=== PATIENT | female | born 1970 | race Caucasian/White ===

== ENCOUNTER 2017-03-29 08:54 | Emergency (ER) | payer MEDICARE, OTHER ==
[~2017-03-29] VITALS: Ht 170.2 cm; Wt 99.8 kg
--- OUTSIDE RECORDS SUMMARY | ~2017-03-29 | XMS | Encounter Summary ---
Demographics + + + | Address | [address] | | | [place] [address] | + + + | Home Phone [...] + + + | Author | [facility] | + + + | Organization | [facility] | + + + | Address | Unknown | + + + | Phone | Unavailable | + + + Support +------+ + + + +-------+ | Name | Relationship | Address | Phone | +------+ + + + +-------+ ECON | [address] | | [place] | [address] | +------+ + + + +-------+ ECON | Unknown | | +------+ + + + +-------+ Care Team Providers + +------+-------+ | Care 3Rd Pressman Name | Role | Phone | + +------+-------+ | Patricia Stevens | PCP | tel | + +------+-------+ Reason for Visit + + + | [...] Treatment Question | | 2017 | | [facility] [address] | [address] | (brace for right | | | | Ave Mailcode: CH8N | [place], [place] | ankle ) | | | | [facility] | [address] | | | | | and Healing, 8th | [phone] | | | | | Floor [place], [place] | | | | | | [address] | | | | | | [phone] | | | +--------+ + + + [...] + +---------+ + | Alcohol Use | Drinks/We | oz/Week | Comments | | | ek | | | + + +---------+ + | No | 0-3 | 0.0 - | | | | Cans of | 1.8 | | | | beer | | | + + +---------+ + + + + | Sex Assigned at | Date Recorded | | | | + + + | Not on file | | + + + as of this encounter Plan of Treatment +--------+ + + + + | Date | Type | Specialty | Care Team | Description | +--------+ + + + + | 04/17/ | Appointment | Radiology | Bernardo, | | | 2017 | | | REENA Hunter | | | | | | [address] | | | | | | [place], [place] | | | | | | [address] | | | | | | [phone] | | | | | | | | +--------+ + + + + | 04/17/ | Office | Neurological Surgery | Nolvia Delgado, | | | 2017 | Visit | | MD [address] | | | | | | [place], [place] | | | | | | [address] | | | | | | [phone] | | | | | | | | +--------+ + + + + as of this encounter Visit Diagnoses + + | Diagnosis | + + | Right leg weakness - Primary | + + | Other musculoskeletal symptoms referable to limbs | + + | Hydrocephalus | + + | Obstructive hydrocephalus | + + | Acute on chronic intracranial subdural hematoma (HCC) | + +"
--- OUTSIDE RECORDS SUMMARY | ~2017-03-29 | XMS | Encounter Summary ---
Demographics + + + | Address | [address] | | | [place] [address] | + + + | Home Phone [...] Author + + + | Author | [facility] | + + + | Organization | [facility] | + + + | Address | Unknown | + + + | Phone | Unavailable | + + + Support +------+ + + + +-------+ | Name | Relationship | Address | Phone | +------+ + + + +-------+ ECON | [address] | | [place] | [address] | +------+ + + + +-------+ ECON | Unknown | | +------+ + + + +-------+ Care Team Providers + +------+-------+ | Care Glazier Apprentice Name | Role | Phone | [...] Treatment Planning | | 2017 | | [facility] [address] | [address] | | | | | [place] Mailcode: CH8N | [place], [place] | | | | | [facility] | [address] | | | | | and [address], 8th | [phone] | | | | | Floor [place], [place] | | | | | | [address] | | | | | | [phone] | | | +--------+ + + + [...] Hunter | | | | | | [address] | | | | | | [place] | | | | | | [address] | | | | | | [phone] | | | | | | | | +--------+ + + + + | 04/17/ | Office | Neurological Surgery | Nolvia Delgado, | | | 2017 | Visit | | MD [address] | | | | | | [place], [place] | | | | | | [address] | | | | | | [phone] | | | | | | | | +--------+ + + + + as of this encounter Visit Diagnoses Not on filein this encounter"
--- OUTSIDE RECORDS SUMMARY | ~2017-03-29 | XMS | Encounter Summary ---
Demographics + + + | Address | [address] | | | [place] [address] | + + + | Home Phone | | + + + | Preferred Language | Unknown | + + + | Marital Status | Single | + + + | Taoist Affiliation | NRP | + + + [...] [address] | | [place] | [address] | +------+ + + + +-------+ ECON | Unknown | | +------+ + + + +-------+ Care Team Providers + +------+-------+ | Care Strength And Conditioning Coach Name | Role | Phone | + [...] | | | Ave Mailcode: CH8N | [place], [place] | ankle ) | | | | [facility] | [address] | | | | | and Healing, 8th | [phone] | | | | | Floor [place], [place] | | | | | | [address] | | | | | | [phone] | | | +--------+ + + + [...] Hunter | | | | | | [address] | | | | | | [place], [place] | | | | | | [address] | | | | | | [phone] | | | | | | | | +--------+ + + + + | 04/17/ | Office | Neurological Surgery | Nolvia Delgado, | | | 2017 | Visit | | MD [address] | | | | | | [place], [place] | | | | | | [address] | | | | | | [phone] | | | | | | | [...]
--- OUTSIDE RECORDS SUMMARY | ~2017-03-29 | XMS | Clinical Summary ---
Demographics + + + | Address | [address] | | | [place] [address] | + + + | Home Phone [address] | | [place] | [address] | +------+ + + + +-------+ ECON | Unknown | | +------+ + + + +-------+ Care Team Providers + +------+-------+ | Care Regional Rehabilitation Director Name | Role | Phone | + +------+-------+ | Patricia Stevens | PP | tel | + +------+-------+ Source Comments MIRIAM is fully live on both [facility] Ambulatory and [facility] InPatient.[facility] Allergies No Known Allergies Current Medications + + +--------+---------+------+------+-------+ | Prescription | Sig. | Disp. | Refills | Star | End | Statu | | | | | | t | Date | s | | | | | | Date | | | + + +--------+---------+------+------+-------+ | MULTIVITAMIN ORAL | Take 1 tablet by | | | | | Activ | | | mouth once daily in | | | | | e | | | the morning. | | | | | | + + +--------+---------+------+------+-------+ | lamoTRIgine 100 mg | Take 100 mg by mouth | | | | | Activ | | Oral tablet | two times daily. | | | | | e | + + +--------+---------+------+------+-------+ | loratadine 10 mg | Take 10 mg by mouth | | | | | Activ | | oral tablet | once daily as needed | | | | | e | | | (seasonal | | | | | | | | allergies). | | | | | | + + +--------+---------+------+------+-------+ | baclofen 10 mg | Take 0.5 tablets by | 30 | 0 | 06/0 | | Activ | | oral | mouth once daily at | tablet | | 8/20 | | e | | tabletIndications: | bedtime. | | | 17 | | | | Muscle Spasticity of | Indications: Muscle | | | | | | | Spinal Origin | Spasticity of Spinal | | | | | | | | Origin | | | | | | + + +--------+---------+------+------+-------+ | acetaminophen 325 | Take 2 tablets by | | | 06/0 | | Activ | | [...] | | | | | + + +--------+---------+------+------+-------+ | oxyCODONE | Take 1-2 tablets by | 50 | 0 | 07/1 | | Activ | | (immediate release) | mouth every six | tablet | | 1/20 | | e | | 5 mg oral | hours as needed for | | | 17 | | | | tabletIndications: | moderate pain or | | | | | | | Pain | severe pain. | | | | | | | | Indications: Pain | | | | | | + + +--------+---------+------+------+-------+ | polyethylene | Mix 1 packet and | | | 07/1 | | Activ | | glycol 17 gram oral | take orally three | | | 1/20 | | e | | powder in | times daily as | | | 17 | | | | packetIndications: | needed (1st line - | | | | | | | Subdural hematoma | for no BM for 2 | | | | | | | (HCC) | days). | | | | | | + + +--------+---------+------+------+-------+ | senna-docusate | Take 2 tablets by | 60 | 0 | 07/ | | Activ | | 8.6-50 mg oral | mouth two times | tablet | | 1/20 | | e | | tabletIndications: | daily. For | | | 17 | | | | constipation | post-operative | | | | | | | | constipation, | | | | | | | | discontinue for | | | | | | | | loose stool. | | | | | | | | Indications: | | | | | | | | constipation | | | | | | + + +--------+---------+------+------+-------+ Active Problems + + + | Problem | Noted Date | + + + | Acute on chronic intracranial subdural hematoma (HCC) | 08/17/2016 | + + + + --+ | Overview: Patient had a known small chronic SDH (stable on CT | | 07/28/2016). On 08/17, noted to be larger (6cm) secondary to | | possible overdrainage from VPS. Strata Valve was increased to 2.5 | | Repeat imaging was stable. Last Assessment & Plan: S/p ALICE | | Hole placement b/l on 09/20.NSICU Goals:Neurochecks Q1HSBP<160Na: | | Eunatremia, Fluid: EuvolemiaWill keep flat x24 hours (6PM on | | 09/21), with mobilization to sit upright for ADLs/nutrition. | |Will keep flat x24 hours (6PM on 09/21), with mobilization to sit upright for ADLs/nutrition. | + --+ + + + | Seizure disorder (HCC) | 08/17/2016 | + + + + [...] Multiple EVD placements, now s/p R occipital DIETITIAN ASSISTANT shunt | | placement in October 2015 [...] + + | 02/18/ | Telephone | | Nolvia Delgado, | | | 2016 | | | MD | | +--------+ + + + + | 01/13/ | Telephone | | Nolvia Delgado, | Treatment Planning | | 2016 | | | MD | | +--------+ + + + + | 01/09/ | Telephone | | Nolvia Delgado, | Treatment Question | | 2016 | | | MD | (brace for right | | | | | | ankle ) | +--------+ + + + + from [...] Filed Vital Signs + + + + | Vital Sign | Reading | Time Taken | + + + + | Blood Pressure | 127/86 | 12/26/2016 3:50 PM PDT | + + + + | Pulse | 74 | 12/26/2016 3:50 PM PDT | + + + + | Temperature | 36.3 C (97.4 F) | 12/26/2016 3:50 PM PDT | + + + + | Respiratory Rate | 16 | 09/24/2016 11:48 AM PDT | + + + + | Oxygen Saturation | 94% | 09/24/2016 11:48 AM PDT | + + + + | Inhaled Oxygen | - | - | | Concentration | | | + + + + | Weight | 96.2 kg (212 lb) | 12/26/2016 3:50 PM PDT | + + + + | Height | 170.2 cm (5' 7") | 09/20/2016 2:44 PM PDT | + + + + | Body Mass Index | 33.2 | 12/26/2016 3:50 PM PDT | + + + + Plan of Treatment +--------+ + + + + | Date | Type | Specialty | Care Team | Description | +--------+ + + + + | 04/17/ | Appointment | | Bernardo, | | | 2017 | | | REENA Hunter | | | | | | [address] | | | | | | [place], [place] | | | | | | [address] | | | | | | [phone] | | | | | | | | +--------+ + + + + | 04/17/ | Office | | Nolvia Delgado, | | | 2017 | Visit | | MD [address] | | | | | | [place], [place] | | | | | | [address] | | | | | | [phone] | | | | | | | | +--------+ + + + + + + + + + | Health Maintenance | Due Date | Last Done | Comments | + + + + + | INFLUENZA VACCINE | | | | | (FLU SHOT) | 7 | | | + + + + + Implants + +------+--------+ +--------+--------+--------+ | Implanted | Type | Area | Manufacture | Device | Expira | Model | | | | | r | | tion | / | | | | | | Identi | Date | Serial | | | | | | fier | | / Lot | + +------+--------+ +--------+--------+--------+ | Evd CathImplanted: Qty: 1 on | | Left: | | | 10/18/ | [id number] | | 03/20/2012 by Carlos Baron, | | Head | | | 2013 | 0 / | | MD | | | | | | /[id number] | | | | | | | | 7 | + +------+--------+ +--------+--------+--------+ | Catheter Bactiseal Shunt Kit | | | HAYDEN & | | 08/14/ | [id number] | | - [id number]: Qty: 1 | | | HAYDEN | | 2017 | 2 / | | on 11/08/2015 by Nathaniel Ybarra | | | JOSE | | | /CVP | | D, MD | | | | | | D | + +------+--------+ +--------+--------+--------+ | Valve Shunt Strata Ii Csf | | | [employer] | | 08/14/ | [id number] | | Small 30mm Full Port 2in - | | | SOFAMOR | | 2018 | / | | [id number]: Qty: 1 on | | | TANYA | | | /[id number] | | 11/08/2015 by Nathaniel Ybarra D, | | | | | | 5 | | MD | | | | | | [...] | | | | | | | [id number]: Qty: 10 | | | | | | | | on 09/20/2016 by Ashish, | | | | | | | | Nata Wolf MD | | | | | | | + +------+--------+ +--------+--------+--------+ | Cover Adger Hole .5mm 17mm | | Left: | [facility] | | | 421.52 | | Craniomaxillofacial Titanium | | Head | | | | 7 / / | | Low Profile Nonsterile - | | | | | | | | [id number]: Qty: 1 on | | | | | | | | 09/20/2016 by Nolvia Delgado | | | | | | | | MD Azul | | | | | | | + +------+--------+ +--------+--------+--------+ | Cover Adger Hole .5mm 12mm | | Right: | [facility] | | | 421.52 | | Craniomaxillofacial Titanium | | Head | | | | 5 / / | | Low Profile Nonsterile - | | | | | | | | [id number]: Qty: 2 on | | | | | | | | 09/20/2016 by Ashish, | | | | | | | | Nata Wolf MD | | | | | | | + +------+--------+ +--------+--------+--------+ Results Not on filefrom Last 3 Months
--- OUTSIDE RECORDS SUMMARY | ~2017-03-29 | XMS | Encounter Summary ---
Demographics + + + | Address | [address] | | | [place] [address] | + + + | Home Phone [address] | | [place] | [address] | +------+ + + + +-------+ ECON | Unknown | | +------+ + + + +-------+ Care Team Providers + +------+-------+ | Care Tilting Saw Operator Name | Role | Phone | + +------+-------+ | Patricia Stevens | PCP | tel | + +------+-------+ Reason for Referral Diagnostic Testing (Routine) + +--------+ + + + + | Status | Reason | Specialty | Diagnoses / | Referred By | Referred To | | | | | Procedures | Contact | Contact | + +--------+ + + + + | New Request | | Radiology | Diagnoses | Bernardo, | | | | | | | Kristen Duran, | | | | | | Hydrocephalu | PA [address] | | | | | | s Acute on | [address] | | | | | | chronic | [place], [place] | | | | | | intracranial | [address] | | | | | | subdural | Phone: | | | | | | hematoma | [phone] | | | | | | ([facility]) | Fax: | | | | | | Procedures | [phone] | | | | | | CT HEAD WO | | | | | | | CONTRAST | | | + +--------+ + + + + Encounter Details +--------+ + + + + | Date | Type | Department | Care Team | Description | +--------+ + + + + | 02/18/ | Telephone | Neurosurgery at | Nolvia Delgado, | | | 2016 | | [facility] [address] | MD [address] | | | | | Ave Mailcode: CH8N | [facility] [place] | | | | | [facility] | [address] | | | | | and Healing, 8th | [phone] | | | | | Floor [place], [place] | | | | | | [address] | | | | | | [phone] | | | +--------+ + + + [...] Hunter | | | | | | [address] | | | | | | [facility] [place] | | | | | | [address] | | | | | | [phone] | | | | | | | | +--------+ + + + + | 04/17/ | Office | Neurological Surgery | Nolvia Delgado, | | | 2017 | Visit | | [address] | | | | | | [place], [place] | | | | | | [address] | | | | | | [phone] | | | | | | | | +--------+ + + + + + +--------+ + + | Name | Priori | Associated Diagnoses | Order Schedule | | | ty | | | + +--------+ + + | CT HEAD WO CONTRAST | Routin | Hydrocephalus | Expected: | | | e | Acute on chronic | 02/18/2017, Expires: | | | | intracranial | 03/21/2018 | | | | subdural hematoma | | | | | ([facility]) | | + +--------+ + + as of this encounter Visit Diagnoses + + | Diagnosis | + + | Hydrocephalus - Primary | + + | Obstructive hydrocephalus | + + | Acute on chronic intracranial subdural hematoma (HCC) | + +"
--- OUTSIDE RECORDS SUMMARY | ~2017-03-29 | XMS | Clinical Summary ---
Demographics + + + | Address | [address] | | | [place] [address] | + + + | Home Phone [address] | | [place] | [address] | +------+ + + + +-------+ ECON | Unknown | | +------+ + + + +-------+ Care Team Providers + +------+-------+ | Care Social Worker Clinical Name | Role | Phone | + +------+-------+ | Patricia Stevens | PP | tel | + +------+-------+ Source Comments MIRIAM is fully live on both [facility] Ambulatory and [facility] InPatient.[facility] Allergies No Known Allergies Current Medications + [...] Multiple EVD placements, now s/p R occipital HUMAN SERVICE SPECIALIST shunt | | placement in October 2015 [...] Hunter | | | | | | [address] | | | | | | [place], [place] | | | | | | [address] | | | | | | [phone] | | | | | | | | +--------+ + + + + | 04/17/ | Office | | Nolvia Delgado, | | | 2017 | Visit | | MD [address] | | | | | | [place], [place] | | | | | | [address] | | | | | | [phone] | | | | | | | [...] MD | | | | | | /[id number] | | | | | | | | 7 | + +------+--------+ +--------+--------+--------+ | Catheter Bactiseal Shunt Kit | | | HAYDEN & | | 08/14/ | [id number] | | - [id number]: Qty: 1 | | | HAYDEN | | 2017 | 2 / | | on 11/08/2015 by Nathaniel Ybarra | | | JOSE | | | /CVP | | D, MD | | | | | | D | + +------+--------+ +--------+--------+--------+ | Valve Shunt Strata Ii Csf | | | [employer] | | 08/14/ | [id number] | | Small 30mm Full Port 2in - | | | SOFAMOR | | 2018 | / | | [id number]: Qty: 1 on | | | TANYA [...] | | | | | | | [id number]: Qty: 10 | | | | | | | | on 09/20/2016 by Ashish, | | | | | | | | Nata Wolf MD | | | | | | | + +------+--------+ +--------+--------+--------+ | Cover [place] Hole .5mm 17mm | | Left: | [facility] | | | 421.52 | | Craniomaxillofacial Titanium | | Head | | | | 7 / / | | Low Profile Nonsterile - | | | | | | | | [id number]: Qty: 1 on | | | | | | | | 09/20/2016 by Nolvia Delgado | | | | | | | | MD Azul | | | | | | | + +------+--------+ +--------+--------+--------+ | Cover [place] Hole .5mm 12mm | | Right: | [facility] | | | 421.52 | | Craniomaxillofacial Titanium | | Head | | | | 5 / / | | Low Profile Nonsterile - | | | | | | | | [id number]: Qty: 2 on | | | | | | | | 09/20/2016 by Ashish, | | | | | | | | Nata Wolf MD | | | | | | | + +------+--------+ +--------+--------+--------+ Results Not on filefrom Last 3 Months
--- OUTSIDE RECORDS SUMMARY | ~2017-03-29 | XMS | Encounter Summary ---
Demographics + + + | Address | [address] | | | [place] [address] | + + + | Home Phone [address] | | [place] | [address] | +------+ + + + +-------+ ECON | Unknown | | +------+ + + + +-------+ Care Team Providers + +------+-------+ | Care Grade Teacher Name | Role | Phone | [...] | | | [address] Mailcode: CH8N | [place], [place] | | | | | [facility] | [address] | | | | | and [address], 8th | [phone] | | | | | Floor [place], [place] | | | | | | [address] | | | | | | [phone] | | | +--------+ + + + [...] [place] | | | | | | [address] | | | | | | [phone] | | | | | | | | +--------+ + + + + | 04/17/ | Office | Neurological Surgery | Nolvia Delgado, | | | 2017 | Visit | | MD [address] | | | | | | [place], [place] | | | | | | [address] | | | | | | [phone] | | | | | | | | +--------+ + + + + as of this encounter Visit Diagnoses Not on filein this encounter"
--- OUTSIDE RECORDS SUMMARY | ~2017-03-29 | XMS | Encounter Summary ---
Demographics + + + | Address | [address] | | | [place] [address] | + + + | Home Phone [address] | | [place] | [address] | +------+ + + + +-------+ ECON | Unknown | | +------+ + + + +-------+ Care Team Providers + +------+-------+ | Care Stage Set Up Worker Name | Role | Phone | + +------+-------+ | Patricia Steevns | PCP | tel | + +------+-------+ [...] | | | | | chronic | [place], [place] | | | | | | intracranial | [address] | | | | | | subdural | Phone: | | | | | | hematoma | [phone] | | | | | | ([facility]) | Fax: | | | | | | Procedures | [phone] | | | | | | CT [...] | | | Ave Mailcode: CH8N | [facility] [place] | | | | | [facility] | [address] | | | | | and Healing, 8th | [phone] | | | | | Floor [place], [place] | | | | | | [address] | | | | | | [phone] | | | +--------+ + + + [...] Hunter | | | | | | [address] | | | | | | [facility] [place] | | | | | | [address] | | | | | | [phone] | | | | | | | | +--------+ + + + + | 04/17/ | Office | Neurological Surgery | Nolvia Delgado, | | | 2017 | Visit | | [address] | | | | | | [place], [place] | | | | | | [address] | | | | | | [phone] | | | | | | | [...] subdural hematoma | | | | | ([facility]) | | + +--------+ + + as of this encounter Visit Diagnoses + + | Diagnosis | + + | Hydrocephalus - Primary | + + | Obstructive hydrocephalus | + + | Acute on chronic intracranial subdural hematoma (HCC) | + +"
[~2017-03-29 08:54] MED LIST: BACLOFEN10 MG PO; LAMOTRIGINE100 MG PO; MULTI VITAMIN1 EACH PO; VITAMIN B COMP1 EACH PO
[2017-03-29] MEDS ORDERED: BACLOFEN10 MG PO (09:21)
[2017-03-29] MEDS ORDERED: NORCO 5-325 TA1 EACH PO (09:39)
== END 2017-03-29 12:02 | disposition home or self-care (01) ==
LOC: ED 08:54
DX: S83.92XA Sprain of unspecified site of left knee, initial encounter (principal); Z98.890 Other specified postprocedural states; Z98.2 Presence of cerebrospinal fluid drainage device; Z79.899 Other long term (current) drug therapy; X50.9XXA Other and unspecified overexertion or strenuous movements or postures, initial encounter
CPT/HCPCS: 73560; 96372; 99283; J2270

== ENCOUNTER 2019-10-25 06:59 | Emergency (ER) | payer MEDICARE, OTHER ==
[~2019-10-25] VITALS: Ht 170.2 cm; Wt 99.8 kg
--- OUTSIDE RECORDS SUMMARY | ~2019-10-25 | XMS | Encounter Summary ---
Demographics + + + | Address | [address] | | | [place] [address] | + + + | Home Phone | | + + + | Preferred Language | Unknown | + + + | Marital Status | Single | + + + | Adventist Affiliation | NRP | + + + | Race | White | + + + | Ethnic Group | Not or | + + + Author + + + | Author | [facility] | + + + | Organization | [facility] | + + + | Address | Unknown | + + + | Phone | Unavailable | + + + Support + + + + + | Name | Relationship | Address | Phone | + + + + + | Malina Nicole | ECON | [address] | | | | | [place] | | | | | [address] | | + + + + + | Scott Nicole | ECON | Unknown | | + + + + + Care Team Providers + +------+ + | Care Epic Beacon Analyst Name | Role | Phone | + +------+ + | Gabe Baird DO | PCP | | + +------+ + Encounter Details +--------+ + + + + | Date | Type | Department | Care Team | Description | +--------+ + + + + | 04/13/ | Anesthesia | Preoperative | Aram, Tania, RN | | | 2020 | Event | Medicine Clinic at | [place], [place] | | | | | [facility] | [address] | | | | | [address] | | | | | | [facility] | | | | | | and Healing, | | | | | | [address] | | | | | | [place], [place] | | | | | | [address] | | | | | | [phone] | | | +--------+ + + + + Anesthesia Record + + + + + | Procedure Name | Responsible | Anesthesia Start | Anesthesia Stop Time | | | Anesthesiologist | Time | | + + + + + | PREANESTHETIC | | | | | EVALUATION | | | | + + + + + + + | No events on file. | + + +------+ | Meds | +------+ + + + No medications | on file. | + + + + + | No agents on file. | + + + + | No blood administrations on file. | + + + + | No LDAs on file. | + + documented in this encounter Social History + +-------+ +--------+------+ | Tobacco Use | Types | Packs/Day | Years | Date | | | | | Used | | + +-------+ +--------+------+ | Never Smoker | | | | | + +-------+ +--------+------+ + +---+---+---+ | Smokeless Tobacco: | | | | | Never Used | | | | + +---+---+---+ + + + + + | Alcohol Use | Drinks/Week | oz/Week | Comments | + + + + + | No | 0-3 Cans of beer | 0.0 - 3.0 | | + + + + + + + + | Sex Assigned at | Date Recorded | | | | + + + | Not on file | | + + + + + + + | Job Start Date | Occupation | Industry | + + + + | Not on file | Not on file | Not on file | + + + + + + + + | Travel History | Travel Start | Travel End | + + + + + + | No recent travel history available. | + + documented as of this encounter Functional Status + + + + | Functional Status | Response | Date of Assessment | + + + + | Because of a physical, mental, or emotional | Yes | 08/27/2018 | | condition, do you have serious difficulty | | | | doing errands alone such as visiting the | | | | doctor? | | | + + + + + + + + | Cognitive Status | Response | Date of Assessment | + + + + | Because of a physical, mental, or emotional | Yes | 08/27/2018 | | condition, do you have serious difficulty | | | | concentrating, remembering, or making | | | | decisions? (5 years old or older) | | | + + + + documented as of this encounter Plan of Treatment +--------+---------+ + + + | Date | Type | Specialty | Care Team | Description | +--------+---------+ + + + | 11/24/ | Office | Neurological Surgery | Nolvia Delgado, | | | 2020 | Visit | | [address] | | | | | | [place], [place] | | | | | | [address] | | | | | | [phone] | | | | | | | | +--------+---------+ + + + documented as of this encounter Visit Diagnoses Not on filedocumented in this encounter"
--- OUTSIDE RECORDS SUMMARY | ~2019-10-25 | XMS | Encounter Summary ---
Demographics + + + | Address | [address] | | | [place] [address] | + + + | Home Phone | | + + + | Preferred Language | Unknown | + + + | Marital Status | Single | + + + | Baptist Affiliation | NRP | + + + | Race | White | + + + | Ethnic Group | Not or | + + + Author + + + | Author | [facility] | + + + | Organization | [facility] | + + + | Address | Unknown | + + + | Phone | Unavailable | + + + Support + + + + + | Name | Relationship | Address | Phone | + + + + + | Malina Nicole | ECON | [address] | | | | | [place] | | | | | [address] | | + + + + + | Scott Mcgarry ECON | Unknown | | + + + + + Care Team Providers + +------+ + | Care Fire Control Technician B Name | Role | Phone | + +------+ + | Patricia Stevens | PCP | | + +------+ + Reason for Visit + + + | Reason | Comments | + + + | Foot pain | R | + + + | New patient | | | consultation | | + + + AUTH/CERT +--------+--------+ + + + + | Status | Reason | Specialty | Diagnoses / | Referred By | Referred To | | | | | Procedures | Contact | Contact | +--------+--------+ + + + + | Closed | | | | | | +--------+--------+ + + + + Encounter Details +--------+---------+ + + + | Date | Type | Department | Care Team | Description | +--------+---------+ + + + | 09/14/ | Office | Orthopaedics | Asim Sales, | Acquired equinovarus | | 2013 | Visit | [facility] at [facility] | MD [place] | deformity of right | | | | for Health and | [place], [place] | foot (Primary Dx) | | | | Healing [address] | [address] | | | | | [address] [facility] | [phone] | | | | | Health and Healing, | | | | | | [facility] | | | | | | [place], [place] | | | | | | [address] | | | | | | [phone] | | | +--------+---------+ + + + Social History + +-------+ +--------+------+ | Tobacco Use | Types | Packs/Day | Years | Date | | | | | Used | | + +-------+ +--------+------+ | Never Smoker | | | | | + +-------+ +--------+------+ + +---+---+---+ | Smokeless Tobacco: | | | | | Never Used | | | | + +---+---+---+ + + +---------+ + | Alcohol Use | Drinks/Week | oz/Week | Comments | + + +---------+ + | Yes | 3 Standard drinks | 2.5 | 3 glasses of beer | | | or equivalent | | per week | + + +---------+ + + + + | Sex Assigned [...] + + documented as of this encounter Last Filed Vital Signs + + + + + | Vital Sign | Reading | Time Taken | Comments | + + + + + | Blood Pressure | 130/80 | 09/14/2013 7:48 AM | | | | | PDT | | + + + + + | Pulse | 75 | 09/14/2013 7:48 AM | | | | | PDT | | + + + + + | Temperature | - | - | | + + + + + | Respiratory Rate | - | - | | + + + + + | Oxygen Saturation | - | - | | + + + + + | Inhaled Oxygen | - | - | | | Concentration | | | | + + + + + | Weight | 95.3 kg (210 lb) | 09/14/2013 7:48 AM | | | | | PDT | | + + + + + | Height | 174 cm (5' 8.5") | 09/14/2013 7:48 AM | | | | | PDT | | + + + + + | Body Mass Index | 31.47 | 09/14/2013 7:48 AM | | | | | PDT | | + + + + + documented in this encounter Progress Notes Kamlesh Smith MD - 09/14/2013 8:12 AM PDTFormatting of this note might be different fro shannan the original. Orthopaedic Surgery Foot and Ankle New Patient History and Physical Patient: /Age: MRN: CSN: Date: Rin Casas 1970 43 y.o. [id number] 09/14/2013 SUBJECTIVE: Date of injury NA Chief Complaint: Right ankle pain and deformity Rin Casas is a 43 y.o. female who is here for evaluation of right ankle and foot pain that occurred without any specific injury. She has a history of quadriplegic spastic cereb ral palsy. Previous left foot reconstruction in 1983 in [place] Symptoms have been ongoing for 10 years. The symptoms are located in the right ankle without radiation distally. Pain is approximately 7/10 in intensity and described as intermittent and worsening over th e last 10 years. Pain located along posterior tib and through medial midfoot. There is no numbness she does have weakness in the right upper extremity and right lower ex tremity which has been present for many years however worse as she has her hydronephrosis de veloping, she sees Dr Delgado for this and had it drained 1 year ago and planned for further drainage today. Aggravating factors are standing for long periods or walking. The symptoms are relieved by rest. Currently she uses a walker for ambulation. With her worsening hydronephrosis she cu rrently is only able to transfer and take a few steps Ms. Casas's past treatment includes bracing with solid ankle-foot orthosis with no current benefit and she has not worn these for many years due to pain. Also has attempted botox inj ections for spacticity which she did not tolerate The patient has had x-rays done for this condition. 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 MULTIVITAMIN ORAL Take by mouth. VITAMIN B COMPLEX ORAL Take by mouth. No current facility-administered medications for this visit. History Social History Marital Status: Single Spouse Name: N/A Number of Children: N/A Years of Education: N/A Occupational History Not on file. Social History Main Topics Smoking status: Never Smoker Smokeless tobacco: Never Used Alcohol Use: 1.5 oz/week 3 drink(s) per week Comment: 3 glasses of beer per week Drug Use: No Sexually Active: Not on file Other Topics Concern Not on file Social History Narrative No narrative on file No Known Allergies Review of Systems: A full 14 Point review of systems was conducted, and is negative except as noted. Significant for hydronephrosis Physical Exam: GA: Rin Casas is a 43 y.o. female who is a well-formed, well nourished woman in no a cute distress. She is alert and oriented x 3. Affect is appropriate. BP 130/80 | Pulse 75 | Ht 1.74 m (5' 8.5") | Wt 95.255 kg (210 lb) | BMI 31.46 kg/(m^2) Weight bearing status is Full bilaterally and gait is toe-toe on the right she is only able to take a few steps. Inspection: on right *Skin of the bilateral lower extremities reveals no ecchymosis, rash and skin lesions. *Nails of the affected extremity show chronic changes and onchomycosis. *There is mild swelling. *Bunion is absent. *Cavus foot alignment is mild but present . *Planovalgus foot alignment is absent. *Metatarsalgia is absent. Palpation reveals tenderness along the posterior tib, medial midfoot. There is no tendern ess along the tibia, fibula, and forefoot. *Ankle ROM is decreased and equinus noted dorsiflexion is -20 with plantarflexion to 30. *Subtalar ROM is decreased and painful Ankle Motor Exam: on right *Posterior tibialis is 5/5 *Extensor hallucis longus is 5/5 *Gastroc/soleous 5/5 *Tibialis anterior 2/5 *Peroneals 2/5. Foot Exam: on right *First ray increased mobility is present . *Toe ROM is normal. *Hammer or Claw toe is absent *Gastrocnemius driven equinus is present Neurological Exam: Evidence of neuropathy is absent on right. Left Sensability with light touch is intact in SP/DP/S/S/P Right Sensability with light touch is intact in SP/DP/S/S/P Vascular Exam: The dorsal pedalis are palpable and diminished. Edema is mild but present . X-ray: I reviewed X-rays, and these images showed equinus position of the hindfoot mild cav us no osteoarthritis of the subtalar joint or tibiotalar joint noted. ASSESSMENT: Ms. 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 PLAN: We discussed these findings with Ms. Casas, and reviewed the merits of both conservative an d operative management. *Bracing may be useful in the future but is currently not tolerated (she has double upright AFOs) *Weightbearing status is weight-bearing as tolerated *We did discuss surgical release of the PTT and DENISSE with possible PTT transfer. We also re commended getting a second opinion; names of F&A specialists locally were given. I also advised her to discuss with her primary care physician and Neurologist to see if the re are any contraindications to surgery following her procedure planned today. We discussed surgical interventions which would be post tib release versus transfer with he el cord lengthening, with goals of surgery to be to create a bracable foot. *Followup will be after she sees her other physicians to discuss her fitness for surgical i ntervention. I personally interviewed the patient, duplicated the pertinent parts of the physical examin ation and personally formulated the plan with the resident. I have reviewed, entered my fin dings, and agree with the above documentation. Asim Norman M.D. [employer] Power Shovel Operator Foot and Ankle Surgery Department of Orthopedics & Rehabilitation [facility] [phone] documented in this en counter Plan of Treatment +--------+---------+ + + + | Date | Type | Specialty | Care Team | Description | +--------+---------+ + + + | 11/24/ | Office | Neurological Surgery | Nolvia Delgado, | | | 2019 | Visit | | MD [place] [place] | | | | | | [place], [place] | | | | | | [address] | | | | | | [phone] | | | | | | | | +--------+---------+ + + + documented as of this encounter Results X-RAY FOOT 3 VIEWS RIGHT (09/14/2013 7:47 AM PDT) + + + + + + | Component | Value | Ref Range | Performed | Pathologist | | | | | At | Signature | + + + + + + | FOOT 3 | EXAM: FOOT 3 VIEWS | | | | | VIEWS RIGHT | RIGHT HISTORY: Pain | | | | | | COMPARISON: Ankle | | | | | | radiographs 06/26/2012 | | | | | | FINDINGS:The soft | | | | | | tissues are | | | | | | unremarkable. Normal | | | | | | alignment. No fracture | | | | | | or bonedestruction is | | | | | | evident. Joint spaces | | | | | | are maintained. | | | | | | Accessory ossicles | | | | | | arenoted. IMPRESSION: No | | | | | | abnormality identified. | | | | | | Attending | | | | | | Radiologists: BRAIN GRIGSBY, | | | | | | MDAuthor: MILLIE | | | | | | MD AWIDLA I have | | | | | | personally viewed this | | | | | | procedure/exam, reviewed | | | | | | this report, and | | | | | | madechanges to it where | | | | | | appropriate. | | | | | | Final/Electronically | | | | | | signed / BRAIN GRIGSBY | | | | | | 09/14/2013 10:53 AM | | | | | | | | | | + + + + + + + + | Specimen | + + | | + + + +---------+ + + | Performing | Address | City/State/Zipcode | Phone Number | | Organization | | | | + +---------+ + + | [facility] | | | | RADIOLOGY | | | | + +---------+ + + documented in this encounter Visit Diagnoses + + | Diagnosis | + + | Acquired equinovarus deformity of right foot - Primary | + + documented in this encounter
--- OUTSIDE RECORDS SUMMARY | ~2019-10-25 | XMS | Encounter Summary ---
Demographics + + + | Address | [address] | | | [place] [address] | + + + | Home Phone | | + + + | Preferred Language | Unknown | + + + | Marital Status | Single | + + + | Bahai Affiliation | NRP | + + + [...] [place] | | | | | [phone] | | + + + + + | Scott Mcgarry ECON | Unknown | | + + + + + Care Team Providers + +------+ + | Care Plug Drill Operator Name | Role | Phone | + +------+ + | Patricia Stevens | PCP | | + +------+ + Reason for Visit + + + | Reason | Comments | + + + | Neurologic Problem | | + + + AUTH/CERT +--------+--------+ + + + + | Status | Reason | Specialty | Diagnoses / | Referred By | Referred To | | | | | Procedures | Contact | Contact | +--------+--------+ + + + + | | | | | | | +--------+--------+ + + + + Encounter Details +--------+---------+ + + + | Date | Type | Department | Care Team | Description | +--------+---------+ + + + | 11/07/ | Surgery | 6A Intra Op [id number] | Nathaniel Ybarra MD | RIGHT OCCIPITAL | | 2016 | | [facility] | [address] | [address] | | | | Rd [facility] | [place], [place] | SHUNT PLACEMENT | | | | Hospital Admitting | [address] | WITH STEALTH | | | | Desk Located on the | [phone] | | | | | 9th floor | | | | | | [place], [place] | | | | | | [address] | | | +--------+---------+ + + + [...] | + + + + + | Yes | 0-3 Cans of beer | 0.0 - 3.0 | 3 glasses of beer | | | | | per week | + + + + + + [...] + + + | Blood Pressure | 133/81 | 11/09/2015 8:00 AM | | | | | PDT | | + + + + + | Pulse | 101 | 11/09/2015 8:00 AM | | | | | PDT | | + + + + + | Temperature | 37.2 C (99 F) | 11/09/2015 8:00 AM | | | | | PDT | | + + + + + | Respiratory Rate | 18 | 11/09/2015 8:00 AM | | | | | PDT | | + + + + + | Oxygen Saturation | 91% | 11/09/2015 8:00 AM | | | | | PDT | | + + + + + | Inhaled Oxygen | - | - | | | Concentration | | | | + + + + + | Weight | 94.7 kg (208 lb 12.4 | 11/06/2015 9:00 PM | | | | oz) | PDT | | + + + + + | Height | 172.7 cm (5' 8") | 11/08/2015 8:57 AM | | | | | PDT | | + + + + + | Body Mass Index | 31.74 | 11/06/2015 9:00 PM | | | | | PDT | | + + + + + documented in this encounter Discharge Summaries Kristen Chang PA - 11/09/2015 9:59 AM PDTFormatting of this note might be differe nt from the original. NEUROSURGERY DISCHARGE SUMMARY: Patient: Rin Casas Admission Date: 11/06/2015 Discharge Date: 11/09/2015 Attending Physician: Nathaniel Ybarra MD PCP: REENA Gusman Service: [facility] Neurosurgery Diagnoses Principal Final Diagnosis: Hydrocephalus. Additional Diagnoses: None Past Medical History: Epilepsy, partial (HCC) Cerebral palsy (HCC) Spastic quadriparesis (HCC) H/O hydrocephalus S/P placement of VNS (vagus nerve stimulation)* 2001 Seizures (HCC) Legally blind Procedures Procedure performed: 11/08/2015 Stealth-guided right occipital ventriculoperitoneal shunt with Strata valve set at 2.0. Brief Hospital Course Ms. Rin Casas is a 45-year-old woman with a history of cerebral palsy, spastic quadripare sis, epilepsy and hydrocephalus who is status post 2 previous endoscopic third ventriculosto mies. She presented to the emergency room with complaints of progressive decline including: less control of her bilateral arms and impairment in bladder function. These symptoms were c onsistent with her previous ETV failure events. Given the failure of her ETV on multiple occ asions now, a ventriculoperitoneal shunt placement was indicated. The patient and her family elected to proceed with this surgery. She was taken to the OR and underwent the planned pro cedure on 11/08/15. Post operatively, the patient was admitted to the hospital jacob for ongoing convalescent ca re. The patient made appropriate gains toward activity and functional goals while an inpati ent. While on the hospital floor, the patient tolerated oral intake sufficient to maintain nutri tion and hydration. The surgical wound remained clean, dry, and intact without signs concern ing for infection. Her pain was adequately controlled with oral medications. The patient was felt appropriate for discharge to home with family on 11/09/2015, and the patient and/or [facility] members agree with this course of action. Activity Avoid heavy lifting, repetitive bending and all strenuous activity until further notice. No driving while taking oral narcotics/pain medications. Wound care: You may shower and wash your hair 3 days after surgery. Wound sutures are absorbable and wi ll fall off on their own. You may remove the steri-strip on your abdominal incision in 1 cornelius rena. Destination: Destination: Home Condition on Discharge Good Follow Up Follow up at [facility], 8th Floor, [address] [place] [address]; . You will be contacted to make a follow up visit for 2-3 weeks post op. PCP:REENA Gusman When: Please follow-up with your primary care physician as soon as possible to review new medications and recent interventions Call: Please call and ask for the Neurosurgery Resident on-call if you have any of the following: - Difficulty breathing or unusual shortness of breath - Excessive bleeding, drainage at the operative site - Fevers, chills, increased pain that is not relieved by pain medications - Persistent nausea or vomiting - Severe headaches, dizziness, or visual changes Current Discharge Medication List START taking these medications Details oxyCODONE, immediate release, 5 mg oral tablet Take 1-2 tablets by mouth every six hours as needed for severe pain. Qty: 30 tablet, Refills: 0 senna-docusate 8.6-50 mg oral tablet Take 1 tablet by mouth two times daily. For constipati on while taking pain medications, discontinue for loose stool or diarrhea Qty: 60 tablet, Refills: 0 CONTINUE these medications which have CHANGED or have new prescriptions Details acetaminophen 325 mg oral tablet Take 1-2 tablets by mouth every four hours as needed for f ever or moderate pain. ondansetron ODT (ZOFRAN ODT) 4 mg oral tablet,disintegrating Dissolve 1 tablet in mouth araseli ry twelve hours as needed for nausea/vomiting. Qty: 20 tablet, Refills: 1 CONTINUE these medications which have NOT CHANGED Details lamoTRIgine 100 mg Oral tablet Take 100 mg by mouth two times daily. MULTIVITAMIN ORAL Take 1 tablet by mouth once daily in the morning. polyethylene glycol 17 gram/dose oral powder Take 34 g by mouth three times daily as needed (for no BM for 2 days). Qty: 119 g, Refills: 1 VITAMIN B COMPLEX ORAL Take 1 tablet by mouth once daily in the morning. STOP taking these medications bisacodyl 10 mg rectal suppository Comments: Reason for Stopping: Special Instructions/Tests: none Condition On Discharge: Good Vital Signs at discharge as appropriate: BP: 126/71 mmHg (11/09/15311) Pulse: 109 (11/09/15311) Resp: 20 ( 11/09/15311) Weight: 94.7 kg (208 lb 12.4 oz) (11/06/15 2100) Discharge Patient To: Home Does patient have a planned readmission: No Discharge Summary Completed?: Yes. 11/09/2015 Discharging Provider: Kristen Chang PA-C Date Completed: 11/09/2015 Time Completed: 9:59 AM Discharging Attending: Nathaniel Ybarra MD [facility] [address] [place] [address] documented in t his encounter Medications at Time of Discharge + + + +---------+--------+ + | Medication | Sig | Dispensed | Refills | Start | End Date | | | | | | Date | | + + + +---------+--------+ + | lamoTRIgine 100 mg | Take 100 mg by mouth | | 0 | | | | Oral tablet | two times daily. | | | | | + + + +---------+--------+ + documented as of this encounter Progress Notes Kristen Chang PA - 11/09/2015 7:11 AM PDTFormatting of this note might be differe nt from the original. NEUROSURGERY INPATIENT PROGRESS NOTE Hospital Day:3 Author; Kristen Chang PA-C Attending Physician: Nathaniel Ybarra MD Interval Hx: -No events overnight -Pt. Reports pain control adequate, tolerating po intake, voiding. -Repeat Head CT pending Physical Exam: Last Vitals: BP 126/71 | Pulse 109 | Temp 36.8 C (98.2 F) | RR 20 | Ht 1.727 m (5' 8") | Wt 94.7 kg (208 lb 12.4 oz) | SpO2 94% | BMI 31.75 kg/(m^2) O2 Delivery Device: None (room air) (11/09/15311) 24 Hour Vital Min/Max: Systolic (24hrs), Av mmHg, Min:98 mmHg, Max:154 mmHg Diastolic (24hrs), Av mmHg, Min:71 mmHg, Max:113 mmHg Pulse Min: 83 Max: 123 Temp Min: 36.3 C (97.3 F) Max: 36.8 C (98.2 F) Resp Min: 14 Max: 22 SpO2 Min: 93 % Max: 100 % Intake/Output Summary (Last 24 hours) at 11/09/15 0712 Last data filed at 11/09/15 0320 Gross per 24 hour Intake 2390 ml Output 975 ml Net 1415 ml Labs CULTURE, URINE [facility] Status: Final result Visible to patient: Not Released Next appt: None Normal Culture Mixed Patrica, Likely Contamination Multiple Organisms are present indicating probable contamination or colonization not relate d to infection. Further work-up of these organisms may result in misleading information due to low numbers and/or mixture of organisms present. Recollection is suggested if clinically indicated. Resulting Agency: [facility] CORE LAB Specimen Collected: 11/07/15 8:07 AM General: 45 y/o Female NAD Incisions: Scalp and abdomen: C/D/I, no erythema Neuro: Alert and oriented x 3, PERRL, EOMI, face symmetric Motor: MOTOR SCORE LEFT RIGHT C5 (Shoulder Abduct) 5 5 C6 (Elbow Flex) 5 5 C7 (Elbow Ext) 5 5 C8 (Wrist Ext) 5 5 T1 (Pinky Abd) 5 5 L2 (Hip Flex) 5 5 L3 (Knee Ext) 5 5 L4 (Dorsiflexion) 5 5 L5 (EHL) 5 5 S1 (Plantar Flex) 5 5 Coordination: BUE moderate dysmetria Sensation: Light Touch: intact Ext: no edema, deformity Psychiatric: Appropriate and cooperative Assessment/Plan: Rin Casas is a 45 y.o. female with a history of cerebral palsy, spas tic quadriparesis, epilepsy and hydrocephalus who is status post 2 previous endoscopic third ventriculostomies, with evidence of ETV failure, now POD #1 s/p Stealth-guided right occipi radha ventriculoperitoneal shunt with Strata valve set at 2.0. Doing well post operatively. Neurological: Neuro exam improving post op. Seizure d/o-continue home AED, Analgesia-post op pain management appears adequate, monitor Cardiovascular: HD stable Pulm: No active issues. HEENT: No active issues. GI: oral diet; anti-emetics prn; GI ppx / Renal: voiding independently. ID/HO: Afebrile, no active issues Endocrine: No active issues. No need for ISS presently. Musculoskeletal / Skin: Routine decubitus ulcer prevention. Wound care: Wound care per protocol-may shower and wash hair on POD #3- sutures are absorba ble and will fall off on their own. Rehab: PT this am DVT prophylaxis: mobilize out of bed; SCDs Disposition: Anticipate DC to home with family today, pending results of PT eval and repeat Head CT. FU in clinic 2 weeks post op. Kristen Chang PA-C [facility] [address] [address]/[place] [address] Pg [id number] Associated attestation - Nathaniel Ybarra MD - 11/09/2015 1:02 PM PDTI have personally perfor med a face to face diagnostic evaluation on this patient. I have reviewed and agree with the care plan. History and Exam by me shows: 45 yo F POD 1 s/p CONFIGURATION MANAGEMENT CONSULTANT shunt. Pt states symptoms are improved. At neuro baseline. Imaging appropriate. D/C home today. Nathaniel Ybarra MD [facility] [address] [address]/[place] [address] Jason Pappas MD - 11/08/2015 1:07 PM PDT NEUROSURGERY POST OPERATIVE CHECK Author: Jason Pappas MD Date: 03/25/2015 PROCEDURE: Stealth-guided right occipital ventriculoperitoneal shunt with Strata valve set at 2.0. 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 Flat. No fluid collection. No fluctuance. No drainage/CSF leak noted A/P: Neurologically stable. Continue care: - up ad jarvis - CT scan tomorrow AM - Shunt series now - perioperative antibiotics - admit to 10k - Keep incision and dressings C/D/I. - Maintain adequate analgesia with goal RASS 0 - SBP 100-160 - ADAT - Utilize bowel regimen for goal 1 BM per 24 hours - SCDs while in bed Jason Pappas MD Neurosurgery PGY2 [id number] Jason Gonsales MD - 11/07/2015 8:08 PM PDTNeurosurgery Preoperative Note Planned procedure: R occipital VPS Date of procedure: 11/08/15 Booked? Yes Consented? Yes Marked? Yes NPO time: NPO Labs/Studies Hct: 44 Plt: 293 WBC: 11 Na: 140 K: 3.7 INR:1.0 Type and Screen obtained? Yes If over 50, EKG obtained this admission (Yes/No/NA)? No If over 50, CXR obtained this admission (Yes/No/NA)? No Medications If on Lovenox, stopped the day prior to surgery (Yes/No/NA)? n/a On ASA or other antiplatelet agent? No Jason Pappas MD Neurosurgery PGY2 Jeannine Rivas PA-C - 11/07/2015 9:21 AM PDT Neurosurgery Progress Note Hospital Day:1 Author; Jeannine Pelayo PA-C Attending Physician: Nathaniel Ybarra MD Interval Hx: - No acute events overnight. - Endorsing no complaints at this time. Last Vitals: BP 127/83 | Pulse 97 | Temp 36.6 C (97.9 F) | RR 16 | Ht 1.727 m (5' 7.99" ) | Wt 94.7 kg (208 lb 12.4 oz) | SpO2 97% | BMI 31.75 kg/(m^2) O2 Delivery Device: None (ro om air) (11/07/15 0745) 24 Hour Vital Min/Max: Systolic (24hrs), Av mmHg, Min:127 mmHg, Max:163 mmHgDiastolic (24hrs), Av mmHg, M in:61 mmHg, Max:93 mmHgPulse Min: 79 Max: 98 Temp Min: 36.5 C (97.7 F) Max: 36.8 C (98.2 F) Resp Min: 15 Max: 16 SpO2 Min: 95 % Max: 100 % Intake/Output Summary (Last 24 hours) at 11/07/15 0921 Last data filed at 11/07/15 0803 Gross per 24 hour Intake 0 ml Output 300 ml Net -300 ml Exam: Alert, oriented x3. Speech clear, fluent. Pupils equal. Blind bilaterally - baseline. EOMI. LT sensation intact. Face symmetric. T ongue midline. Sensation: LT sensation intact in all 4 extremities Motor: Moving all extremities well. Bilateral hands mildly contracted (R>L). BLE 5/5 throug hout. Psych: Appropriate and cooperative Extremities: No edema or deformity Labs: CBC with diff last 72 hours (or 3 results) Recent Labs 11/06/15 1556 11/07/15 0707 WBC 11.45* 10.92 HB 16.1* 15.1 HCT 46.7* 44.1 PLT 330 293 NEUTROPERC 69.7 -- LYMPHPERC 21.6 -- MONOPERC 7.1 -- BASOPERC 0.5 -- EOSPERC 0.8* -- Chemistries: Last 72 Hours (or 3 results): Recent Labs 11/06/15 1556 11/07/15 0707 NA 139 140 K 3.9 3.7 CL 105 108 BICARB 25 24 BUN 7 7 CR 0.64 0.63 GLU 82 85 CA 9.7 9.0 URINALYSIS Ref. Range 11/07/2015 08:07 WHITE CELLS Latest Ref Range: 0-5 /hpf 51 (H) RED CELLS Latest Ref Range: 0-3 /hpf 30 (H) NON-SQUAMOUS EPITH Latest Ref Range: None /hpf None SQUAMOUS EPITHELIAL Latest Ref Range: None /hpf Many (A) BACTERIA Latest Ref Range: None /hpf Few (A) MUCOUS Latest Ref Range: None /hpf None HYALINE CASTS Latest Ref Range: 0-2 /lpf 0 GRANULAR CASTS Latest Ref Range: 0-2 /lpf 0 CELLULAR CASTS Latest Ref Range: <=0 /lpf 0 AMORPHOUS CRYSTALS Latest Ref Range: None /hpf None CALCIUM OXALATE ITA Latest Ref Range: None /hpf None URIC ACID CRYSTALS Latest Ref Range: None /hpf None TRIPLE P04 CRYSTALS Latest Ref Range: None /hpf None YEAST (LAB) Latest Ref Range: None /hpf None TRICHOMONAS Latest Ref Range: None /hpf None Current Medications: acetaminophen (TYLENOL) tablet 325-650 mg, 325-650 mg, oral, Q6H PRN bisacodyl (DULCOLAX) suppository 10 mg, 10 mg, rectal, DAILY PRN lamoTRIgine (LAMICTAL) tablet 100 mg, 100 mg, oral, BID ondansetron (ZOFRAN) injection 4 mg, 4 mg, intravenous, Q12H FOLLOWED BY ondansetron (Z OFRAN) injection 4 mg, 4 mg, intravenous, Q12H PRN oxyCODONE (immediate release) (ROXICODONE) tablet 5-15 mg, 5-15 mg, oral, Q3H PRN polyethylene glycol (MIRALAX) powder 34 g, 34 g, oral, TID PRN senna-docusate (SENOKOT S) 8.6-50 mg 1 tablet, 1 tablet, oral, BID Imaging: EXAM: CT stereotactic head without contrast 11/07/15 HISTORY: Pre-shunt placement. COMPARISON: The MRI brain 10/26/2015, outside head CT 07/06/2015 TECHNIQUE: CT of the head without contrast. FINDINGS: Brain: Lateral and third ventricles are again seen be massively dilated, unchanged since 07/06/2015. Right greater than left posterior hemispheric cortical mantle thinning is redemonstrated. The septum pellucidum is very thin, not well visualized on the present study. Corpus callosum is also again noted to be thin. No evidence of hemorrhage, mass, or acute infarction. Soft tissues: Unremarkable Skull and skull base: No fractures or destructive lesions. Mastoids and middle ears are unremarkable. Face/orbits: Visualized portions are unremarkable. Paranasal sinuses: Visualized portions are unremarkable. IMPRESSION: Unchanged massive enlargement of the lateral and third ventricles. Attending Radiologists: MICHOACANO STEPHENS MD Author: MARK LO MD Impression: Rin Casas is a 45 y.o. 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 She is status post prior endoscopic third ventr iculostomy x3m. MRI demonstrating persistent ventriculomegaly, clinically presenting with pr ogressive decline for the last 6 months consistent with previous ETV failures. Plan: Neuro: OR tomorrow 11/07 for right occ VPS. Stereotactic CT completed this AM. Pain well con trolled with APAP and oxycodone. CV: HD stable. Some intermittent mild HTN, will continue to monitor. Pulm: IS, cough/deep breath GI/diet: Regular diet. NPO midnight. Bowel regimen. Anti-emetics PRN, patient prefers Benad ryl injection. : Voiding independently. Urinalysis and culture completed today due to new urinary incont inence. + mild UTI - will discuss with attending physician if Bactrim DX appropriate to star t pre-operatively. Musculoskeletal/skin: Routine decubitus ulcer prevention Endo: No active issues ID/Heme: Afebrile, no leukocytosis DVT ppx: SCDs while in bed Dispo: OR tomorrow for R occ VPS placement. Pre-operative labs completed. Consent to be com pleted. Jeannine Pelayo PA-C [place] [id number] [facility] [id number] documented in th is encounter Plan of Treatment +--------+---------+ + + + | Date | Type | Specialty | Care Team | Description | +--------+---------+ + + + | 11/24/ | Office | Neurological Surgery | Nolvia Delgado, | | | 2019 | Visit | | [address] | | | | | | [place], [place] | | | | | | [address] | | | | | | [phone] | | | | | | | | +--------+---------+ + + + + +------+--------+ + + | Name | Type | Priori | Associated Diagnoses | Order Schedule | | | | ty | | | + +------+--------+ + + | TYPE AND SCREEN | Lab | Urgent | | Lab Add Ons for 1 | | | | | | Occurrences starting | | | | | | 11/06/2015 until | | | | | | 11/06/2015 | + +------+--------+ + + documented as of this encounter Procedures + +--------+ + + + | Procedure Name | Priori | Date/Time | Associated Diagnosis | Comments | | | ty | | | | + +--------+ + + + | CT HEAD WO CONTRAST | Urgent | 11/09/2015 | | Results for this | | | | 8:42 AM | | procedure are in the | | | | PDT | | results section. | + +--------+ + + + | X-RAY SHUNT EVAL | Urgent | 11/08/2015 | | Results for this | | SKULL, CHEST AND ABD | | 8:07 PM | | procedure are in the | | 2 VIEWS | | PDT | | results section. | + +--------+ + + + | PROCEDURE NOTE | Routin | 11/08/2015 | | Results for this | | | e | 6:30 PM | | procedure are in the | | | | PDT | | results section. | + +--------+ + + + | OPERATION RECORD | | 11/08/2015 | | Results for this | | | | 1:20 PM | | procedure are in the | | | | PDT | | results section. | + +--------+ + + + | PROCEDURE NOTE | Routin | 11/08/2015 | | Results for this | | | e | 11:48 AM | | procedure are in the | | | | PDT | | results section. | + +--------+ + + + | FRAMELESS | Urgent | 11/08/2015 | Obstructive | | | STEREOTACTIC | | 9:52 AM | hydrocephalus | | | VENTRICULO-PERITONEA | Surgic | PDT | | | | L SHUNT PLACEMENT | al | | | | + +--------+ + + + | CARDIOLOGY | | 11/08/2015 | | Results for this | | | | 12:00 AM | | procedure are in the | | | | PDT | | results section. | + +--------+ + + + | CULTURE, URINE [facility] | Routin | 11/07/2015 | | Results for this | | | e | 8:07 AM | | procedure are in the | | | | PDT | | results section. | + +--------+ + + + | URINE, MICROSCOPIC | Routin | 11/07/2015 | | Results for this | | EXAM | e | 8:07 AM | | procedure are in the | | | | PDT | | results section. | + +--------+ + + + | CULTURE, URINE BACTI | Routin | 11/07/2015 | | Results for this | | | e | 8:07 AM | | procedure are in the | | | | PDT | | results section. | + +--------+ + + + | CT STEREOTACTIC HEAD | Routin | 11/07/2015 | | Results for this | | WO CONTRAST | e | 7:32 AM | | procedure are in the | | | | PDT | | results section. | + +--------+ + + + | CBC (HEMOGRAM) ONLY | Routin | 11/07/2015 | | Results for this | | | e | 7:07 AM | | procedure are in the | | | | PDT | | results section. | + +--------+ + + + | BASIC METABOLIC SET | Routin | 11/07/2015 | | Results for this | | (NA, K, CL, TCO2, | e | 7:07 AM | | procedure are in the | | BUN, CR, GLU, CA) | | PDT | | results section. | + +--------+ + + + | CBC ONLY | Routin | 11/07/2015 | | Results for this | | | e | 7:07 AM | | procedure are in the | | | | PDT | | results section. | + +--------+ + + + | X-RAY CHEST 1 VIEW | Urgent | 11/06/2015 | | Results for this | | | | 8:49 PM | | procedure are in the | | | | PDT | | results section. | + +--------+ + + + | RAINBOW HOLD TUBE - | Urgent | 11/06/2015 | | | | RED TOP | | 3:56 PM | | | | | | PDT | | | + +--------+ + + + | RAINBOW HOLD TUBE - | Urgent | 11/06/2015 | | | | PURPLE TOP | | 3:56 PM | | | | | | PDT | | | + +--------+ + + + | RAINBOW HOLD TUBE - | Urgent | 11/06/2015 | | | | GREEN TOP | | 3:56 PM | | | | | | PDT | | | + +--------+ + + + | RAINBOW HOLD TUBE - | Urgent | 11/06/2015 | | | | BLUE TOP | | 3:56 PM | | | | | | PDT | | | + +--------+ + + + | RAINBOW HOLD, CORE | Urgent | 11/06/2015 | | Results for this | | PANEL | | 3:56 PM | | procedure are in the | | | | PDT | | results section. | + +--------+ + + + | BLOOD BANK HOLD TUBE | Urgent | 11/06/2015 | | Results for this | | - DON | | 3:56 PM | | procedure are in the | | | | PDT | | results section. | | T PROCESS | | | | | + +--------+ + + + | CBC AND AUTO DIFF | Urgent | 11/06/2015 | | Results for this | | | | 3:56 PM | | procedure are in the | | | | PDT | | results section. | + +--------+ + + + | CBC, WITH | Urgent | 11/06/2015 | | Results for this | | DIFFERENTIAL | | 3:56 PM | | procedure are in the | | | | PDT | | results section. | + +--------+ + + + | BASIC METABOLIC SET | Urgent | 11/06/2015 | | Results for this | | (NA, K, CL, TCO2, | | 3:56 PM | | procedure are in the | | BUN, CR, GLU, CA) | | PDT | | results section. | + +--------+ + + + | COAGULOPATHY PANEL | Urgent | 11/06/2015 | | Results for this | | (INR,APTT,FIBRINOGEN | | 3:56 PM | | procedure are in the | | ) | | PDT | | results section. | + +--------+ + + + | ANTIBODY SCREEN | Routin | 11/06/2015 | | Results for this | | | e | 3:56 PM | | procedure are in the | | | | PDT | | results section. | + +--------+ + + + | ABO & RH TYPE | Routin | 11/06/2015 | | Results for this | | | e | 3:56 PM | | procedure are in the | | | | PDT | | results section. | + +--------+ + + + documented in this encounter Results CT HEAD WO CONTRAST (11/09/2015 8:42 AM PDT) + + + + + + | Component | Value | Ref Range | Performed | Pathologist | | | | | At | Signature | + + + + + + | CT HEAD WO | EXAM: CT head without | | | | | CONTRAST | contrast HISTORY: | | | | | | Evaluate ventricles. | | | | | | COMPARISON: 11/07/2015 | | | | | | TECHNIQUE: CT of the | | | | | | head without contrast. | | | | | | FINDINGS: Brain: New | | | | | | right parietal approach | | | | | | ventriculostomy catheter | | | | | | crosses | | | | | | midline,terminating | | | | | | within the left frontal | | | | | | horn. Ventricles remain | | | | | | massively | | | | | | dilated,minimally | | | | | | changed from prior | | | | | | study. There is right | | | | | | greater than left | | | | | | posteriorconvexity | | | | | | cortical thinning, as | | | | | | before. No intracranial | | | | | | hemorrhage, | | | | | | herniation,or CT | | | | | | evidence for acute | | | | | | cerebral ischemia. | | | | | | IMPRESSION: Interval | | | | | | placement of right | | | | | | parietal approach | | | | | | ventriculostomy | | | | | | catheter, withminimally | | | | | | changed ventricular | | | | | | size. Attending | | | | | | Radiologists: MICHOACANO Buckner | | | | | | KAT MDAuthor: MARK | | | | | | MD TERESITA I personally | | | | | | reviewed the images and, | | | | | | if necessary, edited | | | | | | the report. I agreewith | | | | | | the report as now | | | | | | presented. | | | | | | Final/Electronically | | | | | | signed / MICHOACANO Buckner | | | | | | KAT 11/09/2015 13:17 | | | | | | PM Pending final | | | | | | approval / MARK LO | | | | | | 11/09/2015 9:51 AM | | | | | | Preliminary / MARK | | | | | | TERESITA 11/09/2015 8:47 AM | | | | | | | | | | + + + + + + + + | Specimen | + + | | + + + +---------+ + + | Performing | Address | City/State/Zipcode | Phone Number | | Organization | | | | + +---------+ + + | [facility] | [facility] | | | | + +---------+ + + X-RAY SHUNT EVAL SKULL, CHEST AND ABD 2 VIEWS (11/08/2015 8:07 PM PDT) + + + + + + | Component | Value | Ref Range | Performed | Pathologist | | | | | At | Signature | + + + + + + | X-RAY SHUNT | EXAM: Shunt evaluation: | | | | | EVAL | AP and lateral views of | | | | | SKULL, | the skull, AP and | | | | | CHEST AND | lateral viewsof the | | | | | ABD 2 VIEWS | chest, and AP and | | | | | | lateral views of the | | | | | | abdomen COMPARISON EXAM: | | | | | | None HISTORY: | | | | | | Evaluate shunt. | | | | | | FINDINGS: Skull | | | | | | findings: A right | | | | | | shunt is in place, | | | | | | terminating in | | | | | | nearmidline. It | | | | | | extends down the right | | | | | | aspect of the head, in | | | | | | the soft tissues,into | | | | | | the right neck. Chest | | | | | | findings: The shunt | | | | | | extends down the right | | | | | | anterior chest wall into | | | | | | theabdomen. The lungs | | | | | | are clear. There are | | | | | | no focal areas of | | | | | | consolidation.There is | | | | | | no pleural effusion. | | | | | | The cardiomediastinal | | | | | | silhouette appears | | | | | | normal.Left-sided pacer | | | | | | is in place. Abdomen | | | | | | findings: The shunt | | | | | | extends from the right | | | | | | upper abdomen, | | | | | | terminatingin the mid | | | | | | abdomenanteriorly. The | | | | | | bowel gas pattern | | | | | | appears normal. There | | | | | | areno dilated loops of | | | | | | bowel or air fluid | | | | | | levels. No free air is | | | | | | identified. The shunt | | | | | | appears intact. There | | | | | | is no evidence of shunt | | | | | | kinking ordiscontinuity. | | | | | | IMPRESSION: No | | | | | | evidence of shunt | | | | | | kinking or | | | | | | discontinuity. Attending | | | | | | Radiologists: GERARDO | | | | | | SRUTHI FABIANuthor: GERARDO | | | | | | MD RUI I personally | | | | | | reviewed the images and, | | | | | | if necessary, edited | | | | | | the report. I agreewith | | | | | | the report as now | | | | | | presented. | | | | | | Final/Electronically | | | | | | signed / GERARDO FABIAN | | | | | | 11/09/2015 8:45 AM | | | | + + + + + + + + | Specimen | + + | | + + + +---------+ + + | Performing | Address | City/State/Zipcode | Phone Number | | Organization | | | | + +---------+ + + | [facility] | | | | [facility] | | | | + +---------+ + + PROCEDURE NOTE (11/08/2015 6:30 PM PDT)OPERATION RECORD (11/08/2015 1:20 PM PDT) + + | Transcriptions | + + | Nathaniel Ybarra MD - 11/08/2015 12:57 PM PDT Date of Service: 11/08/2015 Attending | | Surgeon: Nathaniel Ybarra MD Occupational Therapist Rehab Manager(s): Ronald Alarcon MD, PhD | | Preoperative Diagnosis: Hydrocephalus.Postoperative Diagnosis: | | Hydrocephalus.Procedure: Stealth-guided right occipital ventriculoperitoneal shunt with | | Strata valve set at 2.0.Anesthesia: General.Estimated Blood Loss: 100 | | mL.Complications: None apparent.Indications For Procedure: Ms. Rin Casas is a | | 45-year-old woman with a history of cerebral palsy, spastic quadriparesis, epilepsy and | | hydrocephalus who is status post 2 previous endoscopic third ventriculostomies by my | | partner, Nolvia Delgado MD. She presented to the emergency room with complaints of | | progressive decline including less control of her bilateral arms, as well as less | | control of her bladder. These symptoms are consistent with her previous ETV failure | | events. 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 I offered the patient a right occipital | | ventriculoperitoneal shunt. Informed consent was obtained from the patient, who agreed | | to proceed.Description Of Procedure: Ms. Casas was brought to the operating room, where | | a formal time-out was performed verifying the correct patient, procedure, and side. | | General anesthesia was induced and the patient was endotracheally intubated. Her bed | | was turned so as to provide us access to the right side of her body. A bump was placed | | under her right side and her head was placed in a Kang horseshoe head of operation and logistics. Her | | cranial incision was planned 3 fingerbreadths above the inion and 3 fingerbreadths over | | to the right of midline. The cranial incision was semilunar in shape. Her abdominal | | incision was prepared 3 fingerbreadths below the rib cage. These incisions were shaved. | | mycujoo navigation was used for stereotaxy. Her cranium was registered with the | | [employer] system. The operative area was then prepped and draped in the usual sterile | | fashion. Prior to starting the case, I assembled the shunt system which consisted of a | | Rickham reservoir attached to the Strata valve attached to the distal catheter. Each | | attachment was reinforced with silk ties. The abdominal incision was opened with a 10 | | blade scalpel and deeper dissection down to the external abdominal fascia was done with | | Bovie cauterization, as well as bluntly. The external abdominal fascia was incised. | | The abdominal muscles were split until the internal abdominal fascia was encountered. | | This was grasped with 2 forceps and serially grasped and released, grasped and released, | | to ensure there were no underlying abdominal organs adherent to the fascia. Then, this | | internal fascia was opened sharply. The peritoneum was readily visible and the opening | | into the peritoneum was kept open with a red rubber catheter. The cranial incision was | | also opened with a 10 blade scalpel, and deeper dissection down to the skull was done | | with Bovie cauterization and periosteal elevation. The incision was retracted open. A | | perforating drill was used to create a bur hole. This did require the use of a | | matchstick drill bit as well. When the dura was encountered, it was bipolar coagulated. | | At this point in time, the tunneler was used to tunnel from the cranial incision to | | the abdominal incision. Once there, a long cardiac tie was tied to the end of the | | tunneler. The tunneler was then withdrawn through the plastic sheath. The proximal end | | of the cardiac tie was tied to the distal end of the shunt system, and the cardiac tie | | was then pulled from the abdominal portion of the sheath which brought the entire distal | | end of the shunt system through the sheath. The sheath was then removed. At this | | point in time, the ventricular catheter was passed with the assistance of Stealth. We | | intended to pass the catheter so that it ended up in the left frontal horn and, thereby, | | was draining both lateral ventricles. There was a spontaneous flow of CSF from the | | ventricular catheter. The proximal end of the ventricular catheter was then attached to | | the Rickham reservoir. The attachment between the Rickham reservoir and the | | ventricular catheter was secured with a silk tie. Spontaneous flow of CSF was seen | | dripping from the distal end of the distal catheter. The distal catheter was then | | dunked into the peritoneum in the opening that was being held open with the red rubber | | catheter with the use of bayonetted forceps. A pursestring suture was placed around the | | distal catheter in the internal abdominal fascia. This wound was irrigated thoroughly, | | and both layers of abdominal fascia were closed with 3-0 Vicryl sutures. The dermis | | was also closed with 3-0 Vicryl sutures, and a subcuticular stitch. The abdominal wound | | was dressed with Mastisol, Steri-Strips and a sterile dressing. The cranial incision | | was thoroughly irrigated, then closed with interrupted 2-0 Vicryl sutures in the galea | | and a running Rapide suture in the skin. This wound was also dressed sterilely. The | | patient was returned supine to her stretcher and tolerated the procedure without | | apparent complication.MARIOLA Silva/SCOOBYD: 11/08/2015 11:49:29DT: 11/08/2015 | | 12:57:35Job #: [id number]: Nolvia Delgado MD | + + PROCEDURE NOTE (11/08/2015 11:48 AM PDT) + + + | Narrative | Performed At | + + + | Ronald Alarcon MD,PhD 11/08/2015 11:48 AM INPATIENT BRIEF | | | OPERATIVE NOTE Procedure Date: 11/08/2015 Author: Ronald | | | MD Dorian,PhD Attending Physician: Tate Assistants: Dorian | | | Prior to the beginning of the procedure, the team paused to verify | | | the patient | | | | | | s identity, the procedure to be performed (in accordance with the | | | consent,) and the correct side/site. The patient was positioned | | | appropriately. All relevant images and results were properly labeled | | | and displayed. We addressed antibiotic prophylaxis and fluids for | | | irrigation as applicable to this patient. Any safety precautions | | | were addressed. Preoperative Diagnosis: 1. Cerebral palsy 2. | | | Epilepsy 3. Obstructive hydrocephalus 4. Aqueductal stenosis | | | Postoperative Diagnosis: same Procedure Performed: 1. Placement | | | of R occipital CONFIGURATION MANAGEMENT CONSULTANT shunt 2. Programming of strata valve to 2.0 3. Use | | | of Axiem frameless stereotaxy Estimated Blood Loss: 100 | | | Fluids: 900 Specimens: none Complications: none Drains: | | | none Disposition: PACU 10K Findings: mini-open approach to | | | abdomen, axiem guided catheter placement to contralateral ventricle, | | | resorbable sutures Plan: CT head tomorrow, shunt series | | | | | + + + CARDIOLOGY (11/08/2015 12:00 AM PDT) + + + | Narrative | Performed At | + + + | | | + + + CULTURE, URINE [facility] (11/07/2015 8:07 AM PDT) + + + + + + | Component | Value | Ref Range | Performed | Pathologist | | | | | At | Signature | + + + + + + | URINE | Mixed Patrica, Likely | | [facility] | | | CULTURE | Contamination | | LABORATORY | | | [facility] | | | SERVICES, | | | | | | CORE | | + + + + + + + + | Specimen | + + | Urine - Urine | | (substance) | + + + + + | Narrative | Performed At | + + + | Multiple Organisms are present indicating probable contamination | [facility] | | or colonization not related to infection. Further work-up of these | LABORATORY | | organisms may result in misleading information due to low numbers | SERVICES, CORE | | and/or mixture of organisms present. Recollection is suggested if | | | clinically indicated. | | + + + + + + + + | Performing | Address | City/State/Zipcode | Phone Number | | Organization | | | | + + + + + | [facility] | [address] | [place] [address] | | | SERVICES, CORE | [address] | | | + + + + + URINE, MICROSCOPIC EXAM (11/07/2015 8:07 AM PDT) + + + + + + | Component | Value | Ref Range | Performed | Pathologist | | | | | At | Signature | + + + + + + | RED CELLS | 30 (H) | 0 - 3 /hpf | [facility] | | | | | | LABORATORY | | | | | | SERVICES, | | | | | | CORE | | + + + + + + | WHITE CELLS | 51 (H) | 0 - 5 /hpf | [facility] | | | | | | LABORATORY | | | | | | SERVICES, | | | | | | CORE | | + + + + + + | BACTERIA | Few (A) | None /hpf | [facility] | | | | | | LABORATORY | | | | | | SERVICES, | | | | | | CORE | | + + + + + + | YEAST (LAB) | None | None /hpf | [facility] | | | | | | LABORATORY | | | | | | SERVICES, | | | | | | CORE | | + + + + + + | SQUAMOUS | Many (A) | None /hpf | [facility] | | | EPITHELIAL | | | LABORATORY | | | | | | SERVICES, | | | | | | CORE | | + + + + + + | MUCOUS | None | None /hpf | [facility] | | | | | | LABORATORY | | | | | | SERVICES, | | | | | | CORE | | + + + + + + | TRICHOMONAS | None | None /hpf | [facility] | | | | | | LABORATORY | | | | | | SERVICES, | | | | | | CORE | | + + + + + + | NON-SQUAMOU | None | None /hpf | [facility] | | | S EPITH | | | LABORATORY | | | | | | SERVICES, | | | | | | CORE | | + + + + + + | HYALINE | 0 | 0 - 2 /lpf | [facility] | | | CASTS | | | LABORATORY | | | | | | SERVICES, | | | | | | CORE | | + + + + + + | GRANULAR | 0 | 0 - 2 /lpf | [facility] | | | CASTS | | | LABORATORY | | | | | | SERVICES, | | | | | | CORE | | + + + + + + | CELLULAR | 0 | <=0 /lpf | [facility] | | | CASTS | | | LABORATORY | | | | | | SERVICES, | | | | | | CORE | | + + + + + + | TRIPLE P04 | None | None /hpf | [facility] | | | CRYSTALS | | | LABORATORY | | | | | | SERVICES, | | | | | | CORE | | + + + + + + | CALCIUM | None | None /hpf | [facility] | | | OXALATE | | | LABORATORY | | | ITA | | | SERVICES, | | | | | | CORE | | + + + + + + | URIC ACID | None | None /hpf | [facility] | | | CRYSTALS | | | LABORATORY | | | | | | SERVICES, | | | | | | CORE | | + + + + + + | AMORPHOUS | None | None /hpf | [facility] | | | CRYSTALS | | | LABORATORY | | | | | | SERVICES, | | | | | | CORE | | + + + + + + + + | Specimen | + + | Urine - Urine | | (substance) | + + + + + + + | Performing | Address | City/State/Zipcode | Phone Number | | Organization | | | | + + + + + | [facility] | [address] | [place] [address] | | | SERVICES, CORE | [address] | | | + + + + + CT STEREOTACTIC HEAD WO CONTRAST (11/07/2015 7:32 AM PDT) + + + + + + | Component | Value | Ref Range | Performed | Pathologist | | | | | At | Signature | + + + + + + | CT | EXAM: CT stereotactic | | | | | STEREOTACTI | head without contrast | | | | | C HEAD W/O | HISTORY: Pre-shunt | | | | | CONTRAST | placement. COMPARISON: | | | | | | The MRI brain 10/26/2015, | | | | | | outside head CT | | | | | | 07/06/2015 TECHNIQUE: CT | | | | | | of the head without | | | | | | contrast. FINDINGS: | | | | | | Brain: Lateral and third | | | | | | ventricles are again | | | | | | seen be massively | | | | | | dilated,unchanged since | | | | | | 07/06/2015. Right greater | | | | | | than left posterior | | | | | | hemisphericcortical | | | | | | mantle thinning is | | | | | | redemonstrated. The | | | | | | septum pellucidum is | | | | | | very thin,not well | | | | | | visualized on the | | | | | | present study. Corpus | | | | | | callosum is also again | | | | | | notedto be thin. No | | | | | | evidence of hemorrhage, | | | | | | mass, or acute | | | | | | territorial infarction. | | | | | | Soft tissues: | | | | | | UnremarkableSkull and | | | | | | skull base: No fractures | | | | | | . Mastoids and middle | | | | | | ears are | | | | | | unremarkable.Face/orbits | | | | | | : Visualized portions | | | | | | are | | | | | | unremarkable.Paranasal | | | | | | sinuses: Visualized | | | | | | portions are | | | | | | unremarkable. | | | | | | IMPRESSION: Unchanged | | | | | | massive enlargement of | | | | | | the lateral and third | | | | | | ventricles. Attending | | | | | | Radiologists: MICHOACANO Buckner | | | | | | SRUTHI STEPHENSuthor: MARK | | | | | | MD TERESITA I personally | | | | | | reviewed the images and, | | | | | | if necessary, edited | | | | | | the report. I agreewith | | | | | | the report as now | | | | | | presented. | | | | | | Final/Electronically | | | | | | signed / MICHOACANO V | | | | | | PHALSILVIA 11/07/2015 12:42 | | | | | | PM Pending final | | | | | | approval / MARK LO | | | | | | 11/07/2015 8:43 AM | | | | | | Preliminary / MARK | | | | | | TERESITA 11/07/2015 8:27 AM | | | | | | [...] | | | + +---------+ + + CBC (HEMOGRAM) ONLY (11/07/2015 7:07 AM PDT) + +---------+ + + + | Component | Value | Ref Range | Performed | Pathologist | | | | | At | Signature | + +---------+ + + + | WHITE CELL | 10.92 | 4.40 - 11.00 | [facility] | | | COUNT | | K/cu mm | LABORATORY | | | | | | SERVICES, | | | | | | CORE | | + +---------+ + + + | RED CELL | 4.80 | 4.00 - 5.20 | [facility] | | | COUNT | | M/cu mm | LABORATORY | | | | | | SERVICES, | | | | | | CORE | | + +---------+ + + + | HEMOGLOBIN | 15.1 | 12.0 - 16.0 | [facility] | | | | | g/dL | LABORATORY | | | | | | SERVICES, | | | | | | CORE | | + +---------+ + + + | HEMATOCRIT | 44.1 | 36.0 - 46.0 % | [facility] | | | | | | LABORATORY | | | | | | SERVICES, | | | | | | CORE | | + +---------+ + + + | MCV | 91.9 | 80.0 - 96.0 fL | [facility] | | | | | | LABORATORY | | | | | | SERVICES, | | | | | | CORE | | + +---------+ + + + | MCHC | 34.2 | 33.0 - 35.5 | [facility] | | | | | g/dL | LABORATORY | | | | | | SERVICES, | | | | | | CORE | | + +---------+ + + + | RDW SD | 43.8 | 35.1 - 46.3 fL | [facility] | | | | | | LABORATORY | | | | | | SERVICES, | | | | | | CORE | | + +---------+ + + + | PLATELET | 293 | 150 - 400 K/cu | [facility] | | | COUNT | | mm | LABORATORY | | | | | | SERVICES, | | | | | | CORE | | + +---------+ + + + | MPV | 9.6 (L) | 9.7 - 12.3 fL | [facility] | | | | | | LABORATORY | | | | | | SERVICES, | | | | | | CORE | | + +---------+ + + + | NRBC% | 0.0 | 0.0 - 0.3 % | [facility] | | | | | | LABORATORY | | | | | | SERVICES, | | | | | | CORE | | + +---------+ + + + | NRBC# | 0.00 | 0.00 - 0.02 | [facility] | | | | | K/cu mm | LABORATORY | | | | | | SERVICES, | | | | | | CORE | | + +---------+ + + + + + | Specimen | + + | Blood - Blood | | (substance) | + + + + + + + | Performing | Address | City/State/Zipcode | Phone Number | | Organization | | | | + + + + + | [facility] | [address] | [place] [address] | | | SERVICES, CORE | [address] | | | + + + + + BASIC METABOLIC SET (NA, K, CL, TCO2, BUN, CR, GLU, CA) (11/07/2015 7:07 AM PDT) + +---------+ + + + | Component | Value | Ref Range | Performed | Pathologist | | | | | At | Signature | + +---------+ + + + | GLUCOSE, | 85 | 60 - 99 mg/dL | [facility] | | | PLASMA | | | LABORATORY | | | (LAB) | | | SERVICES, | | | | | | CORE | | + +---------+ + + + | BUN, PLASMA | 7 | 6 - 20 mg/dL | [facility] | | | (LAB) | | | LABORATORY | | | | | | SERVICES, | | | | | | CORE | | + +---------+ + + + | CREATININE | 0.63 | 0.60 - 1.10 | [facility] | | | PLASMA | | mg/dL | LABORATORY | | | (LAB) | | | SERVICES, | | | | | | CORE | | + +---------+ + + + | EGFR | >60 | >60 mL/min | [facility] | | | - | | | LABORATORY | | | GEORGIAN | | | SERVICES, | | | | | | CORE | | + +---------+ + + + | EGFR NON | >60 | >60 mL/min | [facility] | | | -MONTY | | | LABORATORY | | | RICAN | | | SERVICES, | | | | | | CORE | | + +---------+ + + + | SODIUM, | 140 | 136 - 145 | [facility] | | | PLASMA | | mmol/L | LABORATORY | | | (LAB) | | | SERVICES, | | | | | | CORE | | + +---------+ + + + | POTASSIUM, | 3.7 | 3.4 - 5.0 | [facility] | | | PLASMA | | mmol/L | LABORATORY | | | (LAB) | | | SERVICES, | | | | | | CORE | | + +---------+ + + + | CHLORIDE, | 108 | 97 - 108 mmol/L | [facility] | | | PLASMA | | | LABORATORY | | | (LAB) | | | SERVICES, | | | | | | CORE | | + +---------+ + + + | TOTAL CO2, | 24 | 21 - 32 mmol/L | [facility] | | | PLASMA | | | LABORATORY | | | (LAB) | | | SERVICES, | | | | | | CORE | | + +---------+ + + + | CALCIUM, | 9.0 | 8.6 - 10.2 | [facility] | | | PLASMA | | mg/dL | LABORATORY | | | (LAB) | | | SERVICES, | | | | | | CORE | | + +---------+ + + + | ANION GAP | 8 | mmol/L | [facility] | | | | | | LABORATORY | | | | | | SERVICES, | | | | | | CORE | | + +---------+ + + + | POTASSIUM | No Hemo | | [facility] | | | CMNT | | | LABORATORY | | | | | | SERVICES, | | | | | | CORE | | + +---------+ + + + + + | Specimen | + + | Blood - Blood | | (substance) | + + + + + | Narrative | Performed At | + + + | GFR is estimated using the MDRD equation recommended by the | [facility] | | National Kidney Disease Education Program. Estimated GFR | LABORATORY | | Interpretive Information: <60 mL/min/1.73 sq m | SERVICES, CORE | | Chronic Kidney Disease <15 mL/min/1.73 sq m | | | Kidney Failure Estimated GFR greater that 60 mL/min/1.73 sq m is of | | | limited clinical value. The MDRD equation is not valid in the | | | following situations: - Patients under 18 years of age - Severe | | | malnutrition or obesity - Vegetarian diet - Rapidly changing kidney | | | function | | + + + + + + + + | Performing | Address | City/State/Zipcode | Phone Number | | Organization | | | | + + + + + | [facility] | [address] | [place] [address] | | | SERVICES, CORE | [address] | | | + + + + + X-RAY CHEST 1 VIEW (11/06/2015 8:49 PM PDT) + + + + + + | Component | Value | Ref Range | Performed | Pathologist | | | | | At | Signature | + + + + + + | CHEST, 1 | EXAM: CHEST 1 VIEW | | | | | VIEW | 11/06/15 20:49:00 | | | | | | HISTORY: Fever. | | | | | | Infectious workup. | | | | | | COMPARISON: None. | | | | | | FINDINGS: AP chest | | | | | | radiograph obtained. | | | | | | Left-sided neural | | | | | | stimulator leads | | | | | | notedprojecting in the | | | | | | left neck. The lungs | | | | | | are clear. Cardiac and | | | | | | mediastinalcontours are | | | | | | normal. There is no | | | | | | pleural effusion. | | | | | | There is no | | | | | | pneumothorax. | | | | | | IMPRESSION: Clear lungs. | | | | | | Attending Radiologists: | | | | | | JUDD VO, | | | | | | MDAuthor: JUDD | | | | | | MD TAVO I personally | | | | | | reviewed the images | | | | | | and, if necessary, | | | | | | edited the report. I | | | | | | agreewith the report as | | | | | | now presented. | | | | | | Final/Electronically | | | | | | signed / JUDD | | | | | | TAVO 11/07/2015 8:03 | | | | | | AM | | | | + + + + + + + + | Specimen | + + | | + + + +---------+ + + | Performing | Address | City/State/Zipcode | Phone Number | | Organization | | | | + +---------+ + + | [facility]MENT OF | | | | | RADIOLOGY | | | | + +---------+ + + RAINBOW HOLD TUBE - RED TOP (11/06/2015 3:56 PM PDT) + + | Specimen | + + | Blood - Blood | | (substance) | + + + + + + + | Performing | Address | City/State/Zipcode | Phone Number | | Organization | | | | + + + + + | [facility] | [address] | [place] [address] | | | RYNE ARIAS | [address] | | | + + + + + RAINBOW HOLD TUBE - PURPLE TOP (11/06/2015 3:56 PM PDT) + + | Specimen | + + | Blood - Blood | | (substance) | + + + + + + + | Performing | Address | City/State/Zipcode | Phone Number | | Organization | | | | + + + + + | [facility] | [address] | [place] [address] | | | SERVICES, CORE | [address] | | | + + + + + RAINBOW HOLD TUBE - GREEN TOP (11/06/2015 3:56 PM PDT) + + | Specimen | + + | Blood - Blood | | (substance) | + + + + + + + | Performing | Address | City/State/Zipcode | Phone Number | | Organization | | | | + + + + + | [facility] | [address] [facility] [address] | [place] [address] | | | SERVICES, CORE | [address] | | | + + + + + RAINBOW HOLD TUBE - BLUE TOP (11/06/2015 3:56 PM PDT) + + | Specimen | + + | Blood - Blood | | (substance) | + + + + + + + | Performing | Address | City/State/Zipcode | Phone Number | | Organization | | | | + + + + + | [facility] | [address] | [place] [address] | | | SERVICES, CORE | [address] | | | + + + + + BLOOD BANK HOLD TUBE - DON T PROCESS (11/06/2015 3:56 PM PDT) + + + + + + | Component | Value | Ref Range | Performed | Pathologist | | | | | At | Signature | + + + + + + | SPECIMEN | Sample received with | | [facility] | | | COLLECTED, | adeq label/volume to | | LABORATORY | | | HELD | process | | SERVICES, | | | | | | TRANSFUSION | | | | | | MEDICINE | | + + + + + + + + | Specimen | + + | Blood - Blood | + + + + + + + | Performing | Address | City/State/Zipcode | Phone Number | | Organization | | | | + + + + + | [facility] | [address] | [place] [address] | | | SERVICES, | [address] | | | | TRANSFUSION MEDICINE | | | | + + + + + ANTIBODY SCREEN (11/06/2015 3:56 PM PDT) + + + + + + | Component | Value | Ref Range | Performed | Pathologist | | | | | At | Signature | + + + + + + | Antibody | Negative | | [facility] | | | Screen | | | LABORATORY | | | | | | SERVICES, | | | | | | TRANSFUSION | | | | | | MEDICINE | | + + + + + + + + | Specimen | + + | Blood - Blood | + + + + + + + | Performing | Address | City/State/Zipcode | Phone Number | | Organization | | | | + + + + + | [facility] | [address] | [place] [address] | | | SERVICES, | [address] | | | | TRANSFUSION MEDICINE | | | | + + + + + ABO & RH TYPE (11/06/2015 3:56 PM PDT) + + + + + + | Component | Value | Ref Range | Performed | Pathologist | | | | | At | Signature | + + + + + + | ABO Group | O | | [facility] | | | | | | LABORATORY | | | | | | SERVICES, | | | | | | TRANSFUSION | | | | | | MEDICINE | | + + + + + + | Rh Type | Positive | | [facility] | | | | | | LABORATORY | | | | | | SERVICES, | | | | | | TRANSFUSION | | | | | | MEDICINE | | + + + + + + + + | Specimen | + + | Blood - Blood | + + + + + + + | Performing | Address | City/State/Zipcode | Phone Number | | Organization | | | | + + + + + | [facility] | [address] | [place] [address] | | | SERVICES, | [address] | | | | TRANSFUSION MEDICINE | | | | + + + + + CBC AND AUTO DIFF (11/06/2015 3:56 PM PDT) + + + + + + | Component | Value | Ref Range | Performed | Pathologist | | | | | At | Signature | + + + + + + | WHITE CELL | 11.45 (H) | 4.40 - 11.00 | [facility] | | | COUNT | | K/cu mm | LABORATORY | | | | | | SERVICES, | | | | | | CORE | | + + + + + + | RED CELL | 5.01 | 4.00 - 5.20 | [facility] | | | COUNT | | M/cu mm | LABORATORY | | | | | | SERVICES, | | | | | | CORE | | + + + + + + | HEMOGLOBIN | 16.1 (H) | 12.0 - 16.0 | [facility] | | | | | g/dL | LABORATORY | | | | | | SERVICES, | | | | | | CORE | | + + + + + + | HEMATOCRIT | 46.7 (H) | 36.0 - 46.0 % | [facility] | | | | | | LABORATORY | | | | | | SERVICES, | | | | | | CORE | | + + + + + + | MCV | 93.2 | 80.0 - 96.0 fL | [facility] | | | | | | LABORATORY | | | | | | SERVICES, | | | | | | CORE | | + + + + + + | MCHC | 34.5 | 33.0 - 35.5 | [facility] | | | | | g/dL | LABORATORY | | | | | | SERVICES, | | | | | | CORE | | + + + + + + | RDW SD | 44.6 | 35.1 - 46.3 fL | [facility] | | | | | | LABORATORY | | | | | | SERVICES, | | | | | | CORE | | + + + + + + | PLATELET | 330 | 150 - 400 K/cu | [facility] | | | COUNT | | mm | LABORATORY | | | | | | SERVICES, | | | | | | CORE | | + + + + + + | MPV | 10.0 | 9.7 - 12.3 fL | [facility] | | | | | | LABORATORY | | | | | | SERVICES, | | | | | | CORE | | + + + + + + | NRBC% | 0.0 | 0.0 - 0.3 % | [facility] | | | | | | LABORATORY | | | | | | SERVICES, | | | | | | CORE | | + + + + + + | NRBC# | 0.00 | 0.00 - 0.02 | [facility] | | | | | K/cu mm | LABORATORY | | | | | | SERVICES, | | | | | | CORE | | + + + + + + | NEUTROPHIL | 69.7 | 50.0 - 70.0 % | [facility] | | | % | | | LABORATORY | | | | | | SERVICES, | | | | | | CORE | | + + + + + + | LYMPHOCYTE | 21.6 | 18.0 - 42.0 % | [facility] | | | % | | | LABORATORY | | | | | | SERVICES, | | | | | | CORE | | + + + + + + | MONOCYTE % | 7.1 | 3.5 - 9.0 % | [facility] | | | | | | LABORATORY | | | | | | SERVICES, | | | | | | CORE | | + + + + + + | EOS % | 0.8 (L) | 1.0 - 3.0 % | [facility] | | | | | | LABORATORY | | | | | | SERVICES, | | | | | | CORE | | + + + + + + | BASO % | 0.5 | 0.0 - 2.0 % | [facility] | | | | | | LABORATORY | | | | | | SERVICES, | | | | | | CORE | | + + + + + + | IG% | 0.3Comment: Immature | 0.0 - 0.6 % | [facility] | | | | Granulocytes (IG) | | LABORATORY | | | | include metamyelocytes, | | SERVICES, | | | | myelocytes and | | CORE | | | | promyelocytes. Bands | | | | | | are not included in the | | | | | | IG count. Bands are | | | | | | included in the | | | | | | neutrophil count. | | | | + + + + + + | NEUTROPHIL | 7.99 (H) | 1.80 - 7.70 | [facility] | | | # | | K/cu mm | LABORATORY | | | | | | SERVICES, | | | | | | CORE | | + + + + + + | LYMPHOCYTE | 2.47 | 1.00 - 4.80 | [facility] | | | # | | K/cu mm | LABORATORY | | | | | | SERVICES, | | | | | | CORE | | + + + + + + | MONOCYTE # | 0.81 | 0.10 - 0.90 | [facility] | | | | | K/cu mm | LABORATORY | | | | | | SERVICES, | | | | | | CORE | | + + + + + + | EOS # | 0.09 | 0.00 - 0.50 | [facility] | | | | | K/cu mm | LABORATORY | | | | | | SERVICES, | | | | | | CORE | | + + + + + + | BASO # | 0.06 | 0.00 - 0.10 | [facility] | | | | | K/cu mm | LABORATORY | | | | | | SERVICES, | | | | | | CORE | | + + + + + + | IG# | 0.03 | 0.00 - 0.03 | [facility] | | | | | K/cu mm | LABORATORY | | | | | | SERVICES, | | | | | | CORE | | + + + + + + + + | Specimen | + + | Blood - Blood | | (substance) | + + + + + | Narrative | Performed At | + + + | Immature Granulocytes (IG) include metamyelocytes, myelocytes | [facility] | | and promyelocytes. Bands are not included in the IG count. Bands are | LABORATORY | | included in the neutrophil count. | SERVICES, CORE | + + + + + + + + | Performing | Address | City/State/Zipcode | Phone Number | | Organization | | | | + + + + + | [facility] | [address] | [place] [address] | | | SERVICES, CORE | [address] | | | + + + + + COAGULOPATHY PANEL (INR,APTT,FIBRINOGEN) (11/06/2015 3:56 PM PDT) + +---------+ + + + | Component | Value | Ref Range | Performed | Pathologist | | | | | At | Signature | + +---------+ + + + | INR | 0.98 | 0.90 - 1.20 INR | [facility] | | | | | | LABORATORY | | | | | | SERVICES, | | | | | | CORE | | + +---------+ + + + | APTT | 29.8 | 26.0 - 36.0 | [facility] | | | | | seconds | LABORATORY | | | | | | SERVICES, | | | | | | CORE | | + +---------+ + + + | FIBRINOGEN | 550 (H) | 200 - 450 mg/dL | [facility] | | | LEVEL | | | LABORATORY | | | | | | SERVICES, | | | | | | CORE | | + +---------+ + + + + + | Specimen | + + | Blood - Blood | | (substance) | + + + + + | Narrative | Performed At | + + + | INR Therapeutic ranges for full anticoagulation: INR for | [facility] | | Venous Thromboembolism (2.0 - 3.0) INR INR for | LABORATORY | | most patients with mech. valves (2.5 - 3.5) INR APTT | SERVICES, CORE | | Therapeutic Range: (75 - 120) sec | | | Heparin levels of 0.35 - 0.7 U/mL | | + + + + + + + + | Performing | Address | City/State/Zipcode | Phone Number | | Organization | | | | + + + + + | [facility] | [address] | [place] [address] | | | SERVICES, CORE | [address] | | | + + + + + BASIC METABOLIC SET (NA, K, CL, TCO2, BUN, CR, GLU, CA) (11/06/2015 3:56 PM PDT) + +---------+ + + + | Component | Value | Ref Range | Performed | Pathologist | | | | | At | Signature | + +---------+ + + + | GLUCOSE, | 82 | 60 - 99 mg/dL | [facility] | | | PLASMA | | | LABORATORY | | | (LAB) | | | SERVICES, | | | | | | CORE | | + +---------+ + + + | BUN, PLASMA | 7 | 6 - 20 mg/dL | [facility] | | | (LAB) | | | LABORATORY | | | | | | SERVICES, | | | | | | CORE | | + +---------+ + + + | CREATININE | 0.64 | 0.60 - 1.10 | [facility] | | | PLASMA | | mg/dL | LABORATORY | | | (LAB) | | | SERVICES, | | | | | | CORE | | + +---------+ + + + | EGFR | >60 | >60 mL/min | [facility] | | | - | | | LABORATORY | | | GEORGIAN | | | SERVICES, | | | | | | CORE | | + +---------+ + + + | EGFR NON | >60 | >60 mL/min | [facility] | | | -MONTY | | | LABORATORY | | | RICAN | | | SERVICES, | | | | | | CORE | | + +---------+ + + + | SODIUM, | 139 | 136 - 145 | [facility] | | | PLASMA | | mmol/L | LABORATORY | | | (LAB) | | | SERVICES, | | | | | | CORE | | + +---------+ + + + | POTASSIUM, | 3.9 | 3.4 - 5.0 | [facility] | | | PLASMA | | mmol/L | LABORATORY | | | (LAB) | | | SERVICES, | | | | | | CORE | | + +---------+ + + + | CHLORIDE, | 105 | 97 - 108 mmol/L | [facility] | | | PLASMA | | | LABORATORY | | | (LAB) | | | SERVICES, | | | | | | CORE | | + +---------+ + + + | TOTAL CO2, | 25 | 21 - 32 mmol/L | [facility] | | | PLASMA | | | LABORATORY | | | (LAB) | | | SERVICES, | | | | | | CORE | | + +---------+ + + + | CALCIUM, | 9.7 | 8.6 - 10.2 | [facility] | | | PLASMA | | mg/dL | LABORATORY | | | (LAB) | | | SERVICES, | | | | | | CORE | | + +---------+ + + + | ANION GAP | 9 | mmol/L | [facility] | | | | | | LABORATORY | | | | | | SERVICES, | | | | | | CORE | | + +---------+ + + + | POTASSIUM | No Hemo | | [facility] | | | CMNT | | | LABORATORY | | | | | | SERVICES, | | | | | | CORE | | + +---------+ + + + + + | Specimen | + + | Blood - Blood | | (substance) | + + + + + | Narrative | Performed At | + + + | GFR is estimated using the MDRD equation recommended by the | [facility] | | National Kidney Disease Education Program. Estimated GFR | LABORATORY | | Interpretive Information: <60 mL/min/1.73 sq m | [facility], CORE | | Chronic Kidney Disease <15 mL/min/1.73 sq m | | | Kidney Failure Estimated GFR greater that 60 mL/min/1.73 sq m is of | | | limited clinical value. The MDRD equation is not valid in the | | | following situations: - Patients under 18 years of age - Severe | | | malnutrition or obesity - Vegetarian diet - Rapidly changing kidney | | | function | | + + + + + + + + | Performing | Address | City/State/Zipcode | Phone Number | | Organization | | | | + + + + + | [facility] | [address] | [place] [address] | | | RYNE ARIAS | [address] | | | + + + + + documented in this encounter Visit Diagnoses + + | Diagnosis | + + | Obstructive hydrocephalus (HCC) Obstructive hydrocephalus | + + documented in this encounter
--- OUTSIDE RECORDS SUMMARY | ~2019-10-25 | XMS | Encounter Summary ---
Demographics + + + | Address | [address] | | | [place] [address] | + + + | Home Phone | | + + + | Preferred Language | Unknown | + + + | Marital Status | Single | + + + | Yazdanism Affiliation | NRP | + + + | Race | White | + + + | Ethnic Group | Not or | + + + Author + + + | Author | [facility] | + + + | Organization | [facility] | + + + | Address | Unknown | + + + | Phone | Unavailable | + + + Support + + + + + | Name | Relationship | Address | Phone | + + + + + | Malina Nicole | ECON | [address] | | | | | [place] | | | | | [address] | | + + + + + | Scott Mcgarry ECON | Unknown | | + + + + + Care Team Providers + +------+ + | Care Glaze Supervisor Name | Role | Phone | + +------+ + | Patricia Stevens | PCP | | + +------+ + Reason for Referral Diagnostic Testing (Routine) +--------+--------+ + + + + | Status | Reason | Specialty | Diagnoses / | Referred By | Referred To | | | | | Procedures | Contact | Contact | +--------+--------+ + + + + | Closed | | Radiology | Diagnoses | Chang, | [facility] | | | | | Obstructive | Zulma E, | [address] | | | | | | [place] [address] | [place] | | | | | hydrocephalu | [address] | [facility] | | | | | s (HCC) | [place], [place] | Research | | | | | Procedures | [id number] | Center | | | | | MRI BRAIN WO | Phone: | [place], [place] | | | | | [address] | [phone] | [address] | | | | | [address] | Fax: | Phone: | | | | | [facility] | [phone] | [phone] | | | | | [facility] | | Fax: | | | | | | | [phone] | +--------+--------+ + + + + Reason for Visit Diagnostic Testing (Routine) +--------+--------+ + + + + | Status | Reason | Specialty | Diagnoses / | Referred By | Referred To | | | | | Procedures | Contact | Contact | +--------+--------+ + + + + | Closed | | Radiology | Diagnoses | Chang, | [facility] | | | | | Obstructive | Zulma E, | [address] | | | | | | [place] [address] | [facility] [place] | | | | | hydrocephalu | [address] | [facility] | | | | | s ([facility]) | [place], [place] | Research | | | | | Procedures | [id number] | Center | | | | | MRI BRAIN WO | Phone: | [place], [place] | | | | | [address] | [phone] | [address] | | | | | [address] | Fax: | Phone: | | | | | [facility] | [phone] | [phone] | | | | | [facility] | | Fax: | | | | | | | [phone] | +--------+--------+ + + + + Encounter Details +--------+ + + + + | Date | Type | Department | Care Team | Description | +--------+ + + + + | 08/05/ | Hospital | Diagnostic Imaging | | | | 2013 | Encounter | Services at [facility] | | | | | | [address] | | | | | | [place] | | | | | | [facility] Center | | | | | | [place], [place] | | | | | | [address] | | | | | | [phone] | | | +--------+ + + + + Social History + +-------+ [...] + + +---------+ + | Yes | | 0.0 | 3 glasses of beer | | [...] + + documented as of this encounter Medications at Time of Discharge + [...] documented as of this encounter Progress Notes Pamela Ling, ART - 08/05/2013 1:30 PM PDTAfter pt's MRI the VNS was placed to the follow ing original settings: Output Current (mA): 0 Signal frequency (Hz): 15 Pulse Width : 500 Signal On Time (Sec): 30 Signal Off Time (min): 5.0 Magnetic Current (mA): 1.0 Magnetic On Time (Sec): 60 Magnetic Pulse : 500 It was difficult to interrogate the device after the above changes where made due to a faul ty wand (battery issue) on the VNS machine in MRI. The patient wanted to hurry to her clini c appointment. Therefore, Arlene in the NeuroSurgery clinic was notified to interrogate the VNS device to verify that the settings are in fact the same as above. Pamela Espinosa RN - 0 08/05/2013 9:51 AM PDTT/C to [facility] clinic asking for VNS orders for the M RI today. Arlene got a hold of Dr. Delgado who agrees to order the VNS orders for the pt. Or ders placed. Pamela Espinosa RN - 08/05/2013 9:14 AM PDTDr. Kahlil Harris from [facility] was [facility] to get ord ers for the pt's VNS to be turned off/on today for the MRI. Dr. Harris states that he does n ot think the VNS is even turned on. He gave the order to: Program both pulse generator output current and magnet output current to 0 mA prior to the MRI procedure. After MRI test is completed, reprogram device to origi nal settings. I told Dr. Harris we would check the VNS anyway and return the settings back to the original settings after the MRI. Dr. Harris agrees with the plan. documented in this enc ounter Plan of Treatment +--------+---------+ + + + | Date | Type | Specialty | Care Team | Description | +--------+---------+ + + + | 11/24/ | Office | Neurological Surgery | Nolvia Delgado, | | | 2020 | Visit | | [address] | | | | | | [place], [place] | | | | | | [address] | | | | | | [phone] | | | | | | | | +--------+---------+ + + + + +---------+--------+ + + | Name | Type | Priori | Associated Diagnoses | Order Schedule | | | | ty | | | + +---------+--------+ + + | VAGUS NERVE | Imaging | Routin | | One Time for 1 | | STIMULATION | | e | | Occurrences starting | | INSTRUCTIONS FOR MRI | | | | 08/05/2013 until | | | | | | 08/05/2013 | + +---------+--------+ + + documented as of this encounter Procedures + +--------+ + + + | Procedure Name | Priori | Date/Time | Associated Diagnosis | Comments | | | ty | | | | + +--------+ + + + | MRI BRAIN WO AND | Routin | 08/05/2013 | Obstructive | Results for this | | CINE 3RD | e | 12:21 PM | hydrocephalus | procedure are in the | | [facility] | | PDT | | results section. | + +--------+ + + + documented in this encounter Results MRI BRAIN WO [facility] 3RD [facility] (08/05/2013 12:21 PM PDT) + + + + + + | Component | Value | Ref Range | Performed | Pathologist | | | | | At | Signature | + + + + + + | MRI BRAIN | EXAM: MRI brain without | | | | | WO CONTRAST | contrast. CSF cine | | | | | AND CINE | images were acquired. | | | | | 3RD | HISTORY: Hydrocephalus | | | | | [facility] | COMPARISON: MRI brain | | | | | DIANA | 07/16/2012 and 02/03/2012 | | | | | | TECHNIQUE: Multiplanar | | | | | | multi-sequence MRI of | | | | | | the brain without | | | | | | contrast. CSFcine images | | | | | | were acquired. | | | | | | FINDINGS: Brain:Again | | | | | | noted is massive | | | | | | enlargement of lateral | | | | | | ventricles (larger on | | | | | | the rightthan the left) | | | | | | and the third ventricle. | | | | | | There is associated | | | | | | extensive atrophyof | | | | | | overlying brain. The | | | | | | fourth ventricle remains | | | | | | decompressed. | | | | | | High-resolutionimages | | | | | | demonstrate | | | | | | stenosis/possible | | | | | | occlusion of the caudal | | | | | | aspect of thecerebral | | | | | | aqueduct, unchanged from | | | | | | prior. Again noted is | | | | | | abnormal caudal | | | | | | descentof the floor of | | | | | | the third ventricle, | | | | | | which contacts the | | | | | | dysmorphic sellarfloor, | | | | | | contacts the ventral | | | | | | surface of the distal | | | | | | basilar artery, and | | | | | | laterallydisplaces the | | | | | | diminutive bilateral | | | | | | optic nerves. Posterior | | | | | | left frontalapproach | | | | | | ventriculostomy tract | | | | | | similar to prior exam. | | | | | | Soft tissues and marrow: | | | | | | UnremarkableFace and | | | | | | orbits: Visualized | | | | | | portions are | | | | | | unremarkable Dynamic | | | | | | phase contrast images of | | | | | | cerebral spinal fluid | | | | | | flow demonstrate | | | | | | nodefinite flow in the | | | | | | fourth ventricle, third | | | | | | ventricle, lateral | | | | | | ventricles orcerebral | | | | | | aqueduct. Flowing CSF | | | | | | was noted around the | | | | | | imaged portions of | | | | | | thecervical spinal cord | | | | | | and and premedullary | | | | | | cistern. Dynamics of | | | | | | flow at theselocations | | | | | | is altered, as | | | | | | characterized by a | | | | | | shortened systolic phase | | | | | | andrelatively prolonged | | | | | | diastolic phase. No CSF | | | | | | jet evident. | | | | | | IMPRESSION: 1. 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 | | | | | | Please note the floor | | | | | | of the third ventricle | | | | | | contacts anapproximately | | | | | | 1.3 cm length of the | | | | | | basilar artery. 2. | | | | | | Altered CSF dynamics, as | | | | | | detailed above. | | | | | | Attending Radiologists: | | | | | | ESTELA MORA, | | | | | | MDAuthor: LLOYD | | | | | | MD CHEKO I have | | | | | | personally viewed this | | | | | | procedure/exam, reviewed | | | | | | this report, and | | | | | | madechanges to it where | | | | | | appropriate. | | | | | | Final/Electronically | | | | | | signed / ESTELA | | | | | | MORGAN 08/05/2013 15:22 | | | | | | PM Pending final | | | | | | approval / LLOYD | | | | | | CHEKO 08/05/2013 | | | | | | 15:13 PM Preliminary / | | | | | | LLOYD STILL | | | | | | 08/05/2013 13:42 PM | | | | + + + + + + + + | Specimen | + + | | + + + +---------+ + + | Performing | Address | City/State/Zipcode | Phone Number | | Organization | | | | + +---------+ + + | [facility] | | | | | RADIOLOGY | | | | + +---------+ + + documented in this encounter Visit Diagnoses + + | Diagnosis | + + | Obstructive hydrocephalus (HCC) Obstructive hydrocephalus | + + documented in this encounter"
--- OUTSIDE RECORDS SUMMARY | ~2019-10-25 | XMS | Encounter Summary ---
Demographics + + + | Address | [address] | | | [place] [address] | + + + | Home Phone | | + + + | Preferred Language | Unknown | + + + | Marital Status | Single | + + + | Orthodoxy Affiliation | NRP | + + + | Race | White | + + + | Ethnic Group | Not or | + + + Author + + + | Author | [facility] | + + + | Organization | [facility] | + + + | Address | Unknown | + + + | Phone | Unavailable | + + + Support + + + + + | Name | Relationship | Address | Phone | + + + + + | Malina Nicole | ECON | [address] | | | | | [place] | | | | | [address] | | + + + + + | Scott Nicole | ECON | Unknown | | + + + + + Care Team Providers + +------+ + | Care Carpet Yarn Winder Operator Name | Role | Phone | + +------+ + | Gabe Baird DO | PCP | | + +------+ + Reason for Visit + + + | Reason | Comments | + + + | Pre-operative | | | evaluation | | + + + Encounter Details +--------+ + + + + | Date | Type | Department | Care Team | Description | +--------+ + + + + | 04/13/ | Telephone-S | Preoperative | | Pre-operative | | 2020 | cheduled | Medicine Clinic at | | evaluation | | | | [facility] | | | | | | [address] | | | | | | [facility] | | | | | | and Healing, | | | | | | [address] | | | | | | [place], [place] | | | | | | [address] | | | | | | [phone] | | | +--------+ + + + [...] + + documented as of this encounter Patient Instructions Patient Instructions Tania Chiu RN - 04/13/2019 9:50 AM PSTFormatting of this note doreen ht be different from the original. PREOPERATIVE INSTRUCTIONS Surgery Check in Time: you will receive a call 1-3 business days before your surgery confi rming your exact arrival/check-in time for your surgery day. We know that planning for surg douglas can be stressful and involve a lot of family/friend/transportation coordination as well as hotel arrangements. The Preoperative Medicine Clinic does not have access to check in [facility], and we encourage you to contact your surgeon's office for any assistance planning aroun d a tentative arrival time. Empty stomach before surgery On the day BEFORE your surgery, drink plenty of fluids and stay well hydrated NOTHING to eat or drink after midnight the night before surgery. This includes water, coffee, candy, mints, gum. Medications Instructions On the evening before your surgery, take ALL your usual evening medications On the morning of surgery TAKE the following medications with a sip of water: BACLOFEN 10 MG TABLET LAMOTRIGINE 100 MG TABLET On the morning of surgery DO NOT TAKE the following medications: MULTIVITAMIN TABLET (THERAPEUTIC) Other medications not specifically mentioned are at your discretion as to taking or not taking on the morning of surgery. Unless otherwise directed by your surgeon, do not take any Aspirin, fish oil supplements , vitamin E or non-steroidal anti-inflammatory (NSAIDs i.e. Advil, Aleve, Ibuprofen) or herb al supplements 7 days prior to your surgery. These drugs may interfere with normal blood malka tting and may cause excessive bleeding and bruising during or after the surgery. If you need a pain medication for general purposes, use Tylenol as directed. OK to take it even on the morning of surgery, if needed. If you are in doubt about any medications that you are taking, please contact our office . Other Important Guidelines ? Do not shave the surgical area ? Do not smoke, drink alcohol or use recreational drugs for 24 hours before your surgery Watch for any change in your health condition. Let your surgeon know right away if you do not feel well--this includes calling if you think you are developing a "cold" in the days before your surgery. ? Do not wear makeup, perfume, lotions, deodorant, powder or hairspray. Do not wear any jewelry to the hospital. Wear loose, comfortable clothing. Leave all your valuables at home. Allow enough travel time so you re not late for your check in for surgery. ? Take a bath or shower and remember to shampoo your hair using your usual hair product bef ore your arrival at the hospital ? Please remember to brush your teeth the night before and the morning of your procedure. Preventing post op complications while you are in the hospital Use an incentive spirometer or peep breathe to keep your lungs working properly an d to help prevent respiratory complications. It helps you take long, deep breaths. Use it at least once every hour while you are awake. Leg and feet exercises will maintain good circulation and help prevent blood clots in yo ur legs. Sometimes your doctor will order sequential air compression stockings. Compressed air helps the circulation in your legs. Walking and moving will help stimulate normal circulation and deep breathing. Going Home Your surgical team will decide when you are medically ready to go home. If you are released to go home on the same day as your procedure/surgery please note the following: You will not be able to drive yourself A responsible adult MUST escort you home. You may not drive yourself Your responsible adult can drive you or they can accompany you in a taxi, ride share (oleary ch as Uber/Lyft), or public transportation. An Uber/Lyft/seasonal delivery driver does not count as the responsible adult who accompanies you. Certified Medical Transport can transport you after surgery as long as a competent adult is waiting for you on arrival at your destination Although not mandatory, it is highly recommended that a patient has a responsible person with you to provide overnight monitoring/support following discharge. It IS required that you have a competent person assist you and look after you on the st night after you have undergone regional blocks (72 hours for patients going home with reg ional block pump) If you stayed in the hospital after surgery, please discuss anticipated discharge time a nd plans with your inpatient team so that transportation plans and other going home arrangem ents can be coordinated If you have questions or concerns after you go home, call your doctor s office. If it is after office hours, call the [facility] spinning machine operator at [phone] and ask them to page him or h er. documented in this encounter Plan of Treatment +--------+---------+ + + + | Date | Type | Specialty | Care Team | Description | +--------+---------+ + + + | 11/24/ | Office | Neurological Surgery | Nolvia Delgado, | | | 2019 | Visit | | [address] | | | | | | [place], [place] | | | | | | [address] | | | | | | [phone] | | | | | | | | +--------+---------+ + + + documented as of this encounter Visit Diagnoses Not on filedocumented in this encounter
--- OUTSIDE RECORDS SUMMARY | ~2019-10-25 | XMS | Encounter Summary ---
Demographics + + + | Address | [address] | | | [place] [address] | + + + | Home Phone | | + + + | Preferred Language | Unknown | + + + | Marital Status | Single | + + + | Religion Affiliation | NRP | + + + | Race | White | + + + | Ethnic Group | Not or | + + + Author + + + | Author | [facility] | + + + | Organization | [facility] | + + + | Address | Unknown | + + + | Phone | Unavailable | + + + Support + + + + + | Name | Relationship | Address | Phone | + + + + + | Malina Nicole | ECON | [address] | | | | | [place] | | | | | [address] | | + + + + + | Scott Mcgarry ECON | Unknown | | + + + + + Care Team Providers + +------+ + | Care Operational Risk Manager Name | Role | Phone | + [...] Closed | | Radiology | Diagnoses | [facility], [facility] | | | | | | Nolvia Liang MD | [address] | | | | | Hydrocephalu | [address] | [facility] | | | | | s (HCC) | [address] | [address] [place] | | | | | Procedures | [place], [place] | Research | | | | | MRI BRAIN WO | [address] | Center | | | | | CONTRAST | Phone: | [place], [place] | | | | | | [phone] | [address] | | | | | | Fax: | Phone: | | | | | | [phone] | [phone] | | | | | | | Fax: | | | | | | | [phone] | +--------+--------+ + + + + Reason for Visit Diagnostic Testing (Routine) +--------+--------+ + + + + | Status | Reason | Specialty | Diagnoses / | Referred By | Referred To | | | | | Procedures | Contact | Contact | +--------+--------+ + + + + | Closed | | Radiology | Diagnoses | [facility], [facility] | | | | | | Nolvia Liang MD | [address] | | | | | Hydrocephalu | [address] | [place] | | | | | s (HCC) | Ave | [facility] | | | | | Procedures | [place], [place] | Research | | | | | MRI BRAIN WO | [address] | Center | | | | | CONTRAST | Phone: | [place], [place] | | | | | | [phone] | [address] | | | | | | Fax: | Phone: | | | | | | [phone] | [phone] | | | | | | | Fax: | | | | | | | [phone] | +--------+--------+ + + + + Encounter Details +--------+ + + + + | Date | Type | Department | Care Team | Description | +--------+ + + + + | 09/29/ | Hospital | Diagnostic Imaging | | | | 2014 | Encounter | Services at [facility] | | | | | | [address] | | | | | | [address] | | | | | | [facility] [place] | | | | | | [place], [place] | | | | | | [address] | | | | | | [phone] | | | +--------+ + + + [...] +---------+--------+ + documented as of this encounter Plan of Treatment +--------+---------+ + + + | Date | Type | Specialty | Care Team | Description | +--------+---------+ + + + | 11/24/ | Office | Neurological Surgery | DannyNolvia, | | | 2019 | Visit | | [address] | | | | | | [place], [place] | | | | | | [address] | | | | | | [phone] | | | | | | | | +--------+---------+ + + + documented as of this encounter Procedures + +--------+ + + + | Procedure Name | Priori | Date/Time | Associated Diagnosis | Comments | | | ty | | | | + +--------+ + + + | MRI BRAIN WO | Routin | 09/29/2014 | Hydrocephalus | Results for this | | CONTRAST | e | 1:09 PM | | procedure are in the | | | | PDT | | results section. | + +--------+ + + + documented in this encounter Results MRI BRAIN WO CONTRAST (09/29/2014 1:09 PM PDT) + + + + + + | Component | Value | Ref Range | Performed | Pathologist | | | | | At | Signature | + + + + + + | MR BRAIN WO | EXAM: MRI brain without | | | | | CONTRAST | contrast HISTORY: | | | | | | Recurrent hydrocephalus | | | | | | after previous | | | | | | endoscopic | | | | | | thirdventriculostomy. | | | | | | COMPARISON: CT head | | | | | | 09/14/2013, and MR brain | | | | | | 08/05/2013. TECHNIQUE: | | | | | | Multiplanar | | | | | | multi-sequence MRI of | | | | | | the brain without | | | | | | contrast. FINDINGS: | | | | | | Brain: The lateral and | | | | | | third ventricles remain | | | | | | stably enlarged. On the | | | | | | thin cutBFFE sequences, | | | | | | a possible fenestration | | | | | | in the floor the third | | | | | | ventricle isseen on | | | | | | sagittal image 48 and | | | | | | coronal image 36. CSF | | | | | | fluid in | | | | | | thesuprasellar/prepontin | | | | | | e cistern is increased | | | | | | in size compared to | | | | | | priorsuggesting possible | | | | | | loculation of this | | | | | | fluid. Evidence of prior | | | | | | left frontalapproach | | | | | | ventriculostomy catheter | | | | | | are again seen. No | | | | | | evidence of | | | | | | hemorrhage,mass, or | | | | | | acute infarction. Soft | | | | | | tissues and marrow: | | | | | | UnremarkableFace and | | | | | | orbits: Visualized | | | | | | portions are | | | | | | unremarkable IMPRESSION: | | | | | | Unchanged ventricular | | | | | | volumes with persistent | | | | | | enlargement of the third | | | | | | andlateral ventricles. 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 | | | | | | Increased size of the | | | | | | suprasellar/prepontine | | | | | | cistern fluid maysuggest | | | | | | loculation which could | | | | | | potentially cause | | | | | | outflow obstruction. | | | | | | Considercine sequence | | | | | | MRI to evaluate for CSF | | | | | | flow through this area. | | | | | | Attending Radiologists: | | | | | | LUIS A ARMENDARIZ, | | | | | | MDAuthor: ESTELA | | | | | | MD CRISSY I have | | | | | | personally viewed this | | | | | | procedure/exam, reviewed | | | | | | this report, and | | | | | | madechanges to it where | | | | | | appropriate. | | | | | | Final/Electronically | | | | | | signed / LUIS A | | | | | | MARCELLO 09/29/2014 15:47 | | | | | | PM Pending final | | | | | | approval / ESTELA | | | | | | CRISSY 09/29/2014 15:22 | | | | | | PM Preliminary / | | | | | | ESTELA WOODWARD | | | | | | 09/29/2014 13:54 PM | | | | + + [...] + | Diagnosis | + + | Hydrocephalus (HCC) Obstructive hydrocephalus | + + documented in this encounter"
--- OUTSIDE RECORDS SUMMARY | ~2019-10-25 | XMS | Encounter Summary ---
Demographics + + + | Address | [address] | | | [place] [address] | + + + | Home Phone | | + + + | Preferred Language | Unknown | + + + | Marital Status | Single | + + + | Islam Affiliation | NRP | + + + | Race | White | + + + | Ethnic Group | Not or | + + + Author + + + | Author | [facility] | + + + | Organization | [facility] | + + + | Address | Unknown | + + + | Phone | Unavailable | + + + Support + + + + + | Name | Relationship | Address | Phone | + + + + + | Malina Nicole | ECON | [address] | | | | | [place] | | | | | [address] | | + + + + + | Scott Nicole | ECON | Unknown | | + + + + + Care Team Providers + +------+ + | Care Press Assistant Name | Role | Phone | + +------+ + | Patricia Stevens | PCP | | + +------+ + Reason for Visit + + + | Reason | Comments | + + + | Weakness | | + + + | Other | SOLE CONDITIONER Shunt issue | + + + Encounter Details +--------+ + + + + | Date | Type | Department | Care Team | Description | +--------+ + + + + | 07/29/ | Emergency | [facility] | | | | 2016 | | Department [address] | | | | | | [facility] | | | | | | [facility] | | | | | | [place], [place] | | | | | | [address] | | | | | | [phone] | | | +--------+ + + + [...] [address] | | | | | | [place], [place] | | | | | | [address] | | | | | | [phone] | | | | | | | | +--------+---------+ + + + documented as of this encounter Visit Diagnoses Not on filedocumented in this encounter"
--- OUTSIDE RECORDS SUMMARY | ~2019-10-25 | XMS | Encounter Summary ---
Demographics + + + | Address | [address] | | | [place] [address] | + + + | Home Phone | | + + + | Preferred Language | Unknown | + + + | Marital Status | Single | + + + | Jainism Affiliation | NRP | + + + | Race | White | + + + | Ethnic Group | Not or | + + + Author + + + | Author | [facility] | + + + | Organization | [facility] | + + + | Address | Unknown | + + + | Phone | Unavailable | + + + Support + + + + + | Name | Relationship | Address | Phone | + + + + + | Malina Nicole | ECON | [address] | | | | | [place] | | | | | [address] | | + + + + + | Scott Mcgarry ECON | Unknown | | + + + + + Care Team Providers + +------+ + | Care Senior Quality Methods Specialist Name | Role | Phone | + +------+ + | Patricia Bowers | PCP | | + +------+ + Reason for Referral Diagnostic Testing (Routine) +--------+--------+ + + + + | Status | Reason | Specialty | Diagnoses / | Referred By | Referred To | | | | | Procedures | Contact | Contact | +--------+--------+ + + + + | Closed | | Radiology | Diagnoses | Tod, | [facility] | | | | | Spasticity | Carlos Humphries MD | [address] | | | | | Cerebral | [address] | [place] | | | | | ventriculome | [place] | Boris Tompkins | | | | | beth | Boris | Research | | | | | Procedures | [place], [place] | [place] | | | | | MRI BRAIN WO | [address] | [place], [place] | | | | | CONTRAST | Phone: | [phone] | | | | | | [phone] | Phone: | | | | | | Fax: | [phone] | | | | | | [phone] | Fax: | | | | | | | [phone] | +--------+--------+ + + + + Reason for Visit + + + | Reason | Comments | + + + | New patient | | | consultation | | + + + Consultation (Routine) +--------+ + + + + + | Status | Reason | Specialty | Diagnoses / | Referred By | Referred To | | | | | Procedures | Contact | Contact | +--------+ + + + + + | Closed | Specialty | Neurological | Diagnoses | Harris, | [facility] | | | Services | Surgery | Obstructive | Kahlil S, | General Ppv | | | Required | | | MD [address] | | | | | hydrocephalu | [facility] | [address] | | | | | s (HCC) | Street | Physician's | | | | | Spastic | [place], | Pavilion, | | | | | hemiplegia | [place] [address] | 2nd floor | | | | | affecting | Phone: | [place], [place] | | | | | dominant | [phone] | [address] | | | | | side (HCC) | Fax: | Phone: | | | | | INS: | [phone] | [phone] | | | | | Medicare/DMA | | Fax: | | | | | P | | [phone] | +--------+ + + + + + Encounter Details +--------+---------+ + + + | Date | Type | Department | Care Team | Description | +--------+---------+ + + + | 12/31/ | Office | Neurosurgery [address] | Nolvia Delgado, | Spasticity; Cerebral | | 2011 | Visit | [address] | MD [address] | ventriculomegaly | | | | Physician's | [place], [place] | | | | | Pavilion, 2nd floor | [address] | | | | | [place], [place] | [phone] | | | | | [address] | | | | | | [phone] | | | +--------+---------+ + + + [...] Comments | + + +---------+ + | Not Asked | | | | + + +---------+ + + + [...] + + + | Blood Pressure | - | - | | + + + + + | Pulse | - | - | | + + + + + | Temperature | 36.3 C (97.4 F) | 01/01/2012 8:18 AM | | | | | PDT [...] + + + + | Weight | - | - | | + + + + + | Height | - | - | | + + + + + | Body Mass Index | - | - | | + + + + + documented in this encounter Progress Notes Linda Zuniga LPN - 01/20/2012 10:57 AM PST Addended by: LINDA ZUNIGA LPN on: 2011 10:57 AM Modules accepted: Orders olvia Delgado MD - 01/01/2012 1:47 PM PDTI personally interviewed the patient, performed the pertinent pa rts of the physical examination and personally formulated the plan with the resident. I agr ee with the residents documentation and have documented any additions or exceptions. Carlos Hernandez MD - 01/01/2012 8:43 AM PDT History: Rin Casas comes to neurosurgery clinic today with her parents for evaluation of progressi ve right sided weakness and spasticity over the last several years. 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 Over the course of the last two years she has developed progressive weakness in the ri ght side of her body with progressive worsening of her spasticity on the right. In addition she and her parents states she has had decreasing sensation on the right side, especially in the hand and foot, so much so that her right foot has started turning in. In the last 4 mon s she has lost the ability to ambulate because of the right hemiparesis. She always has some congitive delay but they feel this is slightly worse in the last couple of years. The patient denies any headache or any pain at all. She was diagnosed with a seizure disorder several years ago and started on Lamotrigine. A V NS was placed on the left side many years ago in [place] but she had sleeping and breathing complications and this is now off. Because of the VNS she was unable to get an MRI. Current Outpatient Prescriptions Medication Sig baclofen 10 mg Oral tablet Take 10 mg by mouth three times daily. lamoTRIgine 100 mg Oral tablet Take 100 mg by mouth two times daily. lamoTRIgine 25 mg Oral tablet Take 25 mg by mouth once daily. MULTIVITAMIN ORAL Take by mouth. VITAMIN B COMPLEX ORAL Take by mouth. Allergies not on file Past Surgical History Procedure Date Vns implant 2000 Past Medical History Diagnosis Date Epilepsy, partial Cerebral palsy Spastic quadriparesis H/O hydrocephalus S/P placement of VNS (vagus nerve stimulation) device 2000 Seizures History Smoking status Never Smoker Smokeless tobacco Never Used History Alcohol Use: Not on file Review of Systems: Positive for weakness, nail changes in the right thumb, snoring, spasticity/weakness, tremo r/incoordination, anxieety/depression, heavy and irregular menstrual periods. Head is enlarged. General: No constitutional symptoms of fevers, fatigue, chills, weight loss or sweats. Eyes: No changes in vision, double vision, eye pain, eye irritation, discharge, blurred vi watson or light sensitivity. Ears, Nose and Throat: No hearing loss, ringing in the ears, ear discharge, earache, noseb tarun, nasal congestion, difficulty swallowing, hoarseness or sore throat. Respiratory: No shortness of breath, coughing up blood, excessive sputum, cough, chest dis comfort or wheezing. Musculoskeletal: No joint pain, swelling, stiffness, back pain, arthritis, muscle aches, m uscle cramps or loss of strength. Cardiovascular: No chest pain, skipping beats, lightheadedness, difficulty breathing uprig ht or lying down, fatigue, near fainting or fainting, palpitations, weight gain, edema, leg cramps. Gastrointestinal: No loss of appetite, excessive appetite, indigestion, vomiting, nausea, constipation, gas, abdominal pain, hemorrhoids, diarrhea, bloating, bloody stools or dark ta rry stools. Genitourinary: No urinary frequency, blood in urine, difficulty in urination, discharge, p ainful urination, incontinence, urinary urgency or genital sores. Neurologic: No unusual headaches, inability to speak, poor balance, numbness, tingling, tr emors, memory loss, disturbances in coordination or sensation of room spinning. Skin: No itching, rash, poor wound healing, night sweats, changes in skin color, dryness, flushing or suspicious lesions. Psychological: No abnormal anxiety, depression, thoughts of suicide or hallucinations. Heme/Lymphatic: No skin discoloration, abnormal bleeding or enlarged lymph nodes. Endocrine: No heat intolerance, cold intolerance, excessive hunger or excessive thirst. Allergic: No seasonal allergies, hives or rash, persistent infections or HIV exposure. (Medications, allergies, past surgical history, past medical history, social history, and r eview of systems were reviewed by me and if not recorded in Epic will be scanned into the stem using intake patient forms during this encounter.) Physical Exam: Temp (Src) 36.3 C (97.4 F) (Oral) Neurological exam: Alert, oriented X 3, fluent speech, and good historian. Sensation to touch in face is present and symmetrical. Faces symmetrical. Hearing grossl y intact. Tongue protrudes into midline. Palate elevates at midline. Good SCM and Trapezi us muscle function bilaterally. Restring tremor. Extremity exam: Right deltoid 4+/5 Right biceps 4-/5 Right triceps 4-/5 Right handgrip 4-/5 Right interossei 4-/5 Left deltoid 5/5 Left biceps 5/5 Left triceps 5/5 Left handgrip 5/5 Left interossei 5/5 Right HF 4+/5 Right KE 4-/5 Right KF 4-/5 Right DF 2/5 Right PF 2/5 Right EHL 3/5 Left HF 5/5 Left KE 5/5 Left KF 5/5 Left DF 5/5 Left PF 5/5 Left EHL 5/5 Reflexes: Right Biceps: 3/4 Right Triceps 3/4 Left Biceps 3/4 Left Triceps 3/4 Right Knee 3/4 Right Ankle 3/4 Left Knee 3/4 Left Ankle 3/4 Plantar response: toes going downward on left up on right Sensory exam in extremities: Decreased sensation to pinprick in right hand, but not forearm or arm. No sensory deficits in left upper extremity to light touch Decreased sensation to pinprick in right foot, but not calf or thigh. No sensory deficits in left lower extremity to light touch Patient able to stand with slight assist but unable to take steps. Imaging: CT head shows tri-ventriculomegaly with normal fourth ventricular. CT of the C-spine shows calcification of the ligamentum flavum. Assessment: Progressive right weakness, spasticity, and decreased sensation in the setting of ventricul omegaly and spastic cerebral palsy. Plan: This may have central cause such as syringomyelia although this could be related to progres watson of her normal spasticity state. 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 We will see them back to discuss procedures for spasticity if there is no anatomical abnormality. documented in this enc ounter Plan of Treatment +--------+---------+ + + + | Date | Type | Specialty | Care Team | Description | +--------+---------+ + + + | 11/24/ | Office | Neurological Surgery | Nolvia Delgado, | | | 2019 | Visit | | [address] | | | | | | [place], [place] | | | | | | [address] | | | | | | [phone] | | | | | | | | +--------+---------+ + + + documented as of this encounter Procedures + +--------+ + + + | Procedure Name | Priori | Date/Time | Associated Diagnosis | Comments | | | ty | | | | + +--------+ + + + | OUTSIDE RADIOLOGY - | | 01/01/2012 | | Results for this | | CT | | 12:00 AM | | procedure are in the | | | | PDT | | results section. | + +--------+ + + + documented in this encounter Results OUTSIDE RADIOLOGY - CT (01/01/2012 12:00 AM PDT) + + + | Narrative | Performed At | + + + | | | | | | + + + + + | Procedure Note | + + | Ebony Torrez - 12/27/2011 11:06 AM PDT | + + documented in this encounter Visit Diagnoses + + | Diagnosis | + + | Spasticity Abnormal involuntary movements | + + | Cerebral ventriculomegaly Other conditions of brain | + + documented in this encounter"
--- OUTSIDE RECORDS SUMMARY | ~2019-10-25 | XMS | Encounter Summary ---
Demographics + + + | Address | [address] | | | [place] [address] | + + + | Home Phone [...] Author + + + | Author | [facility] | + + + | Organization | [facility] | + + + | Address | Unknown | + + + | Phone | Unavailable | + + + Support + + + + + | Name | Relationship | Address | Phone | + + + + + | Malina Nicole | ECON | [address] | | | | | [place] | | | | | [address] | | + + + + + | Scott Mcgarry ECON | Unknown | | + + + + + Care Team Providers + +------+ + | Care Ip Attorney Name | Role | Phone | + [...] | s (HCC) | Ave | [address] | | | | | Procedures | [place], [place] | Research | | | | | MRI BRAIN WO | [address] | Center | | | | | CONTRAST | Phone: | [place], [place] | | | | | | [phone] | [address] | | | | | | Fax: | Phone: | | | | | | [phone] | [phone] | | | | | | | Fax: | | | | | | | [phone] | +--------+--------+ + + + + Reason for Visit + + + | Reason | Comments | + + + | Return Patient | | + + + Encounter Details +--------+---------+ + + + | Date | Type | Department | Care Team | Description | +--------+---------+ + + + | 09/29/ | Office | Neurosurgery at | Nolvia Delgado, | Hydrocephalus | | 2015 | Visit | [facility] [address] | MD [address] | (Primary Dx) | | | | Ave Center for | [place], [place] | | | | | Health and Healing, | [address] | | | | | [facility] | [phone] | | | | | floor [place], [place] | | | | | | [address] | | | | | | [phone] | | | +--------+---------+ + + + [...] + + + | Blood Pressure | 129/87 | 09/29/2014 10:43 AM | | | | | PDT | | + + + + + | Pulse | 80 | 09/29/2014 10:43 AM | | | | | PDT | | + + + + + | Temperature | 36.3 C (97.3 F) | 09/29/2014 10:43 AM | | | | | PDT [...] + documented in this encounter Progress Notes Nolvia Delgado MD - 10/03/2014 6:56 AM PDTFormatting of this note might be different fro m the original. Ronda returns today to clinic more than one year after repeat ETV. She started worsening sp asticity and weakness. Filed Vitals 09/29/2014 10:44 AM BP: 129/87 Pulse: 80 Temp: 36.3 C (97.3 F) TempSrc: Forehead PainSc: 0 - Zero Awake oriented x 3 PERRLA EOMI Face symmetric Tongue ML UE 4/5 with DTR 3/4 and spasticity LE 4-/5 AP: A 44 years old female with acqeuductal stenosis s/p ETV x 2 with worsening symptoms. ETV se em to work for about a year and then fails. Will obtain and MRI and call the patient family for counselling. docume nted in this encounter Plan of Treatment +--------+---------+ + + + | Date | Type | Specialty | Care Team | Description | +--------+---------+ + + + | 11/24/ | Office | Neurological Surgery | Nolvia Delgado, | | | 2019 | Visit | | [address] | | | | | | [place], [place] | | | | | | [address] | | | | | | [phone] | | | | | | | | +--------+---------+ + + + documented as of this encounter Results MRI BRAIN WO CONTRAST [...] | | + +---------+ + + | [facility] DEPARTMENT OF | | | | | RADIOLOGY | | | | + +---------+ + + documented in this encounter Visit Diagnoses + + | Diagnosis | + + | Hydrocephalus (HCC) - Primary Obstructive hydrocephalus | + + documented in this encounter"
--- OUTSIDE RECORDS SUMMARY | ~2019-10-25 | XMS | Encounter Summary ---
Demographics + + + | Address | [address] | | | [place] [address] | + + + | Home Phone | | + + + | Preferred Language | Unknown | + + + | Marital Status | Single | + + + | Buddhism Affiliation | NRP | + + + | Race | White | + + + | Ethnic Group | Not or | + + + Author + + + | Author | [facility] | + + + | Organization | [facility] | + + + | Address | Unknown | + + + | Phone | Unavailable | + + + Support + + + + + | Name | Relationship | Address | Phone | + + + + + | Malina Nicole | ECON | [address] | | | | | [place] | | | | | [address] | | + + + + + | Bill Corey | ECON | Unknown | | + + + + + Care Team Providers + +------+ + | Care Warble Saw Operator Name | Role | Phone | + +------+ + PCP | Unavailable | + +------+ + Reason for Visit + + + | Reason | Comments | + + + | Appointment | | + + + Encounter Details +--------+ + + + + | Date | Type | Department | Care Team | Description | +--------+ + + + + | 12/26/ | Abstract | Neurosurgery at | Danny, Nolvia Liang, | Appointment | | 2011 | | [facility] [address] | MD [address] | | | | | Ave [facility] | [place], [place] | | | | | Health and Healing, | [address] | | | | | [facility] | [phone] | | | | | floor [place], [place] | | | | | | [address] | | | | | | [phone] | | | +--------+ + + + + Social History + +-------+ +--------+------+ | Tobacco Use | Types | Packs/Day | Years | Date | | | | | Used | | + +-------+ +--------+------+ | Never Assessed | | | | | + +-------+ +--------+------+ + + + | Sex Assigned at [...] + + documented as of this encounter Roseann Bee - 12/27/2011 10:42 AM PDTEncounter for outside records. documented in this encou nter Plan of Treatment +--------+---------+ + + + | Date | Type | Specialty | Care Team | Description | +--------+---------+ + + + | 11/24/ | Office | Neurological Surgery | Nolvia Delgado, | | | 2020 | Visit | | [address] | | | | | | [place], [place] | | | | | | [address] | | | | | | [phone] | | | | | | | | +--------+---------+ + + + documented as of this encounter Visit Diagnoses Not on filedocumented in this encounter"
--- OUTSIDE RECORDS SUMMARY | ~2019-10-25 | XMS | Encounter Summary ---
Demographics + + + | Address | [address] | | | [place] [address] | + + + | Home Phone | | + + + | Preferred Language | Unknown | + + + | Marital Status | Single | + + + | Baptist Affiliation | NRP | + + + | Race | White | + + + | Ethnic Group | Not or | + + + Author + + + | Organization | Unknown | + + + | Address | Unknown | + + + | Phone | Unavailable | + + + Support + + + + + | Name | Relationship | Address | Phone | + + + + + | Malina Nicole | ECON | [address] | + | | | | [place] | | | | | [address] | | + + + + + | Scott Nicole | ECON | Unknown | + | + + + + + Care Team Providers + +------+ + | Care Undergraduate Advisor Name | Role | Phone | + +------+ + | Gabe Baird | PCP | | + +------+ + Encounter Details +--------+--------+ + + + | Date | Type | Department | Care Team | Description | +--------+--------+ + + + | 08/26/ | Travel | | | | | 2018 | | | | | +--------+--------+ + + + Social History + +-------+ [...] [address] | | | | | | [place], [place] | | | | | | [address] | | | | | | [phone] | | | | | | | | +--------+---------+ + + + documented as of this encounter Visit Diagnoses Not on filedocumented in this encounter"
--- OUTSIDE RECORDS SUMMARY | ~2019-10-25 | XMS | Encounter Summary ---
Demographics + + + | Address | [address] | | | [place] [address] | + + + | Home Phone | | + + + | Preferred Language | Unknown | + + + | Marital Status | Single | + + + | Druze Affiliation | NRP | + + + | Race | White | + + + | Ethnic Group | Not or | + + + Author + + + | Author | [facility] | + + + | Organization | [facility] | + + + | Address | Unknown | + + + | Phone | Unavailable | + + + Support + + + + + | Name | Relationship | Address | Phone | + + + + + | Malina Nicole | ECON | [address] | | | | | [place] | | | | | [address] | | + + + + + | Scott Nicole | ECON | Unknown | | + + + + + Care Team Providers + +------+ + | Care Shop Mechanic Helper Name | Role | Phone | + +------+ + | Gabe Baird DO | PCP | | + +------+ + Encounter Details +--------+ + + + + | Date | Type | Department | Care Team | Description | +--------+ + + + + | 09/20/ | Procedure | [address] | | | | 2017 | Pass | [facility] | | | | | | [facility] | | | | | | [facility] Admitting | | | | | | Desk Located on the | | | | | | 9th floor | | | | | | [place], [place] | | | | | | [address] | | | +--------+ + + + [...] [address] | | | | | | [place], [place] | | | | | | [address] | | | | | | [phone] | | | | | | | | +--------+---------+ + + + documented as of this encounter Visit Diagnoses Not on filedocumented in this encounter"
--- OUTSIDE RECORDS SUMMARY | ~2019-10-25 | XMS | Clinical Summary ---
Demographics + + + | Address | [address] [place] [address] | | | [place] [address] | + + + | Home Phone | | + + + | Preferred Language | Unknown | + + + | Marital Status | Single | + + + | Alevism Affiliation | Unknown | + + + | Race | Unknown | + + + | Ethnic Group | Unknown | + + + Author + + + | Author | [facility] | | | and [place] | + + + | Organization | [facility] | | | and [place] | + + + | Address | Unknown | + + + | Phone | Unavailable | + + + Support + + +---------+ + | Name | Relationship | Address | Phone | + + +---------+ + | Rimma Nicole | ECON | Unknown | | + + +---------+ + Care Team Providers + +------+ + | Care Signal System Testing Maintainer Name | Role | Phone | + +------+ + | Patricia Stevens PA-C | PCP | | + +------+ + Allergies Not on File Medications Not on file Active Problems Not on file Social History + +-------+ +--------+------+ | Tobacco [...] on file | | + + + Last Filed Vital Signs Not on file Plan of Treatment + + +-------+ + | Health Maintenance | Due Date | Last | Comments | | | | Done | | + + +-------+ + | Vaccine: | | | | | Dtap/Tdap/Td (1 - | 9 | | | | Tdap) | | | | + + +-------+ + | Cervical Cancer | | | | | Screening (Pap) | 0 | | | + + +-------+ + | Breast Cancer | | | | | Screening | 5 | | | + + +-------+ + | Vaccine: Zoster (1 | | | | | of 2) | 0 | | | + + +-------+ + | Vaccine: Influenza | | | | | (#1) | 0 | | | + + +-------+ + Results Not on filefrom Last 3 Months Advance Directives + + + + + | Type | Date Recorded | Patient | Explanation | | | | Reading Assistant | | + + + + + | Power of | | | | | Inside H[employer]icultural Specialty Grower | | | | + + + + + | Advance | | | | | Directive | | | | + + + + +"
--- OUTSIDE RECORDS SUMMARY | ~2019-10-25 | XMS | Encounter Summary ---
Demographics + + + | Address | [address] | | | [place] [address] | + + + | Home Phone | | + + + | Preferred Language | Unknown | + + + | Marital Status | Single | + + + | Evangelical Affiliation | NRP | + + + | Race | White | + + + | Ethnic Group | Not or | + + + Author + + + | Author | [facility] | + + + | Organization | [facility] | + + + | Address | Unknown | + + + | Phone | Unavailable | + + + Support + + + + + | Name | Relationship | Address | Phone | + + + + + | Malina Nicole | ECON | [address] | | | | | [place] | | | | | [address] | | + + + + + | Scott Nicole | ECON | Unknown | | + + + + + Care Team Providers + +------+ + | Care Gypsum Calciner Name | Role | Phone | + [...] Radiology | Diagnoses | Chang, | Rad Ct Scan | | | | | | Kristen E, | [facility] [address] | | | | | Hydrocephalu | [place] [address] | | | | | s (HCC) | [address] | [facility] | [facility] | | | Acute on | [place], [place] | Health and | | | | | chronic | [address] | Healing, | | | | | intracranial | Phone: | Building 1, | | | | | subdural | [phone] | 3rd Floor | | | | | hematoma | Fax: | [place], [place] | | | | | (HCC) | [phone] | [address] | | | | | Procedures | | Phone: | | | | | CT HEAD WO | | [phone] | | | | | CONTRAST [place] | | Fax: | | | | | CT | | [phone] | | | | | SCAN,HEAD/BR | | | | | | | AIN,W/O | | | | | | | CONTRAST | | | | | | | MATL | | | +--------+--------+ + + + + Encounter Details +--------+ + + + + | Date | Type | Department | Care Team | Description | +--------+ + + + + | 02/18/ | Telephone | Neurosurgery at | Nolvia Delgado, | | | 2017 | | [facility] [address] | MD [address] | | | | | Ave [facility] | [place], [place] | | | | | Health and Healing, | [address] | | | | | Building [address]th | [phone] | | | | | floor [place], [place] | | | | | | [address] | | | | | | [phone] | | | +--------+ + + + [...] | | 2019 | Visit | | [address] | | | | | | [place], [place] | | | | | | [address] | | | | | | [phone] | | | | | | | | +--------+---------+ + + + documented as of this encounter Results CT HEAD WO CONTRAST (07/09/2018 12:11 PM PDT) + + | Specimen | + + | | + + + + + | Narrative | Performed At | + + + | EXAM: CT HEAD WITHOUT CONTRAST HISTORY: hydrocephalus, | [facility] | | acqueductal stenosis, VPS, h/o SDH - eval for acute changes, | RADIOLOGY VOICE | | reventricle size COMPARISON: CT head 01/08/2018. TECHNIQUE: | RECOGNITION 2 | | CT of the head without intravenous contrast. FINDINGS: BRAIN: | | | Stable small extra-axial collection overlying the right parietal | | | convexity. Redemonstration of right posterior approach ventricular | | | catheter with stable tip position in the left lateral ventricle. | | | Stable ventricular size and morphology with prominent lateral and | | | third ventricles. No acute intracranial abnormality. No evidence of | | | hemorrhage, mass, or acute territorial infarction. SOFT TISSUES: | | | Unremarkable. SKULL AND SKULL BASE: Prior aime holes. Mastoids and | | | middle ears are unremarkable. FACE/ORBITS: Visualized portions are | | | unremarkable. PARANASAL SINUSES: Visualized portions are | | | unremarkable. IMPRESSION: No significant interval change | | | compared to 01/08/2018. I have personally reviewed the images and, | | | if necessary, edited the report. I agree with the report as now | | | presented. Final signature: Jacqueline Putnam MD 07/09/2018 | | | 12:50 PM Preliminary: Jacqueline Putnam MD Dictation | | | initiated: Jacqueline Putnam MD 07/09/2018 12:34 PM | | + + + + + | Procedure Note | + + | Service Account, Radiant Res In Interface - 07/09/2018 12:52 PM PDT EXAM: CT HEAD | | WITHOUT CONTRAST HISTORY: hydrocephalus, acqueductal stenosis, VPS, h/o SDH - eval for | | acute changes, reventricle size COMPARISON: CT head 01/08/2018. TECHNIQUE: CT of the | | head without intravenous contrast. FINDINGS: BRAIN: Stable small extra-axial collection | | overlying the right parietal convexity. Redemonstration of right posterior approach | | ventricular catheter with stable tip position in the left lateral ventricle. Stable | | ventricular size and morphology with prominent lateral and third ventricles. No acute | | intracranial abnormality. No evidence of hemorrhage, mass, or acute territorial | | infarction. SOFT TISSUES: Unremarkable.SKULL AND SKULL BASE: Prior aime holes. Mastoids | | and middle ears are unremarkable.FACE/ORBITS: Visualized portions are | | unremarkable.PARANASAL SINUSES: Visualized portions are unremarkable. IMPRESSION: No | | significant interval change compared to 01/08/2018. I have personally reviewed the | | images and, if necessary, edited the report. I agree with the report as now presented. | | Final signature: Jacqueline Putnam MD 07/09/2018 12:50 PM Preliminary: Jacqueline Buckner | | MD [place] Dictation initiated: Jacqueline Putnam MD 07/09/2018 12:34 PM | |PARANASAL SINUSES: Visualized portions are unremarkable. | | | |IMPRESSION: | | | |No significant interval change compared to 01/08/2018. | | | |I have personally reviewed the images and, if necessary, edited the report. I agree with th e report as now presented. | | | |Final signature: Jacqueline Putnam MD 07/09/2018 12:50 PM | |Preliminary: Jacqueline Putnam MD | |Dictation initiated: Jacqueline Putnam MD 07/09/2018 12:34 PM | + + + +---------+ + + | Performing | Address | City/State/Zipcode | Phone Number | | Organization | | | | + +---------+ + + | [facility] | | | | | VOICE RECOGNITION 2 | | | | + +---------+ + + documented in this encounter Visit Diagnoses + + | Diagnosis | + + | Hydrocephalus (HCC) - Primary Obstructive hydrocephalus | + + | Acute on chronic intracranial subdural hematoma (HCC) | + + documented in this encounter"
--- OUTSIDE RECORDS SUMMARY | ~2019-10-25 | XMS | Encounter Summary ---
Demographics + + + | Address | [address] | | | [place] [address] | + + + | Home Phone | | + + + | Preferred Language | Unknown | + + + | Marital Status | Single | + + + | Restorationism Affiliation | NRP | + + + | Race | White | + + + | Ethnic Group | Not or | + + + Author + + + | Author | [facility] | + + + | Organization | [facility] | + + + | Address | Unknown | + + + | Phone | Unavailable | + + + Support + + + + + | Name | Relationship | Address | Phone | + + + + + | Malina Nicole | ECON | [address] | | | | | [place] | | | | | [address] | | + + + + + | Scott iNcole | ECON | Unknown | | + + + + + Care Team Providers + +------+ + | Care Loan Review Analyst Name | Role | Phone | + +------+ + | Gabe Baird DO | PCP | | + +------+ + Reason for Visit AUTH/CERT +--------+--------+ + + + + | [...] | +--------+ + + + + | 04/23/ | Hospital | [facility] [address] | Nolvia Delgado, | | | 2019 | Encounter | [address] | [address] | | | | | [id number] | [place], [place] | | | | | [place], | [address] | | | | | [place] [address] | [phone] | | | | | [phone] | | | +--------+ + + + [...] + + + | Blood Pressure | 134/92 | 04/23/2019 3:37 PM | | | | | PST | | + + + + + | Pulse | 81 | 04/23/2019 3:37 PM | | | | | PST | | + + + + + | Temperature | 36.4 C (97.6 F) | 04/23/2019 3:37 PM | | | | | PST | | + + + + + | Respiratory Rate | 16 | 04/23/2019 3:37 PM | | | | | PST | | + + + + + | Oxygen Saturation | 94% | 04/23/2019 3:37 PM | | | | | PST | | + + + + + | Inhaled Oxygen | - | - | | | Concentration | | | | + + + + + | Weight | 108.9 kg (240 lb) | 04/23/2019 8:20 AM | | | | | PST | | + + + + + | Height | 172.7 cm (5' 8") | 04/23/2019 8:20 AM | | | | | PST | | + + + + + | Body Mass Index | 36.49 | 04/23/2019 8:20 AM | | | | | PST | | + + + + + documented in this encounter Functional Status + + + [...] + + documented as of this encounter Discharge Instructions Discharge Instr - AVS First Page Hema Ruiz MD - 04/23/2019 3:00 PM PSTSigns of a Wo und Infection: Redness and swelling outside the incision (like a sunburn) at the surgical site Foul smelling pus-like discharge Significantly increased tenderness at the surgical site Red streaks extending up an extremity Fever greater than 101.5 degrees and chills Generally feeling ill and weak combined with decreased appetite Please call the neurosurgery clinic at [phone] if you have one or more of the above sy mptoms. Discharge Instr - Activity Hema Ruiz MD - 04/23/2019 2:59 PM PSTActivity Instructio ns: No activity restrictions Discharge Instr - Diet Hema Ruiz MD - 04/23/2019 2:59 PM PSTDiet Type: Regular diet - There are no restrictions to your diet. You may eat or drink whatever you prefer, though healthy food choices are recommended. 20 2:59 PM PST Discharge Instr - Procedures Hema Ruiz MD - 04/23/2019 2:58 PM PSTReplacement of ve ntriculoperitoneal shunt valve with Certas valve at 4. Discharge Instr - Hospital Course Hema Ruiz MD - 04/23/2019 2:59 PM PSTYou were adm itted for a malfunctioning shunt valve. This was found to be not working during surgery, and was replaced with a different valve (Certas set to 4). Your procedure went well, without an y complications or concerns. Discharge Instr - Electronic Signature Hema Ruiz MD - 04/23/2019 3:10 PM PSTAfter V isit Summary Signature Electronically signed by: HEMA RUIZ MD, 04/23/2019 at 3:00 PM Additional Instructions Hema Ruiz MD - 04/23/2019 3:00 PM PSTWound Care: Keep incisions clean and dry. You have skin glue on your incisions, which will come off ove r time. The sutures are all absorbable. May gently wash incisions with soap and water. Do no t submerge incisions underwater until completely healed (at least 3 weeks). Opioid Pain Management Opioid pain medication has been started during this hospitalization. Anticipated duration of opioid treatment: 2 weeks Who will provide refills: No refill needed. Tapering plan: Take the oxycodone as needed. documented in this encounter Medications at Time of Discharge + + + +---------+ + + | Medication | Sig | Dispensed | Refills | Start | End Date | | | | | | Date | | + + + +---------+ + + | acetaminophen 325 | Take 2 tablets by | | 0 | 08/23/19 | | | mg oral tablet | mouth every six | | | 17 | | | | hours as needed | | | | | | | (pain). Not to | | | | | | | exceed 3250 mg of | | | | | | | acetaminophen from | | | | | | | all products per 24 | | | | | | | hour period. | | | | | + + + +---------+ + + | baclofen 10 mg | Take 1 tablet by | 30 | 3 | 04/16/19 | | | oral tablet | mouth once daily. | tablet | | 20 | | + + + +---------+ + + | lamoTRIgine 100 mg | Take 100 mg by mouth | | 0 | | | | Oral tablet | two times daily. | | | | | + + + +---------+ + + | multivitamin oral | Take 1 tablet by | | 0 | | | | tablet | mouth once daily. | | | | | + + + +---------+ + + documented as of this encounter Progress Notes Madie Moctezuma RN - 04/23/2019 6:47 PM PSTPt's mother said that she would need assistance loading pt and wheelchair into her wheelchair van. Pt's mother stated she received help un loading the pt earlier in the day at the Emergency Room bay by staff there. Per pt's mother, the caregiver that had helped load the pt into the van in the morning had been told to [facility] by [employer] [place] [employer] and could not be called to help load pt back into van. Public safety, transportation, lift team and the AOD were contacted to assist. I was n otified that there was no lift team staff to help and both public safety and transportation said that they could not assist due to liability. The pt's father was contacted and he, over the phone, walked both nurses through step by step how to load pt and wheelchair into van. The nurses, muyself and another nurse,followed each step and re-explained how pt was load in and secured. Both pt's father and mother-who was driving- verbally said they felt that the pt was loaded in safely and according to how they loaded her in the past. Both parents and t he pt stated they felt that the pt was safe to be transported home. The pt's mother was aske d several times if she felt confident in her ability to transport pt home; each time she lynne d she felt very sure that she would be able to drive home and expressed her eagerness to get on the road. Pt left with mom in van. documented in this encounter Plan of Treatment +--------+---------+ + + + | Date | Type | Specialty | Care Team | Description | +--------+---------+ + + + | 11/24/ | Office | Neurological Surgery | Nolvia Delgado, | | | 2019 | Visit | | [address] | | | | | | [place], [place] | | | | | | [address] | | | | | | [phone] | | | | | | | | +--------+---------+ + + + documented as of this encounter Procedures + +--------+ + + + | Procedure Name | Priori | Date/Time | Associated Diagnosis | Comments | | | ty | | | | + +--------+ + + + | PROCEDURE NOTE | Routin | 04/23/2019 | | Results for this | | | e | 7:15 PM | | procedure are in the | | | | PST | | results section. | + +--------+ + + + | REVISION OF | Electi | 04/23/2019 | External | | | VENTRICULOPERITONEAL | ve | 12:09 PM | hydrocephalus (HCC) | | | SHUNT | Surgic | PST | | | | | al | | | | + +--------+ + + + | CBC (HEMOGRAM) ONLY | Urgent | 04/23/2019 | | Results for this | | | | 9:20 AM | | procedure are in the | | | | PST | | results section. | + +--------+ + + + | INR | Urgent | 04/23/2019 | | Results for this | | | | 9:20 AM | | procedure are in the | | | | PST | | results section. | + +--------+ + + + | BASIC METABOLIC SET | Urgent | 04/23/2019 | | Results for this | | (NA, K, CL, TCO2, | | 9:20 AM | | procedure are in the | | BUN, CR, GLU, CA) | | PST | | results section. | + +--------+ + + + | CBC ONLY | Urgent | 04/23/2019 | | Results for this | | | | 9:20 AM | | procedure are in the | | | | PST | | results section. | + +--------+ + + + | ANTIBODY SCREEN | Urgent | 04/23/2019 | | Results for this | | | | 9:20 AM | | procedure are in the | | | | PST | | results section. | + +--------+ + + + | TYPE AND SCREEN | Urgent | 04/23/2019 | | Results for this | | | | 9:20 AM | | procedure are in the | | | | PST | | results section. | + +--------+ + + + | ABO & RH TYPE | Urgent | 04/23/2019 | | Results for this | | | | 9:20 AM | | procedure are in the | | | | PST | | results section. | + +--------+ + + + | CAPILLARY BLOOD | Routin | 04/23/2019 | Hydrocephalus, | Results for this | | GLUCOSE (NO CHG), | e | 9:15 AM | unspecified type | procedure are in the | | POC | | PST | (HCC) | results section. | + +--------+ + + + | INTRAPROCEDURE | Routin | 04/23/2019 | | Results for this | | IMAGING | e | 8:21 AM | | procedure are in the | | | | PST | | results section. | + +--------+ + + + | CARDIOLOGY | | 04/23/2019 | | Results for this | | | | 12:00 AM | | procedure are in the | | | | PST | | results section. | + +--------+ + + + documented in this encounter Results PROCEDURE NOTE (04/23/2019 7:15 PM PST)CBC (HEMOGRAM) ONLY (04/23/2019 9:20 AM PST) + + + + + + | Component | Value | Ref Range | Performed | Pathologist | | | | | At | Signature | + + + + + + | WHITE CELL | 11.71 (H) | 3.50 - 10.80 | [facility] | | | COUNT | | K/cu mm | LABORATORY | | | | | | SERVICES, | | | | | | CORE | | + + + + + + | RED CELL | 5.21 (H) | 4.00 - 5.20 | [facility] | [...] + + + + | HEMATOCRIT | 48.8 (H) | 36.0 - 46.0 % | [facility] | | | | | | LABORATORY | | | | | | SERVICES, | | | | | | CORE | | + + + + + + | MCV | 93.7 | 80.0 - 100.0 fL | [facility] | | | | | | LABORATORY | | | | | | SERVICES, | | | | | | CORE | | + + + + + + | MCHC | 33.0 | 32.0 - 36.0 | [facility] | | | | | g/dL | LABORATORY | | | | | | SERVICES, | | | | | | CORE | | + + + + + + | RDW SD | 44.3 | 35.1 - 46.3 fL | [facility] | | | | | | LABORATORY | | | | | | SERVICES, | | | | | | CORE | | + + + + + + | PLATELET | 352 | 150 - 400 K/cu | [facility] [...] + + + + + | [facility] | [address] | [place] [address] | | | JUANA, CORE | [address] | | | + + + + + ANTIBODY SCREEN (04/23/2019 9:20 AM PST) + + + + + + | [...] [facility] | [address] | [place] [address] | | | SERVICES, | [address] | | | | TRANSFUSION MEDICINE | | | | + + + + + ABO & RH TYPE (04/23/2019 9:20 AM PST) + + + + + + | [...] | + + + + + | [facility] | [address] | [place] [address] | | | SERVICES, | [address] | | | | TRANSFUSION MEDICINE | | | | + + + + + INR (04/23/2019 9:20 AM PST) + +-------+ + + + | Component | Value | Ref Range | Performed | Pathologist | | | | | At | Signature | + +-------+ + + + | INR | 0.99 | 0.90 - 1.20 INR | [facility] | | | | | | LABORATORY | | | | | | SERVICES, | | | | | | CORE | | + +-------+ + + + + + | Specimen | + + | Blood - Blood | | (substance) | + + + + + | Narrative | Performed At | + + + | INR Therapeutic ranges for full anticoagulation: INR for Venous | [facility] | | Thromboembolism (2.0 - 3.0) INR INR for most | LABORATORY | | patients with mech. valves (2.5 - 3.5) INR | SERVICES, CORE | + + + + + + + + | Performing | Address | City/State/Zipcode | Phone Number | | Organization | | | | + + + + + | [facility] | [address] [facility] [facility] | [place] [address] | | | SERVICES, CORE | [address] | | | + + + + + BASIC METABOLIC SET (NA, K, CL, TCO2, BUN, CR, GLU, CA) (04/23/2019 9:20 AM PST) + +---------+ + + + | Component | Value | Ref Range | Performed | Pathologist | | | | | At | Signature | + +---------+ + + + | GLUCOSE, | 89 | 70 - 99 mg/dL | [facility] | | | PLASMA | | | LABORATORY | | | (LAB) | | | SERVICES, | | | | | | CORE | | + +---------+ + + + | BUN, PLASMA | 12 | 6 - 20 mg/dL | [facility] | | | (LAB) | | | LABORATORY | | | | | | SERVICES, | | | | | | CORE | | + +---------+ + + + | CREATININE | 0.80 | 0.60 - 1.10 | [facility] | | | PLASMA | | mg/dL | LABORATORY | | | (LAB) | | | SERVICES, | | | | | | CORE | | + +---------+ + + + | EGFR | >60 | >60 mL/min | [facility] | | | - | | | LABORATORY | | | SURINAMESE | | | SERVICES, | | | | | | CORE | | + +---------+ + + + | EGFR NON | >60 | >60 mL/min | [facility] | | | -MONTY | | | LABORATORY | | | RICAN | | | SERVICES, | | | | | | CORE | | + +---------+ + + + | SODIUM, | 138 | 136 - 145 | [facility] | | | PLASMA | | mmol/L | LABORATORY | | | (LAB) | | | SERVICES, | | | | | | CORE | | + +---------+ + + + | POTASSIUM, | 4.0 | 3.4 - 5.0 | [facility] | | | PLASMA | | mmol/L | LABORATORY | | | (LAB) | | | SERVICES, | | | | | | CORE | | + +---------+ + + + | CHLORIDE, | 107 | 97 - 108 mmol/L | [facility] [...] + + + | ANION GAP | 7 | 4 - 11 mmol/L | [facility] | | | | [...] | + +---------+ + + + | BUN/CREATIN | 15 | 8 - 25 | [facility] | | | INE RATIO | | | LABORATORY | | | [...] using the MDRD equation recommended by the National | [facility] | | Kidney Disease Education Program. Estimated GFR Interpretive | LABORATORY | | Information: <60 mL/min/1.73 sq m Chronic Kidney | SERVICES, CORE | | Disease <15 mL/min/1.73 sq m Kidney Failure | | | Estimated GFR greater than 60 mL/min/1.73 sq m is of limited clinical | | | value. The MDRD equation is not valid in the following situations: | | | - Patients under 18 years of age - Severe malnutrition or obesity | | | - Vegetarian diet - Rapidly changing kidney function - Amputees, | | | paraplegics, or other muscle-wasting diseases | | + + + + + + + + | Performing | Address | City/State/Zipcode | Phone Number | | Organization | | | | + + + + + | [facility] | [address] | [place] [address] | | | SERVICES, CORE | [address] | | | + + + + + CAPILLARY BLOOD GLUCOSE (NO CHG), POC (04/23/2019 9:15 AM PST) + +-------+ + + + | Component | Value | Ref Range | Performed | Pathologist | | | | | At | Signature | + +-------+ + + + | BLOOD | 99 | 70 - 99 mg/dL | [facility] - | | | GLUCOSE, | | | [facility] | | | POC | | | [facility] | | | | | | OF CARE | | | | | | TESTS | | + +-------+ + + + + + | Specimen | + + | Blood | + + + + + + + | Performing | Address | City/State/Zipcode | Phone Number | | Organization | | | | + + + + + | [facility] | [address] | [place], [place] | | | [facility] POINT OF CARE | [address] | [address] | | | TESTS | | | | + + + + + INTRAPROCEDURE IMAGING (04/23/2019 8:21 AM PST) + + | Specimen | + + | | + + + + + | Narrative | Performed At | + + + | See admission or procedure notes for details of any intraprocedure | [facility] | | images obtained. | RADIOLOGY | + + + + +---------+ + + | Performing | Address | City/State/Zipcode | Phone Number | | Organization | | | | + +---------+ + + | [facility] | | | | + +---------+ + + CARDIOLOGY (04/23/2019 12:00 AM PST) + + + | Narrative | Performed At | + + + | | | + + + documented in this encounter Visit Diagnoses + + | Diagnosis | + + | Hydrocephalus, unspecified type (HCC) - Primary | + + documented in this encounter Administered Medications + +--------+---------+------+------+------+ | Medication Order | MAR | Action | Dose | Rate | Site | | | Action | Date | | | | + +--------+---------+------+------+------+ + +---+ | fentaNYL (SUBLIMAZE) injection | | | 25-50 mcg 25-50 mcg, | | | intravenous, POSTPROCEDURE PRN, 8 | | | doses, Starting 04/23/19 at | | | 1339, Until 04/24/19 at 0246, | | | severe pain while in Phase I | | | Recovery | | + +---+ | | | + +---+ | HYDROmorphone (DILAUDID) | | | injection 0.2-0.5 mg 0.2-0.5 mg, | | | intravenous, POSTPROCEDURE PRN, | | | Starting Fri04/23/19 at 1339, | | | Until 04/24/19 at 0246, | | | moderate pain while in Phase I | | | Recovery, if unable to take PO | | + +---+ | | | + +---+ | lactated ringers (LR) bolus 500 | | | mL 500 mL, intravenous, | | | POSTPROCEDURE PRN, 1 dose, | | | Starting 04/23/19 at 1339, | | | Until 04/24/19 at 0246, | | | nausea/vomiting due to | | | dehydration | | + +---+ | | | + +---+ | lactated ringers (LR) bolus 500 | | | mL 500 mL, intravenous, | | | POSTPROCEDURE PRN, 1 dose, | | | Starting 04/23/19 at 1339, | | | Until 04/24/19 at 0246, | | | systolic blood pressure less than | | | 90 mmHg. 1st line | | + +---+ | | | + +---+ + +-------+ +--------+---+---+ | lamoTRIgine (LAMICTAL) tablet | Given | 04/23/19 | 100 mg | | | | 100 mg 100 mg, oral, ONCE, 1 | | 20 12:03 | | | | | dose, Fri04/23/19 at 1215 | | PM PST | | | | + +-------+ +--------+---+---+ + +---+ | | | + +---+ | lidocaine PF (XYLOCAINE MPF) 10 | | | mg/mL (1 %) injection | | | subcutaneous, PREPROCEDURE PRN, | | | Starting Fri04/23/19 at 0821, | | | Until 04/24/19 at 0246, IV | | | start | | + +---+ | | | + +---+ | naloxone (NARCAN) injection | | | intravenous, POSTPROCEDURE PRN, | | | Starting Fri04/23/19 at 1338, | | | Until 04/24/19 at 0246, | | | hypopnea | | + +---+ | | | + +---+ | ondansetron (ZOFRAN) injection | | | 4 mg 4 mg, intravenous, | | | POSTPROCEDURE PRN, 1 dose, | | | Starting 04/23/19 at 1339, | | | Until 04/24/19 at 0246, | | | nausea/vomiting, 2nd line | | + +---+ | | | + +---+ | promethazine (PHENERGAN) | | | injection 12.5 mg 12.5 mg, | | | intravenous, POSTPROCEDURE PRN, 2 | | | doses, Starting 04/23/19 at | | | 1339, Until 04/24/19 at 0246, | | | nausea/vomiting, 1st line | | + +---+ | | | + +---+ + +---------+ + + +---+ | sodium chloride (NS) 0.9 % | New Bag | 04/23/19 | 10 mL/hr | 10 mL/hr | | | infusion 10 mL/hr, intravenous, | | 20 9:21 | | | | | PROCEDURE CONTINUOUS, Starting | | AM PST | | | | | 04/23/19 at 0830, Until Sat | | | | | | | 04/24/19 at 0246 | | | | | | + +---------+ + + +---+ +---+---+ | | | +---+---+ documented in this encounter
--- OUTSIDE RECORDS SUMMARY | ~2019-10-25 | XMS | Encounter Summary ---
Demographics + + + | Address | [address] | | | [place] [address] | + + + | Home Phone | | + + + | Preferred Language | Unknown | + + + | Marital Status | Single | + + + | Mandaen Affiliation | NRP | + + + | Race | White | + + + | Ethnic Group | Not or | + + + Author + + + | Author | [facility] | + + + | Organization | [facility] | + + + | Address | Unknown | + + + | Phone | Unavailable | + + + Support + + + + + | Name | Relationship | Address | Phone | + + + + + | Malina Nicole | ECON | [phone] | | | | | [place] | | | | | [address] | | + + + + + | Scott Mcgarry ECON | Unknown | | + + + + + Care Team Providers + +------+ + | Care Observation Assistant Name | Role | Phone | [...] | +--------+ + + + + | 02/07/ | Anesthesia | 6A Intra Op 3181 | Aden Smith, | | | 2014 | Event | [address] | | | | | | [facility] | | | | | | Hospital Admitting | | | | | | Desk Located on the | | | | | | 9th floor | | | | | | [place], [place] | | | | | | [address] | | | +--------+ + + + + Anesthesia Record + + + + + | Procedure Name | Responsible | Anesthesia Start | Anesthesia Stop Time | | | Anesthesiologist | Time | | + + + + + | left ENDOSCOPIC | Aden Smith MD | 02/07/15 1142 | 02/07/15 1325 | | THIRD | | | | | VENTRICULOSTOMY | | | | | (Left Head) | | | | + + + + + +----+---+ + + | Da | T | Event | Comment | | te | i | | | | | m | | | | | e | | | +----+---+ + + | 11 | 1 | Eq Check | Anesthesia machine checked Equipment verified | | /2 | 1 | | | | 4/ | 3 | | | | 20 | 1 | | | | 15 | | | | +----+---+ + + | | 1 | | | | | 1 | | | | | 4 | | | | | 2 | | | +----+---+ + + | | 1 | Pt. Check | Prior to anesthesia start, pt. Identified, examined, chart | | | 1 | | reviewed, PARQ held, anesthetic plan made or approved by | | | 4 | | attending anesthesiologist. NPO status confirmed as appropriate | | | 2 | | for procedure Preoperative evaluation: unchanged | +----+---+ + + | | 1 | An Start | | | | 1 | | | | | 4 | | | | | 2 | | | +----+---+ + + | | 1 | An Start | | | | 1 | Data | | | | 4 | | | | | 5 | | | +----+---+ + + | | 1 | Vitals | Monitors applied Vital signs checked Patient ready for anesthesia | | | 1 | Checked | | | | 5 | | | | | 1 | | | +----+---+ + + | | 1 | Std. Airway | | | | 1 | Mgt. | | | | 5 | | | | | 6 | | | +----+---+ + + | | 1 | Ready | | | | 1 | | | | | 5 | | | | | 9 | | | +----+---+ + + | | 1 | Abx | | | | 2 | Administere | | | | 1 | d | | | | 2 | | | +----+---+ + + | | 1 | AN | PEEP 20 [id number] X 5 MIN | | | 2 | Recruitment | | | | 1 | Breath | | | | 5 | | | +----+---+ + + | | 1 | Local | | | | 2 | Anesthetic | | | | 1 | by Surgeon | | | | 6 | | | +----+---+ + + | | 1 | Timeout | | | | 2 | | | | | 2 | | | | | 2 | | | +----+---+ + + | | 1 | Incision | | | | 2 | | | | | 3 | | | | | 1 | | | +----+---+ + + | | 1 | Surgery end | | | | 3 | | | | | 1 | | | | | 3 | | | +----+---+ + + | | 1 | An Extubate | Neuromuscular function Intact. Pharynx suctioned. Patient obeys | | | 3 | | commands. Adequate pulmonary mechanics. | | | 2 | | | | | 0 | | | +----+---+ + + | | 1 | an stop | | | | 3 | data | | | | 2 | | | | | 0 | | | +----+---+ + + | | 1 | Anesthesia | | | | 3 | End | | | | 2 | | | | | 5 | | | +----+---+ + + +------+ | Meds | +------+ + + + | Name | Total | + + + | fentaNYL | 400 mcg | + + + | lidocaine 2% | 100 mg | + + + | propofol | 300 mg | + + + | rocuronium | 55 mg | + + + | ondansetron | 4 mg | + + + | glycopyrrolate | 0.6 mg | + + + | neostigmine | 5 mg | + + + | ceFAZolin (ANCEF) injection 1 g | 2 g | + + + | ePHEDrine | 5 mg | + + + | dexamethasone | 4 mg | + + + | NaCl 0.9 % solution | 1,000 mL | + + + | LR | 0 mL | + + + + + | Name | + + | Insp Sevo | + + | Et Sevo | + + + + | No blood administrations on file. | + + +--------+ + + + | Type | Details | Placement | Removal | +--------+ + + + | RETIRE | 02/03/12; 1030; lower, medial; | 02/03/12 1030 by | 11/08/15 1210 by | | D - | spine- lumbar; puncture; | Norma Romero RN | Kim Zavala RN | | Wound | 11/08/15; 1210 | | | +--------+ + + + | Incisi | 02/07/15; Left; head- frontal; | 02/07/15 0000 by | 11/08/15 1210 by | | on | 11/08/15; 1210 | Yu Ambriz RN | Kim Zavala RN | +--------+ + + + | Periph | 02/07/15; Right; Hand; 20 g; | 02/07/15 0000 by | 02/08/15 0900 by | | eral | 02/08/15; 0900; Discharge | Jennie Orr RN | Verenice Gonzalez RN | | IV | | | | +--------+ + + + | Urethr | 02/07/15; Kamari; 16 Fr.; | 02/07/15 0000 by | 02/08/15 0410 by | | al | 02/08/15; 0410; Per order | Verenice Gonzalez RN | Ronda Johnson RN | | Cathet | | | | | er | | | | +--------+ + + + | Periph | 02/07/15; 1003; Right; Forearm; | 02/07/15 1003 by | 02/08/15 0900 by | | eral | 22 g; Positive; 02/08/15; 0900; | Kanwal Jones, | Verenice Gonzalez RN | | IV | Discharge | RN | | +--------+ + + + documented in this encounter Social [...] [address] | | | | | | [place], [place] | | | | | | [address] | | | | | | [phone] | | | | | | | | +--------+---------+ + + + documented as of this encounter Visit Diagnoses Not on filedocumented in this encounter Administered Medications + +--------+ +------+------+------+ | Medication Order | MAR | Action | Dose | Rate | Site | | | Action | Date | | | | + +--------+ +------+------+------+ | ceFAZolin (ANCEF) injection 1 g | Given | 02/08/20 | 2 g | | | | 1 g, intravenous, PREPROCEDURE | | 15 12:12 | | | | | ONCE, 1 dose, Starting Tue | | PM PST | | | | | 02/07/15 at 0856, Until Tue | | | | | | | 02/07/15 at 1212 | | | | | | + +--------+ +------+------+------+ +---+---+ | | | +---+---+ + +-------+ +------+---+---+ | dexamethasone (DECADRON) | Given | 02/08/20 | 4 mg | | | | injection intravenous, | | 15 12:26 | | | | | INTRAPROCEDURE PRN, Starting Tue | | PM PST | | | | | 02/07/15 at 1226, Until Tue | | | | | | | 02/07/15 at 1320 | | | | | | + +-------+ +------+---+---+ +---+---+ | | | +---+---+ + +-------+ +------+---+---+ | ePHEDrine injection | Given | 02/08/20 | 5 mg | | | | intravenous, INTRAPROCEDURE PRN, | | 15 12:12 | | | | | Starting 02/07/15 at 1212, | | PM PST | | | | | Until 02/07/15 at 1320 | | | | | | + +-------+ +------+---+---+ +---+---+ | | | +---+---+ + +-------+ +--------+---+---+ | fentaNYL citrate (PF) | Given | 02/08/20 | 50 mcg | | | | (SUBLIMAZE) injection | | 15 1:06 | | | | | INTRAPROCEDURE PRN, Starting Tue | | PM PST | | | | | 02/07/15 at 1152, Until Tue | | | | | | | 02/07/15 at 1320, sedation | | | | | | + +-------+ +--------+---+---+ +-------+ +---------+---+---+ | Given | 02/08/20 | 50 mcg | | | | | 15 12:49 | | | | | | PM PST | | | | +-------+ +---------+---+---+ | Given | 02/08/20 | 100 mcg | | | | | 15 12:04 | | | | | | PM PST | | | | +-------+ +---------+---+---+ +---+---+ | | | +---+---+ + +-------+ +--------+---+---+ | glycopyrrolate (RJ) | Given | 02/08/20 | 0.6 mg | | | | injection INTRAPROCEDURE PRN, | | 15 12:57 | | | | | Starting Fri02/07/15 at 1257, | | PM PST | | | | | Until Fri02/07/15 at 1320 | | | | | | + +-------+ +--------+---+---+ +---+---+ | | | +---+---+ + +---------+ +---+---+---+ | lactated ringers IV | New Bag | 02/08/20 | | | | | INTRAPROCEDURE CONTINUOUS PRN, | | 15 12:48 | | | | | Starting 02/07/15 at 1248, | | PM PST | | | | | Until 02/07/15 at 1320 | | | | | | + +---------+ +---+---+---+ +---+---+ | | | +---+---+ + +-------+ +--------+---+---+ | lidocaine PF (XYLOCAINE MPF) 20 | Given | 02/08/20 | 100 mg | | | | mg/mL (2 %) injection | | 15 11:52 | | | | | INTRAPROCEDURE PRN, Starting Tue | | AM PST | | | | | 02/07/15 at 1152, Until Tue | | | | | | | 02/07/15 at 1320 | | | | | | + +-------+ +--------+---+---+ +---+---+ | | | +---+---+ + +---------+ +---+---+---+ | NaCl 0.9 % solution 10 mL/hr, | New Bag | 02/08/20 | | | | | intravenous, PROCEDURE | | 15 11:42 | | | | | CONTINUOUS, Starting 02/07/15 | | AM PST | | | | | at 0900, Until Tu02/07/15 at | | | | | | | 1400 | | | | | | + +---------+ +---+---+---+ +---+---+ | | | +---+---+ + +-------+ +------+---+---+ | neostigmine (PROSTIGMIN) | Given | 02/08/20 | 5 mg | | | | injection intravenous, | | 15 12:57 | | | | | INTRAPROCEDURE PRN, Starting Tue | | PM PST | | | | | 02/07/15 at 1257, Until Tue | | | | | | | 02/07/15 at 1320 | | | | | | + +-------+ +------+---+---+ +---+---+ | | | +---+---+ + +-------+ +------+---+---+ | ondansetron (ZOFRAN) injection | Given | 02/08/20 | 4 mg | | | | INTRAPROCEDURE PRN, Starting Tue | | 15 12:57 | | | | | 02/07/15 at 1257, Until Tue | | PM PST | | | | | 02/07/15 at 1320 | | | | | | + +-------+ +------+---+---+ +---+---+ | | | +---+---+ + +-------+ +-------+---+---+ | propofol INTRAPROCEDURE PRN, | Given | 02/08/20 | 50 mg | | | | Starting 02/07/15 at 1156, | | 15 1:06 | | | | | Until 02/07/15 at 1320 | | PM PST | | | | + +-------+ +-------+---+---+ +-------+ +--------+---+---+ | Given | 02/08/20 | 70 mg | | | | | 15 12:47 | | | | | | PM PST | | | | +-------+ +--------+---+---+ | Given | 02/08/20 | 180 mg | | | | | 15 11:56 | | | | | | AM PST | | | | +-------+ +--------+---+---+ +---+---+ | | | +---+---+ + +-------+ +-------+---+---+ | rocuronium (ZEMURON) injection | Given | 02/08/20 | 55 mg | | | | INTRAPROCEDURE PRN, Starting Tue | | 15 11:56 | | | | | 02/07/15 at 1156, Until Tue | | AM PST | | | | | 02/07/15 at 1320, Neuromuscular | | | | | | | block | | | | | | + +-------+ +-------+---+---+ +---+---+ | | | +---+---+ documented in this encounter"
--- OUTSIDE RECORDS SUMMARY | ~2019-10-25 | XMS | Encounter Summary ---
Demographics + + + | Address | [address] | | | [place] [address] | + + + | Home Phone | | + + + | Preferred Language | Unknown | + + + | Marital Status | Single | + + + | Zoroastrian Affiliation | NRP | + + + [...] [place] | | | | | [address] | | + + + + + | Scott Mcgarry ECON | Unknown | | + + + + + Care Team Providers + +------+ + | Care Environmental Services Specialist Name | Role | Phone | + +------+ + | Patricia Stevens | PCP | | + +------+ + Reason for Referral Consult to [place] (Routine) +--------+--------+ + + + + | Status | Reason | Specialty | Diagnoses / | Referred By | Referred To | | | | | Procedures | Contact | Contact | +--------+--------+ + + + + | Closed | | Neurological | Diagnoses | Inez, | Danny, | | | | Surgery | | Ada Apple, | Nolvia Liang MD | | | | | Nontraumatic | ,PhD [address] | | | | | subdural | [address] | [address] | | | | | hemorrhage, | [facility] | [place], [place] | | | | | unspecified | Rd | [address] | | | | | Procedures | [place], [place] | Phone: | | | | | REQUEST TO | [address] | [phone] | | | | | SURGERY | Phone: | Fax: | | | | | [facility] [facility] INFORMATION CLERK | [phone] | [phone] | | | | | [place] | Fax: | | | | | | EVAC | [phone] | | | | | | SUBDUR/EXTRA | | | | | | | HEMATOMA | | | +--------+--------+ + + + + Diagnostic Testing (Routine) +--------+--------+ + + + + | Status | Reason | Specialty | Diagnoses / | Referred By | Referred To | | | | | Procedures | Contact | Contact | +--------+--------+ + + + + | Closed | | Radiology | Diagnoses | Danny, | Rad Ct Scan | | | | | Acute on | Nolvia Liang MD | [facility] [address] | | | | | chronic | [address] | | | | | intracranial | Ave | Center for | | | | | subdural | [place], [place] | Health and | | | | | hematoma | [address] | Healing, | | | | | (HCC) | Phone: | Building [address], | | | | | Procedures | [phone] | 3rd Floor | | | | | CT HEAD WO | Fax: | [place], [place] | | | | | CONTRAST [place] | [phone] | [address] | | | | | CT | | Phone: | | | | | SCAN,HEAD/BR | | [phone] | | | | | AIN,W/O | | Fax: | | | | | CONTRAST | | [phone] | | | | | MATL | | | +--------+--------+ + + + + Reason for Visit + + + | Reason | Comments | + + + | Return Patient | | + + + Consultation (Routine) +--------+--------+ + + + + | Status | Reason | Specialty | Diagnoses / | Referred By | Referred To | | | | | Procedures | Contact | Contact | +--------+--------+ + + + + | Closed | | Neurological | Diagnoses | Inez, | Danny, | | | | Surgery | Obstructive | Ada Apple, | Nolvia Liang MD | | | | | | ,PhD [address] | [address] | | | | | hydrocephalu | [facility] | [place] | | | | | s (HCC) | [facility] | [place], [place] | | | | | Procedures | Rd | [address] | | | | | CONSULT TO | [place], [place] | Phone: | | | | | NEUROSURGERY | [address] | [phone] | | | | | DE NEW | Phone: | Fax: | | | | | PATIENT | [phone] | [phone] | | | | | LEVEL V DE | Fax: | | | | | | EST PATIENT | [phone] | | | | | | LEVEL V | | | +--------+--------+ + + + + Encounter Details +--------+---------+ + + + | Date | Type | Department | Care Team | Description | +--------+---------+ + + + | 09/12/ | Office | Neurosurgery at | Nolvia Delgado, | Acute on chronic | | 2017 | Visit | [facility] [address] | MD [address] | intracranial | | | | Ave Center for | [place], [place] | subdural hematoma | | | | Health and Healing, | [address] | ([facility]) (Primary Dx) | | | | Building | [phone] | | | | | floor [place], [place] | | | | | | [address] | | | | | | [phone] | | | +--------+---------+ + + + [...] + + + | Blood Pressure | 113/55 | 09/12/2016 12:50 PM | | | | | PDT | | + + + + + | Pulse | 76 | 09/12/2016 12:50 PM | | | | | PDT | | + + + + + | Temperature | 36.4 C (97.5 F) | 09/12/2016 12:50 PM | | | | | PDT [...] encounter Progress Notes Nolvia Delgado MD - 09/12/2016 1:00 PM PDTI performed a history and physical examination of the patient and discussed her management with the resident. I reviewed the resident s note and agree with the documented findings and plan of care. MD Nolvia Sanz MD NEUROSURGERY AT [facility] [address] Mailcode: [place] [id number] Ada Gong MD,P hD - 09/12/2016 1:00 PM PDT NEUROSURGERY CLINIC HISTORY & PHYSICAL EXAMINATION Author: Ada Wiley MD,PhD Date: 09/12/2016 Attending Physician: Danny PCP: REENA Gusman HPI: Ms. 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 She was recently electively admitted 08/17/16 for management of bilateral large SDH that occurred when her shunt was turned down to 1.0. This was treated c onservatively with increasing valve setting to 2.5. Overall, Ms. Casas is a doing well, and denies increasing RAHMAN, N/V. She does, however, continue to experience progressively worsening weakness and spasticity of her Right arm and leg. She states that she is no longer to do ba sic ADLs as she was before, including eating, toileting, or ambulating. These symptoms had s omewhat improved with the re-introduction of oral baclofen a few months ago, but then has ex perienced a set back with the development of the SDHs. ALLERGIES: No Known Allergies Past Medical History: Diagnosis Date Blindness of both eyes, impairment level not further specified Cerebral palsy (HCC) Epilepsy, partial (HCC) H/O hydrocephalus Legally blind S/P placement of VNS (vagus nerve stimulation) device 2000 Seizures (HCC) Spastic quadriparesis (HCC) Past Surgical History Procedure Laterality Date Ankle surgery Ventriculostomy Implantation of vagal nerve stimulator 2000 Medications: Social History Substance Use Topics Smoking status: Never Smoker Smokeless tobacco: Never Used Alcohol use 0.0 - 1.8 oz/week 0 - 3 Cans of beer per week Comment: 3 glasses of beer per week Social History Narrative None on file PHYSICAL EXAM: BP 113/55 | Pulse 76 | Temp (Src) 36.4 C (97.5 F) (Forehead) General Appearance: NAD, Cooperative NEUROLOGICAL EXAM: Awake, alert. Able to give history Pupil equal, slightly dysconguate. Blind, tracks to voice RANULFO and LLE 5/5 RU and RLE spastic, 4/5 Bilateral Lowe's Patellar reflex 3+ bilat ASSESSMENT/PLAN: Ms. 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 Her CT today demonstrates slight decrease in the very large bilateral SDHs. Janice saldivar was initially treated with increasing her strata valve to 2.5, which has not helped signif icantly. Clinically, awake and alert without RAHMAN, but SDH could be contributing to her Right sided weakness/spasticity. This should be treated before any decision is made about a baclof en trial. We did talk about taking her oral baclofen in the morning, instead of at bedtime, to see if that provides any benefit -given good neurological status, will elective take her for bilateral aime holes next week This case has been discussed with Dr. Delgado, attending neurological surgeon, who is in agr eement with the assessment and plan as defined. Ada Wiley MD,PhD Ada Wiley MD,PhD Neurological Surgery, PGY-5 documented in janice saldivar encounter Plan of Treatment +--------+---------+ + + + | Date | Type | Specialty | Care Team | Description | +--------+---------+ + + + | 11/24/ | Office | Neurological Surgery | Nolvia Delgado, | | | 2019 | Visit | | [address] | | | | | | [place], [place] | | | | | | [address] | | | | | | [phone] | | | | | | | | +--------+---------+ + + + documented as of this encounter Results CT HEAD WO CONTRAST (09/12/2016 2:05 PM PDT) + + | Specimen | + + | | + + + + + | Narrative | Performed At | + + + | EXAM: CT HEAD WITHOUT CONTRAST HISTORY: No shunt, subdural | [facility] | | hematoma. COMPARISON: 08/22/16 TECHNIQUE: CT images of the | RADIOLOGY VOICE | | brain from skull base to vertex were obtained without contrast. | RECOGNITION | | FINDINGS: Brain: Right posterior approach ventriculoperitoneal shunt | | | is unchanged in position when compared to the previous exam. The | | | lateral and third ventricular size is essentially stable. Since the | | | previous exam there has been increased conspicuity of some | | | hyperdensity within the extra-axial fluid collections overlying the | | | right hemisphere. Whether this represents redistribution of blood | | | products, clotting blood, or small amount of new hemorrhage is | | | uncertain. No significant increase in size of the extra-axial | | | collections. The left-sided extra-axial collections are similar in | | | appearance. No shift of midline structures. Cisterns remain patent. | | | Soft tissues: Scalp changes related to shunt placement. Skull/Skull | | | base: No fractures or destructive lesions. Mastoids and middle ears | | | are unremarkable. Face/Orbits: Visualized portions are unremarkable. | | | Paranasal Sinuses: Small amount of fluid and/or mucosal thickening | | | left maxillary sinus. IMPRESSION: Stable ventricular shunt | | | position and size of the lateral and third ventricles. Although | | | extra-axial fluid collections are stable in size there is some change | | | in the appearance of the subdural collections particularly on the | | | right. Some hyperdensity has appeared which could represent small | | | amount of rebleed although redistribution of blood products or | | | clotting blood could also give this appearance. I have | | | personally reviewed the images and, if necessary, edited the report. | | | I agree with the report as now presented. | | + + + + + | Procedure Note | + + | Service Account, Radiant Res In Interface - 09/13/2016 9:26 AM PDT EXAM: CT HEAD | | WITHOUT CONTRAST HISTORY: No shunt, subdural hematoma.COMPARISON: 08/22/16TECHNIQUE: CT | | images of the brain from skull base to vertex were obtained without contrast.FINDINGS: | | Brain: Right posterior approach ventriculoperitoneal shunt is unchanged in position when | | compared to the previous exam. The lateral and third ventricular size is essentially | | stable. Since the previous exam there has been increased conspicuity of some | | hyperdensity within the extra-axial fluid collections overlying the right hemisphere. | | Whether this represents redistribution of blood products, clotting blood, or small | | amount of new hemorrhage is uncertain. No significant increase in size of the | | extra-axial collections. The left-sided extra-axial collections are similar in | | appearance. No shift of midline structures. Cisterns remain patent. Soft tissues: Scalp | | changes related to shunt placement. Skull/Skull base: No fractures or destructive | | lesions. Mastoids and middle ears are unremarkable. Face/Orbits: Visualized portions | | are unremarkable. Paranasal Sinuses: Small amount of fluid and/or mucosal thickening | | left maxillary sinus. IMPRESSION:Stable ventricular shunt position and size of the | | lateral and third ventricles.Although extra-axial fluid collections are stable in size | | there is some change in the appearance of the subdural collections particularly on the | | right. Some hyperdensity has appeared which could represent small amount of rebleed | | although redistribution of blood products or clotting blood could also give this | | appearance.I have personally reviewed the images and, if necessary, edited the report. | | I agree with the report as now presented. | | | | | |I have personally reviewed the images and, if necessary, edited the report. I agree with t he report as now presented. | + + + +---------+ + + | Performing | Address | City/State/Zipcode | Phone Number | | Organization | | | | + +---------+ + + | [facility] | | | | | VOICE RECOGNITION | | | | + +---------+ + + documented in this encounter Visit Diagnoses + + | Diagnosis | + + | Acute on chronic intracranial subdural hematoma (HCC) - Primary | + + documented in this encounter"
--- OUTSIDE RECORDS SUMMARY | ~2019-10-25 | XMS | Encounter Summary ---
Demographics + + + | Address | [address] | | | [place] [address] | + + + | Home Phone | | + + + | Preferred Language | Unknown | + + + | Marital Status | Single | + + + | Hoahaoism Affiliation | NRP | + + + | Race | White | + + + | Ethnic Group | Not or | + + + Author + + + | Author | [facility] | + + + | Organization | [facility] | + + + | Address | Unknown | + + + | Phone | Unavailable | + + + Support + + + + + | Name | Relationship | Address | Phone | + + + + + | Malina Nicole | ECON | [address] | | | | | [place] | | | | | [address] | | + + + + + | Scott Mcgarry ECON | Unknown | | + + + + + Care Team Providers + +------+ + | Care International Project Manager Name | Role | Phone | [...] | | | | Acute on | Kristen E, | [facility] [address] | | | | | chronic | [place] [address] | [address] | | | | | intracranial | [address] | Ja[facility] Escalante [facility]IRIAM | | | | | subdural | [place], [place] | Hospital, | | | | | hematoma | [address] | 10th Floor | | | | | (HCC) | Phone: | [place], [place] | | | | | Procedures | [phone] | [address] | | | | | CT HEAD WO | Fax: | Phone: | | | | | CONTRAST | [phone] | [phone] | | | | | | | Fax: | | | | | | | [phone] | +--------+--------+ + + + + Reason [...] | | | | Acute on | Kristen E, | [facility] [address] | | | | | chronic | [place] [address] | [address] | | | | | intracranial | [address] | [address] [facility] | | | | | subdural | [place], [place] | Hospital, | | | | | hematoma | [address] | 10th Floor | | | | | ([facility]) | Phone: | [place], [place] | | | | | Procedures | [phone] | [address] | | | | | CT HEAD WO | Fax: | Phone: | | | | | CONTRAST | [phone] | [phone] | | | | | | | Fax: | | | | | | | [phone] | +--------+--------+ + + + + Encounter Details +--------+ + + + + | Date | Type | Department | Care Team | Description | +--------+ + + + + | 10/31/ | Hospital | Radiology/Imaging | Bernardo, | | | 2017 | Encounter | Lab at [facility] [address] | REENA Hunter | | | | | [address] [facility] | [address] | | | | | [facility], | [place], [place] | | | | | Building [address], [facility] | [address] | | | | | Floor [facility] [place] | [phone] | | | | | [address] | | | | | | [phone] | | | +--------+ + + + [...] 2 tablets by | | 0 | // | | | mg oral tablet | [...] | | 2020 | Visit | | [address] | | | | | | [place], [place] | | | | | | [address] | | | | | | [phone] | | | | | | | | +--------+---------+ + + + documented as of this encounter Procedures + +--------+ + + + | Procedure Name | Priori | Date/Time | Associated Diagnosis | Comments | | | ty | | | | + +--------+ + + + | CT HEAD WO CONTRAST | Routin | 10/31/2016 | Acute on chronic | Results for this | | | e | 12:23 PM | intracranial | procedure are in the | | | | PDT | subdural hematoma | results section. | | | | | (HCC) | | + +--------+ + + + documented in this encounter Results CT HEAD WO CONTRAST (10/31/2016 12:23 PM PDT) + + | Specimen | + + | | + + + + + | Narrative | Performed At | + + + | EXAM: CT head without contrast HISTORY: Status post aime hole | [facility] | | drainage of subdural hemorrhage, follow up. COMPARISON: 10/10/2016 | RADIOLOGY VOICE | | and multiple prior examinations. TECHNIQUE: CT of the head without | RECOGNITION | | contrast. FINDINGS: Brain: Slight interval decreased left | | | frontal extra-axial fluid collection now measuring approximately 2 cm | | | in maximum depth changed from 2.9 cm previously. Otherwise, the | | | remainder of the extra-axial mixed density fluid collections do not | | | appear changed. This results in less subjacent mass effect upon the | | | brain parenchyma. The left frontal horn appears mildly increased in | | | dilation, however, this is felt to to decreased mass effect or | | | ventriculomegaly. Right occipital approach ventricular peritoneal | | | shunt remains positioned within the left lateral ventricle as before. | | | Size of the ventricular system is not significantly changed to prior | | | imaging. Postsurgical changes of bilateral aime holes with | | | evacuation of subdural fluid is again noted. . . Soft tissues: | | | Postsurgical changes. Skull and skull base: No fractures . Mastoids | | | and middle ears are unremarkable. Face/orbits: Visualized portions | | | are unremarkable. Paranasal sinuses: Visualized portions are | | | unremarkable. IMPRESSION: Slight interval decreased size of a | | | left frontal extra-axial fluid collection up to 2 cm in maximum depth. | | | No evidence of midline shift or progressive ventriculomegaly. | | | Unchanged sequela of prior shunt catheter placement. I have | | | personally reviewed the images and, if necessary, edited the report. | | | I agree with the report as now presented. | | + + + + + | Procedure Note | + + | Service Account, Radiant Res In Interface - 10/31/2016 12:37 PM PDT EXAM: CT head | | without contrastHISTORY: Status post aime hole drainage of subdural hemorrhage, follow | | up.COMPARISON: 10/10/2016 and multiple prior examinations.TECHNIQUE: CT of the head | | without contrast.FINDINGS:Brain: Slight interval decreased left frontal extra-axial | | fluid collection now measuring approximately 2 cm in maximum depth changed from 2.9 cm | | previously. Otherwise, the remainder of the extra-axial mixed density fluid collections | | do not appear changed. This results in less subjacent mass effect upon the brain | | parenchyma. The left frontal horn appears mildly increased in dilation, however, this is | | felt to to decreased mass effect or ventriculomegaly. Right occipital approach | | ventricular peritoneal shunt remains positioned within the left lateral ventricle as | | before. Size of the ventricular system is not significantly changed to prior imaging. | | Postsurgical changes of bilateral aime holes with evacuation of subdural fluid is again | | noted. . . Soft tissues: Postsurgical changes.Skull and skull base: No fractures . | | Mastoids and middle ears are unremarkable.Face/orbits: Visualized portions are | | unremarkable.Paranasal sinuses: Visualized portions are unremarkable.IMPRESSION:Slight | | interval decreased size of a left frontal extra-axial fluid collection up to 2 cm in | | maximum depth. No evidence of midline shift or progressive ventriculomegaly. Unchanged | | sequela of prior shunt catheter placement.I have personally reviewed the images and, if | | necessary, edited the report. I agree with the report as now presented. | | | |IMPRESSION: | | | |Slight interval decreased size of a left frontal extra-axial fluid collection up to 2 cm in maximum depth. No evidence of midline shift or progressive ventriculomegaly. Unchanged sequ lilia of prior shunt catheter placement. | | | | | |I have [...]
--- OUTSIDE RECORDS SUMMARY | ~2019-10-25 | XMS | Encounter Summary ---
Demographics + + + | Address | [address] | | | [place] [address] | + + + | Home Phone | | + + + | Preferred Language | Unknown | + + + | Marital Status | Single | + + + | Confucianism Affiliation | NRP | + + + | Race | White | + + + | Ethnic Group | Not or | + + + Author + + + | Author | [facility] | + + + | Organization | [facility] | + + + | Address | Unknown | + + + | Phone | Unavailable | + + + Support + + + + + | Name | Relationship | Address | Phone | + + + + + | Malina Nicole | ECON | [address] | | | | | [place] | | | | | [address] | | + + + + + | Scott Mcgarry ECON | Unknown | | + + + + + Care Team Providers + +------+ + | Care Bank Messenger Name | Role | Phone | + +------+ + | Patricia Bowers | PCP | | + +------+ + Reason for Visit Diagnostic Testing (Routine) +--------+--------+ + + + + | Status | Reason | Specialty | Diagnoses / | Referred By | Referred To | | | | | Procedures | Contact | Contact | +--------+--------+ + + + + | Closed | | Radiology | Diagnoses | Chang, | [facility] | | | | | | Kristen E, | [address] | | | | | Hydrocephalu | [place] [address] | [facility] | | | | | s (HCC) | [address] | [facility] | | | | | Procedures | [place], [place] | Research | | | | | MRI BRAIN WO | [address] | Center | | | | | CONTRAST | Phone: | [facility] [place] | | | | | | [phone] | [address] | | | | | | Fax: | Phone: | | | | | | [phone] | [phone] | | | | | | | Fax: | | | | | | | [phone] | +--------+--------+ + + + + Encounter Details +--------+ + + + + | Date | Type | Department | Care Team | Description | +--------+ + + + + | 07/15/ | Hospital | Diagnostic Imaging | | | | 2012 | Encounter | Services at [facility] | | | | | | [address] | | | | | | [place] | | | | | | Research Center | | | | | | [place], [place] | | | | | | [address] | | | | | | [phone] | | | +--------+ + + + [...] 11/24/ | Office | Neurological Surgery | Danny Nolvia Azul, | | | 2019 | Visit | | [address] | | | | | | [place], [place] | | | | | | [address] | | | | | | [phone] | | | | | | | | +--------+---------+ + + + + +---------+--------+ + + | Name | Type | Priori | Associated Diagnoses | Date/Time | | | | ty | | | + +---------+--------+ + + | MRI BRAIN WO | Imaging | Routin | Hydrocephalus | 07/15/2012 9:39 PM | | CONTRAST | | e | | PDT | + +---------+--------+ + + documented as of this encounter Visit Diagnoses + + | Diagnosis | + + | Hydrocephalus (HCC) Obstructive hydrocephalus | + + documented in this encounter"
--- OUTSIDE RECORDS SUMMARY | ~2019-10-25 | XMS | Encounter Summary ---
Demographics + + + | Address | [address] | | | [place] [address] | + + + | Home Phone | | + + + | Preferred Language | Unknown | + + + | Marital Status | Single | + + + | Congregational Affiliation | NRP | + + + | Race | White | + + + | Ethnic Group | Not or | + + + Author + + + | Author | [facility] | + + + | Organization | [facility] | + + + | Address | Unknown | + + + | Phone | Unavailable | + + + Support + + + + + | Name | Relationship | Address | Phone | + + + + + | Malina Nicole | ECON | [address] | | | | | [place] | | | | | [address] | | + + + + + | Scott Nicole | ECON | Unknown | | + + + + + Care Team Providers + +------+ + | Care Sectional Belt Mold Assembler Name | Role | Phone | + +------+ + | Gabe Baird DO | PCP | | + +------+ + Encounter Details +--------+ + + + + | Date | Type | Department | Care Team | Description | +--------+ + + + + | 04/23/ | Procedure | [address] | | | | 2020 | Pass | [facility] | | | | | | [facility] | | | | | | [facility] Admitting | | | | | | Desk Located on the | | | | | | 9th floor | | | | | | [place], [place] | | | | | | [address] | | | +--------+ + + + [...] [address] | | | | | | [place], [place] | | | | | | [address] | | | | | | [phone] | | | | | | | | +--------+---------+ + + + documented as of this encounter Visit Diagnoses Not on filedocumented in this encounter"
--- OUTSIDE RECORDS SUMMARY | ~2019-10-25 | XMS | Encounter Summary ---
Demographics + + + | Address | [address] | | | [place] [address] | + + + | Home Phone | | + + + | Preferred Language | Unknown | + + + | Marital Status | Single | + + + | Gnosticist Affiliation | NRP | + + + | Race | White | + + + | Ethnic Group | Not or | + + + Author + + + | Author | [facility] | + + + | Organization | [facility] | + + + | Address | Unknown | + + + | Phone | Unavailable | + + + Support + + + + + | Name | Relationship | Address | Phone | + + + + + | Malina Nicole | ECON | [phone] | | | | | [place] | | | | | [phone] | | + + + + + | Scott Mcgarry ECON | Unknown | | + + + + + Care Team Providers + +------+ + | Care Cargo Bracer Name | Role | Phone | + [...] +--------+---------+ + + + | 09/14/ | Surgery | 6A Intra Op [id number] | Nolvia Delgado, | REDO ANTERIOR | | 2013 | | [address] | [address] | ENDOSCOPIC THIRD | | | | [facility] | [place], [place] | VENTRICULOSTOMY, | | | | Hospital Admitting | [address] | | | | | Desk Located on the | [phone] | | | | | 9th floor | | | | | | [facility] [place] | | | | | | [address] | | | +--------+---------+ + + + [...] + + + | Blood Pressure | 142/82 | 09/15/2013 12:00 PM | | | | | PDT | | + + + + + | Pulse | 101 | 09/15/2013 12:00 PM | | | | | PDT | | + + + + + | Temperature | 36.4 C (97.5 F) | 09/15/2013 12:00 PM | | | | | PDT | | + + + + + | Respiratory Rate | 19 | 09/15/2013 12:00 PM | | | | | PDT | | + + + + + | Oxygen Saturation | 96% | 09/15/2013 12:00 PM | | | | | PDT | | + + + + + | Inhaled Oxygen | - | - | | | Concentration | | | | + + + + + | Weight | 97.7 kg (215 lb 6.2 | 09/14/2013 1:00 PM | | | | oz) | PDT | | + + + + + | Height | 175.3 cm (5' 9") | 09/14/2013 1:00 PM | | | | | PDT | | + + + + + | Body Mass Index | 31.81 | 09/14/2013 1:00 PM | | | | | PDT | | + + + + + documented in this encounter Discharge Summaries Hema Barclay MD - 09/15/2013 1:41 PM PDTFormatting of this note might be different fro m the original. NEUROSURGERY DISCHARGE SUMMARY: Patient: Rin Casas Admission Date: 09/14/2013 Discharge Date: 09/15/2013 Attending Physician: Nolvia Delgado MD PCP: REENA Patricia Service: [facility] Neurosurgery Diagnoses Principal Final Diagnosis: Hydrocephalus Additional Diagnoses: Procedures Redo endoscopic third ventriculostomy Brief Hospital Course Rin Casas is a 43 y.o. female with a history of post-infectious hydrocephalus, s/p ET V, admitted electively on 09/14/2013 for a redo ETV. She had presented to clinic with increas ing right sided tone and weakness, which had been her presentation with shunt failure in the past. She underwent an uncomplicated ETV on 09/14/13, where she was found to be under signifi cant pressure from failure of the prior ETV. The inpatient stay related to this procedure to ok an uncomplicated perioperative course and the patient was followed closely by the [facility] providers, resident providers, and medical/nursing staff. Post operatively, the patient was admitted to the hospital for convalescent care. Pain con trol was managed with medication. The patient made appropriate gains toward activity and fu nctional goals while an inpatient. While on the hospital floor, the patient tolerated oral intake sufficient to maintain nutri tion and hydration. The surgical wound remained clean, dry, and intact without signs concern ing for infection. The patient was felt appropriate for discharge to home on 09/15/2013, and the patient and/or family members agree with this course of action. Diet Regular Regular diet- There are no restrictions to your diet. You may eat or drink whatever you pr efer, though healthy food choices are recommended. Activity Avoid heavy lifting, repetitive bending and all strenuous activity until further notice. No driving while taking oral narcotics/pain medications. Destination: Destination: Home Condition on Discharge Good Follow Up Appointments: PCP:REENA Patricia When: Please follow-up with your primary care [...] or visual changes Current Discharge Medication List CONTINUE these medications which have NOT CHANGED Details lamoTRIgine 100 mg Oral tablet Take 100 mg by mouth two times daily. MULTIVITAMIN ORAL Take by mouth. VITAMIN B COMPLEX ORAL Take by mouth. Condition On Discharge: Good Vital Signs at discharge as appropriate: BP: 142/82 mmHg (09/15/13 1200) Pulse: 101 (09/15/13 1200) Resp: 19 (09/15/13 1200) Weight: 97.7 kg (215 lb 6.2 oz) (09/14/13 1300) Discharge Patient To: Home Does patient have a planned readmission: No Discharge Summary Completed?: Yes. 09/15/2013 Discharging Provider: HEMA BARCLAY MD Date Completed: 09/15/2013 Time Completed: 1:42 PM Discharging Attending: Nolvia Delgado MD [facility] [id number] [address] documented in this en counter Discharge Instructions Instructions Malou Ch RN - 09/15/2013Patient Education Materials: Craniotomy post-o p instructions, AVS Additional Instructions: none Discharge Nurse: MALOU CH Date: 09/15/2013 Discharge Time: 14:20 PM AttachmentsThe following attachments cannot be sent through Care Everywhere.CRANIOTOMY : PO ST-OP (FAROESE)documented in this encounter Medications at Time of [...] documented as of this encounter Progress Notes Ubaldo Newman MD - 09/15/2013 10:11 AM PDT 7[facility] ATTENDING DIRECTOR OF DESIGN DAILY PROGRESS NOTE Team Pager: [phone] Attendin Date:09/15/2013 Critical Care Attending Physician: UBALDO NEWMAN MD Referring Atte uting Physician: Nolvia Delgado MD I saw and evaluated the patient at the bedside together with Dr Luna. I reviewed her findin gs, all data and the the recent imaging available. I agree with her assessment and the plan as documented. I have discussed findings and plan of care with the primary team and the con sultants involved. 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 MD, PhD [facility] DEPARTMENT: [id number] ICU NEURO Place of Service:- Inpatient Date of Service: 09/15 CSN: [id number] Suggested Modifier: GC - Resident Involved Suggested CPT: TO REVENUE SPECIALIST RELEVANT DATA: Last Vitals: BP 137/75 | Pulse 117 | Temp 37 C (98.6 F) | RR 18 | Ht 1.753 m (5' 9") | Wt 97.7 kg (215 lb 6.2 oz) | SpO2 94% | BMI 31.79 kg/(m^2) Intake/Output Summary (Last 24 hours) at 09/15/13 1013 Last data filed at 09/15/13 0900 Gross per 24 hour Intake 1460 ml Output 100 ml Net 1360 ml Recent Labs 09/15/13 021 NA 141 K 3.8 CL 110* BICARB 22 BUN 13 CR 0.66 CA 8.7 Recent Labs 09/15/13214 WBC 21.42* HB 14.4 HCT 43.1 PLT 311 BuHema boswell MD - 09/15/2013 10:02 AM PDT NEUROSURGERY PROGRESS NOTE Author: HEMA BARCLAY MD Today's Date: 09/15/2013 Attending Physician: Nolvia Delgado MD INTERVAL UPDATE: -OR for redo ETV yesterday, no shunt -Feeling well this morning, no RAHMAN, no N/V -AF, VSS -Post-op CT unchanged VITAL SIGNS: BP 137/75 | Pulse 117 | Temp 37 C (98.6 F) | RR 18 | Ht 1.753 m (5' 9") | Wt 97.7 kg (2 15 lb 6.2 oz) | SpO2 94% | BMI 31.79 kg/(m^2) Recent Labs 09/15/13214 WBC 21.42* HB 14.4 HCT 43.1 PLT 311 Chemistries: Last 72 Hours (or 3 results): Recent Labs 09/15/13214 NA 141 K 3.8 CL 110* BICARB 22 BUN 13 CR 0.66 GLU 114* CA 8.7 Recent Labs 09/15/13214 GLU 114* Intake/Output Summary (Last 24 hours) at 09/15/13 1002 Last data filed at 09/15/13 0900 Gross per 24 hour Intake 1460 ml Output 100 ml Net 1360 ml Current facility-administered medications:bisacodyl (DULCOLAX) suppository 10 mg, 10 mg, re ctal, BID PRN, Mehrdad Francis MD,PhD ceFAZolin (ANCEF) IV 2 g, 2 g, intravenous, Q8H, Ivy Leos MD, 2 g at 09/15/13 035 3 guar gum (BENEFIBER) oral powder 1 packet, 1 packet, oral, DAILY PRN, Davina Pizarro MD HYDROcodone-acetaminophen (NORCO) 5-325 mg tablet 1-2 tablet, 1-2 tablet, oral, Q4H PRN, Jeff Francis MD,PhD HYDROcodone-acetaminophen (NORCO) 7.5-325 mg/15 mL liquid, 10-20 mL, feeding tube, Q4H PRN, Mehrdad Francis MD,PhD lamoTRIgine (LAMICTAL) tablet 100 mg, 100 mg, oral, BID, Mehrdad Francis MD,PhD, 100 mg at 0 09/15/13 0913 magnesium hydroxide (MILK OF MAGNESIA) suspension 30 mL, 30 mL, oral, DAILY PRN, Davina christy MD metoclopramide HCl (REGLAN) injection 5-10 mg, 5-10 mg, intravenous, Q4H PRN, Mehrdad Francis MD,PhD ondansetron (ZOFRAN) injection 4 mg, 4 mg, intravenous, ONCE, Mehrdad Francis MD,PhD ondansetron (ZOFRAN) injection 4 mg, 4 mg, intravenous, Q8H, Mehrdad Francis MD,PhD, 4 mg at 09/15/13 0718 [START ON 09/16/2013] ondansetron (ZOFRAN) injection 4 mg, 4 mg, intravenous, Q8H PRN, Mehrdad Francis MD,PhD [START ON 09/18/2013] ondansetron (ZOFRAN) injection 4 mg, 4 mg, intravenous, Q12H PRN, Mehrdad Francis MD,PhD polyethylene glycol (MIRALAX) powder 17 g, 17 g, oral, DAILY PRN, Davina Pizarro MD senna-docusate (SENOKOT S) 8.6-50 mg 1 tablet, 1 tablet, oral, BID, Mehrdad Francis MD,PhD, 1 tablet at 09/15/13 0913 simethicone chew (MYLICON) tablet 80 mg, 80 mg, oral, TID PRN, Davina Pizarro MD NEUROLOGICAL EXAM: Awake, alert, oriented to self, [place], and September, (not date) Eyes open spontaneously PERRL, impaired right gaze Follows commands briskly in all 4 extremities Increased tone on right side, but moves extremities easily Full strength throughout SILT Incision c/d/i ASSESSMENT/PLAN: 43 y.o. female HD#1 with history of post-infectious HCP, aqueductal stenosis, and CP who pr esented with increased spasticity and weakness on the right. She underwent a redo ETV 09/14/13 . -Transfer to [facility] today -Q4H neurochecks -Finish post-op ancef -Pain management, well-controlled currently, stopping IV morphine for tx (has not needed th is) -Keep incision clean and dry HEMA BARCLAY MD Neurological Surgery, PGY-2 o, Davina Luna MD - 7:57 AM PDT Neurocritical Care Progress Note Intensive Care Unit Patient Name: Rin Casas Attending Provider: Nolvia Delgado MD ICU Attending: MD Maxwell Churchill Room#: 10/15 Hospital Day: 2 Post-op Day: 1 ID: 43 year old woman with h/o hydrocephalus from aqueductal stenosis and previous ETV, her e for re-do ETV yesterday. 24 Hour Events: - Benites out - No EVD placed intraoperatively - No acute events S: Feeling well, denies headaches, urinary difficulties. Reports that spasticity and weakne ss is improved. Inpatient Medications: Gtts: Scheduled: ceFAZolin 2 g Q8H lamoTRIgine 100 mg BID ondansetron 4 mg ONCE ondansetron 4 mg Q8H senna-docusate 1 tablet BID PRN: bisacodyl 10 mg BID PRN guar gum 1 packet DAILY PRN HYDROcodone-acetaminophen 1-2 tablet Q4H PRN Or HYDROcodone-acetaminophen 10-20 mL Q4H PRN magnesium hydroxide 30 mL DAILY PRN metoclopramide HCl 5-10 mg Q4H PRN morphine 1-4 mg Q2H PRN [START ON 09/16/2013] ondansetron 4 mg Q8H PRN [START ON 09/18/2013] ondansetron 4 mg Q12H PRN polyethylene glycol 17 g DAILY PRN potassium chloride 10-40 mEq PRN Or potassium chloride 10-40 mEq PRN potassium chloride 10-40 mEq PRN simethicone chew 80 mg TID PRN OBJECTIVE Vitals Last Vitals: BP 137/78 | Pulse 102 | Temp 37 C (98.6 F) | RR 16 | Ht 1.753 m (5' 9") | Wt 97.7 kg (215 lb 6.2 oz) | SpO2 96% | BMI 31.79 kg/(m^2) 24 Hour Vital Min/Max: Systolic (24hrs), Av mmHg, Min:130 mmHg, Max:163 mmHg Diastolic (24hrs), Av mmHg, Min:29 mmHg, Max:90 mmHg Pulse Min: 79 Max: 115 Temp Min: 36.5 C (97.7 F) Max: 37 C (98.6 F) Resp Min: 10 Max: 19 SpO2 Min: 92 % Max: 100 % Intake/Output Summary (Last 24 hours) at 09/15/13 0758 Last data filed at 09/15/13 0700 Gross per 24 hour Intake 1150 ml Output 100 ml Net 1050 ml CBC with diff last 72 hours (or 3 results) Recent Labs 09/15/13 0215 WBC 21.42* HB 14.4 HCT 43.1 PLT 311 Recent Labs 09/15/13 0215 NA 141 Neuro Mental Status: Awake, alert, attentive. Oriented x3. Language intact. Cranial Nerves: CN II: PEERL CN III, IV, : Baseline dysconjugate gaze, EOMI with mild difficulties moving eyes to the right CN V: facial sensation normal in all 3 divisions CN VII: face symmetric, normal eye closure and smile CN VIII: hearing intact to voice CN IX, X: no dysarthria, soft palate elevation normal and symmetric CN XII: tongue protrudes midline Motor: RUE: 4/5 RLE: 4/5 LUE: 5/5 LUE: 5/5 Sensory: Intact to light touch in all 4 extremities Cardiovascular RRR, no m/r/g Pulmonary CTAB Gastrointestinal Soft, NT, ND. Musculoskeletal Extremities warm, well perfused. Skin intact. ASSESSMENT AND PLAN 43 year old woman with hydrocephalus from aqueductal stenosis and previous ETV, now s/p re- do ETV POD 1. Neurologically returned to baseline, no complaints from patient. Neuro Hydrocephalus from aqueductal stenosis - no EVD placed yesterday - neuro checks can be spaced to Q4H H/o seizure disorder - on home lamotrigine CV No h/o CV disorders - Keep SBP below 160 Pulmonary No h/o pulm disorders, breathing comfortably and saturating well on RA - incentive spirometry GI No active issues. - regular diet as tolerated FEN/RENAL Normal renal function. No active issues. - Benites out - electrolytes normal today, replace PRN Endocrine No h/o DM. No active issues, CBGs are within normal limits. - SSI Heme No active issues. - SCDs for thromboprophylaxis - No lovenox until 72 hr post op ID Afebrile, no e/o infection. Unexplained leukocytosis of 21 today - continue to monitor leukocytosis PT/OT/ST: Yes CODE STATUS/GOALS OF CARE: Full, transfer to floor Feeding: regular Analgesia: APAP, oxycodone, fentanyl PRN Sedation: None Thromboprophylaxis: Hold until 72 hours post surgery Head of Bead: >30 degrees Ulcer Prophylaxis: Not applicable Glycemic Control: insulin sliding Skin: addressed Activities: Ambulate Bowel care: bowel regimen Patient seen and discussed with attending Dr. Newman. Note Author: DAVINA PIZARRO MD Pager [phone] iDavin anderson MD,MP H - 09/14/2013 9:16 PM PDT NEUROSURGERY POST OPERATIVE CHECK Author: DAVIN CHESTER MD,MPH Date: 09/14/2013 Attending Physician: Nolvia Delgado MD PROCEDURE:Redo left endoscopic third ventriculostomy for Recurrent hydrocephalus after prev ious endoscopic third ventriculostomy S: Feels "better". Denies headache, numbness, weakness, nausea. VITAL SIGNS: BP 159/90 | Pulse 100 | Temp 36.8 C (98.2 F) | RR 18 | Ht 1.753 m (5' 9") | Wt 97.7 kg (215 lb 6.2 oz) | SpO2 98% | BMI 31.79 kg/(m^2) PHYSICAL EXAM FINDINGS: A&O to name, date, location, and situation Following commands, answering appropriately PERRL, unable to follow finger due to OU blindness EOMI but limited, Conjugate gaze Sensation in tact in V1-V3 distributions bilaterally; Face motor grossly intact; eyes close fully Hearing intact to rub, Shrugs shoulders bilaterally, Tongue midline QUINTANILLA greater than antigravity, No Pronator Drift Sensation intact in all extremities, gait not examined Incision covered with dressing/crani cap - C/D/I, some dried blood POST OPERATIVE IMAGING: Head CT: pending A/P: Neurologically stable. Continue care: - F/u head CT - Neuro checks q 1 hour - Keep incision and dressings C/D/I. - Maintain adequate analgesia with goal RASS 0 - SBP 100-160 - ADAT - Utilize bowel regimen for goal 1 BM per 24 hours - SCDs while in bed Davin Chester MD MPH PGY-2, Neurological Surgery documented in this encounter Plan of Treatment +--------+---------+ + + + | Date | Type | Specialty | Care Team | Description | +--------+---------+ + + + | 11/24/ | Office | Neurological Surgery | Danny[place], | | | 2019 | Visit | | [address] | | | | | | [place], [place] | | | | | | [address] | | | | | | [phone] | | | | | | | | +--------+---------+ + + + documented as of this encounter Procedures + +--------+ + + + | Procedure Name | Priori | Date/Time | Associated Diagnosis | Comments | | | ty | | | | + +--------+ + + + | PROCEDURE NOTE | Routin | 04/20/2015 | | Results for this | | | e | 6:26 PM | | procedure are in the | | | | PST | | results section. | + +--------+ + + + | PROCEDURE NOTE | Routin | 04/20/2015 | | Results for this | | | e | 6:24 PM | | procedure are in the | | | | PST | | results section. | + +--------+ + + + | OPERATION RECORD | | 09/16/2013 | | Results for this | | | | 9:05 AM | | procedure are in the | | | | PDT | | results section. | + +--------+ + + + | CBC (HEMOGRAM) ONLY | Urgent | 09/15/2013 | | Results for this | | | | 2:15 AM | | procedure are in the | | | | PDT | | results section. | + +--------+ + + + | BASIC METABOLIC SET | Urgent | 09/15/2013 | | Results for this | | (NA, K, CL, TCO2, | | 2:15 AM | | procedure are in the | | BUN, CR, GLU, CA) | | PDT | | results section. | + +--------+ + + + | CBC ONLY | Urgent | 09/15/2013 | | Results for this | | | | 2:15 AM | | procedure are in the | | | | PDT | | results section. | + +--------+ + + + | CT HEAD WO CONTRAST | Urgent | 09/14/2013 | | Results for this | | | | 9:32 PM | | procedure are in the | | | | PDT | | results section. | + +--------+ + + + | ENDOSCOPIC 3RD | Electi | 09/14/2013 | Congenital | | | VENTRICULOSTOMY | ve | 7:13 PM | hydrocephalus (HCC) | | | PLACEMENT | Surgic | PDT | | | | | al | | | | + +--------+ + + + +---+--------+ | | | | | Specia | | | l | | | Needs | | | ICU | | | Post | | | Op | +---+--------+ + +--------+ +---+ + | ANTIBODY SCREEN | Urgent | 09/14/2013 | | Results for this | | | | 4:09 PM | | procedure are in the | | | | PDT | | results section. | + +--------+ +---+ + | TYPE AND SCREEN | Urgent | 09/14/2013 | | Results for this | | | | 4:09 PM | | procedure are in the | | | | PDT | | results section. | + +--------+ +---+ + | ABO & RH TYPE | Urgent | 09/14/2013 | | Results for this | | | | 4:09 PM | | procedure are in the | | | | PDT | | results section. | + +--------+ +---+ + documented in this encounter Results PROCEDURE NOTE (04/20/2015 6:26 PM PST)PROCEDURE NOTE (04/20/2015 6:24 PM PST) + + | Transcriptions | + + | Other, Faculty - 09/18/2013 7:10 AM PDT | + + OPERATION RECORD (09/16/2013 9:05 AM PDT) + + | Transcriptions | + + | Mehrdad Francis MD,PhD - 09/14/2013 9:33 PM PDT Date of Service: | | 09/14/2013ttending Surgeon: Nolvia Delgado MD Chicken Sexer(s): Mehrdad | | MD Tito, PhD Preoperative Diagnosis: Recurrent hydrocephalus after | | previous endoscopic third ventriculostomy.Postoperative Diagnosis: Recurrent | | hydrocephalus after previous endoscopic third ventriculostomy.Procedure Performed: Redo | | left endoscopic third ventriculostomy.Indications: Rin Casas is a 43-year-old female | | with a history of cerebral palsy and slowly progressive hydrocephalus due to aqueductal | | stenosis. In 2012, she presented initially with progressive cognitive decline and | | hemiparesis, and she underwent a successful endoscopic third ventriculostomy. In the | | spring, she presented again with recurrence of her symptoms and a MRI scan | | revealed that her ventricle size, while it was never normal, had returned to its | | significantly dilated preoperative condition. A cine flow study was performed that did | | not show any patency of her 3rd ventriculostomy and therefore she was indicated to | | undergo reexploration, and she and her mother, who is her legal guardian, consented to | | proceed after a full PARQ discussion.Procedure In Detail: Patient was identified in the | | preoperative area. Consent for surgery was obtained and the site for surgery was | | marked. She was transferred to the operating room by the anesthesia team where general | | endotracheal anesthesia was induced without difficulty. She was then placed in the | | supine position on a horseshoe head rest, and the head of the bed was elevated slightly. | | A small patch of hair was clipped with electric clippers, and her previous curvilinear | | incision was identified and marked with indelible ink. Her scalp was then prepped | | sterilely, and the planned incision was then remarked with a sterile pen and infiltrated | | with local anesthetic. A team pause was then held according to the preformed script, | | all in agreement, and decision was made to proceed with surgery. Once the patient was | | sterilely draped, the planned incision was opened sharply with a skin knife and carried | | down to the bone. Periosteal elevators were used to elevate the scalp flap, and it was | | secured to the drapes with a stitch. The previous scar tissue was removed from the | | existing burhole with electrocautery, and we were able to see readily into her | | incredibly dilated ventricles. A split trocar was then advanced into the ventricle and | | secured to the scalp with rowena. We then white balanced and configured the pediascope | | neuroendoscope and confirmed its orientation on the screen. We then advanced it | | through the split trocar into the left lateral ventricle. We confirmed our orientation | | and identified the choroid plexus and a massively dilated left foramen of Monro. The | | scope was then advanced through the foramen of Monro into the 3rd ventricle, where we | | noted the infundibular recess and immediately posterior to this was a patulous and | | billowing floor of the 3rd ventricle. We were unable to visualize any of her previous | | fenestrations. The third ventricular floor was grasped with forceps and several large | | fenestrations were made. The scope was then passed through our fenestrations, and we | | were able to identify the basilar artery and noted that there were several arachnoid | | bands that appeared to be contiguous with the membrane of Liliequist were restricting | | CSF flow. We therefore obtained monopolar electrocautery and passed it through the | | endoscope, and we were able to fenestrate this membrane in several places with | | electrocautery. We then passed our endoscope through these fenestrations and were able | | to visualize down the clivus towards the foramen magnum. We felt at this point, that we | | had widely fenestrated and reopened her CSF drainage pathways and we had achieved our | | operative goals. We therefore withdrew the endoscope under continuous irrigation, | | inspecting for any active bleeding, of which there was none. We withdrew the endoscope | | again and confirmed widely patent fenestrations in both arachnoid layers and then | | withdrew the endoscope and reidentified the anatomy, including the choroid plexus, the | | septal vein, the thalamostriate vein, and the fornix, all of which were completely | | intact as we withdrew our endoscope from the field. With the endoscope withdrawn, we | | attempted to refill the ventricle with irrigation. A small Gelfoam pledget was placed | | in the burhole, and attention was turned to closure. The galea was closed with inverted | | interrupted 3-0 Vicryl sutures and the skin was closed with rowena. The wound was | | cleaned and dried. Bacitracin ointment was applied. The head was then cleaned | | according to protocol, and a stockinette head dressing was applied. Control of the | | operation was returned to Anesthesia for extubation, and she was transferred to recovery | | room in stable condition. All sponge, needle, and instrument counts were correct in 2 | | iterations at the end of the case, and Dr. Delgado was scrubbed and present for the kelley | | portions of the procedure.Mehrdad Francis MD, PhDAhmed Azul Delgado, /MODLDD: 09/14/2013 | | 20:56:59DT: 09/14/2013 21:33:07Job #: [id number] | + + CBC (HEMOGRAM) ONLY (09/15/2013 2:15 AM PDT) + + + + + + | Component | Value | Ref Range | Performed | Pathologist | | | | | At | Signature | + + + + + + | WHITE CELL | 21.42 (H) | 4.40 - 11.00 | [facility] | | | COUNT | | K/cu mm | LABORATORY | | | | | | SERVICES, | | | | | | CORE | | + + + + + + | RED CELL | 4.66 | 4.00 - 5.20 | [facility] | | | COUNT | | M/cu mm | LABORATORY | | | | | | SERVICES, | | | | | | CORE | | + + + + + + | HEMOGLOBIN | 14.4 | 12.0 - 16.0 | [facility] | | | | | g/dL | LABORATORY | | | | | | SERVICES, | | | | | | CORE | | + + + + + + | HEMATOCRIT | 43.1 | 36.0 - 46.0 % | [facility] | | | | | | LABORATORY | | | | | | SERVICES, | | | | | | CORE | | + + + + + + | MCV | 92.5 | 80.0 - 96.0 fL | [facility] | | | | | | LABORATORY | | | | | | SERVICES, | | | | | | CORE | | + + + + + + | MCHC | 33.4 | 33.0 - 35.5 | [facility] | | | | | g/dL | LABORATORY | | | | | | SERVICES, | | | | | | CORE | | + + + + + + | RDW SD | 45.1 | 35.1 - 46.3 fL | [facility] | | | | | | LABORATORY | | | | | | SERVICES, | | | | | | CORE | | + + + + + + | PLATELET | 311 | 150 - 400 K/cu | [facility] | | | COUNT | | mm | LABORATORY | | | | | | SERVICES, | | | | | | CORE | | + + + + + + | MPV | 9.5 (L) | 9.7 - 12.3 fL | [...] [facility] | [address] | [place] [address] | | | SERVICES, CORE | [address] | | | + + + + + BASIC METABOLIC SET (NA, K, CL, TCO2, BUN, CR, GLU, CA) (09/15/2013 2:15 AM PDT) + +---------+ + + + | Component | Value | Ref Range | Performed | Pathologist | | | | | At | Signature | + +---------+ + + + | GLUCOSE, | 114 (H) | 60 - 99 mg/dL | [facility] | | | PLASMA | | | LABORATORY | | | (LAB) | | | SERVICES, | | | | | | CORE | | + +---------+ + + + | BUN, PLASMA | 13 | 6 - 20 mg/dL | [facility] | | | (LAB) | | | LABORATORY | | | | | | SERVICES, | | | | | | CORE | | + +---------+ + + + | CREATININE | 0.66 | 0.60 - 1.10 | [facility] | | | PLASMA | | mg/dL | LABORATORY | | | (LAB) | | | SERVICES, | | | | | | CORE | | + +---------+ + + + | EGFR | >60 | >60 mL/min | [facility] | | | - | | | LABORATORY | | | [facility] | | | SERVICES, | | | | | | CORE | | + +---------+ + + + | EGFR NON | >60 | >60 mL/min | [facility] | | | -[facility] | | | LABORATORY | | | [facility] | | | SERVICES, | | | | | | CORE | | + +---------+ + + + | SODIUM, | 141 | 136 - 145 | [facility] | | | PLASMA | | mmol/L | LABORATORY | | | (LAB) | | | SERVICES, | | | | | | CORE | | + +---------+ + + + | POTASSIUM, | 3.8 | 3.4 - 5.0 | [facility] | | | PLASMA | | mmol/L | LABORATORY | | | (LAB) | | | SERVICES, | | | | | | CORE | | + +---------+ + + + | CHLORIDE, | 110 (H) | 97 - 108 mmol/L | [facility] | | | PLASMA | | | LABORATORY | | | (LAB) | | | SERVICES, | | | | | | CORE | | + +---------+ + + + | TOTAL CO2, | 22 | 21 - 32 mmol/L | [facility] | | | PLASMA | | | LABORATORY | | | (LAB) | | | SERVICES, | | | | | | CORE | | + +---------+ + + + | CALCIUM, | 8.7 | 8.6 - 10.2 | [facility] | [...] Blood | + + + + + | [...] | + + + + + | [facility] | [address] | [place] [address] | | | SERVICES, CORE | [address] | | | + + + + + CT HEAD WO CONTRAST (09/14/2013 9:32 PM PDT) + + + + + + | Component | Value | Ref Range | Performed | Pathologist | | | | | At | Signature | + + + + + + | CT HEAD WO | EXAM: CT head without | | | | | CONTRAST | contrast HISTORY: | | | | | | Evaluate for | | | | | | intraventricular | | | | | | hemorrhage. COMPARISON: | | | | | | Head CT 03/20/2012. MRI | | | | | | brain 08/05/2013, | | | | | | 07/16/2012 TECHNIQUE: CT | | | | | | of the head without | | | | | | contrast. FINDINGS: | | | | | | Brain: Increased density | | | | | | along the posterior | | | | | | falx and left tentorium | | | | | | cerebelli,including the | | | | | | free edge, is noted, | | | | | | which extends into the | | | | | | quadrigeminal | | | | | | platecistern, and may | | | | | | represent small subdural | | | | | | hemorrhage. No acute | | | | | | blood is seen inthe | | | | | | ventricles or within the | | | | | | interpeduncular | | | | | | cistern. Persistent | | | | | | hydrocephalus with | | | | | | intraventricular gas is | | | | | | noted, with | | | | | | ventricularmorphology | | | | | | similar in appearance | | | | | | compared to prior | | | | | | studies. There is | | | | | | persistentsulcal | | | | | | effacement noted to the | | | | | | cerebral cortex. Soft | | | | | | tissues: Scalp swelling | | | | | | is present. Overlying | | | | | | skin rowena noted.Skull | | | | | | and skull base: Left | | | | | | parietal aime hole is | | | | | | again noted. Mastoids | | | | | | andmiddle ears are | | | | | | unremarkable.Face/orbits | | | | | | : Visualized portions | | | | | | are | | | | | | unremarkable.Paranasal | | | | | | sinuses: Visualized | | | | | | portions are | | | | | | unremarkable. | | | | | | IMPRESSION: Possible | | | | | | small subdural | | | | | | hemorrhage tracks along | | | | | | the posterior falx and | | | | | | lefttentorium, with | | | | | | extension into the | | | | | | quadrigeminal plate | | | | | | cistern. Attending | | | | | | Radiologists: LLOYD | | | | | | SRUTHI STILLuthor: | | | | | | SALVATORE VIDAL, DO I have | | | | | | personally viewed this | | | | | | procedure/exam, reviewed | | | | | | this report, and | | | | | | madechanges to it where | | | | | | appropriate. | | | | | | Final/Electronically | | | | | | ronny / LLOYD | | | | | | CHEKO 09/15/2013 | | | | | | 12:59 PM Pending final | | | | | | approval / SALVATORE | | | | | | YOUNG 09/15/2013 10:49 AM | | | | | | Preliminary / | | | | | | SALVATORE VIDAL 09/15/2013 | | | | | | 9:22 AM | | | | + + [...] | | | + +---------+ + + ANTIBODY SCREEN (09/14/2013 4:09 PM PDT) + + + + + [...] | + + + + + | [facility] | [address] | [place] [address] | | | SERVICES, | [address] | | | | TRANSFUSION MEDICINE | | | | + + + + + ABO & RH TYPE (09/14/2013 4:09 PM PDT) + + + + + [...] + + + + + | [facility] | [address] | [place] [address] | | | SERVICES, | [address] | | | | TRANSFUSION MEDICINE | | | | + + + + + documented in this encounter Visit Diagnoses + + | Diagnosis | + + | Congenital hydrocephalus (HCC) Congenital hydrocephalus | + + documented in this encounter Administered Medications + +--------+ +------+------+ + | Medication Order | MAR | Action | Dose | Rate | Site | | | Action | Date | | | | + +--------+ +------+------+ + | bacitracin 50,000 Units, | Given | 09/15/19 | | | Surgical | | ringers (aka TIS-U-JERSON) 1,000 mL | | 14 8:18 | | | Site | | INTRAPROCEDURE PRN, Starting Tue | | PM PDT | | | | | 09/14/13 at 2018, Until 09/14/13 | | | | | | | at 2051 | | | | | | + +--------+ +------+------+ + +---+---+ | | | +---+---+ + +-------+ +---------+---+------+ | bacitracin ointment | Given | 09/15/19 | 1 strip | | Head | | INTRAPROCEDURE PRN, Starting Tue | | 14 8:57 | | | | | 09/14/13 at 2056, Until 09/14/13 | | PM PDT | | | | | at 2057 | | | | | | + +-------+ +---------+---+------+ +---+---+ | | | +---+---+ + +-------+ +------+---+------+ | bupivacaine-EPINEPHrine | Given | 09/15/19 | 7 mL | | Head | | (MARCAINE-EPINEPHRINE) 0.5 | | 14 8:17 | | | | | %-1:200,000 injection | | PM PDT | | | | | INTRAPROCEDURE PRN, Starting e | | | | | | | 09/14/13 at 2016, Until Fri09/14/13 | | | | | | | at 2051 | | | | | | + +-------+ +------+---+------+ +---+---+ | | | +---+---+ documented in this encounter
--- OUTSIDE RECORDS SUMMARY | ~2019-10-25 | XMS | Encounter Summary ---
Demographics + + + | Address | [address] | | | [place] [address] | + + + | Home Phone | | + + + | Preferred Language | Unknown | + + + | Marital Status | Single | + + + | Hinduism Affiliation | NRP | + + + | Race | White | + + + | Ethnic Group | Not or | + + + Author + + + | Author | [facility] | + + + | Organization | [facility] | + + + | Address | Unknown | + + + | Phone | Unavailable | + + + Support + + + + + | Name | Relationship | Address | Phone | + + + + + | Malina Nicole | ECON | [phone] | | | | | [place] | | | | | [phone] | | + + + + + | Scott Mcgarry ECON | Unknown | | + + + + + Care Team Providers + +------+ + | Care Industrial Spraypainter Name | Role | Phone | + +------+ + | Patricia Stevens | PCP | | + +------+ + Reason for Referral Physical Therapy (Routine) +--------+--------+ + + + + | Status | Reason | Specialty | Diagnoses / | Referred By | Referred To | | | | | Procedures | Contact | Contact | +--------+--------+ + + + + | Closed | | Physical | Diagnoses | Chang, | | | | | Therapy | Subdural | Kristen Duran, | | | | | | hematoma | PA [address] | | | | | | ([facility]) | [address] | | | | | | Procedures | [place], [place] | | | | | | PHYSICAL | [address] | | | | | | THERAPY | Phone: | | | | | | REFERRAL | [phone] | | | | | | | Fax: | | | | | | | [phone] | | +--------+--------+ + + + + Reason for Visit AUTH/CERT +--------+--------+ + [...] + + + + | 09/20/ | Hospital | [facility] [address] | Nolvia Delgado, | | | 2017 - | Encounter | [address] | [address] | | | | | [id number] [facility] | [place], [place] | | | 09/24/ | | [facility], | [address] | | | 2016 | | [place] [facility] | [phone] | | | | | [phone] | | | +--------+ + + + [...] + + + | Blood Pressure | 132/78 | 09/24/2016 11:48 AM | | | | | PDT | | + + + + + | Pulse | 93 | 09/24/2016 11:48 AM | | | | | PDT | | + + + + + | Temperature | 36.7 C (98.1 F) | 09/24/2016 11:48 AM | | | | | PDT | | + + + + + | Respiratory Rate | 16 | 09/24/2016 11:48 AM | | | | | PDT | | + + + + + | Oxygen Saturation | 94% | 09/24/2016 11:48 AM | | | | | PDT | | + + + + + | Inhaled Oxygen | - | - | | | Concentration | | | | + + + + + | Weight | 95.6 kg (210 lb 12.2 | 09/21/2016 3:00 AM | | | | oz) | PDT | | + + + + + | Height | 170.2 cm (5' 7") | 09/20/2016 2:44 PM | | | | | PDT | | + + + + + | Body Mass Index | 33.01 | 09/20/2016 2:44 PM | | | | | PDT | | + + + + + documented in this encounter Discharge Summaries Dimple Sage PA-C - 09/24/2016 10:50 AM PDTFormatting of this note might be different f rom the original. NEUROSURGERY DISCHARGE SUMMARY: Patient: Henrique Casas Admission Date: 09/20/2016 Discharge Date: 09/24/2016 Attending Physician: Nolvia Delgado MD PCP: REENA Gusman Service: [facility] Neurosurgery Diagnoses Principal Final Diagnosis: Bilateral chronic subdural hematomas Additional Diagnoses: Blindness History of toxoplasmosis History of recent VPS placement (Strata @ 2.5) Procedures Procedure Performed: 09/20/2016 1) Bilateral [place] Holes for evacuation of chronic subdural hematomas Brief Hospital Course Henrique Casas is a 46 y.o. 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 Imaging demonstrated low-density subdural fluid collections. This w as initially treated with increasing her strata valve to 2.5. Clinically, she was at her mitra rologic baseline and denied headaches. Subsequent imaging did not demonstrate improvement. I t was determined that the SDH could be contributing to her Right sided weakness/spasticity a nd should be treated before any decision is made about a baclofen trial. The patient was the n indicated for surgical intervention. The patient was admitted to [facility] on 09/20/2016 and underwent Bilateral [place] Holes for evacuat ion of chronic subdural hematomas The inpatient stay related to this procedure and took an uncomplicated perioperative course and the patient was followed closely by the attending pro viders, resident providers, and medical/nursing staff. Post operatively, the patient was admitted to the NSICU for close neurologic and hemodynami c monitoring. A head CT revealed expected post op changes. When stable, the patient was tra nsferred to the jacob for ongoing convalescent care. The patient made appropriate gains towar d activity and functional goals while an inpatient. While on the hospital floor, the patient tolerated oral intake sufficient to maintain nutri tion and hydration. The surgical wound remained clean, dry, and intact without signs concern ing for infection. The patient was felt appropriate for discharge home on 09/24/2016, and th e patient and/or family members agree with this course of action. The patient will follow up in the [facility] Neurosurgery clinic on 10/10/[address] prior. Activity No lifting > 15 lbs x 6 weeks. Avoid repetitive bending below waist level and all strenuous activity until further notice. Ok to use arms for bed mobility, transfers and assistive dev ices. Condition on Discharge Good FOLLOW-UP You have an appointment with Ada Chang PA-C at 1:10pm on 10/10. This will be on the 8th floor at the [facility] on the [facility][Note 3] located at [address] [place] [address]. Please call [phone] if you have any questions or concerns before your appointment time. You will need to obtain a head CT prior to this appointment at 12:45pm on the 3rd floor at [facility]. PCP:REENA Gusman When: Please follow-up with your [...] Medication List CONTINUE these medications which have CHANGED or have new prescriptions Details oxyCODONE (immediate release) 5 mg oral tablet Take 1-2 tablets by mouth every six hours as needed for moderate pain or severe pain. Indications: Pain Qty: 50 tablet, Refills: 0 polyethylene glycol 17 gram oral powder in packet Mix 1 packet and take orally three times daily as needed (1st line - for no BM for 2 days). Associated Diagnoses: Subdural hematoma (HCC) senna-docusate 8.6-50 mg oral tablet Take 2 tablets by mouth two times daily. For post-oper ative constipation, discontinue for loose stool. Indications: constipation Qty: 60 tablet, Refills: 0 CONTINUE these medications which have NOT CHANGED Details acetaminophen 325 mg oral tablet Take 2 tablets by mouth every six hours as needed (pain). Not to exceed 3250 mg of acetaminophen from all products per 24 hour period. baclofen 10 mg oral tablet Take 0.5 tablets by mouth once daily at bedtime. Indications: Mu scle Spasticity of Spinal Origin Qty: 30 tablet, Refills: 0 lamoTRIgine 100 mg Oral tablet Take 100 mg by mouth two times daily. loratadine 10 mg oral tablet Take 10 mg by mouth once daily as needed (seasonal allergies). MULTIVITAMIN ORAL Take 1 tablet by mouth once daily in the morning. Wound Care: 1) Keep your incision site clean and dry. Make sure that you protect your inc ision when wearing glasses. 2) It is ok for you to shower and get your surgical incision wet, but do not submerge surg ical incision in hot tub or swimming pool. Please shampoo your hair and wash your incision when you are cleared to do so. It is important that dried blood be cleared from your incisi on. You should pat your incision dry with a clean towel. 3) Please avoid placing creams or ointments directly on the incision even though it may it ch. 4) Your sutures are absorbable and will come out on their own. Special Instructions/Tests: N/A Condition On Discharge: Good Vital Signs at discharge as appropriate: BP: 105/65 (09/24/16742) Pulse: 82 (09/24/16742) Resp: 16 (742) Weight: 95.6 kg (210 lb 12.2 oz) (09/21/16 0300) Discharge Patient To: Home Does patient have a planned readmission: No Discharge Summary Completed?: Yes. 09/24/2016 Discharging Provider: Dimple Sage PA-C Date Completed: 09/24/2016 Time Completed: 10:50 AM Discharging Attending: Nolvia Delgado MD [place] [id number] [place] [address] documented in this encounter Medications at Time [...] documented as of this encounter Progress Notes Dimple Sage PA-C - 09/24/2016 10:33 AM PDTFormatting of this note might be different f rom the original. Neurosurgery Progress Note Hospital Day:4 Author; Dimple Sage PA-C Attending Physician: Nolvia Delgado MD Interval Hx: -Patient denies any RAHMAN or incisional pain. No complaints this AM. [facility] -Large BM yesterday Last Vitals: BP 105/65 | Pulse 82 | Temp 36.6 C (97.9 F) | RR 16 | Ht 1.702 m (5' 7") | Wt 95.6 kg (210 lb 12.2 oz) | SpO2 97% | BMI 33.01 kg/(m^2) O2 Delivery Device: None (room air) (09/24/16 0743) 24 Hour Vital Min/Max: Systolic (24hrs), Av , Min:105 , Max:138 Diastolic (24hrs), Av, Min:60, Max:73Puls e Min: 82 Max: 103 Temp Min: 36.3 C (97.3 F) Max: 36.9 C (98.4 F) Resp Min: 16 Max: 18 SpO2 Min: 90 % Max: 97 % Intake/Output Summary (Last 24 hours) at 09/24/16 1033 Last data filed at 09/24/16 0800 Gross per 24 hour Intake 2081 ml Output 1050 ml Net 1031 ml Exam: Alert, oriented. Speech clear, fluent. Gaze conjugate. LT sensation intact. Face symmetric. Tongue midline. Crani incisions: flat, dry, intact. Absorbable sutures. Sensation: LT sensation intact in all 4 extremities Motor: Tri Bi Tire Beader Maker HF KF KE APF ADF Left 5 5 5 5 5 5 5 5 Right 4 4 4 4 4 4 4 4 Labs: CBC with diff last 72 hours (or 3 results) Recent Labs 09/22/16 0559 09/23/16 0628 WBC 16.42* 13.49* HB 13.2 13.1 HCT 39.4 39.3 PLT 348 368 Chemistries: Last 72 Hours (or 3 results): Recent Labs 09/22/16 0559 09/22/16 0753 09/23/16 0628 NA 140 -- 141 K 3.6 -- 3.7 CL 107 -- 109* BICARB 26 -- 26 BUN 7 -- 10 CR 0.65 -- 0.55* GLU 88 102* 90 CA 8.6 -- 8.6 PO4 1.9* -- 2.7 Current Medications: acetaminophen (TYLENOL) tablet 325-650 mg, 325-650 mg, oral, Q6H PRN OR [DISCONTINUED] acetaminophen (TYLENOL) tablet 325-650 mg, 325-650 mg, feeding tube, Q6H PRN OR [DISCONT INUED] acetaminophen (TYLENOL) suppository 325-650 mg, 325-650 mg, rectal, Q6H PRN baclofen (LIORESAL) tablet 5 mg, 5 mg, oral, DAILY bisacodyl (DULCOLAX) suppository 10 mg, 10 mg, rectal, DAILY PRN bisacodyl EC (DULCOLAX) tablet 5 mg, 5 mg, oral, DAILY enoxaparin (LOVENOX) injection 40 mg, 40 mg, subcutaneous, QPM lamoTRIgine (LAMICTAL) tablet 100 mg, 100 mg, oral, BID [COMPLETED] ondansetron (ZOFRAN) injection 4 mg, 4 mg, intravenous, Q8H FOLLOWED BY [EX PIRED] ondansetron (ZOFRAN) injection 4 mg, 4 mg, intravenous, Q8H PRN FOLLOWED BY ondan setron (ZOFRAN) injection 4 mg, 4 mg, intravenous, Q12H PRN oxyCODONE (immediate release) (ROXICODONE) tablet 5-15 mg, 5-15 mg, oral, Q3H PRN OR [D ISCONTINUED] oxyCODONE (immediate release) (ROXICODONE) tablet 5-15 mg, 5-15 mg, feeding tub e, Q3H PRN polyethylene glycol (MIRALAX) packet 17 g, 17 g, oral, DAILY polyethylene glycol (MIRALAX) packet 34 g, 34 g, oral, TID PRN promethazine (PHENERGAN) suppository 25 mg, 25 mg, rectal, Q6H PRN senna-docusate (SENOKOT S) 8.6-50 mg 2 tablet, 2 tablet, oral, BID Impression: 46YOF with PMH of toxoplasmosis, viral meningitis, aqueductal stenosis and shunted HCP (R o ccipital VPS, strata 2.5) who presented with increasing spasticity in clinic. Imaging demons trated low-density subdural fluid collections. Patient was admitted for B aime hole drainage of subdural hematomas on 09/20/16 possibly related to over-shunting. Plan: Neuro: Neuro at baseline. Pain control with APAP; patient has not used Oxycodone recently. Cont home baclofen 5mg daily for spasticity. Cont home Lamictal 100mg BID. HEENT: Routine wound care. Okay to shower/shampoo daily. CV: HD stable. Pulm: IS, cough/deep breath GI/diet: Regular diet. +Anti-emetics. LBMs on 09/23 and 09/24. Bowel regimen prn. : Voiding at baseline. Musculoskeletal/skin: Routine decubitus ulcer prevention ID/Heme: Mild leukocytosis at 13 on 09/23, down from 16 the day prior. Afebrile. DVT ppx: SCDs while in bed, on ppx Lovenox qHS. Dispo: Home today with OP PT Dimple Sage PA-C [facility] [address] [address] [place] [address] Kristen Cazares PA - 09/23/2016 8:22 AM PDT . NEUROSURGERY INPATIENT PROGRESS NOTE Hospital Day:3 Author; Kristen Chang PA-C Attending Physician: Nolvia Delgado MD Interval Hx: -No events overnight. -Denies pain. Tolerating po intake, mobilizing, voiding. -+ Flatus, no BM yet, denies abd pain, n/v. Physical Exam: Last Vitals: BP 111/64 | Pulse 86 | Temp 37 C (98.6 F) | RR 16 | Ht 1.702 m (5' 7") | W t 95.6 kg (210 lb 12.2 oz) | SpO2 91% | BMI 33.01 kg/(m^2) O2 Delivery Device: None (room ai r) (09/23/16 8856) 24 Hour Vital Min/Max: Systolic (24hrs), Av , Min:104 , Max:123 Diastolic (24hrs), Av, Min:56, Max:75 Pulse Min: 86 Max: 102 Temp Min: 37 C (98.6 F) Max: 38 C (100.4 F) Resp Min: 16 Max: 16 SpO2 Min: 90 % Max: 93 % Intake/Output Summary (Last 24 hours) at 09/23/16 0822 Last data filed at 09/23/16 0630 Gross per 24 hour Intake 260 ml Output 1450 ml Net -1190 ml Results for HENRIQUE CASAS ( ) as of 09/23/2016 08:23 Ref. Range 09/23/2016 06:28 SODIUM, PLASMA (LAB) Latest Ref Range: 136 - 145 mmol/L 141 POTASSIUM, PLASMA (LAB) Latest Ref Range: 3.4 - 5.0 mmol/L 3.7 POTASSIUM CMNT Unknown No Hemo CHLORIDE, PLASMA (LAB) Latest Ref Range: 97 - 108 mmol/L 109 (H) TOTAL CO2, PLASMA (LAB) Latest Ref Range: 21 - 32 mmol/L 26 ANION GAP Latest Units: mmol/L 6 ANION GAP(ALB CORRECTED) Latest Ref Range: 4 - 11 mmol/L 9 BUN, PLASMA (LAB) Latest Ref Range: 6 - 20 mg/dL 10 CREATININE PLASMA (LAB) Latest Ref Range: 0.60 - 1.10 mg/dL 0.55 (L) EGFR - DOMINICAN Latest Ref Range: >60 mL/min >60 EGFR NON -DOMINICAN Latest Ref Range: >60 mL/min >60 GLUCOSE, PLASMA (LAB) Latest Ref Range: 60 - 99 mg/dL 90 CALCIUM, PLASMA (LAB) Latest Ref Range: 8.6 - 10.2 mg/dL 8.6 CALCIUM(ALB CORRECTED) Latest Ref Range: 8.6 - 10.2 mg/dL 9.6 PHOSPHORUS, PLASMA (LAB) Latest Ref Range: 2.4 - 4.7 mg/dL 2.7 ALBUMIN, PLASMA (LAB) Latest Ref Range: 3.5 - 4.7 g/dL 2.7 (L) WHITE CELL COUNT Latest Ref Range: 3.50 - 10.80 K/cu mm 13.49 (H) RED CELL COUNT Latest Ref Range: 4.00 - 5.20 M/cu mm 4.20 HEMOGLOBIN Latest Ref Range: 12.0 - 16.0 g/dL 13.1 HEMATOCRIT Latest Ref Range: 36.0 - 46.0 % 39.3 MCV Latest Ref Range: 80.0 - 96.0 fL 93.6 MCHC Latest Ref Range: 33.0 - 35.5 g/dL 33.3 RDW SD Latest Ref Range: 35.1 - 46.3 fL 44.1 PLATELET COUNT Latest Ref Range: 150 - 400 K/cu mm 368 MPV Latest Ref Range: 9.7 - 12.3 fL 8.8 (L) NRBC% Latest Ref Range: 0.0 - 0.3 % 0.0 NRBC# Latest Ref Range: 0.00 - 0.02 K/cu mm 0.00 INR Latest Ref Range: 0.90 - 1.20 INR 1.15 General: 46 y/o Female NAD Incisions: scalp-C/D/I, no erythema-vicryl sutures Neuro: Alert and oriented x 3, PERRL, EOMI, face symmetric, tongue midline Motor: MOTOR SCORE LEFT* RIGHT* C5 (Shoulder Abduct) 5 4 C6 (Elbow Flex) 5 4 C7 (Elbow Ext) 5 4 C8 (Wrist Ext) 5 4 T1 (Pinky Abd) 5 4 L2 (Hip Flex) 5 4 L3 (Knee Ext) 5 4 L4 (Dorsiflexion) 5 4 L5 (EHL) 5 4 S1 (Plantar Flex) 5 4 Mild Spasticity Sensation: Light Touch: intact Ext: no edema Psychiatric: Appropriate and cooperative Assessment/Plan: Henrique Casas is a 46 y.o. 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 Imaging demonstrated low-density subdural fluid collecti ons. Pt. admitted for B aime hole drainage of subdural hematomas on 09/20/16 possibly related to over-shunting. Neurological: Neuro at baseline. Analgesia- pain control appears adequate. Monitor closely . Cardiovascular: HD stable. No active issues. Pulm: No active issues. HEENT: No active issues. GI: oral diet; anti-emetics prn; GI ppx, aggressive bowel regimen-goal for BM today. / Renal: voiding independently ID/HO: Afebrile. Leukocytosis-down trending, likely reactive Endocrine: No active issues. No need for ISS presently. Musculoskeletal / Skin: Routine decubitus ulcer prevention. Wound care: Wound care per protocol. May shower and wash hair today. Sutures are absorbable . Rehab: PT evaluation today DVT prophylaxis: mobilize out of bed; SCDs, on ppx lovenox. Disposition: Pending clinical course. Placement indicated for further Rehabilitation. Dis cussed with CM. Awaiting SNF placement. Outpatient FU in Neurosurgery clinic 3 weeks post op with repeat Head CT prior. Kristen Chang PA-C [facility] [address] [facility] [address] [place] [id number] MEDICATIONS Current Facility-Administered Medications Medication acetaminophen (TYLENOL) tablet 325-650 mg baclofen (LIORESAL) tablet 5 mg bisacodyl (DULCOLAX) suppository 10 mg enoxaparin (LOVENOX) injection 40 mg lamoTRIgine (LAMICTAL) tablet 100 mg ondansetron (ZOFRAN) injection 4 mg Followed by [START ON 09/24/2016] ondansetron (ZOFRAN) injection 4 mg oxyCODONE (immediate release) (ROXICODONE) tablet 5-15 mg polyethylene glycol (MIRALAX) packet 17 g polyethylene glycol (MIRALAX) packet 34 g promethazine (PHENERGAN) suppository 25 mg senna-docusate (SENOKOT S) 8.6-50 mg 2 tablet Heidy Caicedo MD,MPH - 09/22/2016 8:28 AM PDT . NEUROSURGERY PROGRESS NOTE 09/22/2016 Hospital Day #: 2 Attending: Nolvia Delgado MD Interval Events: ROSEY overnight, no complaints this a.m. Ambulation: has not walked yet Urination: OK Bowels: OK Eating: OK Pain Control: OK Objective: Last Vitals: BP 117/78 | Pulse 101 | Temp 36.7 C (98.1 F) | RR 14 | Ht 1.702 m (5' 7") | Wt 95.6 kg (210 lb 12.2 oz) | SpO2 93% | BMI 33.01 kg/(m^2) 24 Hour Vital Min/Max: Systolic (24hrs), Av , Min:113 , Max:158 Diastolic (24hrs), Av, Min:62, Max:91 Pulse Min: 101 Max: 117 Temp Min: 36.2 C (97.2 F) Max: 37.4 C (99.4 F) Resp Min: 14 Max: 21 SpO2 Min: 93 % Max: 94 % Intake/Output Summary (Last 24 hours) at 09/22/16 0828 Last data filed at 09/22/16 0100 Gross per 24 hour Intake 905 ml Output 695 ml Net 210 ml Physical Exam: Awake, alert, oriented to self, time, place, situation Following commands briskly PERRL EOMI Face symmetric Tongue midline Strength: No pronator drift RUE: 4/5 HG/B/T, spastic LUE: 5/5 HG/B/T RLE: 4/5 HF/KE/DF/PF, spastic LLE 5/5 HF/KE/DF/PF Incision c/d/i. No surrounding erythema, swelling or drainage. Labs: Lab Results Component Value Date/Time NA 140 09/22/2016 05:59 AM K 3.6 09/22/2016 05:59 AM CR 0.65 09/22/2016 05:59 AM HCT 39.4 09/22/2016 05:59 AM WBC 16.42 (H) 09/22/2016 05:59 AM PLT 348 09/22/2016 05:59 AM ] URINE CULTURE [facility] (no units) Date Value 07/02/2016 See Cx Results (A) CULT, URINE SCREEN (no units) Date Value 07/02/2016 Positive (A) Current Facility-Administered Medications Medication Dose Route Frequency acetaminophen (TYLENOL) tablet 325-650 mg 325-650 mg oral Q6H PRN Or acetaminophen (TYLENOL) tablet 325-650 mg 325-650 mg feeding tube Q6H PRN Or acetaminophen (TYLENOL) suppository 325-650 mg 325-650 mg rectal Q6H PRN baclofen (LIORESAL) tablet 5 mg 5 mg oral DAILY bisacodyl (DULCOLAX) suppository 10 mg 10 mg rectal DAILY PRN lamoTRIgine (LAMICTAL) tablet 100 mg 100 mg oral BID NaCl 0.9%-KCl 20 mEq/L IV infusion intravenous CONTINUOUS ondansetron (ZOFRAN) injection 4 mg 4 mg intravenous Q8H PRN Followed by [START ON 09/24/2016] ondansetron (ZOFRAN) injection 4 mg 4 mg intravenous Q12H PRN oxyCODONE (immediate release) (ROXICODONE) tablet 5-15 mg 5-15 mg oral Q3H PRN Or oxyCODONE (immediate release) (ROXICODONE) tablet 5-15 mg 5-15 mg feeding tube Q3H PRN polyethylene glycol (MIRALAX) packet 17 g 17 g oral DAILY polyethylene glycol (MIRALAX) packet 34 g 34 g oral TID PRN promethazine (PHENERGAN) suppository 25 mg 25 mg rectal Q6H PRN senna-docusate (SENOKOT S) 8.6-50 mg 2 tablet 2 tablet oral BID Imaging: Ct Head Wo Contrast Result Date: 09/20/2016 EXAM: CT head without contrast HISTORY: Evaluation for hemorrhage status post evacuation of subdural hematomas COMPARISON: 09/12/2016 TECHNIQUE: CT of the head without contrast. FINDINGS: Brain: Right occipital approach ventricular peritoneal shunt remains positioned within the body of the left lateral ventricle as before. Size of the ventricular system is not signifi cantly changed to prior imaging. Postsurgical changes of bilateral aime holes with evacuati on of subdural fluid is noted with associated anterior pneumocephalus. Mildly decreased but persistent subdural fluid remains. Linear areas of extra-axial hyperdensity are not apprec iably changed. No midline shift. No findings of acute intracranial hemorrhage or ischemia. Soft tissues: Postsurgical changes. Skull and skull base: No fractures . Mastoids and middl e ears are unremarkable. Face/orbits: Visualized portions are unremarkable. Paranasal sinuse s: Visualized portions are unremarkable. IMPRESSION: Postsurgical changes of bilateral aime holes with mildly decreased subdural fluid. Right occipital approach ventricular peritoneal shunt catheter remains in position with no appreciable change in the ventricular system. I have personally reviewed the images and, if necessary, edited the report. I agree with t he report as now presented. ASSESSMENT: Henrique Casas is a 46 y.o. 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 Her recovery has been uncomplicated. PLAN: Neurological: - Continue acute care therapies; pain control; monitor for acute neurologic changes HEENT: routine wound care Cardiovascular: - BP and HR stable Respiratory: IS, cough/deep breathing, O2 prn. Sats wnl on RA. GI: Diet: regular; bowel regimen / Renal: 24-hour I/O goal: euvolemic; Electrolytes wnl. ID/HO: AF, WBC 16.42 from 12.77 yesterday; likely reactive Endocrine: CBG within normal limits without insulin Musculoskeletal / Skin: No active issues, Routine decubitus ulcer prevention. PT/OT DVT prophylaxis: SCDs while in bed, prophylactic lovenox Disposition: pending clinical course Heidy Middleton M.D., M.P.H. Neurological Surgery Resident PGY-1 Pager: [phone] Cindy Rangel [facility] - 09/21/2016 4:20 PM PDT . Neuroscience Intensive Care Unit Team Progress Note NSICU ASSIGNED #[id number] ICU Admission Reason Most Recent Value ICU Admission reason Post-operative Hemodynamic and Neuromonitoring filed at 09/20/2016 16 56 Admission dx: Hemorrhage, subdural, nontraumatic (HCC) 1 Days in ICU 1 Days in Hospital Abbreviated HPI / Daily Assessment Ms. Casas is a 46 y/o F. PMHx significant for toxoplasmosis, viral meningitis, aq ueductal stenosis, rare seizures, and shunted hydrocephalus (R occipital VPS, strata 1 => 2. 5 in August 2016 due to possible over-drainage and worsening chronic SDH). She was initially t rialed on oral baclofen for her spasticity, and improved her overall functional status prior to the admission in August for worsening SDH. She was discharged stable, however developed wo rsening RUE and RLE spasticity, preventing her from participating in her ADLs such as eating , toileting, or ambulating. She was being considered for a possible baclofen pump, but due t o some probability of her limitations being secondary to the SDH, decision was made to perfo rm b/l SDH Evacuation via aime holes. NSICU s/p bilateral SDH evac with aime holes on 09/20. 24 Hour events Admitted to NSICU. S/p bilateral SDH evac with aime holes. Transfer to acute floor is pending Active Diagnosis with Assessment & Plan Priority Class POA Nervous Acute on chronic intracranial subdural hematoma (HCC) 1 Yes Overview Patient had a known small chronic SDH (stable on CT 07/28/2016). On 08/17, noted to be large r (6cm) secondary to possible overdrainage from VPS. Strata Valve was increased to 2.5 Repea t imaging was stable. Current Assessment & Plan S/p AIME Hole placement b/l on 09/20. NSICU Goals: Neurochecks Q1H SBP<160 Na: Eunatremia, Fluid: Euvolemia Will keep flat x24 hours (6PM on 09/21), with mobilization to sit upright for ADLs/nutrition. Hydrocephalus 2 Yes Overview Congenital, 2/2 toxoplasmosis and viral meningitis. Multiple EVD placements, now s/p R occipital [employer] REP shunt placement in October [address] Delgado and team. Currently adjuste d to Strata 2.5 due to possible over-drainage issues leading to SDH. Current Assessment & Plan No acute intervention needed. Seizure disorder (HCC) Yes Overview Seizure disorder (unclear characterization, unknown last sz). Has a Vagal nerve stimulato r since 2000, which is functional. Concurrently on lamotrigine. Current Assessment & Plan C/w lamotrigine 100 BID Other Spasticity Yes Overview 2/2 cerebral palsy. Moderately well controlled with home baclofen. Has been discussing in trathecal baclofen pump trial with neurosurgery. Will re-evaluate pending improvement s/p SD H Drainage. Current Assessment & Plan c/w Baclofen 5mg Daily (confirmed with her father- administrated in AM @ home) Uptitrate PRN in future. Blindness and low vision Yes Overview Near sighted vision intact Far sighted legal blindness Current Assessment & Plan Outpatient management, no active issues. At risk for electrolyte imbalance Yes At risk for constipation Yes At risk for deep venous thrombosis Yes Current Assessment & Plan SCDS only. No chemical prophylaxis in the acute post-operative period Code Status Code Status Full Code The Advanced Care Note for this patient can be found under the notes tab in chart review. Constitutional: She appears well-developed HENT: Ears: Right : external ear normal Left: external ear normal Nose: nose normal Neck: JVD not present no tracheal deviation present Cardiovascular: regular rhythm, normal heart sounds and intact distal pulses no murmur hear d.Exam reveals no friction rub and no gallop.Mild tachycardia Pulmonary: effort normal and breath sounds normal. Abdominal: Abdomen is soft. bowel sounds are normal. Musculoskeletal: Spastic RUE Skin: Skin is warm and dry. Psychiatric: She has a normal mood and affect. normal thought content and judgment normal. Her behavior is normal. vitals and nursing note reviewed. Physical exam Comments AAOx self, place, time; Speech fluent, answers appropriately PERRL, mildly dysconjugate gaze, EOMI V1-V3 symmetric, unable to assess visual cervantes (pt could not follow the instructions). Face symmetric, TML. RUE 3/5 spastic movements but able to overcome gravity. RLE, LUE, LLE 4/5 . NSICU treatment team members Provider Role Specialty Ipt Neurosurgery #[id number] Treatment Team Neurological Surgery Ipt Critical Care Nsicu #[id number] Treatment Team -- Patient Lines/Drains/Airways Status Active Lines, Drains and Airways Name: Placement date: Placement time: Site: Days: Peripheral IV Left Anterior Hand 22 g 09/20/16 1438 Hand 1 Peripheral IV Right Medial Wrist 18 g 09/20/16 1602 Wrist 1 Wound Right Anterior leg Abrasion 08/17/16 1552 leg 35 Wound Left calf Abrasion 08/17/16 1555 calf 35 Incision Right head- parietal 09/20/16 1612 1 Incision Right head- occipital 09/20/16 1622 less than 1 Incision Left head- parietal 09/20/16 1657 less than 1 Incision Left head- parietal 09/20/16 1658 less than 1 Urethral Catheter Temp-probe Navarro 16 Fr. 09/20/16 1545 Temp-probe Navarro 1 Quality section Navarro necessity reviewed: to be discontinued later today when supine position requirements are liberated FAST HUG Feeding: regular diet Analgesia: Acetaminophen, oxycodone Sedation: none Thromboprophylaxis: SCDs only Head of Bed: keep flat until 1800 Ulcer Prophylaxis: not indicated Glycemic Control: not indicated I have spent a total of 40 Minutes independently in the direct care and management of th is patient.Time is independent of any time spent teaching or performing any separately billa ble procedures. I reviewed the documented findings, all data and the recent imaging availabl e. Date of Service: 09/21/2016 Cindy Flores NP [facility] DEPARTMENT: ANE ICU NEURO Place of Service:- Inpatient CSN: [id number] Suggested Modifier: None Suggested CPT: TO YARD STOCKER Cindy Flores NP Author:Cindy Flores NP [address] [place] [address] Sujata Webster MD - 09/21/2016 12:21 PM PDTFormatting of this note might be different f rom the original. . 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 On exam: AA and Ox4, dysconjugate gaze, baseline R weakness, mild spasticity, L UE 4/5, L L E 4/5, RLE 3/5, R UE 2/5, difficulty with fine motor movements A/Plan: Close neuro monitoring, flat for 24hr till 6pm today for pneumocephalus, ok with HOB up for meals. Acute pain control. Cont baclofen for spasticity, is on very low dose 5 mg baclofen. Resp: bronchial hygiene, IS CV: maintain SBP<160 mmHg F/u UOP and renal function. Dc navarro ADAT Maintain normonatremia, euvolemia. Transition to intermediate level of care. Code Status Updated to: FULL vitals reviewed. Hospital Problems Priority POA Nervous Acute on chronic intracranial subdural hematoma (HCC) 1 Yes Hydrocephalus 2 Yes Seizure disorder (HCC) Yes Other Spasticity Yes Blindness and low vision Yes At risk for electrolyte imbalance Yes At risk for constipation Yes At risk for deep venous thrombosis Yes NSICU treatment team members Provider Role Specialty Ipt Neurosurgery #[id number] Treatment Team Neurological Surgery Ipt Critical Care Nsicu #[id number] Treatment Team -- Code Status Code Status Full Code The Advanced Care Note for this patient can be found under the notes tab in chart review. Quality section Navarro necessity reviewed: Plan to DC today I have spent a total of 32 minutes in the direct care and management of this patient indepe ndent of any time spent teaching or performing any separately billable procedures. I reviewe d the documented findings, all data and the recent imaging available. Greater than 50% of th is time was spent on counseling and coordination of care.Seen with PA/CREPE SOLE SCOURER Ms. Flores. Please s ee their note for details. I reviewed the documented findings, all data and the recent imagi ng available. Date of Service: 09/21/2016 [facility] DEPARTMENT: ANE ICU NEURO Place of Service:- Inpatient CSN: [id number] Suggested Modifier: GC - Resident Involved Suggested CPT: TO YARD STOCKER Author:Sujata Saba MD [address] [address] [place] [address]Ejmnmhtzksniou signed by Sujata Saba MD at 09/21/2016 12:22 PM PDTBebeto Mack MD - 09/21/2016 9:29 AM PDTFormatting of this note might be differ ent from the original. NEUROSURGERY PROGRESS NOTE Hospital Day #: 1 Attending: Nolvia Delgado MD Interval Events: OR yest Doing well w/o complaints, denies RAHMAN Objective: Last Vitals: BP 135/91 | Pulse 117 | Temp 36.9 C (98.4 F) | RR 20 | Ht 1.702 m (5' 7") | Wt 95.6 kg (210 lb 12.2 oz) | SpO2 94% | BMI 33.01 kg/(m^2) 24 Hour Vital Min/Max: Systolic (24hrs), Av , Min:110 , Max:153 Diastolic (24hrs), Av, Min:63, Max:95 Pulse Min: 65 Max: 108 Temp Min: 36 C (96.8 F) Max: 36.9 C (98.4 F) Resp Min: 11 Max: 23 SpO2 Min: 91 % Max: 100 % Intake/Output Summary (Last 24 hours) at 09/21/16 09 Last data filed at 09/21/16 0900 Gross per 24 hour Intake 4164.17 ml Output 3055 ml Net 1109.17 ml Last 24 hour min/max Temp: 36.9 C (98.4 F) Temp Min: 36 C (96.8 F) Max: 36.9 C (98.4 F) Pulse: 117 Pulse Min: 65 Max: 117 Resp: 20 Resp Min: 11 Max: 23 BP: (!) 135/91 BP Min: 110/68 Max: 153/89 SpO2: 94 % SpO2 Min: 91 % Max: 100 % Body mass index is 33.01 kg/(m^2). I/O/Drains Current Shift I/O/Drains Last 3 Completed Shifts 09/21 700 - 09/21 1500 In: 210 [I.V.:110] Out: 60 [Urine:60] 09/20 700 - 09/21 0700 In: 3954.2 [P.O.:200; I.V.:3654.2] Out: 3055 [Urine:2905] @DRAINICPVALUESHEIT@ Physical Exam: Awake, alert, oriented to self, time, place, situation PERRL EOMI - nystagmus present Face symmetric Tongue midline BUE 5/5 RLE 5/5, 0/5 DF/PF - baseline LLE: 5/5 Incisions c/d/i. No surrounding erythema, swelling or drainage. Labs: Complete Blood Count/Coags Recent Labs 08/21/16 0633 08/22/16 0650 09/21/16 0034 WBC 12.95* 13.67* 12.77* HB 15.1 15.2 13.2 HCT 44.4 44.2 39.1 PLT 275 296 353 Invalid input(s): INR CSF Results No results for input(s): WBCCSF, RBCCSF, GLUCOSECSF, PROTEINCSF in the last 8640 hours. Chemistry Recent Labs 08/20/16 0642 08/21/16 0633 08/22/16 0650 09/20/16 1507 09/20/16 1803 09/21/16 0034 NA 140 138 136 -- -- 142 K 4.1 4.1 4.3 -- -- 4.5 CL 108 108 104 -- -- 110* BICARB 25 22 22 -- -- 24 BUN 12 10 11 -- -- 6 CR 0.77 0.59* 0.58* -- -- 0.54* GLU 93 98 95 83 101* 109* CA 8.9 8.7 8.7 -- -- 8.5* MG 2.3 2.2 2.3 -- -- -- PO4 2.5 2.5 2.5 -- -- 2.4 Culture Results URINE CULTURE [facility] (no units) Date Value 07/02/2016 See Cx Results (A) CULT, URINE SCREEN (no units) Date Value 07/02/2016 Positive (A) Current Facility-Administered Medications Medication Dose Route Frequency acetaminophen (TYLENOL) tablet 325-650 mg 325-650 mg oral Q6H PRN Or acetaminophen (TYLENOL) tablet 325-650 mg 325-650 mg feeding tube Q6H PRN Or acetaminophen (TYLENOL) suppository 325-650 mg 325-650 mg rectal Q6H PRN baclofen (LIORESAL) tablet 5 mg 5 mg oral HS bisacodyl (DULCOLAX) suppository 10 mg 10 mg rectal DAILY PRN ceFAZolin IV 2 grams in NS (RTU) 2 g intravenous Q8H lamoTRIgine (LAMICTAL) tablet 100 mg 100 mg oral BID NaCl 0.9%-KCl 20 mEq/L IV infusion intravenous CONTINUOUS ondansetron (ZOFRAN) injection 4 mg 4 mg intravenous Q8H Followed by [START ON 09/22/2016] ondansetron (ZOFRAN) injection 4 mg 4 mg intravenous Q8H PRN Followed by [START ON 09/24/2016] ondansetron (ZOFRAN) injection 4 mg 4 mg intravenous Q12H PRN oxyCODONE (immediate release) (ROXICODONE) tablet 5-15 mg 5-15 mg oral Q3H PRN Or oxyCODONE (immediate release) (ROXICODONE) tablet 5-15 mg 5-15 mg feeding tube Q3H PRN polyethylene glycol (MIRALAX) packet 17 g 17 g oral DAILY polyethylene glycol (MIRALAX) packet 34 g 34 g oral TID PRN promethazine (PHENERGAN) suppository 25 mg 25 mg rectal Q6H PRN senna-docusate (SENOKOT S) 8.6-50 mg 2 tablet 2 tablet oral BID Imaging: IMPRESSION: Postsurgical changes of bilateral aime holes with mildly decreased subdural fluid. Right occipital approach ventricular peritoneal shunt catheter remains in position with no appreciable change in the ventricular system. Assessment: Henrique Casas is a 46 y.o. 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 She is recovering well. Plan: -freq neuro checks -flat until 6pm -consider transfer in PM Please page adult resident contracting support specialist [phone] with questions Bebeto Sanders MD Neurological Surgery PGY2 Osvaldo Marcos M D - 09/20/2016 6:17 PM PDT NEUROSURGERY POST OPERATIVE CHECK Author: Osvaldo Barclay MD Date: 09/20/16 PROCEDURE: Bilateral Aime Holes for evacuation of chronic subdural hematomas S: Waking up in PACU, has headache VITAL SIGNS: Last Vitals: BP 133/84 | Pulse 79 | Temp 36 C (96.8 F) | RR 16 | Ht 1.702 m (5' 7") | W t 91.5 kg (201 lb 11.5 oz) | SpO2 91% | BMI 31.59 kg/(m^2) 24 Hour Vital Min/Max: Systolic (24hrs), Av , Min:133 , Max:136 Diastolic (24hrs), Av, Min:84, Max:95 Pulse Min: 65 Max: 79 Temp Min: 36 C (96.8 F) Max: 36.8 C (98.2 F) Resp Min: 16 Max: 16 SpO2 Min: 91 % Max: 99 % Intake/Output Summary (Last 24 hours) at 09/20/16 1817 Last data filed at 09/20/16 1809 Gross per 24 hour Intake 2910 ml Output 305 ml Net 2605 ml PHYSICAL EXAM FINDINGS: A&O to name, date, location; following commands, answering appropriately PERRL, EOMI, Conjugate gaze Face motor grossly intact; eyes close fully Tongue midline 5/5 strength Bilateral UEs & LEs, Incision covered with dressing - C/D/I. Flat. No fluid collection. No fluctuance. No drai nage/CSF leak noted POST OPERATIVE IMAGING: Head CT to be obtained A/P: Neurologically stable. Continue care: - Neuro checks q 1 hour - Keep incision and dressings C/D/I. - Maintain adequate analgesia with goal RASS 0 - SBP 100-160 - ADAT - Utilize bowel regimen for goal 1 BM per 24 hours - SCDs while in bed Osvaldo Barclay MD Neurosurgery, PGY-2 On-call resident pager [phone] 6:17 PM 09/20/2016 Nata Golden M D - 09/20/2016 2:11 PM PDTHistory and Physical Update 09/20/2016 Patient's history and physical has been reviewed with patient. There have been no changes s chnadni last seen by neurosurgery team. Proceed with planned operation. Patient is blind and c annot write. Consent obtained with [place] [id number] Chief Resident Neurological Surgery documented in thi s encounter Plan of Treatment +--------+---------+ + + + | Date | Type | Specialty | Care Team | Description | +--------+---------+ + + + | 11/24/ | Office | Neurological Surgery | Nolvia Delgado, | | | 2019 | Visit | | [address] | | | | | | [place], [place] | | | | | | [address] | | | | | | [phone] | | | | | | | | +--------+---------+ + + + documented as of this encounter Procedures + +--------+ + + + | Procedure Name | Priori | Date/Time | Associated Diagnosis | Comments | | | ty | | | | + +--------+ + + + | OPERATION RECORD | | 09/25/2016 | | Results for this | | | | 9:35 PM | | procedure are in the | | | | PDT | | results section. | + +--------+ + + + | CBC (HEMOGRAM) ONLY | Urgent | 09/23/2016 | | Results for this | | | | 6:28 AM | | procedure are in the | | | | PDT | | results section. | + +--------+ + + + | INR | Urgent | 09/23/2016 | | Results for this | | | | 6:28 AM | | procedure are in the | | | | PDT | | results section. | + +--------+ + + + | RENAL FUNCTION SET | Urgent | 09/23/2016 | | Results for this | | (NA,K,CL,CO2,BUN,CRE | | 6:28 AM | | procedure are in the | | AT,GLUC,CA,PHOS,ALB | | PDT | | results section. | | ) | | | | | + +--------+ + + + | CBC ONLY | Urgent | 09/23/2016 | | Results for this | | | | 6:28 AM | | procedure are in the | | | | PDT | | results section. | + +--------+ + + + | CAPILLARY BLOOD | Routin | 09/22/2016 | Subdural hematoma | Results for this | | GLUCOSE (NO CHG), | e | 7:53 AM | (HCC) | procedure are in the | | POC | | PDT | | results section. | + +--------+ + + + | CBC (HEMOGRAM) ONLY | Urgent | 09/22/2016 | | Results for this | | | | 5:59 AM | | procedure are in the | | | | PDT | | results section. | + +--------+ + + + | INR | Urgent | 09/22/2016 | | Results for this | | | | 5:59 AM | | procedure are in the | | | | PDT | | results section. | + +--------+ + + + | RENAL FUNCTION SET | Urgent | 09/22/2016 | | Results for this | | (NA,K,CL,CO2,BUN,CRE | | 5:59 AM | | procedure are in the | | AT,GLUC,CA,PHOS,ALB | | PDT | | results section. | | ) | | | | | + +--------+ + + + | CBC ONLY | Urgent | 09/22/2016 | | Results for this | | | | 5:59 AM | | procedure are in the | | | | PDT | | results section. | + +--------+ + + + | CAPILLARY BLOOD | Routin | 09/21/2016 | Subdural hematoma | Results for this | | GLUCOSE (NO CHG), | e | 7:52 PM | (HCC) | procedure are in the | | POC | | PDT | | results section. | + +--------+ + + + | CBC (HEMOGRAM) ONLY | Urgent | 09/21/2016 | | Results for this | | | | 12:34 AM | | procedure are in the | | | | PDT | | results section. | + +--------+ + + + | INR | Urgent | 09/21/2016 | | Results for this | | | | 12:34 AM | | procedure are in the | | | | PDT | | results section. | + +--------+ + + + | RENAL FUNCTION SET | Urgent | 09/21/2016 | | Results for this | | (NA,K,CL,CO2,BUN,CRE | | 12:34 AM | | procedure are in the | | AT,GLUC,CA,PHOS,ALB | | PDT | | results section. | | ) | | | | | + +--------+ + + + | CBC ONLY | Urgent | 09/21/2016 | | Results for this | | | | 12:34 AM | | procedure are in the | | | | PDT | | results section. | + +--------+ + + + | PROCEDURE NOTE | Routin | 09/20/2016 | | Results for this | | | e | 10:12 PM | | procedure are in the | | | | PDT | | results section. | + +--------+ + + + | CT HEAD WO CONTRAST | Urgent | 09/20/2016 | | Results for this | | | | 6:58 PM | | procedure are in the | | | | PDT | | results section. | + +--------+ + + + | CAPILLARY BLOOD | Routin | 09/20/2016 | Subdural hematoma | Results for this | | GLUCOSE (NO CHG), | e | 6:03 PM | (HCC) | procedure are in the | | POC | | PDT | | results section. | + +--------+ + + + | PROCEDURE NOTE | Routin | 09/20/2016 | | Results for this | | | e | 5:42 PM | | procedure are in the | | | | PDT | | results section. | + +--------+ + + + | AIME HOLE FOR | Electi | 09/20/2016 | Hemorrhage, | | | DRAINAGE OF HEMATOMA | ve | 3:14 PM | subdural, | | | | Surgic | PDT | nontraumatic (HCC) | | | | al | | | | + +--------+ + + + +---+--------+ | | | | | Specia | | | l | | | Needs | | | ICU | | | POST | | | OP-NSI | | | CU | | | TEAM | +---+--------+ + +--------+ + + + | CAPILLARY BLOOD | Routin | 09/20/2016 | Subdural hematoma | Results for this | | GLUCOSE (NO CHG), | e | 3:07 PM | (HCC) | procedure are in the | | POC | | PDT | | results section. | + +--------+ + + + | INTRAPROCEDURE | Routin | 09/20/2016 | | Results for this | | IMAGING | e | 2:27 PM | | procedure are in the | | | | PDT | | results section. | + +--------+ + + + documented in this encounter Results OPERATION RECORD (09/25/2016 9:35 PM PDT) + + | Procedure Note | + + | Nata Hinojosa MD - 09/23/2016 1:02 PM PDT Date of Service: 09/20/2016 | | Attending Surgeon:Nolvia Delgado MD Manufacturing Lab Technician(s):Nata | | MD Ashish Preoperative Diagnoses: 1.Bilateral chronic subdural | | hematomas. 2.Blindness.3.History of toxoplasmosis.4.History of recent | | ventriculoperitoneal shunt placement with STRATA valve at 2.5.Postoperative Diagnoses: | | 1.Bilateral chronic subdural hematomas. 2.Blindness.3.History of | | toxoplasmosis.4.History of recent ventriculoperitoneal shunt placement with STRATA valve | | at 2.5.Procedure Performed: Bilateral bur holes for evacuation of chronic subdural | | hematomas.Estimated Blood Loss: 50 mL.Fluids: Please see anesthesia record.Specimens: | | None.Complications: None.Drains: Navarro catheter.Disposition: To PACU, then neuro | | ICU.Findings: Bilateral bur holes were done over regions of the subdural. There was | | dark subdural blood released and it was irrigated until clear. The left side appeared | | to be under somewhat more pressure than the right side, and the right side appeared to | | be somewhat more loculated.Indications: This is a 46-year-old female with a complicated | | neurosurgical history. She has a history of toxoplasmosis, aqueductal | | stenosis that has been shunted, and recently shunted hydrocephalus after failing | | endoscopic third ventriculostomies. On clinic followup, she was noted to have large | | bilateral chronic subdural hematomas. After the shunt valve was turned down to 1.0, | | this was as first conservatively managed with increasing the shunt valve setting to 2.5. | | However, she began to experience increasingly worsening weakness and spasticity in her | | right arm and leg and difficulty with ambulating. Given these findings, she was | | therefore indicated for bilateral aime holes for drainage of the subdurals. A session | | was held with the patient, who agreed, and requested we proceed with surgery.Procedure | | In Detail: Henrique Casas was identified in the preoperative holding area and she was | | brought back to the operative suite. She was intubated under general endotracheal | | anesthesia. She was placed in a supine position on a regular table. All pressure | | points were carefully padded. We then planned out our 4 incisions, 2 on the right side | | and 2 on the left side. A small amount of hair was clipped over each of these regions. | | The right side bur holes were planned slightly more posteriorly given the location of | | her subdural. The area was then prepped and draped in usual sterile fashion using | | alcohol, ChloraPrep, and Hibiclens. A preoperative pause was done to confirm the | | correct patient, side, position, and procedure. This was all correct so we proceeded. | | She received weight appropriate dosing of Ancef preoperatively. A 10 blade was used to | | open up the right-sided incision first. Bipolar cautery and Bovie cautery were used to | | obtain meticulous hemostasis. Using a high-speed guest services drill, 2 bur holes were | | drilled on the right side and the dura was coagulated. Bone wax was applied to bony | | bleeding. The dura was then sharply opened using an 11 blade in a cruciate fashion and | | the dural leaflets were coagulated with bipolar cautery. With the anterior bur hole, | | there was a small amount of fluid although there were clearly some loculations that were | | grossly visible. After opening the posterior dural opening, there was some brisk, | | brownish tinted fluid which easily escaped. We copiously irrigated until there was | | evidence of communication between these 2 aime holes. We then proceeded with opening up | | the left-sided incisions. This was done sharply using a 10 blade. Bipolar cautery was | | used to coagulate the skin edges. A guest services drill was used to make these 2 bur | | holes, and then again the dural leaflets were coagulated, cut with an 11 blade. Dural | | leaflets were coagulated as well. After opening the dura, there was very brisk egress | | of darkish, reddish brown fluid under moderately high pressure. After irrigating, there | | was clear evidence of communication between these 2 bur holes, and also between these 2 | | bur holes and the posterior right bur hole. We irrigated copiously until there was no | | evidence, until the irrigant was clear. We then placed bur hole covers over each of | | them and affixed them using standard titanium plating system. Meticulous hemostasis was | | obtained. The galea was reapproximated using 3-0 interrupted inverted Vicryl sutures | | and the skin was closed using running 4-0 Rapide. The wounds were then cleaned and | | dried, and a layer of bacitracin, Telfa and Tegaderm was placed on top. The drapes were | | then removed. The patient was allowed to awaken from anesthesia, was extubated, and | | taken to the PACU in stable condition. All counts were correct at the end x2.Nata Wolf | | Ricky [facility] / [facility]: 09/23/2016 10:18:38DT: 09/23/2016 | | 13:02:59Job #: [id number] | |Nata Hinojosa MD | | | | | |Nolvia Delgado MD | |[facility] | | | | | | /[id number] | + + CBC (HEMOGRAM) ONLY (09/23/2016 6:28 AM PDT) + + + + + + | Component | Value | Ref Range | Performed | Pathologist | | | | | At | Signature | + + + + + + | WHITE CELL | 13.49 (H) | 3.50 - 10.80 | [facility] | | | COUNT | | K/cu mm | LABORATORY | | | | | | SERVICES, | | | | | | CORE | | + + + + + + | RED CELL | 4.20 | 4.00 - 5.20 | [facility] | | | COUNT | | M/cu mm | LABORATORY | | | | | | SERVICES, | | | | | | CORE | | + + + + + + | HEMOGLOBIN | 13.1 | 12.0 - 16.0 | [facility] | | | | | g/dL | LABORATORY | | | | | | SERVICES, | | | | | | CORE | | + + + + + + | HEMATOCRIT | 39.3 | 36.0 - 46.0 % | [facility] | | | | | | LABORATORY | | | | | | SERVICES, | | | | | | CORE | | + + + + + + | MCV | 93.6 | 80.0 - 96.0 fL | [facility] | | | | | | LABORATORY | | | | | | SERVICES, | | | | | | CORE | | + + + + + + | MCHC | 33.3 | 33.0 - 35.5 | [facility] | | | | | g/dL | LABORATORY | | | | | | SERVICES, | | | | | | CORE | | + + + + + + | RDW SD | 44.1 | 35.1 - 46.3 fL | [facility] | | | | | | LABORATORY | | | | | | SERVICES, | | | | | | CORE | | + + + + + + | PLATELET | 368 | 150 - 400 K/cu | [facility] | | | COUNT | | mm | LABORATORY | | | | | | SERVICES, | | | | | | CORE | | + + + + + + | MPV | 8.8 (L) | 9.7 - 12.3 fL | [...] | + + + + + | [facility] | [address] | [place] [address] | | | SERVICES, RYNE | [address] | | | + + + + + RENAL FUNCTION SET (NA,K,CL,CO2,BUN,CREAT,GLUC,CA,PHOS,ALB ) (09/23/2016 6:28 AM PDT) + + + + + + | Component | Value | Ref Range | Performed | Pathologist | | | | | At | Signature | + + + + + + | GLUCOSE, | 90 | 60 - 99 mg/dL | [facility] | | | PLASMA | | | LABORATORY | | | (LAB) | | | SERVICES, | | | | | | CORE | | + + + + + + | BUN, PLASMA | 10 | 6 - 20 mg/dL | [facility] | | | (LAB) | | | LABORATORY | | | | | | SERVICES, | | | | | | CORE | | + + + + + + | CREATININE | 0.55 (L) | 0.60 - 1.10 | [facility] | | | PLASMA | | mg/dL | LABORATORY | | | (LAB) | | | SERVICES, | | | | | | CORE | | + + + + + + | EGFR | >60 | >60 mL/min | [facility] | | | - | | | LABORATORY | | | DOMINICAN | | | SERVICES, | | | | | | CORE | | + + + + + + | EGFR NON | >60 | >60 mL/min | [facility] | | | -[facility] | | | LABORATORY | | | RICAN | | | SERVICES, | | | | | | CORE | | + + + + + + | SODIUM, | 141 | 136 - 145 | [facility] | | | PLASMA | | mmol/L | LABORATORY | | | (LAB) | | | SERVICES, | | | | | | CORE | | + + + + + + | POTASSIUM, | 3.7 | 3.4 - 5.0 | [facility] | | | PLASMA | | mmol/L | LABORATORY | | | (LAB) | | | SERVICES, | | | | | | CORE | | + + + + + + | CHLORIDE, | 109 (H) | 97 - 108 mmol/L | [facility] | | | PLASMA | | | LABORATORY | | | (LAB) | | | SERVICES, | | | | | | CORE | | + + + + + + | TOTAL CO2, | 26 | 21 - 32 mmol/L | [facility] | | | PLASMA | | | LABORATORY | | | (LAB) | | | SERVICES, | | | | | | CORE | | + + + + + + | CALCIUM, | 8.6 | 8.6 - 10.2 | [facility] | | | PLASMA | | mg/dL | LABORATORY | | | (LAB) | | | SERVICES, | | | | | | CORE | | + + + + + + | CALCIUM(ALB | 9.6 | 8.6 - 10.2 | [facility] | | | CORRECTED) | | mg/dL | LABORATORY | | | | | | SERVICES, | | | | | | CORE | | + + + + + + | ALBUMIN, | 2.7 (L) | 3.5 - 4.7 g/dL | [facility] | | | PLASMA | | | LABORATORY | | | (LAB) | | | SERVICES, | | | | | | CORE | | + + + + + + | PHOSPHORUS, | 2.7 | 2.4 - 4.7 mg/dL | [facility] | | | PLASMA | | | LABORATORY | | | (LAB) | | | SERVICES, | | | | | | CORE | | + + + + + + | POTASSIUM | No Hemo | | [facility] | | | CMNT | | | LABORATORY | | | | | | SERVICES, | | | | | | CORE | | + + + + + + | ANION GAP | 6 | mmol/L | [facility] | | | | | | LABORATORY | | | | | | SERVICES, | | | | | | CORE | | + + + + + + | ANION | 9 | 4 - 11 mmol/L | [facility] | | | GAP(ALB | | | LABORATORY | | | CORRECTED) | | | SERVICES, | | | [...] | + + + + + | [facility] | [address] | [place] [address] | | | SERVICES, CORE | [address] | | | + + + + + INR (09/23/2016 6:28 AM PDT) + +-------+ + + + | Component | Value | Ref Range | Performed | Pathologist | | | | | At | Signature | + +-------+ + + + | INR | 1.15 | 0.90 - 1.20 INR | [facility] [...] | + + + + + | [facility] | [address] | [place] [address] | | | SERVICES, CORE | [address] | | | + + + + + CAPILLARY BLOOD GLUCOSE (NO CHG), POC (09/22/2016 7:53 AM PDT) + +---------+ + + + | Component | Value | Ref Range | Performed | Pathologist | | | | | At | Signature | + +---------+ + + + | BLOOD | 102 (H) | 60 - 99 mg/dL | [facility] - | | | GLUCOSE, | | | [facility] | | | POC | | | [facility] | | | | | | OF CARE | | | | | | TESTS | | + +---------+ + + + + + | Specimen | + + | | + + + + + + + | Performing | Address | City/State/Zipcode | Phone Number | | Organization | | | | + + + + + | [facility] | [address] | [place], [place] | | | [facility] [place] | [facility] | [address] | | | TESTS | | | | + + + + + CBC (HEMOGRAM) ONLY (09/22/2016 5:59 AM PDT) + + + + + + | Component | Value | Ref Range | Performed | Pathologist | | | | | At | Signature | + + + + + + | WHITE CELL | 16.42 (H) | 3.50 - 10.80 | [facility] | | | COUNT | | K/cu mm | LABORATORY | | | | | | SERVICES, | | | | | | CORE | | + + + + + + | RED CELL | 4.15 | 4.00 - 5.20 | [facility] | | | COUNT | | M/cu mm | LABORATORY | | | | | | SERVICES, | | | | | | CORE | | + + + + + + | HEMOGLOBIN | 13.2 | 12.0 - 16.0 | [facility] | | | | | g/dL | LABORATORY | | | | | | SERVICES, | | | | | | CORE | | + + + + + + | HEMATOCRIT | 39.4 | 36.0 - 46.0 % | [facility] | | | | | | LABORATORY | | | | | | SERVICES, | | | | | | CORE | | + + + + + + | MCV | 94.9 | 80.0 - 96.0 fL | [facility] | | | | | | LABORATORY | | | | | | SERVICES, | | | | | | CORE | | + + + + + + | MCHC | 33.5 | 33.0 - 35.5 | [facility] | | | | | g/dL | LABORATORY | | | | | | SERVICES, | | | | | | CORE | | + + + + + + | RDW SD | 44.8 | 35.1 - 46.3 fL | [facility] | | | | | | LABORATORY | | | | | | SERVICES, | | | | | | CORE | | + + + + + + | PLATELET | 348 | 150 - 400 K/cu | [facility] | | | COUNT | | mm | LABORATORY | | | | | | SERVICES, | | | | | | CORE | | + + + + + + | MPV | 8.8 (L) | 9.7 - 12.3 fL | [...] | + + + + + | [facility] | [address] | [place] [address] | | | SERVICES, CORE | [address] | | | + + + + + RENAL FUNCTION SET (NA,K,CL,CO2,BUN,CREAT,GLUC,CA,PHOS,ALB ) (09/22/2016 5:59 AM PDT) + +---------+ + + + | Component | Value | Ref Range | Performed | Pathologist | | | | | At | Signature | + +---------+ + + + | GLUCOSE, | 88 | 60 - 99 mg/dL | [facility] [...] +---------+ + + + | CREATININE | 0.65 | 0.60 - 1.10 | [facility] | | | PLASMA | | mg/dL | LABORATORY | | | (LAB) | | | SERVICES, | | | | | | CORE | | + +---------+ + + + | EGFR | >60 | >60 mL/min | [facility] | | | - | | | LABORATORY | | | DOMINICAN | | | SERVICES, | | | [...] +---------+ + + + | POTASSIUM, | 3.6 | 3.4 - 5.0 | [facility] | [...] + + + | TOTAL CO2, | 26 | 21 - 32 mmol/L | [facility] | | | PLASMA | | | LABORATORY | | | (LAB) | | | SERVICES, | | | | | | CORE | | + +---------+ + + + | CALCIUM, | 8.6 | 8.6 - 10.2 | [facility] | | | PLASMA | | mg/dL | LABORATORY | | | (LAB) | | | SERVICES, | | | | | | CORE | | + +---------+ + + + | CALCIUM(ALB | 9.6 | 8.6 - 10.2 | [facility] | | | CORRECTED) | | mg/dL | LABORATORY | | | | | | SERVICES, | | | | | | CORE | | + +---------+ + + + | ALBUMIN, | 2.7 (L) | 3.5 - 4.7 g/dL | [facility] | | | PLASMA | | | LABORATORY | | | (LAB) | | | SERVICES, | | | | | | CORE | | + +---------+ + + + | PHOSPHORUS, | 1.9 (L) | 2.4 - 4.7 mg/dL | [facility] | | | PLASMA [...] + | ANION GAP | 7 | mmol/L | [facility] | | | | | | LABORATORY | | | | | | SERVICES, | | | | | | CORE | | + +---------+ + + + | ANION | 10 | 4 - 11 mmol/L | [facility] | | | GAP(ALB | | | LABORATORY | | | CORRECTED) | | | SERVICES, | | | [...] [facility] | [address] | [place] [address] | | | SERVICES, CORE | [address] | | | + + + + + INR (09/22/2016 5:59 AM PDT) + +-------+ + + + | Component | Value | Ref Range | Performed | Pathologist | | | | | At | Signature | + +-------+ + + + | INR | 1.13 | 0.90 - 1.20 INR | [facility] [...] | + + + + + | [facility] | [address] | [place] [address] | | | [facility], [facility] | [address] | | | + + + + + CAPILLARY BLOOD GLUCOSE (NO CHG), POC (09/21/2016 7:52 PM PDT) + +---------+ + + + | Component | Value | Ref Range | Performed | Pathologist | | | | | At | Signature | + +---------+ + + + | BLOOD | 117 (H) | 60 - 99 mg/dL | [facility] - | | | GLUCOSE, | | | [facility] | | | POC | | | [facility] | | | | | | OF CARE | | | | | | TESTS | | + +---------+ + + + + + | Specimen | + + | | + + + + + + + | Performing | Address | City/State/Zipcode | Phone Number | | Organization | | | | + + + + + | [facility] | [address] | [place], [place] | | | [facility] | [address] | [phone] | | | TESTS | | | | + + + + + CBC (HEMOGRAM) ONLY (09/21/2016 12:34 AM PDT) + + + + + + | Component | Value | Ref Range | Performed | Pathologist | | | | | At | Signature | + + + + + + | WHITE CELL | 12.77 (H) | 3.50 - 10.80 | [facility] | | | COUNT | | K/cu mm | LABORATORY | | | | | | SERVICES, | | | | | | CORE | | + + + + + + | RED CELL | 4.17 | 4.00 - 5.20 | [facility] | | | COUNT | | M/cu mm | LABORATORY | | | | | | SERVICES, | | | | | | CORE | | + + + + + + | HEMOGLOBIN | 13.2 | 12.0 - 16.0 | [facility] | | | | | g/dL | LABORATORY | | | | | | SERVICES, | | | | | | CORE | | + + + + + + | HEMATOCRIT | 39.1 | 36.0 - 46.0 % | [facility] | | | | | | LABORATORY | | | | | | SERVICES, | | | | | | CORE | | + + + + + + | MCV | 93.8 | 80.0 - 96.0 fL | [facility] | | | | | | LABORATORY | | | | | | SERVICES, | | | | | | CORE | | + + + + + + | MCHC | 33.8 | 33.0 - 35.5 | [facility] | | | | | g/dL | LABORATORY | | | | | | SERVICES, | | | | | | CORE | | + + + + + + | RDW SD | 44.7 | 35.1 - 46.3 fL | [facility] | | | | | | LABORATORY | | | | | | SERVICES, | | | | | | CORE | | + + + + + + | PLATELET | 353 | 150 - 400 K/cu | [facility] | | | COUNT | | mm | LABORATORY | | | | | | SERVICES, | | | | | | CORE | | + + + + + + | MPV | 9.0 (L) | 9.7 - 12.3 fL | [...] + + | [facility] | [address] | [place] [address] | | | SERVICES, CORE | [address] | | | + + + + + RENAL FUNCTION SET (NA,K,CL,CO2,BUN,CREAT,GLUC,CA,PHOS,ALB ) (09/21/2016 12:34 AM PDT) + + + + + + | Component | Value | Ref Range | Performed | Pathologist | | | | | At | Signature | + + + + + + | GLUCOSE, | 109 (H) | 60 - 99 mg/dL | [facility] | | | PLASMA | | | LABORATORY | | | (LAB) | | | SERVICES, | | | | | | CORE | | + + + + + + | BUN, PLASMA | 6 | 6 - 20 mg/dL | [facility] | | | (LAB) | | | LABORATORY | | | | | | SERVICES, | | | | | | CORE | | + + + + + + | CREATININE | 0.54 (L) | 0.60 - 1.10 | [facility] | | | PLASMA | | mg/dL | LABORATORY | | | (LAB) | | | SERVICES, | | | | | | CORE | | + + + + + + | EGFR | >60 | >60 mL/min | [facility] | | | - | | | LABORATORY | | | DOMINICAN | | | SERVICES, | | | | | | CORE | | + + + + + + | EGFR NON | >60 | >60 mL/min | [facility] | | | -[facility] | | | LABORATORY | | | RICAN | | | SERVICES, | | | | | | CORE | | + + + + + + | SODIUM, | 142 | 136 - 145 | [facility] | | | PLASMA | | mmol/L | LABORATORY | | | (LAB) | | | SERVICES, | | | | | | CORE | | + + + + + + | POTASSIUM, | 4.5 | 3.4 - 5.0 | [facility] | | | PLASMA | | mmol/L | LABORATORY | | | (LAB) | | | SERVICES, | | | | | | CORE | | + + + + + + | CHLORIDE, | 110 (H) | 97 - 108 mmol/L | [facility] | | | PLASMA | | | LABORATORY | | | (LAB) | | | SERVICES, | | | | | | CORE | | + + + + + + | TOTAL CO2, | 24 | 21 - 32 mmol/L | [facility] | | | PLASMA | | | LABORATORY | | | (LAB) | | | SERVICES, | | | | | | CORE | | + + + + + + | CALCIUM, | 8.5 (L) | 8.6 - 10.2 | [facility] | | | PLASMA | | mg/dL | LABORATORY | | | (LAB) | | | SERVICES, | | | | | | CORE | | + + + + + + | CALCIUM(ALB | 9.5 | 8.6 - 10.2 | [facility] | | | CORRECTED) | | mg/dL | LABORATORY | | | | | | SERVICES, | | | | | | CORE | | + + + + + + | ALBUMIN, | 2.7 (L) | 3.5 - 4.7 g/dL | [facility] | | | PLASMA | | | LABORATORY | | | (LAB) | | | SERVICES, | | | | | | CORE | | + + + + + + | PHOSPHORUS, | 2.4 | 2.4 - 4.7 mg/dL | [facility] | | | PLASMA | | | LABORATORY | | | (LAB) | | | SERVICES, | | | | | | CORE | | + + + + + + | POTASSIUM | Sl Hemo | | [facility] | | | CMNT | | | LABORATORY | | | | | | SERVICES, | | | | | | CORE | | + + + + + + | ANION GAP | 8 | mmol/L | [facility] | | | | | | LABORATORY | | | | | | SERVICES, | | | | | | CORE | | + + + + + + | ANION | 11 | 4 - 11 mmol/L | [facility] | | | GAP(ALB | | | LABORATORY | | | CORRECTED) | | | SERVICES, | | | | | | CORE | | + + + + + + + + | Specimen | + + | Blood - Blood | | (substance) | + + + + + | Narrative | Performed At | + + + | Sample hemolyzed. Results for K, Total Bili, Direct Bili, AST, | [facility] | | LDH, or HDL may be inaccurate. Refer to comment under test result. | LABORATORY | | GFR is estimated using the MDRD equation recommended by the National | SERVICES, CORE | | Kidney Disease Education Program. Estimated GFR Interpretive | | | Information: <60 mL/min/1.73 sq m Chronic Kidney | | | Disease <15 mL/min/1.73 sq m Kidney Failure | | | Estimated GFR greater that 60 mL/min/1.73 sq m is of limited clinical | | | value. The MDRD equation is not valid in the following situations: | | | - Patients under 18 years of age - Severe malnutrition or obesity | | | - Vegetarian diet - Rapidly changing kidney function | | + + + + + + + + | Performing | Address | City/State/Zipcode | Phone Number | | Organization | | | | + + + + + | [facility] | [address] | [place] [address] | | | SERVICES, CORE | [address] | | | + + + + + INR (09/21/2016 12:34 AM PDT) + +-------+ + + + | Component | Value | Ref Range | Performed | Pathologist | | | | | At | Signature | + +-------+ + + + | INR | 1.04 | 0.90 - 1.20 INR | [facility] | | | | | | LABORATORY [...] mech. valves (2.5 - 3.5) INR | JUANA, RYNE | + + + + + + + + | Performing | Address | City/State/Zipcode | Phone Number | | Organization | | | | + + + + + | [facility] | [address] | [place] [address] | | | SERVICES, RYNE | [address] | | | + + + + + PROCEDURE NOTE (09/20/2016 10:12 PM PDT)CT HEAD WO CONTRAST (09/20/2016 6:58 PM PDT) + + | Specimen | + + | | + + + + + | Narrative | Performed At | + + + | EXAM: CT head without contrast HISTORY: Evaluation for | [facility] | | hemorrhage status post evacuation of subdural hematomas | RADIOLOGY VOICE | | COMPARISON: 09/12/2016 TECHNIQUE: CT of the head without contrast. | RECOGNITION | | FINDINGS: Brain: Right occipital approach ventricular | | | peritoneal shunt remains positioned within the body of the left | | | lateral ventricle as before. Size of the ventricular system is not | | | significantly changed to prior imaging. Postsurgical changes of | | | bilateral aime holes with evacuation of subdural fluid is noted with | | | associated anterior pneumocephalus. Mildly decreased but persistent | | | subdural fluid remains. Linear areas of extra-axial hyperdensity are | | | not appreciably changed. No midline shift. No findings of acute | | | intracranial hemorrhage or ischemia. Soft tissues: Postsurgical | | | changes. Skull and skull base: No fractures . Mastoids and middle | | | ears are unremarkable. Face/orbits: Visualized portions are | | | unremarkable. Paranasal sinuses: Visualized portions are | | | unremarkable. IMPRESSION: Postsurgical changes of bilateral | | | aime holes with mildly decreased subdural fluid. Right occipital | | | approach ventricular peritoneal shunt catheter remains in position | | | with no appreciable change in the ventricular system. I have | | | personally reviewed the images and, if necessary, edited the report. | | | I agree with the report as now presented. | | + + + + + | Procedure Note | + + | Service Account, Radiant Res In Interface - 09/20/2016 8:06 PM PDT EXAM: CT head | | without contrastHISTORY: Evaluation for hemorrhage status post evacuation of subdural | | hematomasCOMPARISON: 09/12/2016TECHNIQUE: CT of the head without | | contrast.FINDINGS:Brain: Right occipital approach ventricular peritoneal shunt remains | | positioned within the body of the left lateral ventricle as before. Size of the | | ventricular system is not significantly changed to prior imaging. Postsurgical changes | | of bilateral aime holes with evacuation of subdural fluid is noted with associated | | anterior pneumocephalus. Mildly decreased but persistent subdural fluid remains. | | Linear areas of extra-axial hyperdensity are not appreciably changed. No midline shift. | | No findings of acute intracranial hemorrhage or ischemia. Soft tissues: Postsurgical | | changes.Skull and skull base: No fractures . Mastoids and middle ears are | | unremarkable.Face/orbits: Visualized portions are unremarkable.Paranasal sinuses: | | Visualized portions are unremarkable.IMPRESSION:Postsurgical changes of bilateral aime | | holes with mildly decreased subdural fluid.Right occipital approach ventricular | | peritoneal shunt catheter remains in position with no appreciable change in the | | ventricular system.I have personally reviewed the images and, if necessary, edited the | | report. I agree with the report as now presented. | |Paranasal sinuses: Visualized portions are unremarkable. | | | |IMPRESSION: | | | |Postsurgical changes of bilateral aime holes with mildly decreased subdural fluid. | | | |Right occipital approach ventricular peritoneal shunt catheter remains in position with no appreciable change in the ventricular system. | | | | | |I have [...] | | | + +---------+ + + CAPILLARY BLOOD GLUCOSE (NO CHG), POC (09/20/2016 6:03 PM PDT) + +---------+ + + + | Component | Value | Ref Range | Performed | Pathologist | | | | | At | Signature | + +---------+ + + + | BLOOD | 101 (H) | 60 - 99 mg/dL | [facility] - | | | GLUCOSE, | | | [facility] | | | POC | | | [facility] | | | | | | OF CARE | | | | | | TESTS | | + +---------+ + + + + + | Specimen | + + | | + + + + + + + | Performing | Address | City/State/Zipcode | Phone Number | | Organization | | | | + + + + + | [facility] | [address] | [place], [place] | | | [facility] [place] | [facility] | [address] | | | TESTS | | | | + + + + + PROCEDURE NOTE (09/20/2016 5:42 PM PDT) + + + | Narrative | Performed At | + + + | Nata Hinojosa MD 09/20/2016 5:42 PM INPATIENT BRIEF | | | OPERATIVE NOTE Procedure Date: 09/20/2016 Author: Nata | | | MD Ashish Attending Physician: Nolvia Delgado MD Assistants: | | | Luis F Hinojosa MD Prior to the beginning of the procedure the | | | team paused to verify the patient's identity, as well as the | | | procedure to be performed and the correct side/site. All equipment | | | required was ready and available. The patient was positioned | | | appropriately. The following team members were present during the | | | team pause: Neurosurgery, anesthesia, nursing, OR staff | | | Preoperative Diagnosis: Bilateral chronic subdural hematomas | | | Blindness History of toxoplasmosis History of recent VPS | | | placement (Strata @ 2.5) Postoperative Diagnosis: same | | | Procedure Performed: 1) Bilateral Aime Holes for evacuation of | | | chronic subdural hematomas Estimated Blood Loss: 50 mL | | | Fluids: per anesthesia Specimens: none Complications: none | | | Drains: navarro Disposition: to PACU then NSICU Findings: | | | bilateral aime holes done. Dark subdural blood released. Irrigated | | | until clear. Dictation to follow. Luis F Hinojosa MD | | | [id number] Chief Resident Neurosurgery | | + + + CAPILLARY BLOOD GLUCOSE (NO CHG), POC (09/20/2016 3:07 PM PDT) + +-------+ + + + | Component | Value | Ref Range | Performed | Pathologist | | | | | At | Signature | + +-------+ + + + | BLOOD | 83 | 60 - 99 mg/dL | [facility] - | | | GLUCOSE, | | | [facility] | | | POC | | | [place] [place] | | | | | | OF CARE | | | | | | TESTS | | + +-------+ + + + + + | Specimen | + + | | + + + + + + + | Performing | Address | City/State/Zipcode | Phone Number | | Organization | | | | + + + + + | [facility] | [address] | [place], [place] | | | [facility] | [address] | [address] | | | TESTS | | | | + + + + + INTRAPROCEDURE IMAGING (09/20/2016 2:27 PM PDT) + + | Specimen | + + | | + + + + + | Narrative | Performed At | + + + | See admission or procedure notes for details of any intraprocedure | | | images obtained. | | + + + documented in this encounter Visit Diagnoses + + | Diagnosis | + + | Subdural hematoma (HCC) - Primary Subdural hemorrhage | + + | Acute on chronic intracranial subdural hematoma (HCC) | + + | At risk for constipation Other specified conditions influencing health status | + + | At risk for deep venous thrombosis Other specified conditions influencing health | | status | + + | At risk for electrolyte imbalance Other specified conditions influencing health | | status | + + | Blindness and low vision | + + | Hydrocephalus (HCC) Obstructive hydrocephalus | + + | Seizure disorder (HCC) Unspecified epilepsy without mention of intractable epilepsy | + + | Spasticity Abnormal involuntary movements | + + documented in this encounter Administered Medications + +--------+ + +------+------+ | Medication Order | MAR | Action | Dose | Rate | Site | | | Action | Date | | | | + +--------+ + +------+------+ | acetaminophen (TYLENOL) tablet | Given | 09/21/19 | 1,000 mg | | | | 1,000 mg 1,000 mg, oral, | | 17 3:02 | | | | | PREPROCEDURE ONCE, 1 dose, | | PM PDT | | | | | Starting Fri09/20/16 at 1427, | | | | | | | Until Fri09/20/16 at 1502 | | | | | | + +--------+ + +------+------+ +---+---+ | | | +---+---+ + +-------+ +--------+---+---+ | acetaminophen (TYLENOL) tablet | Given | 09/24/19 | 325 mg | | | | 325-650 mg 325-650 mg, oral, | | 17 12:40 | | | | | EVERY 6 HOURS NEEDED, Starting | | AM PDT | | | | | 09/20/16 at 1910, Until Tue | | | | | | | 09/24/16 at 2204, mild pain, | | | | | | | headache, fever, multimodal pain | | | | | | | control | | | | | | + +-------+ +--------+---+---+ +-------+ +--------+---+---+ | Given | 09/23/19 | 325 mg | | | | | 17 12:16 | | | | | | AM PDT | | | | +-------+ +--------+---+---+ +---+---+ | | | +---+---+ + +-------+ +------+---+---+ | baclofen (LIORESAL) tablet 5 mg | Given | 09/21/19 | 5 mg | | | | 5 mg, oral, AT BEDTIME, First | | 17 10:39 | | | | | dose on Fri09/20/16 at 2200, Until | | PM PDT | | | | | Discontinued | | | | | | + +-------+ +------+---+---+ +---+---+ | | | +---+---+ + +-------+ +------+---+---+ | baclofen (LIORESAL) tablet 5 mg | Given | 09/25/19 | 5 mg | | | | 5 mg, oral, DAILY, First dose | | 17 8:39 | | | | | (after last modification) on Fri | | AM PDT | | | | | 09/22/16 at 0900, Until | | | | | | | Discontinued | | | | | | + +-------+ +------+---+---+ +-------+ +------+---+---+ | Given | 09/24/19 | 5 mg | | | | | 17 9:25 | | | | | | AM PDT | | | | +-------+ +------+---+---+ | Given | 09/23/19 | 5 mg | | | | | 17 8:06 | | | | | | AM PDT | | | | +-------+ +------+---+---+ +---+---+ | | | +---+---+ + +-------+ +-------+---+---+ | bisacodyl (DULCOLAX) | Given | 09/24/19 | 10 mg | | | | suppository 10 mg 10 mg, rectal, | | 17 3:41 | | | | | DAILY NEEDED, Starting Fri | | PM PDT | | | | | 09/20/16 at 1910, Until 09/24/16 | | | | | | | at 2204, 2nd line for no BM in | | | | | | | past 2 days OR if no response to | | | | | | | MIRALAX or if patient unable to | | | | | | | tolerate oral | | | | | | + +-------+ +-------+---+---+ +---+---+ | | | +---+---+ + +-------+ +------+---+---+ | bisacodyl EC (DULCOLAX) tablet | Given | 09/24/19 | 5 mg | | | | 5 mg 5 mg, oral, DAILY, First | | 17 9:25 | | | | | dose on 09/23/16 at 0845, | | AM PDT | | | | | Until Discontinued | | | | | | + +-------+ +------+---+---+ +---+---+ | | | +---+---+ + +---------+ +-----+---+---+ | ceFAZolin IV 2 grams in NS | New Bag | 09/23/19 | 2 g | | | | (RTU) 2 g, intravenous, EVERY 8 | | 17 12:14 | | | | | HOURS, 4 doses, First dose on Sat | | AM PDT | | | | | 09/21/16 at 0000, Last dose on Sun | | | | | | | 09/22/16 at 0000 | | | | | | + +---------+ +-----+---+---+ +---------+ +-----+---+---+ | New Bag | 09/22/19 | 2 g | | | | | 17 4:54 | | | | | | PM PDT | | | | +---------+ +-----+---+---+ | New Bag | 09/22/19 | 2 g | | | | | 17 8:19 | | | | | | AM PDT | | | | +---------+ +-----+---+---+ +---+---+ | | | +---+---+ + +-------+ +-------+---+---------+ | enoxaparin (LOVENOX) injection | Given | 09/24/19 | 40 mg | | Abdomen | | 40 mg 40 mg, subcutaneous, EVERY | | 17 9:39 | | | | | EVENING, First dose (after last | | PM PDT | | | | | modification) on 09/22/16 at | | | | | | | 2100, Until Discontinued | | | | | | + +-------+ +-------+---+---------+ +-------+ +-------+---+---------+ | Given | 09/23/19 | 40 mg | | Abdomen | | | 17 9:25 | | | | | | PM PDT | | | | +-------+ +-------+---+---------+ +---+---+ | | | +---+---+ + +-------+ +--------+---+---+ | gabapentin (NEURONTIN) capsule | Given | 09/21/19 | 600 mg | | | | 600 mg 600 mg, oral, | | 17 3:02 | | | | | PREPROCEDURE ONCE, 1 dose, | | PM PDT | | | | | Starting Fri09/20/16 at 1427, | | | | | | | Until Fri09/20/16 at 1502 | | | | | | + +-------+ +--------+---+---+ +---+---+ | | | +---+---+ + +-------+ +--------+---+---+ | lamoTRIgine (LAMICTAL) tablet | Given | 09/25/19 | 100 mg | | | | 100 mg 100 mg, oral, TWICE | | 17 8:39 | | | | | DAILY, First dose on Fri09/20/16 | | AM PDT | | | | | at 2100, Until Discontinued | | | | | | + +-------+ +--------+---+---+ +-------+ +--------+---+---+ | Given | 09/24/19 | 100 mg | | | | | 17 9:39 | | | | | | PM PDT | | | | +-------+ +--------+---+---+ | Given | 09/24/19 | 100 mg | | | | | 17 9:25 | | | | | | AM PDT | | | | +-------+ +--------+---+---+ +---+---+ | | | +---+---+ + + + +---+ +---+ | NaCl 0.9%-KCl 20 mEq/L IV | Rate/Dos | 09/22/19 | | 50 mL/hr | | | infusion intravenous, | e Verify | 17 4:00 | | | | | CONTINUOUS, Starting Fri09/20/16 | | PM PDT | | | | | at 1915, Until Fri09/23/16 at | | | | | | | 0818, at 50 mL/hr | | | | | | + + + +---+ +---+ + + +---+ +---+ | Rate/Dose Verify | 09/22/19 | | 50 mL/hr | | | | 17 3:00 | | | | | | PM PDT | | | | + + +---+ +---+ | Rate/Dose Verify | 09/22/19 | | 50 mL/hr | | | | 17 2:00 | | | | | | PM PDT | | | | + + +---+ +---+ +---+---+ | | | +---+---+ + +-------+ +------+---+---+ | ondansetron (ZOFRAN) injection | Given | 09/22/19 | 4 mg | | | | 4 mg 4 mg, intravenous, EVERY 8 | | 17 4:30 | | | | | HOURS, 3 doses, First dose on Sat | | PM PDT | | | | | 09/21/16 at 0000, Last dose on Sat | | | | | | | 09/21/16 at 1600 | | | | | | + +-------+ +------+---+---+ +-------+ +------+---+---+ | Given | 09/22/19 | 4 mg | | | | | 17 8:13 | | | | | | AM PDT | | | | +-------+ +------+---+---+ | Given | 09/22/19 | 4 mg | | | | | 17 12:44 | | | | | | AM PDT | | | | +-------+ +------+---+---+ +---+---+ | | | +---+---+ + +-------+ +------+---+---+ | polyethylene glycol (MIRALAX) | Given | 09/24/19 | 17 g | | | | packet 17 g 17 g, oral, DAILY, | | 17 9:25 | | | | | First dose on 09/21/16 at 0900, | | AM PDT | | | | | Until Discontinued | | | | | | + +-------+ +------+---+---+ +-------+ +------+---+---+ | Given | 09/23/19 | 17 g | | | | | 17 8:06 | | | | | | AM PDT | | | | +-------+ +------+---+---+ | Given | 09/22/19 | 17 g | | | | | 17 8:12 | | | | | | AM PDT | | | | +-------+ +------+---+---+ +---+---+ | | | +---+---+ + +-------+ +------+---+---+ | polyethylene glycol (MIRALAX) | Given | 09/23/19 | 34 g | | | | packet 34 g 34 g, oral, THREE | | 17 9:26 | | | | | TIMES DAILY NEEDED, Starting | | PM PDT | | | | | Fri09/20/16 at 1910, Until Fri | | | | | | | 09/24/16 at 2204, 1st line - for | | | | | | | no BM for 2 days | | | | | | + +-------+ +------+---+---+ + +---+ | | | + +---+ | promethazine (PHENERGAN) | | | suppository 25 mg 25 mg, rectal, | | | EVERY 6 HOURS NEEDED, | | | Starting 09/20/16 at 1645, | | | Until Fri09/24/16 at 2204, | | | nausea/vomiting, second line | | + +---+ | | | + +---+ + +-------+ +---------+---+---+ | senna-docusate (SENOKOT S) | Given | 09/24/19 | 2 | | | | 8.6-50 mg 2 tablet 2 tablet, | | 17 9:25 | tablets | | | | oral, TWICE DAILY, First dose on | | AM PDT | | | | | 09/20/16 at 2100, Until | | | | | | | Discontinued | | | | | | + +-------+ +---------+---+---+ +-------+ +---------+---+---+ | Given | 09/23/19 | 2 | | | | | 17 9:25 | tablets | | | | | PM PDT | | | | +-------+ +---------+---+---+ | Given | 09/23/19 | 2 | | | | | 17 8:06 | tablets | | | | | AM PDT | | | | +-------+ +---------+---+---+ +---+---+ | | | +---+---+ documented in this encounter
--- OUTSIDE RECORDS SUMMARY | ~2019-10-25 | XMS | Encounter Summary ---
Demographics + + + | Address | [address] | | | [place] [address] | + + + | Home Phone | | + + + | Preferred Language | Unknown | + + + | Marital Status | Single | + + + | Quaker Affiliation | NRP | + + + | Race | White | + + + | Ethnic Group | Not or | + + + Author + + + | Author | [facility] | + + + | Organization | [facility] | + + + | Address | Unknown | + + + | Phone | Unavailable | + + + Support + + + + + | Name | Relationship | Address | Phone | + + + + + | Malina Nicole | ECON | [address] | | | | | [place] | | | | | [phone] | | + + + + + | Bill Corey | ECON | Unknown | | + + + + + Care Team Providers + +------+ + | Care Digital Research Analyst Name | Role | Phone | + +------+ + PCP | Unavailable | + +------+ + Encounter Details +--------+ + + + + | Date | Type | Department | Care Team | Description | +--------+ + + + + | 09/22/ | Hospital | Registration HOV | | | | 2011 | Encounter | [address] | | | | | | [place], | | | | | | [place] [address] | | | +--------+ + + + [...] | | 2020 | Visit | | [address] | | | | | | [place], [place] | | | | | | [address] | | | | | | [phone] | | | | | | | | +--------+---------+ + + + documented as of this encounter Visit Diagnoses Not on filedocumented in this encounter"
--- OUTSIDE RECORDS SUMMARY | ~2019-10-25 | XMS | Encounter Summary ---
Demographics + + + | Address | [address] | | | [place] [address] | + + + | Home Phone | | + + + | Preferred Language | Unknown | + + + | Marital Status | Single | + + + | Adventism Affiliation | NRP | + + + | Race | White | + + + | Ethnic Group | Not or | + + + Author + + + | Author | [facility] | + + + | Organization | [facility] | + + + | Address | Unknown | + + + | Phone | Unavailable | + + + Support + + + + + | Name | Relationship | Address | Phone | + + + + + | Malina Nicole | ECON | [address] | | | | | [place] | | | | | [address] | | + + + + + | Scott Nicole | ECON | Unknown | | + + + + + Care Team Providers + +------+ + | Care Moderate Needs Teacher Name | Role | Phone | + +------+ + | Rowan Cardenas PA-C | PCP | | + +------+ + Reason for Referral Diagnostic Testing (Routine) +--------+--------+ + + + + | Status | Reason | Specialty | Diagnoses / | Referred By | Referred To | | | | | Procedures | Contact | Contact | +--------+--------+ + + + + | Closed | | Radiology | Diagnoses | Danny, | | | | | | Obstructive | Talya Liang MD | | | | | | | [address] | | | | | | hydrocephalu | Ave | | | | | | s ([facility]) | [place], [place] | | | | | | Procedures | [address] | | | | | | CT HEAD WO | Phone: | | | | | | CONTRAST | [phone] | | | | | | | Fax: | | | | | | | [phone] | | +--------+--------+ + + + + Reason for Visit + + + | Reason | Comments | + + + | Return Patient | | + + + | Ct Scan Result | | + + + Office Visit - E/M Services (Routine) +--------+--------+ + + + + | Status | Reason | Specialty | Diagnoses / | Referred By | Referred To | | | | | Procedures | Contact | Contact | +--------+--------+ + + + + | Closed | | Neurological | Diagnoses | Inez, | Danny, | | | | Surgery | Obstructive | Ada Apple, | Talya Liang MD | | | | | | ,PhD [phone] | | | | | hydrocephalu | [facility] | Ave | | | | | s (HCC) | [facility] | [place], [place] | | | | | Procedures | Rd | [address] | | | | | [place] EST | [place], [place] | Phone: | | | | | PATIENT | [address] | [phone] | | | | | LEVEL V GA | Phone: | Fax: | | | | | REPROGRAMMIN | [phone] | [phone] | | | | | G,PROGRAMMAB | Fax: | | | | | | LE CSF SHUNT | [phone] | | +--------+--------+ + + + + Encounter Details +--------+---------+ + + + | Date | Type | Department | Care Team | Description | +--------+---------+ + + + | 08/28/ | Office | Neurosurgery at | Talya Delgado, | Obstructive | | 2018 | Visit | [facility] [address] | MD [address] | hydrocephalus | | | | [facility] | [place], [place] | (Primary Dx) | | | | [facility], | [address] | | | | | Building | [phone] | | | | | floor [place], [place] | | | | | | [address] | | | | | | [phone] | | | +--------+---------+ + + + [...] + + + | Blood Pressure | 132/71 | 08/28/2017 11:14 AM | | | | | PDT | | + + + + + | Pulse | 80 | 08/28/2017 11:14 AM | | | | | PDT [...] + + + + | Weight | 102.1 kg (225 lb) | 08/28/2017 11:14 AM | | | | | PDT | | + + + + + | Height | - | - | | + + + + + | Body Mass Index | 35.24 | 09/20/2016 2:44 PM | | | | | PDT | | + + + + + documented in this encounter Progress Notes Talya Delgado MD - 08/28/2017 11:30 AM PDTFormatting of this note might be different fro m the original. NEUROSURGERY FOLLOW UP CLINIC VISIT HPI / INTERVAL HISTORY: Rin Casas is a 47 y.o. 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 She underwent bilateral aime holes o n 09/20/16. She was seen in clinic on 05/29/17 for a 3 month check and shunt check at which raul hassan she had some bladder and bowel symptoms and her Strata valve was changed from 2.5 to 2.0. The patient's parents report she has been doing in-home therapy and is being fitted for an ankle brace. She is "not improving but not getting worse". Her tranfers are a little better but she still needs 24 hour supervision and care. I personally reviewed patient symptoms and pertinent positives are available in the HPI, al l others negative. 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 Not to exceed 3250 mg of acetaminophen from all products per 24 hour period. baclofen 10 mg oral tablet Take 0.5 tablets by mouth once daily at bedtime. Indications : Muscle Spasticity of Spinal Origin (Patient taking differently: Take 10 mg by mouth once d aily in the morning. Indications: Muscle Spasticity of Spinal Origin) 30 tablet 0 lamoTRIgine 100 mg Oral tablet Take 100 mg by mouth two times daily. loratadine 10 mg oral tablet Take 10 mg by mouth once daily as needed (seasonal allergi es). MULTIVITAMIN ORAL Take 1 tablet by mouth once daily in the morning. oxyCODONE (immediate release) 5 mg oral tablet Take 1-2 tablets by mouth every six hour s as needed for moderate pain or severe pain. Indications: Pain 50 tablet 0 polyethylene glycol 17 gram oral powder in packet Mix 1 packet and take orally three ti mes daily as needed (1st line - for no BM for 2 days). senna-docusate 8.6-50 mg oral tablet Take 2 tablets by mouth two times daily. For post- operative constipation, discontinue for loose stool. Indications: constipation 60 tablet 0 No current facility-administered medications on file prior to visit. PHYSICAL EXAM: BP 132/71 | Pulse 80 | Wt 102.1 kg (225 lb) | BMI 35.24 kg/(m^2) Awake, alert, oriented x3, follow commands PERRL, EOMI, hearing intact Tongue midline, Palate elevates symmetrically Face symmetric, V1-3 intact to light touch bilaterally Sensation grossly intact to light touch QUINTANILLA In Wheel chair spastic IMAGING: All studies personally reviewed. 08/28/2017 CT HEAD WITHOUT CONTRAST Minimally decreased size of the lateral ventricles. Interval increase in size in the bilate ral extra-axial fluid collections which is likely compensatory. No midline shift or mass eff ect. ASSESSMENT AND PLAN: Rni Casas is a 47 y.o. female who presents for 3 month check up after Strata shunt va lve adjustment to 2.0. CT shows decreased ventricles and likely compensatory increase in ext ra-axial fluid collections. The patient is doing in-home PT and has made some improvements. She is not doing worse. Her valve is now draining enough to relax the ventricles without dorothy dence of another SDH. I will not be adjusting the valve further. - obtain CT and RTC in 6 months - low threshold to present to the ED for new or worsening symptoms I, Tracy James, am functioning as a scribe for Dr. Talya Delgado MD. I have reviewed and verified the above scribed note of my visit with this patient as record ed by Tracy James. MD TALYA Sanz MD NEUROSURGERY AT [facility] [address] Mailcode: [id number] [id number] documented in this en counter Plan of Treatment +--------+---------+ + + + | Date | Type | Specialty | Care Team | Description | +--------+---------+ + + + | 11/24/ | Office | Neurological Surgery | Talya Delgado, | | | 2020 | Visit | | [address] | | | | | | [place], [place] | | | | | | [address] | | | | | | [phone] | | | | | | | | +--------+---------+ + + + documented as of this encounter Results CT HEAD WO CONTRAST (01/08/2018 12:02 PM PDT) + + | Specimen | + + | | + + + + + | Narrative | Performed At | + + + | EXAM: CT HEAD WITHOUT CONTRAST HISTORY: Interval surveillance MATERIAL PREPARATION WORKER | [facility] | | shunt function COMPARISON: 08/28/2017 TECHNIQUE: CT of the | RADIOLOGY VOICE | | head without intravenous contrast. FINDINGS: BRAIN: There is | RECOGNITION 2 | | stable right greater than left supratentorial ventriculomegaly. The | | | right posterior approach ventriculostomy tube crosses midline and | | | terminates in the left frontal horn, as before. Fourth ventricle | | | remains normal in size. There is no midline shift or basal cistern | | | effacement. Small extra-axial fluid over the right parietal | | | convexities also appears stable. No evidence for acute intracranial | | | hemorrhage or new mass effect. As above. SOFT TISSUES: | | | Unremarkable. SKULL AND SKULL BASE: No fractures or destructive | | | lesions. Mastoids and middle ears are unremarkable. FACE/ORBITS: | | | Visualized portions are unremarkable. PARANASAL SINUSES: Visualized | | | portions are unremarkable. IMPRESSION: Stable ventricular size | | | and localized extra-axial fluid over the right parietal convexities | | | as compared to 08/28/2017. No new acute process. I have personally | | | reviewed the images and, if necessary, edited the report. I agree with | | | the report as now presented. 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 FINDINGS: BRAIN: There | | is stable right greater than left supratentorial ventriculomegaly. The right posterior | | approach ventriculostomy tube crosses midline and terminates in the left frontal horn, | | as before. Fourth ventricle remains normal in size. There is no midline shift or basal | | cistern effacement. Small extra-axial fluid over the right parietal convexities also | | appears stable. No evidence for acute intracranial hemorrhage or new mass effect. As | | above. SOFT TISSUES: Unremarkable.SKULL AND SKULL BASE: No fractures or destructive | | lesions. Mastoids and middle ears are unremarkable.FACE/ORBITS: Visualized portions are | | unremarkable.PARANASAL SINUSES: Visualized portions are unremarkable. IMPRESSION: Stable | | ventricular size and localized extra-axial fluid over the right parietal convexities as | | compared to 08/28/2017. No new acute process. I have personally reviewed the images and, | | if necessary, edited the report. I agree with the report as now presented. Final | | signature: Chiquis Sims MD 01/08/2018 12:17 PM Preliminary: Chiquis Sims | | Dictation initiated: Chiquis Sims MD 01/08/2018 12:13 PM | |PARANASAL SINUSES: Visualized portions are unremarkable. | | | |IMPRESSION: | | | |Stable ventricular size and localized extra-axial fluid over the right parietal convexities as compared to 08/28/2017. No new acute process. | | | |I have personally reviewed the images and, if necessary, edited the report. I agree with th e report as now presented. | | | |Final signature: Chiquis Sims MD 01/08/2018 12:17 PM | |Preliminary: hCiquis Sims MD | |Dictation initiated: Chiquis Sims MD 01/08/2018 12:13 PM | + + + +---------+ + [...] | + + | Obstructive hydrocephalus (HCC) - Primary Obstructive hydrocephalus | + + documented in this encounter
--- OUTSIDE RECORDS SUMMARY | ~2019-10-25 | XMS | Encounter Summary ---
Demographics + + + | Address | [address] | | | [place] [address] | + + + | Home Phone | | + + + | Preferred Language | Unknown | + + + | Marital Status | Single | + + + | Christian Affiliation | NRP | + + + | Race | White | + + + | Ethnic Group | Not or | + + + Author + + + | Author | [facility] | + + + | Organization | [facility] | + + + | Address | Unknown | + + + | Phone | Unavailable | + + + Support + + + + + | Name | Relationship | Address | Phone | + + + + + | Malina Nicole | ECON | [phone] | | | | | [place] | | | | | [address] | | + + + + + | Scott Mcgarry ECON | Unknown | | + + + + + Care Team Providers + +------+ + | Care Causticiser Name | Role | Phone | + +------+ + | Patricia Stevens | PCP | | + +------+ + Reason for Visit + + + | Reason | Comments | + + + | Subdural hemorrhage | large chronic subdural with acute component | + + + AUTH/CERT +--------+--------+ + [...] | +--------+ + + + + | 08/17/ | Hospital | [facility] [address] | Nolvia Delgado, | | | 2017 - | Encounter | [place] | [address] | | | | | [id number] [facility] | [place], [place] | | | 08/22/ | | [facility] [place], | [address] | | | 2017 | | [place] [address] | [phone] | | | | | [phone] | | | +--------+ + + + [...] + + + | Blood Pressure | 125/81 | 08/22/2016 11:26 AM | | | | | PDT | | + + + + + | Pulse | 113 | 08/22/2016 11:26 AM | | | | | PDT | | + + + + + | Temperature | 36.5 C (97.7 F) | 08/22/2016 11:26 AM | | | | | PDT | | + + + + + | Respiratory Rate | 16 | 08/22/2016 8:26 AM | | | | | PDT | | + + + + + | Oxygen Saturation | 96% | 08/22/2016 11:26 AM | | | | | PDT | | + + + + + | Inhaled Oxygen | - | - | | | Concentration | | | | + + + + + | Weight | 97.5 kg (214 lb 15.2 | 08/20/2016 7:00 AM | | | | oz) | PDT | | + + + + + | Height | 167.6 cm (5' 6") | 08/17/2016 3:15 PM | | | | | PDT | | + + + + + | Body Mass Index | 34.69 | 08/17/2016 3:15 PM | | | | | PDT | | + + + + + documented in this encounter Discharge Summaries Jeannine Pelayo PA-C - 08/22/2016 8:21 AM PDTFormatting of this note might be differen t from the original. NEUROSURGERY DISCHARGE SUMMARY: Patient: Rin Casas Admission Date: 08/17/2016 Discharge Date: 08/22/2016 Attending Physician: Nolvia Delgado MD PCP: REENA Gusman Service: [facility] Neurosurgery Diagnoses Principal Final Diagnosis: bilateral L>R subdural fluid collections. Additional Diagnoses: Past Medical History: No date: Blindness of both eyes, impairment level not f* No date: Cerebral palsy (HCC) No date: Epilepsy, partial (HCC) No date: H/O hydrocephalus No date: Legally blind 2001: S/P placement of VNS (vagus nerve stimulation)* No date: Seizures (HCC) No date: Spastic quadriparesis (HCC) Procedures Shunt setting changed to 2.5, no surgical procedures performed this admission. Brief Hospital Course Rin Casas is a 46 y.o. female with a history of post-infections CP, seizure disorder, and hydrocephalus, who presented on 08/17/16with new bilateral L>R subdural fluid collectio ns. Her shunt was recently turned down to 1.0, and this picture is very consistent with over draining. As a result she was admitted electively on 08/17/2016 and her shunt setting was rais ed to 2.5. The inpatient stay related to this procedure(s) took an uncomplicated perioperat tonio course and the patient was followed closely by the attending providers, resident provide rs, and medical/nursing staff. The patient was admitted to the NSICU for close neurologic and hemodynamic monitoring. When stable, the patient was transferred to the [facility] for ongoing convalescent care. A repeat hea d CT performed on 08/22 showed stable fluid collections and the patient was without any sympto ms. The patient made appropriate gains toward activity and functional goals while an inpatie nt. The patient worked with our rehabilitation team with recommendation for return to prior living arrangements upon discharge. While on the hospital floor, the patient tolerated oral intake sufficient to maintain nutri tion and hydration. The patient was felt appropriate for discharge to home on 08/22/2016, and the patient and/or family members agree [...] Destination: Destination: Home Condition on Discharge Good FOLLOW-UP You have an appointment with Dr. Nolvia Delgado at 1:00 PM on 09/12/16. This will be on the 8t h floor at the [facility] on the [facility] located at [address] [facility] [place] [place] [facility]. Please call [phone] if you have any questions or concerns befor e your appointment time. PCP:REENA Gusman When: Please follow-up with your [...] Medication List START taking these medications Details acetaminophen 325 mg oral tablet Take 2 tablets by mouth every six hours as needed. baclofen 10 mg oral tablet Take 0.5 tablets by mouth once daily at bedtime. Indications: Mu scle Spasticity of Spinal Origin Qty: 30 tablet, Refills: 0 dexamethasone 2 mg oral tablet Take 1 tablet by mouth every twelve hours for 10 days. Qty: 20 tablet, Refills: 0 oxyCODONE (immediate release) 5 mg oral tablet Take 1-3 tablets by mouth every three hours as needed for moderate pain. Indications: Pain Qty: 30 tablet, Refills: 0 polyethylene glycol 17 gram oral powder in packet Mix 1 packet and take orally once daily. For post-operative constipation, discontinue for loose stool. Indications: constipation Qty: 10 packet, Refills: 1 senna-docusate 8.6-50 mg oral tablet Take 2 tablets by mouth two times daily. For post-oper ative constipation, discontinue for loose stool. Indications: constipation Qty: 60 tablet, Refills: 1 CONTINUE these medications which have NOT CHANGED Details lamoTRIgine 100 mg Oral tablet Take 100 mg by mouth two times daily. loratadine 10 mg oral tablet Take 10 mg by mouth once daily as needed (seasonal allergies). MULTIVITAMIN ORAL Take 1 tablet by mouth once daily in the morning. Special Instructions/Tests: None Condition On Discharge: Good Vital Signs at discharge as appropriate: BP: 120/92 (08/22/16 0523) Pulse: 75 (08/22/16 0523) Resp: 18 ( 0523) Weight: 97.5 kg (214 lb 15.2 oz) (08/20/16 0700) Discharge Patient To: Home Does patient have a planned readmission: No Discharge Summary Completed?: Yes. 08/22/2016 Discharging Provider: Jeannine Pelayo PA-C Date Completed: 08/22/2016 Time Completed: 8:21 AM Discharging Attending: Nolvia Delgado MD [facility] [address] [id number] [place] [address] documented in th is encounter Discharge Instructions Instructions Brenda FortePAIGE - 08/20/2016 There are more than 6 million stroke survivors in the [place] Recovery After Stroke: Coping with Emotions Dealing with a flood of emotions can be hard for stroke survivors. Some emotions are sandra l responses to the changes in your life after stroke. Others are common but should not be c onsidered a normal part of stroke recovery. If you suffer from depression, anxiety or emoti ons that are not in line with the occasion, seek help. Dealing with Depression Grieving for what you have lost is good for you. But when sadness turns to depression, it s time to act. Depression can take hold right after a stroke, during rehabilitation (rehab ) or after you go home. It can be but not always caused by brain damage from the st roke. Mild or major, it is the most common emotional problem faced by survivors. Depression symptoms include: ? Feeling sad or empty most of the time ? Loss of interest or pleasure in ordinary activities ? Fatigue or feeling slowed down ? Sudden trouble sleeping or oversleeping ? Sudden loss of appetite or weight gain ? Being unable to concentrate, remember or make decisions like you used to ? Feeling worthless or helpless ? Feelings of guilt ? Ongoing thoughts of or suicide, suicide planning or attempts ? A sudden change in how easily you are annoyed ? Crying all the time Some useful tips: ? Make the most of rehab; the more you recover, the better you will feel ? Spend time with family and friends ? Maintain your quality of life by staying active and doing things you enjoy ? Seek help soon after you note symptoms Your treatment may include counseling, medicine or both. Having Extreme Anxiety Anxiety is an overwhelming sense of worry or fear. It can include increased sweating or he art rate. Among stroke survivors, feelings of anxiety are common. Often, stroke survivors s uffer from both depression and anxiety at the same time. Anxiety can affect rehab progress, daily living, relationships and quality of life. So, be sure to seek help right away. Anxiety symptoms include: ? Ongoing worrying, fear, restlessness and irritability that don t seem to let up ? Low energy ? Poor concentration ? Muscle tension ? Feeling panicky and out of breath ? Scary rapid heart beat ? Shaking ? Headache ? Feeling sick to your stomach Again, treatment may include counseling, medicine or both. Uncontrolled Emotions Do you find yourself laughing or crying at all the wrong times? If so, you may suffer from Pseudobulbar Affect (PBA). Also called emotional incontinence or pathologic lability, PBA i s a common medical problem among stroke survivors. It can cause you to laugh at a o r cry at a comedy club. It can even make you cry uncontrollably for little or no reason. F or this reason, it is often confused with depression. But, PBA is not depression. People with PBA are unable to control their emotional expressions the way they used to. Wh en this happens in social settings, they feel embarrassed, frustrated and angry. They also sense that others are uneasy. They may avoid work, public places and family get-togethers. This can lead to feelings of fear, shame and isolation. There is no treatment approved by the Federal Drug Administration (FDA) for PBA, though ant idepressant drugs can help. These things may help you cope with PBA: ? Be open about it. Warn people that you cannot always control your emotions. Explain that the emotions you show on the outside don t always reflect how you feel on the inside. ? Distract yourself. If you feel an outburst coming on, focus on something boring or unrel ated. Try counting the number of items on a shelf. ? Note the posture you take when crying. When you think you are about to cry, change your posture. ? Breathe in and out slowly until you are in control. ? Relax your forehead, shoulders and other muscles that tense up when crying. What Can Help ? Ask your doctor about emotional changes and symptoms early on. ? Ask your family to stimulate your interest in people and social activities. ? Stay as active as possible and stay involved in your hobbies. ? Set goals and measure accomplishment. ? Plan daily activities to provide structure and sense of purpose. ? Stay involved with people, thoughts and activities that you enjoy. ? Get information on stroke recovery from National Stroke Association. Visit http://www.st roke.org/ or call 8-826-PXTAZQX ( ). ? The [place] Stroke Association Family "Warmline" 2-277-3-STROKE ( ). ? Contact your local stroke association. ? Join a stroke support group. Other survivors will understand your issues, and offer suppo rt and ideas to help you manage your emotions. ? Speak openly and honestly to your caregivers about your emotional changes. They ll be glad you did, and together you can work out a solution. Professionals Who Can Help ? Psychologists, psychiatrists and other mental health professionals experienced with strok e-related emotional disorders. Rehabilitation is a lifetime commitment and an important part of recovering from a stroke. Through rehabilitation, you relearn basic skills such as talking, eating, dressing and walk ing. Rehabilitation can also improve your strength, flexibility and endurance. The goal is to regain as much independence as possible. Remember to ask your doctor, Where am I on my stroke recovery journey? If you are having thoughts of harming yourself or feel you are experiencing a mental health emergency, please reach out to one of the resources listed below: -Call 911 -Call one of the 07/10 Crisis Line numbers listed below -Call your primary care provider NATIONAL CRISIS LINES: -07/10 National Suicide Prevention Lifeline 1-494-491-TALK (0215) Hearing and Speech Impaired 5-047-449-4TTY (6235) http://www.suicidepreventionlifeline.org/ -07/10 Mental Health Treatment Referral Line 7-007-824-HELP (1371) http://www.samhsa.gov/treatment/natHelpFAQs.aspx -Veterans Crisis Line , press 1 Http://www.veteranscrisisline.net/ Information for local mental health crisis line contact information can be found at the end of this list of resources. Support for Caregivers (Respite) and Independent Living Resources Respite care or short-term relief is a time for families and primary caregivers to restore and strengthen their ability to continue providing care for an adult with special needs - i. e., mental or physical disabilities, chronic illness or medical fragility, or at risk of abu se or neglect. Research has shown that there are many benefits and cost savings for everyone involved in respite care, from a micro level of improving the family stability to the macro level of saving billions of dollars in the national healthcare cost. (ARCH National Respite Network's factsheet on cost benefits of respite, updated December 2009) Sometimes families find they can draw enough support from family and friends if they are ab le to help give the primary caregiver breaks from cooking, cleaning or other caregiving acti vities at regularly scheduled times. But other times families need additional supports to he lp relieve the primary caregiver and ensure the patient has all the support they need. Your family may need to reach out to your local community centers, your senior or day center, you r yazidism community, or any other community in which you are a member to ask for support. Remember to be specific in your request i.e I could really use 2 hours every week on morning for someone to stay with my father while I swim laps and get a break. Fortunately, many supports available to help caregivers are also available to individuals w ho reside alone so that individuals can continue to be independent safely despite deficits. Local Resources: 211 Info A website data base and live phone line (call 211) and text service which conn ects the people of [place] and [facility] with the community resources they need. 2 Physician Practice [employer] Home Instead (190.233.0365) This is a [employer] which can provide in home assistance at a cost to the family. [place] Project [place] OPI is a program which helps seniors 60 and over continue to live independently and safely living in their own home. OPI provides individualized personal care, housekeeping, and case management support. http://www.[place].gov/dhs/spwpd/pages/ltc/inhome.aspx#opi [place] Independent Living Resources: [place] Statement Of Independent Living Resources: Promote the philosophy of Independent L iving by creating opportunities, encouraging choices, advancing equal access, and furthering the level of independence for all people with disabilities. [phone] [facility] (936.361.9621) Services are targeted to people who are not Medicaid eligible. The [facility] coronado has information about in-home care, how to find the medical equipment you need, how to arrange for home delivered meals, how to apply for Medicaid, and much more. Meals on Wheels (www.mealsonwheelspeople.org) Meals on Wheels are hot, nutritious lunches that are delivered Friday through Friday betwee n 11 a.m. and 1 p.m. to homebound elderly age 60 and older. Seniors must live in [facility] in [place] or [facility] in [place] to be eligible to receive meal s. Call to request meals at [phone] in [facility] and [facility] and toll free in [facility] at . Most of the the [facility] in [place] have a Meals on Wheels Program, and information on local [facility] yo-mi-pudaki services can be obtained through local Area Agency on Aging Offices. [place] Vocational Rehabilitation Service (OVRS) ( ) http://www.[place].gov/DHS /vr/Pages/index.aspx [place] Area Agency on Aging http://www.[place].gov/dhs/spwpd/pages/offices.aspx There are 17 Area Agencies on Aging across [place] that administer and support community-bas ed care services. AAAs advocate for older adults living in their area, develop community-based long-term care services to meet the needs of those adults and administer funds to implement services. Most services coordinated by AAAs are provided through community service providers at the local level. This section contains program information designed for staff members of [place]'s AAAs . Aging and Disability Resource Connection of [place] https://adrcoforegon.org/gdmphu-rdyckkq-gsk-independent-living.php [facility] is a resource directory for [place] families, caregivers and consumers seekin g information about long-term supports and services. Here you will find quick and easy acces s to resources in your community. If you cannot find the information you are looking for or wish to talk to someone in person, please call us toll free at 0-616-EZISAINT [facility] () [place] Caregiver Support Line http://www.caregiver.[place].gov/ Toll free : Also check with your private health insurance organization, as respite care may also be inc luded in the coverage. Support Groups for Families Living with Aphasia Individuals and families affected by aphasia face unique challenges. Support specifically d esigned for these people is limited. Three groups have formed in the [place], [place] area t hat provide both the individual experiencing aphasia and family members the opportunity to d evelop a sense of community with others impacted by aphasia. These groups are organized and run by participants. Faculty and students from [facility] s Department of S peech and Hearing Sciences work with survivors and families as they strive to improve and oleary rvive this condition. Groups are free of charge, but do ask for small contributions to be gi itz to the churches that have donated space. Regular attendance is not required, but familie s feel that attending often is beneficial to everyone. There are several groups in the [facility] for individuals and families living wit h aphasia: [facility] Continuous Improvement Group When: Each Friday 11:00 12:00 [facility] [address] [place] [address]. Contact: Luis F Soto Juliana [email or web address] [facility] Speak EZ group When: Odd numbered Saturdays (i.e. March 21) 10:00 12:00 Where: [facility] [address] Contact: Trent Amaya [phone] [facility] Aphasia Group When: & Friday of each month 10:00 12:00 Where: [facility] Room varies watch for directional signs Contact: Aruna Hampton [phone] [email or web address] The [employer] A community music group for stroke survivors. Stroke survivors, spouses, partners, and care givers are invited to join for an hour of playing instruments and singing. Every Friday, 11:30-12:30 at the [facility], [address] [place] [facility] [place] [address]. Info rmation contact: Mariana Vieira, , Brain Injury Haven of [place] http://www.biaoregon.org/ National Stroke Association http://www.stroke.org/ .STROKES (787.6537) National Center on Caregiving/ Family Caregiver Haven www.caregiver.org Established in 2000 as a program of Family Caregiver Haven, the National Center on Careg iving (NCC) works to advance the development of high-quality, cost-effective policies and pr ograms for caregivers in every state in the country. Uniting research, public policy and ser vices, the [facility] serves as a central source of information on caregiving and long-term care is sues for policy makers, service providers, media, funders and family caregivers throughout t country. services include: Caregiver Information & Assistance: personalized help to anjum ntify local resources and services for families, caregivers and providers nationwide, as wel l as our fact sheets and publications on a wide array of caregiving topics and health issues . Note: This fact sheet is compiled from general, publicly available medical information and should not be considered recommended treatment for any particular individual. Stroke survivo rs should consult their doctors about any personal medical concerns. [facility] Crisis Line Information: [facility] Mental [facility] Access Crisis Number (days) or (after hours) [facility] Mental Health Program Access or Crisis Number [facility] Access Crisis Number [facility] Access Crisis Number [facility] Health, [facility]. Access Crisis Number or (after hours) [facility] Mental Health Program Access Crisis Number (24 hours) [facility] Mental Health Program Access Crisis Number (after hours) [facility] Mental Health Program Access Crisis Number [facility] Access Crisis Number (24 hours) or [facility] [place] Health and [facility]. Access Crisis Number [facility] Living Branch Office Access Crisis Number [address] [facility] Access Crisis Number or 911 [facility] Counseling & Guidance Service Access Crisis Number [facility] Living Access Crisis Number [facility] Access Crisis Number [facility] Mental Health Program Access Crisis Number (24 hours) [facility] Mental Health Programs Access Crisis Number (24 hours) [facility] Access Crisis Number [facility] Human Services Access Crisis Number [facility] Human Services Access Crisis Number (24 hours) [facility] Mental Health Program Access Crisis Number (days) (after hours) [facility] Mental Health Access Crisis Number (days) (after hours) [facility] Behavioral Health Access Crisis Number [facility] Access Crisis Number [facility] Access Crisis Number 911 [facility] Human Services Access Crisis Number Toll-free at [facility] Mental Health Access Crisis Number (days) (after hours) [facility] Behavioral Health for Living Access Crisis Number [facility] Access Crisis Number or [facility] Behavioral Health Access Crisis Number (24 hours) [place] [facility] Access Crisis Number [facility] Health Center Access Crisis Number [facility] Living Access Crisis Number (after hours) [facility] Mental Health Access Crisis Number [facility] Behavioral Health Access Crisis Number [address] [facility] Mental Health Program Access Crisis Number (days) (after hours) documented in this encounter Medications at Time [...] + + + +---------+ + + | dexamethasone 2 mg | Take 1 tablet by | 20 | 0 | 08/23/19 | | | oral tablet | mouth every twelve | tablet | | 17 | 7 | | | hours for 10 days. | | | | | + + + +---------+ + + documented as of this encounter [employer] Jeannine Pelayo PA-C - 08/22/2016 8:04 AM PDTFormatting of this note might be differen t from the original. Neurosurgery Progress Note Hospital Day:5 Author; Jeannine Pelayo PA-C Attending Physician: Nolvia Delgado MD Interval Hx: - No acute events overnight. - CT Head WO completed this AM. - Patient states she feels "great" and is ready to discharge. Denies any complaints. Last Vitals: BP 120/92 | Pulse 75 | Temp 36.3 C (97.3 F) | RR 18 | Ht 1.676 m (5' 6") | Wt 97.5 kg (214 lb 15.2 oz) | SpO2 93% | BMI 34.69 kg/(m^2) O2 Delivery Device: None (room air) (08/22/16 0523) 24 Hour Vital Min/Max: Systolic (24hrs), Av , Min:120 , Max:139 Diastolic (24hrs), Av, Min:70, Max:115Pul se Min: 65 Max: 99 Temp Min: 36.3 C (97.3 F) Max: 36.6 C (97.9 F) Resp Min: 16 Max: 18 SpO2 Min: 93 % Max: 98 % Intake/Output Summary (Last 24 hours) at 08/22/16 0804 Last data filed at 08/22/16 0720 Gross per 24 hour Intake 1084 ml Output 1225 ml Net -141 ml Exam: Alert, oriented x3 to self, location, and date. Speech clear, fluent. Pupils equal. Left cranial nerve 6 palsy, roaming gaze. EOMI. LT sensation intact. Face s ymmetric. Tongue midline. Sensation: LT sensation intact in all 4 extremities Motor: Moving all extremities > AG. All extremities with some degree of contracture, worst in the RLE. Labs: CBC with diff last 72 hours (or 3 results) Recent Labs 08/20/16 0642 08/21/16 0633 08/22/16 0650 WBC 13.41* 12.95* 13.67* HB 14.9 15.1 15.2 HCT 44.3 44.4 44.2 PLT 293 275 296 Chemistries: Last 72 Hours (or 3 results): Recent Labs 08/20/16 0642 08/21/16 0633 08/22/16 0650 NA 140 138 136 K 4.1 4.1 4.3 CL 108 108 104 BICARB 25 22 22 BUN 12 10 11 CR 0.77 0.59* 0.58* GLU 93 98 95 CA 8.9 8.7 8.7 MG 2.3 2.2 2.3 PO4 2.5 2.5 2.5 Current Medications: acetaminophen (TYLENOL) tablet 650 mg, 650 mg, oral, Q6H PRN OR [DISCONTINUED] acetamin ophen (TYLENOL) tablet 650 mg, 650 mg, feeding tube, Q6H PRN OR [DISCONTINUED] acetamino phen (TYLENOL) suppository 650 mg, 650 mg, rectal, Q6H PRN baclofen (LIORESAL) tablet 5 mg, 5 mg, oral, HS bisacodyl (DULCOLAX) suppository 10 mg, 10 mg, rectal, DAILY PRN dexamethasone (DECADRON) tablet 2 mg, 2 mg, oral, Q12H (Scheduled) dextrose in water injection 12.5 g, 25 mL, intravenous, PRN glucagon (GLUCAGEN) injection 1 mg, 1 mg, intramuscular, PRN glucose chewable tablet 16 g, 16 g, oral, PRN hydrALAZINE (APRESOLINE) injection 10-20 mg, 10-20 mg, intravenous, Q10MIN PRN labetalol (TRANDATE) IV injection 10-20 mg, 10-20 mg, intravenous, Q10MIN PRN lamoTRIgine (LAMICTAL) tablet 100 mg, 100 mg, oral, BID metoclopramide HCl (REGLAN) injection 5-10 mg, 5-10 mg, intravenous, Q4H PRN [COMPLETED] ondansetron (ZOFRAN) injection 4 mg, 4 [...] TID PRN senna-docusate (SENOKOT S) 8.6-50 mg 2 tablet, 2 tablet, oral, BID Impression: is a 46yo lady with history of post-infections CP, seizure disorder, and hydroceph alus, who presented on 08/17/16with new bilateral L>R subdural fluid collections. Her shunt was recently turned down to 1.0, and this picture is very consistent with overdraining. She is doing very well neurologically, despite her large subdural collections, and she does not require urgent surgical intervention. We have raised thesetting of her shunt to 2.5to se e if this helps her both symptomatically and radiographically. Plan: Neuro: Neuro intact. Denies any complaints. Continue neuro checks. - Repeat CT Head WO this AM - stable and patient without concerning symptoms. - Dexamethasone 2 mg Q12H. - Pain control and spasticity control with Baclofen, APAP and Oxycodone. HEENT: Legally blind CV: HD stable. Pulm: IS, cough/deep breath GI/diet: Regular diet. Anti-emetics PRN. Bowel regimen - several BM's yesterday 08/20. : Voiding independently. Musculoskeletal/skin: Routine decubitus ulcer prevention Endo: No active issues ID/Heme: Afebrile, stable leukocytosis - likely steroid related. Sz ppx: Continue Lamictal 125 mg BID. DVT ppx: SCDs while in bed; holding any ppx Lovenox at this time. Rehab: PT/OT - return to prior living arrangements. Dispo: Discharge today to prior living arrangement. Jeannine Pelayo PA-C [facility] [address] [address] [id number] Jeannine Rivas PA-C - 08/21/2016 8:24 AM PDTFormatting of this note might be different from the origin al. Neurosurgery Progress Note Hospital Day:4 Author; Jeannine Pelayo PA-C Attending Physician: Nolvia Delgado MD Interval Hx: - No acute events overnight. - No complaints this AM. Last Vitals: BP 109/67 | Pulse 70 | Temp 36.4 C (97.5 F) | RR 16 | Ht 1.676 m (5' 6") | Wt 97.5 kg (214 lb 15.2 oz) | SpO2 95% | BMI 34.69 kg/(m^2) O2 Delivery Device: None (room air) (08/21/16 0449) 24 Hour Vital Min/Max: Systolic (24hrs), Av , Min:109 , Max:142 Diastolic (24hrs), Av, Min:63, Max:102Pul se Min: 66 Max: 80 Temp Min: 36.4 C (97.5 F) Max: 37 C (98.6 F) Resp Min: 16 Max: 16 SpO2 Min: 94 % Max: 97 % Intake/Output Summary (Last 24 hours) at 08/21/16 0825 Last data filed at 08/21/16 0400 Gross per 24 hour Intake 1100 ml Output 800 ml Net 300 ml Exam: Alert, oriented x3 to self, location, situation, and year. Speech clear, fluent. Pupils equal. Left cranial nerve 6 palsy, roaming gaze. EOMI. Face symmetric. Tongue midl ine. Sensation: LT sensation intact in all 4 extremities Motor: Moving all extremities > AG. All extremities with some degree of contracture, worst in the RLE. Labs: CBC with diff last 72 hours (or 3 results) Recent Labs 08/19/16 01008/20/1642 08/21/16 0633 WBC 15.94* 13.41* 12.95* HB 14.5 14.9 15.1 HCT 42.9 44.3 44.4 PLT 276 293 275 Chemistries: Last 72 Hours (or 3 results): Recent Labs 08/19/16 01008/20/1642 08/21/16 0633 NA 141 140 138 K 4.1 4.1 4.1 CL 110* 108 108 BICARB 21 25 22 BUN 14 12 10 CR 0.77 0.77 0.59* GLU 103* 93 98 CA 8.8 8.9 8.7 MG 2.3 2.3 2.2 PO4 3.4 2.5 2.5 Current Medications: acetaminophen (TYLENOL) tablet 650 mg, 650 mg, oral, Q6H PRN OR [DISCONTINUED] acetamin ophen (TYLENOL) tablet 650 mg, 650 mg, feeding tube, Q6H PRN OR [DISCONTINUED] acetamino phen (TYLENOL) suppository 650 mg, 650 mg, rectal, Q6H PRN baclofen (LIORESAL) tablet 5 mg, 5 mg, oral, HS baclofen (LIORESAL) tablet 5 mg, 5 mg, oral, BID PRN bisacodyl (DULCOLAX) suppository 10 mg, 10 mg, rectal, DAILY PRN dexamethasone (DECADRON) tablet 2 mg, 2 mg, oral, Q12H (Scheduled) dextrose in water injection 12.5 g, 25 mL, intravenous, PRN glucagon (GLUCAGEN) injection 1 mg, 1 mg, intramuscular, PRN glucose chewable tablet 16 g, 16 g, oral, PRN hydrALAZINE (APRESOLINE) injection 10-20 mg, 10-20 mg, intravenous, Q10MIN PRN labetalol (TRANDATE) IV injection 10-20 mg, 10-20 mg, intravenous, Q10MIN PRN lamoTRIgine (LAMICTAL) tablet 125 mg, 125 mg, oral, BID metoclopramide HCl (REGLAN) injection 5-10 mg, 5-10 mg, intravenous, Q4H PRN [COMPLETED] ondansetron (ZOFRAN) injection 4 mg, 4 [...] TID PRN senna-docusate (SENOKOT S) 8.6-50 mg 2 tablet, 2 tablet, oral, BID Impression: is a 46yo lady with history of post-infections CP, seizure disorder, and hydroceph alus, who presented on 08/17/16with new bilateral L>R subdural fluid collections. Her shunt was recently turned down to 1.0, and this picture is very consistent with overdraining. She is doing very well neurologically, despite her large subdural collections, and she does not require urgent surgical intervention. We have raised thesetting of her shunt to 2.5to se e if this helps her both symptomatically and radiographically. Plan: Neuro: Neuro intact. Denies any complaints. Continue neuro checks. Will discuss with staff, likely will complete another CT Head WO on , 08/22. - Dexamethasone 2 mg Q12H. - Pain control and spasticity control with Baclofen, APAP and Oxycodone. HEENT: Legally blind CV: HD stable. Pulm: IS, cough/deep breath GI/diet: Regular diet. Anti-emetics PRN. Bowel regimen - several BM's yesterday 08/20. : Voiding independently. Musculoskeletal/skin: Routine decubitus ulcer prevention Endo: No active issues ID/Heme: Afebrile, improving leukocytosis - likely steroid related. Sz ppx: Continue Lamictal 125 mg BID. DVT ppx: SCDs while in bed; holding any ppx Lovenox at this time. Rehab: PT/OT - will likely return to prior living arrangements. Dispo: Pending hospital course and repeat CT Head. Jeannine Pelayo PA-C [facility] [address] [address] [id number] Jeannine Rivas PA-C - 08/20/2016 8:16 AM PDTFormatting of this note might be different from the origin al. Neurosurgery Progress Note Hospital Day:3 Author; Jeannien Pelayo PA-C Attending Physician: Nolvia Delgado MD Interval Hx: - No acute events overnight. - Patient is endorsing no complaints. Denies headaches, confusion, nausea/vomiting, weaknes s. Last Vitals: BP 104/69 | Pulse 82 | Temp 37.1 C (98.8 F) | RR 16 | Ht 1.676 m (5' 6") | Wt 97.5 kg (214 lb 15.2 oz) | SpO2 95% | BMI 34.69 kg/(m^2) O2 Delivery Device: None (room air) (08/20/16 042) 24 Hour Vital Min/Max: Systolic (24hrs), Av , Min:104 , Max:131 Diastolic (24hrs), Av, Min:57, Max:97Puls e Min: 61 Max: 82 Temp Min: 36.6 C (97.9 F) Max: 37.1 C (98.8 F) Resp Min: 16 Max: 20 SpO2 Min: 93 % Max: 99 % Intake/Output Summary (Last 24 hours) at 08/20/16 0816 Last data filed at 08/20/16 0436 Gross per 24 hour Intake 905 ml Output 225 ml Net 680 ml Exam: Alert, oriented x3 to self, location, date, and situation. Speech clear, fluent. Pupils equal. Left cranial nerve 6 palsy, roaming gaze. Face symmetric. Tongue midline. Sensation: LT sensation intact in all 4 extremities Motor: Complaint Clerk Bicep Tricep Delt R 5 5 5 5 L 5 5 5 5 Contractures in all extremities, most prominent in RLE. Labs: CBC with diff last 72 hours (or 3 results) Recent Labs 08/18/16 0015 08/19/16 0105 08/20/16 0642 WBC 10.29 15.94* 13.41* HB 14.6 14.5 14.9 HCT 43.3 42.9 44.3 PLT 300 276 293 Chemistries: Last 72 Hours (or 3 results): Recent Labs 08/18/16 0015 08/18/16 0806 08/19/16 0105 08/20/16 0642 NA 145 -- 141 140 K 4.2 -- 4.1 4.1 CL 112* -- 110* 108 BICARB 22 -- 21 25 BUN 11 -- 14 12 CR 0.68 -- 0.77 0.77 GLU 73 90 103* 93 CA 8.9 -- 8.8 8.9 MG 2.4 -- 2.3 2.3 PO4 3.3 -- 3.4 2.5 Current Medications: acetaminophen (TYLENOL) tablet 650 mg, 650 mg, oral, Q6H PRN OR acetaminophen (TYLENOL) tablet 650 mg, 650 mg, feeding tube, Q6H PRN OR acetaminophen (TYLENOL) suppository 650 mg, 650 mg, rectal, Q6H PRN baclofen (LIORESAL) tablet 5 mg, 5 mg, oral, HS baclofen (LIORESAL) tablet 5 mg, 5 mg, oral, BID PRN bisacodyl (DULCOLAX) suppository 10 mg, 10 mg, rectal, DAILY PRN dexamethasone (DECADRON) tablet 2 mg, 2 mg, oral, Q12H (Scheduled) dextrose in water injection 12.5 g, 25 mL, intravenous, PRN glucagon (GLUCAGEN) injection 1 mg, 1 mg, intramuscular, PRN glucose chewable tablet 16 g, 16 g, oral, PRN hydrALAZINE (APRESOLINE) injection 10-20 mg, 10-20 mg, intravenous, Q10MIN PRN labetalol (TRANDATE) IV injection 10-20 mg, 10-20 mg, intravenous, Q10MIN PRN lamoTRIgine (LAMICTAL) tablet 125 mg, 125 mg, oral, BID metoclopramide HCl (REGLAN) injection 5-10 mg, 5-10 mg, intravenous, Q4H PRN [COMPLETED] ondansetron (ZOFRAN) injection 4 mg, 4 mg, intravenous, Q8H FOLLOWED BY ond ansetron (ZOFRAN) injection 4 mg, 4 mg, intravenous, Q8H PRN FOLLOWED BY ondansetron (ZO NIRAV) injection 4 mg, 4 mg, intravenous, Q12H PRN oxyCODONE (immediate release) (ROXICODONE) tablet 5-15 mg, 5-15 mg, oral, Q3H PRN OR ox yCODONE (immediate release) (ROXICODONE) tablet 5-15 mg, 5-15 mg, feeding tube, Q3H PRN polyethylene glycol (MIRALAX) packet 17 g, 17 g, oral, DAILY polyethylene glycol (MIRALAX) packet 34 g, 34 g, oral, TID PRN senna-docusate (SENOKOT S) 8.6-50 mg 2 tablet, 2 tablet, oral, BID Imaging: EXAM: CT head without contrast HISTORY: Subdural hematoma and hydrocephalus, shunted hydrocephalus COMPARISON: Multiple previous exams, the most recent an outside CT head from 08/17/2016 TECHNIQUE: CT of the head without contrast. FINDINGS: Brain: Right parietal approach [employer] shunt catheter remains in place with slight increase in l ateral and 3rd ventriculomegaly. The 4th ventricle remains normal in caliber. Redemonstratio n of bilateral low density subdural fluid collections with dependent hematocrit levels which demonstrate areas of scalloping along the adjacent parenchyma, likely loculated and not sig nificantly changed in size. The acute hemorrhage is slightly more conspicuous which may be o n a technical basis. There is diffuse supratentorial sulcal effacement. No significant midli ne shift. No evidence of descending herniation. The posterior fossa cisterns remain patent. Soft tissues: Unremarkable Skull and skull base: No fractures . Mastoids and middle ears are unremarkable. Face/orbits: Visualized portions are unremarkable. Paranasal sinuses: Visualized portions are unremarkable. IMPRESSION: 1. Indwelling [employer] shunt catheter with slight increase in ventriculomegaly. 2. Redemonstration of low-density subdural fluid collections with dependent hematocrit leve ls, likely representing a combination of subdural hygromas and acute hematomas. I have personally reviewed the images and, if necessary, edited the report. I agree with the report as now presented. Impression: is a 46yo lady with history of post-infections CP, seizure disorder, and hydroceph alus, who presented on 08/17/16 with new bilateral L>R subdural fluid collections. Her shunt w as recently turned down to 1.0, and this picture is very consistent with overdraining. She i s doing very well neurologically, despite her large subdural collections, and she does not r equire urgent surgical intervention. We have raised the setting of her shunt to 2.5 to see i f this helps her both symptomatically and radiographically. Plan: Neuro: Neuro intact. Denies any complaints. Continue neuro checks. Will discuss with staff, likely will complete another CT Head WO on , 08/22. - Dexamethasone 2 mg Q12H. - Pain control and spasticity control with Baclofen, APAP and Oxycodone. HEENT: Legally blind CV: HD stable. Pulm: IS, cough/deep breath GI/diet: Regular diet. Anti-emetics PRN. Bowel regimen - pushing bowel meds today. : Voiding independently. Musculoskeletal/skin: Routine decubitus ulcer prevention Endo: No active issues ID/Heme: Afebrile, improving leukocytosis - likely steroid related. Sz ppx: Continue Lamictal 125 mg BID. DVT ppx: SCDs while in bed; holding any ppx Lovenox at this time. Rehab: PT/OT today Dispo: Pending hospital course and repeat CT Head. Jeannine Pelayo PA-C [facility] [address] [address] [id number] Cristina Romero MD - 08/19/2016 1:52 PM PDT . Neuroscience Intensive Care Unit Attending Progress Note Attending Pager #[phone] ICU Admission Reason Most Recent Value ICU Admission reason Acute on Chronic Subdural Hematomas filed at 08/17/2016 1532 Hospital admission dx: large chronic subdural with acute component 2 Days in ICU 2 Days in Hospital Abbreviated HPI / Daily Assessment Ms. 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 24 Hour Events: CT this morning with hygroma stable size, reports she is at her physiologic baseline. Chronic seizure disorder; chronic spasticity: Continue lamotrigine for seizures and baclofe n for spasms. Shunt reprogrammed to increased pressure to reduce potential space for fluid collections but also increases risk of herniation or symptomatic hydrocephalus. No plans for immediate surgical intervention for hygromas. Continue dexamethasone to facilitate resorption of blood products. Constipation: will increase bowel regimen SCDs for DVT PPX. Hospital Problems Priority POA Nervous Acute on chronic intracranial subdural hematoma (HCC) 1 Yes Hydrocephalus 2 Yes Seizure disorder (HCC) Yes Eye/Vision Blindness and low vision Yes Musculoskeletal Spasticity Yes Other At risk for electrolyte imbalance Yes At risk for constipation Yes At risk for deep venous thrombosis Yes NSICU treatment team members Provider Role Specialty Ipt Neurosurgery #[id number] Treatment Team Neurological Surgery Ipt Critical Care Nsicu #[id number] Treatment Team -- Code Status Code Status Full Code The Advanced Care Note for this patient can be found under the notes tab in chart review. Quality section Constitutional: She appears well-developedand well-nourished Cardiovascular: normal rate, regular rhythm, normal heart soundsand intact distal pulses Pulmonary: effort normaland breath sounds normal. Abdominal: Abdomen is soft. bowel sounds are normal. Skin: Skin is warmand dry. Psychiatric: She has a normal mood and affect. normal thou ght contentand judgmentnormal. Her behavior is normal. vitals reviewed. Physical exam Comments AAO x4 in no acute distress. Speech clear and fluent. Denies pain or headach e. PERRLA, nystagmus bilaterally. EOMI. Vision intact at a close distance with no dipl opia or blurry vision. Far sighted legal blindness, basline. Mild left tongue deviation. Face symmetric. RUE and RLE weakness 5-/5 gross motor strength. LUE and LLE full stre ngth 5/5. Sensation and proprioception intact throughout. Coordination difficulties thro ughout. I have spent a total of 36 minutes in the direct care and management of this patient indepe ndent of any time spent teaching or performing any separately billable procedures. I reviewe d the documented findings, all data and the recent imaging available. Greater than 50% of th is time was spent on counseling and coordination of care.Seen with PA/[employer]AF[employer]ER[employer] Ms Rojsa. Please see their note for details. I reviewed the documented findings, all data and the recent imaging available. Date of Service: 08/19/2016 Author:Cristina Osullivan MD [address] [id number] signed by Cristina Osullivan MD at 08/19/2016 5:30 PM PD Osvaldo Rodriguez - 08/19/2016 6:03 AM PDT NEUROSURGERY PROGRESS NOTE Hospital Day #: 2 Attending: Nolvia Delgado MD Interval Events: No acute events ovenright Subjective: No new complaints Objective: Last Vitals: BP 96/60 | Pulse 65 | Temp 36.9 C (98.4 F) | RR 15 | Ht 1.676 m (5' 6") | Wt 95 kg (209 lb 7 oz) | SpO2 98% | BMI 33.8 kg/(m^2) 24 Hour Vital Min/Max: Systolic (24hrs), Av , Min:96 , Max:127 Diastolic (24hrs), Av, Min:56, Max:86 Pulse Min: 61 Max: 144 Temp Min: 36.5 C (97.7 F) Max: 37.2 C (99 F) Resp Min: 12 Max: 31 SpO2 Min: 96 % Max: 99 % Intake/Output Summary (Last 24 hours) at 08/19/16 0603 Last data filed at 08/19/16 0400 Gross per 24 hour Intake 775 ml Output 0 ml Net 775 ml Last 24 hour min/max Temp: 36.9 C (98.4 F) Temp Min: 36.5 C (97.7 F) Max: 37.2 C (99 F) Pulse: 65 Pulse Min: 61 Max: 144 Resp: 15 Resp Min: 12 Max: 31 BP: 96/60 BP Min: 96/60 Max: 127/86 SpO2: 98 % SpO2 Min: 96 % Max: 99 % Body mass index is 33.8 kg/(m^2). I/O/Drains Current Shift I/O/Drains Last 3 Completed Shifts 08/18 2301 - 08/19 0700 In: 200 [P.O.:160; I.V.:40] Out: - 08/17 2300 - 08/18 2299 In: 615 [P.O.:515; I.V.:100] Out: - No Data Recorded No Data Recorded Physical Exam: Awake, alert, oriented to self, time, place, situation PERRL gaze minimally disconjugate, apparent left cranial nerve 6 palsy, roving eyes, able to coun t fingers accurately Face symmetric Strength >AG x4 with FC; contracture present in all four extremities, most developed contra ctures in RLE SILT Prior Incisions c/d/i Labs: Complete Blood Count/Coags Recent Labs 08/17/16 1610 08/18/16 0015 08/19/16 0105 WBC 12.87* 10.29 15.94* HB 15.3 14.6 14.5 HCT 44.9 43.3 42.9 PLT 300 300 276 Invalid input(s): INR CSF Results No results for input(s): WBCCSF, RBCCSF, GLUCOSECSF, PROTEINCSF in the last 8640 hours. Chemistry Recent Labs 08/17/16 1610 08/18/16 0015 08/18/16 0806 08/19/16 0105 NA 140 -- 145 -- 141 K 3.9 -- 4.2 -- 4.1 CL 109* -- 112* -- 110* BICARB 24 -- 22 -- 21 BUN 10 -- 11 -- 14 CR 0.68 -- 0.68 -- 0.77 GLU 80 < > 73 90 103* CA 8.9 -- 8.9 -- 8.8 MG 2.4 -- 2.4 -- 2.3 PO4 -- -- 3.3 -- 3.4 < > = values in this interval not displayed. Culture Results URINE CULTURE [facility] (no units) Date Value 07/02/2016 See Cx Results (A) CULT, URINE SCREEN (no units) Date Value 07/02/2016 Positive (A) Current Facility-Administered Medications Medication Dose Route Frequency acetaminophen (TYLENOL) tablet 650 mg 650 mg oral Q6H PRN Or acetaminophen (TYLENOL) tablet 650 mg 650 mg feeding tube Q6H PRN Or acetaminophen (TYLENOL) suppository 650 mg 650 mg rectal Q6H PRN baclofen (LIORESAL) tablet 5 mg 5 mg oral HS baclofen (LIORESAL) tablet 5 mg 5 mg oral BID PRN bisacodyl (DULCOLAX) suppository 10 mg 10 mg rectal DAILY PRN dexamethasone (DECADRON) tablet 2 mg 2 mg oral Q12H (Scheduled) dextrose in water injection 12.5 g 25 mL intravenous PRN glucagon (GLUCAGEN) injection 1 mg 1 mg intramuscular PRN glucose chewable tablet 16 g 16 g oral PRN hydrALAZINE (APRESOLINE) injection 10-20 mg 10-20 mg intravenous Q10MIN PRN labetalol (TRANDATE) IV injection 10-20 mg 10-20 mg intravenous Q10MIN PRN lamoTRIgine (LAMICTAL) tablet 125 mg 125 mg oral BID magnesium sulfate in water IV (RTU) 2 g 2 g intravenous PRN magnesium sulfate in water IV (RTU) 4 g 4 g intravenous PRN metoclopramide HCl (REGLAN) injection 5-10 mg 5-10 mg intravenous Q4H PRN ondansetron (ZOFRAN) injection 4 mg 4 mg intravenous Q8H PRN Followed by [START ON 08/20/2016] ondansetron (ZOFRAN) injection 4 mg 4 mg intravenous Q12H PRN oxyCODONE (immediate release) (ROXICODONE) tablet 5-15 mg 5-15 mg oral Q3H PRN Or oxyCODONE (immediate release) (ROXICODONE) tablet 5-15 mg 5-15 mg feeding tube Q3H PRN polyethylene glycol (MIRALAX) packet 17 g 17 g oral DAILY polyethylene glycol (MIRALAX) packet 34 g 34 g oral TID PRN potassium chloride SR (K-DUR) tablet 20-40 mEq 20-40 mEq oral PRN Or potassium chloride ([facility]) liquid 10% 20-40 mEq 20-40 mEq feeding tube PRN potassium chloride IV 10 mEq 10 mEq intravenous PRN senna-docusate (SENOKOT S) 8.6-50 mg 2 tablet 2 tablet oral BID sodium phosphate IV 30 mmol 30 mmol intravenous PRN sodium phosphate IV 45 mmol 45 mmol intravenous PRN sodium phosphate IV 60 mmol 60 mmol intravenous PRN Imagin08/19/16 CT Head Assessment: is a 46yo lady with history of post-infections CP, seizure disorder, and hydroceph alus, who presented on 08/17/16 with new bilateral L>R subdural fluid collections. Her shunt w as recently turned down to 1.0, and this picture is very consistent with overdraining. She i s doing very well neurologically, despite her large subdural collections, and she does not r equire urgent surgical intervention. We have raised the setting of her shunt to 2.5 to see i f this helps her both symptomatically and radiographically. Plan: - Maintain shunt at 2.5. -neuro checks -pain control -may transfer to [facility] -continue dexamethasone 2mg BID -will plan repeat imaging in a few days, sooner if there is a neurological decline -OK for diet at this time. -SCDs while in bed -No plans for OR at this time, but it's possible she will need drainage of her subdural col lections if she doesn't respond to her shunt being raised. Please page adult resident salesperson recreational vehicles [phone] with questions Osvaldo Pritchett MD, PhD PGY-2, Neurosurgery 6:03 AM, 08/19/2016 ill, Stefan Wolf [facility] - 08/19/2016 5:57 AM PDTFormatting of this note might be different from the orig inal. . Neuroscience Intensive Care Unit Team Progress Note NSICU ASSIGNED #[id number] ICU Admission Reason Most Recent Value ICU Admission reason Acute on Chronic Subdural Hematomas filed at 08/17/2016 1532 Admission dx: large chronic subdural with acute component 2 Days in ICU 2 Days in Hospital Abbreviated HPI / Daily Assessment Ms. 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 24 Hour events - no issues overnight - head CT overnight stable and unchanged from prior - neurological exam improved and pt states she is at her baseline Active Diagnosis with Assessment & Plan Priority Class POA Nervous Acute on chronic intracranial subdural hematoma (HCC) 1 Yes Overview Known small chronic SDH (stable on CT 07/28/2016). Presented to [place] ED 08/17 with incr easing confusion, found to have profound acute enlargement of SDH to 6cm, transferred to [facility] for further mgmt Current Assessment & Plan -Intermediate level of care, may transfer to [facility], Dr Delgado -q4hr neuro checks, q4hr vitals -SBP <160, normotremia, euvolemia -no immediate neurosurgical intervention at this time -repeat head CT at 0400 was stable from prior -neurological exam is improved and pt states she is at her baseline -advance activity as tolerated -advance diet as tolerated if passes swallow eval -Tylenol prn, oxycodone prn for pain - zofran prn and reglan prn for nausea Hydrocephalus 2 Yes Overview Congenital, 2/2 toxoplasmosis and viral meningitis. Multiple EVD placements, now s/p R occipital [employer] shunt placement in October [address] Delgado and team. Presented to [facility] [place] ED 08/16 with increasing confusion, found to have worsening hydrocephalus and enlarged S DH Current Assessment & Plan -repeat head CT at 0400 was stable from prior -assess for signs of hydrocephalus Seizure disorder (HCC) Yes Overview Chart history of seizure disorder, including Vagal nerve stimulator placement in 2000. Ca rla states her Vagal nerve stimulator is functional. She is also on lamotrigine for her sei zure disorder and cannot recall when her last seizure was. Current Assessment & Plan - will continue home lamotrigine Eye/Vision Blindness and low vision Yes Overview Near sighted vision intact Far sighted legal blindness Musculoskeletal Spasticity Yes Overview 2/2 cerebral palsy. Moderately well controlled with home baclofen. Has been discussing in trathecal baclofen pump trial with neurosurgery Current Assessment & Plan - will restart home baclofen Other At risk for electrolyte imbalance Yes Current Assessment & Plan - electrolyte replacement protocol At risk for constipation Yes Current Assessment & Plan - bowel regimen At risk for deep venous thrombosis Yes Current Assessment & Plan - SCDs Code Status Code Status Full Code The Advanced Care Note for this patient can be found under the notes tab in chart review. Constitutional: She appears well-developedand well-nourished Cardiovascular: normal rate, regular rhythm, normal heart soundsand intact distal pulses Pulmonary: effort normaland breath sounds normal. Abdominal: Abdomen is soft. bowel sounds are normal. Skin: Skin is warmand dry. Psychiatric: She has a normal mood and affect. normal thou ght contentand judgmentnormal. Her behavior is normal. vitals reviewed. Physical exam Comments AAO x4 in no acute distress. Speech clear and fluent. Denies pain or headach e. PERRLA, nystagmus bilaterally. EOMI. Vision intact at a close distance with no dipl opia or blurry vision. Far sighted legal blindness, basline. Mild left tongue deviation. Face symmetric. RUE and RLE weakness 5-/5 gross motor strength. LUE and LLE full stre ngth 5/5. Sensation and proprioception intact throughout. Coordination difficulties thro ughout. NSICU treatment team members Provider Role Specialty Ipt Neurosurgery #[id number] Treatment Team Neurological Surgery Ipt Critical Care Nsicu #[id number] Treatment Team -- Patient Lines/Drains/Airways Status Active Lines, Drains and Airways Name: Placement date: Placement time: Site: Days: Peripheral IV Right 22 g 08/17/16 2 Peripheral IV Left Forearm 20 g 08/17/16 1819 Forearm 1 Wound Right Anterior leg Abrasion 08/17/16 1552 leg 1 Wound Left calf Abrasion 08/17/16 1555 calf 1 Incision Right head 11/08/15 285 Incision abdomen 11/08/15 285 Quality section No CVC No navarro FAST HUG Feeding: regular diet Analgesia: Tylenol prn, oxycodone prn Sedation: none Thromboprophylaxis: SCDs Head of Bed: Head of Bed >30 degrees Ulcer Prophylaxis: not clinically indicated Glycemic Control: not clinically indicated I have spent a total of 40 Minutes independently in the direct care and management of th is patient.Time is independent of any time spent teaching or performing any separately billa ble procedures. I reviewed the documented findings, all data and the recent imaging availabl e. Date of Service: 08/19/2016 DILMA Miranda ACNP Author:DILMA Miranda [address] [address] [place] [id number] signed by DILMA Miranda at 08/19/2016 1:53 PM Nick Macario MD - 08/18/2016 11:01 PM PDT . Neuroscience Intensive Care Unit Attending Progress Note Attending Pager #[phone] ICU Admission Reason Most Recent Value ICU Admission reason Acute on Chronic Subdural Hematomas filed at 08/17/2016 1532 Hospital admission dx: large chronic subdural with acute component 1 Days in ICU 1 Days in Hospital Abbreviated HPI / Daily Assessment Ms. 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 Medical Decision Making Acute on chronic subdural hematomas/fluid collections, likely related to overdrainage of C SF/relative intracranial hypotension from [employer] shunt; chronic seizure disorder; chronic spasti city: Continue lamotrigine for seizures and baclofen for spasms. Shunt reprogrammed last nig ht to reduce potential space for fluid collections but also increases risk of herniation or symptomatic hydrocephalus. Planning CT in AM to re-evaluate these collections. She denies he adache. No changes in level of alertness. Continue dexamethasone to facilitate resorption of blood products. Constipation: will increase bowel regimen SCDs for DVT PPX. Code Status Updated to: FULL vitals and nursing note reviewed. Physical exam Her GCS eye subscore is 4. GCS verbal subscore is 5. GCS motor subscore is 6. GCS Score is 15. She is alert Hospital Problems Priority POA Nervous Acute on chronic intracranial subdural hematoma (HCC) 1 Yes Hydrocephalus 2 Yes Seizure disorder (HCC) Yes Eye/Vision Blindness and low vision Yes Musculoskeletal Spasticity Yes Other At risk for electrolyte imbalance Yes At risk for constipation Yes At risk for deep venous thrombosis Yes NSICU treatment team members Provider Role Specialty Ipt Neurosurgery #[id number] Treatment Team Neurological Surgery Ipt Critical Care Nsicu #[id number] Treatment Team -- Code Status Code Status Full Code The Advanced Care Note for this patient can be found under the notes tab in chart review. Quality section I have spent a total of 33 minutes in the direct care and management of this patient indepe ndent of any time spent teaching or performing any separately billable procedures. I reviewe d the documented findings, all data and the recent imaging available. Date of Service: 08/18/2016 Author:Nick Sheldon MD [address] [id number] signed by Nick Sheldon MD at 08/18/2016 11:37 PM PDTDurrant, Roseann Mancera MD - 08/18/2016 11:43 AM PDT . Neuroscience Intensive Care Unit Attending Progress Note Attending Pager #[phone] ICU Admission Reason Most Recent Value ICU Admission reason Acute on Chronic Subdural Hematomas filed at 08/17/2016 1532 Hospital admission dx: large chronic subdural with acute component 1 Days in ICU 1 Days in Hospital Abbreviated HPI / Daily Assessment Ms. 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 Medical Decision Making Acute on chronic subdural hematomas/fluid collections, likely related to overdrainage of C SF from [employer] shunt. Continue lamictal and baclofen for spasms. Shunt reprogrammed last night. No plans for surgical evacuation of the fluid collections currently, but this may change dep ending on change of exam. Will obtain CT of head in the am to evaluate for change. At risk f or cerebral herniation. SBP goal , 160mmHg, IV antihypertensives as needed. Regular diet. Af ebrile, no antibiotics. SCDs for DVT prophylaxis. Code Status Updated to: FULL Cardiovascular: normal rate and regular rhythm Pulmonary: effort normal. No respiratory distress. Abdominal: Abdomen is soft. She exhibits no distention. Skin: Skin is warm. vitals and nursing note reviewed. Physical exam She has normal language and normal speech.She is alert She is oriented. Comments Spastici ty of extremities, antigravity.. Hospital Problems Priority POA Nervous Acute on chronic intracranial subdural hematoma (HCC) 1 Yes Hydrocephalus 2 Yes Seizure disorder (HCC) Yes Eye/Vision Blindness and low vision Yes Musculoskeletal Spasticity Yes Other At risk for electrolyte imbalance Yes At risk for constipation Yes At risk for deep venous thrombosis Yes NSICU treatment team members Provider Role Specialty Ipt Neurosurgery #[id number] Treatment Team Neurological Surgery Ipt Critical Care Nsicu #[id number] Treatment Team -- Code Status Code Status Full Code The Advanced Care Note for this patient can be found under the notes tab in chart review. Quality section I have spent a total of 36 minutes in the direct care and management of this patient indepe ndent of any time spent teaching or performing any separately billable procedures. I reviewe d the documented findings, all data and the recent imaging available. Greater than 50% of th is time was spent on counseling and coordination of care. I saw and evaluated the patient at the bedside together with Dr. Rojas.Please see their note for details. I agree with the asse ssment and plan as described in the resident's note with the following exceptions/additions as noted. Date of Service: 08/18/2016 Roseann Eason MD Author:Roseann Eason MD [address] [id number] signed by Roseann Eason MD at 08/22/2016 11:53 PM Eli Pedraza ACN - 08/18/2016 6:36 AM PDT . Neuroscience Intensive Care Unit Team Progress Note NSICU ASSIGNED #[id number] ICU Admission Reason Most Recent Value ICU Admission reason Acute on Chronic Subdural Hematomas filed at 08/17/2016 1532 Admission dx: large chronic subdural with acute component 1 Days in ICU 1 Days in Hospital Abbreviated HPI / Daily Assessment Ms. 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 24 Hour events - admitted yesterday from [place] - stable neurological exam with no issues overnight - home baclofen and home lamictal resumed - tolerating regular diet Active Diagnosis with Assessment & Plan Priority Class POA Nervous Acute on chronic intracranial subdural hematoma (HCC) 1 Yes Overview Known small chronic SDH (stable on CT 07/28/2016). Presented to [place] ED 08/17 with incr easing confusion, found to have profound acute enlargement of SDH to 6cm, transferred to [facility] for further mgmt Current Assessment & Plan -Admit to NSICU, Dr Delgado -q2hr neuro checks, q2hr vitals -SBP <160, normotremia, euvolemia -no immediate neurosurgical intervention at this time -plans for repeat head CT at 0400 -Urgent head CT for acute neuro changes -Hydrocephalus monitoring/treatment, as above -advance activity as tolerated -advance diet as tolerated if passes swallow eval -Tylenol prn, oxycodone prn for pain - zofran prn and reglan prn for nausea Hydrocephalus 2 Yes Overview Congenital, 2/2 toxoplasmosis and viral meningitis. Multiple EVD placements, now s/p R occipital [employer] shunt placement in October [address] Delgado and team. Presented to [facility] [place] ED 08/16 with increasing confusion, found to have worsening hydrocephalus and enlarged S DH Current Assessment & Plan -assess for signs of hydrocephalus -repeat head CT at 0400 Seizure disorder (HCC) Yes Overview Chart history of seizure disorder, including Vagal nerve stimulator placement in 2000. Ca rla states her Vagal nerve stimulator is functional. She is also on lamotrigine for her sei zure disorder and cannot recall when her last seizure was. Current Assessment & Plan - will continue home lamotrigine Eye/Vision Blindness and low vision Yes Overview Near sighted vision intact Far sighted legal blindness Musculoskeletal Spasticity Yes Overview 2/2 cerebral palsy. Moderately well controlled with home baclofen. Has been discussing in trathecal baclofen pump trial with neurosurgery Current Assessment & Plan - will restart home baclofen Other At risk for electrolyte imbalance Yes Current Assessment & Plan - electrolyte replacement protocol At risk for constipation Yes Current Assessment & Plan - bowel regimen At risk for deep venous thrombosis Yes Current Assessment & Plan - SCDs Code Status Code Status Full Code The Advanced Care Note for this patient can be found under the notes tab in chart review. Constitutional: She appears well-developed and well-nourished Cardiovascular: normal rate, regular rhythm, normal heart sounds and intact distal pulses Pulmonary: effort normal and breath sounds normal. Abdominal: Abdomen is soft. bowel sounds are normal. Skin: Skin is warm and dry. Psychiatric: She has a normal mood and affect. normal thought content and judgment normal. Her behavior is normal. vitals reviewed. Physical exam Comments AAO x4 in no acute distress. Speech clear and fluent. Denies pain or headache. PERRLA, nystagmus bilaterally. EOMI. Vision intact at a close distance with no diplopia o r blurry vision. Far sighted legal blindness, basline. Mild left tongue deviation. Face s ymmetric. RUE and RLE weakness 5-/5 gross motor strength. LUE and LLE full strength 5/5. Sensation and proprioception intact throughout. Coordination difficulties throughout. NSICU treatment team members Provider Role Specialty Ipt Neurosurgery #[id number] Treatment Team Neurological Surgery Ipt Critical Care Nsicu #[id number] Treatment Team -- Patient Lines/Drains/Airways Status Active Lines, Drains and Airways Name: Placement date: Placement time: Site: Days: Peripheral IV Right 22 g 08/17/16 1 Peripheral IV Left Forearm 20 g 08/17/16 1819 Forearm 1 Wound Right Anterior leg Abrasion 08/17/16 1552 leg 1 Wound Left calf Abrasion 08/17/16 1555 calf 1 Incision Right head 11/08/15 284 Incision abdomen 11/08/15 284 Quality section No CVC No navarro FAST HUG Feeding: regular diet Analgesia: Tylenol prn, oxycodone prn Sedation: none Thromboprophylaxis: SCDs Head of Bed: Head of Bed >30 degrees Ulcer Prophylaxis: not clinically indicated Glycemic Control: not clinically indicated I have spent a total of 60 Minutes independently in the direct care and management of th is patient.Time is independent of any time spent teaching or performing any separately billa ble procedures. I reviewed the documented findings, all data and the recent imaging availabl e. Date of Service: 08/18/2016 DILMA Miranda ACNP Author:DILMA Miranda [address] [address] [place] [id number] signed by DILMA Miranda at 08/18/2016 9:43 PM IRISBuRochelle boswell MD - 08/18/2016 2:43 AM PDT NEUROSURGERY PROGRESS NOTE Author: Rochelle Ruiz MD Today's Date: 08/18/2016 Attending Physician: Nolvia Delgado MD INTERVAL UPDATE: No acute events since admission. Neurologically stable. She reports no change in how she feels so far. Shunt turned up to 2.5 on admission (previously at 1.0). OBJECTIVE: Vital signs, labs, and medications all reviewed in patient chart. NEUROLOGICAL EXAM: Awake, alert, eyes open spontaneously Appropriately conversational Deliberate but fluent speech PERRL, slightly dysconjugate Vision intact to light for distance Near vision intact Bilateral nystagmus at rest Will look toward voice, but does not track/regard Follows commands briskly x4. Right sided spasticity. Moves right side 4-/5 throughout Left side 5/5 throughout SILT Shunt incisions well healed RADIOLOGY: No new imaging. ASSESSMENT/PLAN: is a 46yo lady with history of post-infections CP, seizure disorder, and hydroceph alus, who presents with new bilateral L>R subdural fluid collections. Her shunt was recently turned down to 1.0, and this picture is very consistent with overdraining. She is doing martin y well neurologically, despite her large subdural collections, and she does not require urge nt surgical intervention. We will try raising the setting of her shunt to see if this helps her both symptomatically and radiographically. - Pt has been directly admitted to the NSICU - Maintain shunt at 2.5. - q1 hour neuro checks - OK for diet at this time. - SCDs while in bed - No plans for OR at this time, but it's possible she will need drainage of her subdural co llections if she doesn't respond to her shunt being raised. Rochelle Ruiz MD Neurological Surgery, PGY-4 documented in this en counter Plan of Treatment +--------+---------+ + + + | Date | Type | Specialty | Care Team | Description | +--------+---------+ + + + | 11/24/ | Office | Neurological Surgery | Nolvia Delgado, | | | 2019 | Visit | | MD [address] | | | | | | [facility] [place] | | | | | | [address] | | | | | | [phone] | | | | | | | | +--------+---------+ + + + documented as of this encounter Procedures + +--------+ + + + | Procedure Name | Priori | Date/Time | Associated Diagnosis | Comments | | | ty | | | | + +--------+ + + + | CBC (HEMOGRAM) ONLY | Urgent | 08/22/2016 | | Results for this | | | | 6:50 AM | | procedure are in the | | | | PDT | | results section. | + +--------+ + + + | RENAL FUNCTION SET | Urgent | 08/22/2016 | | Results for this | | (NA,K,CL,CO2,BUN,CRE | | 6:50 AM | | procedure are in the | | AT,GLUC,CA,PHOS,ALB | | PDT | | results section. | | ) | | | | | + +--------+ + + + | CBC ONLY | Urgent | 08/22/2016 | | Results for this | | | | 6:50 AM | | procedure are in the | | | | PDT | | results section. | + +--------+ + + + | MAGNESIUM, PLASMA | Urgent | 08/22/2016 | | Results for this | | | | 6:50 AM | | procedure are in the | | | | PDT | | results section. | + +--------+ + + + | CT HEAD WO CONTRAST | Routin | 08/22/2016 | | Results for this | | | e | 6:15 AM | | procedure are in the | | | | PDT | | results section. | + +--------+ + + + | CBC (HEMOGRAM) ONLY | Urgent | 08/21/2016 | | Results for this | | | | 6:33 AM | | procedure are in the | | | | PDT | | results section. | + +--------+ + + + | RENAL FUNCTION SET | Urgent | 08/21/2016 | | Results for this | | (NA,K,CL,CO2,BUN,CRE | | 6:33 AM | | procedure are in the | | AT,GLUC,CA,PHOS,ALB | | PDT | | results section. | | ) | | | | | + +--------+ + + + | CBC ONLY | Urgent | 08/21/2016 | | Results for this | | | | 6:33 AM | | procedure are in the | | | | PDT | | results section. | + +--------+ + + + | MAGNESIUM, PLASMA | Urgent | 08/21/2016 | | Results for this | | | | 6:33 AM | | procedure are in the | | | | PDT | | results section. | + +--------+ + + + | CBC (HEMOGRAM) ONLY | Urgent | 08/20/2016 | | Results for this | | | | 6:42 AM | | procedure are in the | | | | PDT | | results section. | + +--------+ + + + | RENAL FUNCTION SET | Urgent | 08/20/2016 | | Results for this | | (NA,K,CL,CO2,BUN,CRE | | 6:42 AM | | procedure are in the | | AT,GLUC,CA,PHOS,ALB | | PDT | | results section. | | ) | | | | | + +--------+ + + + | CBC ONLY | Urgent | 08/20/2016 | | Results for this | | | | 6:42 AM | | procedure are in the | | | | PDT | | results section. | + +--------+ + + + | MAGNESIUM, PLASMA | Urgent | 08/20/2016 | | Results for this | | | | 6:42 AM | | procedure are in the | | | | PDT | | results section. | + +--------+ + + + | CT HEAD WO CONTRAST | Routin | 08/19/2016 | | Results for this | | | e | 3:35 AM | | procedure are in the | | | | PDT | | results section. | + +--------+ + + + | CBC (HEMOGRAM) ONLY | Urgent | 08/19/2016 | | Results for this | | | | 1:05 AM | | procedure are in the | | | | PDT | | results section. | + +--------+ + + + | RENAL FUNCTION SET | Urgent | 08/19/2016 | | Results for this | | (NA,K,CL,CO2,BUN,CRE | | 1:05 AM | | procedure are in the | | AT,GLUC,CA,PHOS,ALB | | PDT | | results section. | | ) | | | | | + +--------+ + + + | CBC ONLY | Urgent | 08/19/2016 | | Results for this | | | | 1:05 AM | | procedure are in the | | | | PDT | | results section. | + +--------+ + + + | MAGNESIUM, PLASMA | Urgent | 08/19/2016 | | Results for this | | | | 1:05 AM | | procedure are in the | | | | PDT | | results section. | + +--------+ + + + | CAPILLARY BLOOD | Routin | 08/18/2016 | Subdural hematoma | Results for this | | GLUCOSE (NO CHG), | e | 8:06 AM | (HCC) | procedure are in the | | POC | | PDT | | results section. | + +--------+ + + + | CBC (HEMOGRAM) ONLY | Urgent | 08/18/2016 | | Results for this | | | | 12:15 AM | | procedure are in the | | | | PDT | | results section. | + +--------+ + + + | RENAL FUNCTION SET | Urgent | 08/18/2016 | | Results for this | | (NA,K,CL,CO2,BUN,CRE | | 12:15 AM | | procedure are in the | | AT,GLUC,CA,PHOS,ALB | | PDT | | results section. | | ) | | | | | + +--------+ + + + | CBC ONLY | Urgent | 08/18/2016 | | Results for this | | | | 12:15 AM | | procedure are in the | | | | PDT | | results section. | + +--------+ + + + | MAGNESIUM, PLASMA | Urgent | 08/18/2016 | | Results for this | | | | 12:15 AM | | procedure are in the | | | | PDT | | results section. | + +--------+ + + + | CARDIOLOGY | | 08/18/2016 | | Results for this | | | | 12:00 AM | | procedure are in the | | | | PDT | | results section. | + +--------+ + + + | CAPILLARY BLOOD | Routin | 08/17/2016 | Subdural hematoma | Results for this | | GLUCOSE (NO CHG), | e | 10:04 PM | (HCC) | procedure are in the | | POC | | PDT | | results section. | + +--------+ + + + | 12 LEAD ECG | Routin | 08/17/2016 | | Results for this | | | e | 9:59 PM | | procedure are in the | | | | PDT | | results section. | + +--------+ + + + | CAPILLARY BLOOD | Routin | 08/17/2016 | Subdural hematoma | Results for this | | GLUCOSE (NO CHG), | e | 5:27 PM | (HCC) | procedure are in the | | POC | | PDT | | results section. | + +--------+ + + + | CBC (HEMOGRAM) ONLY | Urgent | 08/17/2016 | | Results for this | | | | 4:10 PM | | procedure are in the | | | | PDT | | results section. | + +--------+ + + + | INR | Urgent | 08/17/2016 | | Results for this | | | | 4:10 PM | | procedure are in the | | | | PDT | | results section. | + +--------+ + + + | COMPLETE METABOLIC | Urgent | 08/17/2016 | | Results for this | | SET | | 4:10 PM | | procedure are in the | | (NA,K,CL,CO2,BUN,CRE | | PDT | | results section. | | AT,GLUC,CA,AST,ALT,B | | | | | | VINAY TOTAL,ALK | | | | | | PHOS,ALB,PROT TOTAL) | | | | | + +--------+ + + + | CBC ONLY | Urgent | 08/17/2016 | | Results for this | | | | 4:10 PM | | procedure are in the | | | | PDT | | results section. | + +--------+ + + + | FIBRINOGEN | Urgent | 08/17/2016 | | Results for this | | | | 4:10 PM | | procedure are in the | | | | PDT | | results section. | + +--------+ + + + | APTT (ACT. PART. | Urgent | 08/17/2016 | | Results for this | | THROMBO TIME) | | 4:10 PM | | procedure are in the | | | | PDT | | results section. | + +--------+ + + + | MAGNESIUM, PLASMA | Urgent | 08/17/2016 | | Results for this | | | | 4:10 PM | | procedure are in the | | | | PDT | | results section. | + +--------+ + + + | ANTIBODY SCREEN | Urgent | 08/17/2016 | | Results for this | | | | 4:09 PM | | procedure are in the | | | | PDT | | results section. | + +--------+ + + + | TYPE AND SCREEN | Urgent | 08/17/2016 | | Results for this | | | | 4:09 PM | | procedure are in the | | | | PDT | | results section. | + +--------+ + + + | ABO & RH TYPE | Urgent | 08/17/2016 | | Results for this | | | | 4:09 PM | | procedure are in the | | | | PDT | | results section. | + +--------+ + + + documented in this encounter Results CBC (HEMOGRAM) ONLY (08/22/2016 6:50 AM PDT) + + + + + + | Component | Value | Ref Range | Performed | Pathologist | | | | | At | Signature | + + + + + + | WHITE CELL | 13.67 (H) | 3.50 - 10.80 | [facility] | | | COUNT | | K/cu mm | LABORATORY | | | | | | SERVICES, | | | | | | CORE | | + + + + + + | RED CELL | 4.79 | 4.00 - 5.20 | [facility] | | | COUNT | | M/cu mm | LABORATORY | | | | | | SERVICES, | | | | | | CORE | | + + + + + + | HEMOGLOBIN | 15.2 | 12.0 - 16.0 | [facility] | | | | | g/dL | LABORATORY | | | | | | SERVICES, | | | | | | CORE | | + + + + + + | HEMATOCRIT | 44.2 | 36.0 - 46.0 % | [facility] | | | | | | LABORATORY | | | | | | SERVICES, | | | | | | CORE | | + + + + + + | MCV | 92.3 | 80.0 - 96.0 fL | [facility] | | | | | | LABORATORY | | | | | | SERVICES, | | | | | | CORE | | + + + + + + | MCHC | 34.4 | 33.0 - 35.5 | [facility] | [...] + + + + | PLATELET | 296 | 150 - 400 K/cu | [facility] | | | COUNT | | mm | LABORATORY | | | | | | SERVICES, | | | | | | CORE | | + + + + + + | MPV | 9.4 (L) | 9.7 - 12.3 fL | [...] [facility] | [address] | [place] [address] | | | SERVICES, CORE | [address] | | | + + + + + MAGNESIUM, PLASMA (08/22/2016 6:50 AM PDT) + +-------+ + + + | Component | Value | Ref Range | Performed | Pathologist | | | | | At | Signature | + +-------+ + + + | MAGNESIUM,P | 2.3 | 1.8 - 2.5 mg/dL | [facility] | | | LASMA | | | LABORATORY | | | [...] [facility] | [address] | [place] [address] | | | SERVICES, CORE | [address] | | | + + + + + RENAL FUNCTION SET (NA,K,CL,CO2,BUN,CREAT,GLUC,CA,PHOS,ALB ) (08/22/2016 6:50 AM PDT) + + + + + + | Component | Value | Ref Range | Performed | Pathologist | | | | | At | Signature | + + + + + + | GLUCOSE, | 95 | 60 - 99 mg/dL | [facility] | | | PLASMA | | | LABORATORY | | | (LAB) | | | SERVICES, | | | | | | CORE | | + + + + + + | BUN, PLASMA | 11 | 6 - 20 mg/dL | [facility] | | | (LAB) | | | LABORATORY | | | | | | SERVICES, | | | | | | CORE | | + + + + + + | CREATININE | 0.58 (L) | 0.60 - 1.10 | [facility] | | | PLASMA | | mg/dL | LABORATORY | | | (LAB) | | | SERVICES, | | | | | | CORE | | + + + + + + | EGFR | >60 | >60 mL/min | [facility] | | | - | | | LABORATORY | | | HONDURAN | | | SERVICES, | | | | | | CORE | | + + + + + + | EGFR NON | >60 | >60 mL/min | [facility] | | | -[facility]ONT[facility] | | | LABORATORY | | | RICAN | | | SERVICES, | | | | | | CORE | | + + + + + + | SODIUM, | 136 | 136 - 145 | [facility] | | | PLASMA | | mmol/L | LABORATORY | | | (LAB) | | | SERVICES, | | | | | | CORE | | + + + + + + | POTASSIUM, | 4.3 | 3.4 - 5.0 | [facility] | | | PLASMA | | mmol/L | LABORATORY | | | (LAB) | | | SERVICES, | | | | | | CORE | | + + + + + + | CHLORIDE, | 104 | 97 - 108 mmol/L | [facility] [...] + + + + | CALCIUM, | 8.7 | 8.6 - 10.2 | [facility] | | | PLASMA | | mg/dL | LABORATORY | | | (LAB) | | | SERVICES, | | | | | | CORE | | + + + + + + | CALCIUM(ALB | 9.3 | 8.6 - 10.2 | [facility] | | | CORRECTED) | | mg/dL | LABORATORY | | | | | | SERVICES, | | | | | | CORE | | + + + + + + | ALBUMIN, | 3.3 (L) | 3.5 - 4.7 g/dL | [facility] | | | PLASMA | | | LABORATORY | | | (LAB) | | | SERVICES, | | | | | | CORE | | + + + + + + | PHOSPHORUS, | 2.5 | 2.4 - 4.7 mg/dL | [facility] [...] + + + | ANION GAP | 10 | mmol/L | [facility] | | | [...] the MDRD equation recommended by the | [facility] | | National Kidney Disease Education Program. Estimated GFR | LABORATORY | | Interpretive Information: <60 mL/min/1.73 sq m | [facility] | | Chronic Kidney Disease <15 mL/min/1.73 [...] | + + + + + | [facility] | [address] | [place] [address] | | | RYNE [facility]AS | [address] | | | + + + + + CT HEAD WO CONTRAST (08/22/2016 6:15 AM PDT) + + | Specimen | + + | | + + + + + | Narrative | Performed At | + + + | CT Head WITHOUT: 08/22/16 06:15:45 Comparison studies: August | [facility] | | 2016 CT head Clinical history: Subdural hemorrhage | RADIOLOGY VOICE | | TECHNIQUE: Axial CT images of the brain from skull base to vertex, | RECOGNITION | | including portions of the face and sinuses, were obtained without | | | contrast. Supplemental 2D reformatted images were generated and | | | reviewed as needed. ADDITIONAL TECHNIQUE: None FINDINGS: Soft | | | tissues: Unremarkable Skull/Skull base: Right parietal | | | ventriculostomy catheter with the distal tip traversing the septum | | | pellucidum and terminating near the left frontal horn lateral | | | ventricle. Face/Orbits: No fractures, deformities, or masses in the | | | visualized portions. Sinuses: Visualized portions are clear. | | | Brain: There are stable bilateral concentric subdural collections with | | | likely septations within the collections resulting in focal areas of | | | distortion and mass effect. The left cerebral hemisphere has a | | | collection measuring a maximum of 2.1 cm and the right hemispheric | | | collection measures a maximum of 4.5 cm. There is enlargement of the | | | ventricular system which has minimally increased in size from prior | | | exam. There is sulcal effacement. Hyperattenuated components of the | | | subdural collections are seen posteriorly. These collections appear | | | stable in appearance from prior exam. . Additional Comments: None | | | IMPRESSION: Stable chronic appearing septated subdural collections | | | with minimal hyperattenuated components layering posteriorly. Minimal | | | increase in size of the ventricular system. Stable sulcal effacement. | | | No midline shift I have personally reviewed the images and, | | | if necessary, edited the report. I agree with the report as now | | | presented. | | + + + + + | Procedure Note | + + | Service Account, Radiant Res In Interface - 08/22/2016 8:[address] Head WITHOUT: | | 08/22/16 06:15:45Comparison studies: August 19, 2016 CT headClinical history: Subdural | | hemorrhageTECHNIQUE: Axial CT images of the brain from skull base to vertex, including | | portions of the face and sinuses, were obtained without contrast. Supplemental 2D | | reformatted images were generated and reviewed as needed.ADDITIONAL TECHNIQUE: | | NoneFINDINGS: Soft tissues: Unremarkable Skull/Skull base: Right parietal | | ventriculostomy catheter with the distal tip traversing the septum pellucidum and | | terminating near the left frontal horn lateral ventricle. Face/Orbits: No fractures, | | deformities, or masses in the visualized portions. Sinuses: Visualized portions are | | clear. Brain: There are stable bilateral concentric subdural collections with likely | | septations within the collections resulting in focal areas of distortion and mass | | effect. The left cerebral hemisphere has a collection measuring a maximum of 2.1 cm and | | the right hemispheric collection measures a maximum of 4.5 cm. There is enlargement of | | the ventricular system which has minimally increased in size from prior exam. There is | | sulcal effacement. Hyperattenuated components of the subdural collections are seen | | posteriorly. These collections appear stable in appearance from prior exam. . | | Additional Comments: NoneIMPRESSION:Stable chronic appearing septated subdural | | collections with minimal hyperattenuated components layering posteriorly. Minimal | | increase in size of the ventricular system. Stable sulcal effacement. No midline shift | | I have personally reviewed the images and, if necessary, edited the report. I agree | | with the report as now presented. | | | |I have personally reviewed [...] + +---------+ + + CBC (HEMOGRAM) ONLY (08/21/2016 6:33 AM PDT) + + + + + + | Component | Value | Ref Range | Performed | Pathologist | | | | | At | Signature | + + + + + + | WHITE CELL | 12.95 (H) | 3.50 - 10.80 | [facility] | | | COUNT | | K/cu mm | LABORATORY | | | | | | SERVICES, | | | | | | CORE | | + + + + + + | RED CELL | 4.75 | 4.00 - 5.20 | [facility] | | | COUNT | | M/cu mm | LABORATORY | | | | | | SERVICES, | | | | | | CORE | | + + + + + + | HEMOGLOBIN | 15.1 | 12.0 - 16.0 | [facility] | | | | | g/dL | LABORATORY | | | | | | SERVICES, | | | | | | CORE | | + + + + + + | HEMATOCRIT | 44.4 | 36.0 - 46.0 % | [facility] | | | | | | LABORATORY | | | | | | SERVICES, | | | | | | CORE | | + + + + + + | MCV | 93.5 | 80.0 - 96.0 fL | [facility] | | | | | | LABORATORY | | | | | | SERVICES, | | | | | | CORE | | + + + + + + | MCHC | 34.0 | 33.0 - 35.5 | [facility] | | | | | g/dL | LABORATORY | | | | | | SERVICES, | | | | | | CORE | | + + + + + + | RDW SD | 45.6 | 35.1 - 46.3 fL | [facility] | | | | | | LABORATORY | | | | | | SERVICES, | | | | | | CORE | | + + + + + + | PLATELET | 275 | 150 - 400 K/cu | [facility] | | | COUNT | | mm | LABORATORY | | | | | | SERVICES, | | | | | | CORE | | + + + + + + | MPV | 9.3 (L) | 9.7 - 12.3 fL | [...] | + + + + + | [facility] | [address] | [place] [address] | | | JUANA, RYNE | [address] | | | + + + + + MAGNESIUM, PLASMA (08/21/2016 6:33 AM PDT) + +-------+ + + + | Component | Value | Ref Range | Performed | Pathologist | | | | | At | Signature | + +-------+ + + + | MAGNESIUM,P | 2.2 | 1.8 - 2.5 mg/dL | [facility] | | | LASMA | | | LABORATORY | | | | | | JUANA, | | | | | | CORE | | + +-------+ + + + + + | Specimen | + + | Blood - Blood | | (substance) | + + + + + + + | Performing | Address | City/State/Zipcode | Phone Number | | Organization | | | | + + + + + | [facility] | [address] | [place] [address] | | | SERVICES, CORE | [address] | | | + + + + + RENAL FUNCTION SET (NA,K,CL,CO2,BUN,CREAT,GLUC,CA,PHOS,ALB ) (08/21/2016 6:33 AM PDT) + + + + + + | Component | Value | Ref Range | Performed | Pathologist | | | | | At | Signature | + + + + + + | GLUCOSE, | 98 | 60 - 99 mg/dL | [facility] [...] + + + + | CREATININE | 0.59 (L) | 0.60 - 1.10 | [facility] | | | PLASMA | | mg/dL | LABORATORY | | | (LAB) | | | SERVICES, | | | | | | CORE | | + + + + + + | EGFR | >60 | >60 mL/min | [facility] | | | - | | | LABORATORY | | | HONDURAN | | | SERVICES, | | | | | | CORE | | + + + + + + | EGFR NON | >60 | >60 mL/min | [facility] | | | -[facility] | | | LABORATORY | | | RICAN | | | SERVICES, | | | | | | CORE | | + + + + + + | SODIUM, | 138 | 136 - 145 | [facility] | | | PLASMA | | mmol/L | LABORATORY | | | (LAB) | | | SERVICES, | | | | | | CORE | | + + + + + + | POTASSIUM, | 4.1 | 3.4 - 5.0 | [facility] | | | PLASMA | | mmol/L | LABORATORY | | | (LAB) | | | SERVICES, | | | | | | CORE | | + + + + + + | CHLORIDE, | 108 [...] + + + + | CALCIUM, | 8.7 | 8.6 - 10.2 | [facility] | | | PLASMA | | mg/dL | LABORATORY | | | (LAB) | | | SERVICES, | | | | | | CORE | | + + + + + + | CALCIUM(ALB | 9.3 | 8.6 - 10.2 | [facility] | | | CORRECTED) | | mg/dL | LABORATORY | | | | | | SERVICES, | | | | | | CORE | | + + + + + + | ALBUMIN, | 3.3 (L) | 3.5 - 4.7 g/dL | [facility] | | | PLASMA | | | LABORATORY | | | (LAB) | | | SERVICES, | | | | | | CORE | | + + + + + + | PHOSPHORUS, | 2.5 | 2.4 - 4.7 mg/dL | [facility] [...] [facility] | [address] | [place] [address] | | | SERVICES, CORE | [address] | | | + + + + + CBC (HEMOGRAM) ONLY (08/20/2016 6:42 AM PDT) + + + + + + | Component | Value | Ref Range | Performed | Pathologist | | | | | At | Signature | + + + + + + | WHITE CELL | 13.41 (H) | 3.50 - 10.80 | [facility] | | | COUNT | | K/cu mm | LABORATORY | | | | | | SERVICES, | | | | | | CORE | | + + + + + + | RED CELL | 4.75 | 4.00 - 5.20 | [facility] | | | COUNT | | M/cu mm | LABORATORY | | | | | | SERVICES, | | | | | | CORE | | + + + + + + | HEMOGLOBIN | 14.9 | 12.0 - 16.0 | [facility] | | | | | g/dL | LABORATORY | | | | | | SERVICES, | | | | | | CORE | | + + + + + + | HEMATOCRIT | 44.3 | 36.0 - 46.0 % | [facility] | | | | | | LABORATORY | | | | | | SERVICES, | | | | | | CORE | | + + + + + + | MCV | 93.3 | 80.0 - 96.0 fL | [facility] | | | | | | LABORATORY | | | | | | SERVICES, | | | | | | CORE | | + + + + + + | MCHC | 33.6 | 33.0 - 35.5 | [facility] | | | | | g/dL | LABORATORY | | | | | | SERVICES, | | | | | | CORE | | + + + + + + | RDW SD | 45.3 | 35.1 - 46.3 fL | [facility] | | | | | | LABORATORY | | | | | | SERVICES, | | | | | | CORE | | + + + + + + | PLATELET | 293 | 150 - 400 K/cu | [facility] | | | COUNT | | mm | LABORATORY | | | | | | SERVICES, | | | | | | CORE | | + + + + + + | MPV | 9.2 (L) | 9.7 - 12.3 fL | [...] [facility] | [address] | [place] [address] | | | SERVICES, CORE | [address] | | | + + + + + MAGNESIUM, PLASMA (08/20/2016 6:42 AM PDT) + +-------+ + + + | Component | Value | Ref Range | Performed | Pathologist | | | | | At | Signature | + +-------+ + + + | MAGNESIUM,P | 2.3 | 1.8 - 2.5 mg/dL | [facility] | | | LASMA | | | LABORATORY | | | | | | JUANA, | | | | | | CORE | | + +-------+ + + + + + | Specimen | + + | Blood - Blood | | (substance) | + + + + + + + | Performing | Address | City/State/Zipcode | Phone Number | | Organization | | | | + + + + + | [facility] | [address] | [place] [address] | | | SERVICES, CORE | [address] | | | + + + + + RENAL FUNCTION SET (NA,K,CL,CO2,BUN,CREAT,GLUC,CA,PHOS,ALB ) (08/20/2016 6:42 AM PDT) + +---------+ + + + | Component | Value | Ref Range | Performed | Pathologist | | | | | At | Signature | + +---------+ + + + | GLUCOSE, | 93 | 60 - 99 mg/dL | [facility] [...] +---------+ + + + | CREATININE | 0.77 | 0.60 - 1.10 | [facility] | | | PLASMA | | mg/dL | LABORATORY | | | (LAB) | | | SERVICES, | | | | | | CORE | | + +---------+ + + + | EGFR | >60 | >60 mL/min | [facility] | | | - | | | LABORATORY | | | HONDURAN | | | SERVICES, | | | [...] +---------+ + + + | POTASSIUM, | 4.1 | 3.4 - 5.0 | [facility] | [...] +---------+ + + + | CALCIUM, | 8.9 | 8.6 - 10.2 | [facility] | | | PLASMA | | mg/dL | LABORATORY | | | (LAB) | | | SERVICES, | | | | | | CORE | | + +---------+ + + + | CALCIUM(ALB | 9.5 | 8.6 - 10.2 | [facility] | | | CORRECTED) | | mg/dL | LABORATORY | | | | | | SERVICES, | | | | | | CORE | | + +---------+ + + + | ALBUMIN, | 3.3 (L) | 3.5 - 4.7 g/dL | [facility] | | | PLASMA | | | LABORATORY | | | (LAB) | | | SERVICES, | | | | | | CORE | | + +---------+ + + + | PHOSPHORUS, | 2.5 | 2.4 - 4.7 mg/dL | [facility] [...] +---------+ + + + | ANION | 8 | 4 - 11 mmol/L | [facility] [...] the MDRD equation recommended by the | [facility] | | National Kidney Disease Education Program. 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 FINDINGS: Brain: | | | Right parietal approach [employer] shunt catheter remains in place with slight | | | increase in lateral and 3rd ventriculomegaly. The 4th ventricle | | | remains normal in caliber. Redemonstration of bilateral low density | | | subdural fluid collections with dependent hematocrit levels which | | | demonstrate areas of scalloping along the adjacent parenchyma, likely | | | loculated and not significantly changed in size. The acute hemorrhage | | | is slightly more conspicuous which may be on a technical basis. There | | | is diffuse supratentorial sulcal effacement. No significant midline | | | shift. No evidence of descending herniation. The posterior fossa | | | cisterns remain patent. Soft tissues: Unremarkable Skull and | | | skull base: No fractures . Mastoids and middle ears are unremarkable. | | | Face/orbits: Visualized portions are unremarkable. Paranasal | | | sinuses: Visualized portions are unremarkable. IMPRESSION: 1. | | | Indwelling PAR[employer] WORKER shunt catheter with slight increase in ventriculomegaly. | | | 2. Redemonstration of low-density subdural fluid collections with | | | dependent hematocrit levels, likely representing a combination of | | | subdural hygromas and acute hematomas. I have personally | | | reviewed the images and, if necessary, edited the report. I agree | | | with the report as now presented. | | + + + + + | Procedure Note | + + | Service Account, Soft Tissue Regeneration In Interface - 08/19/2016 10:00 AM PDT EXAM: CT head | | without contrastHISTORY: Subdural hematoma and hydrocephalus, shunted | | hydrocephalusCOMPARISON: Multiple previous exams, the most recent an outside CT head | | from 08/17/2016TECHNIQUE: CT of the head without contrast.FINDINGS:Brain: Right parietal | | approach PAR[employer] WORKER shunt catheter remains in place with slight increase in lateral and 3rd | | ventriculomegaly. The 4th ventricle remains normal in caliber. Redemonstration of | | bilateral low density subdural fluid collections with dependent hematocrit levels which | | demonstrate areas of scalloping along the adjacent parenchyma, likely loculated and not | | significantly changed in size. The acute hemorrhage is slightly more conspicuous which | | may be on a technical basis. There is diffuse supratentorial sulcal effacement. No | | significant midline shift. No evidence of descending herniation. The posterior fossa | | cisterns remain patent.Soft tissues: UnremarkableSkull and skull base: No fractures . | | Mastoids and middle ears are unremarkable.Face/orbits: Visualized portions are | | unremarkable.Paranasal sinuses: Visualized portions are unremarkable.IMPRESSION:1. 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 Redemonstration | | of low-density subdural fluid collections with dependent hematocrit levels, likely | | representing a combination of subdural hygromas and acute hematomas.I have personally | | reviewed the images and, if necessary, edited the report. I agree with the report as | | now presented. | |IMPRESSION: | | | |1. Indwelling PARISH WORKER shunt catheter with slight increase in ventriculomegaly. | | | |2. Redemonstration of low-density subdural fluid collections with dependent hematocrit leve ls, likely representing a combination of subdural hygromas and acute hematomas. | | | | | |I have [...] + +---------+ + + CBC (HEMOGRAM) ONLY (08/19/2016 1:05 AM PDT) + + + + + + | Component | Value | Ref Range | Performed | Pathologist | | | | | At | Signature | + + + + + + | WHITE CELL | 15.94 (H) | 3.50 - 10.80 | [facility] | | | COUNT | | K/cu mm | LABORATORY | | | | | | SERVICES, | | | | | | CORE | | + + + + + + | RED CELL | 4.57 | 4.00 - 5.20 | [facility] | | | COUNT | | M/cu mm | LABORATORY | | | | | | SERVICES, | | | | | | CORE | | + + + + + + | HEMOGLOBIN | 14.5 | 12.0 - 16.0 | [facility] | | | | | g/dL | LABORATORY | | | | | | SERVICES, | | | | | | CORE | | + + + + + + | HEMATOCRIT | 42.9 | 36.0 - 46.0 % | [facility] | | | | | | LABORATORY | | | | | | SERVICES, | | | | | | CORE | | + + + + + + | MCV | 93.9 | 80.0 - 96.0 fL | [facility] [...] + + + | RDW SD | 45.9 | 35.1 - 46.3 fL | [facility] | | | | | | LABORATORY | | | | | | SERVICES, | | | | | | CORE | | + + + + + + | PLATELET | 276 | 150 - 400 K/cu | [facility] | | | COUNT | | mm | LABORATORY | | | | | | SERVICES, | | | | | | CORE | | + + + + + + | MPV | 9.2 (L) | 9.7 - 12.3 fL | [...] | + + + + + | [facility] | [address] | [place] [address] | | | SERVICES, CORE | [address] | | | + + + + + MAGNESIUM, PLASMA (08/19/2016 1:05 AM PDT) + +-------+ + + + | Component | Value | Ref Range | Performed | Pathologist | | | | | At | Signature | + +-------+ + + + | MAGNESIUM,P | 2.3 | 1.8 - 2.5 mg/dL | [facility] | | | LASMA | | | LABORATORY | | | [...] [facility] | [address] | [place] [address] | | | SERVICES, CORE | [address] | | | + + + + + RENAL FUNCTION SET (NA,K,CL,CO2,BUN,CREAT,GLUC,CA,PHOS,ALB ) (08/19/2016 1:05 AM PDT) + +---------+ + + + | Component | Value | Ref Range | Performed | Pathologist | | | | | At | Signature | + +---------+ + + + | GLUCOSE, | 103 (H) | 60 - 99 mg/dL | [facility] | | | PLASMA | | | LABORATORY | | | (LAB) | | | SERVICES, | | | | | | CORE | | + +---------+ + + + | BUN, PLASMA | 14 | 6 - 20 mg/dL | [facility] | | | (LAB) | | | LABORATORY | | | | | | SERVICES, | | | | | | CORE | | + +---------+ + + + | CREATININE | 0.77 | 0.60 - 1.10 | [facility] | | | PLASMA | | mg/dL | LABORATORY | | | (LAB) | | | SERVICES, | | | | | | CORE | | + +---------+ + + + | EGFR | >60 | >60 mL/min | [facility] | | | - | | | LABORATORY | | | HONDURAN | | | SERVICES, | | | [...] +---------+ + + + | POTASSIUM, | 4.1 | 3.4 - 5.0 | [facility] | [...] + + + | TOTAL CO2, | 21 | 21 - 32 mmol/L | [facility] | | | PLASMA | | | LABORATORY | | | (LAB) | | | SERVICES, | | | | | | CORE | | + +---------+ + + + | CALCIUM, | 8.8 | 8.6 - 10.2 | [facility] | | | PLASMA | | mg/dL | LABORATORY | | | (LAB) | | | SERVICES, | | | | | | CORE | | + +---------+ + + + | CALCIUM(ALB | 9.4 | 8.6 - 10.2 | [facility] | | | CORRECTED) | | mg/dL | LABORATORY | | | | | | SERVICES, | | | | | | CORE | | + +---------+ + + + | ALBUMIN, | 3.3 (L) | 3.5 - 4.7 g/dL | [facility] | | | PLASMA | | | LABORATORY | | | (LAB) | | | SERVICES, | | | | | | CORE | | + +---------+ + + + | PHOSPHORUS, | 3.4 | 2.4 - 4.7 mg/dL | [facility] [...] + + + | ANION GAP | 10 | mmol/L | [facility] | | | | | | LABORATORY | | | | | | SERVICES, | | | | | | CORE | | + +---------+ + + + | ANION | 11 [...] | + + + + + | [facility] | [address] | [place] [address] | | | SERVICES, CORE | [address] | | | + + + + + CAPILLARY BLOOD GLUCOSE (NO CHG), POC (08/18/2016 8:06 AM PDT) + +-------+ + + + | Component | Value | Ref Range | Performed | Pathologist | | | | | At | Signature | + +-------+ + + + | BLOOD | 90 | 60 - 99 mg/dL [...] [facility] | [address] | [place], [place] | | | [facility] | [address] | [id number] | | | TESTS | | | | + + + + + CBC (HEMOGRAM) ONLY (08/18/2016 12:15 AM PDT) + + + + + + | Component | Value | Ref Range | Performed | Pathologist | | | | | At | Signature | + + + + + + | WHITE CELL | 10.29 | 3.50 - 10.80 | [facility] | | | COUNT | | K/cu mm | LABORATORY | | | | | | SERVICES, | | | | | | CORE | | + + + + + + | RED CELL | 4.64 | 4.00 - 5.20 | [facility] | | | COUNT | | M/cu mm | LABORATORY | | | | | | SERVICES, | | | | | | CORE | | + + + + + + | HEMOGLOBIN | 14.6 | 12.0 - 16.0 | [facility] | | | | | g/dL | LABORATORY | | | | | | SERVICES, | | | | | | CORE | | + + + + + + | HEMATOCRIT | 43.3 | 36.0 - 46.0 % | [facility] | | | | | | LABORATORY | | | | | | SERVICES, | | | | | | CORE | | + + + + + + | MCV | 93.3 | 80.0 - 96.0 fL | [facility] | | | | | | LABORATORY | | | | | | SERVICES, | | | | | | CORE | | + + + + + + | MCHC | 33.7 | 33.0 - 35.5 | [facility] | | | | | g/dL | LABORATORY | | | | | | SERVICES, | | | | | | CORE | | + + + + + + | RDW SD | 46.4 (H) | 35.1 - 46.3 fL | [facility] | | | | | | LABORATORY | | | | | | SERVICES, | | | | | | CORE | | + + + + + + | PLATELET | 300 | 150 - 400 K/cu | [facility] | | | COUNT | | mm | LABORATORY | | | | | | SERVICES, | | | | | | CORE | | + + + + + + | MPV | 9.1 (L) | 9.7 - 12.3 fL | [...] | + + + + + | [facility] | [address] | [place] [address] | | | SERVICES, CORE | [address] | | | + + + + + MAGNESIUM, PLASMA (08/18/2016 12:15 AM PDT) + +-------+ + + + | Component | Value | Ref Range | Performed | Pathologist | | | | | At | Signature | + +-------+ + + + | MAGNESIUM,P | 2.4 | 1.8 - 2.5 mg/dL | [facility] | | | [facility] | | | LABORATORY | | | | | | [place], | | | | | | [facility] | | + +-------+ + + + + + | Specimen | + + | Blood - Blood | | (substance) | + + + + + + + | Performing | Address | City/State/Zipcode | Phone Number | | Organization | | | | + + + + + | [facility] | [address] | [place] [address] | | | [place] | [address] | | | + + + + + RENAL FUNCTION SET (NA,K,CL,CO2,BUN,CREAT,GLUC,CA,PHOS,ALB ) (08/18/2016 12:15 AM PDT) + +---------+ + + + | Component | Value | Ref Range | Performed | Pathologist | | | | | At | Signature | + +---------+ + + + | GLUCOSE, | 73 | 60 - 99 mg/dL | [facility] | | | PLASMA | | | LABORATORY | | | (LAB) | | | SERVICES, | | | | | | CORE | | + +---------+ + + + | BUN, PLASMA | 11 | 6 - 20 mg/dL | [facility] | | | (LAB) | | | LABORATORY | | | | | | SERVICES, | | | | | | CORE | | + +---------+ + + + | CREATININE | 0.68 | 0.60 - 1.10 | [facility] | | | PLASMA | | mg/dL | LABORATORY | | | (LAB) | | | SERVICES, | | | | | | CORE | | + +---------+ + + + | EGFR | >60 | >60 mL/min | [facility] | | | - | | | LABORATORY | | | HONDURAN | | | SERVICES, | | | | | | CORE | | + +---------+ + + + | EGFR NON | >60 | >60 mL/min | [facility] | | | -[facility]ONT[facility] | | | LABORATORY | | | RICAN | | | SERVICES, | | | | | | CORE | | + +---------+ + + + | SODIUM, | 145 | 136 - 145 | [facility] | | | PLASMA | | mmol/L | LABORATORY | | | (LAB) | | | SERVICES, | | | | | | CORE | | + +---------+ + + + | POTASSIUM, | 4.2 | 3.4 - 5.0 | [facility] | | | PLASMA | | mmol/L | LABORATORY | | | (LAB) | | | SERVICES, | | | | | | CORE | | + +---------+ + + + | CHLORIDE, | 112 (H) | 97 - 108 mmol/L | [...] +---------+ + + + | CALCIUM, | 8.9 | 8.6 - 10.2 | [facility] | | | PLASMA | | mg/dL | LABORATORY | | | (LAB) | | | SERVICES, | | | | | | CORE | | + +---------+ + + + | CALCIUM(ALB | 9.5 | 8.6 - 10.2 | [facility] | | | CORRECTED) | | mg/dL | LABORATORY | | | | | | SERVICES, | | | | | | CORE | | + +---------+ + + + | ALBUMIN, | 3.3 (L) | 3.5 - 4.7 g/dL | [facility] | | | PLASMA | | | LABORATORY | | | (LAB) | | | SERVICES, | | | | | | CORE | | + +---------+ + + + | PHOSPHORUS, | 3.3 | 2.4 - 4.7 mg/dL | [facility] [...] + + + | ANION GAP | 11 | mmol/L | [facility] | | | | | | LABORATORY | | | | | | SERVICES, | | | | | | CORE | | + +---------+ + + + | ANION | 12 (H) | 4 - 11 mmol/L | [facility] [...] | + + + + + | [facility] | [address] | [place] [address] | | | JUANA, RYNE | [address] | | | + + + + + CARDIOLOGY (08/18/2016 12:00 AM PDT) + + + | Narrative | Performed At | + + + | | | + + + CAPILLARY BLOOD GLUCOSE (NO CHG), POC (08/17/2016 10:04 PM PDT) + +-------+ + + + | Component | Value | Ref Range | Performed | Pathologist | | | | | At | Signature | + +-------+ + + + | BLOOD | 92 | 60 - 99 mg/dL | [facility] [...] [facility] | [address] | [place], [place] | | | [facility] | [address] | [address] | | | TESTS | | | | + + + + + 12 LEAD ECG (08/17/2016 9:59 PM PDT) + + + + + + | Component | Value | Ref Range | Performed | Pathologist | | | | | At | Signature | + + + + + + | VENTRICULAR | 86 | bpm | [facility] | | | RATE | | | OF | | | | | | CARDIOLOGY | | + + + + + + | ATRIAL RATE | 86 | ms | [facility] | | | | | | OF | | | | | | CARDIOLOGY | | + + + + + + | P-R | 192 | ms | [facility] | | | INTERVAL | | | OF | | | | | | CARDIOLOGY | | + + + + + + | P AXIS | -4 | deg | [facility] | | | | | | OF | | | | | | CARDIOLOGY | | + + + + + + | QRS | 78 | ms | [facility] | | | DURATION | | | OF | | | | | | CARDIOLOGY | | + + + + + + | QT | 356 | ms | [facility] | | | | | | OF | | | | | | CARDIOLOGY | | + + + + + + | ISABELA-TESFAYE | 426 | ms | [facility] | | | | | | OF | | | | | | CARDIOLOGY | | + + + + + + | R AXIS | 15 | deg | [facility] | | | | | | OF | | | | | | CARDIOLOGY | | + + + + + + | T AXIS | 69 | deg | [facility] | | | | | | OF | | | | | | CARDIOLOGY | | + + + + + + | ECG | SINUS RHYTHM- NORMAL ECG | | [facility] | | | IMPRESSION | - | | OF | | | | | | CARDIOLOGY | | + + + + + + | ECG | Electronically signed | | [facility] | | | IMPRESSION | by: OMERO LOCKE | | OF | | | | 08-18-2016 09:08:53 | | CARDIOLOGY | | + + + + + + + + | Specimen | + + | | + + + + + | Narrative | Performed At | + + + | | | + + + + + + + + | Performing | Address | City/State/Zipcode | Phone Number | | Organization | | | | + + + + + | [facility] | [address] | [place], [place] | | | CARDIOLOGY | [address] | [address] | | + + + + + CAPILLARY BLOOD GLUCOSE (NO CHG), POC (08/17/2016 5:27 PM PDT) + +-------+ + + + | Component | Value | Ref Range | Performed | Pathologist | | | | | At | Signature | + +-------+ + + + | BLOOD | 85 | 60 - 99 mg/dL [...] [facility] | [address] | [place], [place] | | | [facility] | [address] | [address] | | | TESTS | | | | + + + + + CBC (HEMOGRAM) ONLY (08/17/2016 4:10 PM PDT) + + + + + + | Component | Value | Ref Range | Performed | Pathologist | | | | | At | Signature | + + + + + + | WHITE CELL | 12.87 (H) | 3.50 - 10.80 | [facility] | | | COUNT | | K/cu mm | LABORATORY | | | | | | SERVICES, | | | | | | CORE | | + + + + + + | RED CELL | 4.81 | 4.00 - 5.20 | [facility] | | | COUNT | | M/cu mm | LABORATORY | | | | | | SERVICES, | | | | | | CORE | | + + + + + + | HEMOGLOBIN | 15.3 | 12.0 - 16.0 | [facility] | | | | | g/dL | LABORATORY | | | | | | SERVICES, | | | | | | CORE | | + + + + + + | HEMATOCRIT | 44.9 | 36.0 - 46.0 % | [facility] | | | | | | LABORATORY | | | | | | SERVICES, | | | | | | CORE | | + + + + + + | MCV | 93.3 | 80.0 - 96.0 fL | [facility] | | | | | | LABORATORY | | | | | | SERVICES, | | | | | | CORE | | + + + + + + | MCHC | 34.1 | 33.0 - 35.5 | [facility] | | | | | g/dL | LABORATORY | | | | | | SERVICES, | | | | | | CORE | | + + + + + + | RDW SD | 46.1 | 35.1 - 46.3 fL | [facility] | | | | | | LABORATORY | | | | | | SERVICES, | | | | | | CORE | | + + + + + + | PLATELET | 300 | 150 - 400 K/cu | [facility] | | | COUNT | | mm | LABORATORY | | | | | | SERVICES, | | | | | | CORE | | + + + + + + | MPV | 9.1 (L) | 9.7 - 12.3 fL | [...] | + + + + + | [facility] | [address] | [place] [address] | | | SERVICES, CORE | [address] | | | + + + + + FIBRINOGEN (08/17/2016 4:10 PM PDT) + +---------+ + + + | Component | Value | Ref Range | Performed | Pathologist | | | | | At | Signature | + +---------+ + + + | FIBRINOGEN | 513 (H) | 200 - 450 mg/dL | [...] [facility] | [address] | [place] [address] | | | SERVICES, CORE | [address] | | | + + + + + APTT (ACT. PART. THROMBO TIME) (08/17/2016 4:10 PM PDT) + +-------+ + + + | Component | Value | Ref Range | Performed | Pathologist | | | | | At | Signature | + +-------+ + + + | APTT | 29.5 | 26.0 - 36.0 | [facility] | [...] Performed At | + + + | APTT Therapeutic Range: (75 - | [facility] | | 120) sec Heparin levels of 0.35 - 0.7 U/mL | LABORATORY | | | RYNE ARIAS | + + + + + + + + | Performing | Address | City/State/Zipcode | Phone Number | | Organization | | | | + + + + + | [facility] | [address] | [place] [address] | | | RYNE ARIAS | [address] | | | + + + + + INR (08/17/2016 4:10 PM PDT) + +-------+ + + + | Component | Value | Ref Range | Performed | Pathologist | | | | | At | Signature | + +-------+ + + + | INR | 0.98 [...] mech. valves (2.5 - 3.5) INR | RYNE ARIAS | + + + + + + + + | Performing | Address | City/State/Zipcode | Phone Number | | Organization | | | | + + + + + | [facility] | [address] | [place] [address] | | | RYNE ARIAS | [address] | | | + + + + + MAGNESIUM, PLASMA (08/17/2016 4:10 PM PDT) + +-------+ + + + | Component | Value | Ref Range | Performed | Pathologist | | | | | At | Signature | + +-------+ + + + | MAGNESIUM,P | 2.4 | 1.8 - 2.5 mg/dL | [facility] | | | LASMA | | | LABORATORY | | | [...] [facility] | [address] | [place] [address] | | | SERVICES, CORE | [address] | | | + + + + + COMPLETE METABOLIC SET (NA,K,CL,CO2,BUN,CREAT,GLUC,CA,AST,ALT,BILI TOTAL,ALK PHOS,ALB,PROT TOTAL) (08/17/2016 4:10 PM PDT) + +---------+ + + + | Component | Value | Ref Range | Performed | Pathologist | | | | | At | Signature | + +---------+ + + + | GLUCOSE, | 80 | 60 - 99 mg/dL | [facility] [...] +---------+ + + + | CREATININE | 0.68 | 0.60 - 1.10 | [facility] | | | PLASMA | | mg/dL | LABORATORY | | | (LAB) | | | SERVICES, | | | | | | CORE | | + +---------+ + + + | EGFR | >60 | >60 mL/min | [facility] | | | - | | | LABORATORY | | | HONDURAN | | | SERVICES, | | | [...] +---------+ + + + | CHLORIDE, | 109 [...] +---------+ + + + | CALCIUM, | 8.9 | 8.6 - 10.2 | [facility] | | | PLASMA | | mg/dL | LABORATORY | | | (LAB) | | | SERVICES, | | | | | | CORE | | + +---------+ + + + | CALCIUM(ALB | 9.4 | 8.6 - 10.2 | [facility] | | | CORRECTED) | | mg/dL | LABORATORY | | | | | | SERVICES, | | | | | | CORE | | + +---------+ + + + | BILIRUBIN | 0.6 | 0.3 - 1.2 mg/dL | [facility] | | | TOTAL | | | LABORATORY | | | | | | SERVICES, | | | | | | CORE | | + +---------+ + + + | TOTAL | 7.3 | 6.4 - 8.2 g/dL | [facility] | | | PROTEIN, | | | LABORATORY | | | PLASMA | | | SERVICES, | | | (LAB) | | | CORE | | + +---------+ + + + | ALBUMIN, | 3.4 (L) | 3.5 - 4.7 g/dL | [facility] | | | PLASMA | | | LABORATORY | | | (LAB) | | | SERVICES, | | | | | | CORE | | + +---------+ + + + | ALK PHOS | 110 (H) | 42 - 98 U/L | [facility] | | | | | | LABORATORY | | | | | | SERVICES, | | | | | | CORE | | + +---------+ + + + | AST(SGOT) | 16 | <=41 U/L | [facility] | | | | | | LABORATORY | | | | | | SERVICES, | | | | | | CORE | | + +---------+ + + + | ALT (SGPT) | 28 | <=60 U/L | [facility] | | | | | [...] +---------+ + + + | ANION | 8 | 4 - 11 mmol/L | [facility] [...] | + +---------+ + + + | BILI T CMNT | No Hemo | | [facility] | | | | | | LABORATORY | | | | | | SERVICES, | | | | | | CORE | | + +---------+ + + + | AST CMNT | No Hemo | | [facility] | | | | [...] + | [facility] | [address] | [place] [address] | | | SERVICES, CORE | [address] | | | + + + + + ANTIBODY SCREEN (08/17/2016 4:09 PM PDT) + + + + [...] | + + + + + | [facility] | [address] | [place] [address] | | | SERVICES, | [address] | | | | TRANSFUSION MEDICINE | | | | + + + + + ABO & RH TYPE (08/17/2016 4:09 PM PDT) + + + + [...] [facility] | [address] | [place] [address] | | | JUANA, | [address] | | | | TRANSFUSION MEDICINE | | | | + + + + + documented in this encounter Visit Diagnoses + + | Diagnosis | + + | Subdural hematoma (HCC) - Primary Subdural hemorrhage | + + | Seizure disorder (HCC) Unspecified epilepsy without mention of intractable epilepsy | + + | Spasticity Abnormal involuntary movements | + + | Hydrocephalus (HCC) Obstructive hydrocephalus | + + | Acute on chronic intracranial subdural hematoma (HCC) | + + | Blindness and low vision | + + | At risk for electrolyte imbalance Other specified conditions influencing health | | status | + + | At risk for constipation Other specified conditions influencing health status | + + | At risk for deep venous thrombosis Other specified conditions influencing health | | status | + + documented in this encounter Administered Medications + +--------+---------+------+------+------+ | Medication Order | MAR | Action | Dose | Rate | Site | | | Action | Date | | | | + +--------+---------+------+------+------+ + +---+ | acetaminophen (TYLENOL) tablet | | | 650 mg 650 mg, oral, EVERY 6 | | | HOURS NEEDED, Starting Sat | | | 08/17/16 at 2135, Until Meera 08/22/16 | | | at 1751, mild pain, headache, | | | fever, multimodal pain control | | + +---+ | | | + +---+ + +-------+ +------+---+---+ | baclofen (LIORESAL) tablet 5 mg | Given | 08/22/19 | 5 mg | | | | 5 mg, oral, AT BEDTIME, First | | 17 9:42 | | | | | dose on 08/17/16 at 2200, Until | | PM PDT | | | | | Discontinued | | | | | | + +-------+ +------+---+---+ +-------+ +------+---+---+ | Given | 08/21/19 | 5 mg | | | | | 17 9:26 | | | | | | PM PDT | | | | +-------+ +------+---+---+ | Given | 08/20/19 | 5 mg | | | | | 17 9:23 | | | | | | PM PDT | | | | +-------+ +------+---+---+ + +---+ | | | + +---+ | bisacodyl (DULCOLAX) | | | suppository 10 mg 10 mg, rectal, | | | DAILY NEEDED, Starting Sat | | | 08/17/16 at 1540, Until Meera 08/22/16 | | | at 1751, 2nd line for no BM in | | | past 2 days or if no response to | | | MIRALAX or if patient unable to | | | tolerate oral | | + +---+ | | | + +---+ + +-------+ +------+---+---+ | bisacodyl EC (DULCOLAX) tablet | Given | 08/20/19 | 5 mg | | | | 5 mg 5 mg, oral, ONCE, 1 dose, | | 17 12:56 | | | | | 08/19/16 at 0015 | | AM PDT | | | | + +-------+ +------+---+---+ +---+---+ | | | +---+---+ + +-------+ +------+---+---+ | dexamethasone (DECADRON) tablet | Given | 08/23/19 | 2 mg | | | | 2 mg 2 mg, oral, EVERY 12 | | 17 8:10 | | | | | HOURS, First dose on 08/18/16 | | AM PDT | | | | | at 0015, Until Discontinued | | | | | | + +-------+ +------+---+---+ +-------+ +------+---+---+ | Given | 08/22/19 | 2 mg | | | | | 17 9:42 | | | | | | PM PDT | | | | +-------+ +------+---+---+ | Given | 08/22/19 | 2 mg | | | | | 17 8:44 | | | | | | AM PDT | | | | +-------+ +------+---+---+ + +---+ | | | + +---+ | dextrose in water injection | | | 12.5 g 12.5 g (25 mL), | | | intravenous, NEEDED, Starting | | | 08/17/16 at 1540, Until Meera | | | 08/22/16 at 1751, CBG less than 70 | | | mg/dL if patient unable to take | | | PO, per Adult Hypoglycemia | | | Protocol | | + +---+ | | | + +---+ | glucagon (GLUCAGEN) injection 1 | | | mg 1 mg, intramuscular, | | | NEEDED, Starting 08/17/16 at | | | 1540, Until Meera 08/22/16 at 1751, | | | CBG less than 70 mg/dL per Adult | | | Hypoglycemia Protocol | | + +---+ | | | + +---+ | glucose chewable tablet 16 g | | | 16 g, oral, NEEDED, Starting | | | 08/17/16 at 1540, Until Meera | | | 08/22/16 at 1751, CBG less than 70 | | | mg/dL per Adult Hypoglycemia | | | Protocol | | + +---+ | | | + +---+ | hydrALAZINE (APRESOLINE) | | | injection 10-20 mg 10-20 mg, | | | intravenous, EVERY 10 MINUTES | | | NEEDED, Starting 08/17/16 at | | | 1540, Until Meera 08/22/16 at 1751, | | | BP not at goal after 2 doses of | | | labetalol OR if HR < 70. 2nd | | | line. | | + +---+ | | | + +---+ | labetalol (TRANDATE) IV | | | injection 10-20 mg 10-20 mg, | | | intravenous, EVERY 10 MINUTES | | | NEEDED, Starting 08/17/16 at | | | 1540, Until Meera 08/22/16 at 1751, | | | to achieve blood pressure goal. | | | 1st Line. | | + +---+ | | | + +---+ + +-------+ +--------+---+---+ | lamoTRIgine (LAMICTAL) tablet | Given | 08/23/19 | 100 mg | | | | 100 mg 100 mg, oral, TWICE | | 17 8:10 | | | | | DAILY, First dose (after last | | AM PDT | | | | | modification) on Fri08/21/16 at | | | | | | | 2100, Until Discontinued | | | | | | + +-------+ +--------+---+---+ +-------+ +--------+---+---+ | Given | 08/22/19 | 100 mg | | | | | 17 9:42 | | | | | | PM PDT | | | | +-------+ +--------+---+---+ +---+---+ | | | +---+---+ + +-------+ +--------+---+---+ | lamoTRIgine (LAMICTAL) tablet | Given | 08/22/19 | 125 mg | | | | 125 mg 125 mg, oral, TWICE | | 17 8:44 | | | | | DAILY, First dose on 08/17/16 | | AM PDT | | | | | at 2100, Until Discontinued | | | | | | + +-------+ +--------+---+---+ +-------+ +--------+---+---+ | Given | 08/21/19 | 125 mg | | | | | 17 9:26 | | | | | | PM PDT | | | | +-------+ +--------+---+---+ | Given | 08/21/19 | 125 mg | | | | | 17 8:35 | | | | | | AM PDT | | | | +-------+ +--------+---+---+ + +---+ | | | + +---+ | metoclopramide HCl (REGLAN) | | | injection 5-10 mg 5-10 mg, | | | intravenous, EVERY 4 HOURS | | | NEEDED, Starting 08/17/16 at | | | 1540, Until Meera 08/22/16 at 1751, | | | 2nd-line antiemetic agent for | | | nausea/vomiting unresponsive to | | | ondansetron (aka ZOFRAN); | | + +---+ | | | + +---+ + + + +---+ +---+ | NaCl 0.9%-KCl 20 mEq/L IV | Rate/Dos | 08/18/19 | | 75 mL/hr | | | infusion intravenous, | e Verify | 17 6:00 | | | | | CONTINUOUS, Starting 08/17/16 | | PM PDT | | | | | at 1545, Until 08/18/16 at | | | | | | | 1027, at 75 mL/hr | | | | | | + + + +---+ +---+ + + + + +---+ | Rate/Dose Verify | 08/18/19 | | 75 mL/hr | | | | 17 5:00 | | | | | | PM PDT | | | | + + + + +---+ | New Bag | 08/18/19 | 75 mL/hr | 75 mL/hr | | | | 17 4:15 | | | | | | PM PDT | | | | + + + + +---+ +---+---+ | | | +---+---+ + +-------+ +------+---+---+ | ondansetron (ZOFRAN) injection | Given | 08/19/19 | 4 mg | | | | 4 mg 4 mg, intravenous, EVERY 8 | | 17 8:14 | | | | | HOURS, 3 doses, First dose on Sat | | AM PDT | | | | | 08/17/16 at 1600, Last dose on Sun | | | | | | | 08/18/16 at 0800 | | | | | | + +-------+ +------+---+---+ +-------+ +------+---+---+ | Given | 08/19/19 | 4 mg | | | | | 17 12:09 | | | | | | AM PDT | | | | +-------+ +------+---+---+ | Given | 08/18/19 | 4 mg | | | | | 17 4:14 | | | | | | PM PDT | | | | +-------+ +------+---+---+ + +---+ | | | + +---+ | ondansetron (ZOFRAN) injection | | | 4 mg 4 mg, intravenous, EVERY 12 | | | HOURS NEEDED, Starting Tue | | | 08/20/16 at 1600, Until Meera 08/22/16 | | | at 1751, nausea/vomiting, first | | | line | | + +---+ | | | + +---+ | oxyCODONE (immediate release) | | | (ROXICODONE) tablet 5-15 mg 5-15 | | | mg, oral, EVERY 3 HOURS | | | NEEDED, Starting 08/17/16 at | | | 1540, Until Meera 08/22/16 at 1751, | | | moderate pain | | + +---+ | | | + +---+ + +-------+ +------+---+---+ | polyethylene glycol (MIRALAX) | Given | 08/21/19 | 17 g | | | | packet 17 g 17 g, oral, DAILY, | | 17 8:35 | | | | | First dose on 08/18/16 at 2345, | | AM PDT | | | | | Until Discontinued | | | | | | + +-------+ +------+---+---+ +-------+ +------+---+---+ | Given | 08/20/19 | 17 g | | | | | 17 12:56 | | | | | | AM PDT | | | | +-------+ +------+---+---+ + +---+ | | | + +---+ | polyethylene glycol (MIRALAX) | | | packet 34 g 34 g, oral, THREE | | | TIMES DAILY NEEDED, Starting | | | 08/17/16 at 1540, Until Meera | | | 08/22/16 at 1751, 1st line - for no | | | BM for 2 days | | + +---+ | | | + +---+ + +-------+ +--------+---+---+ | potassium chloride SR (K-DUR) | Given | 08/18/19 | 40 mEq | | | | tablet 20-40 mEq 20-40 mEq, | | 17 9:51 | | | | | oral, NEEDED, Starting Sat | | PM PDT | | | | | 08/17/16 at 1540, Until 08/19/16 | | | | | | | at 1019, hypokalemia per | | | | | | | protocol. See administration | | | | | | | instructions. | | | | | | + +-------+ +--------+---+---+ +---+---+ | | | +---+---+ + +-------+ +--------+---+---+ | senna-docusate (SENOKOT S) | Given | 08/20/19 | 1 each | | | | 4.3-25 oral dose 1 each 1 each, | | 17 12:56 | | | | | oral, ONCE, 1 dose, 08/19/16 at | | AM PDT | | | | | 0000 | | | | | | + +-------+ +--------+---+---+ +---+---+ | | | +---+---+ + +-------+ + +---+---+ | senna-docusate (SENOKOT S) | Given | 08/19/19 | 1 tablet | | | | 8.6-50 mg 1 tablet 1 tablet, | | 17 8:54 | | | | | oral, TWICE DAILY, First dose on | | PM PDT | | | | | 08/17/16 at 2100, Until | | | | | | | Discontinued | | | | | | + +-------+ + +---+---+ +-------+ + +---+---+ | Given | 08/19/19 | 1 tablet | | | | | 17 8:14 | | | | | | AM PDT | | | | +-------+ + +---+---+ | Given | 08/18/19 | 1 tablet | | | | | 17 9:51 | | | | | | PM PDT | | | | +-------+ + +---+---+ +---+---+ | | | +---+---+ + +-------+ + +---+---+ | senna-docusate (SENOKOT S) | Given | 08/23/19 | 1 tablet | | | | 8.6-50 mg 2 tablet 2 tablet, | | 17 8:10 | | | | | oral, TWICE DAILY, First dose | | AM PDT | | | | | (after last modification) on Fri | | | | | | | 08/19/16 at 0900, Until | | | | | | | Discontinued | | | | | | + +-------+ + +---+---+ +-------+ +---------+---+---+ | Given | 08/22/19 | 2 | | | | | 17 8:44 | tablets | | | | | AM PDT | | | | +-------+ +---------+---+---+ | Given | 08/21/19 | 2 | | | | | 17 8:35 | tablets | | | | | AM PDT | | | | +-------+ +---------+---+---+ +---+---+ | | | +---+---+ documented in this encounter
--- OUTSIDE RECORDS SUMMARY | ~2019-10-25 | XMS | Encounter Summary ---
Demographics + + + | Address | [address] | | | [place] [address] | + + + | Home Phone [...] Author + + + | Author | [facility] | + + + | Organization | [facility] | + + + | Address | Unknown | + + + | Phone | Unavailable | + + + Support + + + + + | Name | Relationship | Address | Phone | + + + + + | Malina Nicole | ECON | [address] | | | | | [place] | | | | | [address] | | + + + + + | Scott Mcgarry ECON | Unknown | | + + + + + Care Team Providers + +------+ + | Care Finisher Machine Name | Role | Phone | + [...] Radiology | Diagnoses | Raslan, | Rad Ct Scan | | | | | Acute on | Nolvia Liang MD | [facility] [address] | | | | | chronic | [address] | [address] | | | | | intracranial | Ave | [facility] subdural | [place], [place] | [facility] and | | | | | hematoma | [phone] | Healing, | | | | | (HCC) | Phone: | [address], | | | | | Procedures | [phone] | 3rd Floor | | | | | CT HEAD WO | Fax: | [place], [place] | | | | | [place] | [phone] | [address] | | | | | CT | | Phone: | | | | | SCAN,HEAD/BR | | [phone] | | | | | AIN,W/O | | Fax: | | | | | CONTRAST | | [phone] | | | | | MATL | [...] Radiology | Diagnoses | Raslan, | Rad Ct Scan | | | | | Acute on | Nolvia Liang MD | [facility] [address] | | | | | chronic | [address] | [address] | | | | | intracranial | Ave | [facility] | | [facility] | [place], [place] | Health and | | | | | hematoma | [address] | Healing, | | | | | (HCC) | Phone: | [address], | | | | | Procedures | [phone] | 3rd Floor | | | | | CT HEAD WO | Fax: | [place], [place] | | | | | [place] | [phone] | [address] | | | | | [place] | | Phone: | | | | | SCAN,HEAD/BR | | [phone] | | | | | AIN,W/O | | Fax: | | | | | CONTRAST | | [phone] | | | | | MATL | | | +--------+--------+ + + + + Encounter Details +--------+ + + + + | Date | Type | Department | Care Team | Description | +--------+ + + + + | 09/12/ | Hospital | Radiology/Imaging | Nolvia Delgado, | | | 2017 | Encounter | Lab at [facility] [address] | MD [address] | | | | | [address] [employer] [facility] | [place], [place] | | | | | [facility] and He[facility], | [address] | | | | | [place] [address] [facility] | [phone] | | | | | Floor [place], [place] | | | | | | [address] | | | | | | [phone] | | | +--------+ + + + [...] | | 2020 | Visit | | [address] | | | | | | [place], [place] | | | | | | [address] | | | | | | [phone] | | | | | | | | +--------+---------+ + + + documented as of this encounter Procedures + +--------+ + + + | Procedure Name | Priori | Date/Time | Associated Diagnosis | Comments | | | ty | | | | + +--------+ + + + | CT HEAD WO CONTRAST | Routin | 09/12/2016 | Acute on chronic | Results for this | | | e | 2:05 PM | intracranial | procedure are in [...]
--- OUTSIDE RECORDS SUMMARY | ~2019-10-25 | XMS | Encounter Summary ---
Demographics + + + | Address | [address] | | | [place] [address] | + + + | Home Phone [...] Author + + + | Author | [facility] | + + + | Organization | [facility] | + + + | Address | Unknown | + + + | Phone | Unavailable | + + + Support + + + + + | Name | Relationship | Address | Phone | + + + + + | Malina Nicole | ECON | [address] | | | | | [place] | | | | | [address] | | + + + + + | Scott Mcgarry ECON | Unknown | | + + + + + Care Team Providers + +------+ + | Care Window Repairer Name | Role | Phone | + [...] | +--------+ + + + + | 11/05/ | Hospital | [facility] [address] | [place], | | | 2016 - | Encounter | [address] | MD Cameron [address] | | | | | [id number] [facility] | [address] | | | 11/08/ | | [facility] [place], | [place], [place] | | | 2016 | | [place] [address] | [address] | | | | | [phone] | [phone] | | | | | | | | | | | | Than, Nathaniel D, MD | | | | | | [address] | | | | | | [place], [place] | | | | | | [address] | | | | | | [phone] | | | | | | | | +--------+ + + [...] Nathaniel Ybarra MD PCP: REENA Gusman Service: [facility] Neurosurgery Diagnoses Principal Final Diagnosis: Hydrocephalus. Additional [...] family on 11/09/2015, and the patient and/or fam briana members agree with this course of [...] on your abdominal incision in 1 cornelius chase. Destination: Destination: Home Condition on Discharge Good Follow Up Follow up at [facility] Neurosurgery Clinic, [facility], 8th Floor, [address] [place] [address]; . You will be contacted to make [...] 9:59 AM Discharging Attending: Nathaniel Ybarra MD [facility] [address] [address] [address] documented in t his encounter Medications at [...] kg/(m^2) O2 Delivery Device: None (room air) (11/09/15 0312) 24 Hour Vital Min/Max: Systolic (24hrs), Av [...] ml Net 1415 ml Labs CULTURE, URINE [facility] Status: Final result Visible to patient: Not Released Next appt: None Normal Culture Mixed Patrica, Likely Contamination Multiple Organisms are present indicating probable contamination or colonization not relate d to infection. Further work-up of these organisms may result in misleading information due to low numbers and/or mixture of organisms present. Recollection is suggested if clinically indicated. Resulting Agency: [facility] CORE LAB Specimen Collected: 11/07/15 8:07 AM [...] FU in clinic 2 weeks post op. REENA Hart-C [facility] [address]K [address] [address] [address] Pg [id number] Associated attestation - Nathaniel Ybarra MD - 11/09/2015 1:02 PM PDTI have personally perfor med a face to face diagnostic evaluation on this patient. I have reviewed and agree with the care plan. History and Exam by me shows: 45 yo F POD 1 s/p VIOLIN MECHANIC shunt. Pt states symptoms are improved. At neuro baseline. Imaging appropriate. D/C home today. Nathaniel Ybarra MD [facility] [address] [address] [address] Jason Pappas MD - 11/08/2015 1:07 PM [...] in bed Jason Pappas MD Neurosurgery PGY2 [id number] Jason Gonsales MD - 11/07/2015 8:08 PM [...] agent? No Jason Pappas MD Neurosurgery PGY2 eannine Pelayo PA-C - 11/07/2015 9:21 AM PDT Neurosurgery [...] to be com pleted. Jeannine Pelayo PA-C [facility] [address]F [address] [address] [place] [address] documented in th is encounter Plan of Treatment +--------+---------+ + + + | Date | Type | Specialty | Care Team | Description | +--------+---------+ + + + | 11/24/ | Office | Neurological Surgery | Nolvia Delgado, | | | 2019 | Visit | | [address] | | | | | | [place], [place] | | | | | | [address] | | | | | | [phone] | | | | | | | [...] | | + +---------+ + + | [facility] DEPARTMENT OF | | | | [...] | | | | | SRUTHI FABIANuthor: GEARRDO | | | | | | MD [...] | | + +---------+ + + | [facility] DEPARTMENT OF | | | | | RADIOLOGY | | | | + +---------+ + + PROCEDURE NOTE (11/08/2015 6:30 PM PDT)OPERATION RECORD (11/08/2015 1:20 PM PDT) + + | Transcriptions | + + | Nathaniel Ybarra MD - 11/08/2015 12:57 PM PDT Date of Service: 11/08/2015 Attending | | Surgeon: Nathaniel Ybarra MD Account Classification Clerk(s): Ronald Alarcon MD, PhD | | Preoperative [...] placed in a Kang horseshoe head of commission department. Her | | cranial incision was planned 3 fingerbreadths above the inion and 3 fingerbreadths over | | to the right of midline. The cranial incision was semilunar in shape. Her abdominal | | incision was prepared 3 fingerbreadths below the rib cage. These incisions were shaved. | | [employer] navigation was used for stereotaxy. Her cranium was registered with the | | Cat Amania system. The operative area was then prepped [...] catheter was passed with the assistance of SteCytoPherx. We | | intended to pass the [...] tolerated the procedure without | | apparent complication.TERRI SilvaT/MODLDD: 11/08/2015 11:49:29DT: 11/08/2015 | | 12:57:35Job #: [id number]: Nolvia Delgado MD | + + PROCEDURE [...] Placement | | | of R occipital VIOLIN MECHANIC shunt 2. Programming of strata valve to [...] | + + + + + | [facility] | [address] | [place] [address] | | | SERVICES, CORE | PARK [...] | + + + + + | [facility] | [address] [facility] | [place] [address] | | | SERVICES, CORE | HAYDEE [...] | | | | | | KAT 11/07/2015 12:42 | | | | | | PM Pending final | | | | | | approval / MARK LO | | | | | | 11/07/2015 8:43 AM | | | | | | Preliminary / MARK | Zeferino | | | | TERESITA 11/07/2015 8:27 AM | | | | | | | | | | + + + + + + + + | Specimen | + + | | + + + +---------+ + + | Performing | Address | City/State/Zipcode | Phone Number | | Organization | | | | + +---------+ + + | [facility] DEPARTMENT OF | | | | [...] | + + + + + | [facility] | [address] | [place] [address] | | | SERVICES, CORE | HAYDEE [...] | | | LABORATORY | | | [place] | | | SERVICES, | | | [...] | + + + + + | [facility] | [address] | [place] [address] | | | SERVICES, CORE | HAYDEE [...] | | + +---------+ + + | [facility] DEPARTMENT OF | | | | [...] | + + + + + | [facility] | [address] | [place] [address] | | | JUANA, RYNE | HAYDEE [...] | + + + + + | [facility] | [address] | [place] [address] | | | SERVICES, RYNE | HAYDEE [...] | + + + + + | [facility] | [address] | [place] [address] | | | SERVICES, CORE | HAYDEE [...] + + | [facility] | [address] | [place] [address] | | | SERVICES, CORE | PARK [...] | + + + + + | [facility] | [address] | [place] [address] | | | SERVICES, | [address] [...] [facility] | [address] | [place] [address] | | | SERVICES, | [address] [...] | + + + + + | [facility] | [address] | [place] [address] | | | SERVICES, | [address] [...] | + + + + + | [facility] | [address] [facility] | [place] [address] | | | SERVICES, CORE | PARK [...] [facility] | [address] | [place] [address] | | | SERVICES, CORE | PARK [...] | | | LABORATORY | | | [place] | | | SERVICES, | | | [...] Information: <60 mL/min/1.73 sq m | JUANA, RYNE | | Chronic Kidney Disease <15 mL/min/1.73 [...] | + + + + + | [facility] | [address] | [place] [address] | | | RYNE ARIAS | [address] | | | + + + + + documented in this encounter Visit Diagnoses + + | Diagnosis | + + | Hydrocephalus (HCC) - Primary Obstructive hydrocephalus | + + documented in this encounter Administered Medications + +--------+ +--------+------+------+ | Medication Order | MAR | Action | Dose | Rate | Site | | | Action | Date | | | | + +--------+ +--------+------+------+ | acetaminophen (TYLENOL) tablet | Given | 11/09/19 | 650 mg | | | | 325-650 mg 325-650 mg, oral, | | 16 6:15 | | | | | EVERY 6 HOURS NEEDED, Starting | | AM PDT | | | | | 8/22/16 at 2200, Until Meera | | | | | | | 11/09/15 at 1704, multimodal pain | | | | | | | control, fever greater than 38.5 | | | | | | | degrees C | | | | | | + +--------+ +--------+------+------+ +-------+ +--------+---+---+ | Given | 11/08/19 | 650 mg | | | | | 16 10:54 | | | | | | PM PDT | | | | +-------+ +--------+---+---+ | Given | 11/08/19 | 650 mg | | | | | 16 4:00 | | | | | | PM PDT | | | | +-------+ +--------+---+---+ +---+---+ | | | +---+---+ + +-------+ +--------+---+---+ | lamoTRIgine (LAMICTAL) tablet | Given | 11/09/19 | 100 mg | | | | 100 mg 100 mg, oral, TWICE | | 16 10:01 | | | | | DAILY, First dose on 11/06/15 | | AM PDT | | | | | at 2215, Until Discontinued | | | | | | + +-------+ +--------+---+---+ +-------+ +--------+---+---+ | Given | 11/08/19 | 100 mg | | | | | 16 9:52 | | | | | | PM PDT | | | | +-------+ +--------+---+---+ | Given | 11/08/19 | 100 mg | | | | | 16 8:19 | | | | | | AM PDT | | | | +-------+ +--------+---+---+ +---+---+ | | | +---+---+ + +---------+ +---+ +---+ | NaCl 0.9%-KCl 20 mEq/L IV | New Bag | 11/07/19 | | 50 mL/hr | | | infusion intravenous, | | 16 11:48 | | | | | CONTINUOUS, Starting 11/08/15 | | PM PDT | | | | | at 0015, Until [facility] 11/09/15 at | | | | | | | 0727, at 50 mL/hr | | | | | | + +---------+ +---+ +---+ +---+---+ | | | +---+---+ + +---------+ +------+---+---+ | ondansetron (ZOFRAN) injection | New Bag | 11/09/19 | 4 mg | | | | 4 mg 4 mg, intravenous, EVERY 12 | | 16 8:54 | | | | | HOURS NEEDED, Starting Tue | | AM PDT | | | | | 11/07/15 at 2245, Until Meera | | | | | | | 11/09/15 at 1704, nausea/vomiting, | | | | | | | 1st line | | | | | | + +---------+ +------+---+---+ +---+---+ | | | +---+---+ + +-------+ + +---+---+ | senna-docusate (SENOKOT S) | Given | 11/09/19 | 1 tablet | | | | 8.6-50 mg 1 tablet 1 tablet, | | 16 10:01 | | | | | oral, TWICE DAILY, First dose on | | AM PDT | | | | | 11/07/15 at 0900, Until | | | | | | | Discontinued | | | | | | + +-------+ + +---+---+ +-------+ + +---+---+ | Given | 11/08/19 | 1 tablet | | | | | 16 9:52 | | | | | | PM PDT | | | | +-------+ + +---+---+ | Given | 11/07/19 | 1 tablet | | | | | 16 8:16 | | | | | | AM PDT | | | | +-------+ + +---+---+ +---+---+ | | | +---+---+ + +-------+ + +---+---+ | trimethoprim-sulfamethoxazole | Given | 11/08/19 | 1 tablet | | | | (BACTRIM DS,SEPTRA DS) 160-800 mg | | 16 8:19 | | | | | tablet 1 tablet 1 tablet, oral, | | AM PDT | | | | | TWICE DAILY, 6 doses, First dose | | | | | | | on Fri11/07/15 at 1315, Last | | | | | | | dose on Fri11/09/15 at 2100 | | | | | | + +-------+ + +---+---+ +-------+ + +---+---+ | Given | 11/07/19 | 1 tablet | | | | | 16 11:34 | | | | | | PM PDT | | | | +-------+ + +---+---+ | Given | 11/07/19 | 1 tablet | | | | | 16 1:46 | | | | | | PM PDT | | | | +-------+ + +---+---+ +---+---+ | | | +---+---+ documented in this encounter
--- OUTSIDE RECORDS SUMMARY | ~2019-10-25 | XMS | Encounter Summary ---
Demographics + + + | Address | [address] | | | [place] [address] | + + + | Home Phone [...] [place] | | | | | [address] | | + + + + + | Scott Mcgarry ECON | Unknown | | + + + + + Care Team Providers + +------+ + | Care Rail Car Painter/Sandblaster Name | Role | Phone | + [...] | | | | Acute on | [place], [place] | Health and | | | | | chronic | [address] | Healing, | | | | | intracranial | Phone: | [address], | | | | | subdural | [phone] | 3rd Floor | | | | | hematoma | Fax: | [place], [place] | | | | | (HCC) | [phone] | [address] | | | | | Procedures | | Phone: | | | | | CT HEAD WO | | [phone] | | | | | CONTRAST [place] | | Fax: | | | | | CT | | [phone] | | | | | SCAN,HEAD/BR | | | | | | | AIN,W/O | | | | | | | CONTRAST | | | | | | | MATL | | | +--------+--------+ + + + + Consultation (Routine) +--------+--------+ + + + + | Status | Reason | Specialty | Diagnoses / | Referred By | Referred To | | | | | Procedures | Contact | Contact | +--------+--------+ + + + + | Closed | | | Diagnoses | Bernardo, | | | | | | | Kristen Duran, | | | | | | Hydrocephalu | PA [address] | | | | | | s (HCC) | [address] | | | | | | Acute on | [place], [place] | | | | | | chronic | [address] | | | | | | intracranial | Phone: | | | | | | subdural | [phone] | | | | | | hematoma | Fax: | | | | | | (HCC) | [phone] | | | | | | Seizure | | | | | | | disorder | | | | | | | (HCC) | | | | | | | Procedures | | | | | | | CONSULT TO | | | | | | | NEUROLOGY | | | +--------+--------+ + + + + Reason for Visit + + + | Reason | Comments | + + + | Follow-up visit | Pt c/o tremors on right side and dark circles under eyes. R ankle | | | is becoming inverted | + + + Encounter Details +--------+---------+ + + + | Date | Type | Department | Care Team | Description | +--------+---------+ + + + | 10/31/ | Office | Neurosurgery at | Chang, | Hydrocephalus | | 2017 | Visit | [facility] | REENA Hunter | (Primary Dx); Acute | | | | Ave [facility] for | [address] | on chronic | | | | Health and Healing, | [facility] [place] | intracranial | | | | | [address] | subdural hematoma | | | | floor [place], [place] | [phone] | ([facility]); Seizure | | | | [address] | | disorder (HCC) | | | | [phone] | | | +--------+---------+ + + + [...] + + + | Blood Pressure | 118/80 | 10/31/2016 2:14 PM | | | | | PDT | | + + + + + | Pulse | 65 | 10/31/2016 2:14 PM | | | | | PDT | | + + + + + | Temperature | 36.1 C (97 F) | 10/31/2016 2:14 PM | | | | | PDT [...] + + + + | Weight | 90.7 kg (200 lb) | 10/31/2016 2:14 PM | | | | | PDT | | + + + + + | Height | - | - | | + + + + + | Body Mass Index | 31.32 | 09/20/2016 2:44 PM | | | | | PDT | | + + + + + documented in this encounter Progress Notes Kristen Chang PA - 10/31/2016 1:45 PM PDTFormatting of this note might be differe nt from the original. S: Ms. Caass is here for a scheduled post op visit. 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 Imaging demonstrated low-dens ity subdural fluid collections. Patient was admitted for Bburr hole drainage of subdural h ematomas on 09/20/16possibly related to over-shunting. She was subsequently discharged home with family on 09/24/16. The patient is here for a scheduled follow up visit with repeat Head CT prior. She was last seen in Neurosurgery clinic on 10/10/16 with Repeat imaging that was stable, but not improved from prior. She had continues with R sided weakness and gait dysfun ction. The patient and her family report her function remains impaired and ambulating is dif ficult. They would like to start aquatic therapy. The are also concerned about patient lorne santos periodic staring spells occasionally accompanied by shaking movements in her RUE. The jess ent also can be drowsy for several hours post events. The patient's mother reports they do n ot have a current Neurologist. BP 118/80 | Pulse 65 | Temp (Src) 36.1 C (97 F) (Forehead) | Wt 90.7 kg (200 lb) | BMI 31.32 kg/(m^2) O: Gen: 46 y/o Female in W/C NAD Incisions: scalp- well healed Neuro: Alert and oriented x 3, PERRL, EOMI, face symmetric, tongue midline Motor RUE/LE 4/5 except DF 3/5, Eversion 2/5, PF 3/5 LUE/LE 5/[address] HEAD WO CONTRAST Performed: 10/31/2016 12:23 PM Status: Final result Dx: Acute on chronic intracranial s ubdura... Details Reading Physician Reading Date Result Priority Ron Ramesh MD 10/31/2016 Narrative EXAM: CT head without contrast HISTORY: Status post aime hole drainage of subdural hemorrhage, follow up. COMPARISON: 10/10/2016 and multiple prior examinations. TECHNIQUE: CT of the head without contrast. FINDINGS: Brain: Slight interval decreased left frontal extra-axial fluid collection now measuring ap proximately 2 cm in maximum depth changed from 2.9 cm previously. Otherwise, the remainder o f the extra-axial mixed density fluid collections do not appear changed. This results in les s subjacent mass effect upon the brain parenchyma. The left frontal horn appears mildly incr eased in dilation, however, this is felt to to decreased mass effect or ventriculomegaly. Ri ght occipital approach ventricular peritoneal shunt remains positioned within the left later al ventricle as before. Size of the ventricular system is not significantly changed to tamela or imaging. Postsurgical changes of bilateral aime holes with evacuation of subdural fluid is again noted. . . Soft tissues: Postsurgical changes. Skull and skull base: No fractures . Mastoids and middle ears are unremarkable. Face/orbits: Visualized portions are unremarkable. Paranasal sinuses: Visualized portions are unremarkable. IMPRESSION: Slight interval decreased size of a left frontal extra-axial fluid collection up to 2 cm in maximum depth. No evidence of midline shift or progressive ventriculomegaly. Unchanged sequ lilia of prior shunt catheter placement. I have personally reviewed the images and, if necessary, edited the report A: 46 y/o Female with h/o PMH of toxoplasmosis, viral meningitis, aqueductal stenosis and s hunted HCP (R occipital VPS, strata 2.5) who presented with increasing spasticity in clinic. Imaging demonstrated low-density subdural fluid collections. Pt. S/p Bburr hole drainage of subdural hematomas on 09/20/16possibly related to over-shunting. Repeat imaging again stalin ws improvement but not full resolution. P: Reviewed imaging with Dr. Delgado who recommends patient FU in 6 weeks with repeat Head C T prior. Refer to Neurologist to evaluate for possible seizure activity that is not controll ed with her VNS and AED- issued patient's mother external referral and asked her to discuss with PCP and check with insurance to find local provider. Asked her to call me if any issues with this. Advised patient/family to contact our clinic should they have any problems or co ncerns prior to the next appointment. Recommend they present to local ED if any worsening sy mptoms, AMS with events. They verbalized understanding and agreed with this plan. Kristen Chang PA-C [facility] [address] Mailcode: [id number] [phone] documented in t his encounter Plan of Treatment +--------+---------+ + + + | Date | Type | Specialty | Care Team | Description | +--------+---------+ + + + | 11/24/ | Office | Neurological Surgery | Nolvia Delgado, | | | 2019 | Visit | | [address] | | | | | | [place], [place] | | | | | | [address] | | | | | | [phone] | | | | | | | | +--------+---------+ + + + documented as of this encounter Results CT HEAD WO CONTRAST (12/26/2016 2:19 PM PDT) + + | Specimen | + + | | + + + + + | Narrative | Performed At | + + + | EXAM: CT head without contrast HISTORY: History of subdural | [facility] | | hematomas, status post drainage. Followup CT of COMPARISON: CT | RADIOLOGY VOICE | | head without contrast 10/31/2016 TECHNIQUE: CT of the head without | RECOGNITION | | contrast. FINDINGS: Brain: Significant ventriculomegaly is | | | redemonstrated. There is increased size of the left frontal horn, | | | though this is likely secondary to decreased mass effect from the | | | decreased left frontal extra-axial fluid collection. The ventricular | | | system is otherwise stable in size. A right occipital approach | | | ventriculoperitoneal shunt is redemonstrated with tip terminating in | | | the left lateral ventricle. No evidence for acute infarct or | | | hemorrhage. Left extra-axial fluid collection has decreased in size | | | compared to prior now measuring approximately 12 mm compared to 20 mm | | | previously. Right occipital extra-axial fluid collection has also | | | decreased in size, now measuring 27.7 mm compared to 34.6 mm | | | previously. There are scattered hyperdensities in the subdural space, | | | this is likely safety representative of small clots. Soft tissues: | | | Unremarkable Skull and skull base: Stable postsurgical bilateral aime | | | hole placement for subdural fluid drainage. Face/orbits: Visualized | | | portions are unremarkable. Paranasal sinuses: Visualized portions are | | | unremarkable. IMPRESSION: 1. Mild increase in left frontal | | | horn size likely secondary to decreased size of left frontal subdural | | | hematoma; ventricular size is otherwise stable. Right occipital | | | subdural collection has also decreased in size. 2. No acute | | | intracranial abnormalities. I have personally reviewed the | | | images and, if necessary, edited the report. I agree with the report | | | as now presented. | | + + + + + | Procedure Note | + + | Service Account, [facility] Res In Interface - 12/26/2016 5:10 PM PDT EXAM: CT head | | without contrastHISTORY: History of subdural hematomas, status post drainage. Followup | | CT ofCOMPARISON: CT head without contrast 10/31/2016TECHNIQUE: CT of the head without | | contrast.FINDINGS:Brain: Significant ventriculomegaly is redemonstrated. There is | | increased size of the left frontal horn, though this is likely secondary to decreased | | mass effect from the decreased left frontal extra-axial fluid collection. The | | ventricular system is otherwise stable in size. A right occipital approach | | ventriculoperitoneal shunt is redemonstrated with tip terminating in the left lateral | | ventricle. No evidence for acute infarct or hemorrhage. Left extra-axial fluid | | collection has decreased in size compared to prior now measuring approximately 12 mm | | compared to 20 mm previously. Right occipital extra-axial fluid collection has also | | decreased in size, now measuring 27.7 mm compared to 34.6 mm previously. There are | | scattered hyperdensities in the subdural space, this is likely safety representative of small | | clots.Soft tissues: UnremarkableSkull and skull base: Stable postsurgical bilateral aime | | hole placement for subdural fluid drainage.Face/orbits: Visualized portions are | | unremarkable.Paranasal sinuses: Visualized portions are unremarkable.IMPRESSION:1. Mild | | increase in left frontal horn size likely secondary to decreased size of left frontal | | subdural hematoma; ventricular size is otherwise stable. Right occipital subdural | | collection has also decreased in size.2. No acute intracranial abnormalities. I have | | personally reviewed the images and, if necessary, edited the report. I agree with the | | report as now presented. | | | |1. Mild increase in left frontal horn size likely secondary to decreased size of left front al subdural hematoma; ventricular size is otherwise stable. Right occipital subdural collect ion has also decreased in size. | |2. No acute intracranial abnormalities. | | | | | |I have [...] subdural hematoma (HCC) | + + | Seizure disorder (HCC) Unspecified epilepsy without mention of intractable epilepsy | + + documented in this encounter"
--- OUTSIDE RECORDS SUMMARY | ~2019-10-25 | XMS | Encounter Summary ---
Demographics + + + | Address | [address] | | | [place] [address] | + + + | Home Phone | | + + + | Preferred Language | Unknown | + + + | Marital Status | Single | + + + | Sikh Affiliation | NRP | + + + | Race | White | + + + | Ethnic Group | Not or | + + + Author + + + | Author | [facility] | + + + | Organization | [facility] | + + + | Address | Unknown | + + + | Phone | Unavailable | + + + Support + + + + + | Name | Relationship | Address | Phone | + + + + + | Malina Nicole | ECON | [address] | | | | | [place] | | | | | [address] | | + + + + + | Scott Mcgarry ECON | Unknown | | + + + + + Care Team Providers + +------+ + | Care Lining Machine Operator Name | Role | Phone | + +------+ + | Patricia Stevens | PCP | | + +------+ + Encounter Details +--------+ + + + + | Date | Type | Department | Care Team | Description | +--------+ + + + + | 07/02/ | Document-Sc | Health Information | Unknown . | | | 2016 | anned | Services [id number] | | | | | | [address] Sen[address] | | | | | | Mailcode: [id number] | | | | | | [facility] | | | | | | [place], [place] | | | | | | [address] | | | | | | [phone] | | | +--------+ + + + [...] | | 2019 | Visit | | [address] | | | | | | [place], [place] | | | | | | [address] | | | | | | [phone] | | | | | | | | +--------+---------+ + + + documented as of this encounter Visit Diagnoses Not on filedocumented in this encounter"
--- OUTSIDE RECORDS SUMMARY | ~2019-10-25 | XMS | Encounter Summary ---
Demographics + + + | Address | [address] | | | [place] [address] | + + + | Home Phone | | + + + | Preferred Language | Unknown | + + + | Marital Status | Single | + + + | Hindu Affiliation | NRP | + + + | Race | White | + + + | Ethnic Group | Not or | + + + Author + + + | Author | [facility] | + + + | Organization | [facility] | + + + | Address | Unknown | + + + | Phone | Unavailable | + + + Support + + + + + | Name | Relationship | Address | Phone | + + + + + | Malina Nicole | ECON | [address] | | | | | [place] | | | | | [address] | | + + + + + | Scott Nicole | ECON | Unknown | | + + + + + Care Team Providers + +------+ + | Care Bow Rehairer Name | Role | Phone | + +------+ + | Gabe Baird DO | PCP | | + +------+ + Encounter Details +--------+ + + + + | Date | Type | Department | Care Team | Description | +--------+ + + + + | 08/29/ | Pharmacy | Outpatient Retail | | | | 2019 | Visit | [facility] | | | | | | [address] | | | | | | [address] [place], [place] | | | | | | [address] | | | | | | [phone] | | | +--------+ + + + [...] [address] | | | | | | [place], [place] | | | | | | [address] | | | | | | [phone] | | | | | | | | +--------+---------+ + + + documented as of this encounter Visit Diagnoses Not on filedocumented in this encounter"
--- OUTSIDE RECORDS SUMMARY | ~2019-10-25 | XMS | Encounter Summary ---
Demographics + + + | Address | [address] | | | [place] [address] | + + + | Home Phone | | + + + | Preferred Language | Unknown | + + + | Marital Status | Single | + + + | Anglican Affiliation | NRP | + + + | Race | White | + + + | Ethnic Group | Not or | + + + Author + + + | Author | [facility] | + + + | Organization | [facility] | + + + | Address | Unknown | + + + | Phone | Unavailable | + + + Support + + + + + | Name | Relationship | Address | Phone | + + + + + | Malina Nicole | ECON | [address] | | | | | [place] | | | | | [address] | | + + + + + | Scott Nicole | ECON | Unknown | | + + + + + Care Team Providers + +------+ + | Care Stamping Press Operator Name | Role | Phone | + +------+ + | Gabe Baird DO | PCP | | + +------+ + Encounter Details +--------+ + + + + | Date | Type | Department | Care Team | Description | +--------+ + + + + | 04/25/ | Documentati | Neurosurgery at | Nolvia Delgado, | | | 2018 | on | [facility] [address] | MD [address] | | | | | Ave [facility] | [place], [place] | | | | | Health and Healing, | [address] | | | | | Building | [phone] | | | | | floor [place], [place] | | | | | | [address] | | | | | | [phone] | | | +--------+ + + + [...] | | 2019 | Visit | | [address] | | | | | | [place], [place] | | | | | | [address] | | | | | | [phone] | | | | | | | | +--------+---------+ + + + documented as of this encounter Visit Diagnoses Not on filedocumented in this encounter"
--- OUTSIDE RECORDS SUMMARY | ~2019-10-25 | XMS | Encounter Summary ---
Demographics + + + | Address | [address] | | | [place] [address] | + + + | Home Phone | | + + + | Preferred Language | Unknown | + + + | Marital Status | Single | + + + | Latter-Day Affiliation | NRP | + + + | Race | White | + + + | Ethnic Group | Not or | + + + Author + + + | Author | [facility] | + + + | Organization | [facility] | + + + | Address | Unknown | + + + | Phone | Unavailable | + + + Support + + + + + | Name | Relationship | Address | Phone | + + + + + | Malina Nicole | ECON | [address] | | | | | [place] | | | | | [address] | | + + + + + | Scott Nicole | ECON | Unknown | | + + + + + Care Team Providers + +------+ + | Care Cloth Printing Inspector Name | Role | Phone | + [...] Description | +--------+---------+ + + + | 04/23/ | Surgery | [address] | Nolvia Delgado, | RIGHT | | 2020 | | [address] | [address] | [address] | | | | Rd [facility] Main | [place], [place] | [address] | | | | Hospital Admitting | [address] | REVISION, | | | | Desk Located on the | [phone] | | | | | 9th floor | | | | | | [place], [place] | | | | | | [address] | | | +--------+---------+ + + + [...] appetite Please call the neurosurgery clinic at [phone] if you have one or more of [...] prefer, though healthy food choices are recommended. Discharge Instr - Procedures Hema Ruiz MD [...] in the morning had been told to [facility] by [facility] and could not be called [...] road. Pt left with mom in van. 20 7:05 PM PSTdocumented in this encounter Plan of Treatment +--------+---------+ + + + | Date | Type | Specialty | Care Team | Description | +--------+---------+ + + + | 11/24/ | Office | Neurological Surgery | Nolvia Delgado, | | | 2019 | Visit | | [address] | | | | | | [place], [place] | | | | | | [address] | | | | | | [phone] | | | | | | | [...] [facility] | [address] | [place] [address] | | | SERVICES, CORE | [address] [...] LABORATORY | [address] | [place] [address] | | | SERVICES, | [address] [...] MIRIAM SIDDIQI | [address] | [place] [address] | | | SERVICES, | [address] [...] | + + + + + | [facility] | [address] | [place] [address] | | | RYNE ARIAS | HAYDEE [...] | | | LABORATORY | | | [place] | | | SERVICES, | | | [...] | 15 | 8 - 25 | [facility] | | | INE RATIO | | [...] | + + + + + | [facility] | [address] | [place] [address] | | | SERVICES, CORE | HAYDEE [...] + + + + | [facility] | [address] | [place], [place] | | | [facility] | [address] | [address] | | | TESTS | | | [...] + | Diagnosis | + + | External hydrocephalus (HCC) Obstructive hydrocephalus | + + documented in this encounter Administered Medications + +--------+ + +------+ + | Medication Order | MAR | Action | Dose | Rate | Site | | | Action | Date | | | | + +--------+ + +------+ + | bacitracin 50,000 Units, | Given | 04/23/19 | 1,010 mL | | Surgical | | ringers (TIS-U-JERSON) 1,000 mL | | 20 12:04 | | | Site | | INTRAPROCEDURE PRN, Starting Fri | | PM PST | | | | | 04/23/19 at 1204, Until 04/23/19 | | | | | | | at 1407 | | | | | | + +--------+ + +------+ + +---+---+ | | | +---+---+ + +-------+ +---------+---+ + | bacitracin ointment | Given | 04/23/19 | 1 strip | | Surgical | | INTRAPROCEDURE PRN, Starting Fri | | 20 2:13 | | | Site | | 04/23/19 at 1413, Until 04/23/19 | | PM PST | | | | | at 1414 | | | | | | + +-------+ +---------+---+ + +---+---+ | | | +---+---+ + +-------+ +------+---+---+ | bupivacaine-EPINEPHrine | Given | 04/23/19 | 6 mL | | | | (MARCAINE-EPINEPHRINE) 0.5 | | 20 1:11 | | | | | %-1:200,000 injection | | PM PST | | | | | INTRAPROCEDURE PRN, Starting Fri | | | | | | | 04/23/19 at 1311, Until 04/23/19 | | | | | | | at 1407 | | | | | | + +-------+ +------+---+---+ + +---+ | | | + +---+ | fentaNYL (SUBLIMAZE) injection | [...] +---+---+ | | | +---+---+ + +-------+ +--------+---+ + | thrombin 5000 unit topical | Given | 04/23/19 | 5,000 | | Surgical | | solution INTRAPROCEDURE PRN, | | 20 12:03 | Units | | Site | | Starting 04/23/19 at 1203, | | PM PST | | | | | Until 04/23/19 at 1407 | | | | | | + +-------+ +--------+---+ + +---+---+ | | | +---+---+ documented in this encounter
--- OUTSIDE RECORDS SUMMARY | ~2019-10-25 | XMS | Encounter Summary ---
Demographics + + + | Address | [address] | | | [place] [address] | + + + | Home Phone | | + + + | Preferred Language | Unknown | + + + | Marital Status | Single | + + + | Pentecostalism Affiliation | NRP | + + + [...] [place] | | | | | [address] | | + + + + + | Scott Nicole | ECON | Unknown | | + + + + + Care Team Providers + +------+ + | Care Contract Administration Specialist Name | Role | Phone | + +------+ + | Gabe Baird DO | PCP | | + +------+ + Reason for Referral Diagnostic Testing (Urgent) + +--------+ + + + + | Status | Reason | Specialty | Diagnoses / | Referred By | Referred To | | | | | Procedures | Contact | Contact | + +--------+ + + + + | Authorized | | Radiology | Diagnoses | Raslan, | External | | | | | | Nolvia Liang MD | Order | | | | | Hydrocephalu | [address] | | | | | | s, | Ave | | | | | | unspecified | [place], [place] | | | | | | type (HCC) | [address] | | | | | | Shunt | Phone: | | | | | | malfunction, | [phone] | | | | | | subsequent | Fax: | | | | | | encounter | [phone] | | | | | | Procedures | | | | | | | CT HEAD WO | | | | | | | CONTRAST | | | + +--------+ + + + + Diagnostic Testing (Urgent) + +--------+ + + + + | Status | Reason | Specialty | Diagnoses / | Referred By | Referred To | | | | | Procedures | Contact | Contact | + +--------+ + + + + | New Request | | Radiology | Diagnoses | Mk, | [place] | | | | | Shunt | [place], | Health & | | | | | malfunction, | [place] [address] | [employer] | | | | | subsequent | [place] | [address] | | | | | encounter | [address] | [address] | | | | | Hydrocephalu | [place], [place] | ROAD | | | | | s, | [address] | [place], [place] | | | | | unspecified | Phone: | [address] | | | | | type (HCC) | [phone] | Phone: | | | | | Procedures | Fax: | [phone] | | | | | CT HEAD WO | [phone] | | | | | | CONTRAST | | | + +--------+ + + + + Reason for Visit + + + | Reason | Comments | + + + | Care Coordination | | + + + Encounter Details +--------+ + + + + | Date | Type | Department | Care Team | Description | +--------+ + + + + | 10/11/ | Telephone | Neurosurgery at | MickyNolvia benavides, | Care Coordination | | 2020 | | [facility] [address] | MD [address] | | | | | Ave [facility] | [place], [place] | | | | | Health and Healing, | [address] | | | | | Building 1, 8th | [phone] | | | | | floor [place], [place] | | | | | | [address] | | | | | | [phone] | | | +--------+ + + + [...] recent travel history available. | + + + + + + | COVID-19 Exposure | Response | Date Recorded | + + + + | In the last month, have you been in contact | No / Unsure | 10/14/2019 9:14 AM | | with someone who was confirmed or | | PDT | | suspected to have Coronavirus / COVID-19? | | | + + + + [...] | | 2020 | Visit | | [address] | | | | | | [place], [place] | | | | | | [address] | | | | | | [phone] | | | | | | | | +--------+---------+ + + + + +---------+--------+ + + | Name | Type | Priori | Associated Diagnoses | Order Schedule | | | | ty | | | + +---------+--------+ + + | CT HEAD WO CONTRAST | Imaging | Urgent | Hydrocephalus, | Expected: | | | | | unspecified type | 10/12/2019, Expires: | | | | | (HCC) Shunt | 11/11/2020 | | | | | malfunction, | | | | | | subsequent encounter | | | | | | | | + +---------+--------+ + + documented as of this encounter Results CT HEAD WO CONTRAST (10/14/2019 9:41 AM PDT) + + | Specimen | + + | | + + + + + | Narrative | Performed At | + + + | EXAM: CT HEAD WITHOUT CONTRAST HISTORY: concern for shunt | [facility] | | failure 49-year-old female with past medical history cerebral palsy, | RADIOLOGY VOICE | | seizure disorder status post vagal nerve stimulation, and | RECOGNITION 2 | | hydrocephalus status post right ventriculoperitoneal shunt, shunt | | | valve revision on 04/23/2019 22 malfunctioning VPS valve. Now with | | | cognitive decline concerning for shunt failure. COMPARISON: Head | | | CT from 12/31/2018, 08/28/2017. TECHNIQUE: CT of the head without | | | intravenous contrast. FINDINGS: BRAIN: Redemonstration of | | | right parieto-occipital approach [employer] shunt, unchanged in position. | | | Redemonstration of isodense fluid collections along the left frontal | | | convexity measuring up to 2.5 mm in thickness while previously 6 mm, | | | left parietal convexity measuring up to 10 mm in thickness while | | | previously 13 mm, and left paramedian parietal convexity measuring up | | | to 3 mm while previously 6 mm. No significant difference in size and | | | appearance of severe bilateral lateral and third ventriculomegaly | | | compared to prior CT. Similar appearance of the brain with prominent | | | bilateral parietal occipital white matter volume loss. No herniation. | | | No mass, or territorial infarction. SOFT TISSUES: Unremarkable. | | | SKULL AND SKULL BASE: Stable left frontal, biparietal aime holes. No | | | acute fracture. Mastoids and middle ears are unremarkable. | | | FACE/ORBITS: Visualized portions are unremarkable. PARANASAL SINUSES: | | | Slight rightward nasal septal deviation. Left maxillary sinus | | | air-fluid level has resolved as prior CT. IMPRESSION: | | | Redemonstration of severe bilateral lateral and third | | | ventriculomegaly, without significant change in size and appearance of | | | the ventricles. Decreased size of left frontal and left greater | | | than right parietal extra-axial collections compared to prior CT from | | | 2019. I have personally reviewed the images and, if necessary, | | | edited the report. I agree with the report as now presented. | | | Final signature: Nikki Deutsch MD 10/14/2019 11:34 AM | | | Preliminary: Franklyn Marcelo MD Dictation initiated: Franklyn | | | MD Davian 10/14/2019 9:35 AM | | + + + + + | Procedure Note | + + | Service Account, Radiant Res In Interface - 10/14/2019 11:35 AM PDT EXAM: CT HEAD | | WITHOUT CONTRAST HISTORY: concern for shunt [id number] female with past medical | | history cerebral palsy, seizure disorder status post vagal nerve stimulation, and | | hydrocephalus status post right ventriculoperitoneal shunt, shunt valve revision on | | 04/23/2019 22 malfunctioning VPS valve. Now with cognitive decline concerning for shunt | | failure. COMPARISON: Head CT from 12/31/2018, 08/28/2017. TECHNIQUE: CT of the head | | without intravenous contrast. FINDINGS: BRAIN: Redemonstration of right | | parieto-occipital approach [employer] shunt, unchanged in position. Redemonstration of isodense | | fluid collections along the left frontal convexity measuring up to 2.5 mm in thickness | | while previously 6 mm, left parietal convexity measuring up to 10 mm in thickness while | | previously 13 mm, and left paramedian parietal convexity measuring up to 3 mm while | | previously 6 mm. No significant difference in size and appearance of severe bilateral | | lateral and third ventriculomegaly compared to prior CT. Similar appearance of the brain | | with prominent bilateral parietal occipital white matter volume loss. No herniation. No | | mass, or territorial infarction. SOFT TISSUES: Unremarkable.SKULL AND SKULL BASE: | | Stable left frontal, biparietal aime holes. No acute fracture. Mastoids and middle ears | | are unremarkable.FACE/ORBITS: Visualized portions are unremarkable.PARANASAL SINUSES: | | Slight rightward nasal septal deviation. Left maxillary sinus air-fluid level has | | resolved as prior CT. IMPRESSION: Redemonstration of severe bilateral lateral and third | | ventriculomegaly, without significant change in size and appearance of the ventricles. | | Decreased size of left frontal and left greater than right parietal extra-axial | | collections compared to prior CT from 2019. I have personally reviewed the images and, | | if necessary, edited the report. I agree with the report as now presented. Final | | signature: Nikki Deutsch MD 10/14/2019 11:34 AM Preliminary: Franklyn Marcelo MD | | Dictation initiated: Franklyn Marcelo MD 10/14/2019 9:35 AM | |Decreased size of left frontal and left greater than right parietal extra-axial collections compared to prior CT from 2019. | | | |I have personally reviewed the images and, if necessary, edited the report. I agree with jossie hassan report as now presented. | | | |Final signature: Nikki Deutsch MD 10/14/2019 11:34 AM | |Preliminary: Franklyn Marcelo MD | |Dictation initiated: Franklyn Marcelo MD 10/14/2019 9:35 AM | + + + +---------+ + + [...] type (HCC) - Primary | + + | Shunt malfunction, subsequent encounter | + + documented in this encounter"
--- OUTSIDE RECORDS SUMMARY | ~2019-10-25 | XMS | Encounter Summary ---
Demographics + + + | Address | [address] | | | [place] [address] | + + + | Home Phone | | + + + | Preferred Language | Unknown | + + + | Marital Status | Single | + + + | Faith Affiliation | NRP | + + + | Race | White | + + + | Ethnic Group | Not or | + + + Author + + + | Author | [facility] | + + + | Organization | [facility] | + + + | Address | Unknown | + + + | Phone | Unavailable | + + + Support + + + + + | Name | Relationship | Address | Phone | + + + + + | Malina Nicole | ECON | [address] | | | | | [place] | | | | | [address] | | + + + + + | Scott Mcgarry ECON | Unknown | | + + + + + Care Team Providers + +------+ + | Care Poultry Hatchery Laborer Name | Role | Phone | + +------+ + | Patricia Stevens | PCP | | + +------+ + Reason for Visit +---------+ + | Reason | Comments | +---------+ + | Post Op | | +---------+ + Encounter Details +--------+ + + + + | Date | Type | Department | Care Team | Description | +--------+ + + + + | 08/25/ | Telephone | Neurosurgery at | Nolvia Delgado, | Post Op | | 2017 | | [facility] [address] | MD [address] | | | | | [address] [facility] | [place], [place] | | | | | Health and Healing, | [address] | | | | | [facility] | [phone] | | | | | floor [place], [place] | | | | | | [address] | | | | | | [phone] | | | +--------+ + + + [...] [address] | | | | | | [facility] [place] | | | | | | [address] | | | | | | [phone] | | | | | | | | +--------+---------+ + + + documented as of this encounter Visit Diagnoses Not on filedocumented in this encounter"
--- OUTSIDE RECORDS SUMMARY | ~2019-10-25 | XMS | Encounter Summary ---
Demographics + + + | Address | [address] | | | [place] [address] | + + + | Home Phone | | + + + | Preferred Language | Unknown | + + + | Marital Status | Single | + + + | Gnosticism Affiliation | NRP | + + + [...] [place] | | | | | [address] | | + + + + + | Scott Mcgarry ECON | Unknown | | + + + + + Care Team Providers + +------+ + | Care Doughnut Machine Operator Name | Role | Phone | + +------+ + | Patricia Stevens | PCP | | + +------+ + Encounter Details +--------+ + + + + | Date | Type | Department | Care Team | Description | +--------+ + + + + | 07/18/ | Canoe Inspector Final | Neurosurgery at | Jeannine Hebert | Hydrocephalus | | 2017 | | [facility] [address] | SIMÓN Mejia | (Primary Dx) | | | | [facility] | | | | | | Health and Healing, | | | | | | Building | | | | | | floor [place], [place] | | | | | | [address] | | | | | | [phone] | | | +--------+ + + + [...] | | 2019 | Visit | | [address] | | | | | | [place], [place] | | | | | | [address] | | | | | | [phone] | | | | | | | | +--------+---------+ + + + documented as of this encounter Visit Diagnoses + + | Diagnosis | + + | Hydrocephalus (HCC) - Primary Obstructive hydrocephalus | + + documented in this encounter"
--- OUTSIDE RECORDS SUMMARY | ~2019-10-25 | XMS | Encounter Summary ---
Demographics + + + | Address | [address] | | | [place] [address] | + + + | Home Phone [...] Author + + + | Author | [facility] | + + + | Organization | [facility] | + + + | Address | Unknown | + + + | Phone | Unavailable | + + + Support + + + + + | Name | Relationship | Address | Phone | + + + + + | Malina Nicole | ECON | [address] | | | | | [place] | | | | | [address] | | + + + + + | Scott Mcgarry ECON | Unknown | | + + + + + Care Team Providers + +------+ + | Care Safety Trainer Name | Role | Phone | + [...] | Closed | | | Diagnoses | Alarcon, | | | | | | | Lizbeth D, | | | | | | Hydrocephalu | PA-C [address] | | | | | | s (HCC) | [address] | | | | | | Acquired | [place], [place] | | | | | | equinovarus | [address] | | | | | | deformity of | Phone: | | | | | | right foot | [phone] | | | | | | Procedures | Fax: | | | | | | PHYSICAL | [phone] | | | | | | THERAPY | | | | | | | REFERRAL | | | +--------+--------+ + + + + Reason for Visit +---------+ + | Reason | Comments | +---------+ + | Post Op | | +---------+ + Encounter Details +--------+---------+ + + + | Date | Type | Department | Care Team | Description | +--------+---------+ + + + | 09/30/ | Office | Neurosurgery at | Lizbeth Alarcon, | Hydrocephalus | | 2014 | Visit | [facility] [address] | PA-C [address] | (Primary Dx); | | | | [facility] for | [address] [place], [place] | Acquired equinovarus | | | | Health and Healing, | [address] | deformity of right | | | | Building 1, 8th | [phone] | foot | | | | floor [facility] [place] | | | | | | [address] | | | | | | [phone] | | | +--------+---------+ + + + [...] + + + | Blood Pressure | 118/82 | 09/30/2013 10:39 AM | | | | | PDT | | + + + + + | Pulse | 82 | 09/30/2013 10:39 AM | | | | | PDT | | + + + + + | Temperature | 36.8 C (98.2 F) | 09/30/2013 10:39 AM | | | | | PDT [...] + + | Weight | 97.5 kg (215 lb) | 09/30/2013 10:39 AM | | | | | PDT | | + + + + + | Height | - | - | | + + + + + | Body Mass Index | 31.75 | 09/14/2013 1:00 PM | | | | | PDT | | + + + + + documented in this encounter Progress Notes Lizbeth Alarcon PA-C - 09/30/2013 11:39 AM PDTFormatting of this note might be different fr om the original. POST OP VISIT Subjective 43 y.o. female with history of post-infectious HCP, aqueductal stenosis, and CP who p resented with increased spasticity and weakness on the right. She presents today for regular ly scheduled follow up s/p a redo ETV 09/14/13. She denies increased RAHMAN, N/V, visual changes a nd fevers. She states her biggest concern is her right foot inversion due to chronic cerebra l palsy. States she already has three different doctors evaluating Objective: Vitals BP: 118/82, T: 36.8 C (98.2 F), T Src: Forehead, P: 82, Resp: , W: 97.523 kg (21 5 lb), H: , HC: BMI: 31.74 kg/m2, BSA: 2.18 m2, Pain Score: 0 - Zero General: NAD Neuro: Alert and oriented, EOMI, PERRL Incision: C/D/I, no erythema or edema, rowena in place Motor: MOTOR SCORE LEFT RIGHT C5 (Shoulder Abduct) 5 5 C6 (Elbow Flex) 5 5 C7 (Elbow Ext) 5 5 C8 (Wrist Ext) 5 5 T1 (Pinky Abd) 5 5 L2 (Hip Flex) 5 4 L3 (Knee Ext) 5 4 L4 (Dorsiflexion) 5 3 L5 (EHL) 5 3 S1 (Plantar Flex) 5 3 SILT in BLE and BUE Psy: appropriate and cooperative Assesment: 43 y.o. female with history of post-infectious HCP, aqueductal stenosis, and C P who presented with increased spasticity and weakness on the right. She presents today for regularly scheduled follow up s/p a redo ETV 09/14/13. Patient recovering well, but with RLE w eakness and baseline muscoloskeletal deficits. Plan: No lifting greater than 10 lbs, no strenuous bending or twisting x 6 weeks post op Do not soak incision x 6 weeks post op Wrote for PT to begin at six weeks post op Extensively counseled on urgent signs/symptoms, patient will seek immediate medical evaluat ion if they present Follow up with Dr. Delgado as needed LIZBETH ALARCON PA-C NEUROSURGERY AT [facility] [address] Mailcode: [place] [address] documented in this e ncounter Plan of Treatment +--------+---------+ + + + | Date | Type | Specialty | Care Team | Description | +--------+---------+ + + + | 11/24/ | Office | Neurological Surgery | Danny Nolvia Liang, | | | 2019 | Visit | | [address] | | | | | | [place], [place] | | | | | | [address] | | | | | | [phone] | | | | | | | | +--------+---------+ + + + documented as of this encounter Visit Diagnoses + + | Diagnosis | + + | Hydrocephalus (HCC) - Primary Obstructive hydrocephalus | + + | Acquired equinovarus deformity of right foot | + + documented in this encounter"
--- OUTSIDE RECORDS SUMMARY | ~2019-10-25 | XMS | Encounter Summary ---
Demographics + + + | Address | [address] | | | [place] [address] | + + + | Home Phone | | + + + | Preferred Language | Unknown | + + + | Marital Status | Single | + + + | Rastafari Affiliation | NRP | + + + | Race | White | + + + | Ethnic Group | Not or | + + + Author + + + | Author | [facility] | + + + | Organization | [facility] | + + + | Address | Unknown | + + + | Phone | Unavailable | + + + Support + + + + + | Name | Relationship | Address | Phone | + + + + + | Malina Nicole | ECON | [address] | | | | | [place] | | | | | [address] | | + + + + + | Scott Nicole | ECON | Unknown | | + + + + + Care Team Providers + +------+ + | Care Consumer Recruiter Name | Role | Phone | + +------+ + | Gabe Baird DO | PCP | | + +------+ + Reason for Visit + + + | Reason | Comments | + + + | Refill Request | | + + + Encounter Details +--------+--------+ + + + | Date | Type | Department | Care Team | Description | +--------+--------+ + + + | 01/11/ | Refill | Neurosurgery at | Chang, | Refill Request | | 2019 | | [facility] [address] | REENA Hunter | | | | | [place] [facility] | [address] | | | | | Health and Healing, | [place], [place] | | | | | [facility] | [address] | | | | | floor [place], [place] | [phone] | | | | | [address] | | | | | | [phone] | | | +--------+--------+ + + + [...] [address] | | | | | | [place], [place] | | | | | | [address] | | | | | | [phone] | | | | | | | | +--------+---------+ + + + documented as of this encounter Visit Diagnoses Not on filedocumented in this encounter"
--- OUTSIDE RECORDS SUMMARY | ~2019-10-25 | XMS | Encounter Summary ---
Demographics + + + | Address | [address] | | | [place] [address] | + + + | Home Phone [...] [place] | | | | | [address] | | + + + + + | Scott Mcgarry ECON | Unknown | | + + + + + Care Team Providers + +------+ + | Care Insole Department Worker Name | Role | Phone | + [...] | | | Acute on | Kristen Duran, | [facility] [address] | | | | | chronic | [place] [address] | [address] | | | | | intracranial | [address] | [address] [facility] | | | | | subdural | [place], [place] | Hospital, | | | | | hematoma | [address] | 10th Floor | | | | | (HCC) | Phone: | [place], [place] | | | | | Procedures | [phone] | [address] | | | | | CT HEAD WO | Fax: | Phone: | | | | | CONTRAST | [phone] | [phone] | | | | | | | Fax: | | | | | | | [phone] | +--------+--------+ + + + + Encounter Details +--------+ + + + + | Date | Type | Department | Care Team | Description | +--------+ + + + + | 10/11/ | Drum Sealer | Neurosurgery at | Bernardo, | Acute on chronic | | 2017 | | [facility] [address] | REENA Hunter | intracranial | | | | [facility] for | [address] | subdural hematoma | | | | Health and Healing, | [place], [place] | ([facility]) (Primary Dx) | | | | Building | [address] | | | | | floor [place], [place] | [phone] | | | | | [address] | | | | | | [phone] | | | +--------+ + + + [...] | | 2019 | Visit | | [address] | | | | | | [place], [place] | | | | | | [address] | | | | | | [phone] | | | | | | | [...]
--- OUTSIDE RECORDS SUMMARY | ~2019-10-25 | XMS | Encounter Summary ---
Demographics + + + | Address | [address] | | | [place] [address] | + + + | Home Phone [...] [place] | | | | | [address] | | + + + + + | Scott Nicole | ECON | Unknown | | + + + + + Care Team Providers + +------+ + | Care Dispatcher Street Department Name | Role | Phone | + [...] Closed | | Radiology | Diagnoses | Ashish, | | | | | | Obstructive | Nata Wolf, | | | | | | | MD [address] | | | | | | hydrocephalu | [address] | | | | | | s ([facility]) | [address] | | | | | | Procedures | [place], [place] | | | | | | [place] | [address] | | | | | | CONTRAST | Phone: | | | | | | | [phone] | | | | | | | Fax: | | | | | | | [phone] | | +--------+--------+ + + + + Reason for Visit Diagnostic Testing (Routine) +--------+--------+ + + + + | Status | Reason | Specialty | Diagnoses / | Referred By | Referred To | | | | | Procedures | Contact | Contact | +--------+--------+ + + + + | Closed | | Radiology | Diagnoses | Ashish, | | | | | | Obstructive | Nata Wolf, | | | | | | | MD [address] | | | | | | hydrocephalu | [address] | | | | | | s ([facility]) | [address] | | | | | | Procedures | [place], [place] | | | | | | [place] | [address] | | | | | | CONTRAST | Phone: | | | | | | | [phone] | | | | | | | Fax: | | | | | | | [phone] | | +--------+--------+ + + + + Encounter Details +--------+ + + + + | Date | Type | Department | Care Team | Description | +--------+ + + + + | 08/28/ | Hospital | Radiology/Imaging | Nolvia Delgado, | | | 2018 | Encounter | Lab at [facility] [address] | MD [address] | | | | | [address] [place] for | [place], [place] | | | | | Health and Healing, | [address] | | | | | [address] | [phone] | | | | | Floor [place], [place] | | | | | | [address] | | | | | | [phone] | | | +--------+ + + + [...] | 2020 | Visit | | [address] | | | | | | [place], [place] | | | | | | [address] | | | | | | [phone] | | | | | | | | +--------+---------+ + + + documented as of this encounter Procedures + +--------+ + + + | Procedure Name | Priori | Date/Time | Associated Diagnosis | Comments | | | ty | | | | + +--------+ + + + | CT HEAD WO CONTRAST | Routin | 08/28/2017 | Obstructive | Results for this | | | e | 10:05 AM | hydrocephalus | procedure are in the | | | | PDT | | results section. | + +--------+ + + + documented in this encounter Results CT HEAD WO CONTRAST (08/28/2017 10:05 AM PDT) + + | Specimen | + + | | + + + + + | Narrative | Performed At | + + + | EXAM: CT HEAD WITHOUT CONTRAST HISTORY: eval brain | [facility] | | COMPARISON: April 09, 2017 CT head TECHNIQUE: CT of the head | RADIOLOGY VOICE | | without intravenous contrast. FINDINGS: BRAIN: Right parietal | RECOGNITION 2 | | ventriculostomy catheter with the distal tip in the left frontal horn | | | of the left lateral ventricle. Stable enlargement of the lateral | | | ventricles right greater than left. The ventricles have minimally | | | decreased overall in size from prior exam. Stable decompression of the | | | fourth ventricle. Right extra-axial fluid collection in the right | | | parietal lobe which has remodeled the adjacent calvarium and appears | | | chronic. This fluid collection has minimally increased in size from | | | prior exam previously measuring 15 mm in maximal thickness, today | | | measuring 18 mm in maximal thickness. Slightly increased extra-axial | | | fluid is seen over the left temporal lobe.. No evidence of | | | hemorrhage, mass, or acute infarction. SOFT TISSUES: Unremarkable. | | | SKULL AND SKULL BASE: No fractures or destructive lesions. Mastoids | | | and middle ears are unremarkable. FACE/ORBITS: Visualized portions | | | are unremarkable. PARANASAL SINUSES: Visualized portions are | | | unremarkable. IMPRESSION: Minimally decreased size of the | | | lateral ventricles. Interval increase in size in the bilateral | | | extra-axial fluid collections which is likely compensatory. No midline | | | shift or mass effect. I have personally reviewed the images and, | | | if necessary, edited the report. I agree with the report as now | | | presented. Final signature: Felix Heck MD 08/28/2017 10:30 | | | AM Preliminary: Felix Heck MD Dictation initiated: Felix Heck MD 08/28/2017 10:26 AM | | + + + + -----+ | Procedure Note | + -----+ | Service Account, [employer] Res In Interface - 08/28/2017 10:31 AM PDT EXAM: CT HEAD | | WITHOUT CONTRAST HISTORY: eval brain COMPARISON: April 09, 2017 CT head TECHNIQUE: | | CT of the head without intravenous contrast. FINDINGS: BRAIN: Right parietal | | ventriculostomy catheter with the distal tip in the left frontal horn of the left | | lateral ventricle. Stable enlargement of the lateral ventricles right greater than left. | | The ventricles have minimally decreased overall in size from prior exam. Stable | | decompression of the fourth ventricle. Right extra-axial fluid collection in the right | | parietal lobe which has remodeled the adjacent calvarium and appears chronic. This fluid | | collection has minimally increased in size from prior exam previously measuring 15 mm | | in maximal thickness, today measuring 18 mm in maximal thickness. Slightly increased | | extra-axial fluid is seen over the left temporal lobe.. No evidence of hemorrhage, | | mass, or acute infarction. SOFT TISSUES: Unremarkable.SKULL AND SKULL BASE: No fractures | | or destructive lesions. Mastoids and middle ears are unremarkable.FACE/ORBITS: | | Visualized portions are unremarkable.PARANASAL SINUSES: Visualized portions are | | unremarkable. IMPRESSION: Minimally decreased size of the lateral ventricles. Interval | | increase in size in the bilateral extra-axial fluid collections which is likely | | compensatory. No midline shift or mass effect. I have personally reviewed the images | | and, if necessary, edited the report. I agree with the report as now presented. Final | | signature: Felix Heck MD 08/28/2017 10:30 AM Preliminary: Felix Heck MD | | Dictation initiated: Felix Heck MD 08/28/2017 10:26 AM | |IMPRESSION: | | | |Minimally decreased size of the lateral ventricles. Interval increase in size in the bilate ral extra-axial fluid collections which is likely compensatory. No midline shift or mass eff ect. | | | |I have personally reviewed the images and, if necessary, edited the report. I agree with th e report as now presented. | | | |Final signature: Felix Heck MD 08/28/2017 10:30 AM | |Preliminary: Felix Heck MD | |Dictation initiated: Felix Heck MD 08/28/2017 10:26 AM | + -----+ + +---------+ + + | Performing | [...]
--- OUTSIDE RECORDS SUMMARY | ~2019-10-25 | XMS | Encounter Summary ---
Demographics + + + | Address | [address] | | | [place] [address] | + + + | Home Phone [...] + + + | Author | [facility] | + + + | Organization | [facility] | + + + | Address | Unknown | + + + | Phone | Unavailable | + + + Support + + + + + | Name | Relationship | Address | Phone | + + + + + | Malina Nicole | ECON | [address] | | | | | [place] | | | | | [address] | | + + + + + | Scott Mcgarry ECON | Unknown | | + + + + + Care Team Providers + +------+ + | Care Rose Grower Name | Role | Phone | + [...] | +--------+ + + + + | 09/14/ | Hospital | [facility] [address] | Nolvia Delgado, | | | 2013 - | Encounter | [address] | [address] | | | | | [id number] [facility] | [place], [place] | | | 09/15/ | | [facility], | [address] | | | 2013 | | [place] [address] | [phone] | | | | | [phone] | | | +--------+ + + + [...] Nolvia Delgado MD PCP: REENA Patricia Service: [facility] Neurosurgery Diagnoses Principal Final Diagnosis: Hydrocephalus Additional [...] the patient was followed closely by the [facility] providers, resident providers, and medical/nursing staff. Post [...] 1:42 PM Discharging Attending: Nolvia Delgado MD [facility] [id number] [address] documented in this en counter Discharge Instructions Instructions Malou Ch RN - 09/15/2013Patient Education Materials: Craniotomy post-o p instructions, AVS Additional Instructions: none Discharge Nurse: MALOU CH Date: 09/15/2013 Discharge Time: 14:20 PM AttachmentsThe following attachments cannot be sent through Care Everywhere.CRANIOTOMY : PO ST-OP (ICELANDIC)documented in this encounter Medications at Time of [...] Newman MD - 09/15/2013 10:11 AM PDT 7NSICU ATTENDING ACCOUNTANT TAX DAILY PROGRESS NOTE Team Pager: [phone] Attendin Date:09/15/2013 Critical Care Attending Physician: UBALDO NEWMAN MD Referring [facility] Physician: Nolvia Delgado MD I saw and [...] management of this patient . MD, PhD [facility] DEPARTMENT: [id number] ICU NEURO Place of Service:- Inpatient Date of Service: 09/15 CSN: [id number] Suggested Modifier: GC - Resident Involved Suggested CPT: TO RANGE MASTER RELEVANT DATA: Last Vitals: BP 137/75 | [...] 94% | BMI 31.79 kg/(m^2) Recent Labs 09/15/13 021 WBC 21.42* HB 14.4 HCT 43.1 PLT 311 Chemistries: Last 72 Hours (or 3 results): Recent Labs 09/15/13 0215 NA 141 K 3.8 CL 110* BICARB 22 BUN 13 CR 0.66 GLU 114* CA 8.7 Recent Labs 09/15/13 0215 GLU 114* Intake/Output Summary (Last 24 hours) [...] NEUROLOGICAL EXAM: Awake, alert, oriented to self, [facility], and September, (not date) Eyes open spontaneously [...] 72 hours (or 3 results) Recent Labs 09/15/13214 WBC 21.42* HB 14.4 [...] Newman. Note Author: DAVINA PIZARRO MD Pager [phone] Davin Andrews MD, H - 09/14/2013 9:16 PM PDT NEUROSURGERY [...] [address] | | | | | | [place], [place] | | | | | | [address] | | | | | | [phone] | | | | | | | [...] | | 09/14/2013ttending Surgeon: Nolvia Delgado MD Portable Track Crew Chief(s): Mehrdad | | MD Tito, PhD Preoperative [...] endoscopic third ventriculostomy. In the | | spring of 2013, she presented again with recurrence of her [...] | portions of the procedure.Mehrdad Francis MD, PhDAhkumar Delgado, YOSVANY/SCOOBYD: 09/14/2013 | | 20:56:59DT: 09/14/2013 21:33:07Job #: [id number] | + + CBC (HEMOGRAM) ONLY (09/15/2013 [...] | + + + + + | [facility] | [address] | [place] [address] | | | SERVICES, CORE | HAYDEE [...] | | | LABORATORY | | | MALTESE | | | SERVICES, | | | [...] | + + + + + | [facility] | [address] | [place] [address] | | | SERVICES, CORE | HAYDEE [...] | | | | | signed / LLOYD | | | | | [...] | + + + + + | [facility] | [address] | [place] [address] | | | SERVICES, | [address] [...] MIRIAM SIDDI[facility] | [address] | [place] [address] | | | JUANA, | HAYDEE MACHUCA | | | | TRANSFUSION MEDICINE | | | | + + + + + documented in this encounter Visit Diagnoses + + | Diagnosis | + + | Congenital hydrocephalus (HCC) - Primary Congenital hydrocephalus | + + | Hydrocephalus (HCC) Obstructive hydrocephalus | + + documented in this encounter Administered Medications + +---------+ +------+------+------+ | Medication Order | MAR | Action | Dose | Rate | Site | | | Action | Date | | | | + +---------+ +------+------+------+ | ceFAZolin (ANCEF) IV 2 g 2 g, | New Bag | 09/16/19 | 2 g | | | | intravenous, EVERY 8 HOURS, 3 | | 14 11:56 | | | | | doses, First dose on Fri09/15/13 | | AM PDT | | | | | at 0330, Last dose on Fri09/15/13 | | | | | | | at 1930 | | | | | | + +---------+ +------+------+------+ +---------+ +-----+---+---+ | New Bag | 09/16/19 | 2 g | | | | | 14 3:53 | | | | | | AM PDT | | | | +---------+ +-----+---+---+ +---+---+ | | | +---+---+ + +-------+ +--------+---+---+ | lamoTRIgine (LAMICTAL) tablet | Given | 09/16/19 | 100 mg | | | | 100 mg 100 mg, oral, TWICE | | 14 9:13 | | | | | DAILY, First dose on Fri09/14/13 | | AM PDT | | | | | at 2230, Until Discontinued | | | | | | + +-------+ +--------+---+---+ +-------+ +--------+---+---+ | Given | 09/15/19 | 100 mg | | | | | 14 11:38 | | | | | | PM PDT | | | | +-------+ +--------+---+---+ +---+---+ | | | +---+---+ + +---------+ +---------+---+---+ | meperidine (DEMEROL) injection | New Bag | 09/15/19 | 12.5 mg | | | | 25 mg 25 mg, intravenous, | | 14 9:06 | | | | | POSTPROCEDURE PRN, 1 dose, | | PM PDT | | | | | Starting Fri09/14/13 at 2100, | | | | | | | Until Fri09/14/13 at 2106, | | | | | | | shivering | | | | | | + +---------+ +---------+---+---+ + +---+ | | | + +---+ | meperidine (DEMEROL) injection | | | 1 dose, Starting Fri09/14/13 at | | | 2100, Until Fri09/14/13 at 2106 | | + +---+ | | | + +---+ + +---------+ +------+---+---+ | ondansetron (ZOFRAN) injection | New Bag | 09/16/19 | 4 mg | | | | 4 mg 4 mg, intravenous, EVERY 8 | | 14 7:18 | | | | | HOURS, 3 doses, First dose on Wed | | AM PDT | | | | | 09/15/13 at 0800, Last dose on Meera | | | | | | | 09/16/13 at 0000 | | | | | | + +---------+ +------+---+---+ +---+---+ | | | +---+---+ + +-------+ + +---+---+ | senna-docusate (SENOKOT S) | Given | 09/16/19 | 1 tablet | | | | 8.6-50 mg 1 tablet 1 tablet, | | 14 9:13 | | | | | oral, TWICE DAILY, First dose on | | AM PDT | | | | | Tj 09/14/13 at 2245, Until | | | | | | | Discontinued | | | | | | + +-------+ + +---+---+ +---+---+ | | | +---+---+ documented in this encounter
--- OUTSIDE RECORDS SUMMARY | ~2019-10-25 | XMS | Encounter Summary ---
Demographics + + + | Address | [address] | | | [place] [address] | + + + | Home Phone [...] Author + + + | Author | [facility] | + + + | Organization | [facility] | + + + | Address | Unknown | + + + | Phone | Unavailable | + + + Support + + + + + | Name | Relationship | Address | Phone | + + + + + | Malina Nicole | ECON | [address] | | | | | [place] | | | | | [address] | | + + + + + | Scott Nicole | ECON | Unknown | | + + + + + Care Team Providers + +------+ + | Care Automobile Appraiser Name | Role | Phone | + [...] Ave | | | | | [address] [place] for | [place], [place] | | | | | Health and Healing, | [address] | | | | | Building | [phone] | | | | | floor [place], [place] | | | | | | [address] | | | | | | [phone] | | | +--------+ + + + [...] | | 2019 | Visit | | [address] | | | | | | [place], [place] | | | | | | [address] | | | | | | [phone] | | | | | | | | +--------+---------+ + + + documented as of this encounter Visit Diagnoses Not on filedocumented in this encounter"
--- OUTSIDE RECORDS SUMMARY | ~2019-10-25 | XMS | Encounter Summary ---
Demographics + + + | Address | [address] | | | [place] [address] | + + + | Home Phone [...] Author + + + | Author | [facility] | + + + | Organization | [facility] | + + + | Address | Unknown | + + + | Phone | Unavailable | + + + Support + + + + + | Name | Relationship | Address | Phone | + + + + + | Malina Nicole | ECON | [address] | | | | | [place] | | | | | [address] | | + + + + + | Scott Nicole | ECON | Unknown | | + + + + + Care Team Providers + +------+ + | Care Barnworker Groom Name | Role | Phone | + +------+ + | Gabe Baird DO | PCP | | + +------+ + Reason for Visit + + + | Reason | Comments | + + + | housing accomodation | RPV approved | + + + Encounter Details +--------+ + + + + | Date | Type | Department | Care Team | Description | +--------+ + + + + | 03/15/ | Telephone | SOCIAL WORK | Demetra Olivas | housing accomodation | | 2019 | | [facility]ORY [address] | [address] | (RPV approved) | | | | [address] | [address] [place], | | | | | Mailcode: CH6A | [place] [address] | | | | | [place], [place] | | | | | | [address] | | | | | | [phone] | | | +--------+ + + + [...] [address] | | | | | | [place], [place] | | | | | | [address] | | | | | | [phone] | | | | | | | | +--------+---------+ + + + documented as of this encounter Visit Diagnoses Not on filedocumented in this encounter"
--- OUTSIDE RECORDS SUMMARY | ~2019-10-25 | XMS | Encounter Summary ---
Demographics + + + | Address | [address] | | | [place] [address] | + + + | Home Phone | | + + + | Preferred Language | Unknown | + + + | Marital Status | Single | + + + | Judaism Affiliation | NRP | + + + [...] [place] | | | | | [address] | | + + + + + | Scott Nicole | ECON | Unknown | | + + + + + Care Team Providers + +------+ + | Care Airfield Engineer Officer Name | Role | Phone | + [...] | | | | Acute on | [place], [place] | Health and | | | | | chronic | [address] | Healing, | | | | | intracranial | Phone: | [address], | | | | | subdural | [phone] | [address] Floor | | | | | hematoma | Fax: | [place], [place] | | | | | (HCC) | [phone] | [address] | | | | | Procedures | | Phone: | | | | | CT HEAD WO | | [phone] | | | | | CONTRAST [place] | | Fax: | | | | | [place] | | [phone] | | | | | SCAN,HEAD/BR | [...] [address] | | | | | [facility] | [place], [place] | | | | | [facility] He[facility], | [address] | | | | | Building [address] | [phone] | | | | | floor [place], [place] | | | | | | [address] | | | | | | [phone] | | | +--------+ + + + [...] [place] | | | | | | [place], [place] | | | | | | [address] | | | | | | [phone] | | | | | | | [...]
--- OUTSIDE RECORDS SUMMARY | ~2019-10-25 | XMS | Encounter Summary ---
Demographics + + + | Address | [address] | | | [place] [address] | + + + | Home Phone [...] + + | Author | [facility] | + + + | Organization | [facility] | + + + | Address | Unknown | + + + | Phone | Unavailable | + + + Support + + + + + | Name | Relationship | Address | Phone | + + + + + | Malina Nicole | ECON | [phone] | | | | | [place] | | | | | [address] | | + + + + + | Scott Mcgarry ECON | Unknown | | + + + + + Care Team Providers + +------+ + | Care Stick Welder Name | Role | Phone | + [...] + + + + | 02/07/ | Hospital | [facility] [address] | Nolvia Delgado, | | | 2015 - | Encounter | [address] | [address] | | | | | [id number] [facility] | [place], [place] | | | 02/08/ | | [facility], | [address] | | | 2014 | | [place] [address] | [phone] | | | | | [phone] | | | +--------+ + + + [...] + + + | Blood Pressure | 138/98 | 02/08/2015 8:00 AM | | | | | PST | | + + + + + | Pulse | 108 | 02/08/2015 8:00 AM | | | | | PST | | + + + + + | Temperature | 37 C (98.6 F) | 02/08/2015 8:00 AM | | | | | PST | | + + + + + | Respiratory Rate | 24 | 02/08/2015 8:00 AM | | | | | PST | | + + + + + | Oxygen Saturation | 90% | 02/08/2015 8:00 AM | | | | | PST | | + + + + + | Inhaled Oxygen | - | - | | | Concentration | | | | + + + + + | Weight | 95.3 kg (210 lb) | 02/07/2015 9:09 AM | | | | | PST | | + + + + + | Height | 172.7 cm (5' 8") | 02/07/2015 9:09 AM | | | | | PST | | + + + + + | Body Mass Index | 31.93 | 02/07/2015 9:09 AM | | | | | PST | | + + + + + documented in this encounter Discharge Summaries Davina Gee MD - 02/08/2015 8:10 AM PSTFormatting of this note might be different from t he original. NEUROSURGERY DISCHARGE SUMMARY: Patient: Rin Casas Admission Date: 02/07/2015 Discharge Date: 02/08/2015 Attending Physician: Nolvia Delgado MD PCP: REENA Gusman Service: 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 Status post prior endoscopic third ventriculostomy x2. Additional Diagnoses: Past Medical History: Epilepsy, partial (HCC) Cerebral palsy (HCC) Spastic quadriparesis (HCC) H/O hydrocephalus S/P placement of VNS (vagus nerve stimulation)* 2000 Seizures (HCC) Legally blind Procedures Redo left frontal approach for an endoscopic third ventriculostomy 02/07/15 Brief Hospital Course Rin Casas is a 44 y.o. 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 She is status post prior endoscopic third ventriculostomy x 2.The patien t was admitted to [facility], electively on 02/07/2015 for a Redo left frontal approach for an end oscopic third ventriculostomy. The inpatient stay related to this procedure(s) took an uncom plicated perioperative course and the patient was followed closely by the attending provider s, resident providers, and medical/nursing staff. Post operatively, the patient was admitted to the NSICU for close neurologic and hemodynami c monitoring. A head CT revealed expected post op changes. When stable, the patient was tr ansferred to the [facility] for ongoing convalescent care. The patient made appropriate gains towa rd activity and functional goals while an inpatient. The patient worked with our rehabilita tion team with recommendation for home upon discharge. While on the hospital floor, the patient tolerated oral intake sufficient to maintain nutri tion and hydration. The surgical wound remained clean, dry, and intact without signs concern ing for infection. The patient was felt appropriate for discharge to home on 02/08/2015, an d the patient and/or family members agree with this course of action. Activity Lifting restrictions: No lifting more than 15 pounds x 6 weeks. Ok to use arms for bed mobility, transfers and assistive devices. Avoid repetitive bending below waist level and all strenuous activity until further notice. Follow Up Appointments: Follow Up Follow up at [facility] Neurosurgery Clinic, [facility], 8th Floor, [address] [place] [address]; with Kristen Chang in 2 weeks for wound chec k Condition on Discharge Good PCP:REENA Gusman When: Please follow-up with your [...] tablet Take 2 tablets by mouth every four hours as needed. bisacodyl 10 mg rectal suppository Unrwap and insert 1 suppository rectally once daily as n eeded for constipation (for no BM in past 2 days). Qty: 5 suppository, Refills: 1 ondansetron ODT (ZOFRAN ODT) 4 mg oral tablet,disintegrating Take 1 tablet by mouth every t welve hours as needed. Qty: 5 tablet, Refills: 1 polyethylene glycol 17 gram/dose oral powder Take 34 g by mouth three times daily as needed (for no BM for 2 days). Qty: 119 g, Refills: 1 CONTINUE these medications which have NOT CHANGED Details lamoTRIgine 100 mg Oral tablet Take 100 mg by mouth two times daily. MULTIVITAMIN ORAL Take 1 tablet by mouth once daily in the morning. VITAMIN B COMPLEX ORAL Take 1 tablet by mouth once daily in the morning. Special Instructions/Tests: none Condition On Discharge: Good Vital Signs at discharge as appropriate: BP: 139/79 mmHg (02/08/15 0700) Pulse: 103 (11/25/15 0700) Resp: 22 ( 02/08/15699) Weight: 95.255 kg (210 lb) (02/07/15 09) Discharge Patient To: Home Does patient have a planned readmission: No Discharge Summary Completed?: Yes. 02/08/2015 Discharging Provider: Davina Gee MD Date Completed: 02/08/2015 Time Completed: 8:10 AM Discharging Attending: Nolvia Delgado MD [facility] [address] [address] [address] documented in this en counter Discharge Instructions Instructions Verenice Gonzalez RN - 02/08/2015Patient Education Materials: None given Additional Instructions: Shower is OK. Discharge Nurse: Verenice Gonzalez Date: 02/08/2015 Discharge Time: 8:18 AM documented in this encounter Medications at Time [...] documented as of this encounter Progress Notes Verenice Gonzalez RN - 02/08/2015 9:34 AM PSTPt discharged to home with mom and dad. Pt marquez s not voided, but patient and the mother stated that she typically cannot void in a BSC and usually gets back to her normal routine after she gets home. I stated that if she still john ot void after she gets home, which is a 4 hour car ride, to go to the hospital or contact he r PCP. The patient and her mother were agreeable. Davina Muñoz MD - 02/08/2015 8:08 AM PSTFormatting of this not e might be different from the original. NEUROSURGERY PROGRESS NOTE 02/08/2015 Hospital Day #: 1 Attending: Nolvia Delgado MD Interval Events: No acute events overnight Pain well controlled Subjective: no complaints. Wants to go home. Objective: Last Vitals: BP 139/79 | Pulse 103 | Temp 37 C (98.6 F) | RR 22 | Ht 1.727 m (5' 8") | Wt 95.255 kg (210 lb) | SpO2 93% | BMI 31.94 kg/(m^2) 24 Hour Vital Min/Max: Systolic (24hrs), Av mmHg, Min:109 mmHg, Max:139 mmHg Diastolic (24hrs), Av mmHg, Min:55 mmHg, Max:97 mmHg Pulse Min: 86 Max: 113 Temp Min: 36.3 C (97.3 F) Max: 37 C (98.6 F) Resp Min: 13 Max: 22 SpO2 Min: 91 % Max: 99 % Intake/Output Summary (Last 24 hours) at 02/08/15 0808 Last data filed at 02/08/15 0700 Gross per 24 hour Intake 2515 ml Output 1295 ml Net 1220 ml Last 24 hour min/max Temp: 37 C (98.6 F) Temp Min: 36.3 C (97.3 F) Max: 37 C (98.6 F) Pulse: 103 Pulse Min: 86 Max: 113 Resp: 22 Resp Min: 13 Max: 22 BP: 139/79 mmHg BP Min: 109/55 Max: 139/79 SpO2: 93 % SpO2 Min: 91 % Max: 99 % Body mass index is 31.94 kg/(m^2). I/O/Drains Current Shift I/O/Drains Last 3 Completed Shifts 02/07 0701 - 02/08 0700 In: 2515 [I.V.:2515] Out: 1295 [Urine:1295] @DRAINICPVALUESHEIGHT@ Physical Exam: Awake, alert, oriented to self, time, place, situation PERRL, restricted lateral gaze bilaterally and upgaze Face symmetric Tongue midline No pronator drift Strength 5/5 BUE and BLE, baseline RLE DF and PF 2/5 Incision c/d/i. No surrounding erythema, swelling or drainage. Labs: Complete Blood Count/Coags Recent Labs 02/07/15 0936 02/08/15 0413 WBC 13.12* 17.34* HB 15.1 13.4 HCT 45.8 41.3 PLT 302 286 Invalid input(s): INR CSF Results No results for input(s): WBCCSF, RBCCSF, GLUCOSECSF, PROTEINCSF in the last 8640 hours. Chemistry Recent Labs 02/08/15 0413 NA 142 K 3.9 CL 112* BICARB 22 BUN 9 CR 0.66 GLU 80 CA 7.8* MG 1.8 PO4 2.5 Culture Results CULT, URINE SCREEN (no units) Date Value 02/07/2015 Negative Current Inpatient Medications Medication Dose Route Frequency acetaminophen (TYLENOL) tablet 650 mg 650 mg oral Q4H PRN bisacodyl (DULCOLAX) suppository 10 mg 10 mg rectal DAILY PRN ceFAZolin (ANCEF) 2 g in NaCl 0.9 % IV 2 g intravenous Q8H lamoTRIgine (LAMICTAL) tablet 100 mg 100 mg oral BID multivitamin 1 capsule 1 capsule oral DAILY NaCl 0.9%-KCl 20 mEq/L IV infusion intravenous CONTINUOUS ondansetron (ZOFRAN) injection 4 mg 4 mg intravenous Q8H PRN Followed by [START ON 02/10/2015] ondansetron (ZOFRAN) injection 4 mg 4 mg intravenous Q12H PRN polyethylene glycol (MIRALAX) powder 34 g 34 g oral TID PRN senna-docusate (SENOKOT S) 8.6-50 mg 1 tablet 1 tablet oral BID Imaging: None needed Assessment: Rin Casas is a 44 y.o. female POD #1 s/p redo ETV and lysis of prepontine adhesions. Doing well. Plan: - discharge home today as long as patient is able to walk, eat, and is at neurological base line Davina Gee MD PGY-2, Neurosurgery 8:08 AM, 02/08/2015 ian Wade ACNP - 1 04/10/2014 5:47 AM PST 7NSICU Neuroscience ICU Progress Note Patient name: Rin Casas Author: DILMA Nichole Date of Service: 02/08/2015 Intensive Care Attending: MD Roger Attending Provider: Nolvia Delgado MD ICU day # 2, POD # 1 s/p redo left frontal approach for endoscopic third ventriculostomy. HPI: Rin Casas is a 44 y.o. female with history of post-infectious hydrocephalus, aqu eductal stenosis, and cerebral palsy who has undergone ETV x2, last revision 09/14/2013 who p resents with worsening symptoms of spasticity and weakness. MRI brain revealing large ventri cular system with pituitary pseudotumor from CSF pouching signifying CSF collection and locu lation. She was evaluated by Dr. Delgado and is now s/p redo left frontal approach for ETV on 02/07/2015. Intra-operatively, ETV found to be open. There were obstructive adhesions in pr epontine space which were opened down to foramen magnum per operative report. 24 Hour Events: - to OR for redo ETV - no acute events overnight PE: Last 24 hour min/max Temp: 37 C (98.6 F) Temp Min: 36.3 C (97.3 F) Max: 37 C (98.6 F) Pulse: 95 Pulse Min: 86 Max: 113 Resp: 13 Resp Min: 13 Max: 21 BP: 120/71 mmHg BP Min: 109/55 Max: 139/75 SpO2: 92 % SpO2 Min: 92 % Max: 99 % Body mass index is 31.94 kg/(m^2). Neurological: A&Ox4; PERRL; unable to do upward gaze b/l; face symmetric; hearing intact to voice; V1-V3 symmetric; tongue midline; +cough/gag/corneals; LUE/LLE > AG 5/5, sensation intact; RUE/RLE 4/5 sensation intact. No tremors or clonus noted on my exam. Cardiovascular: NSR/ST, normal s1/s2, no m/r/g, pulses 2+ in all ext Respiratory: BS symmetric, CTA in all cervantes, moving air well, no wheezes, rales or rhonch i Resp Av.4 Min: 13 Max: 21 SpO2 Av % Min: 92 % Max: 99 % GI: Abd soft NT/ND, normal active BS present in all quadrants : Navarro catheter: No; Input/Output Summary: Intake/Output Summary (Last 24 hours) at 02/08/15 0547 Last data filed at 02/08/15 0400 Gross per 24 hour Intake 2280 ml Output 1295 ml Net 985 ml HEME/ID: TM: Temp (24hrs), Av.6 C (97.9 F), Min:36.3 C (97.3 F), Max:37 C (98 .6 F) Musculoskeletal/Skin: extremities warm, well perfused, no edema, cyanosis or clubbing; sk in without rashes or significant breakdown Problem List: Patient Active Problem List Diagnosis Hydrocephalus Acquired equinovarus deformity of right foot Assessment & Plan: Neurological # Aqueductal stenosis # Cerebral palsy # hx of epilepsy # Hydrocephalus # bilateral blindness -serial neuro checks, q1hr -pain control w/ APAP -home lamotrigine -stable for discharge Cardiovascular # no active issues -sBP goal < 160mmHg -PRN aHTN per MAR to achieve goal Respiratory # no active issues -maintain O2 > 92% -aggressive pulmonary toilet -mobilize to cardiac chair FEN/GI # no active issues -diet: regular -GI prophylaxis n/a -NSICU bowel protocol -K and Mg SS per MAR, continue to monitor and replace electrolytes PRN w/ daily RFS Renal # preserved renal function -navarro: not indicated -I/O goal euvolemia Heme/ID # leukocytosis -white count 17K; afebrile; HDS; no increase in oxygen demand. Continue to monitor -periop cefazolin per NSG -SCDs for DVT prophylaxis -daily CBC Endocrine # no active issues -no need for SSI MS/Skin # at risk for skin breakdown -routine decubitus ulcer prevention -mobilize as tolerated Other -family updated PRN -L/T/D: PIV x2 -disposition: stable for discharge F: regular A: APAP S: none T: SCDs H: >30 degrees U: n/a G: n/a GOALS: SBP < 160 MAP > 65 ICP < 20 CPP > 70 Sodium Goals 135-145 Magnesium > 2 I/O goal Euvolemic: -500 to +500 Hgb > 9 Relevant Risks: This patient is currently at risk for the following: cerebral edema, cooper ctrolyte imbalance, hydrocephalus, intracerebral hemorrhage, ischemic stroke and seizure; ar rhythmia and myocardial infarction; DVT/Pulmonary embolism, dysphagia, edema, respiratory co mpromise and skin deconditioning including pressure ulcer. This patient has been staffed with Dr. Duran, attending physician, who agrees with the ab ove assessment and plan. This patient is not critically ill. I have personally and independently examined this pt an d spent in excess of 28 minutes discontinuously taking care of this patient. This care inclu araceli but is not limited to direct patient care, communication with family, nursing staff, and consultants. This time is exclusive of procedures. DILMA Nichole [facility] DEPARTMENT: [id number] ICU NEURO Place of Service:- Inpatient Date of Service: 02/08/2015 CSN: [id number] Suggested Modifier: None Suggested CPT: TO MACHINE GROUP LEADER Recent Labs 02/08/15412 NA 142 K 3.9 CL 112* BICARB 22 BUN 9 CR 0.66 CA 7.8* MG 1.8 PO4 2.5 Recent Labs 02/07/15 0936 02/08/15 0413 WBC 13.12* 17.34* HB 15.1 13.4 HCT 45.8 41.3 PLT 302 286 Current Medications: Current Inpatient Medications Medication Dose Route Frequency acetaminophen (TYLENOL) tablet 650 mg 650 mg oral Q4H PRN bisacodyl (DULCOLAX) suppository 10 mg 10 mg rectal DAILY PRN ceFAZolin (ANCEF) 2 g in NaCl 0.9 % IV 2 g intravenous Q8H lamoTRIgine (LAMICTAL) tablet 100 mg 100 mg oral BID multivitamin 1 capsule 1 capsule oral DAILY NaCl 0.9%-KCl 20 mEq/L IV infusion intravenous CONTINUOUS ondansetron (ZOFRAN) injection 4 mg 4 mg intravenous Q8H Followed by ondansetron (ZOFRAN) injection 4 mg 4 mg intravenous Q8H PRN Followed by [START ON 02/10/2015] ondansetron (ZOFRAN) injection 4 mg 4 mg intravenous Q12H PRN polyethylene glycol (MIRALAX) powder 34 g 34 g oral TID PRN senna-docusate (SENOKOT S) 8.6-50 mg 1 tablet 1 tablet oral BID Amy Novak MD - 02/07/2015 10:14 PM PST 7NSICU ATTENDING NEUROINTENSIVIST PROGRESS NOTE Team Pager: [phone] Attendin -------- EVENING NOTE -------- Date:02/07/2015 Critical Care Attending Physician: Amy Marr MD Referring At tending Physician: Nolvia Delgado MD This evening, at 10:14 PM, I saw and evaluated the patient at the bedside with the HO/PA. I reviewed all data and the the recent imaging available. I appreciate the plan of care by t he admitting (primary) team and the consultants involved. (Relevant data is listed at the rosie ttom of this note) CC / Last 12-24hr: POD #0, s/p re ETV; rn wound care HC R sided UE weakness and spasticity; nystagm, legally blind = together baseline; A&O x4; min imal pain; tylenol Hx/o epilepsy; on home AED CV: tachy; no ectopy Pulmo: sats in 90s on RA Plan: cont meds as above; pain meds, frequent neuro checks, continuous card + sat monitorin g, FAST HUG Relevant Risks: This patient is currently at risk for the following: cerebral edema, hyd rocephalus, intracerebral hemorrhage and seizure; arrhythmia; DVT/Pulmonary embolism, ICU de lirium and respiratory compromise. I spent 33 minutes actively involved in the care and management of this patient who is cri tically ill and is being treated for s/p crani for ETV and the risks as listed above at thi s time. , PhD [facility] DEPARTMENT: [id number] ICU NEURO Place of Service:- Inpatient Date of Service: 02/07 CSN: [id number] Suggested Modifier: Suggested CPT: TO MACHINE GROUP LEADER RELEVANT DATA: Last Vitals: BP 123/59 | Pulse 108 | Temp 36.7 C (98.1 F) | RR 14 | Ht 1.727 m (5' 8") | Wt 95.255 kg (210 lb) | SpO2 92% | BMI 31.94 kg/(m^2) Intake/Output Summary (Last 24 hours) at 02/07/15 2214 Last data filed at 02/07/15 2100 Gross per 24 hour Intake 1545 ml Output 845 ml Net 700 ml Recent Labs 02/07/15 0936 WBC 13.12* HB 15.1 HCT 45.8 PLT 302 [facility], Davina Luna MD - 02/07/2015 2:00 PM [facility] NEUROSURGERY POST OPERATIVE CHECK Author: Davina Gee MD Date: 02/07/2015 Attending Physician: Nolvia Delgado MD PROCEDURE: s/p redo left frontal approach for ETV, with intraop findings showing ETV open, with obstructive adhesions in prepontine space opened down to foramen magnum S: No complaints, reports minimal head pain VITAL SIGNS: BP 129/82 | Pulse 86 | Temp 36.3 C (97.3 F) | RR 17 | Ht 1.727 m (5' 8") | Wt 95.255 kg (210 lb) | SpO2 95% | BMI 31.94 kg/(m^2) PHYSICAL EXAM FINDINGS: A&O to name, date, location, and situation; following commands, answering appropriately PERRL limited upgaze, and bilateral lateral gaze Face motor grossly intact; eyes close fully BUE and BLE increased spasticity with some contractures, but overall strength at least 4/5 Incision covered with dressing - C/D/I. Flat. No fluid collection. No fluctuance. No drai nage/CSF leak noted POST OPERATIVE IMAGING: none needed A/P: Neurologically stable. Continue care: - Neuro checks q 1 hour - Keep incision and dressings C/D/I. - Maintain adequate analgesia with goal RASS 0 - SBP 100-160 - ADAT - Utilize bowel regimen for goal 1 BM per 24 hours - SCDs while in bed Davina Gee PGY-2, Neurological Surgery documented in this encou nter Plan of Treatment +--------+---------+ + + + | Date | Type | Specialty | Care Team | Description | +--------+---------+ + + + | 11/24/ | Office | Neurological Surgery | Nolvia Delgado, | | | 2019 | Visit | | [address] | | | | | | [facility] [place] | | | | | | [address] | | | | | | [phone] | | | | | | | [...] for this | | | e | 11:23 AM | | procedure are in the | | | | PST | | results section. | + +--------+ + + + | OPERATION RECORD | | 02/10/2015 | | Results for this | | | | 10:56 AM | | procedure are in the | | | | PST | | results section. | + +--------+ + + + | CBC (HEMOGRAM) ONLY | Urgent | 02/08/2015 | | Results for this | | | | 4:13 AM | | procedure are in the | | | | PST | | results section. | + +--------+ + + + | INR | Urgent | 02/08/2015 | | Results for this | | | | 4:13 AM | | procedure are in the | | | | PST | | results section. | + +--------+ + + + | RENAL FUNCTION SET | Urgent | 02/08/2015 | | Results for this | | (NA,K,CL,CO2,BUN,CRE | | 4:13 AM | | procedure are in the | | AT,GLUC,CA,PHOS,ALB | | PST | | results section. | | ) | | | | | + +--------+ + + + | CBC ONLY | Urgent | 02/08/2015 | | Results for this | | | | 4:13 AM | | procedure are in the | | | | PST | | results section. | + +--------+ + + + | MAGNESIUM, PLASMA | Urgent | 02/08/2015 | | Results for this | | | | 4:13 AM | | procedure are in the | | | | PST | | results section. | + +--------+ + + + | UA, DIPSTICK ONLY | Urgent | 02/07/2015 | | Results for this | | | | 4:00 PM | | procedure are in the | | | | PST | | results section. | + +--------+ + + + | URINE, MICROSCOPIC | Urgent | 02/07/2015 | | Results for this | | EXAM | | 4:00 PM | | procedure are in the | | | | PST | | results section. | + +--------+ + + + | URINE SCREEN FOR | Urgent | 02/07/2015 | | Results for this | | CULTURE | | 4:00 PM | | procedure are in the | | | | PST | | results section. | + +--------+ + + + | CULTURE, URINE [facility] | Urgent | 02/07/2015 | | Results for this | | | | 12:15 PM | | procedure are in the | | | | PST | | results section. | + +--------+ + + + | CULTURE, URINE BACTI | Urgent | 02/07/2015 | | Results for this | | | | 12:15 PM | | procedure are in the | | | | PST | | results section. | + +--------+ + + + | ENDOSCOPIC 3RD | Electi | 02/07/2015 | Acquired cerebral | | | VENTRICULOSTOMY | ve | 11:45 AM | ventriculomegaly | | | PLACEMENT | Surgic | PST | | | | | al | | | | + +--------+ + + + +---+--------+ | | | | | Specia | | | l | | | Needs | | | ICU | | | POST - | | | NSICU | | | TEAM | +---+--------+ + +--------+ +---+ + | CBC (HEMOGRAM) ONLY | Urgent | 02/07/2015 | | Results for this | | | | 9:36 AM | | procedure are in the | | | | PST | | results section. | + +--------+ +---+ + | CBC ONLY | Urgent | 02/07/2015 | | Results for this | | | | 9:36 AM | | procedure are in the | | | | PST | | results section. | + +--------+ +---+ + | COAGULOPATHY PANEL | Routin | 02/07/2015 | | Results for this | | (INR,APTT,FIBRINOGEN | e | 9:36 AM | | procedure are in the | | ) | | PST | | results section. | + +--------+ +---+ + | ANTIBODY SCREEN | Urgent | 02/07/2015 | | Results for this | | | | 9:36 AM | | procedure are in the | | | | PST | | results section. | + +--------+ +---+ + | TYPE AND SCREEN | Urgent | 02/07/2015 | | Results for this | | | | 9:36 AM | | procedure are in the | | | | PST | | results section. | + +--------+ +---+ + | ABO & RH TYPE | Urgent | 02/07/2015 | | Results for this | | | | 9:36 AM | | procedure are in the | | | | PST | | results section. | + +--------+ +---+ + | CARDIOLOGY | | 02/07/2015 | | Results for this | | | | 12:00 AM | | procedure are in the | | | | PST | | results section. | + +--------+ +---+ + documented in this encounter Results PROCEDURE NOTE (04/20/2015 11:23 AM PST)OPERATION RECORD (02/10/2015 10:56 AM PST) + + | Transcriptions | + + | Nolvia Delgado MD - 02/07/2015 10:05 PM PST Date of Service: 02/07/2015 | | Attending Surgeon: Nolvia Delgado MD Retirement Assistant(s): Nata | | Maryann Hinojosa MD Preoperative Diagnoses: 1. Recurrent hydrocephalus | | secondary toacqueuctal stenosis and postinfectious encephalitis.2. Status post prior | | endoscopic third ventriculostomy x2.Postoperative Diagnoses: 1. Recurrent hydrocephalus | | secondary to acqueuctal stenosis and postinfectious encephalitis.2. Status post prior | | endoscopic third ventriculostomy x2.Procedures Performed: Redo left frontal approach | | for an endoscopic third ventriculostomy.Estimated Blood Loss: Less than 20 cc.Fluids: | | Please see anesthesia record.Specimen: Urine was sent for UTI workup.Complications: | | None.Drains: None.Disposition: To PACU, then neuro ICU.Findings: The ETV was found to | | be open. There were some obstructive adhesions in the prepontine space, which were | | opened all the way down to the foramen magnum. Unable to open the lamina terminalis due | | to a difficult working angle of the scope.Indications: This is a 44-year-old female | | who had a history of early life toxoplasmosis infection, who then developed | | cerebral palsy with right-sided weakness and spasticity, as well as a mixture of | | obstructive and communicating hydrocephalus, likely. She has had 2 prior ETVs, both of | | which were done on the left. She appeared to have worsening symptoms and her imaging | | showed increased bowing of the third ventricle. She was therefore indicated for the | | above procedure. A PARQ session was held with the patient's caregiver, who agreed and | | requested we proceed with surgery.Procedure In Detail: Rin Casas was identified in | | the preoperative holding area. She was then brought back to the operative suite, where | | she was intubated under general endotracheal anesthesia. She was placed in supine | | position on a regular table. We then prepped and draped out the left frontal incision | | in usual sterile fashion using alcohol, ChloraPrep, and Hibiclens. A preoperative pause | | was done to confirm correct patient, side, position, and procedure. This was all | | correct, so we proceeded. She received Ancef preoperatively. A 10-blade was used to | | open up the planned curvilinear incision, and then we dissected down to the pericranium | | and reflected the flap posteriorly. We then used curette and Kerrison to enlarge the | | pre-existing left frontal bur hole. Once this was adequately enlarged, we then placed | | the endoscope in, and we found ourselves in the left frontal horn of the ventricle. We | | verified our known landmarks and then went through the foramen of Monro and were able to | | visualize the floor of the third ventricle. We could see that there was a small open | | hole in the third ventricle. We widened this hole with the endoscope, and looking into | | the prepontine space, there were obstructive adhesions in this area. We found a small | | area where we could enter using gentle dissection with the Bugbee cautery, but without | | using cautery. We then widened this hole gently with the endoscope until there was good | | CSF flow. We were able to advance the endoscope all the way down to the foramen magnum | | at this point. We then attempted to fenestrate the lamina terminalis, but we were | | unable to given the angle of the scope. It was very close to the optic chiasm and the | | ACAs. Given the fact we could not safely fenestrate lamina terminalis, we were still | | satisfied with our redo ETV, as there was good flow and patency. We therefore turned | | our attention to closure. The endoscope was removed. Small piece of dry Gelfoam was | | placed within the hole, and we turned our attention to closure. The wound was copiously | | irrigated with bacitracin solution. The galea was reapproximated using 3-0 interrupted | | inverted Vicryl sutures and the skin was closed running 4-0 Rapide. The wound was | | cleaned and dried, and a layer of bacitracin and Telfa was placed on top. Drapes were | | then removed. The patient was then allowed to awaken from anesthesia. She was | | extubated and taken to the PACU in stable condition. All counts were correct x2. | | Danny was present for the critical portion of the procedure.Rciky Louie | | Azul Delgado MDFA/MODLDD: 02/07/2015 15:56:49DT: 02/07/2015 22:05:28Job #: | | [id number] was present for the critical portions of the procedure as described in | | the note for this encounter.Ricky Sanz MDOH 7C [id number] | | [id number], [place] [id number] | | | | | | | |Nata Hinojosa MD | | | | | |Nolvia Delgado MD | |FAH/MODL | | | | | | /[id number] | | | |I was present for the critical portions of the procedure as described in the note for this encounter. | | | |Nlovia Delgado MD | | | |Nolvia Delgado MD | |[facility] | |[address] [facility] [address] | |[id number] | |[place] [address] | |[phone] | + + CBC (HEMOGRAM) ONLY (02/08/2015 4:13 AM PST) + + + + + + | Component | Value | Ref Range | Performed | Pathologist | | | | | At | Signature | + + + + + + | WHITE CELL | 17.34 (H) | 4.40 - 11.00 | [facility] | | | COUNT | | K/cu mm | LABORATORY | | | | | | SERVICES, | | | | | | CORE | | + + + + + + | RED CELL | 4.34 | 4.00 - 5.20 | [facility] | | | COUNT | | M/cu mm | LABORATORY | | | | | | SERVICES, | | | | | | CORE | | + + + + + + | HEMOGLOBIN | 13.4 | 12.0 - 16.0 | [facility] | | | | | g/dL | LABORATORY | | | | | | SERVICES, | | | | | | CORE | | + + + + + + | HEMATOCRIT | 41.3 | 36.0 - 46.0 % | [facility] | | | | | | LABORATORY | | | | | | SERVICES, | | | | | | CORE | | + + + + + + | MCV | 95.2 | 80.0 - 96.0 fL | [facility] | | | | | | LABORATORY | | | | | | SERVICES, | | | | | | CORE | | + + + + + + | MCHC | 32.4 | 33.0 - 35.5 | [facility] | | | | | g/dL | LABORATORY | | | | | | SERVICES, | | | | | | CORE | | + + + + + + | RDW SD | 45.8 | 35.1 - 46.3 fL | [facility] | | | | | | LABORATORY | | | | | | SERVICES, | | | | | | CORE | | + + + + + + | PLATELET | 286 | 150 - 400 K/cu | [facility] | | | COUNT | | mm | LABORATORY | | | | | | SERVICES, | | | | | | CORE | | + + + + + + | MPV | 9.8 | 9.7 - 12.3 fL | [facility] [...] | + + + + + | [facility] | [address] | [place] [address] | | | SERVICES, CORE | [address] | | | + + + + + INR (02/08/2015 4:13 AM PST) + +-------+ + + + | Component | Value | Ref Range | Performed | Pathologist | | | | | At | Signature | + +-------+ + + + | INR | 1.08 | 0.90 - 1.20 INR | [facility] [...] | + + + + + | [facility] | [address] | [place] [address] | | | SERVICES, CORE | [address] | | | + + + + + RENAL FUNCTION SET (NA,K,CL,CO2,BUN,CREAT,GLUC,CA,PHOS,ALB ) (02/08/2015 4:13 AM PST) + +---------+ + + + [...] + + + | BUN, PLASMA | 9 | 6 - 20 mg/dL | [facility] [...] | | | LABORATORY | | | MACANESE | | | SERVICES, | | | | | | CORE | | + +---------+ + + + | EGFR NON | >60 | >60 mL/min | [facility] | | | -MONTY | | | LABORATORY | | | RICAN | | | SERVICES, | | | | | | CORE | | + +---------+ + + + | SODIUM, | 142 [...] +---------+ + + + | CALCIUM, | 7.8 (L) | 8.6 - 10.2 | [facility] | | | PLASMA | | mg/dL | LABORATORY | | | (LAB) | | | SERVICES, | | | | | | CORE | | + +---------+ + + + | ALBUMIN, | 3.0 (L) | 3.5 - 4.7 g/dL | [...] the MDRD equation recommended by the | [facility] | | National Kidney Disease Education [...] | + + + + + | [facility] | [address] | [place] [address] | | | SERVICES, CORE | [address] | | | + + + + + MAGNESIUM, PLASMA (02/08/2015 4:13 AM PST) + +-------+ + + + | Component | Value | Ref Range | Performed | Pathologist | | | | | At | Signature | + +-------+ + + + | MAGNESIUM,P | 1.8 | 1.8 - 2.5 mg/dL | [facility] | | | LASMA | | [...] | + + + + + | [facility] | [address] | [place] [address] | | | SERVICES, CORE | [address] | | | + + + + + HECTOR MORALES (02/07/2015 4:00 PM PST) + + + + + + | Component | Value | Ref Range | Performed | Pathologist | | | | | At | Signature | + + + + + + | COLOR(UR) | Yellow | | [facility] | | | | | | LABORATORY | | | | | | SERVICES, | | | | | | CORE | | + + + + + + | APPEARANCE | Clear | | [facility] | | | | | | LABORATORY | | | | | | SERVICES, | | | | | | CORE | | + + + + + + | GLUCOSE(UR) | Negative | Negative, 50.0 | [facility] | | | | | mg/dL | LABORATORY | | | | | | SERVICES, | | | | | | CORE | | + + + + + + | PROTEIN(LAB | Negative | Negative, 30.0 | [facility] | | | ) | | mg/dL | LABORATORY | | | | | | SERVICES, | | | | | | CORE | | + + + + + + | BILIRUBIN | Negative | Negative | [facility] | | | | | | LABORATORY | | | | | | SERVICES, | | | | | | CORE | | + + + + + + | UROBILINOGE | <2.0 | <2.0 mg/dL | [facility] | | | N | | | LABORATORY | | | | | | SERVICES, | | | | | | CORE | | + + + + + + | PH(UR) | 7.0 | 5.0 - 8.0 | [facility] | | | | | | LABORATORY | | | | | | SERVICES, | | | | | | CORE | | + + + + + + | BLOOD | Negative | Negative | [facility] | | | | | | LABORATORY | | | | | | SERVICES, | | | | | | CORE | | + + + + + + | KETONES | Negative | Negative mg/dL | [facility] | | | | | | LABORATORY | | | | | | SERVICES, | | | | | | CORE | | + + + + + + | NITRITES | Negative | Negative | [facility] | | | | | | LABORATORY | | | | | | SERVICES, | | | | | | CORE | | + + + + + + | LEUKOCYTE | Negative | Negative | [facility] | | | ESTERASE | | | LABORATORY | | | | | | SERVICES, | | | | | | CORE | | + + + + + + | SPECIFIC | 1.016 | 1.005 - 1.030 | [facility] | | | GRAVITY | | | LABORATORY | | | [...] LABORATORY | [address] | [place] [address] | | | SERVICES, CORE | [address] | | | + + + + + URINE, MICROSCOPIC EXAM (02/07/2015 4:00 PM PST) + +---------+ + + + | Component | Value | Ref Range | Performed | Pathologist | | | | | At | Signature | + +---------+ + + + | RED CELLS | 3 | 0 - 3 /hpf | [facility] | | | | | | LABORATORY | | | | | | SERVICES, | | | | | | CORE | | + +---------+ + + + | WHITE CELLS | 1 | 0 - 5 /hpf | [facility] | | | | | | LABORATORY | | | | | | SERVICES, | | | | | | CORE | | + +---------+ + + + | BACTERIA | None | None /hpf | [facility] | | | | | | LABORATORY | | | | | | SERVICES, | | | | | | CORE | | + +---------+ + + + | YEAST (LAB) | None | None /hpf | [facility] | | | | | | LABORATORY | | | | | | SERVICES, | | | | | | CORE | | + +---------+ + + + | SQUAMOUS | Few (A) | None /hpf | [facility] | | | EPITHELIAL | | | LABORATORY | | | | | | SERVICES, | | | | | | CORE | | + +---------+ + + + | MUCOUS | None | None /hpf | [facility] | | | | | | LABORATORY | | | | | | SERVICES, | | | | | | CORE | | + +---------+ + + + | TRICHOMONAS | None | None /hpf | [facility] | | | | | | LABORATORY | | | | | | SERVICES, | | | | | | CORE | | + +---------+ + + + | NON-SQUAMOU | None | None /hpf | [facility] | | | S EPITH | | | LABORATORY | | | | | | SERVICES, | | | | | | CORE | | + +---------+ + + + | HYALINE | 0 | 0 - 2 /lpf | [facility] | | | CASTS | | | LABORATORY | | | | | | SERVICES, | | | | | | CORE | | + +---------+ + + + | GRANULAR | 0 | 0 - 2 /lpf | [facility] | | | CASTS | | | LABORATORY | | | | | | SERVICES, | | | | | | CORE | | + +---------+ + + + | CELLULAR | 0 | <=0 /lpf | [facility] | | | CASTS | | | LABORATORY | | | | | | SERVICES, | | | | | | CORE | | + +---------+ + + + | TRIPLE P04 | None | None /hpf | [facility] | | | CRYSTALS | | | LABORATORY | | | | | | SERVICES, | | | | | | CORE | | + +---------+ + + + | CALCIUM | None | None /hpf | [facility] | | | OXALATE | | | LABORATORY | | | ITA | | | SERVICES, | | | | | | CORE | | + +---------+ + + + | URIC ACID | None | None /hpf | [facility] | | | CRYSTALS | | | LABORATORY | | | | | | SERVICES, | | | | | | CORE | | + +---------+ + + + | AMORPHOUS | None [...] | + + + + + | [facility] | [address] | [place] [address] | | | SERVICES, CORE | [address] | | | + + + + + URINE SCREEN FOR CULTURE (02/07/2015 4:00 PM PST) + + + + + + | Component | Value | Ref Range | Performed | Pathologist | | | | | At | Signature | + + + + + + | URINE | Negative | Negative | [facility] | | | SCREEN FOR | | | LABORATORY | | | CULTURE | | | SERVICES, | | | | | | CORE | | + + + + + + + + | Specimen | + + | Urine - Urine | | (substance) | + + + + + | Narrative | Performed At | + + + | Culture Screen Negative. Culture not indicated. | [facility] | | | LABORATORY | | | SERVICES, CORE | + + + + + + + + | Performing | Address | City/State/Zipcode | Phone Number | | Organization | | | | + + + + + | [facility] | [address] | [place] [address] | | | SERVICES, CORE | [address] | | | + + + + + CULTURE, URINE [facility] (02/07/2015 12:15 PM PST) + + + + + + | Component | Value | Ref Range | Performed | Pathologist | | | | | At | Signature | + + + + + + | URINE | No growth (<1000 cfu/mL) | | [facility] | | | CULTURE | after 48 hours | | LABORATORY | | | [facility] | | | SERVICES, | | | | | | CORE | | + + + + + + + + | Specimen | + + | Urine - Catheter, | | device (physical | | object) | + + + + + + + | Performing | Address | City/State/Zipcode | Phone Number | | Organization | | | | + + + + + | [facility] | [address] | [place] [address] | | | SERVICES, CORE | [address] | | | + + + + + CBC (HEMOGRAM) ONLY (02/07/2015 9:36 AM PST) + + + + + + | Component | Value | Ref Range | Performed | Pathologist | | | | | At | Signature | + + + + + + | WHITE CELL | 13.12 (H) | 4.40 - 11.00 | [facility] | | | COUNT | | K/cu mm | LABORATORY | | | | | | SERVICES, | | | | | | CORE | | + + + + + + | RED CELL | 4.83 | 4.00 - 5.20 | [facility] | [...] + + + + | HEMATOCRIT | 45.8 | 36.0 - 46.0 % | [facility] | | | | | | LABORATORY | | | | | | SERVICES, | | | | | | CORE | | + + + + + + | MCV | 94.8 | 80.0 - 96.0 fL | [facility] | | | | | | LABORATORY | | | | | | SERVICES, | | | | | | CORE | | + + + + + + | MCHC | 33.0 | 33.0 - 35.5 | [facility] | [...] + + + + | PLATELET | 302 | 150 - 400 K/cu | [facility] | | | COUNT | | mm | LABORATORY | | | | | | SERVICES, | | | | | | CORE | | + + + + + + | MPV | 9.9 | 9.7 - 12.3 fL | [facility] [...] [facility] | [address] | [place] [address] | | | SERVICES, CORE | [address] | | | + + + + + ANTIBODY SCREEN (02/07/2015 9:36 AM PST) + + + + + [...] | + + + + + | [facility] | [address] | [place] [address] | | | SERVICES, | [address] | | | | TRANSFUSION MEDICINE | | | | + + + + + ABO & RH TYPE (02/07/2015 9:36 AM PST) + + + + + [...] [facility] | [address] | [place] [address] | | | SERVICES, | [address] | | | | TRANSFUSION MEDICINE | | | | + + + + + COAGULOPATHY PANEL (INR,APTT,FIBRINOGEN) (02/07/2015 9:36 AM PST) + +-------+ + + + [...] | | + +-------+ + + + | APTT | 29.9 | 26.0 - 36.0 | [facility] | | | | | seconds | LABORATORY | | | | | | SERVICES, | | | | | | CORE | | + +-------+ + + + | FIBRINOGEN | 429 | 200 - 450 mg/dL | [facility] [...] | + + + + + | [facility] | [address] | [place] [address] | | | [place], [facility] | [address] | | | + + + + + CARDIOLOGY (02/07/2015 12:00 AM PST) + + + | [...] | acetaminophen (TYLENOL) tablet | Given | 02/08/20 | 650 mg | | | | 650 mg 650 mg, oral, EVERY 4 | | 15 9:13 | | | | | HOURS NEEDED, Starting Tue | | PM PST | | | | | 02/07/15 at 2020, Until Wed | | | | | | | 02/08/15 at 1555, mild pain, | | | | | | | headache, fever | | | | | | + +--------+ +--------+------+------+ +---+---+ | | | +---+---+ + +---------+ +-----+---+---+ | ceFAZolin (ANCEF) 2 g in NaCl | New Bag | 02/09/20 | 2 g | | | | 0.9 % IV 2 g, intravenous, EVERY | | 15 4:06 | | | | | 8 HOURS, 3 doses, First dose on | | AM PST | | | | | 02/07/15 at 2000, Last dose | | | | | | | on 02/08/15 at 1200 | | | | | | + +---------+ +-----+---+---+ +---------+ +-----+---+---+ | New Bag | 02/08/20 | 2 g | | | | | 15 8:11 | | | | | | PM PST | | | | +---------+ +-----+---+---+ +---+---+ | | | +---+---+ + +---------+ +--------+---+---+ | fentaNYL citrate (PF) | New Bag | 02/08/20 | 25 mcg | | | | (SUBLIMAZE) injection 25 mcg 25 | | 15 1:52 | | | | | mcg, intravenous, POSTPROCEDURE | | PM PST | | | | | PRN, 8 doses, Starting Tue | | | | | | | 02/07/15 at 1131, Until Tue | | | | | | | 02/07/15 at 1400, severe pain | | | | | | + +---------+ +--------+---+---+ + +---+ | | | + +---+ | fentaNYL citrate (PF) | | | (SUBLIMAZE) injection 1 dose, | | | Starting Fri02/07/15 at 1350, | | | Until Fri02/07/15 at 1352 | | + +---+ | | | + +---+ + +-------+ +--------+---+---+ | lamoTRIgine (LAMICTAL) tablet | Given | 02/09/20 | 100 mg | | | | 100 mg 100 mg, oral, TWICE | | 15 8:50 | | | | | DAILY, First dose on Fri02/07/15 | | AM PST | | | | | at 2100, Until Discontinued | | | | | | + +-------+ +--------+---+---+ +-------+ +--------+---+---+ | Given | 02/08/20 | 100 mg | | | | | 15 9:13 | | | | | | PM PST | | | | +-------+ +--------+---+---+ +---+---+ | | | +---+---+ + +---------+ + + +---+ | NaCl 0.9%-KCl 20 mEq/L IV | New Bag | 02/09/20 | 1,000 mL | 75 mL/hr | | | infusion intravenous, | | 15 5:41 | | | | | CONTINUOUS, Starting 02/07/15 | | AM PST | | | | | at 1345, Until 02/08/15 at | | | | | | | 1555, at 0-75 mL/hr | | | | | | + +---------+ + + +---+ +---------+ +---+ +---+ | New Bag | 02/08/20 | | 75 mL/hr | | | | 15 2:00 | | | | | | PM PST | | | | +---------+ +---+ +---+ +---+---+ | | | +---+---+ + +---------+ +------+---+---+ | ondansetron (ZOFRAN) injection | New Bag | 02/09/20 | 4 mg | | | | 4 mg 4 mg, intravenous, EVERY 8 | | 15 7:44 | | | | | HOURS, 3 doses, First dose on Fri | | AM PST | | | | | 02/07/15 at 1500, Last dose on | | | | | | | 02/08/15 at 0700 | | | | | | + +---------+ +------+---+---+ +---------+ +------+---+---+ | New Bag | 02/09/20 | 4 mg | | | | | 15 12:13 | | | | | | AM PST | | | | +---------+ +------+---+---+ | New Bag | 02/08/20 | 4 mg | | | | | 15 4:00 | | | | | | PM PST | | | | +---------+ +------+---+---+ +---+---+ | | | +---+---+ + +-------+ + +---+---+ | senna-docusate (SENOKOT S) | Given | 02/08/20 | 1 tablet | | | | 8.6-50 mg 1 tablet 1 tablet, | | 15 9:13 | | | | | oral, TWICE DAILY, First dose on | | PM PST | | | | | [place] 02/07/15 at 1430, Until | | | | | | | Discontinued | | | | | | + +-------+ + +---+---+ +---+---+ | | | +---+---+ documented in this encounter
--- OUTSIDE RECORDS SUMMARY | ~2019-10-25 | XMS | Encounter Summary ---
Demographics + + + | Address | [address] | | | [place] [address] | + + + | Home Phone | | + + + | Preferred Language | Unknown | + + + | Marital Status | Single | + + + | Latter Day Affiliation | NRP | + + + [...] [place] | | | | | [address] | | + + + + + | Scott Nicole | ECON | Unknown | | + + + + + Care Team Providers + +------+ + | Care Handkerchief Sample Clerk Name | Role | Phone | + +------+ + | Patricia Bowers | PCP | | + +------+ + Reason for Visit + + + | Reason | Comments | + + + | Radiographic imaging | | | procedure | | + + + Encounter Details +--------+ + + + + | Date | Type | Department | Care Team | Description | +--------+ + + + + | 01/20/ | Telephone | Neurosurgery [address] | Nolvia Delgado, | Radiographic imaging | | 2011 | | [address] | [address] | procedure | | | | Physician's | [place], [place] | | | | | [address], [address]nd floor | [address] | | | | | [place], [place] | [phone] | | | | | [address] | | | | | | [phone] | | | +--------+ + + + [...] | | 2020 | Visit | | [address] | | | | | | [facility] [place] | | | | | | [address] | | | | | | [phone] | | | | | | | | +--------+---------+ + + + documented as of this encounter Visit Diagnoses Not on filedocumented in this encounter"
--- OUTSIDE RECORDS SUMMARY | ~2019-10-25 | XMS | Encounter Summary ---
Demographics + + + | Address | [address] | | | [place] [address] | + + + | Home Phone | | + + + | Preferred Language | Unknown | + + + | Marital Status | Single | + + + | Amish Affiliation | NRP | + + + | Race | White | + + + | Ethnic Group | Not or | + + + Author + + + | Author | [facility] | + + + | Organization | [facility] | + + + | Address | Unknown | + + + | Phone | Unavailable | + + + Support + + + + + | Name | Relationship | Address | Phone | + + + + + | Malina Nicole | ECON | [phone] | | | | | [place] | | | | | [address] | | + + + + + | Scott Mcgarry ECON | Unknown | | + + + + + Care Team Providers + +------+ + | Care Marksmanship Instructor Name | Role | Phone | + +------+ + | Patricia Stevens | PCP | | + +------+ + Encounter Details +--------+ + + + + | Date | Type | Department | Care Team | Description | +--------+ + + + + | 08/24/ | Frame Operator | Neurosurgery at | Chang, | Bethanie | | 2013 | | [facility] [address] | REENA Hunter | (Primary Dx); Preop | | | [facility] | [address] | examination | | | | [facility], | [place], [place] | | | | | Building | [address] | | | | | floor [place], [place] | [phone] | | | | | [address] | | | | | | [phone] | | | +--------+ + + + [...] | | 2019 | Visit | | [address] | | | | | | [place], [place] | | | | | | [address] | | | | | | [phone] | | | | | | | | +--------+---------+ + + + + +------+--------+ + + | Name | Type | Priori | Associated Diagnoses | Order Schedule | | | | ty | | | + +------+--------+ + + | 12 LEAD ECG | ECG | Routin | Hydrocephalus | Ordered: 08/24/2013 | | | | e | Preop examination | | + +------+--------+ + + documented as of this encounter Visit Diagnoses + + | Diagnosis | + + | Hydrocephalus (HCC) - Primary Obstructive hydrocephalus | + + | Preop examination Preoperative examination, unspecified | + + documented in this encounter"
--- OUTSIDE RECORDS SUMMARY | ~2019-10-25 | XMS | Encounter Summary ---
Demographics + + + | Address | [address] | | | [place] [address] | + + + | Home Phone | | + + + | Preferred Language | Unknown | + + + | Marital Status | Single | + + + | Samaritan Affiliation | NRP | + + + [...] [place] | | | | | [address] | | + + + + + | Scott Mcgarry ECON | Unknown | | + + + + + Care Team Providers + +------+ + | Care Test Bore Helper Name | Role | Phone | [...] + + + + | 09/14/ | Anesthesia | 6A Intra Op [id number] | Tate Cornelius, | | | 2013 | Event | [address] | [address] | | | | | [facility] | [address] | | | | | Hospital Admitting | [place], [place] | | | | | Desk Located on the | [address] | | | | | 9th floor | [phone] | | | | | [place], [place] | | | | | | [address] | Floyd Richards MD | | +--------+ + + + + Anesthesia Record + + + + + | Procedure Name | Responsible | Anesthesia Start | Anesthesia Stop Time | | | Anesthesiologist | Time | | + + + + + | REDO ANTERIOR | Tate Cornelius MD | 09/14/13 1909 | 09/14/13 2100 | | ENDOSCOPIC THIRD | | | | | VENTRICULOSTOMY, | | | | | (Left Head) | | | | + + + + + +----+---+ + + | Da | T | Event | Comment | | te | i | | | | | m | | | | | e | | | +----+---+ + + | 07 | 1 | Eq Check | Anesthesia machine checked Equipment verified | | /0 | 8 | | | | 1/ | 4 | | | | 20 | 0 | | | | 14 | | | | +----+---+ + + | | 1 | Pt. Check | Prior to anesthesia start, pt. Identified, examined, chart | | | 8 | | reviewed, PARQ held, anesthetic plan made or approved by | | | 4 | | attending anesthesiologist. NPO status confirmed as appropriate | | | 0 | | for procedure Preoperative evaluation: unchanged | +----+---+ + + | | 1 | An Start | | | | 9 | | | | | 0 | | | | | 9 | | | +----+---+ + + | | 1 | An Start | | | | 9 | Data | | | | 1 | | | | | 3 | | | +----+---+ + + | | 1 | Vitals | Monitors applied Vital signs checked Patient ready for anesthesia | | | 9 | Checked | | | | 2 | | | | | 0 | | | +----+---+ + + | | 1 | Std. Airway | | | | 9 | Mgt. | | | | 2 | | | | | 1 | | | +----+---+ + + | | 1 | Ready | | | | 9 | | | | | 2 | | | | | 7 | | | +----+---+ + + | | 1 | Abx | | | | 9 | Administere | | | | 3 | d | | | | 1 | | | +----+---+ + + | | 1 | Incision | | | | 9 | | | | | 5 | | | | | 7 | | | +----+---+ + + | | 2 | Medication | Fentanyl 150mcg Hydromorphone 2mg | | | 0 | Handoff | | | | 1 | | | | | 8 | | | +----+---+ + + | | 2 | Surgery end | | | | 0 | | | | | 4 | | | | | 7 | | | +----+---+ + + | | 2 | An Extubate | Neuromuscular function Intact. Pharynx suctioned. Patient obeys | | | 0 | | commands. Adequate pulmonary mechanics. | | | 5 | | | | | 0 | | | +----+---+ + + | | 2 | an stop | | | | 0 | data | | | | 5 | | | | | 2 | | | +----+---+ + + | | 2 | Anesthesia | | | | 1 | End | | | | 0 | | | | | 0 | | | +----+---+ + + +------+ | Meds | +------+ + + + | Name | Total | + + + | midazolam | 2 mg | + + + | fentaNYL | 350 mcg | + + + | propofol | 150 mg | + + + | rocuronium | 60 mg | + + + | ceFAZolin (ANCEF) injection 1 g | 2 g | + + + | dexamethasone | 4 mg | + + + | esmolol | 40 mg | + + + | ondansetron | 4 mg | + + + | glycopyrrolate | 0.4 mg | + + + | neostigmine | 2.5 mg | + + + | NaCl 0.9 % IV | 1,000 mL | + + + + + | Name | + + | O2 FR Avance (Total Liters) | + + | Air FR Avance (l/min) | + + | Insp Vic | + + | Et Vic | + + | Insp Sevo | [...] | | +--------+ + + + | RETIRE | 09/14/13; No; Left:; head; | 09/14/13 0000 by | 09/15/13 1415 by | | D - | 09/15/13; 1415 | Andi Cuevas RN | Malou Ch RN | | Incisi | | | | | on | | | | +--------+ + + + | RETIRE | 09/14/13; 1310; 09/15/13; 1415; | 09/14/13 1310 by | 09/15/13 1415 by | | D - | No; 20g R Wrist; 20; Right; | Eun rGubbs RN | Malou Ch RN | | Periph | Wrist; None; Positive; Therapy | | | | eral | completed | | | | Line | | | | +--------+ + + + documented [...] [place] | | | | | | [place], [place] | | | | | | [address] | | | | | | [phone] | | | | | | | [...] (ANCEF) injection 1 g | Given | 09/15/19 | 2 g | | | | 1 g, intravenous, PREPROCEDURE | | 14 7:31 | | | | | ONCE, 1 dose, Starting Fri09/14/13 | | PM PDT | | | | | at 1251, Until Fri09/14/13 at | | | | | | | 1931 | | | | | | + +--------+ +------+------+------+ +---+---+ | | | +---+---+ + +-------+ +------+---+---+ | dexamethasone (DECADRON) | Given | 09/15/19 | 4 mg | | | | injection INTRAPROCEDURE PRN, | | 14 7:31 | | | | | Starting Fri09/14/13 at 1931, | | PM PDT | | | | | Until Fri09/14/13 at 2052 | | | | | | + +-------+ +------+---+---+ +---+---+ | | | +---+---+ + +-------+ +-------+---+---+ | esmolol (BREVIBLOC) injection | Given | 09/15/19 | 20 mg | | | | intravenous, INTRAPROCEDURE PRN, | | 14 8:22 | | | | | Starting Fri09/14/13 at 2008, | | PM PDT | | | | | Until Fri09/14/13 at 2051 | | | | | | + +-------+ +-------+---+---+ +-------+ +-------+---+---+ | Given | 09/15/19 | 20 mg | | | | | 14 8:09 | | | | | | PM PDT | | | | +-------+ +-------+---+---+ +---+---+ | | | +---+---+ + +-------+ +--------+---+---+ | fentaNYL citrate (PF) | Given | 09/15/19 | 50 mcg | | | | (SUBLIMAZE) injection | | 14 8:02 | | | | | INTRAPROCEDURE PRN, Starting Fri | | PM PDT | | | | | 09/14/13 at 1921, Until Fri09/14/13 | | | | | | | at 2051, sedation | | | | | | + +-------+ +--------+---+---+ +-------+ +--------+---+---+ | Given | 09/15/19 | 50 mcg | | | | | 14 7:57 | | | | | | PM PDT | | | | +-------+ +--------+---+---+ | Given | 09/15/19 | 50 mcg | | | | | 14 7:45 | | | | | | PM PDT | | | | +-------+ +--------+---+---+ +---+---+ | | | +---+---+ + +-------+ +--------+---+---+ | glycopyrrolate (JR) | Given | 09/15/19 | 0.4 mg | | | | injection INTRAPROCEDURE PRN, | | 14 8:41 | | | | | Starting Tu09/14/13 at 2041, | | PM PDT | | | | | Until Fri09/15/13 at 010 | | | | | | + +-------+ +--------+---+---+ +---+---+ | | | +---+---+ + +-------+ +------+---+---+ | midazolam (VERSED) injection | Given | 09/15/19 | 2 mg | | | | INTRAPROCEDURE PRN, Starting Tu | | 14 7:09 | | | | | 09/14/13 at 1909, Until Fri09/14/13 | | PM PDT | | | | | at 2052, sedation | | | | | | + +-------+ +------+---+---+ +---+---+ | | | +---+---+ + + + +---+---+---+ | NaCl 0.9 % IV 10 mL/hr, | given by | 09/15/19 | | | | | intravenous, PROCEDURE | | 14 8:50 | | | | | CONTINUOUS, Starting Fri09/14/13 | anesthes | PM PDT | | | | | at 1300, Until Fri09/14/13 at 2141 | iology | | | | | + + + +---+---+---+ + + +---+---+---+ | given by anesthesiology | 09/15/19 | | | | | | 14 8:25 | | | | | | PM PDT | | | | + + +---+---+---+ | New Bag | 09/15/19 | | | | | | 14 6:59 | | | | | | PM PDT | | | | + + +---+---+---+ +---+---+ | | | +---+---+ + +-------+ +--------+---+---+ | neostigmine (PROSTIGMIN) | Given | 09/15/19 | 2.5 mg | | | | injection intravenous, | | 14 8:41 | | | | | INTRAPROCEDURE PRN, Starting Tue | | PM PDT | | | | | 09/14/13 at 2041, Until Fri09/15/13 | | | | | | | at 0100 | | | | | | + +-------+ +--------+---+---+ +---+---+ | | | +---+---+ + +-------+ +------+---+---+ | ondansetron (ZOFRAN) injection | Given | 09/15/19 | 4 mg | | | | INTRAPROCEDURE PRN, Starting Tu | | 14 8:34 | | | | | 09/14/13 at 2033, Until Fri09/14/13 | | PM PDT | | | | | at 2051 | | | | | | + +-------+ +------+---+---+ +---+---+ | | | +---+---+ + +-------+ +--------+---+---+ | propofol INTRAPROCEDURE PRN, | Given | 09/15/19 | 150 mg | | | | Starting 09/14/13 at 1921, | | 14 7:21 | | | | | Until Fri09/14/13 at 2051 | | PM PDT | | | | + +-------+ +--------+---+---+ +---+---+ | | | +---+---+ + +-------+ +-------+---+---+ | rocuronium (ZEMURON) injection | Given | 09/15/19 | 20 mg | | | | INTRAPROCEDURE PRN, Starting Tue | | 14 7:57 | | | | | 09/14/13 at 1921, Until 09/14/13 | | PM PDT | | | | | at 2051, Neuromuscular block | | | | | | + +-------+ +-------+---+---+ +-------+ +-------+---+---+ | Given | 09/15/19 | 40 mg | | | | | 14 7:21 | | | | | | PM PDT | | | | +-------+ +-------+---+---+ +---+---+ | | | +---+---+ documented in this encounter"
--- OUTSIDE RECORDS SUMMARY | ~2019-10-25 | XMS | Encounter Summary ---
Demographics + + + | Address | [address] | | | [place] [address] | + + + | Home Phone [...] Author | [facility] | + + + | Organization | [facility] | + + + | Address | Unknown | + + + | Phone | Unavailable | + + + Support + + + + + | Name | Relationship | Address | Phone | + + + + + | Malina Nicole | ECON | [phone] | | | | | [place] | | | | | [address] | | + + + + + | Scott Nicole | ECON | Unknown | | + + + + + Care Team Providers + +------+ + | Care Dress Marker Name | Role | Phone | + +------+ + | Gabe Baird DO | PCP | | + +------+ + Encounter Details +--------+ + + + + | Date | Type | Department | Care Team | Description | +--------+ + + + + | 04/23/ | Pharmacy | Outpatient Retail | | | | 2020 | Visit | [facility] | | | | | | [address] | | | | | | [address] [place], [place] | | | | | | [address] | | | | | | [phone] | | | +--------+ + + + [...] [place] | | | | | | [place], [place] | | | | | | [address] | | | | | | [phone] | | | | | | | | +--------+---------+ + + + documented as of this encounter Visit Diagnoses Not on filedocumented in this encounter"
--- OUTSIDE RECORDS SUMMARY | ~2019-10-25 | XMS | Encounter Summary ---
Demographics + + + | Address | [address] | | | [place] [address] | + + + | Home Phone [...] [place] | | | | | [address] | | + + + + + | Scott Mcgarry ECON | Unknown | | + + + + + Care Team Providers + +------+ + | Care Plumbing Inspector Name | Role | Phone | [...] | Encounter | [address] | [address] | | | | | [id number] [facility] | [place], [place] | | | 09/15/ | | [facility], | [address] | | | 2013 | | [place] [address] | [phone] | | | | | [phone] | | | +--------+ + + + [...] Nolvia Delgado MD PCP: REENA Patricia Service: [facility] Neurosurgery Diagnoses Principal Final Diagnosis: Hydrocephalus Additional [...] the patient was followed closely by the [facility] providers, resident providers, and medical/nursing staff. [...] 1:42 PM Discharging Attending: Nolvia Delgado MD [facility] [id number] [address] documented in this en counter Discharge Instructions Instructions Malou Ch RN - 09/15/2013Patient Education Materials: Craniotomy post-o p instructions, AVS Additional Instructions: none Discharge Nurse: MALOU CH Date: 09/15/2013 Discharge Time: 14:20 PM AttachmentsThe following attachments cannot be sent through Care Everywhere.CRANIOTOMY : PO ST-OP (KINYARWANDA)documented in this encounter Medications at Time of [...] - 09/15/2013 10:11 AM PDT 7NSICU ATTENDING INCENDIARIES SUPERVISOR DAILY PROGRESS NOTE Team Pager: [phone] Attendin Date:09/15/2013 Critical Care Attending Physician: UBALDO NEWMAN MD Referring [facility] Physician: Nolvia Delgado MD I saw [...] management of this patient . MD, PhD [facility] DEPARTMENT: [id number] ICU NEURO Place of Service:- Inpatient Date of Service: 09/15 CSN: [id number] Suggested Modifier: GC - Resident Involved Suggested CPT: TO DIAMOND ASSORTER RELEVANT DATA: Last Vitals: BP 137/75 | [...] mg 1 tablet, 1 tablet, oral, BID, Mehdrad Francis MD,PhD, 1 tablet at 09/15/13 0913 [...] Newman. Note Author: DAVINA PIZARRO MD Pager [phone] Davin Andrews MD, H - 09/14/2013 9:16 [...] [place] | | | | | | [place], [place] | | | | | | [address] | | | | | | [phone] | | | | | | | [...] | | 09/14/2013ttending Surgeon: Nolvia Delgado MD Pathology Laboratory Aide(s): Mehrdad | | MD Tito, PhD Preoperative [...] 09/14/2013 | | 20:56:59DT: 09/14/2013 21:33:07Job #: [id number] | + + CBC (HEMOGRAM) ONLY (09/15/2013 [...] | + + + + + | [facility] | [address] | [place] [address] | | | SERVICES, CORE | HAYDEE [...] | | | LABORATORY | | | DJIBOUTIAN | | | SERVICES, | | | [...] | + + + + + | [facility] | [address] | [place] [address] | | | SERVICES, CORE | HAYDEE [...] | + + + + + | [facility] | [address] | [place] [address] | | | SERVICES, | [address] [...] MIRIAM S[facility] | [address] | [place] [address] | | | JUANA, | HAYDEE MACHUCA [...]
--- OUTSIDE RECORDS SUMMARY | ~2019-10-25 | XMS | Encounter Summary ---
Demographics + + + | Address | [address] | | | [place] [address] | + + + | Home Phone | | + + + | Preferred Language | Unknown | + + + | Marital Status | Single | + + + | Caodaism Affiliation | NRP | + + + | Race | White | + + + | Ethnic Group | Not or | + + + Author + + + | Author | [facility] | + + + | Organization | [facility] | + + + | Address | Unknown | + + + | Phone | Unavailable | + + + Support + + + + + | Name | Relationship | Address | Phone | + + + + + | Malina Nicole | ECON | [address] | | | | | [place] | | | | | [address] | | + + + + + | Scott Mcgarry ECON | Unknown | | + + + + + Care Team Providers + +------+ + | Care Gr[employer] Teacher Name | Role | Phone | + +------+ + | Patricia Stevens | PCP | | + +------+ + Reason for Visit + + + | Reason | Comments | + + + | Phone communication | | + + + Encounter Details +--------+ + + + + | Date | Type | Department | Care Team | Description | +--------+ + + + + | 01/18/ | Telephone | Neurosurgery at | Nolvia Delgado, | Phone communication | | 2014 | | [facility] [address] | MD [address] | | | | | [address] [facility] | [place], [place] | | | | | [facility] He[facility], | [address] | | | | | [facility] | [phone] | | | | | floor [place], [place] | | | | | | [address] | | | | | | [phone] | | | +--------+ + + + [...] [address] | | | | | | [place], [place] | | | | | | [address] | | | | | | [phone] | | | | | | | | +--------+---------+ + + + + +------+--------+ + + | Name | Type | Priori | Associated Diagnoses | Order Schedule | | | | ty | | | + +------+--------+ + + | 12 LEAD ECG | ECG | Routin | Preop examination | Ordered: 01/18/2015 | | | | e | Hydrocephalus | | + +------+--------+ + + documented as of this encounter Visit Diagnoses + + | Diagnosis | + + | Preop examination - Primary Preoperative examination, unspecified | + + | Hydrocephalus (HCC) Obstructive hydrocephalus | + + documented in this encounter"
--- OUTSIDE RECORDS SUMMARY | ~2019-10-25 | XMS | Encounter Summary ---
Demographics + + + | Address | [address] | | | [place] [address] | + + + | Home Phone | | + + + | Preferred Language | Unknown | + + + | Marital Status | Single | + + + | Mormonism Affiliation | NRP | + + + | Race | White | + + + | Ethnic Group | Not or | + + + Author + + + | Author | [facility] | + + + | Organization | [facility] | + + + | Address | Unknown | + + + | Phone | Unavailable | + + + Support + + + + + | Name | Relationship | Address | Phone | + + + + + | Malina Nicole | ECON | [address] | | | | | [place] | | | | | [phone] | | + + + + + | Scott Mcgarry ECON | Unknown | | + + + + + Care Team Providers + +------+ + | Care Material Coordinator Name | Role | Phone | + [...] Description | +--------+---------+ + + + | 03/20/ | Surgery | 6A Intra Op [id number] | Nolvia Delgado, | STEALTH-GUIDED | | 2012 | | [address] | [address] | ENDOSCOPIC THIRD | | | | [facility] [address] | [place], [place] | VENTRICULOSTOMY WITH | | | | Hospital Admitting | [address] | EXTERNAL | | | | Desk Located on the | [phone] | VENTRICULAR DRAIN | | | | 9th floor | | | | | | [facility] [place] | | | | | | [phone] | | | +--------+---------+ + + + [...] + + + | Blood Pressure | 142/76 | 03/24/2012 8:34 AM | | | | | PST | | + + + + + | Pulse | 94 | 03/24/2012 8:34 AM | | | | | PST | | + + + + + | Temperature | 36.8 C (98.2 F) | 03/24/2012 12:13 AM | | | | | PST | | + + + + + | Respiratory Rate | 16 | 03/24/2012 8:34 AM | | | | | PST | | + + + + + | Oxygen Saturation | 97% | 03/24/2012 8:34 AM | | | | | PST | | + + + + + | Inhaled Oxygen | - | - | | | Concentration | | | | + + + + + | Weight | 97.6 kg (215 lb 2.7 | 03/21/2012 5:00 AM | | | | oz) | PST | | + + + + + | Height | 175.3 cm (5' 9.02") | 03/20/2012 6:04 AM | | | | | PST | | + + + + + | Body Mass Index | 31.76 | 03/20/2012 6:04 AM | | | | | PST | | + + + + + documented in this encounter Discharge Instructions Instructions Jaimee Parker RN - 03/24/2012 Discharge Nurse: Jaimee Date: 03/24/2012 Discharge Time: 11:40 AM documented in this encounter Medications at [...] documented as of this encounter Progress Notes Lizbeth Oneal PA-C - 03/24/2012 11:20 AM PSTFormatting of this note might be different fr om the original. INPATIENT PHYSICIAN DISCHARGE SUMMARY Attending Physician: Nolvia Delgado MD PCP: REENA Ayala Admission Date: 03/20/2012 Discharge Date: 03/24/2012 Diagnoses Principal Final Diagnosis: Aqueductal stenosis with obstructive hydrocephalus. Procedures Procedures Performed: 1. Neuroendoscopy for third ventriculostomy. 2. Frameless stereotactic navigation. 3. Placement of left frontal external ventricular drain Reason For Admission: The above elective procedure Hospital Course: Rin Casas is a 41 y.o. female with a history of progressive right sided weakness and spasticity over the last several years, admitted to [facility] electively on 03/20/2012 for the proc edures described above. The attending providers, resident providers, and medical/nursing sta ff. Post operatively, the patient was admitted to the NSICU for close neurologic and hemodynami c monitoring. A head CT revealed expected post op changes. On 03/22/12 the external ventricula r drain was removed. When stable, the patient was transferred to the [facility] for ongoing conval escent care. The patient was had low sodium during routine labs on 03/23/12. The patient was p laced on a fluid restricted diet and salt tabs. Her sodium levels improved and she was asymp tomatic through out her stay on the hospital floor. Surgical pain was managed with medicatio n. The patient made appropriate gains toward activity and functional goals while an inpatien t. The patient worked with our rehabilitation team with recommendation for home with assista eden upon discharge. While on the hospital floor, the patient tolerated oral intake sufficient to maintain nutri tion and hydration. The surgical wound remained clean, dry, and intact without signs concern ing for infection. The patient was felt appropriate for discharge to home with assistance on 03/23/2012, and the patient and/or family members agree with this course of action. Current Discharge Medication List START taking these medications Details acetaminophen 650 mg Oral tablet Take 650 mg by mouth every four hours as needed. DO NOT ex ceed 3250 mg/day of acetaminophen from all products oxyCODONE, immediate release, 5 mg Oral tablet Take 1-3 Tabs by mouth every three hours as needed for severe pain. Qty: 60 Tab, Refills: 0 senna-docusate 8.6-50 mg Oral tablet Take 1 Tab by mouth two times daily. For constipation while taking pain medications Qty: 60 Tab, Refills: 2 sodium chloride 1 gram Oral tablet Take 1 Tab by mouth three times daily with meals. Qty: 90 Tab, Refills: 0 CONTINUE these medications which have NOT CHANGED Details lamoTRIgine 100 mg Oral tablet Take 100 mg by mouth two times daily. MULTIVITAMIN ORAL Take by mouth. VITAMIN B COMPLEX ORAL Take by mouth. Wound Care Keep incision sites clean and dry. Do not shower for 3 days after your procedure. Avoid imm ersing your incision (baths, hot tubs, saunas) for one month following your procedure. Diet Regular Regular diet- There are no restrictions to your diet. You may eat or drink whatever you pr efer, though healthy food choices are recommended. Activity Avoid heavy lifting, repetitive bending and all strenuous activity until further notice. No driving while taking oral narcotics/pain medications. Destination: Destination: Home Condition on Discharge Stable Follow Up Follow up at [facility], 8th Floor, [address], [place] [id number] with Dr. Delgado on 04/15/12 at 09:00am. Future Appointments Date & Time Provider Department Dept Phone Center 04/15/2012 9:00 AM Nolvia Delgado MD Neurosurgery [phone] Neurosurgery Warning Symptoms and Signs Please call the Neurosurgery clinic at [phone] with any questions Friday to Friday 8 A M - 4 PM. After hours, call [facility] at [phone] and ask to speak with the Neurosurgery resi dent therapeutic recreation assistant if you have any of the following: - Difficulty breathing or shortness of breath; - Excessive bleeding or drainage from incision sites; - Fevers, chills, sweats; - Persistent nausea or vomiting; - Change in mental status; Other Discharge Orders and Instructions Patient with low sodium levels: Continue salt tablets on discharge. Monitor for signs of de creasing sodium levels: Altered mental status, lethargy, muscle cramps, vomiting, and swelli ng of the extremities. Seek medical care if these symptoms present. Discharging Physician: LIZBETH ONEAL PA-C Attending Physician: Nolvia Delgado MD ates, Lizbeth Langston PA-C - 03/24/2012 9:10 AM PST NEUROSURGERY INPATIENT PROGRESS NOTE Hospital Day:4 Author; LIZBETH ONEAL PA-C Attending Physician: Nolvia Delgado MD Interval Hx: No events overnight Physical Exam: Last Vitals: BP 142/76 | Pulse 94 | Temp 36.8 C (98.2 F) | RR 16 | Ht 1.753 m (5' 9.02" ) | Wt 97.6 kg (215 lb 2.7 oz) | SpO2 97% | BMI 31.76 kg/(m^2) O2 Delivery Device: None (room air) (03/24/12 032) 24 Hour Vital Min/Max: Systolic (24hrs), Av mmHg, Min:119 mmHg, Max:149 mmHg Diastolic (24hrs), Av mmHg, Min:76 mmHg, Max:90 mmHg Pulse Min: 86 Max: 124 Temp Min: 36.4 C (97.5 F) Max: 36.8 C (98.2 F) Resp Min: 14 Max: 22 SpO2 Min: 96 % Max: 100 % Intake/Output Summary (Last 24 hours) at 03/24/12 0910 Last data filed at 03/24/12 0557 Gross per 24 hour Intake 1430 ml Output 1800 ml Net -370 ml Labs Chemistries: Last 72 Hours (or 3 results): Recent Labs Basename 03/24/12 0316 03/23/12204203/23/12 1530 03/23/12 0804 03/22/12 0249 NA 130* 129* 126* -- -- K 4.0 3.7 3.8 -- -- CL 96* 95* 92* -- -- BICARB 24 25 26 -- -- BUN 7 9 8 -- -- CR 0.64 0.65 0.62 -- -- GLU 90 108* 133* -- -- CA 8.6 8.6 8.8 -- -- MG -- -- -- -- 1.6* PO4 -- -- -- 2.1* 1.2* CBC with diff last 72 hours (or 3 results) Recent Labs Basename 03/24/12 0322 03/23/12 0804 03/22/12 0249 WBC 13.2* 14.2* 15.0* HB 13.1 13.7 12.7 HCT 39.2 40.5 36.8 PLT 256 253 248 NEUTROPERC -- -- -- BANDPCT -- -- -- LYMPHPERC -- -- -- MONOPERC -- -- -- BASOPERC -- -- -- EOSPERC -- -- -- Specific gravities within normal limits Urine osmolality within normal limits Physical Exam: General: 41 year old female in NAD CV: RRR no MGRs Pulm: CTA Neuro: Alert and oriented x 3, PERRL, EOMI, face symmetric, tongue midline Motor: 5/5 in LUE and LLE, 4+/5 in RUE and RLE SILT in BUE and BLE Psychiatric: Appropriate and cooperative Assessment: 41 y.o. 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 EVD removed 03/22/12. Patient with improving hyponatremia toda y. Plan: Neuro: Stable Hyponatremia: BMP and specific gravity Q6hr, Salt tabs TID, restricted free water to 1.5L. GI: oral diet; anti-emetics prn; GI ppx Endocrine: No active issues. No need for ISS presently. Musculoskeletal / Skin: Routine decubitus ulcer prevention. Rehab: PT/OT DVT prophylaxis: mobilize out of bed; SCDs Disposition: Pending clinical course tentative discharge home with family assistance today 03/24/12 LIZBETH ONEAL PA-C [facility] [address] [facility] [address] [place]. [phone] MEDICATIONS Current Facility-Administered Medications Medication acetaminophen (aka TYLENOL) tablet 650 mg calcium carbonate chewable (aka TUMS) tablet 200 mg elemental lamoTRIgine (aka LAMICTAL) tablet 100 mg metoclopramide HCl (aka REGLAN) injection 5-10 mg morphine injection 1-4 mg NaCl 0.9%-KCl 20 mEq/L IV infusion ondansetron (aka ZOFRAN) injection 4 mg oxyCODONE (immediate release) (aka ROXICODONE) tablet 5-15 mg polyethylene glycol (aka MIRALAX) powder 17 g senna-docusate (aka SENOKOT S) 8.6-50 mg 1 Tab sodium chloride tablet 3 g Lizbeth Drew PA-C - 03/23/2012 8:32 AM PST NEUROSURGERY INPATIENT PROGRESS NOTE Hospital Day:3 Author; LIZBETH ONEAL PA-C Attending Physician: Nolvia Delgado MD Interval Hx: No events overnight Physical Exam: Last Vitals: BP 120/76 | Pulse 92 | Temp 36.2 C (97.2 F) | RR 16 | Ht 1.753 m (5' 9.02" ) | Wt 97.6 kg (215 lb 2.7 oz) | SpO2 95% | BMI 31.76 kg/(m^2) O2 Delivery Device: None (room air) (03/23/12 0522) 24 Hour Vital Min/Max: Systolic (24hrs), Av mmHg, Min:117 mmHg, Max:153 mmHg Diastolic (24hrs), Av mmHg, Min:69 mmHg, Max:97 mmHg Pulse Min: 79 Max: 114 Temp Min: 36.2 C (97.2 F) Max: 37 C (98.6 F) Resp Min: 16 Max: 27 SpO2 Min: 93 % Max: 98 % Intake/Output Summary (Last 24 hours) at 03/23/12 0832 Last data filed at 03/23/12 0700 Gross per 24 hour Intake 1410 ml Output 3100 ml Net -1690 ml Labs CBC with diff last 72 hours (or 3 results) Recent Labs Basename 03/23/12 0804 03/22/12 0249 03/21/12 0157 WBC 14.2* 15.0* 17.3* HB 13.7 12.7 12.8 HCT 40.5 36.8 37.9 PLT 253 248 248 NEUTROPERC -- -- -- BANDPCT -- -- -- LYMPHPERC -- -- -- MONOPERC -- -- -- BASOPERC -- -- -- EOSPERC -- -- -- Chemistries: Last 72 Hours (or 3 results): Recent Labs Basename 03/23/12 1019 03/23/12 0804 03/23/12 0803 03/22/12 0249 03/21/12 0157 NA 128* 126* -- 133* -- K 3.8 5.0 -- 3.7 -- CL 98 97 -- 102 -- BICARB 20* 19* -- 20* -- BUN 7 7 -- 6 -- CR 0.71 0.60 -- 0.51* -- GLU 110* 80 95 -- -- CA 8.9 8.4* -- 7.8* -- MG -- -- -- 1.6* 1.9 PO4 -- 2.1* -- 1.2* 1.6* Physical Exam: General: 41 year old female in NAD CV: RRR no MGRs Pulm: CTA Neuro: Alert and oriented x 3, PERRL, EOMI, face symmetric, tongue midline Motor: 5/5 in LUE and LLE, 4+/5 in RUE and RLE SILT in BUE and BLE Psychiatric: Appropriate and cooperative Assessment: 41 y.o. 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 EVD removed 03/22/12. Patient with declining hyponatremia toda y. Plan: Neuro: Stable Hyponatremia: BMP and specific gravity Q6hr, Salt tabs TID, restricted free water to 2L. Ur ine osmolality and urine sodium today. GI: oral diet; anti-emetics prn; GI ppx Endocrine: No active issues. No need for ISS presently. Musculoskeletal / Skin: Routine decubitus ulcer prevention. Rehab: PT/OT DVT prophylaxis: mobilize out of bed; SCDs Disposition: Pending clinical course tentative discharge home with family assistance tomorr ow 03/24/12 LIZBETH ONEAL PA-C [facility] [address] [address] [id number] [place]g. [phone] MEDICATIONS Current Facility-Administered Medications Medication acetaminophen (aka TYLENOL) tablet 650 mg lamoTRIgine (aka LAMICTAL) tablet 100 mg metoclopramide HCl (aka REGLAN) injection 5-10 mg morphine injection 1-4 mg NaCl 0.9%-KCl 20 mEq/L IV infusion ondansetron (aka ZOFRAN) injection 4 mg oxyCODONE (immediate release) (aka ROXICODONE) tablet 5-15 mg polyethylene glycol (aka MIRALAX) powder 17 g senna-docusate (aka SENOKOT S) 8.6-50 mg 1 Tab Rocky Perez MD - 03/22/2012 2:25 PM PSTI saw and evaluated the patient at the bedside together with Ed Worr luis (REENA). Please see his note for details of the encounter. I reviewed the all data and the recent imaging available. I have discussed findings and plan of care with the primary team and the consultants involv ed. Rocky Salazar MD horr Kahlil smith PA - 03/22/2012 12:44 PM PST [facility] Neuro[facility] ICU Progress Note Team Pager: [phone] Attendin Patient name: Rin Casas Author: REENA BASS Date of Service: 03/22/2012 Intensive Care Attending: Rocky Salazar MD Attending Provider: Nolvia Delgado MD ICU day # 3 POD # 2 ID: 41 y.o. Female with a h/o congenital hydrocephalus, cerebral palsy and seizures admi tted 03/20/2012 following 3rd ventriculostomy and EVD placement for management of severe hydro cephalus. 24 HOUR EVENTS: -EVD clamped ON, removed this am -transfer to acute care Imaging: None new PE: Neurological: awake, oriented x3, conversant, follows commands, PERRL, EOMI, tongue ML, fa ce symmetric, shrugs shoulders, QUINTANILLA though 4/5 on right, no drift, FTN intact Cardiovascular: Rhythm: normal sinus rhythm Cuff Pressures: Systolic (24hrs), Av mmHg, Min:117 mmHg, Max:178 mmHg Diastolic (24hrs), Av mmHg, Min:69 mmHg, Max:150 mmHg Respiratory: Breath sounds: clear bilaterally Resp Av Min: 17 Max: 30 SpO2 Av.3 % Min: 94 % Max: 99 % GI: Abdomen, soft, non tender and not distended Last BM: 09-19-12 Nutrition:Regular/thin Ulcer Prophylaxis: not clinically indicated / Renal: Benites catheter: No Input/Output Summary: Intake/Output Summary (Last 24 hours) at 03/22/12 1244 Last data filed at 03/22/12 0900 Gross per 24 hour Intake 1460 ml Output 2025 ml Net -565 ml Intake/Output Summary (since admission) at 03/20/12 0522 Last data filed at 03/22/12 0900 Gross for the last 2 days Intake 7044.6 ml Output 3882 ml Net since Admission 3162.6 ml IV Fluids: CPIV's Recent Labs Basename 03/22/12 02403/21/12 01503/20/12 1053 NA 133* 135* 143 K 3.7 3.8 3.9 CL 102 107 111* BICARB 20* 20* 21 BUN 6 8 8 CR 0.51* 0.59* 0.76 CA 7.8* 8.3* 8.1* MG 1.6* 1.9 -- PO4 1.2* 1.6* -- HEME/ID: TM: Temp (24hrs), Av.2 C (98.9 F), Min:36.8 C (98.2 F), Max:37.6 C (99.7 F) Antibiotics: none Thromboprophylaxis: SCDs Head of Bead: >30 degrees Recent Labs Basename 03/22/12 02403/21/1215603/20/12 1053 WBC 15.0* 17.3* 10.6 HB 12.7 12.8 13.8 HCT 36.8 37.9 41.1 PLT 248 248 231 NEUTROPERC -- -- -- BANDPCT -- -- -- LYMPHPERC -- -- -- MONOPERC -- -- -- BASOPERC -- -- -- EOSPERC -- -- -- No components found with this basename: INR:5,PT:5,PTT:5 No results found for this basename: culture No results found for this basename: urinele, urinenitrite, urineblood, urinespecgrav, urine ketones, urineglucose No results found for this basename: urinebacteri, urinewbc, urineyeast Infection Control: PIV's Endocrine: Lab Results Component Value Date GLU 115* 03/22/2012 GLU 131* 03/21/2012 GLU 108* 03/21/2012 GLU 109* 03/20/2012 Last Glycemic Control: not indicated Insulin: 0 units per SSI for the last 24 hours. Musculoskeletal/Skin: Extremities: are warm and well perfused Skin: no rashes or significant breakdown Current Medications: Current Inpatient Medications Medication Dose Route Frequency acetaminophen (aka TYLENOL) tablet 650 mg 650 mg Oral Q4H PRN lamoTRIgine (aka LAMICTAL) tablet 100 mg 100 mg Oral BID metoclopramide HCl (aka REGLAN) injection 5-10 mg 5-10 mg Intravenous Q4H PRN morphine injection 1-4 mg 1-4 mg Intravenous Q2H PRN NaCl 0.9%-KCl 20 mEq/L IV infusion Intravenous CONTINUOUS ondansetron (aka ZOFRAN) injection 4 mg 4 mg Intravenous Q8H PRN ondansetron (aka ZOFRAN) injection 4 mg 4 mg Intravenous Q12H PRN oxyCODONE (immediate release) (aka ROXICODONE) tablet 5-15 mg 5-15 mg Oral Q3H PRN polyethylene glycol (aka MIRALAX) powder 17 g 17 g Oral DAILY PRN senna-docusate (aka SENOKOT S) 8.6-50 mg 1 Tab 1 Tab Oral BID Assessment and Plan: NEURO Hydrocephalus S/p neurosurgical procedure Neuro checks q4 hourly Pain control with POs EVD removed CV HDS No acute issues SBP goal <160 PULMO No acute issues pulm toilet, IS, OOB RENAL Preserved renal function Trend creat Avoid dehydration I/O goal euvolemia Fluids/ Electrolytes Hypomagnesemia Follow and replete electrolytes PRN GI no acute issue ADAT HEM/coagulation Acute postoperative blood loss anemia HCT stable Daily CBC ID Leukocytosis, reactive afebrile ENDO Euglycemia SSI PRN Goal glucose <180 Muskuloskeletal/ Skin PT/OT OTHER ICU Dispo SCDs for DVT prophy, n/a for GI prophy Transfer to acute care I spent 30 minutes actively, independently involved in the care and management of this pat ient who is not critically ill This patient has been staffed with Dr. Salazar, attending physician, who agrees with the abo ve assessment and plan. REENA BASS [facility] DEPARTMENT: [id number] ICU NEURO Place of Service:- Inpatient Date of Service: 03/22/2012 CSN: [id number] Suggested Modifier: None Suggested CPT: TO TOOL AND DIE MAKER LEVEL FIVE Estela Gaffney MD - 03/22/2012 5:22 AM PST NEUROSURGERY PROGRESS NOTE Author: ESTELA MAURICIO MD Attending Physician: Nolvia Delgado MD HPI/Interval Update: - Clamped EVD overnight (20 out prior to clamp). - Normal ICPs. - No headache this morning. - Oriented X 4. Physical Exam: BP 145/75 | Pulse 105 | Temp 37 C (98.6 F) | RR 30 | Ht 1.753 m (5' 9.02") | Wt 97.6 kg (215 lb 2.7 oz) | SpO2 97% | BMI 31.76 kg/(m^2) BP Min: 122/74 Max: 178/111 Temp Av.2 C (98.9 F) Min: 36.5 C (97.7 F) Max: 37.6 C (99.7 F) Pulse Av.6 Min: 84 Max: 126 Resp Av Min: 17 Max: 30 SpO2 Av.2 % Min: 93 % Max: 99 % Intake/Output Summary (Last 24 hours) at 03/22/12 0522 Last data filed at 03/22/12 0500 Gross per 24 hour Intake 2342.2 ml Output 1999 ml Net 343.2 ml Lab Results Component Value Date/Time NA 133* 03/22/2012 2:49 AM K 3.7 03/22/2012 2:49 AM CR 0.51* 03/22/2012 2:49 AM HCT 36.8 03/22/2012 2:49 AM WBC 15.0* 03/22/2012 2:49 AM PLT 248 03/22/2012 2:49 AM ALB 3.0* 03/22/2012 2:49 AM ] No results found for this basename: culture No results found for this basename: ph, pco2, po2, hco3, O2sat, FIO2 Exam: Awake, alert, oriented x4 Fluent speech, nervous affect Can count fingers accurately at 2 feet from face. PERRL B, EOMI, face symmetrical, tongue ML, V1-V3 intact. Motor: 5/5 LUE and LLE. 4+/5 RLE and RUE. Sensation intact to light touch in all ext LastICP Mean: 7 mmHg (03/22/12 0600) CPP (cerebral perfusion pressure): 88 mmHg (03/22/12 0500) 24 Hour ICP Mean Av.3 mmHg Min: 0 mmHg Min taken time: 03/21/12 1100 Max: 47 mmHg Max ta elvira time: 03/21/12 2300CPP (cerebral perfusion pressure) Av.4 mmHg Min: 58 mmHg Min taken time: 03/20/12 2200 Max: 104 mmHg Max taken time: 03/21/12 1900 Assessment and Plan: 41 y.o. female POD 2 from ETV with EVD placement for congenital HCP and aqueductal stenosis , at baseline exam. EVD has been clamped nearly 24 hours with no headache or signs if high ICPs. - PT/OT - mobilize - pain and nausea control - Will discuss with Dr. Delgado d/c EVD and transfer. Estela Mauricio MS, MD Neurological Surgery, PGY-4 [id number] Sujata Lakhani MD - 03/21/2012 9:48 PM PST [facility] Neuroscience ICU Attending Home Health Billing Specialist Note Rin Casas is a 41 y.o. female admitted 03/20/2012 5:22 AM.I have seen and evaluated Ca chary Casas with [facility], and reviewed the chart, lab and imaging results. I agree w ith the assessment and plan as detailed in the houseofficer note. 24 Hour Events: doing well, denies RAHMAN/N/V, no vision changes, EVD clamped at 9 am Current problems include: 3rd ventriculostomy and EVD placement 03/20/11 ; h/o mild congenita l hydrocephalus Plan: close neuro monitoring, watch for signs of elevated ICP, EVD per NSG team, ambulate Relevant Risks: This patient is currently at risk for the following: hydrocephalus, ICH and seizure; arrhythmia. I spent 20 minutes actively involved in the care and management of this patient. SUJATA SABA MD [facility] DEPARTMENT: [id number] ICU NEURO Place of Service:- Inpatient Date of Service: 03/21/2012 CSN: [id number] Suggested Modifier: GC - Resident Involved Suggested CPT: TO CODER P Rocky Doss MD - 03/21/2012 9:22 AM PST 7NSICU ATTENDING EVP [facility] [employer] [facility] [employer]ATE[facility] DAILY PROGRESS NOTE Team Pager: [phone] Attendin Date:03/21/2012 Critical Care Attending Physician: ROCKY SALAZAR MD Referring Attending P charly: Nolvia Delgado MD I saw and evaluated the patient at the bedside together with Justino Tong (DIET TECHNICIAN REGISTERED). Please see her note for details of the encounter. I reviewed the all data and the recent imaging available . I have discussed findings and plan of care with the primary team and the consultants involv ed. (Relevant data is listed at the bottom of this note) CC / Hx / Last 24hr: POD # 1: 3rd ventriculostomy and EVD placement ; h/o mild congenital h ydrocephalus with recent UE right hand motor weakness Current problems include: - EVD at 15 cm, put out 32mL (not draining well); clamp today and likely remove tomorrow. - Sz d/o: on home AED (Lamictal) Relevant Risks: This patient is currently at risk for the following: hydrocephalus; DVT/ Pulmonary embolism. I spent 20 minutes actively involved in the care and management of this patient. Rocky Salazar MD [facility] DEPARTMENT: [id number] ICU NEURO Place of Service:- Inpatient Date of Service: 03/21/2012 CSN: [id number] Suggested Modifier: None Suggested CPT: TO TOOL AND DIE MAKER LEVEL FIVE RELEVANT DATA: Last Vitals: BP 128/81 | Pulse 107 | Temp 37.1 C (98.8 F) | RR 19 | Ht 1.753 m (5' 9.02 ") | Wt 97.6 kg (215 lb 2.7 oz) | SpO2 93% | BMI 31.76 kg/(m^2) Intake/Output Summary (Last 24 hours) at 03/21/12 0923 Last data filed at 03/21/12 0900 Gross per 24 hour Intake 3327.2 ml Output 1180 ml Net 2147.2 ml Recent Labs Basename 03/21/12 0157 03/20/12 1053 NA 135* 143 K 3.8 3.9 CL 107 111* BICARB 20* 21 BUN 8 8 CR 0.59* 0.76 CA 8.3* 8.1* MG 1.9 -- PO4 1.6* -- ALB 3.2* -- Recent Labs Basename 03/21/12 0157 03/20/12 1053 WBC 17.3* 10.6 HB 12.8 13.8 HCT 37.9 41.1 PLT 248 231 NEUTROPERC -- -- BANDPCT -- -- LYMPHPERC -- -- MONOPERC -- -- BASOPERC -- -- EOSPERC -- -- Caesar Mosqueda, DIET TECHNICIAN REGISTERED - 03/21/2012 6:01 AM PST [facility] Progress Note Team Pager: [phone] Attendin Attending Home Health Billing Specialist: Primary Service Attending: MD Nolvia Manning MD HD # 2 POD# 1 Procedure: 3rd ventriculostomy, EVD placement ICU day # 2 HPI: Rin Casas is a 41 y.o. Female with a h/o congenital hydrocephalus, CP, seizures admitted 03/20/2012 to ICU s/p 3rd ventriculostomy and EVD placement for management of worse ivanna hydrocephalus characterized by decreased fine motor ability and weakness in RLE. Operat tonio course was uneventful, easy airway, EBL minimal. 24 Hour Events: No acute issues PONV resolved EVD at 15 Output 32 mL ICP 1-13 Assessment and Plan: NEURO Hydrocephalus S/p neurosurgical procedure Neuro checks hourly Pain control with POs EVD management per neurosurgery. Clamp today CV HDS No acute issues SBP goal <160 PULMO No acute issues pulm toilet, IS, OOB RENAL Preserved renal function Trend creat Avoid dehydration I/O goal euvolemia Fluids/ Electrolytes Hypomagnesemia Follow and replete electrolytes PRN GI no acute issue ADAT HEM/coagulation Acute postoperative blood loss anemia HCT stable Daily CBC ID Leukocytosis, reactive afebrile ENDO Euglycemia SSI PRN Goal glucose <180 Muskuloskeletal/ Skin PT/OT OTHER ICU Dispo SCDs for DVT prophy, n/a for GI prophy Cont ICU care while EVD in place Last Vitals: BP 124/78 | Pulse 97 | Temp 36.7 C (98.1 F) | RR 17 | Ht 1.753 m (5' 9.02" ) | Wt 94 kg (207 lb 3.7 oz) | SpO2 93% | BMI 30.59 kg/(m^2) 24 Hour Vital Min/Max: Systolic (24hrs), Av mmHg, Min:109 mmHg, Max:175 mmHg Diastolic (24hrs), Av mmHg, Min:58 mmHg, Max:97 mmHg Pulse Min: 82 Max: 120 Temp Min: 36.2 C (97.2 F) Max: 37.6 C (99.7 F) Resp Min: 13 Max: 29 SpO2 Min: 91 % Max: 100 % Intake/Output Summary (Last 24 hours) at 03/21/12 0602 Last data filed at 03/21/12 0500 Gross per 24 hour Intake 4212.4 ml Output 1483 ml Net 2729.4 ml Physical Exam by systems: Neuro:awake, oriented x3, conversant, follows commands, PERRL, EOMI, tongue ML, face symmet bonita, shrugs shoulders, QUINTANILLA though 4/5 on right, no drift, FTN intact Chest: clear to auscultation Cardiovascular: RRR, no m/r/g Abdomen: soft, nontender, nondistended, +BS Extremities: pink, warm, dry Integument:grossly intact Other:incision c/d/i BP 124/78 | Pulse 97 | Temp 36.7 C (98.1 F) | RR 17 | Ht 1.753 m (5' 9.02") | Wt 94 kg (207 lb 3.7 oz) | SpO2 93% | BMI 30.59 kg/(m^2) Admit wt:Weight: 94 kg (207 lb 3.7 oz) (03/20/12 06) Today s weight: Not on file. Date 03/20/12699 - 03/21/1265803/21/12699 - 03/22/12 0659 Shift 4807-0862 9844-3334 7666-8411 Daily Total 3783-0291 2049-0875 6608-5018 Daily Total I N T A K E P.O. 340 240 580 I.V. 2019 920 692.4 3632.4 Shift Total 2019 1260 932.4 4212.4 O U T P U T Urine 325 478 044 6546 Urine 325 648 353 4489 Emesis 200 200 Emesis 200 200 Emesis 2 2 Drains 3 5 20 28 CSF Output (CSF Catheter Left;Frontal) 3 5 20 28 Other 5 5 Menstruation 1 1 EBL 5 5 Shift Total 333 974 206 1415 NET 1687 705 337.4 2729.4 Chemistries: Last 72 Hours (or 3 results): Recent Labs Basename 03/21/12 0221 03/21/1215603/20/12 1053 NA -- 135* 143 K -- 3.8 3.9 CL -- 107 111* BICARB -- 20* 21 BUN -- 8 8 CR -- 0.59* 0.76 GLU 131* 108* 109* CA -- 8.3* 8.1* MG -- 1.9 -- PO4 -- 1.6* -- CBC with diff last 72 hours (or 3 results) Recent Labs Basename 03/21/1215603/20/12 1053 WBC 17.3* 10.6 HB 12.8 13.8 HCT 37.9 41.1 PLT 248 231 NEUTROPERC -- -- BANDPCT -- -- LYMPHPERC -- -- MONOPERC -- -- BASOPERC -- -- EOSPERC -- -- Feeding: regular Analgesia:tylenol, oxycodone Sedation:none Thromboprophylaxis: SCDs Head of Bed: PT/OT, HOB 30 degrees Ulcer Prophylaxis: n/a Glycemic control: not indicated Relevant Risks: This patient is currently at risk for the following: electrolyte imbalan ce, hydrocephalus and seizure; DVT/Pulmonary embolism. I spent 35 minutes actively and independently involved in the care and management of this patient who is critically ill and is being treated for central nervous system failure at t his time. [facility] DEPARTMENT: [id number] ICU NEURO Place of Service:- Inpatient Date of Service: 03/21/2012 CSN: [id number] Suggested Modifier: None Suggested CPT: TO TOOL AND DIE MAKER LEVEL FIVE This patient has been staffed with Dr. Rocky Salazar, attending physician, who agrees with th e above assessment and plan. CHI Greenberg NP Nolvia Jean Baptiste MD - 03/21/2012 5:00 AM PST NEUROSURGERY PROGRESS NOTE Author: JOSE HOOKER MD Attending Physician: Nolvia Delgado MD HPI/Interval Update: No AE overnight. No complaints. Physical Exam: BP 121/69 | Pulse 102 | Temp 36.7 C (98.1 F) | RR 19 | Ht 1.753 m (5' 9.02") | Wt 94 kg (207 lb 3.7 oz) | SpO2 91% | BMI 30.59 kg/(m^2) Systolic (24hrs), Av mmHg, Min:109 mmHg, Max:175 mmHg Diastolic (24hrs), Av mmHg, Min:58 mmHg, Max:97 mmHg Pulse Av Min: 82 Max: 120 Temp Av.8 C (98.2 F) Min: 36.2 C (97.2 F) Max: 37.6 C (99.7 F) Resp Av.7 Min: 13 Max: 29 SpO2 Av % Min: 91 % Max: 100 % Intake/Output Summary (Last 24 hours) at 03/21/12 0500 Last data filed at 03/21/12 0400 Gross per 24 hour Intake 3930 ml Output 1482 ml Net 2448 ml Lab Results Component Value Date/Time NA 135* 03/21/2012 1:57 AM K 3.8 03/21/2012 1:57 AM CR 0.59* 03/21/2012 1:57 AM HCT 37.9 03/21/2012 1:57 AM WBC 17.3* 03/21/2012 1:57 AM PLT 248 03/21/2012 1:57 AM ] No results found for this basename: culture Exam: Awake and alert, oriented times 3, slow speech PERRL, EOMI, facial sensation intact, face symmetric, tongue at midline 4+/5 on the R all over (malena with elbow flexion and hip flexion), 5/5 on the L except for 3/ 5 with DF bilat Sensation intact to LT throughout No drift EVD at 15, output 27cc, ICP 1-13 Incision c/d/i Assessment and Plan: 41 yo F POD 1 from ETV with 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 I agree with the residents docum entation and have documented any additions or exceptions. Chris, Rocky Liang MD - 03/20/2012 4:59 PM PST 7NSICU ATTENDING EVP [facility] [employer] DAILY PROGRESS NOTE Team Pager: [phone] Attendin Date:03/20/2012 Critical Care Attending Physician: ROCKY SALAZAR MD Referring Attending P aylinsician: Nolvia Delgado MD I saw and evaluated the patient at the bedside together with Justino Tong (DIET TECHNICIAN REGISTERED). Please see her note for details of the encounter. I reviewed the all data and the recent imaging available . I have discussed findings and plan of care with the primary team and the consultants [facility] ed. (Relevant data is listed at the bottom of this note) CC / Hx / Last 24hr: POD # 0: 3rd ventriculostomy and EVD placement ; h/o mild congenital hydrocephalus with recent UE right hand motor weakness Current problems include: - maintain EVD at 15cm - N/V and pain management - Goal BP<160; glu <180 Relevant Risks: This patient is currently at risk for the following: hydrocephalus and s eizure; DVT/Pulmonary embolism. I spent 31 minutes actively involved in the care and management of this patient . Rocky Salazar MD [facility] DEPARTMENT: [id number] ICU NEURO Place of Service:- Inpatient Date of Service: 03/20/2012 CSN: [id number] Suggested Modifier: None Suggested CPT: TO TOOL AND DIE MAKER LEVEL FIVE RELEVANT DATA: Last Vitals: BP 113/66 | Pulse 89 | Temp 36.7 C (98.1 F) | RR 15 | Ht 1.753 m (5' 9.02" ) | Wt 94 kg (207 lb 3.7 oz) | SpO2 94% | BMI 30.59 kg/(m^2) Intake/Output Summary (Last 24 hours) at 03/20/12 1659 Last data filed at 03/20/12 1600 Gross per 24 hour Intake 2230 ml Output 333 ml Net 1897 ml Recent Labs Basename 03/20/12 1053 NA 143 K 3.9 CL 111* BICARB 21 BUN 8 CR 0.76 CA 8.1* MG -- PO4 -- ALB -- Recent Labs Basename 03/20/12 1053 WBC 10.6 HB 13.8 HCT 41.1 PLT 231 NEUTROPERC -- BANDPCT -- LYMPHPERC -- MONOPERC -- BASOPERC -- EOSPERC -- [facility] - 03/20/2012 11:55 AM [facility] NEUROSURGERY POST OPERATIVE CHECK Author: PIA KELLY MD Date: 03/20/2012 Attending Physician: Nolvia Delgado MD S: - S/P Left endoscopic third ventriculostomy with placement of an EVD - Pt is doing well post operatively. She had some nausea/emesis when attempting to get post operative head CT, which was aborted. She is feeling better now after some zofran and will soon reattempt CT. She denies any significant headaches, tinnitus, paresthesias, or new we akness. She has baseline poor vision but is typically able to read large print and watch tel evision. She also has baseline right leg weakness, which she feels is stable. VITAL SIGNS: BP 129/74 | Pulse 90 | Temp 36.8 C (98.2 F) | RR 23 | Ht 1.753 m (5' 9.02") | Wt 94 kg (207 lb 3.7 oz) | SpO2 95% | BMI 30.59 kg/(m^2) PHYSICAL EXAM FINDINGS: A&O to name, and hospital in [place]; believes it's 2011 (month unknown) Following commands, answering appropriately 1mm pupils - unable to appreciate response; dysconjugate gaze with unstable eye movements a t rest Demonstrates some visual acuity - accurately identifies # fingers consistently Sensation in tact in V1-V3 distributions bilaterally; Face motor grossly intact; eyes close fully Shrugs shoulders bilaterally Tongue midline 5/5 strength Bilateral UEs 4+/5 RLE (baseline per pt) 5/5 LLE Left EVD in situ POST OPERATIVE IMAGING: Head CT: Pending A/P: Neurologically stable. Continue care: - Keep EVD @ 15cm H20 above tragus - Obtain post operative head CT soon - Neuro checks q 1 hour - Keep incision C/D/I. - Maintain adequate analgesia with goal RASS 0 - SBP 100-160 - ADAT - Utilize bowel regimen for goal 1 BM per 24 hours - SCDs while in bed Pia Kelly M.D. PGY-2, Neurological Surgery documented in this e ncounter Plan of Treatment +--------+---------+ + + + | Date | Type | Specialty | Care Team | Description | +--------+---------+ + + + | 11/24/ | Office | Neurological Surgery | MickyNolvia benavides, | | | 2020 | Visit | | [address] | | | | | | [place], [place] | | | | | | [address] | | | | | | [phone] | | | | | | | | +--------+---------+ + + + documented as of this encounter Procedures + +--------+ + + + | Procedure Name | Priori | Date/Time | Associated Diagnosis | Comments | | | ty | | | | + +--------+ + + + | PROCEDURE NOTE | Routin | 04/21/2015 | | Results for this | | | e | 12:01 AM | | procedure are in the | | | | PST | | results section. | + +--------+ + + + | PROCEDURE NOTE | Routin | 04/20/2015 | | Results for this | | | e | 11:58 PM | | procedure are in the | | | | PST | | results section. | + +--------+ + + + | TEACHING PHYSICIAN | | 03/24/2012 | | Results for this | | | | 11:53 AM | | procedure are in the | | | | PST | | results section. | + +--------+ + + + | BASIC METABOLIC SET | Routin | 03/24/2012 | | Results for this | | (NA, K, CL, TCO2, | e | 10:39 AM | | procedure are in the | | BUN, CR, GLU, CA) | | PST | | results section. | + +--------+ + + + | CBC ONLY | Routin | 03/24/2012 | | Results for this | | | e | 3:22 AM | | procedure are in the | | | | PST | | results section. | + +--------+ + + + | CBC ONLY | Routin | 03/24/2012 | | Results for this | | | e | 3:22 AM | | procedure are in the | | | | PST | | results section. | + +--------+ + + + | BASIC METABOLIC SET | Routin | 03/24/2012 | | Results for this | | (NA, K, CL, TCO2, | e | 3:16 AM | | procedure are in the | | BUN, CR, GLU, CA) | | PST | | results section. | + +--------+ + + + | SPECIFIC GRAVITY | Routin | 03/23/2012 | | Results for this | | URINE, POC RESULT | e | 11:54 PM | | procedure are in the | | | | PST | | results section. | + +--------+ + + + | BASIC METABOLIC SET | Routin | 03/23/2012 | | Results for this | | (NA, K, CL, TCO2, | e | 8:43 PM | | procedure are in the | | BUN, CR, GLU, CA) | | PST | | results section. | + +--------+ + + + | SPECIFIC GRAVITY | Routin | 03/23/2012 | | Results for this | | URINE, POC RESULT | e | 5:19 PM | | procedure are in the | | | | PST | | results section. | + +--------+ + + + | BASIC METABOLIC SET | Routin | 03/23/2012 | | Results for this | | (NA, K, CL, TCO2, | e | 3:30 PM | | procedure are in the | | BUN, CR, GLU, CA) | | PST | | results section. | + +--------+ + + + | SODIUM TOTAL, URINE | Routin | 03/23/2012 | | Results for this | | | e | 1:14 PM | | procedure are in the | | | | PST | | results section. | + +--------+ + + + | OSMOLALITY, URINE | Routin | 03/23/2012 | | Results for this | | SPOT | e | 1:14 PM | | procedure are in the | | | | PST | | results section. | + +--------+ + + + | BASIC METABOLIC SET | Routin | 03/23/2012 | | Results for this | | (NA, K, CL, TCO2, | e | 10:19 AM | | procedure are in the | | BUN, CR, GLU, CA) | | PST | | results section. | + +--------+ + + + | CBC ONLY | Routin | 03/23/2012 | | Results for this | | | e | 8:04 AM | | procedure are in the | | | | PST | | results section. | + +--------+ + + + | RENAL FUNCTION SET | Routin | 03/23/2012 | | Results for this | | (NA,K,CL,CO2,BUN,CRE | e | 8:04 AM | | procedure are in the | | AT,GLUC,CA,PHOS,ALB | | PST | | results section. | | ) | | | | | + +--------+ + + + | CBC ONLY | Routin | 03/23/2012 | | Results for this | | | e | 8:04 AM | | procedure are in the | | | | PST | | results section. | + +--------+ + + + | CAPILLARY BLOOD | Routin | 03/23/2012 | | Results for this | | GLUCOSE (NO CHG), | e | 8:03 AM | | procedure are in the | | POC | | PST | | results section. | + +--------+ + + + | CAPILLARY BLOOD | Routin | 03/23/2012 | | Results for this | | GLUCOSE (NO CHG), | e | 6:13 AM | | procedure are in the | | POC | | PST | | results section. | + +--------+ + + + | CAPILLARY BLOOD | Routin | 03/22/2012 | | Results for this | | GLUCOSE (NO CHG), | e | 11:34 PM | | procedure are in the | | POC | | PST | | results section. | + +--------+ + + + | CBC ONLY | Routin | 03/22/2012 | | Results for this | | | e | 2:49 AM | | procedure are in the | | | | PST | | results section. | + +--------+ + + + | RENAL FUNCTION SET | Urgent | 03/22/2012 | | Results for this | | (NA,K,CL,CO2,BUN,CRE | | 2:49 AM | | procedure are in the | | AT,GLUC,CA,PHOS,ALB | | PST | | results section. | | ) | | | | | + +--------+ + + + | CBC ONLY | Routin | 03/22/2012 | | Results for this | | | e | 2:49 AM | | procedure are in the | | | | PST | | results section. | + +--------+ + + + | MAGNESIUM, PLASMA | Urgent | 03/22/2012 | | Results for this | | | | 2:49 AM | | procedure are in the | | | | PST | | results section. | + +--------+ + + + | OPERATION RECORD | | 03/21/2012 | | Results for this | | | | 1:59 PM | | procedure are in the | | | | PST | | results section. | + +--------+ + + + | CAPILLARY BLOOD | Routin | 03/21/2012 | | Results for this | | GLUCOSE (NO CHG), | e | 2:21 AM | | procedure are in the | | POC | | PST | | results section. | + +--------+ + + + | CBC ONLY | Routin | 03/21/2012 | | Results for this | | | e | 1:57 AM | | procedure are in the | | | | PST | | results section. | + +--------+ + + + | RENAL FUNCTION SET | Urgent | 03/21/2012 | | Results for this | | (NA,K,CL,CO2,BUN,CRE | | 1:57 AM | | procedure are in the | | AT,GLUC,CA,PHOS,ALB | | PST | | results section. | | ) | | | | | + +--------+ + + + | CBC ONLY | Routin | 03/21/2012 | | Results for this | | | e | 1:57 AM | | procedure are in the | | | | PST | | results section. | + +--------+ + + + | MAGNESIUM, PLASMA | Urgent | 03/21/2012 | | Results for this | | | | 1:57 AM | | procedure are in the | | | | PST | | results section. | + +--------+ + + + | CT HEAD WO CONTRAST | Urgent | 03/20/2012 | | Results for this | | | | 12:35 PM | | procedure are in the | | | | PST | | results section. | + +--------+ + + + | CBC ONLY | Urgent | 03/20/2012 | | Results for this | | | | 10:53 AM | | procedure are in the | | | | PST | | results section. | + +--------+ + + + | INR | Urgent | 03/20/2012 | | Results for this | | | | 10:53 AM | | procedure are in the | | | | PST | | results section. | + +--------+ + + + | BASIC METABOLIC SET | Urgent | 03/20/2012 | | Results for this | | (NA, K, CL, TCO2, | | 10:53 AM | | procedure are in the | | BUN, CR, GLU, CA) | | PST | | results section. | + +--------+ + + + | CBC ONLY | Urgent | 03/20/2012 | | Results for this | | | | 10:53 AM | | procedure are in the | | | | PST | | results section. | + +--------+ + + + | ENDOSCOPIC 3RD | Electi | 03/20/2012 | Other conditions | | | VENTRICULOSTOMY | ve | 7:29 AM | of brain | | | PLACEMENT | Surgic | PST | | | | | al | | | | + +--------+ + + + | CT HEAD WO CONTRAST | Routin | 03/20/2012 | | Results for this | | | e | 7:03 AM | | procedure are in the | | | | PST | | results section. | + +--------+ + + + documented in this encounter Results PROCEDURE NOTE (04/21/2015 12:01 AM PST)PROCEDURE NOTE (04/20/2015 11:58 PM PST) + + | Transcriptions | + + | Other, Faculty - 03/27/2012 10:41 AM PST | + + TEACHING PHYSICIAN (03/24/2012 11:53 AM PST) + + | Transcriptions | + + | Nolvia Delgado MD - 03/22/2012 5:18 AM PST | | Date: 03/20/2012 | | | | Attending Surgeon: Nolvia Delgado M.D. | | | | Hotel Breakfast Attendant(s): Carlos Baron M.D. | | | | Preoperative Diagnosis(es): | | Aqueductal stenosis with obstructive hydrocephalus. | | | | Postoperative Diagnosis(es): | | Aqueductal stenosis with obstructive hydrocephalus. | | | | Procedures Performed: | | 1. Neuroendoscopy for third ventriculostomy. | | 2. Frameless stereotactic navigation. | | 3. Placement of left frontal external ventricular drain. | | | | | | Pursuant to Medicare Federal billing regulations, I certify that I was | | present and scrubbed for the kelley and essential elements of the procedure. | | A full operative report will be dictated by Dr. Carlos Baron. | | | | | | Nolvia Delgado M.D. | | AR / HS | | [id number] / [id number] / [id number] / | | | | | + + BASIC METABOLIC SET (NA, K, CL, TCO2, BUN, CR, GLU, CA) (03/24/2012 10:39 AM PST) + +---------+ + + + | Component | Value | Ref Range | Performed | Pathologist | | | | | At | Signature | + +---------+ + + + | GLUCOSE, | 87 | 60 - 99 mg/dL | [facility] | | | PLASMA | | | LABORATORY | | | (LAB) | | | SERVICES, | | | | | | CORE | | + +---------+ + + + | BUN, PLASMA | 8 | 6 - 20 mg/dL | [facility] [...] +---------+ + + + | SODIUM, | 129 (L) | 136 - 145 | [facility] | [...] +---------+ + + + | CHLORIDE, | 96 (L) | 97 - 108 mmol/L | [facility] | | | PLASMA | | | LABORATORY | | | (LAB) | | | SERVICES, | | | | | | CORE | | + +---------+ + + + | TOTAL CO2, | 23 | 21 - 32 mmol/L | [facility] [...] + | ANION GAP | 10 | 4 - 11 mmol/L [...] [facility] | [address] | [place] [address] | | | SERVICES, CORE | [address] | | | + + + + + CBC (03/24/2012 3:22 AM PST) + + + + + + | Component | Value | Ref Range | Performed | Pathologist | | | | | At | Signature | + + + + + + | WHITE CELL | 13.2 (H) | 4.4 - 11.0 K/cu | [facility] | | | COUNT [...] + + + + | HEMATOCRIT | 39.2 | 36.0 - 46.0 % | [facility] | | | | | | LABORATORY | | | | | | SERVICES, | | | | | | CORE | | + + + + + + | MCV | 94.3 | 80.0 - 96.0 fL | [facility] | | | | | | LABORATORY | | | | | | SERVICES, | | | | | | CORE | | + + + + + + | MCHC | 33.5 | 33.4 - 35.5 | [facility] | | | | | g/dL | LABORATORY | | | | | | SERVICES, | | | | | | CORE | | + + + + + + | RDW | 13.0 | 11.5 - 15.0 % | [facility] | | | | | | LABORATORY | | | | | | SERVICES, | | | | | | CORE | | + + + + + + | PLATELET | 256 | 150 - 400 K/cu | [facility] [...] [facility] | [address] | [place] [address] | | | SERVICES, CORE | [address] | | | + + + + + BASIC METABOLIC SET (NA, K, CL, TCO2, BUN, CR, GLU, CA) (03/24/2012 3:16 AM PST) + +---------+ + + + | Component | Value | Ref Range | Performed | Pathologist | | | | | At | Signature | + +---------+ + + + | GLUCOSE, | 90 [...] +---------+ + + + | SODIUM, | 130 (L) | 136 - 145 | [facility] | [...] +---------+ + + + | CHLORIDE, | 96 (L) | 97 - 108 mmol/L | [facility] [...] + | ANION GAP | 10 | 4 - 11 mmol/L [...] | + + + + + | [facility] | [address] | [place] [address] | | | SERVICES, CORE | [address] | | | + + + + + SPECIFIC GRAVITY URINE, POC RESULT (03/23/2012 11:54 PM PST) + +-------+ + + + | Component | Value | Ref Range | Performed | Pathologist | | | | | At | Signature | + +-------+ + + + | SPECIFIC | 1.014 | 1.005 - 1.03 | | | | GRAVITY, | | | | | | RANDOM UR | | | | | | POC | | | | | + +-------+ + + + BASIC METABOLIC SET (NA, K, CL, TCO2, BUN, CR, GLU, CA) (03/23/2012 8:43 PM PST) + +---------+ + + + | Component | Value | Ref Range | Performed | Pathologist | | | | | At | Signature | + +---------+ + + + | GLUCOSE, | 108 (H) | 60 - 99 mg/dL | [...] +---------+ + + + | SODIUM, | 129 (L) | 136 - 145 | [facility] | [...] +---------+ + + + | CHLORIDE, | 95 (L) | 97 - 108 mmol/L | [facility] [...] + | ANION GAP | 9 | 4 - 11 mmol/L [...] | + + + + + | [facility] | [address] | [place] [address] | | | SERVICES, CORE | [address] | | | + + + + + SPECIFIC GRAVITY URINE, POC RESULT (03/23/2012 5:19 PM PST) + +-------+ + + + | Component | Value | Ref Range | Performed | Pathologist | | | | | At | Signature | + +-------+ + + + | SPECIFIC | 1.016 | 1.005 - 1.03 | | | | GRAVITY, | | | | | | RANDOM UR | | | | | | POC | | | | | + +-------+ + + + BASIC METABOLIC SET (NA, K, CL, TCO2, BUN, CR, GLU, CA) (03/23/2012 3:30 PM PST) + +---------+ + + + | Component | Value | Ref Range | Performed | Pathologist | | | | | At | Signature | + +---------+ + + + | GLUCOSE, | 133 (H) | 60 - 99 mg/dL | [facility] | | | PLASMA | | | LABORATORY | | | (LAB) | | | SERVICES, | | | | | | CORE | | + +---------+ + + + | BUN, PLASMA | 8 | 6 - 20 mg/dL | [facility] | | | (LAB) | | | LABORATORY | | | | | | SERVICES, | | | | | | CORE | | + +---------+ + + + | CREATININE | 0.62 | 0.60 - 1.10 | [facility] | | | PLASMA | | mg/dL | LABORATORY | | | (LAB) | | | SERVICES, | | | | | | CORE | | + +---------+ + + + | SODIUM, | 126 (L) | 136 - 145 | [facility] | [...] +---------+ + + + | CHLORIDE, | 92 (L) | 97 - 108 mmol/L | [facility] [...] + | ANION GAP | 8 | 4 - 11 mmol/L [...] [facility] | [address] | [place] [address] | | | SERVICES, CORE | [address] | | | + + + + + SODIUM TOTAL, URINE (03/23/2012 1:14 PM PST) + +-------+ + + + | Component | Value | Ref Range | Performed | Pathologist | | | | | At | Signature | + +-------+ + + + | SODIUM CONC | 59 | mmol/L | [facility] | | | URINE | | | LABORATORY | | | | | | SERVICES, | | | | | | CORE | | + +-------+ + + + + + | Specimen | + + | Urine - Urine | + + + + + | Narrative | Performed At | + + + | Normal values based on 24 hour collection interval. Patient | [facility] | | results are calculated from actual collection interval and volume. | LABORATORY | | | SERVICES, CORE | + + + + + + + + | Performing | Address | City/State/Zipcode | Phone Number | | Organization | | | | + + + + + | [facility] | [address] | [place] [address] | | | SERVICES, CORE | [address] | | | + + + + + OSMOLALITY, URINE SPOT (03/23/2012 1:14 PM PST) + +-------+ + + + | Component | Value | Ref Range | Performed | Pathologist | | | | | At | Signature | + +-------+ + + + | OSMOLALITY | 472 | mOsm/Kg H2O | [facility] | | | URINE | | | LABORATORY | | | | | | SERVICES, | | | | | | CORE | | + +-------+ + + + + + | Specimen | + + | Urine - Urine | + + + + + | Narrative | Performed At | + + + | Reference Ranges: Random Urine: | [facility] | | 50-1200 mOm/kg H20 24 Hr., average fluid intake: 300-900 | LABORATORY | | mOm/kg H20 After 12 Hr. fluid restriction: >850 mOm/kg H20 | SERVICES, CORE | + + + + + + + + | Performing | Address | City/State/Zipcode | Phone Number | | Organization | | | | + + + + + | [facility] | [address] | [place] [address] | | | SERVICES, CORE | [address] | | | + + + + + BASIC METABOLIC SET (NA, K, CL, TCO2, BUN, CR, GLU, CA) (03/23/2012 10:19 AM PST) + +---------+ + + + | Component | Value | Ref Range | Performed | Pathologist | | | | | At | Signature | + +---------+ + + + | GLUCOSE, | 110 (H) | 60 - 99 mg/dL | [...] +---------+ + + + | CREATININE | 0.71 | 0.60 - 1.10 | [facility] | | | PLASMA | | mg/dL | LABORATORY | | | (LAB) | | | SERVICES, | | | | | | CORE | | + +---------+ + + + | SODIUM, | 128 (L) | 136 - 145 | [facility] | [...] +---------+ + + + | CHLORIDE, | 98 | 97 - 108 mmol/L | [facility] | | | PLASMA | | | LABORATORY | | | (LAB) | | | SERVICES, | | | | | | CORE | | + +---------+ + + + | TOTAL CO2, | 20 (L) | 21 - 32 mmol/L | [facility] [...] + | ANION GAP | 10 | 4 - 11 mmol/L [...] | + + + + + | [facility] | [id number] | [place] [address] | | | SERVICES, CORE | HAYDEE MACHUCA | | | + + + + + CBC (03/23/2012 8:04 AM PST) + + + + + + | Component | Value | Ref Range | Performed | Pathologist | | | | | At | Signature | + + + + + + | WHITE CELL | 14.2 (H) | 4.4 - 11.0 K/cu | [facility] | | | COUNT | | mm | LABORATORY | | | | | | SERVICES, | | | | | | CORE | | + + + + + + | RED CELL | 4.29 | 4.00 - 5.20 | [facility] | | | COUNT | | M/cu mm | LABORATORY | | | | | | SERVICES, | | | | | | CORE | | + + + + + + | HEMOGLOBIN | 13.7 | 12.0 - 16.0 | [facility] | | | | | g/dL | LABORATORY | | | | | | SERVICES, | | | | | | CORE | | + + + + + + | HEMATOCRIT | 40.5 | 36.0 - 46.0 % | [facility] | | | | | | LABORATORY | | | | | | SERVICES, | | | | | | CORE | | + + + + + + | MCV | 94.4 | 80.0 - 96.0 fL | [facility] | | | | | | LABORATORY | | | | | | SERVICES, | | | | | | CORE | | + + + + + + | MCHC | 33.9 | 33.4 - 35.5 | [facility] | | | | | g/dL | LABORATORY | | | | | | SERVICES, | | | | | | CORE | | + + + + + + | RDW | 13.0 | 11.5 - 15.0 % | [facility] | | | | | | LABORATORY | | | | | | SERVICES, | | | | | | CORE | | + + + + + + | PLATELET | 253Comment: Final | 150 - 400 K/cu | [facility] | | | COUNT | platelet report. | mm | LABORATORY | | | [...] [facility] | [address] | [place] [address] | | | SERVICES, CORE | [address] | | | + + + + + RENAL FUNCTION SET (NA,K,CL,CO2,BUN,CREAT,GLUC,CA,PHOS,ALB ) (03/23/2012 8:04 AM PST) + +---------+ + + + [...] +---------+ + + + | CREATININE | 0.60 | 0.60 - 1.10 | [facility] | | | PLASMA | | mg/dL | LABORATORY | | | (LAB) | | | SERVICES, | | | | | | CORE | | + +---------+ + + + | SODIUM, | 126 (L) | 136 - 145 | [facility] | | | PLASMA | | mmol/L | LABORATORY | | | (LAB) | | | SERVICES, | | | | | | CORE | | + +---------+ + + + | POTASSIUM, | 5.0 | 3.4 - 5.0 | [facility] | | | PLASMA | | mmol/L | LABORATORY | | | (LAB) | | | SERVICES, | | | | | | CORE | | + +---------+ + + + | CHLORIDE, | 97 | 97 - 108 mmol/L | [facility] | | | PLASMA | | | LABORATORY | | | (LAB) | | | SERVICES, | | | | | | CORE | | + +---------+ + + + | TOTAL CO2, | 19 (L) | 21 - 32 mmol/L | [facility] | | | PLASMA | | | LABORATORY | | | (LAB) | | | SERVICES, | | | | | | CORE | | + +---------+ + + + | CALCIUM, | 8.4 (L) | 8.6 - 10.2 | [facility] [...] +---------+ + + + | PHOSPHORUS, | 2.1 (L) | 2.4 - 4.7 mg/dL | [facility] | | | PLASMA | | | LABORATORY | | | (LAB) | | | SERVICES, | | | | | | CORE | | + +---------+ + + + | POTASSIUM | Mk Hemo | | [facility] | | | CMNT | | | LABORATORY | | | | | | SERVICES, | | | | | | CORE | | + +---------+ + + + | ANION GAP | 10 | 4 - 11 mmol/L [...] under test result. | LABORATORY | | | RYNE ARIAS | + + + + + + + + | Performing | Address | City/State/Zipcode | Phone Number | | Organization | | | | + + + + + | [facility] | [address] | [place] [address] | | | SERVICES, [place] | [address] | | | + + + + + CAPILLARY BLOOD GLUCOSE (NO CHG), POC (03/23/2012 8:03 AM PST) + +-------+ + + + | Component | Value | Ref Range | Performed | Pathologist | | | | | At | Signature | + +-------+ + + + | BLOOD | 95 | 60 - 99 mg/dL [...] [facility] | [address] | [place], [place] | | | BOB POINT OF CARE | [facility] | [address] | | | TESTS | | | | + + + + + CAPILLARY BLOOD GLUCOSE (NO CHG), POC (03/23/2012 6:13 AM PST) + +-------+ + + + | Component | Value | Ref Range | Performed | Pathologist | | | | | At | Signature | + +-------+ + + + | BLOOD | 96 | 60 - 99 mg/dL | [facility] [...] + | [facility] | [address] | [place], [place] | | | BOB POINT OF CARE | [address] | [address] | | | TESTS | | | | + + + + + CAPILLARY BLOOD GLUCOSE (NO CHG), POC (03/22/2012 11:34 PM PST) + +-------+ + + + | Component | Value | Ref Range | Performed | Pathologist | | | | | At | Signature | + +-------+ + + + | BLOOD | 94 | 60 - 99 mg/dL | [facility] | | | GLUCOSE, | | | [facility] | | | POC | | | BOB POINT | | | | | | [...] + + + | [facility] | [address] | [place], [place] | | | [facility] [facility] [place] | [address] | [address] | | | TESTS | | | | + + + + + CBC (03/22/2012 2:49 AM PST) + + + + + + | Component | Value | Ref Range | Performed | Pathologist | | | | | At | Signature | + + + + + + | WHITE CELL | 15.0 (H) | 4.4 - 11.0 K/cu | [facility] | | | COUNT | | mm | LABORATORY | | | | | | SERVICES, | | | | | | CORE | | + + + + + + | RED CELL | 3.94 (L) | 4.00 - 5.20 | [facility] | | | COUNT | | M/cu mm | LABORATORY | | | | | | SERVICES, | | | | | | CORE | | + + + + + + | HEMOGLOBIN | 12.7 | 12.0 - 16.0 | [facility] | | | | | g/dL | LABORATORY | | | | | | SERVICES, | | | | | | CORE | | + + + + + + | HEMATOCRIT | 36.8 | 36.0 - 46.0 % | [facility] | | | | | | LABORATORY | | | | | | SERVICES, | | | | | | CORE | | + + + + + + | MCV | 93.4 | 80.0 - 96.0 fL | [facility] | | | | | | LABORATORY | | | | | | SERVICES, | | | | | | CORE | | + + + + + + | MCHC | 34.6 | 33.4 - 35.5 | [facility] | | | | | g/dL | LABORATORY | | | | | | SERVICES, | | | | | | CORE | | + + + + + + | RDW | 12.7 | 11.5 - 15.0 % | [facility] | | | | | | LABORATORY | | | | | | SERVICES, | | | | | | CORE | | + + + + + + | PLATELET | 248 | 150 - 400 K/cu | [facility] [...] | + + + + + | [facility] | [address] | [place] [address] | | | SERVICES, CORE | [address] | | | + + + + + MAGNESIUM, PLASMA (03/22/2012 2:49 AM PST) + +---------+ + + + | Component | Value | Ref Range | Performed | Pathologist | | | | | At | Signature | + +---------+ + + + | MAGNESIUM,P | 1.6 (L) | 1.8 - 2.5 mg/dL | [facility] [...] [facility] | [address] | [place] [address] | | | SERVICES, CORE | [address] | | | + + + + + RENAL FUNCTION SET (NA,K,CL,CO2,BUN,CREAT,GLUC,CA,PHOS,ALB ) (03/22/2012 2:49 AM PST) + + + + + + | Component | Value | Ref Range | Performed | Pathologist | | | | | At | Signature | + + + + + + | GLUCOSE, | 115 (H) | 60 - 99 mg/dL | [...] + + + + | CREATININE | 0.51 (L) | 0.60 - 1.10 | [facility] | | | PLASMA | | mg/dL | LABORATORY | | | (LAB) | | | SERVICES, | | | | | | CORE | | + + + + + + | SODIUM, | 133 (L) | 136 - 145 | [facility] | [...] + + + + | CHLORIDE, | 102 | 97 - 108 mmol/L | [facility] | | | PLASMA | | | LABORATORY | | | (LAB) | | | SERVICES, | | | | | | CORE | | + + + + + + | TOTAL CO2, | 20 (L) | 21 - 32 mmol/L | [facility] | | | PLASMA | | | LABORATORY | | | (LAB) | | | SERVICES, | | | | | | CORE | | + + + + + + | CALCIUM, | 7.8 (L) | 8.6 - 10.2 | [facility] | | | PLASMA | | mg/dL | LABORATORY | | | (LAB) | | | SERVICES, | | | | | | CORE | | + + + + + + | ALBUMIN, | 3.0 (L) | 3.5 - 4.7 g/dL | [facility] | | | PLASMA | | | LABORATORY | | | (LAB) | | | SERVICES, | | | | | | CORE | | + + + + + + | PHOSPHORUS, | 1.2 (L) | 2.4 - 4.7 mg/dL | [...] + | ANION GAP | 11 | 4 - 11 mmol/L | [facility] | | | | | | LABORATORY | | | | | | SERVICES, | | | | | | CORE | | + + + + + + | ANION | 13 (H) | 4 - 11 mmol/L | [...] | + + + + + | [facility] | [address] | [place] [address] | | | [facility] | [address] | | | + + + + + OPERATION RECORD (03/21/2012 1:59 PM PST) + + | Transcriptions | + + | Carlos Baron MD - 03/20/2012 11:00 PM PST | | Date: 03/20/2012 | | | | Attending Surgeon: Nolvia Delgado M.D. | | | | Hotel Breakfast Attendant(s): Carlos Baron M.D. | | | | | | Preoperative Diagnosis(es): | | Aqueductal stenosis with obstructive hydrocephalus. | | | | Postoperative Diagnosis(es): | | Aqueductal stenosis with obstructive hydrocephalus. | | | | Procedures Performed: | | 1. Endoscopic third ventriculostomy. | | 2. Frameless stereotactic navigation. | | 3. Placement of left frontal external ventricular drain. | | | | | | Indications: | | Rin Casas is a 41-year-old woman with history of progressive right-sided | | weakness and spasticity. 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 Over the | | last several months, she had lost the ability to ambulate because of | | increasing spasticity and weakness in the right side. | | | | Her imaging was consistent with aqueductal stenosis with ventriculomegaly | | of the lateral and third ventricles and normal size of the fourth | | ventricle. She was indicated for the above-named procedure. | | | | Findings: | | We performed a left frontal aime hole and using frameless stereotactic | | navigation guidance, performed endoscopic third ventriculostomy without | | complication. | | | | Procedure: | | The patient was properly identified in the preoperative area and taken to | | the operating room, placed supine on the operating table after induction of | | general endotracheal anesthesia. The patient's head was placed in a | | Austin 3-pin headholder, and all pressure points were padded. The | | frameless stereotactic navigation system was registered. We planned a aime | | hole on the left, approximately at the level of the coronal suture, | | approximately 4 cm to the left of midline. This was chosen as a direct | | access point to the floor of the third ventricle for third ventriculostomy. | | This area was clipped of hair, and a planned curvilinear incision for a | | aime hole was marked on the patient's scalp. The scalp was prepped with | | chlorhexidine, alcohol, and ChloraPrep. The area was draped in a sterile | | fashion. The subcutaneous tissues were infiltrated with local anesthetic. | | A preoperative pause was held confirming the proper patient, procedure, | | positioning, and all films and equipments were available, and the patient | | received preoperative antibiotics. Curvilinear incision was made in the | | scalp and carried down to the skull with Bovie cautery. The small scalp | | flap was elevated and secured with a single stitch. The high-speed drill | | was used to turn a bone flap. We used a frameless stereotactic navigation | | system to identify the location of the bur hole, and to identify the | | trajectory for endoscopic third ventriculostomy from this aime hole. The | | dura was cauterized with bipolar cautery and opened in a cruciate fashion. | | A split sheath trocar was then passed into the ventricle. The endoscope | | was then registered with a frameless stereotactic navigation system and | | passed through the split-sheath trocar into the ventricle, identified the | | left lateral ventricle and identified the foramen of Monro. We followed | | the choroid plexus. We entered the foramen of Monro and entered the third | | ventricle. Before entering the third ventricle, we identified the mass | | intermediate in the mamillary bodies. Using grabbers, we carefully | | dissected the tissue at the base of the third ventricle anterior to the | | mamillary bodies until there was pulsating flow through it. We made | | additional holes lateral to the initial hole. We did not see the basilar | | artery, however. We copiously irrigated, the irrigation was ran free and | | removed the endoscope. An external ventricular drain was then soft passed | | through the location of the trocar into the ventricle and coming out of the | | scalp and secured with a nylon stitch. The scalp was copiously irrigated | | and closed using interrupted 3-0 Vicryl sutures for the galea and a running | | 4-0 Vicryl Rapide for the skin. The scalp was washed clean. The patient | | was removed from Austin 3-pin headholder and extubated in the operating | | room. | | | | Counts: | | All sponge and needle counts were correct at the end of the case. | | | | | | Carlos Baron M.D. | | | | | | Nolvia Delgado M.D. | | | | DAR[place] / [place]IL[place] | | [id number] / [id number] / [id number] / | | | | | + + CAPILLARY BLOOD GLUCOSE (NO CHG), POC (03/21/2012 2:21 AM PST) + +---------+ + + + | Component | Value | Ref Range | Performed | Pathologist | | | | | At | Signature | + +---------+ + + + | BLOOD | 131 (H) | 60 - 99 mg/dL | [...] [facility] | [address] | [place], [place] | | | BOB POINT OF CARE | [facility] | [address] | | | TESTS | | | | + + + + + CBC (03/21/2012 1:57 AM PST) + + + + + + | Component | Value | Ref Range | Performed | Pathologist | | | | | At | Signature | + + + + + + | WHITE CELL | 17.3 (H) | 4.4 - 11.0 K/cu | [facility] | | | COUNT | | mm | LABORATORY | | | | | | SERVICES, | | | | | | CORE | | + + + + + + | RED CELL | 3.99 (L) | 4.00 - 5.20 | [facility] | | | COUNT | | M/cu mm | LABORATORY | | | | | | SERVICES, | | | | | | CORE | | + + + + + + | HEMOGLOBIN | 12.8 | 12.0 - 16.0 | [facility] | | | | | g/dL | LABORATORY | | | | | | SERVICES, | | | | | | CORE | | + + + + + + | HEMATOCRIT | 37.9 | 36.0 - 46.0 % | [facility] [...] + + | MCHC | 33.7 | 33.4 - 35.5 | [facility] | | | | | g/dL | LABORATORY | | | | | | SERVICES, | | | | | | CORE | | + + + + + + | RDW | 13.2 | 11.5 - 15.0 % | [facility] | | | | | | LABORATORY | | | | | | SERVICES, | | | | | | CORE | | + + + + + + | PLATELET | 248 | 150 - 400 K/cu | [facility] [...] [facility] | [address] | [place] [address] | | | SERVICES, CORE | [address] | | | + + + + + MAGNESIUM, PLASMA (03/21/2012 1:57 AM PST) + +-------+ + + + | Component | Value | Ref Range | Performed | Pathologist | | | | | At | Signature | + +-------+ + + + | MAGNESIUM,P | 1.9 | 1.8 - 2.5 mg/dL | [facility] | | | L[facility] | | | [...] | + + + + + | [facility] | [address] | [place] [address] | | | SERVICES, CORE | [address] | | | + + + + + RENAL FUNCTION SET (NA,K,CL,CO2,BUN,CREAT,GLUC,CA,PHOS,ALB ) (03/21/2012 1:57 AM PST) + + + + + + | Component | Value | Ref Range | Performed | Pathologist | | | | | At | Signature | + + + + + + | GLUCOSE, | 108 (H) | 60 - 99 mg/dL | [facility] | | | PLASMA | | | LABORATORY | | | (LAB) | | | SERVICES, | | | | | | CORE | | + + + + + + | BUN, PLASMA | 8 | 6 - 20 mg/dL | [facility] [...] + + + + | SODIUM, | 135 (L) | 136 - 145 | [facility] | | | PLASMA | | mmol/L | LABORATORY | | | (LAB) | | | SERVICES, | | | | | | CORE | | + + + + + + | POTASSIUM, | 3.8 | 3.4 - 5.0 | [facility] | | | PLASMA | | mmol/L | LABORATORY | | | (LAB) | | | SERVICES, | | | | | | CORE | | + + + + + + | CHLORIDE, | 107 | 97 - 108 mmol/L | [facility] | | | PLASMA | | | LABORATORY | | | (LAB) | | | SERVICES, | | | | | | CORE | | + + + + + + | TOTAL CO2, | 20 (L) | 21 - 32 mmol/L | [facility] | | | PLASMA | | | LABORATORY | | | (LAB) | | | SERVICES, | | | | | | CORE | | + + + + + + | CALCIUM, | 8.3 (L) | 8.6 - 10.2 | [facility] | | | PLASMA | | mg/dL | LABORATORY | | | (LAB) | | | SERVICES, | | | | | | CORE | | + + + + + + | ALBUMIN, | 3.2 (L) | 3.5 - 4.7 g/dL | [facility] | | | PLASMA | | | LABORATORY | | | (LAB) | | | SERVICES, | | | | | | CORE | | + + + + + + | PHOSPHORUS, | 1.6 (L) | 2.4 - 4.7 mg/dL | [...] + | ANION GAP | 8 | 4 - 11 mmol/L | [facility] | | | | | | LABORATORY | | | | | | SERVICES, | | | | | | CORE | | + + + + + + | ANION | 10 [...] + | [facility] | [address] | [place] [address] | | | SERVICES, CORE | [address] | | | + + + + + CT HEAD WO CONTRAST (03/20/2012 12:35 PM PST) + + + + + + | Component | Value | Ref Range | Performed | Pathologist | | | | | At | Signature | + + + + + + | CT HEAD WO | CT Head WITHOUT: | | | | | CONTRAST | 03/20/12 12:35:00 | | | | | | Comparison studies: | | | | | | Earlier same day | | | | | | Clinical history: | | | | | | Postop, evaluate for | | | | | | hematoma. TECHNIQUE: | | | | | | Axial CT images of the | | | | | | brain from skull base to | | | | | | vertex,including | | | | | | portions of the face and | | | | | | sinuses, were obtained | | | | | | withoutcontrast. | | | | | | Supplemental 2D | | | | | | reformatted images were | | | | | | generated andreviewed as | | | | | | needed. FINDINGS:Left | | | | | | frontal approach | | | | | | ventriculostomy drain | | | | | | has been placed. | | | | | | Thereis moderate | | | | | | intraventricular gas | | | | | | compatible with recent | | | | | | surgery.Lateral and | | | | | | third ventricles have | | | | | | decreased slightly in | | | | | | size. Thereis no | | | | | | intracranial hemorrhage | | | | | | or shift of midline | | | | | | structures.Paranasal | | | | | | sinuses and mastoid air | | | | | | cells are unremarkable. | | | | | | IMPRESSION:Postoperative | | | | | | changes with interval | | | | | | mild decreased size of | | | | | | thelateral and third | | | | | | ventricles. Left | | | | | | frontal approach | | | | | | ventriculardrain in | | | | | | place. Attending | | | | | | Radiologists: Davis | | | | | | Thomas FernándezAuthor: | | | | | | BERTA MANDUJANO M.D. I | | | | | | have personally viewed | | | | | | this procedure/exam, | | | | | | reviewed this report,and | | | | | | made changes to it | | | | | | where appropriate. | | | | | | Final/Electronically | | | | | | signed / Davis | | | | | | Jolene 03/20/2012 | | | | | | 16:07 PM Pending final | | | | | | approval / BERTA | | | | | | NAZIA 03/20/2012 | | | | | | 13:57 PM Preliminary / | | | | | | BERTA MANDUJANO | | | | | | 03/20/2012 13:11 PM | | | | + + + + + + + + | Specimen | + + | | + + + +---------+ + + | Performing | Address | City/State/Zipcode | Phone Number | | Organization | | | | + +---------+ + + | [facility] | | | | | [facility] | | | | + +---------+ + + CBC (03/20/2012 10:53 AM PST) + +-------+ + + + | Component | Value | Ref Range | Performed | Pathologist | | | | | At | Signature | + +-------+ + + + | WHITE CELL | 10.6 | 4.4 - 11.0 K/cu | [facility] | | | COUNT | | mm | LABORATORY | | | | | | SERVICES, | | | | | | CORE | | + +-------+ + + + | RED CELL | 4.31 | 4.00 - 5.20 | [facility] | | | COUNT | | M/cu mm | LABORATORY | | | | | | SERVICES, | | | | | | CORE | | + +-------+ + + + | HEMOGLOBIN | 13.8 | 12.0 - 16.0 | [facility] | | | | | g/dL | LABORATORY | | | | | | SERVICES, | | | | | | CORE | | + +-------+ + + + | HEMATOCRIT | 41.1 | 36.0 - 46.0 % | [facility] | | | | | | LABORATORY | | | | | | SERVICES, | | | | | | CORE | | + +-------+ + + + | MCV | 95.3 | 80.0 - 96.0 fL | [facility] | | | | | | LABORATORY | | | | | | SERVICES, | | | | | | CORE | | + +-------+ + + + | MCHC | 33.6 | 33.4 - 35.5 | [facility] | | | | | g/dL | LABORATORY | | | | | | SERVICES, | | | | | | CORE | | + +-------+ + + + | RDW | 13.3 | 11.5 - 15.0 % | [facility] | | | | | | LABORATORY | | | | | | SERVICES, | | | | | | CORE | | + +-------+ + + + | PLATELET | 231 | 150 - 400 K/cu | [facility] [...] [facility] | [address] | [place] [address] | | | SERVICES, CORE | [address] | | | + + + + + BASIC METABOLIC SET (NA, K, CL, TCO2, BUN, CR, GLU, CA) (03/20/2012 10:53 AM PST) + +---------+ + + + | Component | Value | Ref Range | Performed | Pathologist | | | | | At | Signature | + +---------+ + + + | GLUCOSE, | 109 (H) | 60 - 99 mg/dL | [facility] | | | PLASMA | | | LABORATORY | | | (LAB) | | | SERVICES, | | | | | | CORE | | + +---------+ + + + | BUN, PLASMA | 8 | 6 - 20 mg/dL | [facility] | | | (LAB) | | | LABORATORY | | | | | | SERVICES, | | | | | | CORE | | + +---------+ + + + | CREATININE | 0.76 | 0.60 - 1.10 | [facility] | | | PLASMA | | mg/dL | LABORATORY | | | (LAB) | | | SERVICES, | | | | | | CORE | | + +---------+ + + + | SODIUM, | 143 | 136 - 145 | [facility] | [...] +---------+ + + + | CHLORIDE, | 111 (H) | 97 - 108 mmol/L | [...] +---------+ + + + | CALCIUM, | 8.1 (L) | 8.6 - 10.2 | [facility] | | | PLASMA | | mg/dL | LABORATORY | | | (LAB) | | | SERVICES, | | | | | | CORE | | + +---------+ + + + | ANION GAP | 11 | 4 - 11 mmol/L [...] [facility] | [address] | [place] [address] | | | SERVICES, CORE | [address] | | | + + + + + INR (03/20/2012 10:53 AM PST) + +-------+ + + + | Component | Value | Ref Range | Performed | Pathologist | | | | | At | Signature | + +-------+ + + + | INR | 1.05 | 0.90 - 1.20 INR | [facility] [...] | + + + + + | [facility] | [address] | [place] [address] | | | SERVICES, CORE | [address] | | | + + + + + CT HEAD WO CONTRAST (03/20/2012 7:03 AM PST) + + + + + + | Component | Value | Ref Range | Performed | Pathologist | | | | | At | Signature | + + + + + + | CT HEAD WO | CT of the head without | | | | | CONTRAST | contrast, stereotactic | | | | | | protocol. History: | | | | | | Preoperative planning. | | | | | | Comparison: Brain MRI | | | | | | 02/03/2012 Technique: | | | | | | Noncontrast stereotactic | | | | | | CT of the brain was | | | | | | performed. Findings: | | | | | | Third and lateral | | | | | | ventriculomegaly and is | | | | | | similar in degreeto the | | | | | | comparison examination. | | | | | | There is no | | | | | | intracranial | | | | | | hemorrhageor shift of | | | | | | midline structures | | | | | | identified. Visualized | | | | | | paranasalsinuses, | | | | | | mastoid air cells, and | | | | | | orbits are unremarkable. | | | | | | Impression: Unchanged | | | | | | ventriculomegaly. | | | | | | Attending Radiologists: | | | | | | Davis Fernández | | | | | | ThomasAuthor: BERTA | | | | | | Thomas MANDUJANO I have | | | | | | personally viewed this | | | | | | procedure/exam, reviewed | | | | | | this report,and made | | | | | | changes to it where | | | | | | appropriate. | | | | | | Final/Electronically | | | | | | signed / Davis | | | | | | Jolene 03/20/2012 | | | | | | 11:11 AM Pending final | | | | | | approval / BERTA | | | | | | NAZIA 03/20/2012 | | | | | | 10:15 AM Preliminary / | | | | | | BERTA MANDUJANO | | | | | | 03/20/2012 9:50 AM | | | | + + [...] + | Diagnosis | + + | Other conditions of brain(348.89) Other conditions of brain | + + documented in this encounter Administered Medications + +--------+ + +------+------+ | Medication Order | MAR | Action | Dose | Rate | Site | | | Action | Date | | | | + +--------+ + +------+------+ | bacitracin (aka BACIIM) | Given | 03/20/19 | 100,000 | | Head | | injection INTRAPROCEDURE PRN, | | 13 8:00 | Units | | | | Starting 03/20/12 at 0800, | | AM PST | | | | | Until 03/20/12 at 1131 | | | | | | + +--------+ + +------+------+ +---+---+ | | | +---+---+ + +-------+ +---------+---+------+ | bacitracin ointment | Given | 03/20/19 | 1 strip | | Head | | INTRAPROCEDURE PRN, Starting Fri | | 13 8:00 | | | | | 03/20/12 at 0800, Until 03/20/12 | | AM PST | | | | | at 1131 | | | | | | + +-------+ +---------+---+------+ +---+---+ | | | +---+---+ + +-------+ +-------+---+------+ | bupivacaine-EPINEPHrine (aka | Given | 03/20/19 | 10 mL | | Head | | MARCAINE-EPINEPHRINE) 0.5 | | 13 8:00 | | | | | %-1:200,000 injection | | AM PST | | | | | INTRAPROCEDURE PRN, Starting Fri | | | | | | | 03/20/12 at 0800, Until 03/20/12 | | | | | | | at 1131 | | | | | | + +-------+ +-------+---+------+ +---+---+ | | | +---+---+ + +-------+ +--------+---+------+ | thrombin 5000 unit topical | Given | 03/20/19 | 5,000 | | Head | | solution INTRAPROCEDURE PRN, | | 13 8:00 | Units | | | | Starting 03/20/12 at 0800, | | AM PST | | | | | Until 03/20/12 at 1131 | | | | | | + +-------+ +--------+---+------+ +---+---+ | | | +---+---+ documented in this encounter
--- OUTSIDE RECORDS SUMMARY | ~2019-10-25 | XMS | Encounter Summary ---
Demographics + + + | Address | [address] | | | [place] [address] | + + + | Home Phone | | + + + | Preferred Language | Unknown | + + + | Marital Status | Single | + + + | Shinto Affiliation | NRP | + + + | Race | White | + + + | Ethnic Group | Not or | + + + Author + + + | Author | [facility] | + + + | Organization | [facility] | + + + | Address | Unknown | + + + | Phone | Unavailable | + + + Support + + + + + | Name | Relationship | Address | Phone | + + + + + | Malina Nicole | ECON | [phone] | | | | | [place] | | | | | [phone] | | + + + + + | Scott Mcgarry ECON | Unknown | | + + + + + Care Team Providers + +------+ + | Care Power Lineworker Name | Role | Phone | + [...] | | | [facility] [place], [place] | | | | | [facility], | [address] | | | | | [facility] | [phone] | | | | | floor [place], [place] | | | | | | [address] | | | | | | [phone] | | | +--------+ + + + [...] Tracy | | | | | | [place], [place] | | | | | | [address] | | | | | | [phone] | | | | | | | [...]
--- OUTSIDE RECORDS SUMMARY | ~2019-10-25 | XMS | Encounter Summary ---
Demographics + + + | Address | [address] | | | [place] [address] | + + + | Home Phone | | + + + | Preferred Language | Unknown | + + + | Marital Status | Single | + + + | Denominational Affiliation | NRP | + + + [...] [place] | | | | | [address] | | + + + + + | Scott Mcgarry ECON | Unknown | | + + + + + Care Team Providers + +------+ + | Care Tower Observer Name | Role | Phone | + [...] | | | | | [facility] | [place], [place] | | | | | Health and Healing, | [address] | | | | | [facility] | [phone] | | | | | floor [place], [place] | | | | | | [address] | | | | | | [phone] | | | +--------+ + + + [...] Tracy | | | | | | [facility] [place] | | | | | | [address] | | | | | | [phone] | | | | | | | | +--------+---------+ + + + documented as of this encounter Visit Diagnoses Not on filedocumented in this encounter"
--- OUTSIDE RECORDS SUMMARY | ~2019-10-25 | XMS | Encounter Summary ---
Demographics + + + | Address | [address] | | | [place] [address] | + + + | Home Phone [...] [place] | | | | | [address] | | + + + + + | Scott Mcgarry ECON | Unknown | | + + + + + Care Team Providers + +------+ + | Care Lead Burner Apprentice Name | Role | Phone | + [...] | | | | | subdural | [place], [place] | Hospital, | | | | | hematoma | [address] | 10th Floor | | | | | (HCC) | Phone: | [place], [place] | | | | | Procedures | [phone] | [address] | | | | | CT HEAD WO | Fax: | Phone: | | | | | CONTRAST | [phone] | [phone] | | | | | | | Fax: | | | | | | | [phone] | +--------+--------+ + + + + Reason [...] | | | | | subdural | [place], [place] | Hospital, | | | | | hematoma | [address] | 10th Floor | | | | | ([facility]) | Phone: | [place], [place] | | | | | Procedures | [phone] | [address] | | | | | CT HEAD WO | Fax: | Phone: | | | | | CONTRAST | [phone] | [phone] | | | | | | | Fax: | | | | | | | [phone] | +--------+--------+ + + + + Encounter [...] | | | Health and Healing, | [place], [place] | | | | | Building [address], [facility] | [address] | | | | | Floor [facility] [place] | [phone] | | | | | [address] | | | | | | [phone] | | | +--------+ + + + [...] | | 2020 | Visit | | [address] | | | | | | [place], [place] | | | | | | [address] | | | | | | [phone] | | | | | | | [...]
--- OUTSIDE RECORDS SUMMARY | ~2019-10-25 | XMS | Encounter Summary ---
Demographics + + + | Address | [address] | | | [place] [address] | + + + | Home Phone | | + + + | Preferred Language | Unknown | + + + | Marital Status | Single | + + + | Confucianist Affiliation | NRP | + + + [...] [place] | | | | | [address] | | + + + + + | Scott Nicole | ECON | Unknown | | + + + + + Care Team Providers + +------+ + | Care Roller Checker Name | Role | Phone | + [...] 2020 | | [address] Sena | [address] | [address] | | | | Rd [facility] Main | [place], [place] | [address] | | | | Hospital Admitting | [address] | REVISION, | | | | Desk Located on the | [phone] | | | | | 9th floor | | | | | | [place], [place] | | | | | | [address] | | | +--------+---------+ + + + [...] appetite Please call the neurosurgery clinic at [phone] if you have one or more of [...] in the morning had been told to [facility] by [place] [employer] and could not be called [...] Tracy | | | | | | [place], [place] | | | | | | [address] | | | | | | [phone] | | | | | | | [...] [facility] | [address] | [place] [address] | | | SERVICES, CORE | [address] [...] LABORATORY | [address] | [place] [address] | | | SERVICES, | [address] [...] MIRIAM SIDDIQI | [address] | [place] [address] | | | SERVICES, | [address] [...] | + + + + + | [facility] | [address] [facility] | [place] [address] | | | RYNE ARIAS | [address] [...] | | | LABORATORY | | | [place] | | | SERVICES, | | | [...] | 15 | 8 - 25 | [facility] | | | INE RATIO | | [...] | + + + + + | [facility] | [address] | [place] [address] | | | SERVICES, CORE | HAYDEE [...] JVAM | [address] | [place], [place] | | | BOB [facility] | [address] | [address] | | | TESTS | | | [...]
--- OUTSIDE RECORDS SUMMARY | ~2019-10-25 | XMS | Encounter Summary ---
Demographics + + + | Address | [address] | | | [place] [address] | + + + | Home Phone | | + + + | Preferred Language | Unknown | + + + | Marital Status | Single | + + + | Orthodox Affiliation | NRP | + + + [...] [place] | | | | | [address] | | + + + + + | Scott Mcgarry ECON | Unknown | | + + + + + Care Team Providers + +------+ + | Care Recovery Specialist Name | Role | Phone | [...] | | | | | Obstructive | Kristen Duran, | [address] | | | | | | [place] [address] | [address]on Sena | | | | | hydrocephalu | [address] | [address] [place] | | | | | s (HCC) | [place], [place] | Research | | | | | Procedures | [address] | Center | | | | | MRI BRAIN WO | Phone: | [place], [place] | | | | | AND CINE | [phone] | [address] | | | | | 3RD | Fax: | Phone: | | | | | [facility]EN[facility] | [phone] | [phone] | | | | | RITA | | Fax: | | | | | | | [phone] | +--------+--------+ + + + + Encounter Details +--------+ + + + + | Date | Type | Department | Care Team | Description | +--------+ + + + + | 05/05/ | Front Office Administrator | Neurosurgery at | Chang, | Obstructive | | 2016 | | [facility] [address] | REENA Hunter | hydrocephalus | | | | [facility] for | [address] | (Primary Dx) | | | | Health and Healing, | [place], [place] | | | | | [facility] | [address] | | | | | floor [place], [place] | [phone] | | | | | [address] | | | | | | [phone] | | | +--------+ + + + [...] | | 2019 | Visit | | [address] | | | | | | [place], [place] | | | | | | [address] | | | | | | [phone] | | | | | | | | +--------+---------+ + + + documented as of this encounter Results MRI BRAIN WO AND CINE 3RD VENTRICULOSTOMY (10/26/2015 2:52 PM PDT) + + + + + + | Component | Value | Ref Range | Performed | Pathologist | | | | | At | Signature | + + + + + + | MRI BRAIN | EXAM: MRI brain without | | | | | WO CONTRAST | and with contrast. CSF | | | | | AND CINE | and images were | | | | | 3RD | acquired. HISTORY: | | | | | VENTRICULOS | Hydrocephalus | | | | | DIANA | COMPARISON: MRI brain | | | | | | 08/05/2013 and | | | | | | 09/29/2014. TECHNIQUE: | | | | | | Multiplanar | | | | | | multi-sequence MRI of | | | | | | the brain without and | | | | | | withgadolinium based | | | | | | intravenous contrast. | | | | | | FINDINGS: Brain: Again | | | | | | noted is massive | | | | | | enlargement of the | | | | | | lateral ventricles, | | | | | | leftgreater than right. | | | | | | In the 3rd ventricle. | | | | | | There is associated | | | | | | extensive atrophyof the | | | | | | overlying brain without | | | | | | abnormal signal | | | | | | intensity. The 4th | | | | | | ventricle | | | | | | isdecompressed. High | | | | | | resolution images | | | | | | demonstrate stable | | | | | | stenosis/occlusion ofthe | | | | | | caudal aspect of the | | | | | | cerebral aqueduct. Again | | | | | | noted is abnormal | | | | | | inferiordescent of the | | | | | | floor of the 3rd | | | | | | ventricle which contacts | | | | | | the ventral surface | | | | | | ofthe distal basilar | | | | | | artery and needs to | | | | | | lateral displacement of | | | | | | small bilateraloptic | | | | | | nerves. There is also | | | | | | question of a small web | | | | | | or projecting along | | | | | | theanterior margin of | | | | | | the 3rd ventricle and | | | | | | the prepontine cistern, | | | | | | image 14,series 8. | | | | | | Posterior left frontal | | | | | | approach ventriculostomy | | | | | | tract, similar | | | | | | toprevious. No evidence | | | | | | of hemorrhage, mass, or | | | | | | acute infarction. No | | | | | | abnormalenhancement. | | | | | | Soft tissues and marrow: | | | | | | UnremarkableFace and | | | | | | orbits: Visualized | | | | | | portions are | | | | | | unremarkable | | | | | | IMPRESSION:Unchanged | | | | | | massive lateral and 3rd | | | | | | ventriculomegaly with | | | | | | aqueductal | | | | | | stenosis.There is a | | | | | | question of a small web | | | | | | in the prepontine | | | | | | cistern inferior to | | | | | | theventriculostomy site | | | | | | which could impede | | | | | | prepontine CSF flow. | | | | | | Attending Radiologists: | | | | | | ESTELA MORA, | | | | | | SRUTHIuthor: AVANI | | | | | | MD LJ I personally | | | | | [...] | | | | | | MORGAN 10/27/2015 9:56 | | | | | | AM Pending final | | | | | | approval / AVANI | | | | | | CALHOUN 10/27/2015 9:31 AM | | | | | | Preliminary / | | | | | | AVANI CALHOUN | | | | | | 10/27/2015 8:33 AM | | | | + + [...]
--- OUTSIDE RECORDS SUMMARY | ~2019-10-25 | XMS | Encounter Summary ---
Demographics + + + | Address | [address] | | | [place] [address] | + + + | Home Phone [...] [place] | | | | | [address] | | + + + + + | Scott Mcgarry ECON | Unknown | | + + + + + Care Team Providers + +------+ + | Care Cottage Attendant Name | Role | Phone | + +------+ + | Patricia Stevens | PCP | | + +------+ + Reason for Visit + + + | Reason | Comments | + + + | Pre-op evaluation | | + + + Encounter Details +--------+ + + + + | Date | Type | Department | Care Team | Description | +--------+ + + + + | 02/03/ | Telephone-S | Preoperative | | Pre-op evaluation | | 2015 | cheduled | Medicine Clinic at | | | | | | [facility] 4th Floor Day | | | | | | Stay [address] | | | | | [address] | | | | | | Mailcode: [id number] | | | | | | [facility] | | | | | | [address] [place], [place] | | | | | | [address] | | | | | | [phone] | | | +--------+ + + + [...] | | +--------+ + + + | Jamal | 02/07/15; Kamari; 16 Fr.; | 02/07/15 0000 by | 02/08/15 0410 by | | al | 02/08/15; 0410; Per order | Verenice Gonzalez RN | Ronda Jhonson RN | | Cathet | | | | | er | | | | +--------+ + + + | Periph | 02/07/15; 1003; Right; Forearm; | 02/07/15 1003 by | 02/08/15 0900 by | | eral | 22 g; Positive; 02/08/15; 0900; | Kanwal oJnes, | Verenice Gonzalez RN | | IV [...] of this encounter Patient Instructions Patient Instructions Lindsay Headley RN - 02/03/2015 10:31 AM PSTFormatting of this note m ight be different from the original. PREOPERATIVE INSTRUCTIONS Do not eat or drink anything after midnight the night before surgery. TAKE the following medications with a sip of water on the morning of surgery: LAMOTRIGINE 100 MG TABLET Take 100 mg by mouth two times daily. Do NOT take the following medications on the morning of surgery: MULTIVITAMIN ORAL Take by mouth once daily in the morning. VITAMIN B COMPLEX ORAL Take by mouth once daily in the morning. Unless Otherwise Directed by your Surgeon Do not take any Aspirin, vitamin E or non-ster oidal anti-inflammatory (NSAIDs i.e. Advil, Aleve, Ibuprofen) or herbal supplements seven da ys prior to your surgery. These drugs may interfere with normal blood clotting and may cause excessive bleeding and bruising during or after the surgery. If you are taking Coumadin (warfarin), Plavix or any other blood thinners please let you r surgical team know as medication changes will be necessary. If you need a pain medication for general purposes, use Tylenol as directed. If you are in doubt about any medications that you are taking, please contact our office . Important Guidelines Do not shave the surgical area Do not smoke, drink alcohol or use recreational drugs for 24 hours before your surgery Do not eat any hard candy or chew gum after midnight the night before your surgery. Watch for any change in your health condition. Let your surgeon know right away if you do not feel well. Do not wear makeup, perfume, lotions or powder. Remove any nail italian from at least one fingernail. Do not wear any jewelry to the hospital. Wear loose, comfortable clothing. Bring the case and solution for your contact lenses or wear your glasses. Leave all your valuables at home. Allow enough travel time so you re not late for your check in for surgery. Take a bath or shower and remember to shampoo your hair using your usual hair product be fore your arrival at the hospital. Please remember to brush your teeth the night before and the morning of your procedure. Surgery Check in Locations Admitting [facility] Surgery Check in Time: Someone from your surgeon's office or [facility] will provide you with information regarding your check in time. If you have any questions about this, pl ease contact your surgeon's office. Going Home Your surgical team will decide when you are medically ready to go home. If you are released to go home on the same day as your procedure/surgery please note the following: You will not be able to drive. You will be required to have a competent adult drive you or accompany you by taxi or pub lic transportation on the day of discharge. It is also required that you have a competent adult assist you and look after you on the first night after you have undergone regional blocks (72 hours for patients going home with regional block pump), deep sedation, and/or general anesthesia. If you stayed in the hospital after surgery, please arrange for your ride to come for yo u around 9AM on the day your doctor says you can go home. Check out time is 11AM. If you have questions or concerns after you go home, call your doctor s office. If it is after office hours, call the [facility] dielectric machine operator at [phone] and ask them to page your doc tor. documented in this encounter Plan of Treatment +--------+---------+ + + + | Date | Type | Specialty | Care Team | Description | +--------+---------+ + + + | 11/24/ | Office | Neurological Surgery | Nolvia Delgado, | | | 2019 | Visit | | [address] | | | | | | [place], [place] | | | | | | [address] | | | | | | [phone] | | | | | | | | +--------+---------+ + + + documented as of this encounter Visit Diagnoses Not on filedocumented in this encounter"
--- OUTSIDE RECORDS SUMMARY | ~2019-10-25 | XMS | Encounter Summary ---
Demographics + + + | Address | [address] | | | [place] [address] | + + + | Home Phone | | + + + | Preferred Language | Unknown | + + + | Marital Status | Single | + + + | Muslim Affiliation | NRP | + + + | Race | White | + + + | Ethnic Group | Not or | + + + Author + + + | Author | [facility] | + + + | Organization | [facility] | + + + | Address | Unknown | + + + | Phone | Unavailable | + + + Support + + + + + | Name | Relationship | Address | Phone | + + + + + | Malina Nicole | ECON | [address] | | | | | [place] | | | | | [address] | | + + + + + | Scott Nicole | ECON | Unknown | | + + + + + Care Team Providers + +------+ + | Care Monkey Breeder Name | Role | Phone | + [...] [address] | | | | | [id number] | [place], [place] | | | | | [place], | [address] | | | | | [place] [address] | [phone] | | | | | [phone] | | | +--------+ + + + [...] appetite Please call the neurosurgery clinic at [phone] if you have one or more of [...] or concerns. Discharge Instr - Electronic Signature Hmea Ruiz MD - 04/23/2019 3:10 PM PSTAfter [...] the morning had been told to [facility] by [place] [employer] and could not be called [...] [address] | | | | | | [place], [place] | | | | | | [address] | | | | | | [phone] | | | | | | | [...] [facility] | [address] | [place] [address] | | | JUANA, CORE | PARK [...] [facility] | [address] | [place] [address] | | | SERVICES, | [address] [...] | + + + + + | [facility] | [address] | [place] [address] | | | SERVICES, | [address] [...] | + + + + + | [facility] | [address] | [place] [address] | | | SERVICES, CORE | [address] [...] | | | LABORATORY | | | [place] | | | SERVICES, | | | [...] | + + + + + | [facility] | [address] | [place] [address] | | | SERVICES, CORE | [address] [...] [facility] | [address] | [place], [place] | | | BOB POINT [facility] CARE | [address] | [address] | | | TESTS | | | [...]
--- OUTSIDE RECORDS SUMMARY | ~2019-10-25 | XMS | Encounter Summary ---
Demographics + + + | Address | [address] | | | [place] [address] | + + + | Home Phone [...] Author | [facility] | + + + | Organization | [facility] | + + + | Address | Unknown | + + + | Phone | Unavailable | + + + Support + + + + + | Name | Relationship | Address | Phone | + + + + + | Malina Nicole | ECON | [address] | | | | | [place] | | | | | [address] | | + + + + + | Scott Mcgarry ECON | Unknown | | + + + + + Care Team Providers + +------+ + | Care Sternman Name | Role | Phone | + [...] Closed | | Physical | Diagnoses | DeDeaux, | | | | | Therapy | | Jeannine H, | | | | | | Hydrocephalu | PA-C [address] | | | | | | s (HCC) | [address] | | | | | | Procedures | [address] | | | | | | PHYSICAL | Rd | | | | | | THERAPY | [place], [place] | | | | | | REFERRAL | [address] | | +--------+--------+ + + + + Diagnostic Testing (Urgent) +--------+--------+ + + + + | Status | Reason | Specialty | Diagnoses / | Referred By | Referred To | | | | | Procedures | Contact | Contact | +--------+--------+ + + + + | Closed | | Radiology | Diagnoses | DeDeaux, | | | | | | | Jeannine H, | | | | | | Hydrocephalu | PA-C [address] | | | | | | s (HCC) | [address] | | | | | | Procedures | [address] | | | | | | CT HEAD WO | Rd | | | | | | CONTRAST | [place], [place] | | | | | | | [address] | | +--------+--------+ + + + + Reason for Visit + + + | Reason | Comments | + + + | Return Patient | post op | + + + Encounter Details +--------+---------+ + + + | Date | Type | Department | Care Team | Description | +--------+---------+ + + + | 11/29/ | Office | Neurosurgery at | Jeannine Hebert | Hydrocephalus | | 2016 | Visit | [facility] | H, PAElmerC | (Primary Dx) | | | | and Healing [address] | | [address] | [address] [facility] | | | | | | Health and Healing, | | | | | | Building , | | | | | | Floor [place], [place] | | | | | | [address] | | | | | | [phone] | | | +--------+---------+ + + + [...] + + + | Blood Pressure | 126/98 | 11/30/2015 3:47 PM | | | | | PDT | | + + + + + | Pulse | 78 | 11/30/2015 3:47 PM | | | | | PDT | | + + + + + | Temperature | 36.7 C (98 F) | 11/30/2015 3:47 PM | | | | | PDT [...] + documented in this encounter Progress Notes Jeannine Hebert PA-C - 11/30/2015 4:35 PM PDTFormatting of this note might be differen t from the original. POST OP VISIT Subjective: Rin Casas presents to clinic today for a routine post-operative visit af ter undergoing a Stealth-guided right occipital ventriculoperitoneal shunt with Strata valve set at 2.0 on 11/08/15 due to hydrocephalus. The patient states she is doing well, but "havi ng trouble with right side". She states right sided weakness onset one week ago, sudden onse t. Denies headache, nausea/vomiting, vision changes, mentation changes, slurred speech, and facial droop. The patient is pleased with the outcome of the surgery. Objective: BP 126/98 | Pulse 78 | Temp (Src) 36.7 C (98 F) (Oral) General: NAD Neuro: A+O x 3. 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 Gaze conjugate. EOMI. PERRL. Face symme tric. Tongue midline. Incision: C/D/I, no erythema or edema, dissolvable sutures Motor: Learning And Development Manager Bicep Tricep Delt R 4+ 4+ 4+ 5 L 5 5 5 5 SILT in BLE and BUE Imaging: EXAM: CT HEAD WITHOUT CONTRAST 11/30/15 HISTORY: Hydrocephalus COMPARISON: 11/09/15 TECHNIQUE: CT images of the brain from skull base to vertex were obtained without contrast. FINDINGS: Brain: Again noted is the right posterior approach ventriculoperitoneal shunt which is unchanged in position. Lateral and third ventriculomegaly is again noted. The degree of enlargement is essentially unchanged from the prior study. There is no evidence of hemorrhage, mass or acute infarction. No new abnormalities identified. IMPRESSION: Stable ventriculomegaly with right posterior approach ventriculoperitoneal shunt. Attending Radiologists: ADRIANA HILL MD Author: ADRIANA HILL MD I personally reviewed the images and, if necessary, edited the report. I agree with the report as now presented. Assesment: Rin Casas is a 45 y.o. female s/p Stealth-guided right occipital ventricul operitoneal shunt with Strata valve set at 2.0 on 11/08/15 due to hydrocephalus. + right side d weakness onset one week ago. Denies any other symptoms such as nausea/vomiting, mentation change, headache, and change in vision. Incision intact. Plan: - Incision healing very well. - CT Head today - no evidence of acute bleeding or stroke, hydrocephalus stable. - Monitor RUE weakness. - External PT script given. - Pain medication: None given. - Do not soak incision for one month post-op - RTC PRN. Should the patient have any questions or concerns prior to their next visit the y will contact the clinic. NEUROSURGERY AT [place] [address] Mailcode: [id number] [id number] documented in th is encounter Plan of Treatment +--------+---------+ + + + | Date | Type | Specialty | Care Team | Description | +--------+---------+ + + + | 11/24/ | Office | Neurological Surgery | Nolvia Delgado, | | | 2019 | Visit | | [address] | | | | | | [place], [place] | | | | | | [address] | | | | | | [phone] | | | | | | | | +--------+---------+ + + + documented as of this encounter Procedures + +--------+ + + + | Procedure Name | Priori | Date/Time | Associated Diagnosis | Comments | | | ty | | | | + +--------+ + + + | ORDERS OTHER | | 11/30/2015 | | Results for this | | | | 12:00 AM | | procedure are in the | | | | PDT | | results section. | + +--------+ + + + documented in this encounter Results CT HEAD WO CONTRAST (11/30/2015 4:18 PM PDT) + + + + + + | Component | Value | Ref Range | Performed | Pathologist | | | | | At | Signature | + + + + + + | CT HEAD WO | EXAM: CT HEAD WITHOUT | | | | | CONTRAST | CONTRAST HISTORY: | | | | | | Hydrocephalus | | | | | | COMPARISON: 11/09/15 | | | | | | TECHNIQUE: CT images | | | | | | of the brain from skull | | | | | | base to vertex were | | | | | | obtainedwithout | | | | | | contrast. FINDINGS: | | | | | | Brain: Again noted is | | | | | | the right posterior | | | | | | approach | | | | | | ventriculoperitoneal | | | | | | shuntwhich is unchanged | | | | | | in position. Lateral and | | | | | | third ventriculomegaly | | | | | | is againnoted. The | | | | | | degree of enlargement is | | | | | | essentially unchanged | | | | | | from the prior study. | | | | | | There is no evidence of | | | | | | hemorrhage, mass or | | | | | | acute infarction. No | | | | | | newabnormalities | | | | | | identified. | | | | | | IMPRESSION:Stable | | | | | | ventriculomegaly with | | | | | | right posterior approach | | | | | | | | | | | | ventriculoperitonealshun | | | | | | t. Attending | | | | | | Radiologists: ADRIANA | | | | | | SRUTHI HILLuthor: | | | | | | ADRIANA HILL MD I | | | | | | personally reviewed the | | | | | | images and, if | | | | | | necessary, edited the | | | | | | report. I agreewith the | | | | | | report as now presented. | | | | | | | | | | | | Final/Electronically | | | | | | ronny / ADRIANA | | | | | | LIZ 11/30/2015 | | | | | | 19:28 PM | | | | + + [...] | | | + +---------+ + + ORDERS OTHER (11/30/2015 12:00 AM PDT) + + + | Narrative | Performed At | + + + | | | + + + documented in this encounter Visit Diagnoses + + | Diagnosis | + + | Hydrocephalus (HCC) - Primary Obstructive hydrocephalus | + + documented in this encounter
--- OUTSIDE RECORDS SUMMARY | ~2019-10-25 | XMS | Encounter Summary ---
Demographics + + + | Address | [address] | | | [place] [address] | + + + | Home Phone | | + + + | Preferred Language | Unknown | + + + | Marital Status | Single | + + + | Buddhist Affiliation | NRP | + + + | Race | White | + + + | Ethnic Group | Not or | + + + Author + + + | Author | [facility] | + + + | Organization | [facility] | + + + | Address | Unknown | + + + | Phone | Unavailable | + + + Support + + + + + | Name | Relationship | Address | Phone | + + + + + | Malina Nicole | ECON | [address] | | | | | [place] | | | | | [address] | | + + + + + | Scott Nicole | ECON | Unknown | | + + + + + Care Team Providers + +------+ + | Care Assembly Room Supervisor Name | Role | Phone | [...] Closed | | Neurological | Diagnoses | [place], | [place], | | | | Surgery | | Rochelle Apple MD | Nolvia Liang MD | | | | | Hydrocephalu | [address] | [address] | | | | | s, | [address] | Ave | | | | | unspecified | [address] | [place], [place] | | | | | Procedures | [place] | [address] | | | | | REQUEST TO | [address] | Phone: | | | | | SURGERY | Phone: | [phone] | | | | | STATUARY PAINTER | [phone] | Fax: | | | | | MD | Fax: | [phone] | | | | | REPLACEMENT/ | [phone] | | | | | | REVISION,CSF | | | | | | | SHUNT MD | | | | | | | REPLACE/IRRI | | | | | | | GATE VENTRIC | | | | | | | CATH MD | | | | | | | REMOVE & | | | | | | | REPLACE CSF | | | | | | | SHUNT | | | +--------+--------+ + + + [...] | | | | | hydrocephalu | [facility] | Ave | | | | | s ([facility]) | [facility] | [place], [place] | | | | | Procedures | Rd | [address] | | | | | MD EST | [place], [place] | Phone: | | | | | PATIENT | [id number] | [phone] | | | | | LEVEL V MD | Phone: | Fax: | | | | | REPROGRAMMIN | [phone] | [phone] | | | | | G,PROGRAMMAB | Fax: | | | | | | LE CSF SHUNT | [phone] | | +--------+--------+ + + + + Encounter Details +--------+---------+ + + + | Date | Type | Department | Care Team | Description | +--------+---------+ + + + | 12/31/ | Office | Neurosurgery at | Nolvia Delgado, | Hydrocephalus, | | 2019 | Visit | [facility] [address] | MD [address] | unspecified type | | | | Ave Center for | [place], [place] | ([facility]) (Primary Dx) | | | | Health and Healing, | [address] | | | | | [facility] | [phone] | | | | | [place], [place] | | | | | | [address] | | | | | | [phone] | | | +--------+---------+ + + + [...] + + + | Blood Pressure | 116/68 | 12/31/2018 12:10 PM | | | | | PDT [...] + + + + | Weight | 109.8 kg (242 lb) | 12/31/2018 12:10 PM | | | | | PDT | | + + + + + | Height | 171.5 cm (5' 7.5") | 12/31/2018 12:10 PM | | | | | PDT | | + + + + + | Body Mass Index | 37.34 | 12/31/2018 12:10 PM | | | | | PDT [...] + documented as of this encounter Progress Rochelle Owusu MD - 12/31/2018 12:15 PM PDTFormatting of this note might be different fro m the original. NEUROSURGERY NEW PATIENT CLINIC VISIT HPI: Rin Casas is a 48 y.o. female with history of spastic cerebral palsy, low vision bila terally, seizure disorder s/p VNS, and hydrocephalus with a right occipital strata valve. Rommel hassan also has a history of subdural hematoma, for which her valve was previously turned up to 2 .5. She has had a significant decline since her appointment in June. Her coordination has d ramatically worsened. She now has to use a wheelchair at all times, and cannot even mobilize to the toilet. Her valve was to be set to 1.5 in June. On checking it today, it was at 2.0 . The valve, after multiple tries, was unable to be changed. Her mom notes that she had a marquez rd fall right on her shunt after her June appointment, and another bad fall about 2 weeks a go. She denies headache. Baseline poor vision. Her CT head is stable. PMH: Past Medical History: Diagnosis Date Blindness of both eyes, impairment level not further specified Cerebral palsy (HCC) Epilepsy, partial (HCC) H/O hydrocephalus Legally blind S/P placement of VNS (vagus nerve stimulation) device 2000 Seizures (HCC) Spastic quadriparesis (HCC) PSH: Past Surgical History Procedure Laterality Date Ankle surgery Ventriculostomy Implantation of vagal nerve stimulator 2000 Creation of aime hole on both sides 09/20/2016 for Chronic SDH MEDS: Current Outpatient Medications on File Prior to Visit Medication Sig Dispense Refill acetaminophen 325 mg oral tablet Take 2 tablets by mouth every six hours as needed (carmita n). Not to exceed 3250 mg of acetaminophen from all products per 24 hour period. baclofen 10 mg oral tablet Take 1 tablet by mouth once daily in the morning. Indication s: Muscle Spasms caused by a Spinal Disease 30 tablet 3 lamoTRIgine 100 mg Oral tablet Take 100 mg by mouth two times daily. multivitamin oral tablet Take 1 tablet by mouth once daily. No current facility-administered medications on file prior to visit. ALLERGIES: Allergies No Known Allergies PHYSICAL EXAM: BP 116/68 (BP Location: Left upper arm, Patient Position: Sitting) | Ht 1.715 m (5' 7.5") | Wt 109.8 kg (242 lb) | BMI 37.34 kg/m | BSA 2.29 m Awake, alert, answers simple questions appropriately Blind bilaterally Face symmetric, TML Face sensation intact Strong, symmetric shoulder shrug No pronator drift No FTN dysmetria Moves symmetrically antigravity throughout Sensation intact to light touch IMAGIN08/27/18 CT ASSESSMENT AND PLAN: Rin Caass is a 48yo lady with history of cerebral palsey and shunted hydrocephalus. H er valve appears to be broken at this time, and she has had a slow, very significant functio nal decline. We will plan on doing a valve replacement, changing to a Hakim valve that has m any more setting options. -Consult to [place] for shunt revision (likely valve change) Rochelle Ruiz MD Neurosurgery, PGY-7 This patient has been seen and discussed with , who agrees with the above assessme nt and plan. Associated attestation - Nolvia Delgado MD - 01/01/2019 7:50 AM PDTI performed a history and physical examination of the patient and discussed her management with the resident. I reviewed the resident s note and agree with the documented findings and plan of care. MD Nolvia Sanz MD NEUROSURGERY AT [facility] [address] Mailcode: [id number] [address] documented in this encounter Plan of Treatment +--------+---------+ + + + | Date | Type | Specialty | Care Team | Description | +--------+---------+ + + + | 11/24/ | Office | Neurological Surgery | Nolvia Delgado, | | | 2019 | Visit | | MD [address] | | | | | | [place], [place] | | | | | | [address] | | | | | | [phone] | | | | | | | | +--------+---------+ + + + documented as of this encounter Visit Diagnoses + + | Diagnosis | + + | Hydrocephalus, unspecified type (HCC) - Primary | + + documented in this encounter
--- OUTSIDE RECORDS SUMMARY | ~2019-10-25 | XMS | Encounter Summary ---
Demographics + + + | Address | [address] | | | [place] [address] | + + + | Home Phone | | + + + | Preferred Language | Unknown | + + + | Marital Status | Single | + + + | Synagogue Affiliation | NRP | + + + | Race | White | + + + | Ethnic Group | Not or | + + + Author + + + | Author | [facility] | + + + | Organization | [facility] | + + + | Address | Unknown | + + + | Phone | Unavailable | + + + Support + + + + + | Name | Relationship | Address | Phone | + + + + + | Malina Nicole | ECON | [address] | | | | | [place] | | | | | [address] | | + + + + + | Scott Mcgarry ECON | Unknown | | + + + + + Care Team Providers + +------+ + | Care Electric Lift Truck Driver Name | Role | Phone | + [...] | +--------+ + + + + | 03/20/ | Anesthesia | 6A Intra Op [id number] | Beatriz Crow MD | | | 2012 | Event | [facility] | Jennifer Santiago | | | | | Boris Shahid | | | | | | Hospital Admitting | | | | | | Desk Located on the | | | | | | 9th floor | | | | | | [place], [place] | | | | | | [address] | | | +--------+ + + + + Anesthesia Record + + + + + | Procedure Name | Responsible | Anesthesia Start | Anesthesia Stop Time | | | Anesthesiologist | Time | | + + + + + | STEALTH-GUIDED | Beatriz Crow MD | 03/20/12 0726 | 03/20/12 1030 | | ENDOSCOPIC THIRD | | | | | VENTRICULOSTOMY WITH | | | | | EXTERNAL | | | | | VENTRICULAR DRAIN | | | | | (Right Head) | | | | + + + + + +----+---+ + + | Da | T | Event | Comment | | te | i | | | | | m | | | | | e | | | +----+---+ + + | 01 | 0 | Eq Check | Anesthesia machine checked Equipment verified | | /0 | 6 | | | | 4/ | 3 | | | | 20 | 7 | | | | 13 | | | | +----+---+ + + | | 0 | | | | | 7 | | | | | 2 | | | | | 0 | | | +----+---+ + + | | 0 | Pt. Check | Prior to anesthesia start, pt. Identified, examined, chart | | | 7 | | reviewed, JOCELYNN held, anesthetic plan made or approved by | | | 2 | | attending anesthesiologist. NPO status confirmed as appropriate | | | 0 | | for procedure Preoperative evaluation: unchanged | +----+---+ + + | | 0 | Preprocedur | Pt ID confirmed, informed consent obtained, insertion site | | | 7 | e Checklist | marked, equipment available | | | 2 | | | | | 0 | | | +----+---+ + + | | 0 | An Start | | | | 7 | | | | | 2 | | | | | 6 | | | +----+---+ + + | | 0 | An Start | | | | 7 | Data | | | | 3 | | | | | 0 | | | +----+---+ + + | | 0 | An Data Art | Pt bending arm during BP measurement | | | 7 | | | | | 3 | | | | | 5 | | | +----+---+ + + | | 0 | Vitals | Monitors applied Vital signs checked Patient ready for anesthesia | | | 7 | Checked | | | | 3 | | | | | 8 | | | +----+---+ + + | | 0 | Std. Airway | | | | 7 | Mgt. | | | | 4 | | | | | 4 | | | +----+---+ + + | | 0 | Ready | | | | 7 | | | | | 4 | | | | | 5 | | | +----+---+ + + | | 0 | Quick Note | Head pinned | | | 7 | | | | | 5 | | | | | 8 | | | +----+---+ + + | | 0 | Abx | | | | 8 | Administere | | | | 0 | d | | | | 1 | | | +----+---+ + + | | 0 | Timeout | | | | 8 | | | | | 1 | | | | | 7 | | | +----+---+ + + | | 0 | Incision | | | | 8 | | | | | 3 | | | | | 7 | | | +----+---+ + + | | 1 | Surgery end | | | | 0 | | | | | 0 | | | | | 9 | | | +----+---+ + + | | 1 | Quick Note | Suctioned ETT | | | 0 | | | | | 1 | | | | | 2 | | | +----+---+ + + | | 1 | An Extubate | Neuromuscular function Intact. Pharynx suctioned. Patient obeys | | | 0 | | commands. Adequate pulmonary mechanics. | | | 1 | | | | | 5 | | | +----+---+ + + | | 1 | an stop | | | | 0 | data | | | | 2 | | | | | 0 | | | +----+---+ + + | | 1 | Anesthesia | | | | 0 | End | | | | 3 | | | | | 0 | | | +----+---+ + + +------+ | Meds | +------+ + + + | Name | Total | + + + | alfentanil | 1,000 mcg | + + + | ceFAZolin | 2,000 mg | + + + | propofol | 220 mg | + + + | lidocaine 2% | 100 mg | + + + | fentaNYL | 350 mcg | + + + | rocuronium | 80 mg | + + + | ondansetron | 4 mg | + + + | neostigmine | 4 mg | + + + | glycopyrrolate | 0.6 mg | + + + | LR | 900 mL | + + + | NS | 800 mL | + + + + + | Name | + + | Insp Vic | + + | Et Vic | + + | O2 Flow Rate (Total Liters) | + + | Air Flow rate (L/min) | + + + + | No blood administrations on file. | + + +--------+ + + + | Type | Details | Placement | Removal | +--------+ + + + | RETIRE | 02/03/12; 1030; lower, medial; | 02/03/12 1030 by | 11/08/15 1210 by | | D - | spine- lumbar; puncture; | Norma Romero RN | Kmi Zavala RN | | Wound | 11/08/15; 1210 | | | +--------+ + + + | RETIRE | 03/20/12 (intraop); 03/22/12; | 03/20/12 0000 by | 03/22/12 1230 by | | D - | 1230; (EVD) Ventriculostomy; | Sussy Honeycutt, | Reta Daniel RN | | CSF | Left, Frontal | RN | | | Cathet | | | | | er | | | | +--------+ + + + | RETIRE | 03/20/12; 0630; 03/22/12; 0502; | 03/20/12 0630 by | 03/22/12 0502 by | | D - | 20; Left; Hand; Positive | Brittany Sewell RN | Oneil Galindo CRNA | | Periph | | | | | eral | | | | | Line | | | | +--------+ + + + | RETIRE | 03/20/12; 0749; 03/20/12; 1020; | 03/20/12 0749 by | 03/20/12 1020 by | | D - | Kamari; 16FR; yes (clear yellow | Bel Lorenzo RN | Bel Lorenzo RN | | Urinar | urine) | | | | y Cath | | | | | | | | | | Placem | | | | | ent | | | | | (Lani | | | | | & Cath | | | | | Care | | | | | Daily | | | | | and Q | | | | | BM) | | | | +--------+ + + + | RETIRE | 03/23/12; 0859; No; 18; Right; | 03/20/12810 by | 03/23/12858 by | | D - | Hand | | Gladis Hunt RN | | Periph | | | | | eral | | | | | Line | | | | +--------+ + + + | RETIRE | 03/20/12; 837; Left:; parietal | 03/20/12837 by | 03/24/12 113 by | | D - | region; 03/24/12; 113 | Bel Lorenzo RN | Jaimee Parker | | Andrei | | | ART | | on | | | | [...] [address] | | | | | | [place], [place] | | | | | | [address] | | | | | | [phone] | | | | | | | | +--------+---------+ + + + documented as of this encounter Visit Diagnoses Not on filedocumented in this encounter Administered Medications + +--------+ +--------+------+------+ | Medication Order | MAR | Action | Dose | Rate | Site | | | Action | Date | | | | + +--------+ +--------+------+------+ | alfentanil (aka ALFENTA) | Given | 03/20/19 | 1,000 | | | | injection INTRAPROCEDURE PRN, | | 13 7:56 | mcg | | | | Starting Fri03/20/12 at 0756, | | AM PST | | | | | Until Fri03/20/12 at 1030 | | | | | | + +--------+ +--------+------+------+ +---+---+ | | | +---+---+ + +-------+ + +---+---+ | ceFAZolin (aka ANCEF) injection | Given | 03/20/19 | 2,000 mg | | | | intravenous, INTRAPROCEDURE | | 13 8:01 | | | | | PRN, Starting Fri03/20/12 at 0801, | | AM PST | | | | | Until Fri03/20/12 at 1030 | | | | | | + +-------+ + +---+---+ +---+---+ | | | +---+---+ + +-------+ +--------+---+---+ | fentaNYL citrate (PF) (aka | Given | 03/20/19 | 25 mcg | | | | SUBLIMAZE) injection | | 13 10:04 | | | | | INTRAPROCEDURE PRN, Starting Fri | | AM PST | | | | | 03/20/12 at 0744, Until 03/20/12 | | | | | | | at 1030, sedation | | | | | | + +-------+ +--------+---+---+ +-------+ +--------+---+---+ | Given | 03/20/19 | 25 mcg | | | | | 13 10:03 | | | | | | AM PST | | | | +-------+ +--------+---+---+ | Given | 03/20/19 | 50 mcg | | | | | 13 9:52 | | | | | | AM PST | | | | +-------+ +--------+---+---+ +---+---+ | | | +---+---+ + +-------+ +--------+---+---+ | glycopyrrolate (aka RJ) | Given | 03/20/19 | 0.6 mg | | | | injection INTRAPROCEDURE PRN, | | 13 10:00 | | | | | Starting 03/20/12 at 1000, | | AM PST | | | | | Until 03/20/12 at 1030 | | | | | | + +-------+ +--------+---+---+ +---+---+ | | | +---+---+ + + + +----+---+---+ | lactated ringers IV | given by | 03/20/19 | mL | | | | INTRAPROCEDURE CONTINUOUS PRN, | | 13 9:55 | | | | | Starting 03/20/12 at 0720, | anesthes | AM PST | | | | | Until 03/20/12 at 1030 | iology | | | | | + + + +----+---+---+ + + +----+---+---+ | given by anesthesiology | 03/20/19 | mL | | | | | 13 8:58 | | | | | | AM PST | | | | + + +----+---+---+ | New Bag | 03/20/19 | mL | | | | | 13 7:20 | | | | | | AM PST | | | | + + +----+---+---+ +---+---+ | | | +---+---+ + +-------+ +--------+---+---+ | lidocaine (aka XYLOCAINE MPF) | Given | 03/20/19 | 100 mg | | | | 20 mg/mL (2 %) injection | | 13 7:44 | | | | | INTRAPROCEDURE PRN, Starting Fri | | AM PST | | | | | 03/20/12 at 0744, Until 03/20/12 | | | | | | | at 1030 | | | | | | + +-------+ +--------+---+---+ +---+---+ | | | +---+---+ + + + +----+---+---+ | NaCl 0.9 % IV INTRAPROCEDURE | given by | 03/20/19 | mL | | | | CONTINUOUS PRN, Starting Fri | | 13 9:55 | | | | | 03/20/12 at 0747, Until 03/20/12 | anesthes | AM PST | | | | | at 1030 | iology | | | | | + + + +----+---+---+ + + +----+---+---+ | given by anesthesiology | 03/20/19 | mL | | | | | 13 8:58 | | | | | | AM PST | | | | + + +----+---+---+ | New Bag | 03/20/19 | mL | | | | | 13 7:47 | | | | | | AM PST | | | | + + +----+---+---+ +---+---+ | | | +---+---+ + +-------+ +------+---+---+ | neostigmine (aka PROSTIGMIN) | Given | 03/20/19 | 4 mg | | | | injection intravenous, | | 13 10:00 | | | | | INTRAPROCEDURE PRN, Starting Fri | | AM PST | | | | | 03/20/12 at 1000, Until 03/20/12 | | | | | | | at 1030 | | | | | | + +-------+ +------+---+---+ +---+---+ | | | +---+---+ + +-------+ +------+---+---+ | ondansetron (karma PARMAR) | Given | 03/20/19 | 4 mg | | | | injection INTRAPROCEDURE PRN, | | 13 9:55 | | | | | Starting Fri03/20/12 at 0955, | | AM PST | | | | | Until Fri03/20/12 at 1030 | | | | | | + +-------+ +------+---+---+ +---+---+ | | | +---+---+ + +-------+ +-------+---+---+ | propofol INTRAPROCEDURE PRN, | Given | 03/20/19 | 20 mg | | | | Starting 03/20/12 at 0744, | | 13 10:03 | | | | | Until Fri03/20/12 at 1030 | | AM PST | | | | + +-------+ +-------+---+---+ +-------+ +--------+---+---+ | Given | 03/20/19 | 50 mg | | | | | 13 7:54 | | | | | | AM PST | | | | +-------+ +--------+---+---+ | Given | 03/20/19 | 150 mg | | | | | 13 7:44 | | | | | | AM PST | | | | +-------+ +--------+---+---+ +---+---+ | | | +---+---+ + +-------+ +-------+---+---+ | rocuronium (aka ZEMURON) | Given | 03/20/19 | 20 mg | | | | injection INTRAPROCEDURE PRN, | | 13 8:16 | | | | | Starting Fri03/20/12 at 0744, | | AM PST | | | | | Until Fri03/20/12 at 1030, | | | | | | | Neuromuscular block | | | | | | + +-------+ +-------+---+---+ +-------+ +-------+---+---+ | Given | 03/20/19 | 60 mg | | | | | 13 7:44 | | | | | | AM PST | | | | +-------+ +-------+---+---+ +---+---+ | | | +---+---+ documented in this encounter"
--- OUTSIDE RECORDS SUMMARY | ~2019-10-25 | XMS | Encounter Summary ---
Demographics + + + | Address | [address] | | | [place] [address] | + + + | Home Phone [...] Author + + + | Author | [facility] | + + + | Organization | [facility] | + + + | Address | Unknown | + + + | Phone | Unavailable | + + + Support + + + + + | Name | Relationship | Address | Phone | + + + + + | Malina Nicole | ECON | [address] | | | | | [place] | | | | | [address] | | + + + + + | Scott Mcgarry ECON | Unknown | | + + + + + Care Team Providers + +------+ + | Care Director Cardiology Name | Role | Phone | + [...] | +--------+ + + + + | 09/13/ | Telephone-S | Preoperative | | Pre-op evaluation | | 2013 | cheduled | Medicine Clinic at | | | | | | [facility] 4th Floor Day | | | | | | Stay [address] | | | | [address] | | | | | | Mailcode: [id number] | | | | | | [facility] | | | | | | [address] [place], [place] | | | | | | [address] | | | | | | [phone] | | | +--------+ + + + [...] 20g R Wrist; 20; Right; | Eun Grubbs RN | Malou Ch RN | | [...] of this encounter Patient Instructions Patient Instructions Rebeca Loya RN - 09/13/2013 2:10 PM PDT PREOPERATIVE INSTRUCTIONS Do not eat or drink anything after midnight the night before surgery. TAKE the following medications with a sip of water on the morning of surgery: LAMOTRIGINE 100 MG TABLET Do NOT take the following medications on the morning of surgery: MULTIVITAMIN ORAL VITAMIN B COMPLEX ORAL Do not take any Aspirin, vitamin E or non-steroidal anti-inflammatory (NSAIDs i.e. Advil , Aleve, Ibuprofen) or herbal supplements seven days prior to your surgery. These drugs [...] perfume, lotions or powder. Remove any nail belarusian from at least one fingernail. Do not [...] your procedure. Surgery Check in Locations Admitting [facility], [facility] Surgery Check in Time: Someone from your surgeon's office or [facility] will provide you with information regarding [...] deep sedation, and/or general anesthesia. If you have questions or concerns after you go home, call your doctor s office. If it is after office hours, call the [facility] verifier operator at [phone] and ask them to page your doc tor. documented in this encounter Plan of Treatment +--------+---------+ + + + | Date | Type | Specialty | Care Team | Description | +--------+---------+ + + + | 11/24/ | Office | Neurological Surgery | Nolvia Delgado, | | | 2019 | Visit | | [address] | | | | | | [place], [place] | | | | | | [address] | | | | | | [phone] | | | | | | | | +--------+---------+ + + + documented as of this encounter Visit Diagnoses Not on filedocumented in this encounter"
--- OUTSIDE RECORDS SUMMARY | ~2019-10-25 | XMS | Encounter Summary ---
Demographics + + + | Address | [address] | | | [place] [address] | + + + | Home Phone | | + + + | Preferred Language | Unknown | + + + | Marital Status | Single | + + + | Restoration Affiliation | NRP | + + + | Race | White | + + + | Ethnic Group | Not or | + + + Author + + + | Author | [facility] | + + + | Organization | [facility] | + + + | Address | Unknown | + + + | Phone | Unavailable | + + + Support + + + + + | Name | Relationship | Address | Phone | + + + + + | Malina Nicole | ECON | [address] | | | | | [place] | | | | | [address] | | + + + + + | Scott Mcgarry ECON | Unknown | | + + + + + Care Team Providers + +------+ + | Care Air Bag Buffer Name | Role | Phone | + [...] [facility] | | | | | Congenital | Kristen E, | [address] | | | | | hydrocephalu | [place] [address] | [address] | | | | | s (HCC) | [address] | [address] | | | | | Procedures | [place], [place] | Research | | | | | MRI BRAIN WO | [address] | Center | | | | | CONTRAST | Phone: | [place], [place] | | | | | | [phone] | [address] | | | | | | Fax: | Phone: | | | | | | [phone] | [phone] | | | | | | | Fax: | | | | | | | [phone] | +--------+--------+ + + + + Encounter Details +--------+ + + + + | Date | Type | Department | Care Team | Description | +--------+ + + + + | 09/29/ | Hospital | Radiology/Imaging | | Canceled (Provider | | 2014 | Encounter | Lab at [facility] [address] | | Request) | | | | [facility], | | | | | | Building | | | | | | Floor [place], [place] | | | | | | [address] | | | | | | [phone] | | | +--------+ + + + [...] [address] | | | | | | [place], [place] | | | | | | [address] | | | | | | [phone] | | | | | | | | +--------+---------+ + + + documented as of this encounter Visit Diagnoses + + | Diagnosis | + + | Congenital hydrocephalus (HCC) Congenital hydrocephalus | + + documented in this encounter"
--- OUTSIDE RECORDS SUMMARY | ~2019-10-25 | XMS | Encounter Summary ---
Demographics + + + | Address | [address] | | | [place] [address] | + + + | Home Phone | | + + + | Preferred Language | Unknown | + + + | Marital Status | Single | + + + | Jain Affiliation | NRP | + + + | Race | White | + + + | Ethnic Group | Not or | + + + Author + + + | Author | [facility] | + + + | Organization | [facility] | + + + | Address | Unknown | + + + | Phone | Unavailable | + + + Support + + + + + | Name | Relationship | Address | Phone | + + + + + | Malina Nicole | ECON | [address] | | | | | [place] | | | | | [address] | | + + + + + | Scott Nicole | ECON | Unknown | | + + + + + Care Team Providers + +------+ + | Care Building Official Name | Role | Phone | + [...] floor | | | | | | [place], [place] | | | | | | [address] | | | +--------+ + + + [...] [address] | | | | | | [place], [place] | | | | | | [address] | | | | | | [phone] | | | | | | | | +--------+---------+ + + + documented as of this encounter Visit Diagnoses Not on filedocumented in this encounter"
--- OUTSIDE RECORDS SUMMARY | ~2019-10-25 | XMS | Encounter Summary ---
Demographics + + + | Address | [address] | | | [place] [address] | + + + | Home Phone [...] [place] | | | | | [address] | | + + + + + | Scott Nicole | ECON | Unknown | | + + + + + Care Team Providers + +------+ + | Care Explosive Man Name | Role | Phone | + +------+ + | Patricia Stevens | PCP | | + +------+ + Reason for Visit + + + | Reason | Comments | + + + | Treatment Question | brace for right ankle | + + + Encounter Details +--------+ + + + + | Date | Type | Department | Care Team | Description | +--------+ + + + + | 01/09/ | Telephone | Neurosurgery at | Nolvia Delgado, | Treatment Question | | 2017 | | [facility] [address] | MD [address] | (brace for right | | | | Ave Center for | [place], [place] | ankle ) | | | | Health and Healing, | [address] | | | | | [facility] | [phone] | | | | | floor [place], [place] | | | | | | [address] | | | | | | [phone] | | | +--------+ + + + [...] 11/24/ | Office | Neurological Surgery | Christiano Delgadokumar Azul, | | | 2019 | Visit | | [address] | | | | | | [place], [place] | | | | | | [address] | | | | | | [phone] | | | | | | | | +--------+---------+ + + + documented as of this encounter Visit Diagnoses + + | Diagnosis | + + | Right leg weakness - Primary Other musculoskeletal symptoms referable to limbs | + + | Hydrocephalus (HCC) Obstructive hydrocephalus | + + | Acute on chronic intracranial subdural hematoma (HCC) | + + documented in this encounter"
--- OUTSIDE RECORDS SUMMARY | ~2019-10-25 | XMS | Encounter Summary ---
Demographics + + + | Address | [address] | | | [place] [address] | + + + | Home Phone [...] [place] | | | | | [address] | | + + + + + | Scott Nicole | ECON | Unknown | | + + + + + Care Team Providers + +------+ + | Care Hydrology Teacher Name | Role | Phone | [...] Danny, | | | | | | | Nolvia Liang MD | | | | | | Communicatin | [address] | | | | | | g | Ave | | | | | | hydrocephalu | [place], [place] | | | | | | s ([facility]) | [address] | | | | | | Procedures | Phone: | | | | | | CT HEAD WO | [phone] | | | | | | CONTRAST | Fax: | | | | | | | [phone] | | +--------+--------+ + + + + Reason for Visit + + + | Reason | Comments | + + + | Return Patient | | + + + | MRI Results | | + + + Office Visit [...] | | | | | hydrocephalu | [facility] | Ave | | | | | s (HCC) | [facility] | [place], [place] | | | | | Procedures | Rd | [address] | | | | | [place] EST | [place], [place] | Phone: | | | | | PATIENT | [address] | [phone] | | | | | LEVEL V [place] | Phone: | Fax: | | | | | REPROGRAMMIN | [phone] | [phone] | | | | | G,PROGRAMMAB | Fax: | | | | | | LE CSF SHUNT | [phone] | | +--------+--------+ + + + + Encounter Details +--------+---------+ + + + | Date | Type | Department | Care Team | Description | +--------+---------+ + + + | 07/09/ | Office | Neurosurgery at | Nolvia Delgado, | Communicating | | 2019 | Visit | [facility] [address] | MD [address] | hydrocephalus | | | | Ave Center for | [place], [place] | (Primary Dx) | | | | Health and Healing, | [address] | | | | | Building , | [phone] | | | | | floor [place], [place] | | | | | | [address] | | | | | | [phone] | | | +--------+---------+ + + + [...] + + + + | Weight | 108 kg (238 lb) | 07/09/2018 1:23 PM | | | | | PDT | | + + + + + | Height | 172.7 cm (5' 8") | 07/09/2018 1:23 PM | | | | | PDT | | + + + + + | Body Mass Index | 36.19 | 07/09/2018 1:23 PM | | | | | PDT | | + + + + + documented in this encounter Progress Notes Nolvia Delgado MD - 07/09/2018 1:15 PM PDTFormatting of this note might be different fro shannan the original. NEUROSURGERY FOLLOW UP CLINIC VISIT HPI / INTERVAL HISTORY: Rin Casas is a 48 y.o. 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 She already underwe nt ETV x3 and right occipital VPS with Strata II valve. Her post-op course was complicated by bilateral subdural hematomas that were treated with bilateral aime holes 09/2016. Her shun t was turned up to 2.5 when her SDH were diagnosed and then turned down to 2.0 in 05/2017. Rommel hassan was last seen in clinic 12/2017 at which time imaging showed slightly larger ventricles, h owever she was tolerating it well clinically and the shunt was kept at 2.0 due to the risk o f another SDH. She now presents with 6 month interval imaging. The patient's mother reports she has been having issues with edema. She has ongoing issues with weakness and right-sided weakness. She has put on some weight recently, andher mother r eports her skin coplexion has been very mottled for the last few months. I personally reviewed patient symptoms and pertinent positives are available in the HPI, al l others negative. PMH: Past Medical History: Diagnosis Date Blindness of both eyes, impairment level not further specified Cerebral palsy (HCC) Epilepsy, partial (HCC) H/O hydrocephalus Legally blind S/P placement of VNS (vagus nerve stimulation) device 2001 Seizures (HCC) Spastic quadriparesis (HCC) MEDS: Current [...] on file prior to visit. PHYSICAL EXAM: Ht 1.727 m (5' 8") | Wt 108 kg (238 lb) | BMI 36.19 kg/m | BSA 2.28 m Awake, alert, oriented x3, follow commands EOMI, poor vision, hearing intact In wheelchair, right hemiparesis IMAGING: All studies personally reviewed. 07/09/2018 CT HEAD WITHOUT CONTRAST IMPRESSION: No significant interval change compared to 01/08/2018. ASSESSMENT AND PLAN: Rin Casas is a 48 y.o. female who presents for evaluation of interval imaging in the setting of shunted post-infectious obstructive hydrocephalus with Strata II at 2.0, as well as history of spastic cerebral palsy and seizure disorder s/p VNS (currently implanted but n onfunctional). Imaging shows residual SDH without acute bleeding. Her edema is possibly rela joslyn to heart or kidney function and must be worked up. Of note, on shunt check today her rinku ve was set at 2.5. For optimization of her neurologic function and symptoms, I adjusted the shunt to 1.5 today in clinic - Shunt set at 1.5 today - RTC in [address] head I am Tracy James functioning as a scribe for Dr. Nolvia Delgado MD at 8:52 AM on 07/09/2018. I have reviewed and verified the above scribed note of my visit with this patient as record ed by Tracy James. MD Nolvia Sanz MD NEUROSURGERY AT [facility] [address] Mailcode: [id number] [id number] documented in this en counter Plan of Treatment +--------+---------+ + + + | Date | Type | Specialty | Care Team | Description | +--------+---------+ + + + | 11/24/ | Office | Neurological Surgery | Nolvia Delgado, | | | 2019 | Visit | | [address] | | | | | | [place], [place] | | | | | | [address] | | | | | | [phone] | | | | | | | | +--------+---------+ + + + documented as of this encounter Results CT HEAD WO CONTRAST (12/31/2018 11:26 AM PDT) + + | Specimen | + + | | + + + + + | Narrative | Performed At | + + + | EXAM: CT HEAD WITHOUT CONTRAST HISTORY: 48-year-old woman with | [facility] | | 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 COMPARISON: CT head 08/27/2018 | | | TECHNIQUE: CT of the head without intravenous contrast. FINDINGS: | | | BRAIN: Isodense extra-axial fluid collection overlying the | | | bilateral parietal activities, slightly increased in prominence from | | | prior. Redemonstration of right posterior approach ventriculostomy | | | catheter traversing the septum pellucidum and terminating in the | | | anterior horn of the left lateral ventricle. The morphology of the | | | ventricles is relatively unchanged from prior study with minimal | | | decrease in caliber (superior lateral ventricles now measure 11 cm in | | | transverse diameter, 11.5 cm on prior study). No evidence of acute | | | hemorrhage, mass, or acute territorial infarction. No midline shift. | | | No progressive ventriculomegaly. The basal cisterns are patent. | | | SOFT TISSUES: Unremarkable. SKULL AND SKULL BASE: No fractures or | | | destructive lesions. Mastoids and middle ears are unremarkable. [place] | | | holes in bilateral superior parietal bones are present, unchanged from | | | prior. FACE/ORBITS: Visualized portions are unremarkable. PARANASAL | | | SINUSES: Air fluid level is noted within the left maxillary sinus. | | | IMPRESSION: Minimally decreased ventriculomegaly compared to | | | prior CT of 08/27/2018 with compensatory slight increase in prominence | | | of biparietal extra-axial fluid collection. I have personally | | | reviewed the images and, if necessary, edited the report. I agree with | | | the report as now presented. Final signature: Zeferino Patrick | | 12/31/2018 6:05 PM Preliminary: Ron Ramesh MD | | | Dictation initiated: Ron Ramesh MD 12/31/2018 11:44 AM | | + + + + + | Procedure Note | + + | Service Account, Radiant Res In Interface - 12/31/2018 6:06 PM PDT EXAM: CT HEAD | | WITHOUT CONTRAST HISTORY: 48-year-old woman with cerebral palsy secondary to congenital | | toxoplasmosis, complicated by aqueductal stenosis with PROFESSOR OF MECHANICAL ENGINEERING shunt, interval evaluation of | | SDH in shunted hydrocephalus. COMPARISON: CT head 08/27/2018 TECHNIQUE: CT of the head | | without intravenous contrast. FINDINGS: BRAIN: Isodense extra-axial fluid collection | | overlying the bilateral parietal activities, slightly increased in prominence from | | prior. Redemonstration of right posterior approach ventriculostomy catheter traversing | | the septum pellucidum and terminating in the anterior horn of the left lateral | | ventricle. The morphology of the ventricles is relatively unchanged from prior study | | with minimal decrease in caliber (superior lateral ventricles now measure 11 cm in | | transverse diameter, 11.5 cm on prior study). No evidence of acute hemorrhage, mass, or | | acute territorial infarction. No midline shift. No progressive ventriculomegaly. The | | basal cisterns are patent. SOFT TISSUES: Unremarkable.SKULL AND SKULL BASE: No fractures | | or destructive lesions. Mastoids and middle ears are unremarkable. Aime holes in | | bilateral superior parietal bones are present, unchanged from prior.FACE/ORBITS: | | Visualized portions are unremarkable.PARANASAL SINUSES: Air fluid level is noted within | | the left maxillary sinus. IMPRESSION: Minimally decreased ventriculomegaly compared to | | prior CT of 08/27/2018 with compensatory slight increase in prominence of biparietal | | extra-axial fluid collection. I have personally reviewed the images and, if necessary, | | edited the report. I agree with the report as now presented. Final signature: Ron Thomas | | MD Gadiel 12/31/2018 6:05 PM Preliminary: Ron Ramesh MD Dictation | | initiated: Ron Ramesh MD 12/31/2018 11:44 AM | | | |I have personally reviewed the images and, if necessary, edited the report. I agree with e report as now presented. 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
--- OUTSIDE RECORDS SUMMARY | ~2019-10-25 | XMS | Encounter Summary ---
Demographics + + + | Address | [address] | | | [place] [address] | + + + | Home Phone [...] [place] | | | | | [address] | | + + + + + | Scott Nicole | ECON | Unknown | | + + + + + Care Team Providers + +------+ + | Care Furnace Installer Name | Role | Phone | + [...] procedure | | | | Physician's | [place], [place] | | | | | [address], 2nd floor | [address] | | | | | [place], [place] | [phone] | | | | | [address] | | | | | | [phone] | | | +--------+ + + + [...] | | 2020 | Visit | | [address] | | | | | | [facility], [place] | | | | | | [address] | | | | | | [phone] | | | | | | | | +--------+---------+ + + + documented as of this encounter Visit Diagnoses Not on filedocumented in this encounter"
--- OUTSIDE RECORDS SUMMARY | ~2019-10-25 | XMS | Encounter Summary ---
Demographics + + + | Address | [address] | | | [place] [address] | + + + | Home Phone [...] Author + + + | Author | [facility] | + + + | Organization | [facility] | + + + | Address | Unknown | + + + | Phone | Unavailable | + + + Support + + + + + | Name | Relationship | Address | Phone | + + + + + | Malina Nicole | ECON | [address] | | | | | [place] | | | | | [address] | | + + + + + | Scott Nicole | ECON | Unknown | | + + + + + Care Team Providers + +------+ + | Care Dishwasher Name | Role | Phone | + [...] Description | +--------+--------+ + + + | 04/16/ | Refill | Neurosurgery at | Nolvia Delgado, | Refill Request | | 2020 | | [facility] [address] | MD [address] | | | | | Ave [place] for | [place], [place] | | | | | Health and Healing, | [address] | | | | | [facility] | [phone] | | | | | floor [place], [place] | | | | | | [address] | | | | | | [phone] | | | +--------+--------+ + + + [...] [address] | | | | | | [place], [place] | | | | | | [address] | | | | | | [phone] | | | | | | | | +--------+---------+ + + + documented as of this encounter Visit Diagnoses Not on filedocumented in this encounter"
--- OUTSIDE RECORDS SUMMARY | ~2019-10-25 | XMS | Encounter Summary ---
Demographics + + + | Address | [address] | | | [place] [address] | + + + | Home Phone [...] [place] | | | | | [address] | | + + + + + | Scott Nicole | ECON | Unknown | + | + + + + + Care Team Providers + +------+ + | Care Motorcycle Fabricator Name | Role | Phone | + +------+ + | Gabe Baird | PCP | | + +------+ + Encounter Details +--------+--------+ + + + | Date | Type | Department | Care Team | Description | +--------+--------+ + + + | 05/06/ | Travel | | | | | 2019 | | | | | +--------+--------+ + [...] | 2019 | Visit | | MD [address] | | | | | | [place], [place] | | | | | | [address] | | | | | | [phone] | | | | | | | | +--------+---------+ + + + documented as of this encounter Visit Diagnoses Not on filedocumented in this encounter"
--- OUTSIDE RECORDS SUMMARY | ~2019-10-25 | XMS | Encounter Summary ---
Demographics + + + | Address | [address] | | | [place] [address] | + + + | Home Phone | | + + + | Preferred Language | Unknown | + + + | Marital Status | Single | + + + | Anabaptism Affiliation | NRP | + + + [...] [place] | | | | | [address] | | + + + + + | Scott Mcgarry ECON | Unknown | | + + + + + Care Team Providers + +------+ + | Care Investor Relations Coordinator Name | Role | Phone | [...] | | [place] [address] | [place] | | | | | hydrocephalu | [address] | [facility] | | | | | s (HCC) | [place], [place] | Research | | | | | Procedures | [address] | Center | | | | | MRI BRAIN WO | Phone: | [place], [place] | | | | | [address] | [phone] | [address] | | | | | [address] | Fax: | Phone: | | | | | [address] | [phone] | [phone] | | | | | RITA | | Fax: | | | | | | | [phone] | +--------+--------+ + + + + Reason [...] | s ([facility]) | [place], [place] | Research | | | | | Procedures | [address] | Center | | | | | MRI BRAIN WO | Phone: | [place], [place] | | | | | [address] | [phone] | [address] | | | | | [address] | Fax: | Phone: | | | | | [facility] | [phone] | [phone] | | | | | RITA | | Fax: | | | | | | | [phone] | +--------+--------+ + + + + Encounter Details +--------+ + + + + | Date | Type | Department | Care Team | Description | +--------+ + + + + | 08/05/ | Hospital | Diagnostic Imaging | | | | 2013 | Encounter | Services at [facility] | | | | | | [address] | | | | | | [address] | | | | | | Research Center | | | | | | [place], [place] | | | | | | [address] | | | | | | [phone] | | | +--------+ + + + [...] 08/05/2013 9:14 AM PDTDr. Kahlil Harris from [facility] was called to get ord ers [...] [address] | | | | | | [place], [place] | | | | | | [address] | | | | | | [phone] | | | | | | | [...] | | + +---------+ + + | [facility] DEPARTMENT OF | | | | | RADIOLOGY | | | | + +---------+ + + documented in this encounter Visit Diagnoses + + | Diagnosis | + + | Obstructive hydrocephalus (HCC) Obstructive hydrocephalus | + + documented in this encounter"
--- OUTSIDE RECORDS SUMMARY | ~2019-10-25 | XMS | Encounter Summary ---
Demographics + + + | Address | [address] | | | [place] [address] | + + + | Home Phone [...] [place] | | | | | [address] | | + + + + + | Scott Nicole | ECON | Unknown | | + + + + + Care Team Providers + +------+ + | Care Emergency Department Name | Role | Phone | [...] + + + | Closed | | Orthopedics | Diagnoses | Chang, | Xavi, | | | | | Foot | Stefano Liang MD | Mary Jane, | | | | | deformity, | | DPM [address] | | | | | congenital | | [address] | | | | | Right foot | | [place], [place] | | | | | Procedures | | [address] | | | | | CONSULT TO | | Phone: | | | | | ORTHOPEDICS | | [phone] | | | | | AND | | Fax: | | | | | REHABILITATI | | [phone] | | | | | ON | | | +--------+--------+ + + + + Encounter Details +--------+---------+ + + + | Date | Type | Department | Care Team | Description | +--------+---------+ + + + | 06/26/ | Office | Orthopaedics | Mary Jane Hurley, | Ankle pain (Primary | | 2012 | Visit | Faculty at Center | DPM [address] | Dx); Congenital | | | | for Health and | [place], [place] | ankle deformity | | | | Healing [address] | [address] | | | | | Ave [place] for | [phone] | | | | | Health and Healing, | | | | | | Building | | | | | | Floor [place], [place] | | | | | | [address] | | | | | | [phone] | | | +--------+---------+ + + + [...] + + + | Blood Pressure | 142/78 | 06/26/2012 11:03 AM | | | | | PDT | | + + + + + | Pulse | 73 | 06/26/2012 11:03 AM | | | | | PDT [...] Weight | 90.7 kg (200 lb) | 06/26/2012 11:03 AM | | | | | PDT | | + + + + + | Height | 174 cm (5' 8.5") | 06/26/2012 11:03 AM | | | | | PDT | | + + + + + | Body Mass Index | 29.97 | 06/26/2012 11:03 AM | | | | | PDT | | + + + + + documented in this encounter Progress Notes Mary Jane Hurley DPM - 06/26/2012 11:35 AM PDTFormatting of this note might be different fr om the original. Rin Casas is a 42 y.o. female presenting today with Right ankle pain. She notes as t bebe goes on the area is becoming harder to walk on. She presents today with her parents. The y note that when she was younger she had surgery on the Left side which is fine but notes th at the Right side is increasingly making walking very difficult. They present today wonderin g what could be done or if anything could be done for her. Review of Systems: General: No constitutional symptoms of fevers, fatigue, chills, weight loss or sweats. Eyes: Problems with vision. Ears, Nose and Throat: No hearing loss, ringing in the ears, ear discharge, earache, noseb tarun, nasal congestion, difficulty swallowing, hoarseness or sore throat. Respiratory: No shortness of breath, coughing up blood, excessive sputum, cough, chest dis comfort or wheezing. Musculoskeletal: Right foot deformity Cardiovascular: No chest pain, skipping beats, lightheadedness, [...] incontinence, urinary urgency or genital sores. Neurologic: Hydrocephalus, Epilepsy Skin: No itching, rash, poor wound healing, night sweats, changes in skin color, dryness, flushing or suspicious lesions. Psychological: No abnormal anxiety, depression, thoughts of suicide or hallucinations. Heme/Lymphatic: No skin discoloration, abnormal bleeding or enlarged lymph nodes. Endocrine: No heat intolerance, cold intolerance, excessive hunger or excessive thirst. Allergic: NKDA Past Medical History Diagnosis Date Epilepsy, partial Cerebral palsy Spastic quadriparesis H/O hydrocephalus S/P placement of VNS (vagus nerve stimulation) device 2000 Seizures Legally blind Blindness of both eyes, impairment level not further specified History Smoking status Never Smoker Smokeless tobacco Never Used History Alcohol Use 0.0 oz/week 3 glasses of beer per week History Drug Use No Patient is oriented to person place and time. Vascular: Dorsalis Pedis/ Posterior tibial pulses palpable Right. Capillary refill time <3 secs at all digits Right foot. Dermatologic: Webspaces clean dry and intact, no open areas, no signs of infection. Skin is supple well hydrated to the Right. Musculoskeletal: Right foot is Rigidly inverted with minimal ROM in dorsiflexion, plantarfl exion, inversion, eversion. Gait not assessed since she is unstable and in wheelchair today. Assessment: 1) Congenital foot deformity 2) Ankle pain. Plan: She is not interested in conservative treatment and would like to have surgery on the area and notes that they have tried braces etc. I told them that I do not do surgeries of t his sort and could refer her to our new Foot and Ankle Orthopedic doctor. They are agreeable to this and are willing to wait to see him since they have seen doctors near her hometown a [facility]. I will put in a consult to see if we could get her set up for an evaluation. She is agreeable to this as well as her parents. documented in this e ncounter Plan of Treatment +--------+---------+ + + + | Date | Type | Specialty | Care Team | Description | +--------+---------+ + + + | 11/24/ | Office | Neurological Surgery | Nolvia Delgado, | | | 2019 | Visit | | [address] | | | | | | [place], [place] | | | | | | [address] | | | | | | [phone] | | | | | | | | +--------+---------+ + + + documented as of this encounter Results X-RAY ANKLE 3 VIEWS RIGHT (06/26/2012 11:48 AM PDT) + + + + + + | Component | Value | Ref Range | Performed | Pathologist | | | | | At | Signature | + + + + + + | ANKLE 3 | STUDY: ANKLE 3 VIEWS | | | | | VIEWS RIGHT | RIGHT 06/26/12 11:48:00 | | | | | | HISTORY: Pain. | | | | | | COMPARISON: None. | | | | | | FINDINGS: The bones are | | | | | | intact without fracture | | | | | | or focal destruction. | | | | | | Thejoint spaces are | | | | | | preserved. There is no | | | | | | mortise asymmetry | | | | | | orsyndesmotic widening. | | | | | | The soft tissues are | | | | | | intact. IMPRESSION: | | | | | | Normal right ankle. | | | | | | Attending Radiologists: | | | | | | JOSIAH HERNANDEZ, | | | | | | MDAuthor: JOSIAH | | | | | | MD MARY I have | | | | | | personally viewed this | | | | | | procedure/exam, reviewed | | | | | | this report,and made | | | | | | changes to it where | | | | | | appropriate. 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
--- OUTSIDE RECORDS SUMMARY | ~2019-10-25 | XMS | Encounter Summary ---
Demographics + + + | Address | [address] | | | [place] [address] | + + + | Home Phone | | + + + | Preferred Language | Unknown | + + + | Marital Status | Single | + + + | Zoroastrianism Affiliation | NRP | + + + | Race | White | + + + | Ethnic Group | Not or | + + + Author + + + | Author | [facility] | + + + | Organization | [facility] | + + + | Address | Unknown | + + + | Phone | Unavailable | + + + Support + + + + + | Name | Relationship | Address | Phone | + + + + + | Malina Nicole | ECON | [address] | | | | | [place] | | | | | [address] | | + + + + + | Scott Mcgarry ECON | Unknown | | + + + + + Care Team Providers + +------+ + | Care Campaign Assistant Name | Role | Phone | + +------+ + | Patricia Stevens | PCP | | + +------+ + Encounter Details +--------+ + + + + | Date | Type | Department | Care Team | Description | +--------+ + + + + | 09/14/ | Hospital | Radiology/Imaging | | | | 2013 | Encounter | Lab at [facility] [address] | | | | | [facility] | | | | | [facility] and He[facility], | | | | | | [facility] | | | | | | Floor [place], [place] | | | | | | [address] | | | | | | [phone] | | | +--------+ + + + [...] Tracy | | | | | | [place], [place] | | | | | | [address] | | | | | | [phone] | | | | | | | | +--------+---------+ + + + documented as of this encounter Procedures + +--------+ + + + | Procedure Name | Priori | Date/Time | Associated Diagnosis | Comments | | | ty | | | | + +--------+ + + + | X-RAY FOOT 3 VIEWS | Routin | 09/14/2013 | Foot pain | Results for this | | RIGHT | e | 7:47 AM | | procedure are in the | | | | PDT | | results section. | + +--------+ + + + documented in this encounter Results X-RAY FOOT 3 VIEWS [...] | | | | | | MD AWILDA I have | | | | | [...] + | Diagnosis | + + | Foot pain Pain in limb | + + documented in this encounter"
--- OUTSIDE RECORDS SUMMARY | ~2019-10-25 | XMS | Encounter Summary ---
Demographics + + + | Address | [address] | | | [place] [address] | + + + | Home Phone [...] [place] | | | | | [address] | | + + + + + | Scott Nicole | ECON | Unknown | | + + + + + Care Team Providers + +------+ + | Care Fill Technician Name | Role | Phone | + [...] | | | [facility] | [place], [place] | ankle ) | | | | Health and Healing, | [address] | | | | | [facility] | [phone] | | | | | floor [place], [place] | | | | | | [address] | | | | | | [phone] | | | +--------+ + + + [...] Tracy | | | | | | [place], [place] | | | | | | [address] | | | | | | [phone] | | | | | | | [...]
--- OUTSIDE RECORDS SUMMARY | ~2019-10-25 | XMS | Encounter Summary ---
Demographics + + + | Address | [address] | | | [place] [address] | + + + | Home Phone | | + + + | Preferred Language | Unknown | + + + | Marital Status | Single | + + + | Rastafarian Affiliation | NRP | + + + | Race | White | + + + | Ethnic Group | Not or | + + + Author + + + | Author | [facility] | + + + | Organization | [facility] | + + + | Address | Unknown | + + + | Phone | Unavailable | + + + Support + + + + + | Name | Relationship | Address | Phone | + + + + + | Malina Nicole | ECON | [address] | | | | | [place] | | | | | [address] | | + + + + + | Scott Nicole | ECON | Unknown | | + + + + + Care Team Providers + +------+ + | Care Flat Grinder Operator Name | Role | Phone | [...] | Hydrocephalu | [place] [address] | | | | | s (HCC) | [address] | Center for | | | | | Acute on | [place], [place] | Health and | | | | | chronic | [address] | Healing, | | | | | intracranial | Phone: | [address], | | | | | subdural | [phone] | 3rd Floor | | | | | hematoma | Fax: | [place], [place] | | | | | (HCC) | [phone] | [address] | | | | | Procedures | | Phone: | | | | | CT HEAD WO | | [phone] | | | | | CONTRAST MT | | Fax: | | | | | CT | | [phone] | | | | | SCAN,HEAD/BR | | | | | | | AIN,W/O | | | | | | | CONTRAST | | | | | | | MATL | | | +--------+--------+ + + + + Encounter Details +--------+ + + + + | Date | Type | Department | Care Team | Description | +--------+ + + + + | 07/09/ | Hospital | Radiology/Imaging | Bernardo, | | | 2019 | Encounter | Lab at [facility] [address] | [address] | | | | | [address] [place] [facility] | [address] | | | | | Health and Healing, | [place], [place] | | | | | [place] [address], [facility] | [address] | | | | | Floor [place], [place] | [phone] | | | | | [address] | | | | | | [phone] | | | +--------+ + + + [...] Tracy | | | | | | [place], [place] | | | | | | [address] | | | | | | [phone] | | | | | | | | +--------+---------+ + + + documented as of this encounter Procedures + +--------+ + + + | Procedure Name | Priori | Date/Time | Associated Diagnosis | Comments | | | ty | | | | + +--------+ + + + | CT HEAD WO CONTRAST | Routin | 07/09/2018 | Hydrocephalus | Results for this | | | e | 12:11 PM | Acute on chronic | procedure are in the | | | | PDT | intracranial | results section. | | | | | subdural hematoma | | | | | | (HCC) [...] Note | + + | Service Account, ActionFlow Res In Interface - 07/09/2018 12:52 PM [...]
--- OUTSIDE RECORDS SUMMARY | ~2019-10-25 | XMS | Encounter Summary ---
Demographics + + + | Address | [address] | | | [place] [address] | + + + | Home Phone | | + + + | Preferred Language | Unknown | + + + | Marital Status | Single | + + + | Baptism Affiliation | NRP | + + + | Race | White | + + + | Ethnic Group | Not or | + + + Author + + + | Author | [facility] | + + + | Organization | [facility] | + + + | Address | Unknown | + + + | Phone | Unavailable | + + + Support + + + + + | Name | Relationship | Address | Phone | + + + + + | Malina Nicole | ECON | [address] | | | | | [place] | | | | | [address] | | + + + + + | Soctt Mcgarry ECON | Unknown | | + + + + + Care Team Providers + +------+ + | Care Quality Control Lab Tech Name | Role | Phone | + [...] | 2013 | Visit | Faculty at [facility] | MD [address] | deformity of right | | | | for Health and | [place], [place] | foot (Primary Dx) | | | | Healing [address] | [address] | | | | | [facility] | [phone] | | | | | Health and Healing, | | | | | | [facility] | | | | | | [place], [place] | | | | | | [address] | | | | | | [phone] | | | +--------+---------+ + + + [...] CSN: Date: Rin Casas 1970 43 y.o. [id number] 09/14/2013 SUBJECTIVE: Date of injury NA Chief Complaint: Right ankle pain and deformity Rin Casas is a 43 y.o. female who is here for evaluation of right ankle and foot pain that occurred without any specific injury. She has a history of quadriplegic spastic cereb ral palsy. Previous left foot reconstruction in 1983 in [place] Symptoms have been ongoing for 10 years. [...] and agree with the above documentation. Asim [place] M.D. Air Bag Builder Foot and Ankle Surgery Department of Orthopedics & Rehabilitation [facility] [phone] documented in this en counter Plan of Treatment +--------+---------+ + + + | Date | Type | Specialty | Care Team | Description | +--------+---------+ + + + | 11/24/ | Office | Neurological Surgery | Nolvia Delgado, | | | 2019 | Visit | | MD [address] | | | | | | [place], [place] | | | | | | [address] | | | | | | [phone] | | | | | | | [...]
--- OUTSIDE RECORDS SUMMARY | ~2019-10-25 | XMS | Encounter Summary ---
Demographics + + + | Address | [address] | | | [place] [address] | + + + | Home Phone [...] [place] | | | | | [address] | | + + + + + | Scott Mcgarry ECON | Unknown | | + + + + + Care Team Providers + +------+ + | Care Scoop Machine Operator Name | Role | Phone [...] | | | | | hydrocephalu | [address] | [facility] | | | | | s (HCC) | [place], [place] | Research | | | | | Procedures | [address] | Center | | | | | MRI BRAIN WO | Phone: | [place], [place] | | | | | CONTRAST | [phone] | [address] | | | | | | Fax: | Phone: | | | | | | [phone] | [phone] | | | | | | | Fax: | | | | | | | [phone] | +--------+--------+ + + + + Encounter Details +--------+ + + + + | Date | Type | Department | Care Team | Description | +--------+ + + + + | 07/16/ | Inside | Diagnostic Imaging | Bernardo, | | | 2012 | Referral | Services at [facility] | [address] | | | | Order | [address] | [address] | | | | | Jaida Tompkins | [place], [place] | | | | | Research Center | [address] | | | | | [place], [place] | [phone] | | | | | [address] | | | | | | [phone] | | | +--------+ + + + [...] Tracy | | | | | | [place], [place] | | | | | | [address] | | | | | | [phone] | | | | | | | | +--------+---------+ + + + documented as of this encounter Results MRI BRAIN WO CONTRAST (07/16/2012 4:36 PM PDT) + + + + + + | Component | Value | Ref Range | Performed | Pathologist | | | | | At | Signature | + + + + + + | MR BRAIN WO | MRI BRAIN WITHOUT | | | | | CONTRAST | CONTRAST, 07/16/12 | | | | | | 14:47:00. INDICATION: | | | | | | Obstructive | | | | | | hydrocephalus, | | | | | | status-post endoscopic | | | | | | thirdventriculostomy | | | | | | (ETV) on | | | | | | 03/20/12.COMPARISON: | | | | | | 02/03/12 TECHNIQUE: | | | | | | Multiplanar, | | | | | | multi-sequence MR | | | | | | imaging of the entire | | | | | | brainwas performed | | | | | | without intravenous | | | | | | gadolinium contrast. | | | | | | DedicatedBFFE | | | | | | sequences through the | | | | | | brain stem are also | | | | | | provided. FINDINGS: | | | | | | Skull/Marrow/Soft | | | | | | tissues: The tract | | | | | | through the left | | | | | | frontalcalvarium near | | | | | | the vertex is noted | | | | | | extending into the left | | | | | | lateralventricle. | | | | | | Orbits/Optic nerves: | | | | | | Normal Sinuses: Clear | | | | | | Brain: There is | | | | | | redemonstration of | | | | | | ventriculomegaly | | | | | | involving thelateral | | | | | | ventricular system | | | | | | bilaterally and third | | | | | | ventricle. Thefourth | | | | | | ventricle is normal in | | | | | | size. These findings | | | | | | are slightlydecreased. | | | | | | The remaining brain | | | | | | parenchyma is unchanged | | | | | | with thinningof the | | | | | | supratentorial areas. | | | | | | There is no restricted | | | | | | diffusion. IMPRESSION: | | | | | | Slightly decreased | | | | | | ventriculomegaly | | | | | | isolated to the | | | | | | lateralventricles | | | | | | bilaterally and third | | | | | | ventricle. The fourth | | | | | | ventricleremains normal | | | | | | in size. Attending | | | | | | Radiologists: ESTELA | | | | | | SRUTHI MORAuthor: GISSEL | | | | | | MD KEVIN I have | | | | | [...] | | | | | | MORGAN 07/16/2012 17:17 | | | | | | PM Pending final | | | | | | approval / GISSEL BROWN | | | | | | 07/16/2012 16:52 PM | | | | | | Preliminary / GISSEL | | | | | | KEVIN 07/16/2012 16:12 PM | | | | | | | [...]
--- OUTSIDE RECORDS SUMMARY | ~2019-10-25 | XMS | Encounter Summary ---
Demographics + + + | Address | [address] | | | [place] [address] | + + + | Home Phone [...] [place] | | | | | [address] | | + + + + + | Scott Mcgarry ECON | Unknown | | + + + + + Care Team Providers + +------+ + | Care Pet Resort Concierge Name | Role | Phone | + [...] | Radiology | Diagnoses | DeDeaux, | Rad Ct Scan | | | | | | Jeannine H, | [facility] [address] | | | | | Hydrocephalu | [address] | [facility] | | | | | s (HCC) | [facility] | [address] [facility] | | | | | Procedures | [facility] | Hospital, | | | | | CT HEAD WO | Rd | 10th Floor | | | | | CONTRAST [place] | [place], [place] | [place], [place] | | | | | [place] | [address] | [address] | | | | | SCAN,HEAD/BR | | Phone: | | | | | AIN,W/O | | [phone] | | | | | CONTRAST | | Fax: | | | | | MATL | | [phone] | +--------+--------+ + + + + Encounter Details +--------+ + + + + | Date | Type | Department | Care Team | Description | +--------+ + + + + | 07/03/ | Vertical Contour Band Saw Operator | Neurosurgery at | Jeannine Hebert | Hydrocephalus | | 2017 | | [place] [facility] | [facility] | (Primary Dx) | | | | and Healing [address] | | | | | | [address] [facility] | | | | | | Health and Healing, | | | | | | Building | | | | | | Floor [place], [place] | | | | | | [address] | | | | | | [phone] | | | +--------+ + + + [...] | | 2019 | Visit | | [address] | | | | | | [place], [place] | | | | | | [address] | | | | | | [phone] | | | | | | | | +--------+---------+ + + + documented as of this encounter Results CT HEAD WO CONTRAST (07/18/2016 12:09 PM PDT) + + | Specimen | + + | | + + + + + | Narrative | Performed At | + + + | EXAM: CT head without contrast HISTORY: Ventricular megaly | [facility] | | status post shunt placement. COMPARISON: 07/02/2016 TECHNIQUE: | RADIOLOGY VOICE | | CT of the head without contrast. FINDINGS: Brain: Slight | RECOGNITION | | interval decreased size of lateral and third ventriculomegaly. | | | Unchanged positioning of a right transparietal shunt catheter with tip | | | terminating about the left frontal horn of the lateral ventricle. | | | There is slight interval increased prominence, however, likely | | | unchanged size of a right parietal extra-axial fluid collection | | | measuring up to 10 mm in maximum depth appearing isodense. No evidence | | | of midline shift or yuli herniation at this time. Unchanged brain | | | morphology. Soft tissues: Unremarkable Skull and skull base: | | | No fractures or destructive lesions. Mastoids and middle ears are | | | unremarkable. Face/orbits: Visualized portions are unremarkable. | | | Paranasal sinuses: Visualized portions are unremarkable. | | | IMPRESSION: Slight interval decreased prominence of the lateral | | | and third ventricles status post unchanged positioning of a right | | | transparietal shunt catheter. I have personally reviewed the | | | images and, if necessary, edited the report. I agree with the report | | | as now presented. | | + + + + + | Procedure Note | + + | Service Desiree, Radiant Res In Interface - 07/18/2016 12:22 PM PDT EXAM: CT head | | without contrastHISTORY: Ventricular megaly status post shunt placement.COMPARISON: | | 07/02/2016TECHNIQUE: CT of the head without contrast.FINDINGS:Brain: Slight interval | | decreased size of lateral and third ventriculomegaly. Unchanged positioning of a right | | transparietal shunt catheter with tip terminating about the left frontal horn of the | | lateral ventricle. There is slight interval increased prominence, however, likely | | unchanged size of a right parietal extra-axial fluid collection measuring up to 10 mm in | | maximum depth appearing isodense. No evidence of midline shift or yuli herniation at | | this time. Unchanged brain morphology. Soft tissues: UnremarkableSkull and skull base: | | No fractures or destructive lesions. Mastoids and middle ears are | | unremarkable.Face/orbits: Visualized portions are unremarkable.Paranasal sinuses: | | Visualized portions are unremarkable.IMPRESSION:Slight interval decreased prominence of | | the lateral and third ventricles status post unchanged positioning of a right | | transparietal shunt catheter.I have personally reviewed the images and, if necessary, | | edited the report. I agree with the report as now presented. | |Skull and skull base: No fractures or destructive lesions. Mastoids and middle ears are unr emarkable. | |Face/orbits: Visualized portions are unremarkable. | |Paranasal sinuses: Visualized portions are unremarkable. | | | |IMPRESSION: | | | |Slight interval decreased prominence of the lateral and third ventricles status post unchan ged positioning of a right transparietal shunt catheter. | | | | | |I have [...]
--- OUTSIDE RECORDS SUMMARY | ~2019-10-25 | XMS | Encounter Summary ---
Demographics + + + | Address | [address] | | | [place] [address] | + + + | Home Phone | | + + + | Preferred Language | Unknown | + + + | Marital Status | Single | + + + | Alevism Affiliation | NRP | + + + [...] [place] | | | | | [address] | | + + + + + | Scott Mcgarry ECON | Unknown | | + + + + + Care Team Providers + +------+ + | Care Piercer Name | Role | Phone | + +------+ + | Patricia Stevens | PCP | | + +------+ + Reason for Visit + + + | Reason | Comments | + + + | Treatment Planning | | + + + Encounter Details +--------+ + + + + | Date | Type | Department | Care Team | Description | +--------+ + + + + | 01/13/ | Telephone | Neurosurgery at | Nolvia Delgado, | Treatment Planning | | 2017 | | [facility] [address] | MD [address] | | | | | Ave [facility] | [place], [place] | | | | | Health and Healing, | [address] | | | | | [facility] | [phone] | | | | | floor [place], [place] | | | | | | [address] | | | | | | [phone] | | | +--------+ + + + [...] Tracy | | | | | | [place], [place] | | | | | | [address] | | | | | | [phone] | | | | | | | | +--------+---------+ + + + documented as of this encounter Visit Diagnoses Not on filedocumented in this encounter"
--- OUTSIDE RECORDS SUMMARY | ~2019-10-25 | XMS | Encounter Summary ---
Demographics + + + | Address | [address] | | | [place] [address] | + + + | Home Phone | | + + + | Preferred Language | Unknown | + + + | Marital Status | Single | + + + | Scientology Affiliation | NRP | + + + | Race | White | + + + | Ethnic Group | Not or | + + + Author + + + | Author | [facility] | + + + | Organization | [facility] | + + + | Address | Unknown | + + + | Phone | Unavailable | + + + Support + + + + + | Name | Relationship | Address | Phone | + + + + + | Malina Nicole | ECON | [address] | | | | | [place] | | | | | [address] | | + + + + + | Scott Mcgarry ECON | Unknown | | + + + + + Care Team Providers + +------+ + | Care Final Assembler Boat Name | Role | Phone | + [...] | | 2017 - | Encounter | [place] | [address] | | | | | [id number] [facility] | [place], [place] | | | 08/22/ | | [facility] [place], | [address] | | | 2017 | | [place] [address] | [phone] | | | | | [phone] | | | +--------+ + + + [...] Nolvia Delgado MD PCP: REENA Gusman Service: [facility] Neurosurgery Diagnoses Principal Final Diagnosis: bilateral L>R [...] on the 8t h floor at the [facility] on the [facility] located at [address] [facility], [place] [facility]. Please call [phone] if you have any questions or concerns [...] 8:21 AM Discharging Attending: Nolvia Delgado MD [facility] [address] [address] [place] [address] documented in th is encounter Discharge Instructions [...] Stroke Association. Visit http://www.st roke.org/ or call 5-589-WPOFCOQ ( ). ? The [place] Stroke Association Family "Warmline" 2-441-6-STROKE ( ). ? Contact your local stroke [...] CRISIS LINES: -07/10 National Suicide Prevention Lifeline 4-127-697-TALK (3812) Hearing and Speech Impaired 1-393-516-4TTY (3413) http://www.suicidepreventionlifeline.org/ -07/10 Mental Health Treatment Referral Line 9-639-143-HELP (9604) http://www.samhsa.gov/treatment/natHelpFAQs.aspx -[facility] Crisis Line , press 1 [...] your senior or day center, you r buddhist community, or any other community in which [...] service which conn ects the people of [place] and [facility] with the community resources they need. 2 [employer] Home Instead (416.878.6972) This is a [employer] which can provide in home assistance at a cost to the family. [place] Project [place] OPI is a program which helps seniors 60 and over continue to live independently and safely living in their own home. OPI provides individualized personal care, housekeeping, and case management support. http://www.[place].gov/dhs/spwpd/pages/ltc/inhome.aspx#opi [place] Independent Living Resources: [place] Statement Of Independent Living Resources: Promote the philosophy of Independent L iving by creating opportunities, encouraging choices, advancing equal access, and furthering the level of independence for all people with disabilities. 166.845.2062 [facility] (369.408.3002) Services are targeted to people who are not Medicaid eligible. The [facility] has information about in-home care, how [...] 60 and older. Seniors must live in [facility] in [place] or [facility] in [place] to be eligible to receive meal s. Call to request meals at [phone] [facility] and [facility] and toll free in [facility] at . Most of the [facility] in [place] have a Meals on Wheels Program, and information on local [facility] uv-no-ejkend services can be obtained through local Area Agency on Aging Offices. [place] Vocational Rehabilitation Service (OVRS) ( ) http://www.[place].gov/DHS /vr/Pages/index.aspx [place] Area Agency on Aging http://www.[place].gov/dhs/spwpd/pages/offices.aspx There are 17 Area Agencies on Aging across [place] that administer and support community-bas ed care services. AAAs advocate for older adults living in their area, develop community-based long-term care services to meet the needs of those adults and administer funds to implement services. Most services coordinated by AAAs are provided through community service providers at the local level. This section contains program information designed for staff members of [place]'s AAAs . Aging and Disability Resource Connection of [place] https://adrcoforegon.org/gvhswa-wosduxo-ihc-independent-living.php [facility] is a resource directory for [place] families, caregivers and consumers seekin g information about long-term supports and services. Here you will find quick and easy acces s to resources in your community. If you cannot find the information you are looking for or wish to talk to someone in person, please call us toll free at [facility] ([phone] 2) [place] Caregiver Support Line http://www.caregiver.va.gov/ Toll free : Also check with your private health insurance organization, as respite care may also be inc luded in the coverage. Support Groups for Families Living with Aphasia Individuals and families affected by aphasia face unique challenges. Support specifically d esigned for these people is limited. Three groups have formed in the [place], [place] area t hat provide both the individual experiencing aphasia and family members the opportunity to d evelop a sense of community with others impacted by aphasia. These groups are organized and run by participants. Faculty and students from [facility] s Department of S peech and [...] everyone. There are several groups in the [facility] for individuals and families living wit h aphasia: [facility] Continuous Improvement Group When: Each Friday 11:00 12:00 Where: [facility] [address] [place] [address]. Contact: Luis F Soto Juliana [email or web address] [facility] Speak EZ group When: Odd numbered Saturdays (i.e. March 21) 10:00 12:00 Where: [facility] [address] Contact: Trent Amaya [phone] [facility] Aphasia Group When: & Friday of each month 10:00 12:00 Where: [facility] Room varies watch for directional signs Contact: Aruna Hampton [phone] [email or web address] [employer] A community music group for stroke survivors. Stroke survivors, spouses, partners, and care givers are invited to join for an hour of playing instruments and singing. Every Friday, 11:30-12:30 at the [facility], [address] [place] [address]. Info rmation contact: Mariana Vieira, , [email or web address] Brain Injury [place] of [place] http://www.biaoregon.org/ National Stroke Association http://www.stroke.org/ .STROKES (787.6537) National Center on Caregiving/ Family Caregiver [place] www.caregiver.org Established in 2000 as a program of Family Caregiver [place], the National Center on Careg iving (NCC) works to advance the development of high-quality, cost-effective policies and pr ograms for caregivers in every state in the country. Uniting research, public policy and ser vices, the [facility] serves as a central source [...] their doctors about any personal medical concerns. [facility] Crisis Line Information: [facility] Mental [facility] Access Crisis Number (days) or (after hours) [facility] Mental Health Program Access or Crisis Number [facility] Access Crisis Number [facility] Access Crisis Number [facility], [facility]. Access Crisis Number or (after hours) [facility] Mental Health Program Access Crisis Number (24 hours) [facility] Mental Health Program Access Crisis Number (after hours) [facility] Mental Health Program Access Crisis Number [facility] Mental Health Services Access Crisis Number (24 hours) or [facility] Health and [facility] [employer] Dept. Access Crisis Number [facility] Living Branch Office Access Crisis Number [address] [facility] Access Crisis Number or 911 [facility] Counseling & Guidance Service Access Crisis Number [facility] Living Access Crisis Number [facility] Human Services Access Crisis Number [facility] Mental Health Program Access Crisis Number (24 hours) [facility] Mental Health Programs Access Crisis Number (24 hours) [facility] Access Crisis Number [facility] Human Services Access Crisis Number [facility] Human Services Access Crisis Number (24 hours) [facility] Mental Health Program Access Crisis Number (days) (after hours) [facility] Mental Health Access Crisis Number (days) (after hours) [facility] Behavioral Health Access Crisis Number [facility] Access Crisis Number [facility]al Health Access Crisis Number 911 [facility] Human Services Access Crisis Number Toll-free at [facility] Mental Health Access Crisis Number (days) (after hours) [facility] Living Access Crisis Number [facility] Access Crisis Number or [facility] Behavioral Health Access Crisis Number (24 hours) [facility] Access Crisis Number [facility] Access Crisis Number [facility] Living Access Crisis Number (after hours) [facility] Mental Health Access Crisis Number [facility] Behavioral Health Access Crisis Number 026 [facility] Mental [facility] Access [...] to prior living arrangement. Jeannine Pelayo PA-C [facility] [address] [address] [address] Jeannine Rivas PA-C - 08/21/2016 8:24 AM [...] and repeat CT Head. Jeannine Pelayo PA-C [facility] [address] [address] [address] Jeannine Rivas PA-C - 08/20/2016 8:16 AM PDTFormatting of this note might be different from the origin al. Neurosurgery Progress Note Hospital Day:3 Author; Jeannine Pelayo PA-C Attending Physician: Nolvia [...] sensation intact in all 4 extremities Motor: Programs Director Bicep Tricep Delt R 5 5 5 [...] without contrast. FINDINGS: Brain: Right parietal approach PHYSICIAN ALLERGIST IMMUNOLOGIST shunt catheter remains in place with slight [...] Visualized portions are unremarkable. IMPRESSION: 1. Indwelling PHYSICIAN ALLERGIST IMMUNOLOGIST shunt catheter with slight increase in ventriculomegaly. [...] and repeat CT Head. Jeannine Pelayo PA-C [facility] [address] [address] [address] Cristina Romero MD - 08/19/2016 1:52 PM PDT . Neuroscience Intensive Care Unit Attending Progress Note Attending Pager #[phone] ICU Admission Reason Most Recent Value ICU [...] seizure disorder and blindness who presented to [place] ED with increasing conf usion, found to have worsening SDH and hydrocephalus on head CT and subsequently transferred to [facility] NSICU for further management. Medical Decision Making Acute on chronic subdural hematomas/fluid collections, likely related to overdrainage of C SF/relative intracranial hypotension from PHYSICIAN ALLERGIST IMMUNOLOGIST shunt. 24 Hour Events: CT this morning [...] team members Provider Role Specialty Ipt Neurosurgery #[id number] Treatment Team Neurological Surgery Ipt Critical Care Nsicu #[id number] Treatment Team -- Code Status Code Status [...] on counseling and coordination of care.Seen with PA/PIG CONVEYOR OPERATOR Ms Rojas. Please see their note for details. I reviewed the documented findings, all data and the recent imaging available. Date of Service: 08/19/2016 Author:Cristina Osullivan MD [address] [id number] signed by Cristina Osullivan MD at 08/19/2016 [...] shunt being raised. Please page adult resident wedding consultant [phone] with questions Osvaldo Pritchett MD, PhD PGY-2, Neurosurgery 6:03 AM, 08/19/2016 ill, Stefan Wolf [facility] - 08/19/2016 5:57 AM PDTFormatting of this note might be different from the orig inal. . Neuroscience Intensive Care Unit Team Progress Note NSICU ASSIGNED #[id number] ICU Admission Reason Most Recent Value ICU [...] seizure disorder and blindness who presented to [place] ED with increasing conf usion, found to have worsening SDH and hydrocephalus on head CT and subsequently transferred to [facility] NSICU for further management. 24 Hour events - no issues overnight - head CT overnight stable and unchanged from prior - neurological exam improved and pt states she is at her baseline Active Diagnosis with Assessment & Plan Priority Class POA Nervous Acute on chronic intracranial subdural hematoma (HCC) 1 Yes Overview Known small chronic SDH (stable on CT 07/28/2016). Presented to [place] ED 08/17 with incr easing confusion, found to have profound acute enlargement of SDH to 6cm, transferred to [facility] for further mgmt Current Assessment & Plan -Intermediate level of care, may transfer to [facility], Dr Delgado -q4hr neuro checks, q4hr vitals [...] Multiple EVD placements, now s/p R occipital PHYSICIAN ALLERGIST IMMUNOLOGIST shunt placement in October [address] Delgado and team. Presented to [facility] ED 08/16 with increasing confusion, found to [...] team members Provider Role Specialty Ipt Neurosurgery #[id number] Treatment Team Neurological Surgery Ipt Critical Care Nsicu #[id number] Treatment Team -- Patient Lines/Drains/Airways Status Active [...] Service: 08/19/2016 DILMA Miranda ACNP Author:DILMA Miranda [address] [address] [place] [address]Mzgicqtdpaycth signed by DILMA Miranda at 08/19/2016 1:53 PM Nick Macario MD - 08/18/2016 11:01 PM PDT . Neuroscience Intensive Care Unit Attending Progress Note Attending Pager #[phone] ICU Admission Reason Most Recent Value ICU [...] seizure disorder and blindness who presented to [place] ED with increasing conf usion, found to have worsening SDH and hydrocephalus on head CT and subsequently transferred to [facility] NSICU for further management. Medical Decision Making Acute on chronic subdural hematomas/fluid collections, likely related to overdrainage of C SF/relative intracranial hypotension from PHYSICIAN ALLERGIST IMMUNOLOGIST shunt; chronic seizure disorder; chronic spasti city: [...] team members Provider Role Specialty Ipt Neurosurgery #[id number] Treatment Team Neurological Surgery Ipt Critical Care Nsicu #[id number] Treatment Team -- Code Status Code Status [...] Date of Service: 08/18/2016 Author:Nick Sheldon MD [address] [id number] signed by Nick Sheldon MD at 08/18/2016 11:37 PM PDTDurrant, Roseann Mancera MD - 08/18/2016 11:43 AM PDT . Neuroscience Intensive Care Unit Attending Progress Note Attending Pager #[phone] ICU Admission Reason Most Recent Value ICU [...] seizure disorder and blindness who presented to [place] ED with increasing conf usion, found to have worsening SDH and hydrocephalus on head CT and subsequently transferred to [facility] NSICU for further management. Medical Decision Making Acute on chronic subdural hematomas/fluid collections, likely related to overdrainage of C SF from PHYSICIAN ALLERGIST IMMUNOLOGIST shunt. Continue lamictal and baclofen for spasms. [...] team members Provider Role Specialty Ipt Neurosurgery #[id number] Treatment Team Neurological Surgery Ipt Critical Care Nsicu #[id number] Treatment Team -- Code Status Code Status [...] 08/18/2016 Roseann Eason MD Author:Roseann Eason MD [address] [id number] signed by Roseann Eason MD at 08/22/2016 11:53 PM Eli Pedraza ACN - 08/18/2016 6:36 AM PDT . Neuroscience Intensive Care Unit Team Progress Note NSICU ASSIGNED #[id number] ICU Admission Reason Most Recent Value ICU [...] seizure disorder and blindness who presented to [place] ED with increasing conf usion, found to have worsening SDH and hydrocephalus on head CT and subsequently transferred to [facility] NSICU for further management. 24 Hour events - admitted yesterday from [place] - stable neurological exam with no issues overnight - home baclofen and home lamictal resumed - tolerating regular diet Active Diagnosis with Assessment & Plan Priority Class POA Nervous Acute on chronic intracranial subdural hematoma (HCC) 1 Yes Overview Known small chronic SDH (stable on CT 07/28/2016). Presented to [place] ED 08/17 with incr easing confusion, found to have profound acute enlargement of SDH to 6cm, transferred to [facility] for further mgmt Current Assessment & Plan [...] Multiple EVD placements, now s/p R occipital PHYSICIAN ALLERGIST IMMUNOLOGIST shunt placement in October [address] Delgado and team. Presented to [facility] ED 08/16 with increasing confusion, found to [...] team members Provider Role Specialty Ipt Neurosurgery #[id number] Treatment Team Neurological Surgery Ipt Critical Care Nsicu #[id number] Treatment Team -- Patient Lines/Drains/Airways Status Active [...] Service: 08/18/2016 DILMA Miranda ACNP Author:DILMA Miranda [address] [address] [place] [address]Mfgdmzesauyivg signed by DILMA Miranda at 08/18/2016 9:43 [...] Tracy | | | | | | [facility] [place] | | | | | | [address] | | | | | | [phone] | | | | | | | [...] [facility] | [address] | [place] [address] | | | SERVICES, CORE | PARK [...] [facility] | [address] | [place] [address] | | | SERVICES, CORE | PARK [...] | | | LABORATORY | | | TRISTANIAN | | | SERVICES, | | | [...] the MDRD equation recommended by the | [facility] | | National Kidney Disease Education Program. [...] | + + + + + | [facility] | [address] | [place] [address] | | | RYNE ARIAS | [address] | | | + + + + + CT HEAD WO CONTRAST (08/22/2016 6:15 AM PDT) + + | Specimen | + + | | + + + + + | Narrative | Performed At | + + + | CT Head WITHOUT: 08/22/16 06:15:45 Comparison studies: August | [facility] | | 2016 CT head Clinical history: [...] | + + + + + | [facility] | [address] | [place] [address] | | | JUANA, RYNE | [address] | | | + + + + + MAGNESIUM, PLASMA (08/21/2016 6:33 AM PDT) + +-------+ + + + | Component | Value | Ref Range | Performed | Pathologist | | | | | At | Signature | + +-------+ + + + | MAGNESIUM,P | 2.2 | 1.8 - 2.5 mg/dL | [facility] | | | LASMA | | | [...] | + + + + + | [facility] [employer] | [address] | [place] [address] | | | SERVICES, CORE | HAY[address]E [...] | | | LABORATORY | | | TRISTANIAN | | | SERVICES, | | | [...] [facility] | [address] | [place] [address] | | | SERVICES, CORE | PARK [...] [facility] | [address] | [place] [address] | | | SERVICES, CORE | [address] | | | + + + + + MAGNESIUM, PLASMA (08/20/2016 6:42 AM PDT) + +-------+ + + + | Component | Value | Ref Range | Performed | Pathologist | | | | | At | Signature | + +-------+ + + + | MAGNESIUM,P | 2.3 | 1.8 - 2.5 mg/dL | [facility] | | | [facility]AS[facility] | | | [...] [facility] | [address] | [place] [address] | | | SERVICES, CORE | PARK [...] | | | LABORATORY | | | TRISTANIAN | | | SERVICES, | | | [...] the MDRD equation recommended by the | [facility] | | National Kidney Disease Education Program. [...] | + + + + + | [facility] | [address] | [place] [address] | | | SERVICES, RYNE | [address] [...] Brain: | | | Right parietal approach PHYSICIAN ALLERGIST IMMUNOLOGIST shunt catheter remains in place with slight [...] unremarkable. IMPRESSION: 1. | | | Indwelling PHYSICIAN ALLERGIST IMMUNOLOGIST shunt catheter with slight increase in ventriculomegaly. [...] Note | + + | Service Account, [employer]Know[employer] In Interface - 08/19/2016 10:00 AM PDT EXAM: CT head | | without contrastHISTORY: Subdural hematoma and hydrocephalus, shunted | | hydrocephalusCOMPARISON: Multiple previous exams, the most recent an outside CT head | | from 08/17/2016TECHNIQUE: CT of the head without contrast.FINDINGS:Brain: Right parietal | | approach PHYSICIAN ALLERGIST IMMUNOLOGIST shunt catheter remains in place with slight [...] Visualized portions are unremarkable.IMPRESSION:1. | | Indwelling PHYSICIAN ALLERGIST IMMUNOLOGIST shunt catheter with slight increase in ventriculomegaly.2. Redemonstration | | of low-density subdural fluid collections with dependent hematocrit levels, likely | | representing a combination of subdural hygromas and acute hematomas.I have personally | | reviewed the images and, if necessary, edited the report. I agree with the report as | | now presented. | |IMPRESSION: | | | |1. Indwelling PHYSICIAN ALLERGIST IMMUNOLOGIST shunt catheter with slight increase in ventriculomegaly. [...] + + + + + | [facility] | [address] | [place] [address] | | | SERVICES, CORE | HAYDEE [...] [facility] | [address] | [place] [address] | | | SERVICES, CORE | PARK [...] | | | LABORATORY | | | TRISTANIAN | | | SERVICES, | | | [...] + + + + + | [facility] | [address] | [place] [address] | | | SERVICES, CORE | HAYDEE [...] [facility] | [address] | [place], [place] | | | BOB POINT OF CARE | [address] | [address] | | | TESTS | | | [...] + + + + + | [facility] | [address] | [place] [address] | | | SERVICES, CORE | HAYDEE [...] [facility] | [address] | [place] [address] | | | RYNE ARIAS | [address] [...] | | | LABORATORY | | | TRISTANIAN | | | SERVICES, | | | [...] + + + + + | [facility] | [address] | [place] [address] | | | JUANA, RYNE | [address] [...] [facility] | [address] | [place], [place] | | | KURT ROJAS OF CARE | [address] | [address] | | | TESTS | | | [...] DEPT OF | [address] | [place], [place] | | | CARDIOLOGY | [address] | [address] | | + + + + + [...] [facility] | [address] | [place], [place] | | | KURT ROJAS OF CARE | [address] | [address] | | | TESTS | | | [...] | + + + + + | [facility] | [address] | [place] [address] | | | SERVICES, CORE | HAYDEE [...] [facility] | [address] | [place] [address] | | | SERVICES, CORE | PARK [...] [facility] | [address] | [place] [address] | | | RYNE ARIAS | [address] [...] | + + + + + | [facility] | [address] | [place] [address] | | | RYNE ARIAS | [address] [...] [facility] | [address] | [place] [address] | | | SERVICES, CORE | PARK [...] | | | LABORATORY | | | TRISTANIAN | | | SERVICES, | | | [...] LABORATORY | [address] | [place] [address] | | | SERVICES, CORE | PARK [...] | + + + + + | [facility] | [address] | [place] [address] | | | SERVICES, | [address] [...] [facility] | [address] | [place] [address] | | | JUANA, | [address] [...]
--- OUTSIDE RECORDS SUMMARY | ~2019-10-25 | XMS | Encounter Summary ---
Demographics + + + | Address | [address] | | | [place] [address] | + + + | Home Phone | | + + + | Preferred Language | Unknown | + + + | Marital Status | Single | + + + | Pentecostal Affiliation | NRP | + + + [...] [place] | | | | | [address] | | + + + + + | Scott Mcgarry ECON | Unknown | | + + + + + Care Team Providers + +------+ + | Care Customer Acquisition Specialist Name | Role | Phone | [...] | | | | Obstructive | Kristen E, | [address] | | | | | | [place] [address] | [address] | | | | | hydrocephalu | [address] | Boris Tompkins | | | | | s (HCC) | [place], [place] | Research | | | | | Procedures | [address] | Center | | | | | MRI BRAIN WO | Phone: | [place], [place] | | | | | AND CINE | [phone] | [address] | | | | | 3RD | Fax: | Phone: | | | | | VENTRICULOST | [phone] | [phone] | | | | | RITA | | Fax: | | | | | | | [phone] | +--------+--------+ + + + + Encounter Details +--------+ + + + + | Date | Type | Department | Care Team | Description | +--------+ + + + + | 10/25/ | Hospital | Diagnostic Imaging | | | | 2016 | Encounter | Services at [facility] | | | | | | [address] | | | | | | Jaida Tompkins | | | | | | Research Center | | | | | | [facility] [place] | | | | | | [address] | | | | | | [phone] | | | +--------+ + + + [...] Tracy | | | | | | [place], [place] | | | | | | [address] | | | | | | [phone] | | | | | | | | +--------+---------+ + + + documented as of this encounter Procedures + +--------+ + + + | Procedure Name | Priori | Date/Time | Associated Diagnosis | Comments | | | ty | | | | + +--------+ + + + | MRI BRAIN WO AND | Routin | 10/26/2015 | Obstructive | Results for this | | CINE 3RD | e | 2:52 PM | hydrocephalus | procedure are in [...] | | | | | | MDAuthor: AVANI | | | | | | [...] AVANI | | | | | | LJ 10/27/2015 9:31 AM | | | | [...] | | + +---------+ + + | [facility] DEPARTMENT OF | | | | | RADIOLOGY | | | | + +---------+ + + documented in this encounter Visit Diagnoses + + | Diagnosis | + + | Obstructive hydrocephalus (HCC) Obstructive hydrocephalus | + + documented in this encounter"
--- OUTSIDE RECORDS SUMMARY | ~2019-10-25 | XMS | Encounter Summary ---
Demographics + + + | Address | [address] | | | [place] [address] | + + + | Home Phone [...] + + + | Author | [facility] | + + + | Organization | [facility] | + + + | Address | Unknown | + + + | Phone | Unavailable | + + + Support + + + + + | Name | Relationship | Address | Phone | + + + + + | Malina Nicole | ECON | [address] | | | | | [place] | | | | | [address] | | + + + + + | Scott Mcgarry ECON | Unknown | | + + + + + Care Team Providers + +------+ + | Care Char Puller Name | Role | Phone | + [...] Description | +--------+---------+ + + + | 02/07/ | Surgery | [address]A Intra Op [address] | Nolvia Delgado, | left ENDOSCOPIC | | 2014 | | [address] | [address] | THIRD | | | | Rd [facility] Main | [place], [place] | [facility] | | | | Hospital Admitting | [address] | | | | | Desk Located on the | [phone] | | | | | 9th floor | | | | | | [place], [place] | | | | | | [address] | | | +--------+---------+ + + + [...] Delgado MD PCP: REENA Gusman Service: [facility] Neurosurgery Diagnoses Principal Final Diagnosis: 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 Status post prior endoscopic third ventriculostomy x2. Additional Diagnoses: Past Medical History: Epilepsy, partial (HCC) Cerebral palsy (HCC) Spastic quadriparesis (HCC) H/O hydrocephalus S/P placement of VNS (vagus nerve stimulation)* 2001 Seizures (HCC) Legally blind Procedures Redo left frontal approach for an endoscopic third ventriculostomy 02/07/15 Brief Hospital Course Rin Casas is a 44 y.o. 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 She is status post prior endoscopic third ventriculostomy x 2.The patien t was admitted to [facility], electively on 02/07/2015 for a Redo left [...] Up Appointments: Follow Up Follow up at [facility] Neurosurgery Clinic, [facility], 8th Floor, [address] [facility], [place] [address]; with Kristen Chang in 2 weeks for [...] discharge as appropriate: BP: 139/79 mmHg (02/08/15 07) Pulse: 103 (02/08/15 07) Resp: 22 ( 02/08/15699) Weight: 95.255 kg (210 lb) (02/07/15 09) Discharge Patient To: Home Does patient have a planned readmission: No Discharge Summary Completed?: Yes. 02/08/2015 Discharging Provider: Davina Gee MD Date Completed: 02/08/2015 Time Completed: 8:10 AM Discharging Attending: Nolvia Delgado MD [facility] [address] [id number] [address] documented in this en counter Discharge Instructions [...] The patient and her mother were agreeable. Toni, Davina Luna MD - 02/08/2015 8:08 AM PSTFormatting of [...] Shift I/O/Drains Last 3 Completed Shifts 02/07 07 - 02/08 0700 In: 2515 [I.V.:2515] Out: 1295 [Urine:1295] @DRAINICPVALUESHEIT@ Physical Exam: Awake, alert, oriented to self, time, place, situation PERRL, restricted lateral gaze bilaterally and upgaze Face symmetric Tongue midline No pronator drift Strength 5/5 BUE and BLE, baseline RLE DF and PF 2/5 Incision c/d/i. No surrounding erythema, swelling or drainage. Labs: Complete Blood Count/Coags Recent Labs 02/07/15 0936 02/08/15412 WBC 13.12* 17.34* HB 15.1 13.4 HCT 45.8 41.3 PLT 302 286 Invalid input(s): INR CSF Results No results for input(s): WBCCSF, RBCCSF, GLUCOSECSF, PROTEINCSF in the last 8640 hours. Chemistry Recent Labs 02/08/15412 NA 142 K 3.9 [...] Gee MD PGY-2, Neurosurgery 8:08 AM, 02/08/2015 Rian Negro ACNP - 1 04/10/2014 5:47 AM PST [...] -sBP goal < 160mmHg -PRN aHTN per MAY to achieve goal Respiratory # no active issues -maintain O2 > 92% -aggressive pulmonary toilet -mobilize to cardiac chair FEN/GI # no active issues -diet: regular -GI prophylaxis n/a -NSICU bowel protocol -K and Mg SS per MAY, continue to monitor and replace electrolytes PRN [...] time is exclusive of procedures. 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 , PhD [facility] DEPARTMENT: [id number] ICU NEURO Place of Service:- Inpatient Date of Service: 02/07 CSN: [id number] Suggested Modifier: Suggested CPT: TO CHEMICAL COMPOUNDER HELPER RELEVANT DATA: Last Vitals: BP 123/59 | [...] 13.12* HB 15.1 HCT 45.8 PLT 302 [facility], Davina Luna MD - 02/07/2015 2:00 PM [facility] NEUROSURGERY POST OPERATIVE CHECK Author: Davina [...] | | 2019 | Visit | | [address] | | | | | | [place], [place] | | | | | | [address] | | | | | | [phone] | | | | | | | [...] Nolvia Delgado MD - 02/07/2015 10:05 PM [facility] Date of Service: 02/07/2015 | | Attending Surgeon: Nolvia Delgado MD Chemistry Lab Instructor(s): Nata | | Maryann Hinojosa MD Preoperative [...] stable condition. All counts were correct x2. Dr. | | Danny was present for the critical portion of the procedure.Ricky Louie | | Azul Delgado MDFA/MODLDD: 02/07/2015 15:56:49DT: 02/07/2015 22:05:28Job #: | | [id number] was present for the critical portions of the procedure as described in | | the note for this encounter.Ricky Sanz MDOHSU 7C [id number] [facility] | | [id number], [place] [id number] | | | | | | | |Nata Hinojosa MD | | | | | |Nolvia Delgado MD | |FAH/MODL | | | | | | /[id number] | | | |I was present for the critical portions of the procedure as described in the note for this encounter. | | | |Nolvia Delgado MD | | | |Nolvia Delgado MD | |[facility] 7C NSI | |[address] | |[id number] | |[place] [address] | |[phone] | + + CBC (HEMOGRAM) ONLY (02/08/2015 [...] MIRIAM [facility] | [address] | [place] [address] | | | SERVICES, RYNE | [address] [...] valves (2.5 - 3.5) INR | JUANA, CORE | + + + + + + + + | Performing | Address | City/State/Zipcode | Phone Number | | Organization | | | | + + + + + | [facility] | [address] | [place] [address] | | | SERVICES, CORE | [address] [...] | | | LABORATORY | | | [place] | | | SERVICES, | | | [...] the MDRD equation recommended by the | [facility] | | National Kidney Disease Education Program. [...] + + + + + | [facility] | [address] | [place] [address] | | | SERVICES, CORE | [address] | | | + + + + + MAGNESIUM, PLASMA (02/08/2015 4:13 AM PST) + +-------+ + + + | Component | Value | Ref Range | Performed | Pathologist | | | | | At | Signature | + +-------+ + + + | MAGNESIUM,P | 1.8 | 1.8 - 2.5 mg/dL | MIRIAM [...] + + + + + | [facility] | [address] | [place] [address] | | | SERVICES, CORE | [address] | | | + + + + + HECTOR MORALES ONLY (02/07/2015 4:00 PM PST) + + + [...] [facility] | [address] | [place] [address] | | | SERVICES, CORE | [address] [...] + + + + + | [facility] | [address] | [place] [address] | | | SERVICES, CORE | H[address]E [...] [facility] | [address] | [place] [address] | | | SERVICES, CORE | [address] [...] + + + + + | [facility] | [address] | [place] [address] | | | SERVICES, CORE | [address]E [...] + + | [facility] | [address] | [place] [address] | | | SERVICES, CORE | [address] [...] [facility] | [address] | [place] [address] | | | SERVICES, | [address] [...] + + + + + | [facility] | [address] | [place] [address] | | | SERVICES, | [address] [...] valves (2.5 - 3.5) INR APTT | [facility], CORE | | Therapeutic Range: (75 - 120) sec | | | Heparin levels of 0.35 - 0.7 U/mL | | + + + + + + + + | Performing | Address | City/State/Zipcode | Phone Number | | Organization | | | | + + + + + | [facility] | [address] | [place] [address] | | | [facility] | [address] | | | + + + + + CARDIOLOGY (02/07/2015 12:00 AM PST) + + + | Narrative | Performed At | + + + | | | + + + documented in this encounter Visit Diagnoses + + | Diagnosis | + + | Acquired cerebral ventriculomegaly (HCC) | + + documented in this encounter Administered Medications + +--------+ +------+------+ + | Medication Order | MAR | Action | Dose | Rate | Site | | | Action | Date | | | | + +--------+ +------+------+ + | bacitracin 50,000 Units, | Given | 02/08/20 | | | Surgical | | ringers (TIS-U-JERSON) 1,000 mL | | 15 12:44 | | | Site | | INTRAPROCEDURE PRN, Starting Tue | | PM PST | | | | | 02/07/15 at 1244, Until Tue | | | | | | | 15 at 1320 | | | | | | + +--------+ +------+------+ + +---+---+ | | | +---+---+ + +-------+ +------+---+ + | bupivacaine-EPINEPHrine | Given | 02/08/20 | 1 mL | | Surgical | | (MARCAINE-EPINEPHRINE) 0.5 | | 15 12:44 | | | Site | | %-1:200,000 injection | | PM PST | | | | | INTRAPROCEDURE PRN, Starting Tue | | | | | | | 02/07/15 at 1244, Until Tue | | | | | | | 15 at 1320 | | | | | | + +-------+ +------+---+ + +---+---+ | | | +---+---+ documented in this encounter
--- OUTSIDE RECORDS SUMMARY | ~2019-10-25 | XMS | Encounter Summary ---
Demographics + + + | Address | [address] | | | [place] [address] | + + + | Home Phone [...] [place] | | | | | [address] | | + + + + + | Scott Nicole | ECON | Unknown | | + + + + + Care Team Providers + +------+ + | Care Solid Waste Collector Name | Role | Phone | + +------+ + | Rowan Cardenas PA-C | PCP | | + +------+ + Reason for Visit + + + | Reason | Comments | + + + | Follow-up visit | | + + + | Ct [...] | | | | | hydrocephalu | [facility] | Ave | | | | | s (HCC) | [facility] | [place], [place] | | | | | Procedures | Rd | [address] | | | | | [place] EST | [place], [place] | Phone: | | | | | PATIENT | [address] | [phone] | | | | | LEVEL V [place] | Phone: | Fax: | | | | | REPROGRAMMIN | [phone] | [phone] | | | | | G,PROGRAMMAB | Fax: | | | | | | LE CSF SHUNT | [phone] | | +--------+--------+ + + + + Encounter Details +--------+---------+ + + + | Date | Type | Department | Care Team | Description | +--------+---------+ + + + | 01/08/ | Office | Neurosurgery at | Danny, Talya Liang, | Hydrocephalus | | 2018 | Visit | [facility] [address] | MD [address] | (Primary Dx) | | | | Ave Center for | [place], [place] | | | | | Health and Healing, | [address] | | | | | [facility] | [phone] | | | | | floor [place], [place] | | | | | | [address] | | | | | | [phone] | | | +--------+---------+ + + + [...] + + + | Blood Pressure | 148/82 | 01/08/2018 1:08 PM | | | | | PDT | | + + + + + | Pulse | 84 | 01/08/2018 1:08 PM | | | | | PDT | | + + + + + | Temperature | 36.7 C (98.1 F) | 01/08/2018 1:08 PM | | | | | PDT [...] encounter Progress Notes Talya Delgado MD - 01/08/2018 1:15 PM PDTI performed a history and physical examination of the patient and discussed her management with the resident. I reviewed the resident s note and agree with the documented findings and plan of care. 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 The pt is sp ETV x 3 and right occip ital VPS with Strata II valve. Pt's course over the last year or so has been complicated by bilateral subdural hematomas that were treated with bl aime holes 09/2016. Her shunt was turn ed up to 2.5 when her SDH were diagnosed and then turned down to 2.0 in 05/2017. Head CT demonstrates increase in ventricular volume and decreasing complex extra-axial flui d collections. The pt reports no RAHMAN, stable spasticity. The pt has not walked in the past year but is noé ng progress with physical therapy. Past Medical History: Diagnosis Date Blindness of both eyes, impairment level not further specified Cerebral palsy (HCC) Epilepsy, partial (HCC) H/O hydrocephalus Legally blind S/P placement of VNS (vagus nerve stimulation) device 2000 Seizures (HCC) Spastic quadriparesis (HCC) (Not in a hospital admission) No Known Allergies Social History Social History Marital status: Single Spouse name: N/A Number of children: N/A Years of education: N/A Occupational History Not on file. Social History Main Topics Smoking status: Never Smoker Smokeless tobacco: Never Used Alcohol use No Drug use: No Sexual activity: Not on file Other Topics Concern Not on file Social History Narrative No narrative on file Physical Exam: BP 148/82 | Pulse 84 | Temp (Src) 36.7 C (98.1 F) (Forehead) General Appearance: NAD Neurologic: Eyes open spont, oriented, speech fluent, participates in exam briskly Pupils: 4mm bl, roving eye movements, vision not tested, no fixed EOM deficit, face symmetr ic, TM RUE spastic contractures that limit ROM but bi tri heater mechanic 5/5, the hand is curled with thumb- in-fist RLE spastic extension of the knee and ankles but can HF and KE > AG, little movement at ank les LUE spastic contractures LLE spastic extension of the knee and ankles but can HF and KE and ADF/APF > AG SILT Incision well healed Shunt interrogated and found to be at 2.0 Assessment and Plan: Rin Casas is a 47 yo F with history of shunted HCP with recent episode of overdrainin g with subdural hemorrhage requiring evacuation. The pt is making progress with her physical therapy and is not experiencing any changes to her alertness (her usual ETV/shunt failure s ymptom). Although her ventricles are increased in size from her last scan, she appears to be doing alright at this setting, so we will not tempt another SDH by turning down the shunt s etting. - Keep Strata @ 2.0 - RTC [address] head WO Mercedes Gonzalez MD PGY-5 Neurological Surgery Pager [phone] documented in this enco unter Plan of Treatment +--------+---------+ + + + | Date | Type | Specialty | Care Team | Description | +--------+---------+ + + + | 11/24/ | Office | Neurological Surgery | Talya Delgado, | | | 2019 | Visit | | [address] | | | | | | [place], [place] | | | | | | [address] | | | | | | [phone] | | | | | | | | +--------+---------+ + + + documented as of this encounter Visit Diagnoses + + | Diagnosis | + + | Hydrocephalus (HCC) - Primary Obstructive hydrocephalus | + + documented in this encounter"
--- OUTSIDE RECORDS SUMMARY | ~2019-10-25 | XMS | Encounter Summary ---
Demographics + + + | Address | [address] | | | [place] [address] | + + + | Home Phone | | + + + | Preferred Language | Unknown | + + + | Marital Status | Single | + + + | Holiness Affiliation | NRP | + + + [...] [place] | | | | | [address] | | + + + + + | Scott Nicole | ECON | Unknown | | + + + + + Care Team Providers + +------+ + | Care Front Desk Worker Name | Role | Phone | [...] | | | | | unspecified | [place], [place] | | | | | | type (HCC) | [address] | | | | | | Shunt | Phone: | | | | | | malfunction, | [phone] | | | | | | subsequent | Fax: | | | | | | encounter | [phone] | | | | | | Procedures [...] | Radiology | Diagnoses | Mk, | [place] | | | | | Shunt | [place], | Health & | | | | | malfunction, | [place] [address] | [employer] | | | | | subsequent | [address] | [address] | | | | | encounter | [address] | ANITHA HUBBARD | | | | | Hydrocephalu | [place], [place] | ROAD | | | | | s, | [address] | [place], [place] | | | | | unspecified | Phone: | [address] | | | | | type (HCC) | [phone] | Phone: | | | | | Procedures | Fax: | [phone] | | | | | CT HEAD WO | [phone] | | | | | | CONTRAST [...] Ave | | | | | Ave [facility] | [place], [place] | | | | | Health and Healing, | [address] | | | | | Building 1, 8th | [phone] | | | | | floor [place], [place] | | | | | | [address] | | | | | | [phone] | | | +--------+ + + + [...] | | 2020 | Visit | | [address] | | | | | | [place], [place] | | | | | | [address] | | | | | | [phone] | | | | | | | [...] of | | | right parieto-occipital approach CALL OR CONTACT CENTRE MANAGER shunt, unchanged in position. | | | [...] | WITHOUT CONTRAST HISTORY: concern for shunt [id number] female with past medical | | history [...] Redemonstration of right | | parieto-occipital approach CALL OR CONTACT CENTRE MANAGER shunt, unchanged in position. Redemonstration of isodense [...]
--- OUTSIDE RECORDS SUMMARY | ~2019-10-25 | XMS | Encounter Summary ---
Demographics + + + | Address | [address] | | | [place] [address] | + + + | Home Phone [...] [place] | | | | | [address] | | + + + + + | Scott Mcgarry ECON | Unknown | | + + + + + Care Team Providers + +------+ + | Care Marketing Instructor Name | Role | Phone | [...] | | | [place] [address] | [address] | | | | | hydrocephalu | [address] | [facility] | | | | | s (HCC) | [place], [place] | Research | | | | | Procedures | [address] | Center | | | | | MRI BRAIN WO | Phone: | [place], [place] | | | | | CONTRAST | [phone] | [address] | | | | | | Fax: | Phone: | | | | | | [phone] | [phone] | | | | | | | Fax: | | | | | | | [phone] | +--------+--------+ + + + + Encounter Details +--------+ + + + + | Date | Type | Department | Care Team | Description | +--------+ + + + + | 07/16/ | Inside | Diagnostic Imaging | Bernardo, | | | 2012 | Referral | Services at [facility] | REENA Hunter | | | | Order | [address] | [address] | | | | | [address] | [place], [place] | | | | | Research Center | [address] | | | | | [place], [place] | [phone] | | | | | [address] | | | | | | [phone] | | | +--------+ + + + [...] [address] | | | | | | [place], [place] | | | | | | [address] | | | | | | [phone] | | | | | | | [...]
--- OUTSIDE RECORDS SUMMARY | ~2019-10-25 | XMS | Encounter Summary ---
Demographics + + + | Address | [address] | | | [place] [address] | + + + | Home Phone | | + + + | Preferred Language | Unknown | + + + | Marital Status | Single | + + + | Advent Affiliation | NRP | + + + [...] [place] | | | | | [address] | | + + + + + | Scott Nicole | ECON | Unknown | | + + + + + Care Team Providers + +------+ + | Care Sander Wooden Pencils Name | Role | Phone | + [...] | | | | | Obstructive | Christianomed MD Azul | | | | | | | [address] | | | | | | hydrocephalu | Ave | | | | | | s ([facility]) | [place], [place] | | | | | | Procedures | [address] | | | | | | CT HEAD WO | Phone: | | | | | | CONTRAST | [phone] | | | | | | | Fax: | | | | | | | [phone] | | +--------+--------+ + + + + Reason for Visit Diagnostic Testing (Routine) +--------+--------+ + + + + | Status | Reason | Specialty | Diagnoses / | Referred By | Referred To | | | | | Procedures | Contact | Contact | +--------+--------+ + + + + | Closed | | Radiology | Diagnoses | Raslan, | | | | | | Obstructive | Christianomed MD Azul | | | | | | | [address] | | | | | | hydrocephalu | Ave | | | | | | s ([facility]) | [place], [place] | | | | | | Procedures | [address] | | | | | | CT HEAD WO | Phone: | | | | | | CONTRAST | [phone] | | | | | | | Fax: | | | | | | | [phone] | | +--------+--------+ + + + + Encounter Details +--------+ + + + + | Date | Type | Department | Care Team | Description | +--------+ + + + + | 01/08/ | Hospital | Radiology/Imaging | Nolvia Delgado, | | | 2017 | Encounter | Lab at [facility] [address] | MD [address] | | | | | [address] [facility] for | [place], [place] | | | | | Health and Healing, | [address] | | | | | [address] | [phone] | | | | | Floor [place], [place] | | | | | | [address] | | | | | | [phone] | | | +--------+ + + + [...] [address] | | | | | | [place], [place] | | | | | | [address] | | | | | | [phone] | | | | | | | | +--------+---------+ + + + documented as of this encounter Procedures + +--------+ + + + | Procedure Name | Priori | Date/Time | Associated Diagnosis | Comments | | | ty | | | | + +--------+ + + + | CT HEAD WO CONTRAST | Routin | 01/08/2018 | Obstructive | Results for this | | | e | 12:02 PM | hydrocephalus | procedure are in [...] CT HEAD WITHOUT CONTRAST HISTORY: Interval surveillance CONSTRUCTION IRONWORKER HELPER | [facility] | | shunt function COMPARISON: [...] report as now presented. Final signature: Chiquis Mcgarry | MD Levi 01/08/2018 12:17 PM Preliminary: Zeferino Garland MD Dictation initiated: Chiquis Sims MD 01/08/2018 | | | 12:13 PM | | + + + + + | Procedure Note | + + | Service Account, Hitpost Res In Interface - 01/08/2018 12:18 PM PDT EXAM: CT HEAD | | WITHOUT CONTRAST HISTORY: Interval surveillance CONSTRUCTION IRONWORKER HELPER shunt function COMPARISON: | | 08/28/2017 TECHNIQUE: [...] Sims MD 01/08/2018 12:17 PM | |Preliminary: Chiquis Sims MD | |Dictation initiated: Chiquis Sims [...]
--- OUTSIDE RECORDS SUMMARY | ~2019-10-25 | XMS | Encounter Summary ---
Demographics + + + | Address | [address] | | | [place] [address] | + + + | Home Phone | | + + + | Preferred Language | Unknown | + + + | Marital Status | Single | + + + | Christianity Affiliation | NRP | + + + | Race | White | + + + | Ethnic Group | Not or | + + + Author + + + | Author | [facility] | + + + | Organization | [facility] | + + + | Address | Unknown | + + + | Phone | Unavailable | + + + Support + + + + + | Name | Relationship | Address | Phone | + + + + + | Malina Nicole | ECON | [address] | | | | | [place] | | | | | [address] | | + + + + + | Scott Mcgarry ECON | Unknown | | + + + + + Care Team Providers + +------+ + | Care Reimbursement Director Name | Role | Phone | + +------+ + | Patricia Bowers | PCP | | + +------+ + Encounter Details +--------+ + + + + | Date | Type | Department | Care Team | Description | +--------+ + + + + | 03/11/ | Documentati | Preoperative | Kaylee Andrews, | | | 2012 | on | Medicine Clinic at | MD | | | | | [facility] | | | | | | [address] | | | | | [address] | | | | | | Mailcode: [id number] | | | | | | [facility] | | | | | | [address], [place] | | | | | | [address] | | | | | | [phone] | | | +--------+ + + + [...] | | 2019 | Visit | | [address] | | | | | | [place], [place] | | | | | | [address] | | | | | | [phone] | | | | | | | | +--------+---------+ + + + documented as of this encounter Visit Diagnoses Not on filedocumented in this encounter"
--- OUTSIDE RECORDS SUMMARY | ~2019-10-25 | XMS | Encounter Summary ---
Demographics + + + | Address | [address] | | | [place] [address] | + + + | Home Phone | | + + + | Preferred Language | Unknown | + + + | Marital Status | Single | + + + | Cheondoism Affiliation | NRP | + + + [...] [place] | | | | | [address] | | + + + + + | Scott Nicole | ECON | Unknown | | + + + + + Care Team Providers + +------+ + | Care Communication Clerk Name | Role | Phone | + +------+ + | Patricia Bowers | PCP | | + +------+ + Reason for Visit + + + | Reason | Comments | + + + | Test Results | | + + + Encounter Details +--------+ + + + + | Date | Type | Department | Care Team | Description | +--------+ + + + + | 07/21/ | Telephone | Neurosurgery at | Chang, | Test Results | | 2012 | | [facility] | [facility] | | | | | and Healing [address] | | | | | [address] [place] for | [place], [place] | | | | | Health and Healing, | [address] | | | | | [facility] | [phone] | | | | | Floor [place], [place] | | | | | | [address] | | | | | | [phone] | | | +--------+ + + + [...] [address] | | | | | | [facility], [place] | | | | | | [address] | | | | | | [phone] | | | | | | | | +--------+---------+ + + + documented as of this encounter Visit Diagnoses + + | Diagnosis | + + | Hydrocephalus (HCC) - Primary Obstructive hydrocephalus | + + | 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
--- OUTSIDE RECORDS SUMMARY | ~2019-10-25 | XMS | Encounter Summary ---
Demographics + + + | Address | [address] | | | [place] [address] | + + + | Home Phone [...] [place] | | | | | [address] | | + + + + + | Scott Mcgarry ECON | Unknown | | + + + + + Care Team Providers + +------+ + | Care Plateman Name | Role | Phone | + +------+ + | Patricia Bowers | PCP | | + +------+ + Reason for Referral Consultation (Routine) +--------+--------+ + + + + | Status | Reason | Specialty | Diagnoses / | Referred By | Referred To | | | | | Procedures | Contact | Contact | +--------+--------+ + + + + | Closed | | Orthopedics | Diagnoses | Chang, | Xavi, | | | | | Foot | Stefano Liang MD | Bettricia, | | | | | deformity, | | DPM [address] | | | | | congenital | | [address] | | | | | Right foot | | [facility] [place] | | | | | Procedures | | [address] | | | | | CONSULT TO | | Phone: | | | | | ORTHOPEDICS | | [phone] | | | | | AND | | Fax: | | | | | REHABILITATI | | [phone] | | | | | ON | | | +--------+--------+ + + + + Reason for Visit + + + | Reason | Comments | + + + | Postoperative visit | | + + + Encounter Details +--------+---------+ + + + | Date | Type | Department | Care Team | Description | +--------+---------+ + + + | 04/15/ | Office | Neurosurgery [address] | Nolvia Delgado, | Foot deformity, | | 2012 | Visit | [address] | MD [address] | congenital (Primary | | | | Physician's | [place], [place] | Dx) | | | | [place]ressa, 2nd floor | [address] | | | | | [facility] [place] | [phone] | | | | | [address] | | | | | | [phone] | | | +--------+---------+ + + + [...] + + + | Blood Pressure | 133/77 | 04/15/2012 9:19 AM | | | | | PST | | + + + + + | Pulse | 89 | 04/15/2012 9:19 AM | | | | | PST | | + + + + + | Temperature | 36.8 C (98.2 F) | 04/15/2012 9:19 AM | | | | | PST [...] + + + + | Weight | 94.3 kg (208 lb) | 04/15/2012 9:19 AM | | | | | PST | | + + + + + | Height | - | - | | + + + + + | Body Mass Index | 30.7 | 03/20/2012 6:04 AM | | | | | PST | | + + + + + documented in this encounter Progress Notes Nolvia Delgado MD - 04/15/2012 6:39 PM PSTI personally interviewed the patient, performe d the pertinent parts of the physical examination and personally formulated the plan with e resident. I agree with the residents documentation and have documented any additions or e xceptions. tefano Chang MD - 04/15/2012 9:31 AM PSTCC: FU after ETV HPI: Ms. Casas is a 41 yo female s/p ETV on 03/20/12. Since surgery she and her parents repor t she is doing much better overall. She is able to ambulate better and her mood is improved. LE spasticity and tremor have also improved. They are requesting a referral to address wors ening inversion of the left LE that is more noticeable since she is now ambulating more. Current outpatient prescriptions:lamoTRIgine 100 mg Oral tablet, Take 100 mg by mouth two t imes daily. , Disp: , Rfl: MULTIVITAMIN ORAL, Take by mouth. , Disp: , Rfl: VITAMIN B COMPLEX ORAL, Take by mouth. , Disp: , Rfl: No Known Allergies PE: Wt 94.348 kg (208 lbs)( < 3 %ile), BP 133/77, Pulse 89, Temperature 36.8 C (98.2 F). General: Awake and alert, NAD Neuro: Awake, interactive QUINTANILLA with good strength, increased tone throughout Incision CDI Imaging: NA A/P: Neuro exam stable to improved. No need for additional imaging at this time. Will place referral to orthopedics. We will see her back in clinic in 6 months. documented in this e ncounter Plan of Treatment +--------+---------+ + + + | Date | Type | Specialty | Care Team | Description | +--------+---------+ + + + | 11/24/ | Office | Neurological Surgery | Nolvia Delgado, | | | 2019 | Visit | | MD [address] | | | | | | [place], [place] | | | | | | [address] | | | | | | [phone] | | | | | | | | +--------+---------+ + + + documented as of this encounter Visit Diagnoses + + | Diagnosis | + + | Foot deformity, congenital - Primary Talipes, unspecified | + + documented in this encounter"
--- OUTSIDE RECORDS SUMMARY | ~2019-10-25 | XMS | Encounter Summary ---
Demographics + + + | Address | [address] | | | [place] [address] | + + + | Home Phone | | + + + | Preferred Language | Unknown | + + + | Marital Status | Single | + + + | Jehovah'S Witness Affiliation | NRP | + + + [...] [place] | | | | | [address] | | + + + + + | Scott Mcgarry ECON | Unknown | | + + + + + Care Team Providers + +------+ + | Care Technical Program Manager Name | Role | Phone | [...] Description | +--------+---------+ + + + | 10/10/ | Office | Neurosurgery at | Chang, | SDH (subdural | | 2017 | Visit | [facility] [address] | [facility] | hematoma) (HCC) | | | | [facility] | [address] | (Primary Dx) | | | | Health and Healing, | [place], [place] | | | | | [facility] | [address] | | | | | floor [place], [place] | [phone] | | | | | [address] | | | | | | [phone] | | | +--------+---------+ + + + [...] + + + | Blood Pressure | 105/68 | 10/10/2016 2:14 PM | | | | | PDT | | + + + + + | Pulse | 71 | 10/10/2016 2:14 PM | | | | | PDT | | + + + + + | Temperature | 36.5 C (97.7 F) | 10/10/2016 2:14 PM | | | | | [...] Weight | 95.3 kg (210 lb) | 10/10/2016 2:14 PM | | | | | PDT | | + + + + + | Height | - | - | | + + + + + | Body Mass Index | 32.89 | 09/20/2016 2:44 PM | | | | | PDT | | + + + + + documented in this encounter Progress Notes Kristen Chang PA - 10/10/2016 1:10 PM PDTFormatting of this note might be differe nt from the original. S: Ms. Casas is here for a scheduled post op [...] up visit with repeat Head CT prior. The patient denies RAHMAN's. She and her family have noted some improving in her func tion but state she is not back to her baseline and continued with L sided weakness and gait dysfunction. She is participating in PT. 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 Details Reading Physician Reading Date Result Priority MD Jaki Patrick MD 10/10/2016 10/10/2016 Narrative EXAM: CT head without contrast HISTORY: Status post aime hole drainage of subdural hemorrhage, follow up. COMPARISON: 09/20/16 TECHNIQUE: CT of the head without contrast. FINDINGS: Brain: Right occipital approach ventricular peritoneal shunt remains positioned within the left lateral ventricle as before. Size of the ventricular system is not significantly serna ged to prior imaging. Postsurgical changes of bilateral aime holes with evacuation of subd ural fluid is again noted. The associated anterior pneumocephalus is decreased. Mixed densit y extra-axial fluid pockets are not significantly changed. No midline shift. No findings o f acute intracranial hemorrhage or ischemia. Soft tissues: Postsurgical changes. Skull and skull base: No fractures . Mastoids and middle ears are unremarkable. Face/orbits: Visualized portions are unremarkable. Paranasal sinuses: Visualized portions are unremarkable. IMPRESSION: Stable postsurgical changes of bilateral aime holes with improved pneumocephalus . Mixed density extra-axial fluid collections and ventricular size not significantly changed from prior. I have personally reviewed the images and, if necessary, edited the report. I agree with the report as now presented. 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 Imaging demonstrated low-density subdural fluid collections. Pt. S/p Bburr hole drainage of subdural hematomas on 09/20/16possibly related to over-shunting. Repeat imaging stable, b ut not improved from prior. Continues with R sided weakness and gait dysfunction. P: Will have patient FU in Neurosurgery clinic in 3 weeks with repeat Head CT prior for re- evaluation. The patient and her family have been advised to contact the clinic prior to her next visit should there be any problems or concerns. They verbalized understanding and agree d with this plan. Kristen Chang PA-C NEUROSURGERY AT [facility] [address] Mailcode: [id number] [address] documented in t his encounter Plan of Treatment +--------+---------+ + + + | Date | Type | Specialty | Care Team | Description | +--------+---------+ + + + | 11/24/ | Office | Neurological Surgery | Nolvia Delgado, | | | 2019 | Visit | | [address] | | | | | | [place], [place] | | | | | | [address] | | | | | | [phone] | | | | | | | | +--------+---------+ + + + documented as of this encounter Visit Diagnoses + + | Diagnosis | + + | SDH (subdural hematoma) (HCC) - Primary Subdural hemorrhage | + + documented in this encounter"
--- OUTSIDE RECORDS SUMMARY | ~2019-10-25 | XMS | Encounter Summary ---
Demographics + + + | Address | [address] | | | [place] [address] | + + + | Home Phone [...] [place] | | | | | [address] | | + + + + + | Scott Nicole | ECON | Unknown | | + + + + + Care Team Providers + +------+ + | [employer] Sales Consultant Name | Role | Phone | + [...] | +--------+ + + + + | 10/10/ | Telephone | Neurosurgery at | Chang, | Appointment | | 2017 | | [facility] [address] | [facility] | | | | | [facility] | [address] | | | | | Health and Healing, | [place], [place] | | | | | [facility] | [address] | | | | | floor [place], [place] | [phone] | | | | | [address] | | | | | | [phone] | | | +--------+ + + + [...] [address] | | | | | | [place], [place] | | | | | | [address] | | | | | | [phone] | | | | | | | | +--------+---------+ + + + documented as of this encounter Visit Diagnoses Not on filedocumented in this encounter"
--- OUTSIDE RECORDS SUMMARY | ~2019-10-25 | XMS | Encounter Summary ---
Demographics + + + | Address | [address] | | | [place] [address] | + + + | Home Phone [...] [place] | | | | | [address] | | + + + + + | Scott Mcgarry ECON | Unknown | | + + + + + Care Team Providers + +------+ + | Care Boat Hoist Operator Helper Name | Role | Phone | + +------+ + | Patricia Stevens | PCP | | + +------+ + Reason for Visit + + + | Reason | Comments | + + + | Ventriculoperitoneal | | | shunt malfunction | | + + + AUTH/CERT +--------+--------+ [...] + + + + | 07/02/ | Emergency | [facility] Emergency | Buddy العلي, | | | 2016 | | Department [address] | | | | | | [address] | | | | | | [facility] | | | | | | [place], [place] | | | | | | [address] | | | | | | [phone] | | | +--------+ + + + [...] + + + | Blood Pressure | 130/74 | 07/02/2016 7:59 PM | | | | | PDT | | + + + + + | Pulse | 62 | 07/02/2016 7:59 PM | | | | | PDT | | + + + + + | Temperature | 36.9 C (98.4 F) | 07/02/2016 11:38 AM | | | | | PDT | | + + + + + | Respiratory Rate | 16 | 07/02/2016 7:59 PM | | | | | PDT | | + + + + + | Oxygen Saturation | 98% | 07/02/2016 7:59 PM | | | | | PDT | | + + + + + | Inhaled Oxygen | - | - | | | Concentration | | | | + + + + + | Weight | 95.3 kg (210 lb) | 07/02/2016 11:38 AM | | | | | PDT | | + + + + + | Height | 172.7 cm (5' 8") | 07/02/2016 11:38 AM | | | | | PDT | | + + + + + | Body Mass Index | 31.93 | 07/02/2016 11:38 AM | | | | | PDT | | + + + + + documented in this encounter Discharge Instructions Instructions Buddy العلي MD - 07/02/2016The neurosurgery service will arrange for foll owup with you in their clinic. Please followup with your primary care physician for referral to local neurologist for management of baclofen. Followup with primary care physician in ne xt two days. Return immediately to the emergency department for worsening symptoms. Muscle Cramps: Care Instructions Your Care Instructions A muscle cramp is when a muscle tightens up suddenly. It often occurs in the legs. A muscle cramp is also called a charley horse. Muscle cramps usually last less than a minute. However, the pain may last for several minut es. Leg cramps that occur at night may wake you up. Heavy exercise, dehydration, and being overweight can increase your risk of getting cramps. An imbalance of certain chemicals in your blood, called electrolytes, can also lead to musc le cramps. women sometimes get muscle cramps during sleep. Muscle cramps can be treated by stretching and massaging the muscle. If cramps keep coming back, your doctor may prescribe medicine that relaxes your muscles. Follow-up care is a kelley part of your treatment and safety. Be sure to make and go to all ap pointments, and call your doctor if you are having problems. It s also a good idea to know your test results and keep a list of the medicines you take. How can you care for yourself at home? Drink plenty of fluids to prevent dehydration, enough so that your urine is light yellow or clear like water. Choose water and other caffeine-free clear liquids until you feel bett er. If you have kidney, heart, or liver disease and have to limit fluids, talk with your doc tor before you increase the amount of fluids you drink. Stretch your muscles every day, especially before and after exercise and at bedtime. Reg ular stretching can relax your muscles and may prevent cramps. Do not suddenly increase the amount of exercise you get. Increase your exercise a little each week. When you get a cramp, stretch and massage the muscle. You can also take a warm shower or bath to relax the muscle. A heating pad placed on the muscle can also help. Take a daily multivitamin supplement. Take an iywy-cnv-dfrpgfu pain medicine, such as acetaminophen (Tylenol), ibuprofen (Advi l, Motrin), or naproxen (Aleve) for cramps. Read and follow all instructions on the label. Take your medicines exactly as prescribed. Call your doctor if you have any problems wit h your medicine. When should you call for help? Watch closely for changes in your health, and be sure to contact your doctor if: You get muscle cramps often that do not go away after home treatment. Your muscle cramps often wake you up at night. You do not get better as expected. Where can you learn more? To learn more about "Muscle Cramps: Care Instructions", log into your [employer] account at [email or web address]. You can enter [email or web address] in the "[email or web address] Library" search box. Not on [employer]? Review the [employer] section of your After Visit Summary for directions on ho w to sign up. Current as of: August 07, 2015 Content Version: [id number] [employer]. Care instructions adapted under license by [facility] [employer]. If you have questions about a medical condition or this instr uction, always ask your healthcare professional. [employer] disclaims any amy anty or liability for your use of this information. documented in this encounter Medications at Time [...] + + + +---------+ + + | ciprofloxacin HCl | Take 1 tablet by | 6 | 0 | 07/03/19 | | | 500 mg oral tablet | mouth every twelve | tablet | | 17 | 7 | | | hours for 3 days. | | | | | + + + +---------+ + + documented as of this encounter Plan of Treatment +--------+---------+ + + + | Date | Type | Specialty | Care Team | Description | +--------+---------+ + + + | 11/24/ | Office | Neurological Surgery | Nolvia Delgado, | | | 2019 | Visit | | MD [address] | | | | | | [place], [place] | | | | | | [address] | | | | | | [phone] | | | | | | | | +--------+---------+ + + + documented as of this encounter Procedures + +--------+ + + + | Procedure Name | Priori | Date/Time | Associated Diagnosis | Comments | | | ty | | | | + +--------+ + + + | X-RAY SHUNT EVAL | Urgent | 07/02/2016 | | Results for this | | SKULL, CHEST AND ABD | | 2:39 PM | | procedure are in the | | 2 VIEWS | | PDT | | results section. | + +--------+ + + + | URINE, MICROSCOPIC | Urgent | 07/02/2016 | | Results for this | | EXAM | | 2:23 PM | | procedure are in the | | | | PDT | | results section. | + +--------+ + + + | URINE CULTURE WORKUP | Routin | 07/02/2016 | | Results for this | | | e | 2:23 PM | | procedure are in the | | | | PDT | | results section. | + +--------+ + + + | CULTURE, URINE [facility] | Routin | 07/02/2016 | | Results for this | | | e | 2:23 PM | | procedure are in the | | | | PDT | | results section. | + +--------+ + + + | UA, DIPSTICK ONLY | Urgent | 07/02/2016 | | Results for this | | | | 2:23 PM | | procedure are in the | | | | PDT | | results section. | + +--------+ + + + | URINE SCREEN FOR | Urgent | 07/02/2016 | | Results for this | | CULTURE | | 2:23 PM | | procedure are in the | | | | PDT | | results section. | + +--------+ + + + | CT HEAD WO CONTRAST | Urgent | 07/02/2016 | | Results for this | | | | 2:02 PM | | procedure are in the | | | | PDT | | results section. | + +--------+ + + + | CBC AND AUTO DIFF | Urgent | 07/02/2016 | | Results for this | | | | 1:25 PM | | procedure are in the | | | | PDT | | results section. | + +--------+ + + + | INR | Urgent | 07/02/2016 | | Results for this | | | | 1:25 PM | | procedure are in the | | | | PDT | | results section. | + +--------+ + + + | CBC, WITH | Urgent | 07/02/2016 | | Results for this | | DIFFERENTIAL | | 1:25 PM | | procedure are in the | | | | PDT | | results section. | + +--------+ + + + | COMPLETE METABOLIC | Urgent | 07/02/2016 | | Results for this | | SET | | 1:25 PM | | procedure are in the | | (NA,K,CL,CO2,BUN,CRE | | PDT | | results section. | | AT,GLUC,CA,AST,ALT,B | | | | | | VINAY TOTAL,ALK | | | | | | PHOS,ALB,PROT TOTAL) | | | | | + +--------+ + + + | APTT (ACT. PART. | Urgent | 07/02/2016 | | Results for this | | THROMBO TIME) | | 1:25 PM | | procedure are in the | | | | PDT | | results section. | + +--------+ + + + documented in this encounter Results X-RAY SHUNT EVAL SKULL, CHEST AND ABD 2 VIEWS (07/02/2016 2:39 PM PDT) + + | Specimen | + + | | + + + + + | Narrative | Performed At | + + + | EXAM: Shunt evaluation: AP and lateral views of the skull, AP and | [facility] | | lateral views of the chest, and AP and lateral views of the abdomen | RADIOLOGY VOICE | | COMPARISON EXAM: 11/08/2015 HISTORY: Ataxia, evaluate shunt. | RECOGNITION | | FINDINGS: Skull findings: A right shunt is in place, terminating in | | | near midline. It extends down the right aspect of the head, in the | | | soft tissues, into the right neck. Chest findings: The shunt | | | extends down the right anterior chest wall into the abdomen. The | | | lungs are clear. There are no focal areas of consolidation. There | | | is no pleural effusion. The cardiomediastinal silhouette appears | | | normal. Left-sided pacer is in place. Abdomen findings: The shunt | | | extends from the right upper abdomen, terminating in the midline | | | pelvis at the level of the sacrum. The bowel gas pattern appears | | | normal. There are no dilated loops of bowel or air fluid levels. | | | No free air is identified. IUD is present. The shunt appears | | | intact. There is no evidence of shunt kinking or discontinuity. | | | IMPRESSION: No evidence of shunt kinking or discontinuity. I | | | have personally reviewed the images and, if necessary, edited the | | | report. I agree with the report as now presented. | | + + + + + | Procedure Note | + + | Service Account, Radha Carballo In Interface - 07/02/2016 2:55 PM PDT EXAM: Shunt | | evaluation: AP and lateral views of the skull, AP and lateral views of the chest, and AP | | and lateral views of the abdomenCOMPARISON EXAM: 11/08/2015HISTORY: Ataxia, evaluate | | shunt.FINDINGS: Skull findings: A right shunt is in place, terminating in near midline. | | It extends down the right aspect of the head, in the soft tissues, into the right | | neck.Chest findings: The shunt extends down the right anterior chest wall into the | | abdomen. The lungs are clear. There are no focal areas of consolidation. There is no | | pleural effusion. The cardiomediastinal silhouette appears normal. Left-sided pacer is | | in place.Abdomen findings: The shunt extends from the right upper abdomen, terminating | | in the midline pelvis at the level of the sacrum. The bowel gas pattern appears normal. | | There are no dilated loops of bowel or air fluid levels. No free air is identified. | | IUD is present.The shunt appears intact. There is no evidence of shunt kinking or | | discontinuity.IMPRESSION: No evidence of shunt kinking or discontinuity.I have | | personally reviewed the images and, if necessary, edited the report. I agree with the | | report as now presented. | | | |IMPRESSION: No evidence of shunt kinking or discontinuity. | | | | | |I have [...] | | | + +---------+ + + URINE, MICROSCOPIC EXAM (07/02/2016 2:23 PM PDT) + +---------+ + + + | Component | Value | Ref Range | Performed | Pathologist | | | | | At | Signature | + +---------+ + + + | RED CELLS | 700 (H) | 0 - 3 /hpf | [facility] | | | | | | LABORATORY | | | | | | SERVICES, | | | | | | CORE | | + +---------+ + + + | WHITE CELLS | 18 (H) | 0 - 5 /hpf | [...] | + + + + + | [facility] | [address] | [place] [address] | | | SERVICES, CORE | [address] | | | + + + + + URINE CULTURE WORKUP (07/02/2016 2:23 PM PDT) + + | Specimen | + + | Urine - Urine | | (substance) | + + + + + | Narrative | Performed At | + + + | Culture Report: Multiple organisms are present indicating probable | [facility] | | contamination or colonization not related to infection. Further | [facility] - | | work-up of these organisms may result in clinically misleading | [place] | | information due to the low numbers and /or mixture of organisms | | | present. Recollection is suggested if clinically indicated. | | + + + + + + + + | Performing | Address | City/State/Zipcode | Phone Number | | Organization | | | | + + + + + | [facility] | [address] | [place] [address] | | | [place] | | | | + + + + + CULTURE, URINE [facility] (07/02/2016 2:23 PM PDT) + + + + + + | Component | Value | Ref Range | Performed | Pathologist | | | | | At | Signature | + + + + + + | URINE | See Cx Results (A) | | [facility] | | | CULTURE | | | LABORATORY | | | [facility] [...] [facility] | [address] | [place] [address] | | | SERVICES, CORE | [address] | | | + + + + + URINE SCREEN FOR CULTURE (07/02/2016 2:23 PM PDT) + + + + + + | Component | Value | Ref Range | Performed | Pathologist | | | | | At | Signature | + + + + + + | URINE | Positive (A) | Negative | [facility] | | | [...] | + + + | Culture Screen Positive, specimen sent for culture. | [facility] | | | LABORATORY | | | SERVICES, CORE | + + + + + + + + | Performing | Address | City/State/Zipcode | Phone Number | | Organization | | | | + + + + + | [facility] | [address] | [place] [address] | | | SERVICES, CORE | [address] | | | + + + + + HECTOR MORALES ONLY (07/02/2016 2:23 PM PDT) + + + + + [...] + + + + | APPEARANCE | Mod. Cloudy | | [facility] | | | | [...] + + + + | PH(UR) | 6.0 | 5.0 - 8.0 | [facility] | | | | | | LABORATORY | | | | | | SERVICES, | | | | | | CORE | | + + + + + + | BLOOD | Large (A) | Negative | [facility] | | | [...] + + + + | LEUKOCYTE | Trace (A) | Negative | [facility] | | | ESTERASE | | | LABORATORY | | | | | | SERVICES, | | | | | | CORE | | + + + + + + | SPECIFIC | 1.014Comment: Specific | 1.005 - 1.030 | [facility] | | | GRAVITY | [place] performed by | | LABORATORY | | | | refractometry | | SERVICES, | | | | | | CORE | | + + + + + + + + | Specimen | + + | Urine - Urine | | (substance) | + + + + + + + | Performing | Address | City/State/Zipcode | Phone Number | | Organization | | | | + + + + + | [facility] [employer] | [address] | [place] [address] | | | SERVICES, CORE | [address] | | | + + + + + CT HEAD WO CONTRAST (07/02/2016 2:02 PM PDT) + + | Specimen | + + | | + + + + + | Narrative | Performed At | + + + | EXAM: CT head without contrast HISTORY: Ventriculoperitoneal | [facility] | | shunt with ataxia COMPARISON: Multiple previous exams, the most | RADIOLOGY VOICE | | recent from 11/30/2015 TECHNIQUE: CT of the head without contrast. | RECOGNITION | | FINDINGS: Brain: Right posterior approach UPPER CUTTER MACHINE shunt catheter | | | in unchanged position. No significant change in marked lateral and 3rd | | | ventriculomegaly, greatest along the posterior right lateral | | | ventricle. There is associated overlying cortical mantle thinning. | | | Persistent effacement of the cerebral aqueduct. The 4th ventricle | | | remains normal in caliber. There is no midline shift or herniation. No | | | acute intracranial hemorrhage or extra-axial fluid collection. | | | Soft tissues: Unremarkable Skull and skull base: Chronic calvarial | | | remodeling is noted. Mastoids and middle ears are unremarkable. | | | Face/orbits: Visualized portions are unremarkable. Paranasal sinuses: | | | Visualized portions are unremarkable. IMPRESSION: Indwelling | | | right posterior approach UPPER CUTTER MACHINE shunt catheter with stable marked lateral | | | and 3rd ventriculomegaly. There is no evidence of acute intracranial | | | abnormality. I have personally reviewed the images and, if | | | necessary, edited the report. I agree with the report as now | | | presented. | | + + + + + | Procedure Note | + + | Service Account, [employer] In Interface - 07/02/2016 4:29 PM PDT EXAM: CT head | | without contrastHISTORY: Ventriculoperitoneal shunt with ataxiaCOMPARISON: Multiple | | previous exams, the most recent from 11/30/2015TECHNIQUE: CT of the head without | | contrast.FINDINGS:Brain: Right posterior approach UPPER CUTTER MACHINE shunt catheter in unchanged | | position. No significant change in marked lateral and 3rd ventriculomegaly, greatest | | along the posterior right lateral ventricle. There is associated overlying cortical | | mantle thinning. Persistent effacement of the cerebral aqueduct. The 4th ventricle | | remains normal in caliber. There is no midline shift or herniation. No acute | | intracranial hemorrhage or extra-axial fluid collection.Soft tissues: UnremarkableSkull | | and skull base: Chronic calvarial remodeling is noted. Mastoids and middle ears are | | unremarkable.Face/orbits: Visualized portions are unremarkable.Paranasal sinuses: | | Visualized portions are unremarkable.IMPRESSION:Indwelling right posterior approach UPPER CUTTER MACHINE | | shunt catheter with stable marked lateral and 3rd ventriculomegaly. There is no evidence | | of acute intracranial abnormality.I have personally reviewed the images and, if | | necessary, edited the report. I agree with the report as now presented. | |Face/orbits: Visualized portions are unremarkable. | |Paranasal sinuses: Visualized portions are unremarkable. | | | |IMPRESSION: | | | |Indwelling right posterior approach UPPER CUTTER MACHINE shunt catheter with stable marked lateral and 3rd ve ntriculomegaly. There is no evidence of acute intracranial abnormality. | | | | | |I have personally reviewed the images and, if necessary, edited the report. I agree with t he report as now presented. | + + + +---------+ + + | Performing | Address | City/State/Zipcode | Phone Number | | Organization | | | | + +---------+ + + | [facility] | | | | | VOICE RECOGNITION | | | | + +---------+ + + CBC AND AUTO DIFF (07/02/2016 1:25 PM PDT) + + + + + + | Component | Value | Ref Range | Performed | Pathologist | | | | | At | Signature | + + + + + + | WHITE CELL | 9.19 | 3.50 - 10.80 | [facility] | | | COUNT | | K/cu mm | LABORATORY | | | | | | SERVICES, | | | | | | CORE | | + + + + + + | RED CELL | 5.12 | 4.00 - 5.20 | [facility] | [...] + + + + | HEMATOCRIT | 48.1 (H) | 36.0 - 46.0 % | [...] + + + + | PLATELET | 272 | 150 - 400 K/cu | [facility] [...] + + + + | NEUTROPHIL | 59.1 | 50.0 - 70.0 % | [facility] | | | % | | | LABORATORY | | | | | | SERVICES, | | | | | | CORE | | + + + + + + | LYMPHOCYTE | 31.4 | 18.0 - 42.0 % | [facility] | | | % | | | LABORATORY | | | | | | SERVICES, | | | | | | CORE | | + + + + + + | MONOCYTE % | 7.5 | 3.5 - 9.0 % | [facility] | | | | | | LABORATORY | | | | | | SERVICES, | | | | | | CORE | | + + + + + + | EOS % | 1.1 | 1.0 - 3.0 % | [facility] | | | | | | LABORATORY | | | | | | SERVICES, | | | | | | CORE | | + + + + + + | BASO % | 0.7 | 0.0 - 2.0 % | [facility] | | | | | | LABORATORY | | | | | | SERVICES, | | | | | | CORE | | + + + + + + | IG% | 0.2Comment: Immature | 0.0 - 0.6 % | [...] + + + + | NEUTROPHIL | 5.43 | 1.80 - 7.70 | [facility] | | | # | | K/cu mm | LABORATORY | | | | | | SERVICES, | | | | | | CORE | | + + + + + + | LYMPHOCYTE | 2.89 | 1.00 - 4.80 | [facility] | | | # | | K/cu mm | LABORATORY | | | | | | SERVICES, | | | | | | CORE | | + + + + + + | MONOCYTE # | 0.69 | 0.10 - 0.90 | [facility] | | | | | K/cu mm | LABORATORY | | | | | | SERVICES, | | | | | | CORE | | + + + + + + | EOS # | 0.10 | 0.00 - 0.50 | [facility] | [...] + + + + | IG# | 0.02 | 0.00 - 0.03 | [facility] | [...] Performed At | + + + | New adult WBC reference ranges effective January 31, 2016. | [facility] | | Immature Granulocytes (IG) include metamyelocytes, myelocytes and | LABORATORY | | promyelocytes. Bands are not included in the IG count. Bands are | SERVICES, CORE | | included in the neutrophil count. | | + + + + + + + + | Performing | Address | City/State/Zipcode | Phone Number | | Organization | | | | + + + + + | [facility] | [address] | [place] [address] | | | SERVICES, CORE | [address] | | | + + + + + INR (07/02/2016 1:25 PM PDT) + +-------+ + + + [...] + + + + + | [facility] | [address] | [place] [address] | | | SERVICES, CORE | [address] | | | + + + + + APTT (ACT. PART. THROMBO TIME) (07/02/2016 1:25 PM PDT) + +-------+ + + + | Component | Value | Ref Range | Performed | Pathologist | | | | | At | Signature | + +-------+ + + + | APTT | 30.3 | 26.0 - 36.0 | [facility] | [...] [facility] | [address] | [place] [address] | | | RYNE ARIAS | [address] | | | + + + + + COMPLETE METABOLIC SET (NA,K,CL,CO2,BUN,CREAT,GLUC,CA,AST,ALT,BILI TOTAL,ALK PHOS,ALB,PROT TOTAL) (07/02/2016 1:25 PM PDT) + +---------+ + + + | Component | Value | Ref Range | Performed | Pathologist | | | | | At | Signature | + +---------+ + + + | GLUCOSE, | 95 [...] +---------+ + + + | CREATININE | 0.75 | 0.60 - 1.10 | [facility] | | | PLASMA | | mg/dL | LABORATORY | | | (LAB) | | | SERVICES, | | | | | | CORE | | + +---------+ + + + | EGFR | >60 | >60 mL/min | [facility] | | | - | | | LABORATORY | | | SAMOAN | | | SERVICES, | | | [...] + + + | TOTAL CO2, | 28 | 21 - 32 mmol/L | [facility] | | | PLASMA | | | LABORATORY | | | (LAB) | | | SERVICES, | | | | | | CORE | | + +---------+ + + + | CALCIUM, | 10.1 | 8.6 - 10.2 | [facility] | | | PLASMA | | mg/dL | LABORATORY | | | (LAB) | | | SERVICES, | | | | | | CORE | | + +---------+ + + + | CALCIUM(ALB | 10.0 | 8.6 - 10.2 | [facility] | | | CORRECTED) | | mg/dL | LABORATORY | | | | | | SERVICES, | | | | | | CORE | | + +---------+ + + + | BILIRUBIN | 0.4 | 0.3 - 1.2 mg/dL | [facility] | | | TOTAL | | | LABORATORY | | | | | | SERVICES, | | | | | | CORE | | + +---------+ + + + | TOTAL | 8.3 (H) | 6.4 - 8.2 g/dL | [facility] | | | PROTEIN, | | | LABORATORY | | | PLASMA | | | SERVICES, | | | (LAB) | | | CORE | | + +---------+ + + + | ALBUMIN, | 4.1 | 3.5 - 4.7 g/dL | [facility] | | | PLASMA | | | LABORATORY | | | (LAB) | | | SERVICES, | | | | | | CORE | | + +---------+ + + + | ALK PHOS | 114 (H) | 42 - 98 U/L | [facility] | | | | | | LABORATORY | | | | | | SERVICES, | | | | | | CORE | | + +---------+ + + + | AST(SGOT) | 19 | <=41 U/L | [facility] | | | | | | LABORATORY | | | | | | SERVICES, | | | | | | CORE | | + +---------+ + + + | ALT (SGPT) | 32 | <=60 U/L | [facility] | | [...] +---------+ + + + | ANION | 5 | 4 - 11 mmol/L | [facility] [...] [facility] | [address] | [place] [address] | | | RYNE ARIAS | [address] | | | + + + + + documented in this encounter Visit Diagnoses + + | Diagnosis | + + | Spasticity - Primary Abnormal involuntary movements | + + documented in this encounter Administered Medications + +--------+ +------+------+------+ | Medication Order | MAR | Action | Dose | Rate | Site | | | Action | Date | | | | + +--------+ +------+------+------+ | baclofen (LIORESAL) tablet 5 mg | Given | 07/03/19 | 5 mg | | | | 5 mg, oral, ONCE, 1 dose, Fri | | 17 7:03 | | | | | 07/02/16 at 1930 | | PM PDT | | | | + +--------+ +------+------+------+ +---+---+ | | | +---+---+ + +-------+ +--------+---+---+ | ciprofloxacin HCl (CIPRO) | Given | 07/03/19 | 500 mg | | | | tablet 500 mg 500 mg, oral, | | 17 7:54 | | | | | ONCE, 1 dose, Uriele 07/02/16 at 2015 | | PM PDT | | | | + +-------+ +--------+---+---+ +---+---+ | | | +---+---+ documented in this encounter
--- OUTSIDE RECORDS SUMMARY | ~2019-10-25 | XMS | Encounter Summary ---
Demographics + + + | Address | [address] | | | [place] [address] | + + + | Home Phone | | + + + | Preferred Language | Unknown | + + + | Marital Status | Single | + + + | Episcopal Affiliation | NRP | + + + [...] [place] | | | | | [address] | | + + + + + | Scott Mcgarry ECON | Unknown | | + + + + + Care Team Providers + +------+ + | Care Innovation Analyst Name | Role | Phone | [...] | Acute on | Kristen E, | [facility] [address] | | | | | chronic | [place] [address] | | | | | intracranial | [address] | Center for | | | | | subdural | [place], [place] | Health and | | | | | hematoma | [address] | Healing, | | | | | (HCC) | Phone: | Building 1, | | | | | Procedures | [phone] | 3rd Floor | | | | | CT HEAD WO | Fax: | [place], [place] | | | | | CONTRAST ME | [phone] | [address] | | | | | CT | | Phone: | | | | | SCAN,HEAD/BR | | [phone] | | | | | AIN,W/O | | Fax: | | | | | CONTRAST | | [phone] | | | | | MATL | | | +--------+--------+ + + + + Encounter Details +--------+ + + + + | Date | Type | Department | Care Team | Description | +--------+ + + + + | 09/23/ | 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 | Chang, | Acute on chronic | | 2017 | | [facility] [address] | REENA Hunter | intracranial | | | | Ave Center for | [address] | subdural hematoma | | | | Health and Healing, | [place], [place] | ([facility]) (Primary Dx) | | | | Building | [address] | | | | | floor [place], [place] | [phone] | | | | | [address] | | | | | | [phone] | | | +--------+ + + + [...] | | 2019 | Visit | | [address] | | | | | | [place], [place] | | | | | | [address] | | | | | | [phone] | | | | | | | | +--------+---------+ + + + documented as of this encounter Results CT HEAD WO CONTRAST (10/10/2016 1:46 PM PDT) + + | Specimen | + + | | + + + + + | Narrative | Performed At | + + + | EXAM: CT head without contrast HISTORY: Status post aime hole | [facility] | | drainage of subdural hemorrhage, follow up. COMPARISON: 09/20/16 | RADIOLOGY VOICE | | TECHNIQUE: CT of the head without contrast. FINDINGS: Brain: | RECOGNITION | | Right occipital approach ventricular peritoneal shunt remains | | | positioned within the left lateral ventricle as before. Size of the | | | ventricular system is not significantly changed to prior imaging. | | | Postsurgical changes of bilateral aime holes with evacuation of | | | subdural fluid is again noted. The associated anterior pneumocephalus | | | is decreased. Mixed density extra-axial fluid pockets are not | | | significantly changed. No midline shift. No findings of acute | | | intracranial hemorrhage or ischemia. Soft tissues: Postsurgical | | | changes. Skull and skull base: No fractures . Mastoids and middle | | | ears are unremarkable. Face/orbits: Visualized portions are | | | unremarkable. Paranasal sinuses: Visualized portions are | | | unremarkable. IMPRESSION: Stable postsurgical changes of | | | bilateral aime holes with improved pneumocephalus . Mixed density | | | extra-axial fluid collections and ventricular size not significantly | | | changed from prior. I have personally reviewed the images | | | and, if necessary, edited the report. I agree with the report as | | | now presented. | | + + + + + | Procedure Note | + + | Service Account, Radiant Res In Interface - 10/10/2016 5:54 PM PDT EXAM: CT head | | without contrastHISTORY: Status post aime hole drainage of subdural hemorrhage, follow | | up.COMPARISON: 09/20/16TECHNIQUE: CT of the head without contrast.FINDINGS:Brain: Right | | occipital approach ventricular peritoneal shunt remains positioned within the left | | lateral ventricle as before. Size of the ventricular system is not significantly | | changed to prior imaging. Postsurgical changes of bilateral aime holes with evacuation | | of subdural fluid is again noted. The associated anterior pneumocephalus is decreased. | | Mixed density extra-axial fluid pockets are not significantly changed. No midline shift. | | No findings of acute intracranial hemorrhage or ischemia. Soft tissues: Postsurgical | | changes.Skull and skull base: No fractures . Mastoids and middle ears are | | unremarkable.Face/orbits: Visualized portions are unremarkable.Paranasal sinuses: | | Visualized portions are unremarkable.IMPRESSION:Stable postsurgical changes of bilateral | | aiem holes with improved pneumocephalus .Mixed density extra-axial fluid collections | | and ventricular size not significantly changed from prior.I have personally reviewed the | | images and, if necessary, edited the report. I agree with the report as now presented. | |Skull and skull base: No fractures . Mastoids and middle ears are unremarkable. | |Face/orbits: Visualized portions are unremarkable. | |Paranasal sinuses: Visualized portions are unremarkable. | | | |IMPRESSION: | | | |Stable postsurgical changes of bilateral aime holes with improved pneumocephalus . | | | |Mixed density extra-axial fluid collections and ventricular size not significantly changed from prior. | | | | | | | | | |I have [...]
--- OUTSIDE RECORDS SUMMARY | ~2019-10-25 | XMS | Encounter Summary ---
Demographics + + + | Address | [address] | | | [place] [address] | + + + | Home Phone | | + + + | Preferred Language | Unknown | + + + | Marital Status | Single | + + + | Yazidi Affiliation | NRP | + + + | Race | White | + + + | Ethnic Group | Not or | + + + Author + + + | Author | [facility] | + + + | Organization | [facility] | + + + | Address | Unknown | + + + | Phone | Unavailable | + + + Support + + + + + | Name | Relationship | Address | Phone | + + + + + | Malina Nicole | ECON | [address] | | | | | [place] | | | | | [address] | | + + + + + | Scott Nicole | ECON | Unknown | | + + + + + Care Team Providers + +------+ + | Care Facilities Engineering Manager Name | Role | Phone | [...] Closed | | Radiology | Diagnoses | Danny | | | | | | | Nolvia Liang MD | | | | | | Communicatin | [address] | | | | | | g | Ave | | | | | | hydrocephalu | [facility] [place] | | | | | | s ([facility]) | [address] | | | | | | Procedures | Phone: | | | | | | CT HEAD WO | [phone] | | | | | | CONTRAST | Fax: | | | | | | | [phone] | | +--------+--------+ + + + + [...] Raslan, | | | | | | | Nolvia Liang MD | | | | | | Communicatin | [address] | | | | | | g | Ave | | | | | | hydrocephalu | [place], [place] | | | | | | s ([facility]) | [address] | | | | | | Procedures | Phone: | | | | | | CT HEAD WO | [phone] | | | | | | CONTRAST | Fax: | | | | | | | [phone] | | +--------+--------+ + + + + Encounter Details +--------+ + + + + | Date | Type | Department | Care Team | Description | +--------+ + + + + | 12/31/ | Hospital | Radiology/Imaging | Nolvia Delgado, | | | 2019 | Encounter | Lab at [facility] [address] | MD [address] | | | | | [address] [facility] | [place], [place] | | | | | Health and Healing, | [address] | | | | | [address] | [phone] | | | | | Floor [place], [place] | | | | | | [address] | | | | | | [phone] | | | +--------+ + + + [...] | | 2019 | Visit | | [address] | | | | | | [place], [place] | | | | | | [address] | | | | | | [phone] | | | | | | | | +--------+---------+ + + + documented as of this encounter Procedures + +--------+ + + + | Procedure Name | Priori | Date/Time | Associated Diagnosis | Comments | | | ty | | | | + +--------+ + + + | CT HEAD WO CONTRAST | Routin | 12/31/2018 | Communicating | Results for this | | | e | 11:26 AM | hydrocephalus (HCC) | procedure are in the | [...] RADIOLOGY VOICE | | 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 Mastoids and middle ears are unremarkable. Alexandra | | | holes in bilateral superior [...] as now presented. 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 Mastoids and middle ears are unremarkable. 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
--- OUTSIDE RECORDS SUMMARY | ~2019-10-25 | XMS | Encounter Summary ---
Demographics + + + | Address | [address] | | | [place] [address] | + + + | Home Phone [...] [place] | | | | | [address] | | + + + + + | Scott Nicole | ECON | Unknown | | + + + + + Care Team Providers + +------+ + | Care Pharmacist Hospital Name | Role | Phone | + [...] [facility] | | | | | [facility] | [address] | | | | | Health and Healing, | [place], [place] | | | | | [facility] | [address] | | | | | floor [place], [place] | [phone] | | | | | [address] | | | | | | [phone] | | | +--------+ + + + [...] [place] | | | | | | [address] | | | | | | [phone] | | | | | | | | +--------+---------+ + + + documented as of this encounter Visit Diagnoses Not on filedocumented in this encounter"
--- OUTSIDE RECORDS SUMMARY | ~2019-10-25 | XMS | Encounter Summary ---
Demographics + + + | Address | [address] | | | [place] [address] | + + + | Home Phone [...] [place] | | | | | [address] | | + + + + + | Scott Mcgarry ECON | Unknown | | + + + + + Care Team Providers + +------+ + | Care Swing Tender Name | Role | Phone | + [...] Grier | | | | | [facility] | [address] | | | | | Hospital Admitting | [place], [place] | | | | | Desk Located on the | [address] | | | | | 9th floor | [phone] | | | | | [place], [place] | | | | | | [address] | Floyd Richards MD | | +--------+ [...] [address] | | | | | | [place], [place] | | | | | | [address] | | | | | | [phone] | | | | | | | [...] +--------+---+---+ | glycopyrrolate (RJ) | Given | 09/15/19 | 0.4 mg [...]
--- OUTSIDE RECORDS SUMMARY | ~2019-10-25 | XMS | Encounter Summary ---
Demographics + + + | Address | [address] | | | [place] [address] | + + + | Home Phone | | + + + | Preferred Language | Unknown | + + + | Marital Status | Single | + + + | Catholic Affiliation | NRP | + + + | Race | White | + + + | Ethnic Group | Not or | + + + Author + + + | Author | [facility] | + + + | Organization | [facility] | + + + | Address | Unknown | + + + | Phone | Unavailable | + + + Support + + + + + | Name | Relationship | Address | Phone | + + + + + | Malina Nicole | ECON | [address] | | | | | [place] | | | | | [address] | | + + + + + | Scott Nicole | ECON | Unknown | | + + + + + Care Team Providers + +------+ + | Care Mold Laminator Name | Role | Phone | + [...] | | evaluation | | | | [facility] | | | | | | [address] | | | | | | [facility] | | | | | | and Healing, | | | | | | Building [address] | | | | | | [place], [place] | | | | | | [address] | | | | | | [phone] | | | +--------+ + + + [...] not have access to check in [facility], and we encourage you to [...] ch as Uber/Lyft), or public transportation. An Uber/Lyft/bus driver supervisor does not count as the responsible adult [...] it is after office hours, call the [facility] electroslag welding machine operator at [phone] and ask them to page him or h er. documented in this encounter Plan of Treatment +--------+---------+ + + + | Date | Type | Specialty | Care Team | Description | +--------+---------+ + + + | 11/24/ | Office | Neurological Surgery | Nolvia Delgado, | | | 2019 | Visit | | [address] | | | | | | [place], [place] | | | | | | [address] | | | | | | [phone] | | | | | | | | +--------+---------+ + + + documented as of this encounter Visit Diagnoses Not on filedocumented in this encounter
--- OUTSIDE RECORDS SUMMARY | ~2019-10-25 | XMS | Encounter Summary ---
Demographics + + + | Address | [address] | | | [place] [address] | + + + | Home Phone [...] [place] | | | | | [address] | | + + + + + | Scott Mcgarry ECON | Unknown | | + + + + + Care Team Providers + +------+ + | Care Sisal Picker Name | Role | Phone | + +------+ + | Patricia Stevens | PCP | | + +------+ + Encounter Details +--------+ + + + + | Date | Type | Department | Care Team | Description | +--------+ + + + + | 09/13/ | Document-Sc | UNKNOWN DEPARTMENT | Unknown . | | | 2013 | anned | [address] [facility] | | | | | | [address] | | | | | | [place], [place] | | | | | | [address] | | | +--------+ + + + [...] | | 2019 | Visit | | [address] | | | | | | [place], [place] | | | | | | [address] | | | | | | [phone] | | | | | | | | +--------+---------+ + + + documented as of this encounter Procedures + +--------+ + + + | Procedure Name | Priori | Date/Time | Associated Diagnosis | Comments | | | ty | | | | + +--------+ + + + | OUTSIDE CARDIOLOGY | | 09/13/2013 | | Results for this | | | | 12:00 AM | | procedure are in the | | | | PDT | | results section. | + +--------+ + + + | LAB REPORTS | | 09/13/2013 | | Results for this | | | | 12:00 AM | | procedure are in the | | | | PDT | | results section. | + +--------+ + + + documented in this encounter Results OUTSIDE CARDIOLOGY (09/13/2013 12:00 AM PDT) + + + | Narrative | Performed At | + + + | | | | | | + + + + + | Procedure Note | + + | Ebony Torrez - 09/13/2013 12:30 PM PDT | + + LAB REPORTS (09/13/2013 12:00 AM PDT) + + + | Narrative | Performed At | + + + | | | | | | + + + + + | Procedure Note | + + | Ebony Torrez - 09/13/2013 12:30 PM PDT | + + documented in this encounter Visit Diagnoses Not on filedocumented in this encounter"
--- OUTSIDE RECORDS SUMMARY | ~2019-10-25 | XMS | Encounter Summary ---
Demographics + + + | Address | [address] | | | [place] [address] | + + + | Home Phone | | + + + | Preferred Language | Unknown | + + + | Marital Status | Single | + + + | Mormon Affiliation | NRP | + + + | Race | White | + + + | Ethnic Group | Not or | + + + Author + + + | Author | [facility] | + + + | Organization | [facility] | + + + | Address | Unknown | + + + | Phone | Unavailable | + + + Support + + + + + | Name | Relationship | Address | Phone | + + + + + | Malina Nicole | ECON | [address] | | | | | [place] | | | | | [address] | | + + + + + | Scott Mcgarry ECON | Unknown | | + + + + + Care Team Providers + +------+ + | Care Public Address Technician Name | Role | Phone | [...] | | | | Kristen Duran, | [address] | | | | | Hydrocephalu | [place] [address] | [address] | | | | | s (HCC) | [address] | [address] | | | | | Procedures | [place], [place] | Research | | | | | MRI BRAIN WO | [address] | Center | | | | | CONTRAST | Phone: | [place], [place] | | | | | | [phone] | [address] | | | | | | Fax: | Phone: | | | | | | [phone] | [phone] | | | | | | | Fax: | | | | | | | [phone] | +--------+--------+ + + + + Reason for Visit + + + | Reason | Comments | + + + | Follow-up in | | | outpatient clinic | | + + + Encounter Details +--------+---------+ + + + | Date | Type | Department | Care Team | Description | +--------+---------+ + + + | 07/15/ | Office | Neurosurgery [address] | Nolvia Delgado, | Hydrocephalus | | 2013 | Visit | [address] | MD [address] | (Primary Dx) | | | | Physician's | [place], [place] | | | | | [facility], 2nd floor | [address] | | | | | [place], [place] | [phone] | | | | | [address] | | | | | | [phone] | | | +--------+---------+ + + + [...] + + + | Blood Pressure | 102/65 | 07/15/2012 7:49 AM | | | | | PDT | | + + + + + | Pulse | 74 | 07/15/2012 7:49 AM | | | | | PDT | | + + + + + | Temperature | 36.7 C (98.1 F) | 07/15/2012 7:49 AM | | | | | PDT [...] Weight | 95.3 kg (210 lb) | 07/15/2012 7:49 AM | | | | | PDT | | + + + + + | Height | - | - | | + + + + + | Body Mass Index | 31.47 | 06/26/2012 11:03 AM | | | | | PDT | | + + + + + documented in this encounter Progress Notes Kristen Chang PA - 07/15/2012 8:24 AM PDTS: Ms. Casas is here for a follow up vis it s/p ETV on 03/20/12. The patient reports her symptoms improved significantly post op and sa w improvement in gait quality and function. Over the last 3 weeks, the patient has noted a d eterioration in her RUE/LE coordination and strength. She reports increased difficulty eatin g and walking. She is now requiring a FWW to ambulate. BP 102/65 | Pulse 74 | Temp 36.7 C (98.1 F) | Wt 95.255 kg (210 lb) O: Gen: 42 y/o Female NAD Neuro: A + O x 3, PERRL, Motor Delt Bicep Tricep Broadcast Transmitter Operator Intrinsic RUE 4+ 5 5 4 3 LUE 5 5 5 4 3 HF KE KF DF PF EHL RLE 4 4 4 2 2 2 LLE 5 5 5 4 4 4 Coordination: Dysmetria BUE/LE - Right severe, Left moderate A: 42 y/o Female s/p ETV on 03/20/12 with new onset neurologic deterioration, decreased func tion P: Plan formulated with Dr. Delgado- recommend repeat MRI Brain BFFE with ETV protocol. Will review imaging and will call patient re results and plan [facility] [address] [facility] Mailcode: [id number] [place] [address] documented in t his encounter Plan of Treatment +--------+---------+ + + + | Date | Type | Specialty | Care Team | Description | +--------+---------+ + + + | 11/24/ | Office | Neurological Surgery | Nolvia Delgado, | | | 2019 | Visit | | [address] | | | | | | [place], [place] | | | | | | [address] | | | | | | [phone] | | | | | | | [...] | PDT | + +---------+--------+ + + + +---------+--------+ + + | Name | Type | Priori | Associated Diagnoses | Order Schedule | | | | ty | | | + +---------+--------+ + + | MRI BRAIN WO | Imaging | Routin | Hydrocephalus | Expected: | | CONTRAST | | e | | 07/15/2012, Expires: | | | | | | 08/15/2013 | + +---------+--------+ + + documented as of this encounter Visit Diagnoses + + | Diagnosis | + + | Hydrocephalus (HCC) - Primary Obstructive hydrocephalus | + + documented in this encounter"
--- OUTSIDE RECORDS SUMMARY | ~2019-10-25 | XMS | Encounter Summary ---
Demographics + + + | Address | [address] | | | [place] [address] | + + + | Home Phone | | + + + | Preferred Language | Unknown | + + + | Marital Status | Single | + + + | Spiritism Affiliation | NRP | + + + [...] [place] | | | | | [address] | | + + + + + | Scott Mcgarry ECON | Unknown | | + + + + + Care Team Providers + +------+ + | Care Clinical Research Administrator Name | Role | Phone | + [...] Description | +--------+---------+ + + + | 09/20/ | Surgery | 6A Intra Op [address] | Nolvia Delgado, | BILATERAL AIME HOLES | | 2017 | | [address] | [address] | FOR DRAINAGE OF | | | | Rd [facility] | [place], [place] | SUBDURAL HEMATOMA | | | | Hospital Admitting | [address] | | | | | Desk Located on the | [phone] | | | | | 9th floor | | | | | | [place], [place] | | | | | | [address] | | | +--------+---------+ + + + [...] Nolvia Delgado MD PCP: REENA Gusman Service: [facility] Neurosurgery Diagnoses Principal Final Diagnosis: Bilateral chronic subdural hematomas Additional Diagnoses: Blindness History of toxoplasmosis History of recent VPS placement (Strata @ 2.5) Procedures Procedure Performed: 09/20/2016 1) Bilateral Aime Holes for evacuation of chronic [...] surgical intervention. The patient was admitted to [facility] on 09/20/2016 and underwent Bilateral Aime Holes for evacuat ion of chronic subdural [...] The patient will follow up in the [facility] Neurosurgery clinic on 10/10/2016 with repeat Head [...] be on the 8th floor at the [facility] on the [facility] located at [address] [place] [address]. Please call [phone] if you have any questions or concerns before your appointment time. You will need to obtain a head CT prior to this appointment at 12:45pm on the 3rd floor at [facility]. PCP:REENA Gusman When: Please follow-up with [...] Signs at discharge as appropriate: BP: 105/65 (09/24/16 0743) Pulse: 82 (09/24/16 0743) Resp: 16 ( 0743) Weight: 95.6 kg (210 lb 12.2 oz) (09/21/16 0300) Discharge Patient To: Home Does patient have a planned readmission: No Discharge Summary Completed?: Yes. 09/24/2016 Discharging Provider: Dimple Sage PA-C Date Completed: 09/24/2016 Time Completed: 10:50 AM Discharging Attending: Nolvia Delgado MD [facility] [id number] [id number] documented in this encounter Medications at Time [...] this AM. Would like to go home tod ay and have outpatient PT. -Large BM yesterday [...] in all 4 extremities Motor: Tri Bi Travel Attendants HF KF KE APF ADF Left 5 [...] today with OP PT Dimple Sage PA-C [facility] [address]K [address] [facility] [address] Kristen Cazares PA - 09/23/2016 8:22 AM [...] Delivery Device: None (room ai r) (09/23/16 0414) 24 Hour Vital Min/Max: Systolic (24hrs), Av , Min:104 , Max:123 Diastolic (24hrs), Av, Min:56, Max:75 Pulse Min: 86 Max: 102 Temp Min: 37 C (98.6 F) Max: 38 C (100.4 F) Resp Min: 16 Max: 16 SpO2 Min: 90 % Max: 93 % Intake/Output Summary (Last 24 hours) at 09/23/16 08 Last data filed at 09/23/16 0630 Gross [...] - 1.10 mg/dL 0.55 (L) EGFR - CH[facility]IAN Latest Ref Range: >60 mL/min >60 EGFR NON -CHADIAN Latest Ref Range: >60 mL/min >60 GLUCOSE, [...] post op with repeat Head CT prior. REENA Hart-Fiordaliza [facility] [address]K [address] [address] [id number] MEDICATIONS Current Facility-Administered Medications Medication acetaminophen (TYLENOL) [...] M.D., M.P.H. Neurological Surgery Resident PGY-1 Pager: [phone] Cindy Rangel ACN - 09/21/2016 4:20 PM PDT . Neuroscience Intensive Care Unit Team Progress Note NSICU ASSIGNED #[id number] ICU Admission Reason Most Recent Value ICU [...] Multiple EVD placements, now s/p R occipital GRANT ADMINISTRATOR shunt placement in October [address] [...] team members Provider Role Specialty Ipt Neurosurgery #[id number] Treatment Team Neurological Surgery Ipt Critical Care Nsicu #[id number] Treatment Team -- Patient Lines/Drains/Airways Status Active [...] Date of Service: 09/21/2016 Cindy Flores NP [facility] DEPARTMENT: ANE ICU NEURO Place of Service:- Inpatient CSN: [id number] Suggested Modifier: None Suggested CPT: TO SUSTAINABILITY CONSULTANT Cindy Flores NP Author:Cindy Flores NP [address] [id number] signed by DILMA Wade at 09/21/2016 4:28 PM PD Sujata Webster MD - 09/21/2016 12:21 PM PDTFormatting of this note might be different f rom the original. . Neuroscience Intensive Care Unit Attending Progress Note Attending Pager #[phone] ICU Admission Reason Most Recent Value ICU [...] team members Provider Role Specialty Ipt Neurosurgery #[id number] Treatment Team Neurological Surgery Ipt Critical Care Nsicu #[id number] Treatment Team -- Code Status Code Status [...] on counseling and coordination of care.Seen with PA/SIZE CHANGER Nathalie Sandra. Please s ee their note for details. I reviewed the documented findings, all data and the recent imagi ng available. Date of Service: 09/21/2016 EPIC DEPARTMENT: ANE ICU NEURO Place of Service:- Inpatient CSN: [id number] Suggested Modifier: GC - Resident Involved Suggested CPT: TO SUSTAINABILITY CONSULTANT Author:Sujata Saba MD [address] [id number] signed by Sujata Saba MD at 09/21/2016 12:22 PM Bebeto Peres MD - 09/21/2016 9:29 AM PDTFormatting of [...] In: 3954.2 [P.O.:200; I.V.:3654.2] Out: 3055 [Urine:2905] @DRAINICPVALUESHEIGHT@ Physical Exam: Awake, alert, oriented to [...] spasticity in clinic so she underwent B/L aime holes for drainage of SDH on 09/20. She is recovering well. Plan: -freq neuro checks -flat until 6pm -consider transfer in PM Please page adult resident strategic communications specialist [phone] with questions Bebeto Sanders MD Neurological Surgery PGY2 Osvaldo Marcos M D - 09/20/2016 6:17 PM PDT NEUROSURGERY POST OPERATIVE CHECK Author: Osvaldo Barclay MD Date: 09/20/16 PROCEDURE: Bilateral [place] Holes for evacuation of chronic subdural hematomas [...] Barclay MD Neurosurgery, PGY-2 On-call resident pager [phone] 6:17 PM 09/20/2016 Nata Golden M D - 09/20/2016 2:11 PM PDTHistory and Physical Update 09/20/2016 Patient's history and physical has been reviewed with patient. There have been no changes s chandni last seen by neurosurgery team. Proceed with planned operation. Patient is blind and c annot write. Consent obtained with [place] [id number] Chief Resident Neurological Surgery documented in thi s encounter Plan of Treatment +--------+---------+ + + + | Date | Type | Specialty | Care Team | Description | +--------+---------+ + + + | 11/24/ | Office | Neurological Surgery | Danny Nolvia Liang, | | | 2019 | Visit | | [address] | | | | | | [place], [place] | | | | | | [address] | | | | | | [phone] | | | | | | | [...] 09/20/2016 | | Attending Surgeon:Nolvia Delgado MD Rodding Machine Tender(s):Nata | | MD Ashish Preoperative Diagnoses: 1.Bilateral [...] | obtain meticulous hemostasis. Using a high-speed production machine shop supervisor drill, 2 bur holes were | | [...] used to coagulate the skin edges. A production machine shop supervisor drill was used to make these 2 [...] end x2.Nata Wolf | | Ricky Hinojosa MDFA/MODLDD: 09/23/2016 10:18:38DT: 09/23/2016 | | 13:02:59Job #: [id number] | |Nata Hinojosa MD | | | | | |Nolvia Delgado MD | |FAH/MODL | | | | | | /[id number] | + + CBC (HEMOGRAM) ONLY (09/23/2016 [...] [facility] | [address] | [place] [address] | | | SERVICES, CORE | HAYDEE [...] | | | LABORATORY | | | CHADIAN | | | SERVICES, | | | [...] | + + + + + | [facility] | [address] | [place] [address] | | | SERVICES, RYNE | HAYDEE [...] | + + + + + | [facility] | [address] | [place] [address] | | | SERVICES, RYNE | PARK [...] [facility] | [address] | [place], [place] | | | BBO POINT OF CARE | [facility] | [address] | | | TESTS | | | [...] | 0.00 | 0.00 - 0.02 | [facility] | | | | | K/cu mm [...] | + + + + + | [facility] | [address] [facility] [facility] [address] | [place] [address] | | | SERVICES, CORE | PARK [...] | | | LABORATORY | | | CHADIAN | | | SERVICES, | | | [...] | + + + + + | [facility] | [address] | [place] [address] | | | SERVICES, CORE | PARK [...] | + + + + + | [facility] | [address] | [place] [address] | | | SERVICES, CORE | HAYDEE [...] + + + + + | [facility] | [address] | [place], [place] | | | [facility] | [address] | [address] | | | TESTS | | | [...] | + + + + + | [facility] | [address] | [place] [address] | | | SERVICES, CORE | HAYDEE [...] | | | LABORATORY | | | CHADIAN | | | SERVICES, | | | [...] [facility] | [address] | [place] [address] | | | SERVICES, CORE | [address] | | | + + + + + INR (09/21/2016 12:34 AM PDT) + +-------+ + + + | Component | Value | Ref Range | Performed | Pathologist | | | | | At | Signature | + +-------+ + + + | INR | 1.04 | 0.90 - 1.20 INR | [facility] [...] | + + + + + | [facility] | [address] | [place] [address] | | | SERVICES, CORE | HAYDEE [...] Note | + + | Service Account, [employer] In Interface - 09/20/2016 8:06 PM [...] + + + + | [facility] | [address] | [place], [place] | | | [facility] | [address] | [address] | | | TESTS | | | | + + + + + PROCEDURE NOTE (09/20/2016 5:42 PM PDT) + + + | Narrative | Performed At | + + + | Nata Hinojosa MD 09/20/2016 5:42 PM INPATIENT BRIEF | | | OPERATIVE NOTE Procedure Date: 09/20/2016 Author: Nata Mcgarry | Zeferino Hinojosa MD Attending Physician: Nolvia Delgado MD Assistants: | [...] Luis F Hinojosa MD | | | [address] Chief Resident Neurosurgery | | + + [...] [facility] | [address] | [place], [place] | | | [facility] | [address] | [address] | | | TESTS | | | [...] + | Diagnosis | + + | Hemorrhage, subdural, nontraumatic (HCC) Subdural hemorrhage | + + documented in this encounter [...] +--------+ +--------+------+------+ +-------+ +--------+---+---+ | Given | 09/23/19 | 325 mg | | | | | 17 12:16 | | | | | | AM PDT | | | | +-------+ +--------+---+---+ +---+---+ | | | +---+---+ + +-------+ + +---+ + | bacitracin 50,000 Units, | Given | 09/21/19 | 1,010 mL | | Surgical | | ringers (TIS-U-JERSON) 1,000 mL | | 17 4:46 | | | Site | | INTRAPROCEDURE PRN, Starting Fri | | PM PDT | | | | | 09/20/16 at 1600, Until 09/20/16 | | | | | | | at 1759 | | | | | | + +-------+ + +---+ + +-------+ + +---+ + | Given | 09/21/19 | 1,010 mL | | Surgical | | | 17 4:01 | | | Site | | | PM PDT | | | | +-------+ + +---+ + | Given | 09/21/19 | 1,010 mL | | Surgical | | | 17 4:00 | | | Site | | | PM PDT | | | | +-------+ + +---+ + +---+---+ | | | +---+---+ + +-------+ +---------+---+ + | bacitracin ointment | Given | 09/21/19 | 1 strip | | Surgical | | INTRAPROCEDURE PRN, Starting Fri | | 17 5:31 | | | Site | | 09/20/16 at 1731, Until 09/20/16 | | PM PDT | | | | | at 1759 | | | | | | + +-------+ +---------+---+ + +---+---+ | | | +---+---+ + +-------+ +------+---+---+ | baclofen (LIORESAL) tablet 5 mg | Given | 09/25/19 | 5 mg | | | | 5 mg, oral, DAILY, First dose | | 17 8:39 | | | | | (after last modification) on Sun | | AM PDT | | | [...] | | | | | dose on Fri09/23/16 at 0845, | | AM PDT | | | | | Until Discontinued | | | | | | + +-------+ +------+---+---+ +---+---+ | | | +---+---+ + +-------+ +------+---+ + | bupivacaine-EPINEPHrine | Given | 09/21/19 | 8 mL | | Surgical | | (MARCAINE-EPINEPHRINE) 0.5 | | 17 4:00 | | | Site | | %-1:200,000 injection | | PM PDT | | | | | INTRAPROCEDURE PRN, Starting Fri | | | | | | | 09/20/16 at 1600, Until Fri09/20/16 | | | | | | | at 1759 | | | | | | + +-------+ +------+---+ + +---+---+ | | | +---+---+ + +-------+ +-------+---+---------+ | enoxaparin (LOVENOX) injection | Given | 09/24/19 | 40 mg | | Abdomen | | 40 mg 40 mg, subcutaneous, EVERY | | 17 9:39 | | | | | EVENING, First dose (after last | | PM PDT | | | | | modification) on Fri09/22/16 at | | | | | | [...] 6 HOURS NEEDED, | | | Starting Fri09/20/16 at 1645, | | | Until Fri09/24/16 [...] AM PDT | | | | | Fri09/20/16 at 2100, Until | | | | | | | Discontinued | | | | | | + +-------+ +---------+---+---+ +-------+ +---------+---+---+ | Given | 09/23/19 | 2 | | | | | 17 9:25 | tablets | | | | | PM PDT | | | | +-------+ +---------+---+---+ | Given | 07/09/20 | 2 | | | | | 17 8:06 | tablets | | | | | AM PDT | | | | +-------+ +---------+---+---+ +---+---+ | | | +---+---+ + +-------+ +--------+---+ + | thrombin 5000 unit topical | Given | 09/21/19 | 5,000 | | Surgical | | solution INTRAPROCEDURE PRN, | | 17 4:47 | Units | | Site | | Starting Fri09/20/16 at 1600, | | PM PDT | | | | | Until Fri09/20/16 at 1759 | | | | | | + +-------+ +--------+---+ + +-------+ +--------+---+ + | Given | 09/21/19 | 5,000 | | Surgical | | | 17 4:02 | Units | | Site | | | PM PDT | | | | +-------+ +--------+---+ + | Given | 09/21/19 | 5,000 | | Surgical | | | 17 4:00 | Units | | Site | | | PM PDT | | | | +-------+ +--------+---+ + +---+---+ | | | +---+---+ documented in this encounter
--- OUTSIDE RECORDS SUMMARY | ~2019-10-25 | XMS | Encounter Summary ---
Demographics + + + | Address | [address] | | | [place] [address] | + + + | Home Phone | | + + + | Preferred Language | Unknown | + + + | Marital Status | Single | + + + | Episcopalian Affiliation | NRP | + + + | Race | White | + + + | Ethnic Group | Not or | + + + Author + + + | Author | [facility] | + + + | Organization | [facility] | + + + | Address | Unknown | + + + | Phone | Unavailable | + + + Support + + + + + | Name | Relationship | Address | Phone | + + + + + | Malina Nicole | ECON | [phone] | | | | | [place] | | | | | [address] | | + + + + + | Bill Corey | ECON | Unknown | | + + + + + Care Team Providers + +------+ + | Care Management Instructor Name | Role | Phone | [...] [address] | | | | | [address] [facility] | [place], [place] | | | | | [facility], | [address] | | | | | [facility] | [phone] | | | | | floor [place], [place] | | | | | | [address] | | | | | | [phone] | | | +--------+ + + + [...] | | | | | | [place], [place] | | | | | | [address] | | | | | | [phone] | | | | | | | | +--------+---------+ + + + documented as of this encounter Visit Diagnoses Not on filedocumented in this encounter"
--- OUTSIDE RECORDS SUMMARY | ~2019-10-25 | XMS | Encounter Summary ---
Demographics + + + | Address | [address] | | | [place] [address] | + + + | Home Phone | | + + + | Preferred Language | Unknown | + + + | Marital Status | Single | + + + | Restorationist Affiliation | NRP | + + + | Race | White | + + + | Ethnic Group | Not or | + + + Author + + + | Author | [facility] | + + + | Organization | [facility] | + + + | Address | Unknown | + + + | Phone | Unavailable | + + + Support + + + + + | Name | Relationship | Address | Phone | + + + + + | Malina Nicole | ECON | [address] | | | | | [place] | | | | | [address] | | + + + + + | Scott Mcgarry ECON | Unknown | | + + + + + Care Team Providers + +------+ + | Care Product Lister Name | Role | Phone | + [...] Ct Scan | | | | | Right sided | Nolvia Liang MD | [facility] [address] | | | | | weakness | [address] | [place] | | | | | Spasticity | Ave | [address] [facility] | | | | | Decreased | [place], [place] | Hospital, | | | | | sensation | [address] | 10th Floor | | | | | Procedures | Phone: | [place], [place] | | | | | CT SPINE | [phone] | [address] | | | | | TOTAL W | Fax: | Phone: | | | | | CONTRAST | [phone] | [phone] | | | | | | | Fax: | | | | | | | [phone] | +--------+--------+ + + + + Diagnostic Testing (Routine) +--------+--------+ + + + + | Status | Reason | Specialty | Diagnoses / | Referred By | Referred To | | | | | Procedures | Contact | Contact | +--------+--------+ + + + + | Closed | | Radiology | Diagnoses | Raslan, | Rad General | | | | | Right sided | Nolvia Liang MD | [facility] [address] | | | | | weakness | [address] | [place] | | | | | Spasticity | Ave | [address] [facility] | | | | | Decreased | [facility], [place] | Hospital, | | | | | sensation | [address] | 10th Floor | | | | | Procedures | Phone: | [place], [place] | | | | | X-RAY | [phone] | [address] | | | | | MYELOGRAPHY | Fax: | Phone: | | | | | 2 [place] 3 | [phone] | [phone] | | | | | REGIONS | | Fax: | | | | | SPINAL CANAL | | [phone] | | | | | W/INJECTION | | | +--------+--------+ + + + + Encounter Details +--------+ + + + + | Date | Type | Department | Care Team | Description | +--------+ + + + + | 01/21/ | 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 | Neurosurgery [address] | Nolvia Delgado, | Right sided weakness | | [address] | | [address] | MD [address] | (Primary Dx); | | | | Physician's | [place], [place] | Spasticity; | | | | Pavilion, 2nd floor | [address] | Decreased sensation | | | | [place], [place] | [phone] | | | | | [address] | | | | | | [phone] | | | +--------+ + + + [...] Tracy | | | | | | [place], [place] | | | | | | [address] | | | | | | [phone] | | | | | | | | +--------+---------+ + + + documented as of this encounter Procedures + +--------+ + + + | Procedure Name | Priori | Date/Time | Associated Diagnosis | Comments | | | ty | | | | + +--------+ + + + | MRI CINE BRAIN WO | Routin | 02/03/2012 | | Results for this | | CONTRAST | e | 3:44 PM | | procedure are in the | | | | PST | | results section. | + +--------+ + + + documented in this encounter Results CT SPINE TOTAL W CONTRAST (02/03/2012 4:37 PM PST) + + + + + + | Component | Value | Ref Range | Performed | Pathologist | | | | | At | Signature | + + + + + + | CT SPINE | CERVICAL, THORACIC, and | | | | | TOTAL W | LUMBOSACRAL MYELOGRAM | | | | | CONTRAST | including CT of | | | | | | theCervical, Thoracic, | | | | | | and Lumbar spine: | | | | | | 02/03/12 10:24:00 and | | | | | | DelayedThoracic CT | | | | | | 02/03/12 16:31:33 | | | | | | INDICATION: Evaluate for | | | | | | syringomyelia. | | | | | | COMPARISON: None. | | | | | | OPERATORS: Dr. Samaniego | | | | | | Dr. Haris Kumar | | | | | | MEDS: None. FLUORO TIME: | | | | | | Total time: 1 minute, | | | | | | 37 seconds although | | | | | | actual fluorotime was | | | | | | substantially less | | | | | | through the use of | | | | | | pulsed fluoroscopy. | | | | | | TECHNIQUE: The patient | | | | | | was consented after the | | | | | | risks and benefitswere | | | | | | explained. A team pause | | | | | | was performed. | | | | | | Myelography of | | | | | | thecervical, thoracic, | | | | | | and lumbosacral spine | | | | | | was performed | | | | | | underfluoroscopic | | | | | | guidance using standard | | | | | | aseptic technique. | | | | | | Lumbarpuncture was | | | | | | performed at L4-5 with a | | | | | | 22 gauge spinal needle. | | | | | | 9 ccOmnipaque 300 was | | | | | | injected into the | | | | | | thecal sac under | | | | | | fluoroscopicobservation. | | | | | | Multiple views of the | | | | | | cervical, thoracic, | | | | | | andlumbosacral spine | | | | | | were then obtained. No | | | | | | immediate complications | | | | | | ofthe procedure were | | | | | | observed. The patient | | | | | | was then sent to the CT | | | | | | scanner for imaging | | | | | | through thecervical, | | | | | | thoracic, and lumbar | | | | | | spine including sagittal | | | | | | and coronalreformatted | | | | | | images. No intravenous | | | | | | contrast was | | | | | | administered. The | | | | | | patient was sent to the | | | | | | CT scanner for reimaging | | | | | | of the upperthoracic | | | | | | spine 6 hours after | | | | | | initial scanning to | | | | | | evaluate | | | | | | intrathecalfilling | | | | | | defects described below. | | | | | | FINDINGS: Splicer Apprentice | | | | | | films: Normal alignment. | | | | | | No acute fractures, | | | | | | lytic, orblastic | | | | | | lesions. Abdominal | | | | | | soft tissues | | | | | | unremarkable. CT | | | | | | MYELOGRAM FINDINGS: Good | | | | | | opacification of the | | | | | | thecal sac was obtained. | | | | | | CERVICAL SPINE: In the | | | | | | cervical spine, | | | | | | vertebral body heights | | | | | | and alignment | | | | | | aremaintained. The C1-2 | | | | | | and craniocervical | | | | | | relationships are | | | | | | maintained. C2-3 No | | | | | | significant spinal canal | | | | | | or foraminal stenosis | | | | | | C3-4 There is left | | | | | | bony neuroforaminal | | | | | | narrowing secondary | | | | | | touncovertebral and | | | | | | facet osteophytes. C4-5 | | | | | | There is mild central | | | | | | disk protrusion | | | | | | indenting but | | | | | | noteffacing the ventral | | | | | | CSF space with mild mass | | | | | | effect on the | | | | | | lefthemicord. C5-6 No | | | | | | significant spinal canal | | | | | | or foraminal stenosis | | | | | | C6-7 No significant | | | | | | spinal canal or | | | | | | foraminal stenosis C7-1 | | | | | | No significant spinal | | | | | | canal or foraminal | | | | | | stenosis Contents of | | | | | | cervical spinal canal: | | | | | | In the lower cervical | | | | | | spine, theleft hemicord | | | | | | is diminutive compared | | | | | | to the right, not due to | | | | | | masseffect, and the | | | | | | ventral median fissure | | | | | | is prominent. No mass | | | | | | orsyrinx. Soft tissues: | | | | | | There is a hypodense | | | | | | nodule in the right | | | | | | thyroid lobe;ultrasound | | | | | | is recommended for | | | | | | further evaluation, if | | | | | | not alreadyperformed. | | | | | | Left vagal nerve | | | | | | stimulator is present. | | | | | | THORACIC SPINE: T1-2 | | | | | | No significant spinal | | | | | | canal or foraminal | | | | | | stenosis In the thoracic | | | | | | spine, the vertebral | | | | | | body heights and | | | | | | alignment aremaintained. | | | | | | There is mild upper | | | | | | thoracic levocurvature | | | | | | and mild lowerthoracic | | | | | | dextrocurvature. The | | | | | | AP alignment is normal. | | | | | | There is mildmultilevel | | | | | | disk bulging and | | | | | | endplate spurring, | | | | | | greatest at T5-6 | | | | | | andT6-7. Lower | | | | | | Thoracic/Conus: Normal. | | | | | | The conus terminates | | | | | | at the inferioraspect of | | | | | | the L2 endplate. | | | | | | T12-L1: No significant | | | | | | spinal canal or | | | | | | foraminal stenosis | | | | | | Contents of THORACIC | | | | | | spinal canal: From | | | | | | T1-T3, there are | | | | | | serpiginous,lobulated | | | | | | filling defects in the | | | | | | dorsal thecal sac | | | | | | without masseffect but | | | | | | causing traction and | | | | | | mild cord deformation | | | | | | toward thefilling | | | | | | defects. At T6, T7, and | | | | | | T11, there are similar | | | | | | fillingdefects again | | | | | | with traction related | | | | | | mild cord deformation . | | | | | | No massor syrinx. No | | | | | | change in the filling | | | | | | defects is seen on | | | | | | delayed CTimages. | | | | | | Prominence of the | | | | | | ventral median fissure | | | | | | is noted. Soft tissues: | | | | | | The visualized portions | | | | | | of the lungs are clear. | | | | | | Thevisualized portions | | | | | | of the liver are | | | | | | unremarkable. There is | | | | | | | | | | | | layeringcholecystolithia | | | | | | sis without gallbladder | | | | | | wall thickening. There | | | | | | is asolitary | | | | | | nonobstructing 3-mm | | | | | | inferior right renal | | | | | | calculus. The | | | | | | leftkidney is | | | | | | unremarkable. The | | | | | | visualized portions of | | | | | | the spleen,pancreas, | | | | | | adrenal glands, inferior | | | | | | vena cava, aorta, and | | | | | | bowel areunremarkable. | | | | | | There is a small axial | | | | | | hiatal hernia. LUMBAR | | | | | | SPINE: In the lumbar | | | | | | spine, the vertebral | | | | | | body heights and | | | | | | alignment aremaintained. | | | | | | There is mild diffuse | | | | | | canal stenosis from L2-3 | | | | | | caudally,secondary to | | | | | | congenitally short | | | | | | pedicles with | | | | | | superimposed stenosesat | | | | | | multiple levels as | | | | | | follows: L1-2: No | | | | | | significant spinal canal | | | | | | or foraminal stenosis | | | | | | L2-3: There is mild | | | | | | disk space height loss. | | | | | | There is mildbilateral | | | | | | neuroforaminal | | | | | | narrowing secondary to | | | | | | facet hypertrophy.There | | | | | | is circumferential disk | | | | | | bulging with mild | | | | | | lateral recessnarrowing | | | | | | and canal stenosis. | | | | | | L3-4: There is mild | | | | | | disk space height loss. | | | | | | There is mildbilateral | | | | | | neuroforaminal | | | | | | narrowing secondary to | | | | | | facet hypertrophy.There | | | | | | is circumferential disk | | | | | | bulging and ligamentum | | | | | | flavumhypertrophy with | | | | | | moderate lateral recess | | | | | | narrowing and | | | | | | canalstenosis. L4-5: | | | | | | Mild disk bulging and | | | | | | ligamentum flavum | | | | | | hypertrophy with | | | | | | mildcanal stenosis. | | | | | | L5-S1: No significant | | | | | | spinal canal or | | | | | | foraminal stenosis | | | | | | Sacral levels: Normal | | | | | | Contents of lumbar | | | | | | spinal canal: There is | | | | | | clumping and thickening | | | | | | ofthe dorsal nerve roots | | | | | | caudally from the level | | | | | | of the conus. | | | | | | Nointrathecal mass. | | | | | | Additional Comments: | | | | | | Sacroiliac joints are | | | | | | maintained. IMPRESSION: | | | | | | 1. Serpiginous, | | | | | | lobulated filling | | | | | | defects in the dorsal | | | | | | thecal sacwith | | | | | | associated traction on | | | | | | the upper and | | | | | | midthoracic spinal | | | | | | cordlikely secondary to | | | | | | scarring from prior | | | | | | infection. No | | | | | | intrathecalmass or cyst | | | | | | is seen. 2. Clumping and | | | | | | thickening of lumbar | | | | | | dorsal nerve roots | | | | | | likelysequelae of prior | | | | | | infection or | | | | | | arachnoiditis. 3. | | | | | | Diminutive lower | | | | | | cervical left hemicord, | | | | | | which is | | | | | | incompletelycharacterize | | | | | | d on CT but may | | | | | | represent myelomalacia. | | | | | | 4. Multilevel | | | | | | degenerative disk | | | | | | disease as above with | | | | | | moderate canalstenosis | | | | | | at L3-4 with mild canal | | | | | | stenosis at L2-3 and | | | | | | L4-5. 5. Right thyroid | | | | | | lobe hypodense nodule; | | | | | | ultrasound is | | | | | | recommended forfurther | | | | | | evaluation if not | | | | | | already performed. 6. | | | | | | Non-obstructing 3-mm | | | | | | inferior right renal | | | | | | calculus. 7. Small axial | | | | | | hiatal hernia. By my | | | | | | electronic signature | | | | | | listed below, I, the | | | | | | attendingradiologist, | | | | | | was present for the | | | | | | entire procedure as | | | | | | described inthis note. | | | | | | Attending | | | | | | Radiologists: Aden Toro | | | | | | José MDAuthor: HARIS | | | | | | MD FRANK I have | | | | | | personally viewed this | | | | | | procedure/exam, reviewed | | | | | | this report,and made | | | | | | changes to it where | | | | | | appropriate. | | | | | | Final/Electronically | | | | | | signed / Aden Toro | | | | | | José 02/04/2012 11:44 | | | | | | AM Pending final | | | | | | approval / HARIS | | | | | | FRANK 02/04/2012 9:40 | | | | | | AM Preliminary / | | | | | | HARIS BAILON 02/03/2012 | | | | | | 10:43 AM | | | | + + + + + + + + | Specimen | + + | | + + + +---------+ + + | Performing | Address | City/State/Zipcode | Phone Number | | Organization | | | | + +---------+ + + | [facility] DEPARTMENT OF | | | | | RADIOLOGY | | | | + +---------+ + + MRI CINE BRAIN WO C (02/03/2012 3:44 PM PST) + + + + + + | Component | Value | Ref Range | Performed | Pathologist | | | | | At | Signature | + + + + + + | MRI CINE | MRI BRAIN WITHOUT | | | | | BRAIN WO C | CONTRAST, CSF CINE | | | | | | STUDY, 02/03/12 | | | | | | 15:44:00. INDICATION: | | | | | | Possible ETV, evaluate | | | | | | hydrocephalusCOMPARISON: | | | | | | None TECHNIQUE: | | | | | | Multiplanar, | | | | | | multi-sequence MR | | | | | | imaging of the entire | | | | | | brainwas performed | | | | | | without intravenous | | | | | | gadolinium contrast. CSF | | | | | | CINE wasalso performed | | | | | | through the foramen | | | | | | magnum and cerebral | | | | | | aqueduct. FINDINGS: | | | | | | Skull/Marrow/Soft | | | | | | tissues: Unremarkable | | | | | | Orbits/Optic nerves: | | | | | | Normal Sinuses: Clear | | | | | | Brain: There is fairly | | | | | | massive enlargement of | | | | | | the lateral and | | | | | | thirdventricles with | | | | | | depression of the floor | | | | | | of the third ventricle | | | | | | to themid steven. There | | | | | | is some thinning of the | | | | | | posterior sella and | | | | | | thethird ventricle floor | | | | | | contacts the posterior | | | | | | pituitary gland . | | | | | | Thefloor of the third | | | | | | ventricle abuts the | | | | | | basilar artery which | | | | | | isimmediately posterior | | | | | | to the floor of. | | | | | | Caution should be | | | | | | exercisedwhen performing | | | | | | ETV so as not to injure | | | | | | or contact the | | | | | | adjacentbasilar artery. | | | | | | The cerebral aqueduct | | | | | | appears stenotic . The | | | | | | fourthventricle is | | | | | | normal in size. There | | | | | | is thinning of the | | | | | | surroundingbrain | | | | | | parenchyma. No | | | | | | transependymal flow of | | | | | | CSF is identified. | | | | | | Noacute infarct. No | | | | | | hemorrhage. CSF CINE: | | | | | | Cine shows no | | | | | | significant flow through | | | | | | the cerebral aqueduct | | | | | | orfourth ventricle. | | | | | | Prepontine flow and | | | | | | flow around the | | | | | | cerebellartonsils is | | | | | | noted. The prepontine | | | | | | flow does not extend to | | | | | | the floorof the third | | | | | | ventricle.. | | | | | | Additional Comments: | | | | | | None IMPRESSION:1. | | | | | | Ventriculomegaly | | | | | | isolated to the third | | | | | | and lateral ventricles | | | | | | withsevere depression of | | | | | | the floor of the third | | | | | | ventricle to the mid | | | | | | ponscontacting the | | | | | | posterior pituitary. | | | | | | The basilar artery is | | | | | | in closeproximity to the | | | | | | floor the third | | | | | | ventricle because of the | | | | | | depression. 2. No | | | | | | significant flow | | | | | | identified in the | | | | | | cerebral aqueduct or | | | | | | fourthventricle. | | | | | | Minimal prepontine | | | | | | flow is seen to be steven | | | | | | as well asaround the | | | | | | cerebellar tonsils. | | | | | | The occlusion is | | | | | | likely the level ofthe | | | | | | cerebral aqueduct. | | | | | | Attending Radiologists: | | | | | | Felix Heck | | | | | | ThomasAuthor: Felix | | | | | | Thomas Heck I have | | | | | | personally viewed this | | | | | | procedure/exam, reviewed | | | | | | this report,and made | | | | | | changes to it where | | | | | | appropriate. | | | | | | Final/Electronically | | | | | | signed / Felix Heck | | | | | | 02/03/2012 18:38 PM | | | | + + + + + + + + | Specimen | + + | | + + + +---------+ + + | Performing | Address | City/State/Zipcode | Phone Number | | Organization | | | | + +---------+ + + | [facility] DEPARTMENT OF | | | | | RADIOLOGY | | | | + +---------+ + + X-RAY MYELOGRAPHY 2 OR 3 REGIONS SPINAL CANAL W/INJECTION (02/03/2012 10:25 AM PST) + + + + + + | Component | Value | Ref Range | Performed | Pathologist | | | | | At | Signature | + + + + + + | X-RAY | CERVICAL, THORACIC, and | | | | | MYELOGRAPHY | LUMBOSACRAL MYELOGRAM | | | | | 2 OR 3 | including CT of | | | | | REGIONS | theCervical, Thoracic, | | | | | SPINAL | and Lumbar spine: | | | | | CANAL | 02/03/12 10:24:00 and | | | | | W/INJECTION | DelayedThoracic CT | | | | | | 02/03/12 16:31:33 | | | | | | INDICATION: Evaluate for | | | | | | syringomyelia. | | | | | | COMPARISON: None. | | | | | | OPERATORS: Dr. Samaniego | | | | | | José, Dr. Haris Bailon | | | | | | MEDS: None. FLUORO TIME: | | | | | | Total time: 1 minute, | | | | | | 37 seconds although | | | | | | actual fluorotime was | | | | | | substantially less | | | | | | through the use of | | | | | | pulsed fluoroscopy. | | | | | | TECHNIQUE: The patient | | | | | | was consented after the | | | | | | risks and benefitswere | | | | | | explained. A team pause | | | | | | was performed. | | | | | | Myelography of | | | | | | thecervical, thoracic, | | | | | | and lumbosacral spine | | | | | | was performed | | | | | | underfluoroscopic | | | | | | guidance using standard | | | | | | aseptic technique. | | | | | | Lumbarpuncture was | | | | | | performed at L4-5 with a | | | | | | 22 gauge spinal needle. | | | | | | 9 ccOmnipaque 300 was | | | | | | injected into the | | | | | | thecal sac under | | | | | | fluoroscopicobservation. | | | | | | Multiple views of the | | | | | | cervical, thoracic, | | | | | | andlumbosacral spine | | | | | | were then obtained. No | | | | | | immediate complications | | | | | | ofthe procedure were | | | | | | observed. The patient | | | | | | was then sent to the CT | | | | | | scanner for imaging | | | | | | through thecervical, | | | | | | thoracic, and lumbar | | | | | | spine including sagittal | | | | | | and coronalreformatted | | | | | | images. No intravenous | | | | | | contrast was | | | | | | administered. The | | | | | | patient was sent to the | | | | | | CT scanner for reimaging | | | | | | of the upperthoracic | | | | | | spine 6 hours after | | | | | | initial scanning to | | | | | | evaluate | | | | | | intrathecalfilling | | | | | | defects described below. | | | | | | FINDINGS: Splicer Apprentice | | | | | | films: Normal alignment. | | | | | | No acute fractures, | | | | | | lytic, orblastic | | | | | | lesions. Abdominal | | | | | | soft tissues | | | | | | unremarkable. CT | | | | | | MYELOGRAM FINDINGS: Good | | | | | | opacification of the | | | | | | thecal sac was obtained. | | | | | | CERVICAL SPINE: In the | | | | | | cervical spine, | | | | | | vertebral body heights | | | | | | and alignment | | | | | | aremaintained. The C1-2 | | | | | | and craniocervical | | | | | | relationships are | | | | | | maintained. C2-3 No | | | | | | significant spinal canal | | | | | | or foraminal stenosis | | | | | | C3-4 There is left | | | | | | bony neuroforaminal | | | | | | narrowing secondary | | | | | | touncovertebral and | | | | | | facet osteophytes. C4-5 | | | | | | There is mild central | | | | | | disk protrusion | | | | | | indenting but | | | | | | noteffacing the ventral | | | | | | CSF space with mild mass | | | | | | effect on the | | | | | | lefthemicord. C5-6 No | | | | | | significant spinal canal | | | | | | or foraminal stenosis | | | | | | C6-7 No significant | | | | | | spinal canal or | | | | | | foraminal stenosis C7-1 | | | | | | No significant spinal | | | | | | canal or foraminal | | | | | | stenosis Contents of | | | | | | cervical spinal canal: | | | | | | In the lower cervical | | | | | | spine, theleft hemicord | | | | | | is diminutive compared | | | | | | to the right, not due to | | | | | | masseffect, and the | | | | | | ventral median fissure | | | | | | is prominent. No mass | | | | | | orsyrinx. Soft tissues: | | | | | | There is a hypodense | | | | | | nodule in the right | | | | | | thyroid lobe;ultrasound | | | | | | is recommended for | | | | | | further evaluation, if | | | | | | not alreadyperformed. | | | | | | Left vagal nerve | | | | | | stimulator is present. | | | | | | THORACIC SPINE: T1-2 | | | | | | No significant spinal | | | | | | canal or foraminal | | | | | | stenosis In the thoracic | | | | | | spine, the vertebral | | | | | | body heights and | | | | | | alignment aremaintained. | | | | | | There is mild upper | | | | | | thoracic levocurvature | | | | | | and mild lowerthoracic | | | | | | dextrocurvature. The | | | | | | AP alignment is normal. | | | | | | There is mildmultilevel | | | | | | disk bulging and | | | | | | endplate spurring, | | | | | | greatest at T5-6 | | | | | | andT6-7. Lower | | | | | | Thoracic/Conus: Normal. | | | | | | The conus terminates | | | | | | at the inferioraspect of | | | | | | the L2 endplate. | | | | | | T12-L1: No significant | | | | | | spinal canal or | | | | | | foraminal stenosis | | | | | | Contents of THORACIC | | | | | | spinal canal: From | | | | | | T1-T3, there are | | | | | | serpiginous,lobulated | | | | | | filling defects in the | | | | | | dorsal thecal sac | | | | | | without masseffect but | | | | | | causing traction and | | | | | | mild cord deformation | | | | | | toward thefilling | | | | | | defects. At T6, T7, and | | | | | | T11, there are similar | | | | | | fillingdefects again | | | | | | with traction related | | | | | | mild cord deformation . | | | | | | No massor syrinx. No | | | | | | change in the filling | | | | | | defects is seen on | | | | | | delayed CTimages. | | | | | | Prominence of the | | | | | | ventral median fissure | | | | | | is noted. Soft tissues: | | | | | | The visualized portions | | | | | | of the lungs are clear. | | | | | | Thevisualized portions | | | | | | of the liver are | | | | | | unremarkable. There is | | | | | | | | | | | | layeringcholecystolithia | | | | | | sis without gallbladder | | | | | | wall thickening. There | | | | | | is asolitary | | | | | | nonobstructing 3-mm | | | | | | inferior right renal | | | | | | calculus. The | | | | | | leftkidney is | | | | | | unremarkable. The | | | | | | visualized portions of | | | | | | the spleen,pancreas, | | | | | | adrenal glands, inferior | | | | | | vena cava, aorta, and | | | | | | bowel areunremarkable. | | | | | | There is a small axial | | | | | | hiatal hernia. LUMBAR | | | | | | SPINE: In the lumbar | | | | | | spine, the vertebral | | | | | | body heights and | | | | | | alignment aremaintained. | | | | | | There is mild diffuse | | | | | | canal stenosis from L2-3 | | | | | | caudally,secondary to | | | | | | congenitally short | | | | | | pedicles with | | | | | | superimposed stenosesat | | | | | | multiple levels as | | | | | | follows: L1-2: No | | | | | | significant spinal canal | | | | | | or foraminal stenosis | | | | | | L2-3: There is mild | | | | | | disk space height loss. | | | | | | There is mildbilateral | | | | | | neuroforaminal | | | | | | narrowing secondary to | | | | | | facet hypertrophy.There | | | | | | is circumferential disk | | | | | | bulging with mild | | | | | | lateral recessnarrowing | | | | | | and canal stenosis. | | | | | | L3-4: There is mild | | | | | | disk space height loss. | | | | | | There is mildbilateral | | | | | | neuroforaminal | | | | | | narrowing secondary to | | | | | | facet hypertrophy.There | | | | | | is circumferential disk | | | | | | bulging and ligamentum | | | | | | flavumhypertrophy with | | | | | | moderate lateral recess | | | | | | narrowing and | | | | | | canalstenosis. L4-5: | | | | | | Mild disk bulging and | | | | | | ligamentum flavum | | | | | | hypertrophy with | | | | | | mildcanal stenosis. | | | | | | L5-S1: No significant | | | | | | spinal canal or | | | | | | foraminal stenosis | | | | | | Sacral levels: Normal | | | | | | Contents of lumbar | | | | | | spinal canal: There is | | | | | | clumping and thickening | | | | | | ofthe dorsal nerve roots | | | | | | caudally from the level | | | | | | of the conus. | | | | | | Nointrathecal mass. | | | | | | Additional Comments: | | | | | | Sacroiliac joints are | | | | | | maintained. IMPRESSION: | | | | | | 1. Serpiginous, | | | | | | lobulated filling | | | | | | defects in the dorsal | | | | | | thecal sacwith | | | | | | associated traction on | | | | | | the upper and | | | | | | midthoracic spinal | | | | | | cordlikely secondary to | | | | | | scarring from prior | | | | | | infection. No | | | | | | intrathecalmass or cyst | | | | | | is seen. 2. Clumping and | | | | | | thickening of lumbar | | | | | | dorsal nerve roots | | | | | | likelysequelae of prior | | | | | | infection or | | | | | | arachnoiditis. 3. | | | | | | Diminutive lower | | | | | | cervical left hemicord, | | | | | | which is | | | | | | incompletelycharacterize | | | | | | d on CT but may | | | | | | represent myelomalacia. | | | | | | 4. Multilevel | | | | | | degenerative disk | | | | | | disease as above with | | | | | | moderate canalstenosis | | | | | | at L3-4 with mild canal | | | | | | stenosis at L2-3 and | | | | | | L4-5. 5. Right thyroid | | | | | | lobe hypodense nodule; | | | | | | ultrasound is | | | | | | recommended forfurther | | | | | | evaluation if not | | | | | | already performed. 6. | | | | | | Non-obstructing 3-mm | | | | | | inferior right renal | | | | | | calculus. 7. Small axial | | | | | | hiatal hernia. By my | | | | | | electronic signature | | | | | | listed below, I, the | | | | | | attendingradiologist, | | | | | | was present for the | | | | | | entire procedure as | | | | | | described inthis note. | | | | | | Attending | | | | | | Radiologists: Aden Toro | | | | | | SRUTHI Kumaruthor: HARIS | | | | | | MD FRANK I have | | | | | | personally viewed this | | | | | | procedure/exam, reviewed | | | | | | this report,and made | | | | | | changes to it where | | | | | | appropriate. | | | | | | Final/Electronically | | | | | | signed / Aden Toro | | | | | | José 02/04/2012 11:44 | | | | | | AM Pending final | | | | | | approval / HARIS | | | | | | FRANK 02/04/2012 9:40 | | | | | | AM Preliminary / | | | | | | HARIS BAILON 02/03/2012 | | | | | | 10:43 AM | | | | + + [...] | Diagnosis | + + | Right sided weakness - Primary Muscle weakness (generalized) | + + | Spasticity Abnormal involuntary movements | + + | Decreased sensation Disturbance of skin sensation | + + documented in this encounter"
--- OUTSIDE RECORDS SUMMARY | ~2019-10-25 | XMS | Encounter Summary ---
Demographics + + + | Address | [address] | | | [place] [address] | + + + | Home Phone [...] [place] | | | | | [address] | | + + + + + | Scott Nicole | ECON | Unknown | | + + + + + Care Team Providers + +------+ + | Care Welding Instructor Name | Role | Phone | [...] Closed | | Physical | Diagnoses | Mis | External | | | | Therapy | Shunt | Jacky La MD | Order | | | | | malfunction, | [address] | | | | | | sequela | [address]res | | | | | | Procedures | Jaida Escalante | | | | | | PHYSICAL | [place], [place] | | | | | | THERAPY | [address] | | | | | | REFERRAL | Phone: | | | | | | | [phone] | | | | | | | Fax: | | | | | | | [phone] | | +--------+--------+ + + + + Diagnostic Testing (Routine) + +--------+ + + + + | Status | Reason | Specialty | Diagnoses / | Referred By | Referred To | | | | | Procedures | Contact | Contact | + +--------+ + + + + | New Request | | Radiology | Diagnoses | Yaghi, | [place] | | | | | Shunt | Jacky La MD | Health & | | | | | malfunction, | [address] | [employer] | | | | | sequela | Coco Manzanares | [address] | | | | | Procedures | Ja[address] Escalante | [address] | | | | | CT HEAD WO | [place], [place] | ROAD | | | | | CONTRAST | [address] | [place], [place] | | | | | | Phone: | [address] | | | | | | [phone] | Phone: | | | | | | Fax: | [phone] | | | | | | [phone] | | + +--------+ + + + + Reason for Visit Office Visit - E/M Services (Routine) + +--------+ + + + + | Status | Reason | Specialty | Diagnoses / | Referred By | Referred To | | | | | Procedures | Contact | Contact | + +--------+ + + + + | Authorized | | Neurological | Diagnoses | Oli, | Danny, | | | | Surgery | Obstructive | DO Gabe | Nolvia Liang MD | | | | | | [facility] | [address] | | | | | hydrocephalu | Hospital | Ave | | | | | s (HCC) | Internal | [place], [place] | | | | | Procedures | Medicin | [address] | | | | | HI EST | [address] | Phone: | | | | | PATIENT | Goyo Hyman | [phone] | | | | | LEVEL V HI | Reji, | Fax: | | | | | REPROGRAMMIN | [place] [address] | [phone] | | | | | G,PROGRAMMAB | Phone: | | | | | | LE CSF SHUNT | [phone] | | | | | | | Fax: | | | | | | | [phone] | | + +--------+ + + + + Encounter Details +--------+---------+ + + + | Date | Type | Department | Care Team | Description | +--------+---------+ + + + | 10/13/ | Office | Neurosurgery at | Nolvia Delgado, | Shunt malfunction, | | 2020 | Visit | [facility] [address] | MD [address] | sequela (Primary Dx) | | | | Ave Center for | [facility] [place] | | | | | Health and Healing, | [address] | | | | | | [phone] | | | | | floor [place], [place] | | | | | | [address] | | | | | | [phone] | | | +--------+---------+ + + + [...] + + + | Blood Pressure | 118/74 | 10/14/2019 10:41 AM | | | | | PDT | | + + + + + | Pulse | 86 | 10/14/2019 10:41 AM | | | | | PDT | | + + + + + | Temperature | 36.7 C (98 F) | 10/14/2019 10:41 AM | | | | | PDT [...] documented as of this encounter Progress Notes Jacky Abebe MD - 10/14/2019 10:45 AM PDTFormatting of this note might be different fro m the original. NEUROSURGERY FOLLOW UP CLINIC VISIT HPI / INTERVAL HISTORY: Rin Casas is a 49 y.o. 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 Patient was last seen in the clinic on 05/06/2019 at which time she was heal ing well. Patient returns to the clinic out of concern for valve malfunctioning due to worse ivanna motor skills. Parents report patient has not been doing well since last surgery. Parents reports she can not do anything on her own now. The patient needs assistance for almost all activities of d aily living. In addition the patient has gained a significant amount of weight and is now w heelchair-bound. The patient is no longer to able to walk on her own. She is also is also having urinary incontinence. There are no headaches, lethargy, vomiting. PMH: Past Medical History: Diagnosis Date Blindness of both eyes, impairment level not further specified Cerebral palsy (HCC) Epilepsy, partial (HCC) H/O hydrocephalus Legally blind S/P placement of VNS (vagus nerve stimulation) device 2000 Seizures (HCC) Spastic quadriparesis (HCC) MEDS: Current Outpatient Medications on File Prior to Visit Medication Sig Dispense Refill acetaminophen 325 mg oral tablet Take 2 tablets by mouth every six hours as needed (carmita n). Not to exceed 3250 mg of acetaminophen from all products per 24 hour period. baclofen 10 mg oral tablet Take 1 tablet by mouth once daily. 30 tablet 3 lamoTRIgine 100 mg Oral tablet Take 100 mg by mouth two times daily. multivitamin oral tablet Take 1 tablet by mouth once daily. No current facility-administered medications on file prior to visit. PHYSICAL EXAM: BP 118/74 | Pulse 86 | Temp 36.7 C (98 F) Awake, alert, oriented x3, follow commands Slowed cognition Restricted ability to track/ regards, significant nystagmus Hearing intact to conversation Face symmetric (wearing mask) Naif AG E/S BUE contractures Wheel chair bound Cranial incisions well healed IMAGING: CT head 10/14/2019 ASSESSMENT AND PLAN: Rin Casas is a 49 y.o. female who presents to clinic out of concerns of shunt valve m alfunction due to worsening motor skills. She is most recently s/p replacement of right occi pital ventriculoperitoneal shunt valve (with Certas at 3 now) performed on 04/25/2019 due to malfunctioning VPS valve. Imaging today with stable ventricles, largely resolved left conve xity subdural hematoma. Clinically not doing well since last surgery, now need assistance fo r most ADLs. No HAs, no lethargy, no vomiting. - Certas shunt turned down to 3 today from 4 - Follow up in clinic in [address] head - External referral to PT Jacky Abebe MD Neurosurgery Resident Pager #[phone] Associated attestation - Nolvia Delgado MD - 10/17/2019 11:01 AM PDTI performed a history and physical examination of the patient and discussed her management with the resident. I reviewed the resident s note and agree with the documented findings and plan of care. Nolvia Delgado MD NEUROSURGERY AT [address] [facility], [address], 8th [place] [address] documented in this encounter Plan of Treatment +--------+---------+ + + + | Date | Type | Specialty | Care Team | Description | +--------+---------+ + + + | 11/24/ | Office | Neurological Surgery | Nolvia Delgado, | | 2019 | Visit | | [address] | | | | | | [place], [place] | | | | | | [address] | | | | | | [phone] | | | | | | | | +--------+---------+ + + + + +---------+--------+ + + | Name | Type | Priori | Associated Diagnoses | Order Schedule | | | | ty | | | + +---------+--------+ + + | CT HEAD WO CONTRAST | Imaging | Routin | Shunt malfunction, | Expected: 10/15/2019 | | | | e | sequela | (Approximate), | | | | | | Expires: 11/13/2020 | + +---------+--------+ + + documented as of this encounter Visit Diagnoses + + | Diagnosis | + + | Shunt malfunction, sequela - Primary | + + documented in this encounter"
--- OUTSIDE RECORDS SUMMARY | ~2019-10-25 | XMS | Encounter Summary ---
Demographics + + + | Address | [address] | | | [place] [address] | + + + | Home Phone [...] [place] | | | | | [address] | | + + + + + | Scott Mcgarry ECON | Unknown | | + + + + + Care Team Providers + +------+ + | Care Agronomy Technician Name | Role | Phone | [...] | | | | | subdural | [place], [place] | Health and | | | | | hematoma | [address] | Healing, | | | | | (HCC) | Phone: | Building 1, | | | | | Procedures | [phone] | 3rd Floor | | | | | CT HEAD WO | Fax: | [place], [place] | | | | | CONTRAST [place] | [phone] | [address] | | | | | CT | | Phone: | | | | | SCAN,HEAD/BR | | [phone] | | | | | AIN,W/O | | Fax: | | | | | CONTRAST | | [phone] | | | | | MATL | [...] | | | | | subdural | [place], [place] | Health and | | | | | hematoma | [address] | Healing, | | | | | (HCC) | Phone: | Building 1, | | | | | Procedures | [phone] | 3rd Floor | | | | | CT HEAD WO | Fax: | [place], [place] | | | | | CONTRAST [place] | [phone] | [address] | | | | | CT | | Phone: | | | | | SCAN,HEAD/BR | | [phone] | | | | | AIN,W/O | | Fax: | | | | | CONTRAST | | [phone] | | | | | MATL | | | +--------+--------+ + + + + Encounter Details +--------+ + + + + | Date | Type | Department | Care Team | Description | +--------+ + + + + | 10/10/ | Hospital | Radiology/Imaging | | | | 2017 | Encounter | Lab at [facility] [address] | [address] [facility] | | | | | | Health and Healing, | | | | | | [facility] 1, 3rd | | | | | | Floor [place], [place] | | | | | | [address] | | | | | | [phone] | | | +--------+ + + + [...] | | 2020 | Visit | | MD [address] | | | | | | [facility] [place] | | | | | | [address] | | | | | | [phone] | | | | | | | | +--------+---------+ + + + documented as of this encounter Procedures + +--------+ + + + | Procedure Name | Priori | Date/Time | Associated Diagnosis | Comments | | | ty | | | | + +--------+ + + + | CT HEAD WO CONTRAST | Routin | 10/10/2016 | Acute on chronic | Results for this | | | e | 1:46 PM | intracranial | procedure are in [...] Note | + + | Service Account, RadiPlei Res In Interface - 10/10/2016 5:54 PM [...] unremarkable.IMPRESSION:Stable postsurgical changes of bilateral | | aime holes with improved pneumocephalus .Mixed density extra-axial [...]
--- OUTSIDE RECORDS SUMMARY | ~2019-10-25 | XMS | Encounter Summary ---
Demographics + + + | Address | [address] | | | [place] [address] | + + + | Home Phone | | + + + | Preferred Language | Unknown | + + + | Marital Status | Single | + + + | Tenriism Affiliation | NRP | + + + [...] [place] | | | | | [address] | | + + + + + | Scott Mcgarry ECON | Unknown | | + + + + + Care Team Providers + +------+ + | Care Director Student Union Name | Role | Phone | + [...] | Encounter | [address] | [address] | | | | | [id number] [facility] | [place], [place] | | | 02/08/ | | [facility], | [address] | | | 2014 | | [place] [address] | [phone] | | | | | [phone] | | | +--------+ + + + [...] Nolvia Delgado MD PCP: REENA Gusman Service: [facility] Neurosurgery Diagnoses Principal Final Diagnosis: Recurrent hydrocephalus [...] x 2.The patien t was admitted to [facility], electively on 02/07/2015 for a Redo [...] Up Appointments: Follow Up Follow up at [facility] Neurosurgery Clinic, [facility], 8th Floor, [address] [place] [address]; with Kristen Chang in 2 weeks for [...] Nolvia Delgado MD [place] [address] NSI [id number] [address] documented in this en counter Discharge Instructions [...] time is exclusive of procedures. 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 , PhD [facility] DEPARTMENT: [id number] ICU NEURO Place of Service:- Inpatient Date of Service: 02/07 CSN: [id number] Suggested Modifier: Suggested CPT: TO WEB PRODUCTION DESIGNER RELEVANT DATA: Last Vitals: BP 123/59 | [...] 13.12* HB 15.1 HCT 45.8 PLT 302 [facility], Davina Luna MD - 02/07/2015 2:00 PM [facility] NEUROSURGERY POST OPERATIVE CHECK Author: Davina [...] 11/24/ | Office | Neurological Surgery | oNlvia Delgado, | | | 2019 | Visit | | [address] | | | | | | [facility] [place] | | | | | | [address] | | | | | | [phone] | | | | | | | [...] | | Attending Surgeon: Nolvia Delgado MD Child Welfare Worker(s): Nata | | Maryann Hinojosa MD Preoperative [...] 02/07/2015 15:56:49DT: 02/07/2015 22:05:28Job #: | | [id number] was present for the critical portions of the procedure as described in | | the note for this encounter.Ricky Sanz MDOH 7C [id number] [facility] | | [id number], [place] [phone] | | | | | | | |Nata Hinojosa MD | | | | | |Nolvia Delgado MD | |FAH/MODL | | | | | | /[id number] | | | |I was present for the critical portions of the procedure as described in the note for this encounter. | | | |Nolvia Delgado MD | | | |Nolvia Delgado MD | |[facility] 7C NSI | |[address] [facility] [address] | |[id number] | |[place] [address] | |[phone] | + + CBC (HEMOGRAM) ONLY (02/08/2015 [...] | + + + + + | [facility] | [address] | [place] [address] | | | SERVICES, CORE | [address] [...] | + + + + + | [facility] | [address] [facility] | [place] [address] | | | SERVICES, CORE | [address] [...] | | | LABORATORY | | | LUXEMBOURGER | | | SERVICES, | | | [...] the MDRD equation recommended by the | [facility] | | National Kidney Disease Education Program. [...] + + + | [facility] LABORATORY | [address] | [place] [address] | | | SERVICES, CORE | [address] | | | + + + + + MAGNESIUM, PLASMA (02/08/2015 4:13 AM PST) + +-------+ + + + | Component | Value | Ref Range | Performed | Pathologist | | | | | At | Signature | + +-------+ + + + | MAGNESIUM,P | 1.8 | 1.8 - 2.5 mg/dL | [facility] | | | LASMA | | | [...] | + + + + + | [facility] | [address] | [place] [address] | | | SERVICES, CORE | HAYDEE [...] LABORATORY | [address] | [place] [address] | | | SERVICES, CORE | [address] [...] + + + | [facility] | [address] | [place] [address] | | | SERVICES, CORE | HAYDEE [...] [facility] | [address] | [place] [address] | | | SERVICES, CORE | [address] [...] | + + + + + | [facility] | [address] | [place] [address] | | | SERVICES, CORE | [address] [...] [facility] | [address] | [place] [address] | | | SERVICES, CORE | [address] [...] | + + + + + | [facility] | [address] | [place] [address] | | | SERVICES, | [address] [...] [facility] | [address] | [place] [address] | | | SERVICES, | [address] [...] | + + + + + | [facility] | [address] | [place] [address] | | | [place], [facility] | [address] | | | + [...]
--- OUTSIDE RECORDS SUMMARY | ~2019-10-25 | XMS | Encounter Summary ---
Demographics + + + | Address | [address] | | | [place] [address] | + + + | Home Phone | | + + + | Preferred Language | Unknown | + + + | Marital Status | Single | + + + | Sabianist Affiliation | NRP | + + + [...] [place] | | | | | [address] | | + + + + + | Sctot Mcgarry ECON | Unknown | | + + + + + Care Team Providers + +------+ + | Care Floating Derrick Operator Name | Role | Phone | [...] | | [facility] | [place], [place] | | | | | Health and Healing, | [address] | | | | | [facility] | [phone] | | | | | floor [place], [place] | | | | | | [address] | | | | | | [phone] | | | +--------+ + + + [...] [address] | | | | | | [place], [place] | | | | | | [address] | | | | | | [phone] | | | | | | | | +--------+---------+ + + + documented as of this encounter Visit Diagnoses Not on filedocumented in this encounter"
--- OUTSIDE RECORDS SUMMARY | ~2019-10-25 | XMS | Encounter Summary ---
Demographics + + + | Address | [address] | | | [place] [address] | + + + | Home Phone [...] [place] | | | | | [address] | | + + + + + | Scott Nicole | ECON | Unknown | | + + + + + Care Team Providers + +------+ + | Care Food Sanitarian Name | Role | Phone | + +------+ + | Gabe Baird DO | PCP | | + +------+ + Encounter Details +--------+ + + + + | Date | Type | Department | Care Team | Description | +--------+ + + + + | 03/26/ | Telephone-S | Preoperative | | Canceled (Patient | | 2020 | cheduled | Medicine Clinic at | | Request) | | | | [facility] | | | | | | [address] | | | | | | [facility] | | | | | | and Healing, | | | | | | Building [address] | | | | | | [place], [place] | | | | | | [address] | | | | | | [phone] | | | +--------+ + + + [...] | | 2020 | Visit | | [address] | | | | | | [place], [place] | | | | | | [address] | | | | | | [phone] | | | | | | | | +--------+---------+ + + + documented as of this encounter Visit Diagnoses Not on filedocumented in this encounter"
--- OUTSIDE RECORDS SUMMARY | ~2019-10-25 | XMS | Encounter Summary ---
Demographics + + + | Address | [address] | | | [place] [address] | + + + | Home Phone | | + + + | Preferred Language | Unknown | + + + | Marital Status | Single | + + + | Congregation Affiliation | NRP | + + + [...] [place] | | | | | [address] | | + + + + + | Scott Mcgarry ECON | Unknown | | + + + + + Care Team Providers + +------+ + | Care Traffic Signal Technician Name | Role | Phone | [...] | | | Right foot | | [facility] [place] | | | | | Procedures | | [address] | | | | | CONSULT TO | | Phone: | | | | | ORTHOPEDICS | | [phone] | | | | | AND | | Fax: | | | | | REHABILITATI | | [phone] | | | | | ON | [...] (Primary | | | | Physician's | [place], [place] | Dx) | | | | Andressa, 2nd floor | [address] | | | | | [facility] [place] | [phone] | | | | | [address] | | | | | | [phone] | | | +--------+---------+ + + + [...] [address] | | | | | | [place], [place] | | | | | | [address] | | | | | | [phone] | | | | | | | | +--------+---------+ + + + documented as of this encounter Visit Diagnoses + + | Diagnosis | + + | Foot deformity, congenital - Primary Talipes, unspecified | + + documented in this encounter"
--- OUTSIDE RECORDS SUMMARY | ~2019-10-25 | XMS | Encounter Summary ---
Demographics + + + | Address | [address] | | | [place] [address] | + + + | Home Phone | | + + + | Preferred Language | Unknown | + + + | Marital Status | Single | + + + | Moravian Affiliation | NRP | + + + [...] [place] | | | | | [address] | | + + + + + | Scott Mcgarry ECON | Unknown | | + + + + + Care Team Providers + +------+ + | Care Jointer Machine Operator Name | Role | Phone [...] | +--------+ + + + + | 02/02/ | Hospital | [facility] [address] | Ciara Clement MD | | | 2011 | Encounter | [address] | [address] | | | | | [address] [place] [address] | [address] [place], | | | | | [place], [place] | [place] [address] | | | | | [address] | [phone] | | | | | [phone] | | | | | | | Aden Kumar MD | | | | | | [address] | | | | | | [address] Esc[address] [place], | | | | | | [place] [address] | | | | | | [phone] | | | | | | | [...] + + + | Blood Pressure | 127/75 | 02/03/2012 12:30 PM | | | | | PST | | + + + + + | Pulse | 90 | 02/03/2012 1:00 PM | | | | | PST | | + + + + + | Temperature | 36.4 C (97.6 F) | 02/03/2012 10:31 AM | | | | | PST | | + + + + + | Respiratory Rate | 17 | 02/03/2012 1:00 PM | | | | | PST | | + + + + + | Oxygen Saturation | 95% | 02/03/2012 1:00 PM | | | | | PST | | + + + + + | Inhaled Oxygen | - | - | | | Concentration | | | | + + + + + | Weight | 93 kg (205 lb) | 02/03/2012 7:00 AM | | | | | PST | | + + + + + | Height | 162.6 cm (5' 4") | 02/03/2012 7:00 AM | | | | | PST | | + + + + + | Body Mass Index | 35.19 | 02/03/2012 7:00 AM | | | | | PST | | + + + + + documented in this encounter Discharge Instructions Instructions Norma Romero RN - 02/03/2012[place] Care Instructions: CT/Myelogram Call your doctor if you notice any unusual symptoms. Remember: you are under the influence of medicines. You must have someone else take you home, either by car or taxi. Don t drive , operate machinery or power tools. Don t drink any alcoholic beverages. Don t make any important decisions or sign legal papers. Wound Care Keep the puncture site clean and dry. Activity No lifting or straining for 2 days (48 hours) Drink 8 to 10 extra glasses of water or other fluids today and tomorrow Stay in bed the rest of today and tonight. Do not lie flat for 48 hours. Sleep with 2 to 3 large pillows tonight. Keep your head higher than your shoulders at all times for 48 hours. Do not bend over. Diet and Medicines Eat your normal diet and take your usual medicines unless told otherwise by your doctor. Call or the surgical specialty [facility] at [facility] paging postage machine operator at and ask for the Neuro Radiologist information technology assistant if you have any of the following symptoms: Stiffness in neck Severe headache Backache Changes in your vision (sight) Weakness, pain or numbness in arms or legs Nausea or vomiting Problems urinating How to reach your doctor Call the hospital postage machine operator at . Ask for the Strip Machine Operator information technology assistant. If you need to see a doctor, go to the Emergency room. If you have an emergency requiring immediate care, call [phone]. documented in this encounter Medications at Time [...] Tracy | | | | | | [place], [place] | | | | | | [address] | | | | | | [phone] | | | | | | | [...] for this | | | e | 12:29 AM | | procedure are in the | | | | PST | | results section. | + +--------+ + + + | CT SPINE TOTAL W | Routin | 02/03/2012 | Right sided | Results for this | | CONTRAST | e | 4:37 PM | weakness Spasticity | procedure are in the | | | | PST | Decreased | results section. | | | | | sensation | | + +--------+ + + + | X-RAY MYELOGRAPHY 2 | Routin | 02/03/2012 | Right sided | Results for this | | [place] 3 REGIONS SPINAL | e | 10:25 AM | weakness Spasticity | procedure are in the | | CANAL W/INJECTION | | PST | Decreased | results section. | | | | | sensation | | + +--------+ + + + documented in this encounter Results PROCEDURE NOTE (04/21/2015 12:29 AM PST) + + | Transcriptions | + + | Other, Faculty - 02/07/2012 9:44 AM PST | + + CT SPINE TOTAL W CONTRAST (02/03/2012 4:37 [...] | | | | | | FINDINGS: Money Manager | | | | | | films: [...] | | | | | | HARIS MARIE 02/03/2012 | | | | | | 10:43 AM | | | | + + + + + + + + | Specimen | + + | | + + + +---------+ + + | Performing | Address | City/State/Zipcode | Phone Number | | Organization | | | | + +---------+ + + | [facility] DEPARTMENT OF | | | | [...] CT | | | | | | 11/19/12 16:31:33 | | | | | | [...] | | | | | | FINDINGS: Money Manager | | | | | | films: [...] | | | | | | HARIS MARIE 02/03/2012 | | | | | | [...] | + + | Right sided weakness Muscle weakness (generalized) | + + | Spasticity Abnormal involuntary movements | + + | Decreased sensation Disturbance of skin sensation | + + | Cerebral ventriculomegaly Other conditions of brain | + + documented in this encounter Administered Medications + +--------+ +------+------+------+ | Medication Order | MAR | Action | Dose | Rate | Site | | | Action | Date | | | | + +--------+ +------+------+------+ | diazepam (aka VALIUM) tablet 5 | Given | 02/03/20 | 5 mg | | | | mg 5 mg, oral, FOUR TIMES DAILY | | 12 2:15 | | | | | NEEDED, Starting Fri02/03/12 | | PM PST | | | | | at 1415, Until Fri02/03/12 at | | | | | | | 1437, anxiety, once | | | | | | + +--------+ +------+------+------+ +---+---+ | | | +---+---+ documented in this encounter
--- OUTSIDE RECORDS SUMMARY | ~2019-10-25 | XMS | Encounter Summary ---
Demographics + + + | Address | [address] | | | [place] [address] | + + + | Home Phone [...] [place] | | | | | [address] | | + + + + + | Scott Nicole | ECON | Unknown | | + + + + + Care Team Providers + +------+ + | Care Certified Genetic Counselor Name | Role | Phone | + [...] | | Request) | | | | [facility] | | | | | | [address] | | | | | | [facility] | | | | | | and Healing, | | | | | | [address] | | | | | | [place], [place] | | | | | | [address] | | | | | | [phone] | | | +--------+ + + + [...] | | 2020 | Visit | | [address] | | | | | | [place], [place] | | | | | | [address] | | | | | | [phone] | | | | | | | | +--------+---------+ + + + documented as of this encounter Visit Diagnoses Not on filedocumented in this encounter"
--- OUTSIDE RECORDS SUMMARY | ~2019-10-25 | XMS | Encounter Summary ---
Demographics + + + | Address | [address] | | | [place] [address] | + + + | Home Phone | | + + + | Preferred Language | Unknown | + + + | Marital Status | Single | + + + | Lutheran Affiliation | NRP | + + + [...] [place] | | | | | [address] | | + + + + + | Scott Nicole | ECON | Unknown | | + + + + + Care Team Providers + +------+ + | Care Special Agent Secret Service Name | Role | Phone | + [...] | | | | | [address] [facility] for | [place], [place] | | | | | Health and Healing, | [address] | | | | | [facility] | [phone] | | | | | Floor [place], [place] | | | | | | [address] | | | | | | [phone] | | | +--------+ + + + [...] [address] | | | | | | [facility], [place] | | | | | | [address] | | | | | | [phone] | | | | | | | | +--------+---------+ + + + documented as of this encounter Visit Diagnoses + + | Diagnosis | + + | Hydrocephalus (HCC) - Primary Obstructive hydrocephalus | + + | 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
--- OUTSIDE RECORDS SUMMARY | ~2019-10-25 | XMS | Encounter Summary ---
Demographics + + + | Address | [address] | | | [place] [address] | + + + | Home Phone | | + + + | Preferred Language | Unknown | + + + | Marital Status | Single | + + + | Presybeterian Affiliation | NRP | + + + [...] [place] | | | | | [address] | | + + + + + | Scott Nicole | ECON | Unknown | | + + + + + Care Team Providers + +------+ + | Care Cord Splicer Name | Role | Phone | + [...] Request | | Radiology | Diagnoses | [place], | [place] | | | | | Shunt | [place] A, | Health & | | | | | malfunction, | [place] [address] | [facility] | | | | | subsequent | [facility] | [address] [facility] | | | | | encounter | [address] | [address] | | | | | Hydrocephalu | [place], [place] | ROAD | | | | | s, | [address] | [place], [place] | | | | | unspecified | Phone: | [address] | | | | | type (HCC) | [phone] | Phone: | | | | | Procedures | Fax: | [phone] | | | | | CT HEAD WO | [phone] | | | | | | CONTRAST | | | + +--------+ + + + + Reason for Visit Diagnostic Testing (Urgent) + +--------+ + + + + | Status | Reason | Specialty | Diagnoses / | Referred By | Referred To | | | | | Procedures | Contact | Contact | + +--------+ + + + + | New Request | | Radiology | Diagnoses | [place], | [place] | | | | | Shunt | [place] A, | Health & | | | | | malfunction, | [address] [address] | [employer] | | | | | subsequent | [address] | [address] [facility] | | | | | encounter | [address] | [address] | | | | | Hydrocephalu | [place], [place] | ROAD | | | | | s, | [address] | [place], [place] | | | | | unspecified | Phone: | [address] | | | | | type (HCC) | [phone] | Phone: | | | | | Procedures | Fax: | [phone] | | | | | CT HEAD WO | [phone] | | | | | | CONTRAST | | | + +--------+ + + + + Encounter Details +--------+ + + + + | Date | Type | Department | Care Team | Description | +--------+ + + + + | 10/13/ | Hospital | Radiology/Imaging | [place] | | | 2020 | Encounter | Lab at [facility] [address] | A, [place]EE[place] [address] | | | | | [address] [facility] for | [address] | | | | | Health and Healing, | [place], [place] | | | | | [address], [facility] | [address] | | | | | Floor [place], [place] | [phone] | | | | | [address] | | | | | | [phone] | | | +--------+ + + + [...] [address] | | | | | | [place], [place] | | | | | | [address] | | | | | | [phone] | | | | | | | | +--------+---------+ + + + documented as of this encounter Procedures + +--------+ + + + | Procedure Name | Priori | Date/Time | Associated Diagnosis | Comments | | | ty | | | | + +--------+ + + + | CT HEAD WO CONTRAST | Urgent | 10/14/2019 | Shunt malfunction, | Results for this | | | | 9:41 AM | subsequent | procedure are in the | | | | PDT | encounter | results section. | | | | | Hydrocephalus, | | | | | | unspecified type | | | | | | (HCC) [...] | | | right parieto-occipital approach SUPERVISOR STATEMENT CLERKS shunt, unchanged in position. | | | [...] | WITHOUT CONTRAST HISTORY: concern for shunt [id number] female with past medical | | history [...] of right | | parieto-occipital approach SUPERVISOR STATEMENT CLERKS shunt, unchanged in position. Redemonstration of isodense [...] edited the report. I agree with th sonya report as now presented. | | | |Final signature: iNkki Deutsch MD 10/14/2019 11:34 AM | |Preliminary: [...] Diagnosis | + + | Shunt malfunction, subsequent encounter | + + | Hydrocephalus, unspecified type (HCC) | + + documented in this encounter"
--- OUTSIDE RECORDS SUMMARY | ~2019-10-25 | XMS | Encounter Summary ---
Demographics + + + | Address | [address] | | | [place] [address] | + + + | Home Phone [...] Author + + + | Author | [facility] | + + + | Organization | [facility] | + + + | Address | Unknown | + + + | Phone | Unavailable | + + + Support + + + + + | Name | Relationship | Address | Phone | + + + + + | Malina Nicole | ECON | [address] | | | | | [place] | | | | | [address] | | + + + + + | Scott Mcgarry ECON | Unknown | | + + + + + Care Team Providers + +------+ + | Care Admission Nurse Coordinator Name | Role | Phone | [...] Closed | | Neurological | Diagnoses | [place], | [place], | | | | Surgery | Obstructive | Nolvia Liang MD | Nolvia Liang MD | | | | | | [address] | [address] | | | | | hydrocephalu | Ave | Ave | | | | | s | [place], [place] | [place], [place] | | | | | Procedures | [address] | [address] | | | | | REQUEST TO | Phone: | Phone: | | | | | SURGERY | [phone] | [phone] | | | | | OPERATOR AND TRUCK DRIVER | Fax: | Fax: | | | | | [place] [facility] | [phone] | [phone] | | | | | SHUNT:VENTRI | | | | | | | C-PERITONEAL | | | +--------+--------+ + + + + Reason for Visit + + + | Reason | Comments | + + + | Return Patient | | + + + Encounter Details +--------+---------+ + + + | Date | Type | Department | Care Team | Description | +--------+---------+ + + + | 10/25/ | Office | Neurosurgery at | Danny, Christianokumar Liang, | Hydrocephalus | | 2016 | Visit | [facility] [address] | MD [address] | (Primary Dx) | | | | Ave Center for | [place], [place] | | | | | Health and Healing, | [address] | | | | | [facility] | [phone] | | | | | floor [place], [place] | | | | | | [address] | | | | | | [phone] | | | +--------+---------+ + + + [...] + + + | Blood Pressure | 126/89 | 10/26/2015 3:31 PM | | | | | PDT | | + + + + + | Pulse | 73 | 10/26/2015 3:31 PM | | | | | PDT | | + + + + + | Temperature | 36.4 C (97.6 F) | 10/26/2015 3:31 PM | | | | | PDT [...] Weight | 95.3 kg (210 lb) | 10/26/2015 3:31 PM | pt father stated | | | | PDT | weight | + + + + + | Height | 172.7 cm (5' 8") | 10/26/2015 3:31 PM | pt father stated | | | | PDT | height | + + + + + | Body Mass Index | 31.93 | 10/26/2015 3:31 PM | | | | | PDT | | + + + + + documented in this encounter Progress Notes Nolvia Delgado MD - 10/29/2015 11:59 AM PDTFormatting of this note might be different fro shannan the original. Rin returns today for follow up. Continues to have a decline of her motor functions and c ognitive functions as well. She had an MRI that showed persistent hydrocephalus. I have perf ormed three ETV procedures for her and this last one was performed in January, which means it failed early. Filed Vitals 10/26/2015 4:10 PM Height: 1.727 m (5' 8") Weight: 95.255 kg (210 lb) BP: 126/89 Pulse: 73 Temp: 36.4 C (97.6 F) TempSrc: Forehead PainSc: 0 - Zero BMI: 31.94 kg/(m^2) No exam change since last time, still wheel chair bound, profound spasticity, awake and abl e to conduct a conversation. MRI: EXAM: MRI brain without and with contrast. CSF and images were acquired. HISTORY: Hydrocephalus COMPARISON: MRI brain 08/05/2013 and 09/29/2014. TECHNIQUE: Multiplanar multi-sequence MRI of the brain without and with gadolinium based intravenous contrast. FINDINGS: Brain: Again noted is massive enlargement of the lateral ventricles, left greater than right. In the 3rd ventricle. There is associated extensive atrophy of the overlying brain without abnormal signal intensity. The 4th ventricle is decompressed. High resolution images demonstrate stable stenosis/occlusion of the caudal aspect of the cerebral aqueduct. Again noted is abnormal inferior descent of the floor of the 3rd ventricle which contacts the ventral surface of the distal basilar artery and needs to lateral displacement of small bilateral optic nerves. There is also question of a small web or projecting along the anterior margin of the 3rd ventricle and the prepontine cistern, image 14, series 8. Posterior left frontal approach ventriculostomy tract, similar to previous. No evidence of hemorrhage, mass, or acute infarction. No abnormal enhancement. 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 There is a question of a small web in the prepontine cistern inferior to the ventriculostomy site which could impede prepontine CSF flow. 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 I believe that we are forced to use the TAG CLERK shunt option. I would like to perform a right frontal TAG CLERK shunt using programmable valve set to higher setting given the hi gher risk of overdrainage and subdural hematoma in patients with massive hydrocephalus and t hin cortical mantle. A PARQ session was held, additional questions with discussion were comp leted. documented in this en counter Plan of Treatment +--------+---------+ + + + | Date | Type | Specialty | Care Team | Description | +--------+---------+ + + + | 11/24/ | Office | Neurological Surgery | Nolvia Delgado, | | | 2019 | Visit | | [address] | | | | | | [place], [place] | | | | | | [address] | | | | | | [phone] | | | | | | | | +--------+---------+ + + + documented as of this encounter Visit Diagnoses + + | Diagnosis | + + | Hydrocephalus (HCC) - Primary Obstructive hydrocephalus | + + documented in this encounter
--- OUTSIDE RECORDS SUMMARY | ~2019-10-25 | XMS | Encounter Summary ---
Demographics + + + | Address | [address] | | | [place] [address] | + + + | Home Phone [...] [place] | | | | | [address] | | + + + + + | Sctot Nicole | ECON | Unknown | + | + + + + + Care Team Providers + +------+ + | Care Digital Media Specialist Name | Role | Phone | + +------+ + | Gabe Baird | PCP | | + +------+ + Encounter Details +--------+--------+ + + + | Date | Type | Department | Care Team | Description | +--------+--------+ + + + | 12/31/ | Travel | | | | | [...] [address] | | | | | | [place], [place] | | | | | | [address] | | | | | | [phone] | | | | | | | | +--------+---------+ + + + documented as of this encounter Visit Diagnoses Not on filedocumented in this encounter"
--- OUTSIDE RECORDS SUMMARY | ~2019-10-25 | XMS | Encounter Summary ---
Demographics + + + | Address | [address] | | | [place] [address] | + + + | Home Phone [...] [place] | | | | | [address] | | + + + + + | Scott Mcgarry ECON | Unknown | | + + + + + Care Team Providers + +------+ + | Care Field Agent Name | Role | Phone | + [...] | | | | | subdural | [place], [place] | Health and | | | | | hematoma | [address] | Healing, | | | | | (HCC) | Phone: | Building [address], | | | | | Procedures | [phone] | 3rd Floor | | | | | CT HEAD WO | Fax: | [place], [place] | | | | | CONTRAST ID | [phone] | [address] | | | | | CT | | Phone: | | | | | SCAN,HEAD/BR | | [phone] | | | | | AIN,W/O | | Fax: | | | | | CONTRAST | | [phone] | | | | | MATL | [...] | | | | | subdural | [place], [place] | Health and | | | | | hematoma | [address] | Healing, | | | | | (HCC) | Phone: | [address] 1, | | | | | Procedures | [phone] | 3rd Floor | | | | | CT HEAD WO | Fax: | [place], [place] | | | | | CONTRAST ID | [phone] | [address] | | | | | CT | | Phone: | | | | | SCAN,HEAD/BR | | [phone] | | | | | AIN,W/O | | Fax: | | | | | CONTRAST | | [phone] | | | | | MATL | | | +--------+--------+ + + + + Encounter Details +--------+ + + + + | Date | Type | Department | Care Team | Description | +--------+ + + + + | 09/12/ | Hospital | Radiology/Imaging | Nolvia Delgado, | | | 2017 | Encounter | Lab at [facility] [address] | MD [address] | | | | | [address] [place] for | [place], [place] | | | | | Health and Healing, | [address] | | | | | [place] [address] [facility] | [phone] | | | | | Floor [place], [place] | | | | | | [address] | | | | | | [phone] | | | +--------+ + + + [...] | | 2020 | Visit | | [address] | | | | | | [place], [place] | | | | | | [address] | | | | | | [phone] | | | | | | | [...]
--- OUTSIDE RECORDS SUMMARY | ~2019-10-25 | XMS | Encounter Summary ---
Demographics + + + | Address | [address] | | | [place] [address] | + + + | Home Phone [...] [place] | | | | | [address] | | + + + + + | Scott Nicole | ECON | Unknown | | + + + + + Care Team Providers + +------+ + | Care [facility] Internship Name | Role | Phone | + [...] Closed | | Orthopedics | Diagnoses | Sage, | Shanti Linton | | | | | Acute pain | Mendy Mancera MD | [facility] | | | | | of left knee | [address] | [address] | | | | | Knee | [place] [address] | | | | | effusion, | [address] | [address] [place], | | | | | left | [place], [place] | [place] | | | | | Procedures | [address] | [address] | | | | | CONSULT TO | Phone: | Phone: | | | | | ORTHOPEDICS | [phone] | [phone] | | | | | AND | Fax: | Fax: | | | | | REHABILITATI | [phone] | [phone] | | | | | ON | | | +--------+--------+ + + + + Reason for Visit + + + | Reason | Comments | + + + | Seizure | | + + + | Knee pain | | + + + AUTH/CERT +--------+--------+ [...] | +--------+ + + + + | 04/09/ | Emergency | [facility] Emergency | Pascual Gandhi, | | | 2018 - | | Department [address] | [address] | | | | | [address] | [address] | | | 04/10/ | | [facility] | [place], [place] | | | 2018 | | [place], [place] | [address] | | | | | [address] | [phone] | | | | | [phone] | | | | | | | Jonatan Sams FNP | | | | | | [address] | | | | | | [address] | | | | | | [place], [place] | | | | | | [address] | | | | | | [phone] | | | | | | | | | | | | Hussein Resendez, | | | | | | KASSIDY [address] | | | | | | [address] | | | | | | [place], [place] | | | | | | [address] | | | | | | [phone] | | | | | | | | | | | | Angie Can, | | | | | | PA-C [address] | | | | | | [address] | | | | | | [place], [place] | | | | | | [address] | | | | | | [phone] | | | | | | | [...] + + + | Blood Pressure | 124/79 | 04/10/2017 6:59 AM | | | | | PST | | + + + + + | Pulse | 92 | 04/09/2017 2:36 PM | | | | | PST | | + + + + + | Temperature | 36.8 C (98.2 F) | 04/09/2017 2:36 PM | | | | | PST | | + + + + + | Respiratory Rate | 15 | 04/09/2017 2:37 PM | | | | | PST | | + + + + + | Oxygen Saturation | 93% | 04/10/2017 6:59 AM | | | | | PST | | + + + + + | Inhaled Oxygen | - | - | | | Concentration | | | | + + + + + | Weight | 96.2 kg (212 lb) | 04/09/2017 2:37 PM | | | | | PST | | + + + + + | Height | - | - | | + + + + + | Body Mass Index | 33.2 | 09/20/2016 2:44 PM | | | | | PDT | | + + + + + documented in this encounter Discharge Summaries Angie Can PA-C - 04/10/2017 6:43 AM PST ED OBSERVATION UNIT DISCHARGE SUMMARY Date of ED Obs Admission: 04/09/2017 Date of ED Obs Discharge: 04/10/2017 Primary Care Provider: Rowan Cardenas PA-C ED Obs Provider: Angie Can PA-C Chief Complaint: Seizure and Knee pain Final Diagnoses: M25.562 Acute pain of left knee M25.462 Knee effusion, left G91.9 Hydrocephalus Brief HPI: Henrique Casas is a 46 y.o. female with a PMH of CP with Hydrocephalus s/p [employer]PRENTICE shunt c/b Se izure Disorder who presented to the ED for evaluation of Right Knee Pain x 1 week as well as recent seizures. ED Acute Course: Upon presentation to the ED, the patient's VS were stable/unremarkable. Her exam was s/f left eyebrow surgical scar, dysconjugate gaze, and decreased left knee ROM with effusion and diffuse tenderness. In the acute ED, a work-up was initiated which was pertinent for (full details listed below) a CBC (WBC 11.6) and CMP (Na 135). A knee XR was with a small joint effusion otherwise without acute abnormality. A Head CT was with stable supratentorial vent riculomegaly and decreasing left frontotemporal and right parietal extra-axial fluid collect ions. Observation Unit Course: When stable, the patient was transferred to the Emergency Department Observation Unit with a diagnosis of Left Knee Pain for continuation of care including pain control and serial exa ms overnight. While in ED Obs, Henrique Casas was hemodynamically stable. Her vitals remained stable/un remarkable overnight and her exam was unchanged from prior evaluation. Her left knee was pl aced in a knee immobilizer with improved pain control. Her neuro exam remained at baseline and she did not demonstrate any new seizure activity. She did not require anything for pain . Her parents picked her up in the early AM and took her back home to [place] as planned. Consults: None Pertinent Exam Findings at Discharge: General appearance: Adult chronically ill appearing woman resting in bed appearing well nou rished in NAD. HEENT: cephalomegaly, left frontal surgical scars, atraumatic. Sclera anicteric, left scle ra with mild injection. Dysconjugate gaze. Mucous membranes moist. Neck supple. Extrem: Warm and well perfused, no deformities. Left knee with moderate effusion, mild wa rmth, left anterior joint line ttp. Pain with minimal ROM. Peripheral Vascular: No dependent edema. 2+ Posterior Tibial pulses bilaterally. Neuro: A&O x 3, CN II-XII intact grossly. Psych: Appropriate affect and insight. Pleasant. Skin: Appropriate color, warm, dry. # Left Knee Effusion # Left Knee Pain -knee immobilizer for short periods of time. Periodic ROM recommended -WBAT -ice, elevate, rest -PCP follow up within 1 week for ER recheck -NSAIDs and tylenol prn pain -orthopedic referral placed Disposition: discharge to home Discharge Condition: stable, improved Medications: no new meds Instructions: 1. Activity: full as tolerated 2. Diet: regular 3. Return to ED if symptoms worsen Follow-up: 1. Rowan Cardenas PA-C within 1 week for ER recheck, sooner if worsens. BP 124/79 | Pulse 92 | Temp 36.8 C | RR 15 | Wt 96.2 kg (212 lb) | SpO2 93% | BMI 33.2 k g/(m^2) Angie Can PA-C Emergency Department Results for orders placed or performed during the hospital encounter of 04/09/17 COMPLETE METABOLIC SET (NA,K,CL,CO2,BUN,CREAT,GLUC,CA,AST,ALT,BILI TOTAL,ALK PHOS,ALB,PROT TOTAL) Result Value Ref Range GLUCOSE, PLASMA (LAB) 96 70 - 99 mg/dL BUN, PLASMA (LAB) 13 6 - 20 mg/dL CREATININE PLASMA (LAB) 0.64 0.60 - 1.10 mg/dL EGFR - IRANIAN >60 >60 mL/min EGFR NON -IRANIAN >60 >60 mL/min SODIUM, PLASMA (LAB) 135 (L) 136 - 145 mmol/L POTASSIUM, PLASMA (LAB) 3.8 3.4 - 5.0 mmol/L CHLORIDE, PLASMA (LAB) 103 97 - 108 mmol/L TOTAL CO2, PLASMA (LAB) 25 21 - 32 mmol/L CALCIUM, PLASMA (LAB) 9.2 8.6 - 10.2 mg/dL CALCIUM(ALB CORRECTED) 9.8 8.6 - 10.2 mg/dL BILIRUBIN TOTAL 0.4 0.3 - 1.2 mg/dL TOTAL PROTEIN, PLASMA (LAB) 7.9 6.4 - 8.2 g/dL ALBUMIN, PLASMA (LAB) 3.3 (L) 3.5 - 4.7 g/dL ALK PHOS 130 (H) 42 - 98 U/L AST(SGOT) 28 <=41 U/L ALT (SGPT) 37 <=60 U/L ANION GAP 7 4 - 11 mmol/L ANION GAP(ALB CORRECTED) 8 4 - 11 mmol/L POTASSIUM CMNT No Hemo BILI T CMNT No Hemo AST CMNT No Hemo 12 LEAD ECG Result Value Ref Range VENTRICULAR RATE 84 bpm ATRIAL RATE 85 ms P-R INTERVAL 194 ms P AXIS 17 deg QRS DURATION 79 ms QT 372 ms QTCB 440 ms R AXIS 16 deg T AXIS 61 deg ECG IMPRESSION Sinus rhythm ECG IMPRESSION LVH by voltage- BORDERLINE ECG - ECG IMPRESSION Electronically signed by: NOAM WEBB 04-09-2017 18:02:28 CBC AND AUTO DIFF Result Value Ref Range WHITE CELL COUNT 11.60 (H) 3.50 - 10.80 K/cu mm RED CELL COUNT 5.11 4.00 - 5.20 M/cu mm HEMOGLOBIN 15.8 12.0 - 16.0 g/dL HEMATOCRIT 47.2 (H) 36.0 - 46.0 % MCV 92.4 80.0 - 96.0 fL MCHC 33.5 33.0 - 35.5 g/dL RDW SD 43.8 35.1 - 46.3 fL PLATELET COUNT 297 150 - 400 K/cu mm MPV 9.4 (L) 9.7 - 12.3 fL NRBC% 0.0 0.0 - 0.3 % NRBC# 0.00 0.00 - 0.02 K/cu mm NEUTROPHIL % 67.7 50.0 - 70.0 % LYMPHOCYTE % 19.5 18.0 - 42.0 % MONOCYTE % 12.0 (H) 3.5 - 9.0 % EOS % 0.1 (L) 1.0 - 3.0 % BASO % 0.3 0.0 - 2.0 % IG% 0.4 0.0 - 1.0 % NEUTROPHIL # 7.86 (H) 1.80 - 7.70 K/cu mm LYMPHOCYTE # 2.26 1.00 - 4.80 K/cu mm MONOCYTE # 1.39 (H) 0.10 - 0.90 K/cu mm EOS # 0.01 0.00 - 0.50 K/cu mm BASO # 0.03 0.00 - 0.10 K/cu mm IG# 0.05 0.00 - 0.10 K/cu mm documented in this encounter Discharge Instructions Instructions Mendy Sage MD - 04/09/2017Thank you for coming to the [facility] Emergency Depa rtment. You were seen in the emergency department for knee pain. . In order to assess whethe r there is an emergent cause of your symptoms, you received a xray which showed swelling but no acute fracture. We discussed doing a joint tap to assess for infection or inflammation, however, you preferred to not do this at this time. Please plan to take anti-inflammatories such as Advil or naproxen. You may also take your normal pain medications Tylenol and oxyco done. Keep elevated and apply ice. A consult has been placed to the orthopedic surgery [facility]. You'll need to follow-up with them in 2-3 weeks for reexamination and MRI if your pain i s not improving. Please return to the emergency department immediately if you have continuing symptoms, wors ening symptoms, fever, worsening pain, severe headache, vision changes, facial droop, confus ion, increasing frequency of seizures, vomiting, chest pain, shortness of breath, redness or rash around the knee, increased swelling, decreased range of motion, or any other symptoms that are acutely concerning. Note: If you had labs (blood tests) or imaging (CT scan or x-rays) during your visit, the r esults of these tests may be preliminary at this time. Our usual practice is to follow up o n tests within a few days of a patient's discharge from the Emergency Department and notify patients of updated data or new developments, which may include changes to your treatment pl an. If this happens, we will contact you. If you need to update your contact information, please alert your nurse or physician before you leave the Emergency Department. At the time of discharge, these instructions were discussed with you, any questions you had were answered, and you attested that you fully understood these instructions and the plan f or management of your health concerns. AttachmentsThe following attachments cannot be sent through Care Everywhere.Knee Pain or In jury (Salvadorean)documented in this encounter Medications at Time of [...] documented as of this encounter Progress Notes Osvaldo Pritchett - 04/09/2017 6:25 PM PSTBrief Progress Note Henrique Casas is a 46 year old female with CP and congenital hydrocephalus s/p shunt placemen t, last revised in 2016. She presented to the ED for a knee injury but did mention possible recent absence seizures. She is being followed by Neurosurgery and has a follow up plan on to consider making changes to the shunt valve setting. Per report, the family is not conc erned for neurological dysfunction. CT head obtained today is largely stable, possible sligh t decrease in the size of the ventricules It will be appropriate to proceed with the follow-up as already scheduled. Return to ED for any worsening or new neurological complaints. Osvaldo Pritchett MD, PhD PGY-3 Resident Neurosurgery [id number] signed by Osvaldo Pritchett at 04/09/2017 6:29 PM PSTdocumented in this en counter Plan of Treatment +--------+---------+ + + + | Date | Type | Specialty | Care Team | Description | +--------+---------+ + + + | 11/24/ | Office | Neurological Surgery | Nolvia Delgado, | | | 2019 | Visit | | [address] | | | | | | [place], [place] | | | | | | [address] | | | | | | [phone] | | | | | | | | +--------+---------+ + + + documented as of this encounter Procedures + +--------+ + + + | Procedure Name | Priori | Date/Time | Associated Diagnosis | Comments | | | ty | | | | + +--------+ + + + | X-RAY KNEE 2 VIEWS | Urgent | 04/09/2017 | | Results for this | | LEFT | | 4:05 PM | | procedure are in the | | | | PST | | results section. | + +--------+ + + + | CT HEAD WO CONTRAST | Urgent | 04/09/2017 | | Results for this | | | | 3:48 PM | | procedure are in the | | | | PST | | results section. | + +--------+ + + + | 12 LEAD ECG | Routin | 04/09/2017 | | Results for this | | | e | 3:39 PM | | procedure are in the | | | | PST | | results section. | + +--------+ + + + | CBC AND AUTO DIFF | Urgent | 04/09/2017 | | Results for this | | | | 2:53 PM | | procedure are in the | | | | PST | | results section. | + +--------+ + + + | CBC, WITH | Urgent | 04/09/2017 | | Results for this | | DIFFERENTIAL | | 2:53 PM | | procedure are in the | | | | PST | | results section. | + +--------+ + + + | COMPLETE METABOLIC | Urgent | 04/09/2017 | | Results for this | | SET | | 2:53 PM | | procedure are in the | | (NA,K,CL,CO2,BUN,CRE | | PST | | results section. | | AT,GLUC,CA,AST,ALT,B | | | | | | VINAY TOTAL,ALK | | | | | | PHOS,ALB,PROT TOTAL) | | | | | + +--------+ + + + | ED INFORMATION | Routin | 04/09/2017 | | Results for this | | EXCHANGE | e | 2:32 PM | | procedure are in the | | | | PST | | results section. | + +--------+ + + + documented in this encounter Results X-RAY KNEE 2 VIEWS LEFT (04/09/2017 4:05 PM PST) + + | Specimen | + + | | + + + + + | Narrative | Performed At | + + + | STUDY: KNEE 2 VIEWS LEFT HISTORY: Pain. COMPARISON: None. | [facility] | | FINDINGS: No evidence of acute fracture or dislocation. | RADIOLOGY VOICE | | There is a small knee joint effusion. There is trace | RECOGNITION | | mineralization projecting over the medial tibiofemoral compartment. | | | IMPRESSION: Small joint effusion without acute osseous | | | abnormalities. If clinical suspicion persists for internal | | | derangement, MRI of the knee may be considered for further | | | characterization as clinically desired. I have personally | | | reviewed the images and, if necessary, edited the report. I agree | | | with the report as now presented. | | + + + + + | Procedure Note | + + | Service Account, Radiant Res In Interface - 04/09/2017 4:14 PM PST STUDY: KNEE 2 | | VIEWS LEFTHISTORY: Pain.COMPARISON: None.FINDINGS: No evidence of acute fracture or | | dislocation.There is a small knee joint effusion.There is trace mineralization | | projecting over the medial tibiofemoral compartment.IMPRESSION: Small joint effusion | | without acute osseous abnormalities.If clinical suspicion persists for internal | | derangement, MRI of the knee may be considered for further characterization as | | clinically desired.I have personally reviewed the images and, if necessary, edited the | | report. I agree with the report as now presented. | |No evidence of acute fracture or dislocation. | | | |There is a small knee joint effusion. | | | |There is trace mineralization projecting over the medial tibiofemoral compartment. | | | |IMPRESSION: | | | |Small joint effusion without acute osseous abnormalities. | | | |If clinical suspicion persists for internal derangement, MRI of the knee may be considered for further characterization as clinically desired. | | | | | |I have [...] | | | + +---------+ + + CT HEAD WO CONTRAST (04/09/2017 3:48 PM PST) + + | Specimen | + + | | + + + + + | Narrative | Performed At | + + + | EXAM: CT head without contrast HISTORY: Seizure, | [facility] | | ventriculoperitoneal shunt. COMPARISON: 12/26/16 TECHNIQUE: CT | RADIOLOGY VOICE | | of the head without contrast. FINDINGS: Brain: Right | RECOGNITION | | posterior approach ventriculoperitoneal shunt appears intact | | | throughout its visualized portions, terminating in unchanged position | | | within the left frontal horn. Lateral and third ventricles remains | | | enlarged, unchanged in size from 12/26/2016, for example third | | | ventricle measures 24 mm, unchanged. Left frontotemporal extra-axial | | | fluid collection has decreased in size, now measuring 8 mm in depth, | | | previously 10 mm., Right parietal extra-axial fluid collection has | | | also decreased, now 16 mm in depth, previously 21 mm.. No evidence | | | of hemorrhage, mass, or acute infarction. The ventricles are normal | | | in size and morphology. Soft tissues: Unremarkable Skull and | | | skull base: Multiple calvarial bur holes and posterior vertex | | | flattening are redemonstrated Mastoids and middle ears are | | | unremarkable. Face/orbits: Visualized portions are unremarkable. | | | Paranasal sinuses: Visualized portions are unremarkable. | | | IMPRESSION: Unchanged supratentorial ventriculomegaly. | | | Decreasing left frontotemporal and right parietal extra-axial fluid | | | collections. I have personally reviewed the images and, if | | | necessary, edited the report. I agree with the report as now | | | presented. | | + + + + + | Procedure Note | + + | Service Account, Radiant Res In Interface - 04/09/2017 4:46 PM PST EXAM: CT head | | without contrastHISTORY: Seizure, ventriculoperitoneal shunt.COMPARISON: | | 12/26/16TECHNIQUE: CT of the head without contrast.FINDINGS:Brain: Right posterior | | approach ventriculoperitoneal shunt appears intact throughout its visualized portions, | | terminating in unchanged position within the left frontal horn. Lateral and third | | ventricles remains enlarged, unchanged in size from 12/26/2016, for example third | | ventricle measures 24 mm, unchanged. Left frontotemporal extra-axial fluid collection | | has decreased in size, now measuring 8 mm in depth, previously 10 mm., Right parietal | | extra-axial fluid collection has also decreased, now 16 mm in depth, previously 21 mm.. | | No evidence of hemorrhage, mass, or acute infarction. The ventricles are normal in | | size and morphology.Soft tissues: UnremarkableSkull and skull base: Multiple calvarial | | bur holes and posterior vertex flattening are redemonstrated Mastoids and middle ears | | are unremarkable.Face/orbits: Visualized portions are unremarkable.Paranasal sinuses: | | Visualized portions are unremarkable.IMPRESSION:Unchanged supratentorial | | ventriculomegaly.Decreasing left frontotemporal and right parietal extra-axial fluid | | collections.I have personally reviewed the images and, if necessary, edited the report. | | I agree with the report as now presented. | |Paranasal sinuses: Visualized portions are unremarkable. | | | |IMPRESSION: | | | |Unchanged supratentorial ventriculomegaly. | | | |Decreasing left frontotemporal and right parietal extra-axial fluid collections. | | | | | |I have [...] | | | + +---------+ + + 12 LEAD ECG (04/09/2017 3:39 PM PST) + + + + + + | Component | Value | Ref Range | Performed | Pathologist | | | | | At | Signature | + + + + + + | VENTRICULAR | 84 | bpm | [facility] | | | RATE | | | OF | | | | | | CARDIOLOGY | | + + + + + + | ATRIAL RATE | 85 | ms | [facility] | | | | | | OF | | | | | | CARDIOLOGY | | + + + + + + | P-R | 194 | ms | [facility] | | | INTERVAL | | | OF | | | | | | CARDIOLOGY | | + + + + + + | P AXIS | 17 | deg | [facility] | | | | | | OF | | | | | | CARDIOLOGY | | + + + + + + | QRS | 79 | ms | [facility] | | | DURATION | | | OF | | | | | | CARDIOLOGY | | + + + + + + | QT | 372 | ms | [facility] | | | | | | OF | | | | | | CARDIOLOGY | | + + + + + + | QTC-BAZETT | 440 | ms | [facility] | | | | | | OF | | | | | | CARDIOLOGY | | + + + + + + | R AXIS | 16 | deg | [facility] | | | | | | OF | | | | | | CARDIOLOGY | | + + + + + + | T AXIS | 61 | deg | [facility] | | | | | | OF | | | | | | CARDIOLOGY | | + + + + + + | ECG | Sinus rhythm | | [facility] | | | IMPRESSION | | | OF | | | | | | CARDIOLOGY | | + + + + + + | ECG | LVH by voltage- | | [facility] | | | IMPRESSION | BORDERLINE ECG - | | OF | | | | | | CARDIOLOGY | | + + + + + + | ECG | Electronically signed | | [facility] | | | IMPRESSION | by: NOAM WEBB | | OF | | | | 04-09-2017 18:02:28 | | CARDIOLOGY | | + + [...] + + + + + | [facility] OF | [address] | [place], [place] | | | CARDIOLOGY | [address] | [address] | | + + + + + CBC AND AUTO DIFF (04/09/2017 2:53 PM PST) + + + + + + | Component | Value | Ref Range | Performed | Pathologist | | | | | At | Signature | + + + + + + | WHITE CELL | 11.60 (H) | 3.50 - 10.80 | [facility] | | | COUNT | | K/cu mm | LABORATORY | | | | | | SERVICES, | | | | | | CORE | | + + + + + + | RED CELL | 5.11 | 4.00 - 5.20 | [facility] | | | COUNT | | M/cu mm | LABORATORY | | | | | | SERVICES, | | | | | | CORE | | + + + + + + | HEMOGLOBIN | 15.8 | 12.0 - 16.0 | [facility] | | | | | g/dL | LABORATORY | | | | | | SERVICES, | | | | | | CORE | | + + + + + + | HEMATOCRIT | 47.2 (H) | 36.0 - 46.0 % | [facility] | | | | | | LABORATORY | | | | | | SERVICES, | | | | | | CORE | | + + + + + + | MCV | 92.4 | 80.0 - 96.0 fL | [facility] [...] + + + + | PLATELET | 297 | 150 - 400 K/cu | [facility] [...] + + + + | NEUTROPHIL | 67.7 | 50.0 - 70.0 % | [facility] | | | % | | | LABORATORY | | | | | | SERVICES, | | | | | | CORE | | + + + + + + | LYMPHOCYTE | 19.5 | 18.0 - 42.0 % | [facility] | | | % | | | LABORATORY | | | | | | SERVICES, | | | | | | CORE | | + + + + + + | MONOCYTE % | 12.0 (H) | 3.5 - 9.0 % | [facility] | | | | | | LABORATORY | | | | | | SERVICES, | | | | | | CORE | | + + + + + + | EOS % | 0.1 (L) | 1.0 - 3.0 % | [facility] | | | | | | LABORATORY | | | | | | SERVICES, | | | | | | CORE | | + + + + + + | BASO % | 0.3 | 0.0 - 2.0 % | [facility] | | | | | | LABORATORY | | | | | | SERVICES, | | | | | | CORE | | + + + + + + | IG% | 0.4Comment: Increased | 0.0 - 1.0 % | [facility] | | | | immature granulocytes | | LABORATORY | | | | (IG) define a left | | SERVICES, | | | | shift. Immature | | CORE | | | | granulocytes (IG) are an | | | | | | automated count of | | | | | | metamyelocytes, | | | | | | myelocytes and | | | | | | promyelocytes. Bands | | | | | | are not included in the | | | | | | IG count. Bands are | | | | | | included in the | | | | | | neutrophil count. | | | | + + + + + + | NEUTROPHIL | 7.86 (H) | 1.80 - 7.70 | [facility] | | | # | | K/cu mm | LABORATORY | | | | | | SERVICES, | | | | | | CORE | | + + + + + + | LYMPHOCYTE | 2.26 | 1.00 - 4.80 | [facility] | | | # | | K/cu mm | LABORATORY | | | | | | SERVICES, | | | | | | CORE | | + + + + + + | MONOCYTE # | 1.39 (H) | 0.10 - 0.90 | [facility] | | | | | K/cu mm | LABORATORY | | | | | | SERVICES, | | | | | | CORE | | + + + + + + | EOS # | 0.01 | 0.00 - 0.50 | [facility] | | | | | K/cu mm | LABORATORY | | | | | | SERVICES, | | | | | | CORE | | + + + + + + | BASO # | 0.03 | 0.00 - 0.10 | [facility] | | | | | K/cu mm | LABORATORY | | | | | | SERVICES, | | | | | | CORE | | + + + + + + | IG# | 0.05 | 0.00 - 0.10 | [facility] | [...] At | + + + | New reference ranges for IG% and IG# effective 04/06/2017. | [facility] | | Increased immature granulocytes (IG) define a left shift. Immature | LABORATORY | | granulocytes (IG) are an automated count of metamyelocytes, myelocytes | SERVICES, CORE | | and promyelocytes. Bands are not included in the IG count. Bands are | | | included in the neutrophil count. | | + + + + + + + + | Performing | Address | City/State/Zipcode | Phone Number | | Organization | | | | + + + + + | [facility] | [address] | [place] [address] | | | SERVICES, CORE | [address] | | | + + + + + COMPLETE METABOLIC SET (NA,K,CL,CO2,BUN,CREAT,GLUC,CA,AST,ALT,BILI TOTAL,ALK PHOS,ALB,PROT TOTAL) (04/09/2017 2:53 PM PST) + +---------+ + + + | Component | Value | Ref Range | Performed | Pathologist | | | | | At | Signature | + +---------+ + + + | GLUCOSE, | 96 | 70 - 99 mg/dL | [facility] [...] | | | LABORATORY | | | IRANIAN | | | SERVICES, | | | | | | CORE | | + +---------+ + + + | EGFR NON | >60 | >60 mL/min | [facility] | | | -[facility] | | | LABORATORY | | | RICAN | | | SERVICES, | | | | | | CORE | | + +---------+ + + + | SODIUM, | 135 [...] +---------+ + + + | CHLORIDE, | 103 | 97 - 108 mmol/L | [facility] [...] +---------+ + + + | CALCIUM, | 9.2 | 8.6 - 10.2 | [facility] | | | PLASMA | | mg/dL | LABORATORY | | | (LAB) | | | SERVICES, | | | | | | CORE | | + +---------+ + + + | CALCIUM(ALB | 9.8 | 8.6 - 10.2 | [facility] | [...] +---------+ + + + | TOTAL | 7.9 | 6.4 - 8.2 g/dL | [facility] [...] + + + | ALK PHOS | 130 (H) | 42 - 98 U/L | [facility] | | | | | | LABORATORY | | | | | | SERVICES, | | | | | | CORE | | + +---------+ + + + | AST(SGOT) | 28 | <=41 U/L | [facility] | | | | | | LABORATORY | | | | | | SERVICES, | | | | | | CORE | | + +---------+ + + + | ALT (SGPT) | 37 | <=60 U/L | [facility] | | [...] Performed At | + + + | Adult glucose reference range change effective 7-03-02. GFR is | [facility] | | estimated using the MDRD equation recommended by the National Kidney | LABORATORY | | Disease Education Program. Estimated GFR Interpretive Information: | SERVICES, CORE | | <60 mL/min/1.73 sq m Chronic Kidney Disease | | | <15 mL/min/1.73 sq m Kidney Failure Estimated | | | GFR greater that 60 mL/min/1.73 sq m is of limited clinical value. | | | The MDRD equation is not valid in the following situations: - | | | Patients under 18 years of age - Severe malnutrition or obesity - | | | Vegetarian diet - Rapidly changing kidney function | | + + + + + + + + | Performing | Address | City/State/Zipcode | Phone Number | | Organization | | | | + + + + + | [facility] | [address] | [place] [address] | | | SERVICES, CORE | [address] | | | + + + + + ED INFORMATION EXCHANGE (04/09/2017 2:32 PM PST) + + | Specimen | + + | | + + + + + | Narrative | Performed At | + + + | [id number] This patient has registered at the | [facility] | | [facility] Emergency Department For more | MEDICAL | | information visit: | TECHNOLOGIES | | [email or web address] | | | [id number] ED Care Guidelines There are currently no ED Care Guidelines | | | in MADDIE for this patient. Please check your facility's medical | | | records system. Recent Emergency Department Visit Summary Admit | | | Date Facility City State Type Major Type Diagnoses or Chief Complaint | | | Apr 09, 2017 [facility] [place] | | | Emergency Emergency Mar 29, 2017 [facility]. [place] | | | Emergency Emergency OTHER AND U[place]PECIFIED [place]RT[place] | | | STRNOUS MOVE/PST Other care home (current) drug therapy | | | Pain in left knee OTHER SPECIFIED POSTPROCEDURAL STATES | | | Sprain of unspecified site of left knee, initial encounter | | | Presence of cerebrospinal fluid drainage device Recent | | | Inpatient Visit Summary No recorded inpatient visits. E.D. Visit | | | Count (12 mo.) Facility Visits [facility] | | | [address] 4 Total 6 Note: Visits | | | indicate total known visits. The above information is provided | | | for the sole purpose of patient treatment. Use of this information | | | beyond the terms of Data Sharing Memorandum of Understanding and | | | License Agreement is prohibited. In certain cases not all visits may | | | be represented. Consult the aforementioned facilities for | | | additional information. [employer] - | | | [place], [place] - [email or web address] | | + + + + + | Procedure Note | + + | Service Account, Rtf Results Inbound - 04/09/2017 2:34 PM PST Formatting of this | | note might be different from the original.MADDIE?NOTIFICATION?04/09/2017 14:31?VAISHALI, | | HENRIQUE Seth? patient has registered at the [facility] [employer] | | [facility] For more information visit: | | [email or web address] ED Care | | GuidelinesThere are currently no ED Care Guidelines in MADDIE for this patient. Please | | check your facility's medical records system.Recent Emergency Department Visit | | SummaryAdmit Date Facility [facility] State Type Major Type Diagnoses or Chief Complaint Mar | | 2017 [facility] [place] Emergency Emergency Mar 29 | | 2017 [facility]. 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 E.D. Visit Count (12 mo.)Facility Visits | | [facility] 2 [facility] 4 Total 6 Note: Visits | | indicate total known visits. The above information is provided for the sole purpose of | | patient treatment. Use of this information beyond the terms of Data Sharing Memorandum | | of Understanding and License Agreement is prohibited. In certain cases not all visits | | may be represented. Consult the aforementioned facilities for additional information. ? | | [employer] - [place], [place] - | | [email or web address] | |Recent Inpatient Visit Summary | |No recorded inpatient visits. | | | |E.D. Visit Count (12 mo.) | |Facility Visits | |[facility] 2 | |[facility] 4 | |Total 6 | |Note: Visits indicate total known visits. | | | |The above information is provided for the sole purpose of patient treatment. Use of this in formation beyond the terms of Data Sharing Memorandum of Understanding and License Agreement is prohibited. In | |certain cases not all visits may be represented. Consult the aforementioned facilities for additional information. | |? [employer] - [place], [place] - [email or web address] | + + + + + + + | Performing | Address | City/State/Zipcode | Phone Number | | Organization | | | | + + + + + | [facility] | [address] | [place], [place] | [phone] | | TECHNOLOGIES | [address] | [address] | | + + + + + documented in this encounter Visit Diagnoses + + | Diagnosis | + + | Acute pain of left knee - Primary | + + | Knee effusion, left Effusion of lower leg joint | + + | Hydrocephalus (HCC) Obstructive hydrocephalus | + + documented in this encounter Administered Medications + +--------+---------+------+------+------+ | Medication Order | MAR | Action | Dose | Rate | Site | | | Action | Date | | | | + +--------+---------+------+------+------+ + +---+ | enoxaparin (LOVENOX) injection | | | 40 mg 40 mg, subcutaneous, EVERY | | | EVENING, First dose on Meera | | | 04/10/17 at 2100, Until | | | Discontinued | | + +---+ | | | + +---+ | ondansetron (ZOFRAN) injection | | | 4 mg 4 mg, intravenous, EVERY 12 | | | HOURS NEEDED, Starting Wed | | | 04/09/17 at 2200, Until Meera | | | 04/10/17 at 1313, nausea/vomiting, | | | first line | | + +---+ | | | + +---+ documented in this encounter"
--- OUTSIDE RECORDS SUMMARY | ~2019-10-25 | XMS | Encounter Summary ---
Demographics + + + | Address | [address] | | | [place] [address] | + + + | Home Phone [...] [place] | | | | | [address] | | + + + + + | Scott Mcgarry ECON | Unknown | | + + + + + Care Team Providers + +------+ + | Care Funder Name | Role | Phone | + +------+ + | Patricia Stevens | PCP | | + +------+ + Encounter Details +--------+ + + + + | Date | Type | Department | Care Team | Description | +--------+ + + + + | 07/18/ | Automatic Presser | Neurosurgery at | Jeannine Hebert | Hydrocephalus | | 2017 | | [facility] [address] | [place] | (Primary Dx) | | | | [facility] | [facility], | | | | | | Building | | | | | | floor [place], [place] | | | | | | [address] | | | | | | [phone] | | | +--------+ + + + [...] | | 2019 | Visit | | [address] | | | | | | [place], [place] | | | | | | [address] | | | | | | [phone] | | | | | | | | +--------+---------+ + + + documented as of this encounter Visit Diagnoses + + | Diagnosis | + + | Hydrocephalus (HCC) - Primary Obstructive hydrocephalus | + + documented in this encounter"
--- OUTSIDE RECORDS SUMMARY | ~2019-10-25 | XMS | Encounter Summary ---
Demographics + + + | Address | [address] | | | [place] [address] | + + + | Home Phone | | + + + | Preferred Language | Unknown | + + + | Marital Status | Single | + + + | Anabaptist Affiliation | NRP | + + + [...] [place] | | | | | [address] | | + + + + + | Scott Nicole | ECON | Unknown | + | + + + + + Care Team Providers + +------+ + | Care Barge Worker Name | Role | Phone | + +------+ + | Gabe Baird | PCP | | + +------+ + Encounter Details +--------+--------+ + + + | Date | Type | Department | Care Team | Description | +--------+--------+ + + + | 10/13/ | Travel | | | | | 2020 | | | | | +--------+--------+ + [...] [address] | | | | | | [place], [place] | | | | | | [address] | | | | | | [phone] | | | | | | | | +--------+---------+ + + + documented as of this encounter Visit Diagnoses Not on filedocumented in this encounter"
--- OUTSIDE RECORDS SUMMARY | ~2019-10-25 | XMS | Encounter Summary ---
Demographics + + + | Address | [address] | | | [place] [address] | + + + | Home Phone [...] [place] | | | | | [address] | | + + + + + | Scott Mcgarry ECON | Unknown | | + + + + + Care Team Providers + +------+ + | Care Spring Coiler Name | Role | Phone | + [...] [id number] | | | | | | [facility] | | | | | | [address] [place], [place] | | | | | | [address] | | | | | | [phone] | | | +--------+ + + + [...] perfume, lotions or powder. Remove any nail serbian from at least one fingernail. Do not [...] your procedure. Surgery Check in Locations Admitting [facility] Surgery Check in Time: Someone from your surgeon's office or [facility] will provide you with information regarding [...] it is after office hours, call the [facility] heel nailing machine operator at [phone] and ask them to page your doc tor. documented in this encounter Plan of Treatment +--------+---------+ + + + | Date | Type | Specialty | Care Team | Description | +--------+---------+ + + + | 11/24/ | Office | Neurological Surgery | Nolvia Delgado, | | | 2019 | Visit | | [address] | | | | | | [place], [place] | | | | | | [address] | | | | | | [phone] | | | | | | | | +--------+---------+ + + + documented as of this encounter Visit Diagnoses Not on filedocumented in this encounter"
--- OUTSIDE RECORDS SUMMARY | ~2019-10-25 | XMS | Encounter Summary ---
Demographics + + + | Address | [address] | | | [place] [address] | + + + | Home Phone [...] Author + + + | Author | [facility] | + + + | Organization | [facility] | + + + | Address | Unknown | + + + | Phone | Unavailable | + + + Support + + + + + | Name | Relationship | Address | Phone | + + + + + | Malina Nicole | ECON | [phone] | | | | | [place] | | | | | [address] | | + + + + + | Scott Nicole | ECON | Unknown | | + + + + + Care Team Providers + +------+ + | Care Marble Machine Tender Name | Role | Phone | + +------+ + | Gabe Baird DO | PCP | | + +------+ + Reason for Referral Occupational Therapy (Routine) +--------+--------+ + + + + | Status | Reason | Specialty | Diagnoses / | Referred By | Referred To | | | | | Procedures | Contact | Contact | +--------+--------+ + + + + | Closed | | Occupational | Diagnoses | [facility] | | | | | Therapy | Declining | Daniel King | | | | | | functional | U, MD,MPH | | | | | | status | [address] | | | | | | Procedures | [address] | | | | | | OCCUPATIONAL | [address] | | | | | | THERAPY | [place], [place] | | | | | | REFERRAL | [address] | | | | | | | Phone: | | | | | | | [phone] | | | | | | | Fax: | | | | | | | [phone] | | +--------+--------+ + + + + Physical Therapy (Routine) +--------+--------+ + + + + | Status | Reason | Specialty | Diagnoses / | Referred By | Referred To | | | | | Procedures | Contact | Contact | +--------+--------+ + + + + | Closed | | Physical | Diagnoses | [facility] | | | | | Therapy | Declining | Daniel King | | | | | | functional | U, MD,MPH | | | | | | status | [address] | | | | | | Procedures | [address] | | | | | | PHYSICAL | Rd | | | | | | THERAPY | [place], [place] | | | | | | REFERRAL | [address] | | | | | | | Phone: | | | | | | | [phone] | | | | | | | Fax: | | | | | | | [phone] | | +--------+--------+ + + + + Reason for Visit + + + | Reason | Comments | + + + | Weakness | | + + + AUTH/CERT +--------+--------+ [...] | +--------+ + + + + | 08/26/ | Hospital | [facility] [address] | Payam Frye MD | | | 2019 - | Encounter | [address] | [address] | | | | | [place], [place] | [address] [place], | | | 08/29/ | | [address] | [place] [address] | | | 2019 | | [phone] | [phone] | | | | | | | | | | | | Juliana Arias, | | | | | | [address] | | | | | | [address] | | | | | | [place], [place] | | | | | | [address] | | | | | | [phone] | | | | | | | | | | | | Perri Butterfield MD | | | | | | [address] | | | | | | [facility], | | | | | | [place] [address] | | | | | | [phone] | | | | | | | | | | | | Bernard King, | | | | | | Daniel Baltazar MD,[facility] [address] | | | | | [address] | | | | | | [address] [place], [place] | | | | | | [address] | | | | | | [phone] | | | | | | | [...] + + + | Blood Pressure | 124/91 | 08/29/2018 7:54 AM | | | | | PDT | | + + + + + | Pulse | 80 | 08/29/2018 7:54 AM | | | | | PDT | | + + + + + | Temperature | 36.8 C (98.2 F) | 08/29/2018 7:54 AM | | | | | PDT | | + + + + + | Respiratory Rate | 16 | 08/29/2018 7:54 AM | | | | | PDT | | + + + + + | Oxygen Saturation | 94% | 08/29/2018 7:54 AM | | | | | PDT | | + + + + + | Inhaled Oxygen | - | - | | | Concentration | | | | + + + + + | Weight | 113.4 kg (250 lb) | 08/26/2018 5:58 PM | | | | | PDT | | + + + + + | Height | - | - | | + + + + + | Body Mass Index | 38.01 | 07/09/2018 1:23 PM | | | [...] + documented as of this encounter Discharge Summaries Daniel Garcia MD,MPH - 08/29/2018 2:34 PM PDTFormatting of this note might be d ifferent from the original. INPATIENT DISCHARGE SUMMARY [facility] Clinical Hospitalist Service Discharging Provider: DANIEL PRADHAN MD,MPH Discharging Attending Physician: DANIEL PRADHAN MD,MPH PCP: Gabe Baird DO Admission Date: 08/26/2018 Discharge Date: 08/29/18 Hospital Stay: 3 day(s) Principal Final Diagnosis: Urinary tract infection, uncomplicated, due to E coli Additional Diagnoses Leukocytosis, resolved Bilateral lower extremity edema Weakness, acute on chronic Cerebral palsy, spastic quadriparetic Hydrocephalus s/p VPS 2016 c/b b/l chronic subdural hematomas Seizure disorder Protein gap Hepatic steatosis Cholelithiasis Consultants (service/attending name): Neurosurgery/Dr. Nolvia Delgado Procedures: None Reason for Admission: Henrique Casas is a 48 y.o. 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 Hospital Course by Problem (with follow-up plan/instructions): #UTI, uncomplicated, due to E coli #Weakness, acute #Leukocytosis Patient was brought to [facility] by her parents for acute worsening of chronic weakness with rel ated decline in mobility (at baseline, can stand to pivot to wheelchair with assist, and goe s on frequent outings with parents and caregiver). There was initial concern for possible STUNNER S malfunction or infection but evaluation by Neurosurgery, including CT head and shunt serie s, resulted in low suspicion for shunt malfunction. PNA was also considered as pt endorsed i ntermittent cough but chest imaging visible on shunt series showed no signs of consolidation . On further questioning, pt endorsed dysuria and increased urinary frequency concerning for UTI, supported by UA with 65 WBCs and systemic leukocytosis. Though UCx grew only 10K E col i, pt demonstrated rapid improvement on empiric nitrofurantoin and reported that she was edin k to baseline strength by day 3 of treatment. Pt was evaluated during admission by PT and, o n the day of discharge, was felt to be back to baseline by their assessment and per pt's own report. She was discharged with nitrofurantoin 100mg po bid to complete 5 day course (throu end of 08/31/18). #Bilateral lower extremity edema vs weight gain Family initially expressed concern that pt's decline in mobility and increase in weakness m ight be in part related to an increase in the size of her b/l lower extremity, which they at tributed to edema. Workup performed during admission was inconclusive for a cause of bilater al LE edema. No e/o cardiac cause (low BNP, TTE wnl), hepatic cause (no e/o thrombus/jerel watson), distal vascular cause (Duplex negative BLE), renal cause (nl Cr, no proteinuria), or nutritional cause (albumin wnl on admission). TSH was mildly elevated but FT4 high end of n l range. Pt was encouraged to follow up with her PCP. #Hepatic steatosis #Cholelithiasis Incidental findings on RUQUS performed as evaluation for JOSE. Discussed with father by candace e, including s/sx of potential cholecystitis to watch for, and dietary management for both. Suspect isolated AP elevation may be related to hepatic steatosis. Pt was encouraged to foll ow up with PCP. #Cerebral Palsy, spastic quadriparetic #Hydrocephalus s/p VPS CT head and shunt series unchanged from prior per NSG evaluation. Neuro exam performed by N RAD at presentation thought also consistent with patient's baseline. Pt was continued on home baclofen 10 mg every morning. NSG recommended that pt return for 6-month clinic follow-up a s previously scheduled. #Protein Gap: New gap of 5 noted on admission, thought likely reactive in setting of UTI; i mproved with management of UTI as above. #Elevated Hct: Thought due to volume contraction, normalized s/p IV hydration. #Seizure disorder: Stable, no evidence of sz during admission. Continued home lamotrigine. Discharge Physical Exam: Last 24 hour min/max Temp: 36.8 C (98.2 F) Temp Min: 36.5 C (97.7 F) Max: 36.8 C (98.2 F) Pulse: 80 Pulse Min: 76 Max: 172 Resp: 16 Resp Min: 16 Max: 16 BP: 124/91 BP Min: 124/91 Max: 158/117 SpO2: 94 % SpO2 Min: 94 % Max: 99 % Body mass index is 38.01 kg/m. Discharge weight: Wt Readings from Last 1 Encounters: 08/26/18 (!) 113.4 kg (250 lb) General: NAD, alert, non-toxic appearing, resting in bed, bright HEENT: Unable to assess EOMI/visual cervantes due to b/l decreased visual acuity, MMM, no JVD appreciated Cardiovascular: RRR, nl S1/S2, no M/R/G Respiratory: CTAB, no W/R/R Abdomen: NABS, S/NT/ND, no R/G, no suprapubic TTP Extremities: W/WPx4, nonpitting JOSE b/l Skin: No rashes or lesions Neuro: Alert/oriented x3, CNII-XII grossly intact, moves all extremities spontaneously Psych: Normal affect, linear thought processes Lines: None Pertinent Findings: Labs: 08/26: BMP wnl aside from mild hyperglycemia 119 AP 147, AST/ALT/Tbili wnl TP 9, alb 4.2, gap 4.8 WBC 14 (70%N), Hct 51, plt 365 08/27: NT pro BNP 13 LA 1.5 UA mod LE, neg N, 65 WBC, 2 RBC, no bacteria, no casts/crystals 08/28: TSH 8.1, FT4 1.2 08/29: WBC 10.4 (67%N), Hct 43, plt 272 Micro: Urine culture 10K E coli Imaging: -LE venous doppler b/l 08/26: No evidence of DVT although examination is limited given patie nt scanning characteristics and lower extremity swelling. -TTE 08/27: 1. Study quality limited by poor acoustic windows. 2. The left ventricular size is normal. 3. The LV function is normal. 4. Right ventricular size, thickness and function are normal. 5. No significant valvular abnormalities seen. 6. There are no prior exams available for comparison. E:A ratio >1 -U/S liver 08/27: Hepatic steatosis. Cholelithiasis without evidence of cholecystitis. -CT head w/o 08/27: Stable ventriculomegaly when compared to CT on 07/09/2018. No acute intra cranial abnormality. -Shunt series 08/27: No shunt discontinuity identified. Pathology: None Other Studies: EKG 03/2017: NSR, nl DC, QTc 440, LVH Discharge Medications: Medication List START taking these medications nitrofurantoin monohydrate/macrocrystal 100 mg Cap Commonly known as: MACROBID Take 1 capsule by mouth two times daily for 3 days. Take one capsule by mouth every morning and evening until all doses complete - first dose at home 08/29 evening, last dose 08/31 even ing Indications: UTI CONTINUE taking these medications acetaminophen 325 mg Tab Commonly known as: TYLENOL Take 2 tablets by mouth every six hours as needed (pain). Not to exceed 3250 mg of acetamin ophen from all products per 24 hour period. baclofen 10 mg Tab Commonly known as: LIORESAL Take 1 tablet by mouth once daily in the morning. Indications: Muscle Spasms caused by a Sp inal Disease Start taking on: 08/30/2018 lamoTRIgine 100 mg Tab Commonly known as: LAMICTAL Take 100 mg by mouth two times daily. loratadine 10 mg Tab Commonly known as: CLARITIN Take 10 mg by mouth once daily as needed (seasonal allergies). multivitamin Tab Commonly known as: THERA VITAMIN Take 1 tablet by mouth once daily. polyethylene glycol 17 gram Pwpk Commonly known as: MIRALAX Mix 1 packet and take orally three times daily as needed (1st line - for no BM for 2 days). VITAMIN D3 4,000 unit Cap Generic drug: cholecalciferol (vitamin D3) Take 1 capsule by mouth once daily. Allergies: No Known Allergies Additional Instructions: Diet Regular Regular diet- There are no restrictions to your diet. You may eat or drink whatever you pr efer, though healthy food choices are recommended. Activity No activity restrictions Follow Up: Contact information for other follow-up providers DO Nathalie BERTRAND Specialty: Internal Medicine Contact information [facility] [address] [facility] [phone] Contact information for after-discharge skilled nursing Care [facility] . Service: Home Health Services Contact information [address], [facility] [address] [facility] [address] Condition at Discharge: Good Discharge Destination: Home with HHRN/PT/OT Outstanding Studies Requiring Follow-Up: None Recommendations for Follow-Up: Follow up with PCP within 1-2 weeks Code Status: Do Not Resuscitate/Do Not Intubate POLST Completed: no Daniel King MD, MPH Coverage Specialist [facility] Clinical Hospitalist Service [facility] Maribel I spent 43 minutes in coordination of care of this discharge on the day of discharge documente d in this encounter Medications at Time of [...] + + + +---------+ + + | nitrofurantoin | Take 1 capsule by | 5 | 0 | 08/30/19 | | | monohydrate/macrocry | mouth two times | capsule | | 19 | 9 | | stal 100 mg oral | daily for 3 days. | | | | | | capsuleIndications: | Take one capsule by | | | | | | urinary tract | mouth every morning | | | | | | infection | and evening until | | | | | | | all doses complete - | | | | | | | first dose at home | | | | | | | 08/29 evening, last | | | | | | | dose 08/31 evening | | | | | | | Indications: UTI | | | | | + + + +---------+ + + documented as of this encounter Progress Notes Daniel Garcia MD,MPH - 08/28/2018 6:24 PM PDTFormatting of this note might be d ifferent from the original. HOSPITALIST INPATIENT PROGRESS NOTE Author: DANIEL PRADHAN MD,MPH PCP: Gabe Baird DO Hospital Day:2 24 Hour Events: No acute events overnight TTE, RUQUS completed Continued on nitrofurantoin Current Symptoms: Feeling much better today, back to normal. Feels energetic enough to attempt OOB with PT. N o F/C/N/V/abd pain/dysuria/frequency. Physical Examination: Last 24 hour min/max Temp: 36.8 C (98.2 F) Temp Min: 36.5 C (97.7 F) Max: 36.8 C (98.2 F) Pulse: 67 Pulse Min: 67 Max: 87 Resp: 16 Resp Min: 14 Max: 16 BP: 137/83 BP Min: 114/92 Max: 147/87 SpO2: 96 % SpO2 Min: 92 % Max: 96 % Body mass index is 38.01 kg/m. Intake/Output Summary (Last 24 hours) at 08/27/18 0700 Last data filed at 08/27/18 0514 Gross per 24 hour Intake 2000 ml Output 0 ml Net 2000 ml General: NAD, alert, non-toxic appearing, resting in bed HEENT: Unable to assess EOMI/visual cervantes due to b/l decreased visual acuity, MMM, no JVD appreciated Cardiovascular: RRR, nl S1/S2, no M/R/G Respiratory: CTAB, no W/R/R Abdomen: NABS, S/NT/ND, no R/G, no SP TTP Extremities: W/WPx4, nonpitting JOSE b/l Skin: No rashes or lesions Neuro: Alert/oriented x3, CNII-XII grossly intact, moves all extremities spontaneously Laboratory Interpretation: 08/27: WBC 10 (14), Hb 43 (51), plt 272 (365); BMP wnl aside from mild Cl elevation (111); L FTs notable only for elevated AP 120 08/28: TSH elevated at 8.1 but FT4 wnl at 1.2 Micro: Urine culture 10K E coli Imaging Interpretation: LE venous doppler b/l 08/26: No evidence of DVT although examination is limited given patien t scanning characteristics and lower extremity swelling. TTE 08/27: 1. Study quality limited by poor acoustic windows. 2. The left ventricular size is normal. 3. The LV function is normal. 4. Right ventricular size, thickness and function are normal. 5. No significant valvular abnormalities seen. 6. There are no prior exams available for comparison. E:A ratio >1 U/S liver 08/27: Hepatic steatosis. Cholelithiasis without evidence of cholecystitis. EKG 03/2017: NSR, nl DC, QTc 440, LVH Current Medications: acetaminophen (TYLENOL) tablet 650 mg, 650 mg, oral, Q6H PRN baclofen (LIORESAL) tablet 10 mg, 10 mg, oral, QAM cholecalciferol (Vitamin D3) (VITAMIN D-3) capsule 4,000 Units, 4,000 Units, oral, DAILY lamoTRIgine (LAMICTAL) tablet 100 mg, 100 mg, oral, BID multivitamin (THERA VITAMIN) 1 tablet, 1 tablet, oral, DAILY nitrofurantoin monohydrate/macrocrystal (MACROBID) capsule 100 mg, 100 mg, oral, BID Assessment and Plan Henrique Casas ([id number]) is a 48 y.o. female with CP 2/2 congenital toxoplasmosis, c/b aq ueductal stenosis with STUNNER shunt, seizure disorder, who presented to ED with acute worsening of her subacute weakness in setting of UTI. #Leukocytosis #UTI, uncomplicated #Weakness, acute Patient with leukocytosis, dysuria, increased urinary frequency, concerning for UTI, UA wit h 65 WBCs. Cx with only 10K E coli. PNA also on differential in the setting of patient's cou gh however chest x-ray on shunt series without consolidation per my read. AVSS. Symptomatica lly greatly improved since initiation of nitrofurantoin. Acute weakness now appears subjecti vely to have resolved. -Cont nitrofurantoin 100 mg twice daily #BLEE, subacute #Baseline weakness, chronic Initial concern for possible STUNNER shunt malfunction given acute worsening in baseline weaknes s, but pt reports now feeling back to baseline suggesting acute component was related to UTI . STUNNER shunt series completed on presentation, NSG who feels as though it is functioning well. On discussion with family, seems that acute worsening of b/l JOSE over past several weeks is a significant contributor to perceived weakness. No e/o cardiac etiology (low BNP, TTE wnl) , hepatic etiology (no e/o thrombus/compression), distal vascular etiology (Duplex negative BLE), or renal etiology (nl Cr, no proteinuria). TSH mildly elevated but FT4 high end of nl range. -Needs repeat evaluation by PT now that symptomatically improved -Follow up with PCP #Hepatic steatosis #Cholelithiasis Incidental findings on RUQUS performed as evaluation for JOSE. Discussed with father by phon e, including s/sx of potential cholecystitis to watch for, and dietary management for both. Suspect isolated AP elevation may be related to hepatic steatosis. -Follow up with PCP #CP At baseline -Continue home baclofen 10 mg every morning #Protein Gap Pt with a protein gap of 5, this is new, likely in the setting of UTI; improved to 4 today. -Continue to monitor with repeat CMP in am #Elevated Hct Suspect this may be in setting of volume contraction, normalized s/p IV hydration. #Seizure disorder -Continue home lamotrigine CODE status: Do Not Resuscitate/Do Not Intubate - SW consult for advanced directives Thromboembolic prophylaxis: low risk - not indicated Dispo: Anticipate discharge home tomorrow per discussion with father this afternoon; he bel ieves pt would want to return home and is confident he, his , and pt's caregiver are abl e to provide adequate support at home. Discussed with CM, assistance appreciated. Requires r epeat PT evaluation prior to dc. Daniel King MD MPH Coverage Specialist Rn Clinical Hospitalist Service Department of Medicine [facility] Pager [phone] I spent 40 minutes in the care of this patient. Greater than 50% of the time was spent coun seling and coordination of care, including time spent face to face with pt and in coordinati on with unit RN, CM. Maryann Traore - 08/27/2018 11:33 AM PDTTransthoracic echocardiogram completed. Final report to follow. Daniel Wong MD,M PH - 08/27/2018 7:54 AM PDT HOSPITALIST INPATIENT PROGRESS NOTE / ADMISSION ADDENDUM Author: DANIEL PRADHAN MD,MPH PCP: Gabe Baird DO Hospital Day:1 24 Hour Events: Admitted early this am for management of UTI, AVSS Evaluated by NSG, shunt appears to be functioning well, can f/u as OP Current Symptoms: Feeling very weak. Chilled, no sweats/rigors. + urinary urgency, frequency, hesitancy with dysuria. No N/V. No RAHMAN. + cough, non-productive. Mother and caregiver at bedside note that pt has had rapid worsening in baseline mild b/l L EE over past 3 weeks, now to point that it is painful for pt to move legs. Also note that sh e has been much more fatigued than usual. She was formerly able to transfer from bed to [facility], go to park in chair, etc but now prefers to stay in bed x pas week. Has had syncope in [facility] of unclear etiology, last a few years back (unable to locate ED visit in our records, [place] irizarry mother believes she was evaluated here). No known HTN or cardiac dz. Eats well. Mother also states that pt was seen by PCP a few weeks for assessment of knee (has had effu sions in past requiring drainage) but no procedure was done recently. Physical Examination: Last 24 hour min/max Temp: 37.1 C (98.7 F) Temp Min: 36.7 C (98.1 F) Max: 37.1 C (98.7 F) Pulse: 94 Pulse Min: 94 Max: 120 Resp: 16 Resp Min: 12 Max: 16 BP: 118/84 BP Min: 91/67 Max: 141/94 SpO2: 97 % SpO2 Min: 96 % Max: 99 % Body mass index is 38.01 kg/m. Intake/Output Summary (Last 24 hours) at 08/27/18 0700 Last data filed at 08/27/18 0514 Gross per 24 hour Intake 2000 ml Output 0 ml Net 2000 ml General: NAD, alert, non-toxic appearing HEENT: MMM, no JVD appreciated Cardiovascular: RRR, nl S1/S2, no M/R/G Respiratory: CTAB, no W/R/R Abdomen: NABS, S/NT/ND, no R/G, no SP TTP Extremities: W/WPx4, 2+ nonpitting JOSE b/l Skin: No rashes or lesions Neuro: Alert/oriented x3, CNII-XII grossly intact Laboratory Interpretation: 08/26: BMP wnl aside from mild hyperglycemia 119 AP 147, AST/ALT/Tbili wnl TP 9, alb 4.2, gap 4.8 WBC 14 (70%N), Hct 51, plt 365 08/27: NT pro BNP 13 LA 1.5 UA mod LE, neg N, 65 WBC, 2 RBC, no bacteria, no casts/crystals Micro: Urine screen positive, culture pending Imaging Interpretation: CT head w/o 08/27: Stable ventriculomegaly when compared to CT on 07/09/2018. No acute intrac ranial abnormality. Shunt series 08/27: pending LE venous doppler b/l 08/26: Prelim read: No evidence of DVT although examination is limited given patient characteristics and lower extremity swelling. No TTE on file CXR 10/2015: Nl cardiac contour, no pleural effusion, clear lungs EKG 03/2017: NSR, nl DC, QTc 440, LVH Current Medications: No current facility-administered medications for this encounter. acetaminophen 325 mg oral tablet, Take 2 tablets by mouth every six hours as needed (pain). Not to exceed 3250 mg of acetaminophen from all products per 24 hour period. baclofen 10 mg oral tablet, Take 0.5 tablets by mouth once daily at bedtime. Indications: M uscle Spasticity of Spinal Origin (Patient taking differently: Take 10 mg by mouth once raegan y in the morning. Indications: Muscle Spasticity of Spinal Origin) CHOLECALCIFEROL (VITAMIN D3) 4,000 UNIT CAPSULE, Take 1 capsule by mouth once daily. lamoTRIgine 100 mg Oral tablet, Take 100 mg by mouth two times daily. loratadine 10 mg oral tablet, Take 10 mg by mouth once daily as needed (seasonal allergies) . MULTIVITAMIN ORAL, Take 1 tablet by mouth once daily in the morning. polyethylene glycol 17 gram oral powder in packet, Mix 1 packet and take orally three times daily as needed (1st line - for no BM for 2 days). Assessment and Plan Henrique Casas ([id number]) is a 48 y.o. female with CP 2/2 congenital toxoplasmosis, c/b aq ueductal stenosis with STUNNER shunt, seizure disorder, who presented to ED with acute worsening of her subacute weakness. #Leukocytosis #UTI, uncomplicated Patient with leukocytosis, dysuria, increased urinary frequency, concerning for UTI, UA wit h 65 WBCs. PNA also on differential in the setting of patient's cough however chest x-ray on shunt series without consolidation per my read. AVSS. -Nitrofurantoin 100 mg twice daily -F/u UCx #Weakness, subacute #BLEE, subacute Patient with acute worsening of weakness in the setting of continued/worsened baseline weak ness. The acute worsening of her weakness over the past 3 days is likely correlated with her UTI, thus I expect that with treatment of her UTI her acute worsening of her weakness will improve. It is unclear as to why her baseline weakness has been worsening, STUNNER shunt evaled to make sure it is not contributing, neurosurgery feels as though it is functioning well. On discussion with family, seems that acute worsening of b/l JOSE over past several weeks is a significant contributor. No known cardiac hx, though pt does have e/o LVH on prior EKG. BNP low, but may be false neg in setting of obesity. -EKG -TTE -PT eval -Appreciate neurosurgery consult #CP -Continue home baclofen 10 mg every morning #Protein Gap Pt with a protein gap of 5, this is new, likely in the setting of UTI, however would rechec k prior to discharge or at f/u, if still elevated will need full workup. -monitor #Elevated Hct Suspect this may be in setting of volume contraction, will repeat CBC now that pt is s/p IV hydration. -Rpt CBC #Seizure disorder -Continue home lamotrigine CODE status: Do Not Resuscitate/Do Not Intubate - SW consult for advanced directives Thromboembolic prophylaxis: low risk - not indicated Dispo: Obs - pending recovery of weakness and cardiac eval as above Daniel King MD MPH Coverage Specialist Rn Clinical Hospitalist Service Department of Medicine [facility] Pager [phone] I spent 60 minutes in the care of this patient. Greater than 50% of the time was spent coun seling and coordination of care, including time spent face to face with pt, her mother, and caregiver at bedside and in coordination with ED staff. ADDENDUM: TTE negative for any systolic or diastolic dysfunction. BLE Duplex negative for D VT but suboptimal study. Cause of acute b/l JOSE remains obscure, will check RUQ U/S with Dop pler for possible hepatic cause (cirrhosis vs venous obstruction). Etiology of new profound fatigue and inability to transfer remains likewise obscure, may be due to UTI? Requires ongo ing observation on abx to assess for possible improvement with this. Daniel King MD MPH Coverage Specialist Rn Clinical Hospitalist Service Department of Medicine [facility] Pager [phone] documente d in this encounter Plan of Treatment +--------+---------+ + + + | Date | Type | Specialty | Care Team | Description | +--------+---------+ + + + | 11/24/ | Office | Neurological Surgery | MickyNolvia benavides, | | | 2019 | Visit | | [address] | | | | | | [place], [place] | | | | | | [address] | | | | | | [phone] | | | | | | | | +--------+---------+ + + + documented as of this encounter Procedures + +--------+ + + + | Procedure Name | Priori | Date/Time | Associated Diagnosis | Comments | | | ty | | | | + +--------+ + + + | BASIC METABOLIC SET | Routin | 08/29/2018 | | Results for this | | (NA, K, CL, TCO2, | e | 10:57 AM | | procedure are in the | | BUN, CR, GLU, CA) | | PDT | | results section. | + +--------+ + + + | 12 LEAD ECG | Routin | 08/29/2018 | | Results for this | | | e | 10:34 AM | | procedure are in the | | | | PDT | | results section. | + +--------+ + + + | COMPLETE METABOLIC | Routin | 08/29/2018 | | Results for this | | SET | e | 6:08 AM | | procedure are in the | | (NA,K,CL,CO2,BUN,CRE | | PDT | | results section. | | AT,GLUC,CA,AST,ALT,B | | | | | | VINAY TOTAL,ALK | | | | | | PHOS,ALB,PROT TOTAL) | | | | | + +--------+ + + + | TSH W/REFLEX TO FREE | Routin | 08/28/2018 | | Results for this | | T4(IF ABNORMAL) | e | 7:42 AM | | procedure are in the | | | | PDT | | results section. | + +--------+ + + + | FREE T4 | Routin | 08/28/2018 | | Results for this | | | e | 7:42 AM | | procedure are in the | | | | PDT | | results section. | + +--------+ + + + | US LIVER | Routin | 08/27/2018 | | Results for this | | | e | 7:37 PM | | procedure are in the | | | | PDT | | results section. | + +--------+ + + + | TRANSTHORACIC | Routin | 08/27/2018 | | Results for this | | ECHOCARDIOGRAM, | e | 10:24 AM | | procedure are in the | | ADULT | | PDT | | results section. | + +--------+ + + + | 12 LEAD ECG | Routin | 08/27/2018 | | Results for this | | | e | 9:28 AM | | procedure are in the | | | | PDT | | results section. | + +--------+ + + + | CBC AND AUTO DIFF | Urgent | 08/27/2018 | | Results for this | | | | 8:18 AM | | procedure are in the | | | | PDT | | results section. | + +--------+ + + + | CBC, WITH | Urgent | 08/27/2018 | | Results for this | | DIFFERENTIAL | | 8:18 AM | | procedure are in the | | | | PDT | | results section. | + +--------+ + + + | COMPLETE METABOLIC | Urgent | 08/27/2018 | | Results for this | | SET | | 8:18 AM | | procedure are in the | | (NA,K,CL,CO2,BUN,CRE | | PDT | | results section. | | AT,GLUC,CA,AST,ALT,B | | | | | | VINAY TOTAL,ALK | | | | | | PHOS,ALB,PROT TOTAL) | | | | | + +--------+ + + + | UA DIPSTICK 10 DIP | Urgent | 08/27/2018 | Declining | Results for this | | W/O MICRO | | 1:41 AM | functional status | procedure are in the | | (AUTOMATED), POC | | PDT | | results section. | + +--------+ + + + | NT-PRO BNP | Urgent | 08/27/2018 | | Results for this | | | | 1:31 AM | | procedure are in the | | | | PDT | | results section. | + +--------+ + + + | URINE, MICROSCOPIC | Urgent | 08/27/2018 | | Results for this | | EXAM | | 1:30 AM | | procedure are in the | | | | PDT | | results section. | + +--------+ + + + | URINE SCREEN FOR | Urgent | 08/27/2018 | | Results for this | | CULTURE | | 1:30 AM | | procedure are in the | | | | PDT | | results section. | + +--------+ + + + | URINE CULTURE WORKUP | Routin | 08/27/2018 | | Results for this | | | e | 1:30 AM | | procedure are in the | | | | PDT | | results section. | + +--------+ + + + | CULTURE, URINE [facility] | Routin | 08/27/2018 | | Results for this | | | e | 1:30 AM | | procedure are in the | | | | PDT | | results section. | + +--------+ + + + | X-RAY SHUNT EVAL | Urgent | 08/27/2018 | | Results for this | | SKULL, CHEST AND ABD | | 1:27 AM | | procedure are in the | | 2 VIEWS | | PDT | | results section. | + +--------+ + + + | CT HEAD WO CONTRAST | Urgent | 08/27/2018 | | Results for this | | | | 12:58 AM | | procedure are in the | | | | PDT | | results section. | + +--------+ + + + | US DOPPLER LOWER | Urgent | 08/26/2018 | | Results for this | | EXTREMITY LT | | 9:37 PM | | procedure are in the | | | | PDT | | results section. | + +--------+ + + + | BG-LAC,POC ISTAT | Urgent | 08/26/2018 | | Results for this | | | | 6:25 PM | | procedure are in the | | | | PDT | | results section. | + +--------+ + + + | RAINBOW HOLD TUBE - | Urgent | 08/26/2018 | | | | RED TOP | | 6:09 PM | | | | | | PDT | | | + +--------+ + + + | RAINBOW HOLD TUBE - | Urgent | 08/26/2018 | | | | BLUE TOP | | 6:09 PM | | | | | | PDT | | | + +--------+ + + + | CBC AND AUTO DIFF | Urgent | 08/26/2018 | | Results for this | | | | 6:09 PM | | procedure are in the | | | | PDT | | results section. | + +--------+ + + + | RAINBOW HOLD, CORE | Urgent | 08/26/2018 | | Results for this | | PANEL | | 6:09 PM | | procedure are in the | | | | PDT | | results section. | + +--------+ + + + | CBC, WITH | Urgent | 08/26/2018 | | Results for this | | DIFFERENTIAL | | 6:09 PM | | procedure are in the | | | | PDT | | results section. | + +--------+ + + + | COMPLETE METABOLIC | Urgent | 08/26/2018 | | Results for this | | SET | | 6:09 PM | | procedure are in the | | (NA,K,CL,CO2,BUN,CRE | | PDT | | results section. | | AT,GLUC,CA,AST,ALT,B | | | | | | VINAY TOTAL,ALK | | | | | | PHOS,ALB,PROT TOTAL) | | | | | + +--------+ + + + | BLOOD BANK HOLD TUBE | Urgent | 08/26/2018 | | Results for this | | - DON | | 6:09 PM | | procedure are in the | | | | PDT | | results section. | | T PROCESS | | | | | + +--------+ + + + documented in this encounter Results BASIC METABOLIC SET (NA, K, CL, TCO2, BUN, CR, GLU, CA) (08/29/2018 10:57 AM PDT) + +---------+ + + + | Component | Value | Ref Range | Performed | Pathologist | | | | | At | Signature | + +---------+ + + + | GLUCOSE, | 91 | 70 - 99 mg/dL | [facility] [...] | | | LABORATORY | | | [place] | | | SERVICES, | | | [...] MDRD equation recommended by the National | [facility] | | Kidney Disease Education Program. Estimated [...] | | | paraplegics, or other muscle-wasting diseses | | + + + + + + + + | Performing | Address | City/State/Zipcode | Phone Number | | Organization | | | | + + + + + | [facility] | [address] | [place] [address] | | | SERVICES, CORE | [address] | | | + + + + + 12 LEAD ECG (08/29/2018 10:34 AM PDT) + + + + + + | Component | Value | Ref Range | Performed | Pathologist | | | | | At | Signature | + + + + + + | VENTRICULAR | 78 | bpm | [facility] | | | RATE | | | OF | | | | | | CARDIOLOGY | | + + + + + + | ATRIAL RATE | 78 | ms | [facility] | | | | | | OF | | | | | | CARDIOLOGY | | + + + + + + | P-R | 171 | ms | [facility] | | | INTERVAL | | | OF | | | | | | CARDIOLOGY | | + + + + + + | P AXIS | -2 | deg | [facility] | | | | | | OF | | | | | | CARDIOLOGY | | + + + + + + | QRS | 103 | ms | [facility] | | | DURATION | | | OF | | | | | | CARDIOLOGY | | + + + + + + | QT | 393 | ms | [facility] | | | | | | OF | | | | | | CARDIOLOGY | | + + + + + + | ISABELA-TESFAYE | 447 | ms | [facility] | | | | | | OF | | | | | | CARDIOLOGY | | + + + + + + | R AXIS | -6 | deg | [facility] | | | | | | OF | | | | | | CARDIOLOGY | | + + + + + + | T AXIS | 33 | deg | [facility] | | | | | | OF | | | | | | CARDIOLOGY | | + + + + + + | ECG | Sinus rhythm- NORMAL ECG | | [facility] | | | IMPRESSION | - | | OF | | | | | | CARDIOLOGY | | + + + + + + | ECG | Electronically signed | | [facility] | | | IMPRESSION | by: NOAM WEBB | | OF | | | | 08-29-2018 22:32:34 | | CARDIOLOGY | | + + [...] + + + + + | [facility] | [address] | [place], [place] | | | CARDIOLOGY | [address] | [address] | | + + + + + COMPLETE METABOLIC SET (NA,K,CL,CO2,BUN,CREAT,GLUC,CA,AST,ALT,BILI TOTAL,ALK PHOS,ALB,PROT TOTAL) (08/29/2018 6:08 AM PDT) + +---------+ + + + | Component | Value | Ref Range | Performed | Pathologist | | | | | At | Signature | + +---------+ + + + | GLUCOSE, | 93 | 70 - 99 mg/dL | [facility] | | | PLASMA | | | LABORATORY | | | (LAB) | | | SERVICES, | | | | | | CORE | | + +---------+ + + + | BUN, PLASMA | 15 | 6 - 20 mg/dL | [facility] | | | (LAB) | | | LABORATORY | | | | | | SERVICES, | | | | | | CORE | | + +---------+ + + + | CREATININE | 0.78 | 0.60 - 1.10 | [facility] | | | PLASMA | | mg/dL | LABORATORY | | | (LAB) | | | SERVICES, | | | | | | CORE | | + +---------+ + + + | EGFR | >60 | >60 mL/min | [facility] | | | - | | | LABORATORY | | | [place] | | | SERVICES, | | | [...] +---------+ + + + | POTASSIUM, | 5.6 (H) | 3.4 - 5.0 | [facility] | | | PLASMA | | mmol/L | LABORATORY | | | (LAB) | | | SERVICES, | | | | | | CORE | | + +---------+ + + + | CHLORIDE, | 113 (H) | 97 - 108 mmol/L | [...] +---------+ + + + | CALCIUM, | 9.3 | 8.6 - 10.2 | [...] +---------+ + + + | BILIRUBIN | 0.5 | 0.3 - 1.2 mg/dL | [facility] | | | TOTAL | | | LABORATORY | | | | | | SERVICES, | | | | | | CORE | | + +---------+ + + + | TOTAL | 7.6 | 6.4 - 8.2 g/dL | [facility] [...] + + + | ALK PHOS | 125 (H) | 42 - 98 U/L | [facility] | | | | | | LABORATORY | | | | | | SERVICES, | | | | | | CORE | | + +---------+ + + + | AST(SGOT) | 41 | <=41 U/L | [facility] | | | | | | LABORATORY | | | | | | SERVICES, | | | | | | CORE | | + +---------+ + + + | ALT (SGPT) | 46 | <=60 U/L | [facility] | | [...] MDRD equation recommended by the National | [facility] | | Kidney Disease Education Program. Estimated GFR Interpretive | LABORATORY | | Information: <60 mL/min/1.73 sq m Chronic Kidney | SERVICES, [facility] | | Disease <15 mL/min/1.73 sq m [...] | | | paraplegics, or other muscle-wasting diseses | | + + + + + + + + | Performing | Address | City/State/Zipcode | Phone Number | | Organization | | | | + + + + + | [facility] | [address] | [place] [address] | | | JUANA, RYNE | [address] | | | + + + + + FREE T4 (08/28/2018 7:42 AM PDT) + +-------+ + + + | Component | Value | Ref Range | Performed | Pathologist | | | | | At | Signature | + +-------+ + + + | FREE T4 | 1.2 | 0.6 - 1.2 ng/dL | [facility] | | | | | [...] + | [facility] | [address] | [place] [address] | | | SERVICES, CORE | [address] | | | + + + + + TSH W/REFLEX TO FREE T4(IF ABNORMAL) (08/28/2018 7:42 AM PDT) + + + + + + | Component | Value | Ref Range | Performed | Pathologist | | | | | At | Signature | + + + + + + | TSH | 8.11 (H) | 0.50 - 5.07 | [facility] | | | | | mIU/L | LABORATORY | | | | | | JUANA, | | | | | | CORE | | + + + + + + + + | Specimen | + + | Blood - Blood | | (substance) | + + + + + | Narrative | Performed At | + + + | TSH reference ranges are influenced by a variety of environmental | [facility] | | influences, age, gender and ethnicity. The supplied reference limits | LABORATORY | | are based on published values utilizing a similar TSH assay, and | SERVICES, CORE | | should be interpreted with caution. | | + + + + + + + + | Performing | Address | City/State/Zipcode | Phone Number | | Organization | | | | + + + + + | [facility] | [address] | [place] [address] | | | SERVICES, CORE | [address] | | | + + + + + US LIVER (08/27/2018 7:37 PM PDT) + + | Specimen | + + | | + + + + + | Narrative | Performed At | + + + | EXAM: US Abdomen Limited HISTORY: B/l lower extremity edema of | [facility] | | unclear cause, please assess for cirrhosis vs venous obstruction | RADIOLOGY VOICE | | COMPARISON: None available TECHNIQUE: Limited abdominal ultrasound | RECOGNITION 2 | | performed of the right upper quadrant. FINDINGS: Liver: | | | Parenchyma is hyperechoic compared to the kidney parenchyma. No | | | focal lesion. Biliary: The gallbladder is normal in size and | | | contains multiple hyperechoic foci with posterior shadowing, most | | | likely representing gallstones; mobility cannot be assessed due to | | | patient body habitus. Sonographic Lira sign is negative. No biliary | | | dilatation. There is no pericholecystic fluid or gallbladder wall | | | thickening. The common duct measures 2 mm in diameter. Other: No | | | free fluid in the right upper quadrant. IMPRESSION: Hepatic | | | steatosis. Cholelithiasis without evidence of cholecystitis. | | | Availability of results was communicated to the ED tip banding machine operator on | | | 08/27/2018 7:43 PM by Nabil Mason MD. I have personally reviewed the | | | images and, if necessary, edited the report. I agree with the report | | | as now presented. Final signature: Domenica Esteves MD 08/27/2018 | | | 7:45 PM Preliminary: Nabil Mason MD Dictation initiated: Nabil Mason MD 08/27/2018 7:40 PM | | + + + + + | Procedure Note | + + | Service Account, Radiant Res In Interface - 08/27/2018 7:46 PM PDT EXAM: US Abdomen | | Limited HISTORY: B/l lower extremity edema of unclear cause, please assess for | | cirrhosis vs venous obstruction COMPARISON: None available TECHNIQUE: Limited abdominal | | ultrasound performed of the right upper quadrant. FINDINGS: Liver: Parenchyma is | | hyperechoic compared to the kidney parenchyma. No focal lesion. Biliary: The | | gallbladder is normal in size and contains multiple hyperechoic foci with posterior | | shadowing, most likely representing gallstones; mobility cannot be assessed due to | | patient body habitus. Sonographic Lira sign is negative. No biliary dilatation. There | | is no pericholecystic fluid or gallbladder wall thickening. The common duct measures 2 | | mm in diameter. Other: No free fluid in the right upper quadrant. IMPRESSION: Hepatic | | steatosis. Cholelithiasis without evidence of cholecystitis. Availability of results was | | communicated to the ED tip banding machine operator on 08/27/2018 7:43 PM by Nabil Mason MD. I have | | personally reviewed the images and, if necessary, edited the report. I agree with the | | report as now presented. Final signature: Domenica Esteves MD 08/27/2018 7:45 PM | | Preliminary: Nabil Mason MD Dictation initiated: Nabil Mason MD 08/27/2018 7:40 PM | |Other: No free fluid in the right upper quadrant. | | | |IMPRESSION: | | | |Hepatic steatosis. | | | |Cholelithiasis without evidence of cholecystitis. | | | |Availability of results was communicated to the ED tip banding machine operator on 08/27/2018 7:43 PM by Nabil Apple i, MD. | | | |I have personally reviewed the images and, if necessary, edited the report. I agree with e report as now presented. | | | |Final signature: Domenica Esteves MD 08/27/2018 7:45 PM | |Preliminary: Nabil Mason MD | |Dictation initiated: Nabil Mason MD 08/27/2018 7:40 PM | + + + +---------+ + + | Performing | Address | City/State/Zipcode | Phone Number | | Organization | | | | + +---------+ + + | [facility] | | | | | VOICE RECOGNITION 2 | | | | + +---------+ + + TRANSTHORACIC ECHOCARDIOGRAM, ADULT (08/27/2018 10:24 AM PDT) + + + + + + | Component | Value | Ref Range | Performed | Pathologist | | | | | At | Signature | + + + + + + | AOV VMN | 3.0 | | [facility] | | | (AORTIC | | | OF | | | VALVE) | | | CARDIOLOGY | | + + + + + + | BIPLANE, EF | 61 | | [facility] | | | | | | OF | | | | | | CARDIOLOGY | | + + + + + + | EJECTION | 60 to 65 | | [facility] | | | FRACTION | | | OF | | | | | | CARDIOLOGY | | + + + + + + | LA | 3.0 | | [facility] | | | DIMENSION | | | OF | | | | | | CARDIOLOGY | | + + + + + + | LVIDD | 4.6 | | [facility] | | | | | | OF | | | | | | CARDIOLOGY | | + + + + + + | MV A VMAX | 0.7 | | [facility] | | | | | | OF | | | | | | CARDIOLOGY | | + + + + + + | MV E? | 13.0 | | [facility] | | | | | | OF | | | | | | CARDIOLOGY | | + + + + + + | MV E VMAX | 0.9 | | [facility] | | | | | | OF | | | | | | CARDIOLOGY | | + + + + + + | MV E/E' | 0.1 | | [facility] | | | (MITRAL | | | OF | | | VALVE) | | | CARDIOLOGY | | + + + + + + | MITRAL | 9.9 | | [facility] | | | ANNULUS | | | OF | | | MEDIAL E/E" | | | CARDIOLOGY | | | (TISSUE | | | | | | DOPPLER) | | | | | + + + + + + | RV TAPSE | 1.9 | | [facility] | | | | | | OF | | | | | | CARDIOLOGY | | + + + + + + | RV TDI S? | 10.0 | | [facility] | | | | | | OF | | | | | | CARDIOLOGY | | + + + + + + | EJECTION | 62.5 | % | [facility] | | | FRACTION | | | OF | | | RANGE MEAN | | | CARDIOLOGY | | | VALUE | | | | | + + + + + + + + | Specimen | + + | | + + + ----+ + | Narrative | Performed At | + ----+ + | [facility] | [facility] | | [facility] [address] | CARDIOLOGY | | [place], [place] [address] Ph: | | | Pt Name: HENRIQUE CASAS | | | Study Date/Time 08/27/2018 / 10:24:15 AMMRN: [id number] | | | Most recent prior:Acc #: [id number] No. | | | previous echos: 0DOB: 1970 48 years Heart Rate: | | | 79 bpmHeight: 68.0 in Blood Pressure: | | | 118/84 mm/HgWeight: 250.0 lb Gender: | | | FBSA: 2.25 m | | | Order ID: [id number] Study | | | Location: EDSonographer: Rose Tyler [facility] UNITReferring Provider: Daniel Baltazar | | | Bernard KingModalities Performed: 2D, Color flow, Spectral Doppler | | | and Definity contrast.Study Quality: This was a technically difficult | | | study, but image quality improved with echo contrast.Imaging | | | Limitations: Patient size and body habitus. 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 Patient | | | history has been obtained from the EHR Transthoracic Echocardiographic | | | Report | | | + +Final | | | Impressions: | | | | | | | | | 1. Study quality | | | limited by poor acoustic windows. 2. The left | | | ventricular size is normal. 3. The LV | | | function is normal. 4. | | | Right ventricular size, thickness and function are normal. | | | | | | 5. No significant valvular abnormalities seen. | | | 6. There are no prior exams available for comparison. | | | | | | | | | + + | | | Description of Findings: Cardiac Rhythm: Normal sinus rhythm.Left | | | Ventricle: The left ventricular size is normal. Visually estimated | | | left ventricular ejection fraction is 60 - 65%. There is no left | | | ventricular hypertrophy. The LV diastolic filling pattern is normal. | | | The ejection fraction is 60.5 % as measured by Chester's biplane | | | method. The LV function is normal. Due to poor endocardial definition, | | | ultrasound contrast was used (Definity).Atria: Left atrial size is | | | normal. Normal right atrium.Right Ventricle: Right ventricular size, | | | thickness and function are normal. TAPSE measures 1.9cm. The RV TDI s' | | | velocity is 10.0cm/sec. Unable to calculate RVSP due to the nature of | | | the TR Jet.Aortic Valve: The aortic valve is indeterminate in | | | morphology. No indication of aortic valve regurgitation. No aortic | | | stenosis.Mitral Valve: The mitral valve is structurally normal. No | | | evidence of mitral valve stenosis. No evidence of mitral valve | | | regurgitation.Tricuspid Valve: The tricuspid valve is structurally | | | normal. Trace tricuspid regurgitation.Pulmonic Valve: The pulmonic | | | valve is not well visualized. No indication of pulmonary valve | | | regurgitation.Aorta: Visualized portions of the ascending aorta and | | | aortic root appear normal.Venous: Inferior vena cava is normal with | | | normal inspiratory collapse.Pericardium: No pericardial effusion is | | | seen. Additional Findings: There are no prior exams.2D Measurements | | | Doppler Measurements 2D NL | | | Values Aortic MitralLVID(d) 4.57 (3.5-5.7cm) | | | Max Joshua 1.27 Peak E 0.89 cm | | | m/s m/sLVID(s) 3.22 | | | Mean grad 3.0 Peak A 0.70 | | | cm mmHg | | | m/sIVS(d) 0.98 (0.6-1.1cm) LVOT Joshua 0.99 E/A Ratio | | | 1.26 cm | | | m/sLVPW(d) 0.77 (0.6-1.1cm) LVOT VTI 0.184 TDI (E/e') 0.1 | | | cm mLA A/Ps 2D | | | 3.00 (2.7-3.9cm) LVOT Diam 2.10 MV mn gd cm | | | cmLA vol A/L 20.5 (16-34) | | | LVOT SV 28.3 MR EROindex ml/m | | | indexed ml/m | | | LA vol MOD 43.4 (40-73ml) Tricuspid PulmonicBP | | | ml TR Vmax PV Vmax | | | 1.0LA vol MOD 19.3 (16-34) | | | m/sindex ml/m | | | RA Press 5 RVOT VTI 17.3LVEDV | | | 45.12 mmHg | | | cmindex ml/m | | | Biplane EF 60.5 % Aorta: | | | Index: Ao Sinus | | | 3.00 (2.1-3.5cm) 13.3 | | | cm mm/m | | | Asc Ao 3.10 | | | 13.8 (prox) | | | cm mm/m | | | Evaluation of chamber size and geometry is accomplished through the | | | incorporation of linear, volumetric, and indexed values Report | | | electronically signed by: [id number] Stanton Gary MD (08/27/2018, | | | 12:10:12 PM)Fellow(s) participating in diagnosis: Gil Mitchell; | | | Final | | |LVEDV 45.12 mmHg cm | | |index ml/m | | |Biplane EF 60.5 % Aorta: Index: | | | Ao Sinus 3.00 (2.1-3.5cm) 13.3 | | | cm mm/m | | | Asc Ao 3.10 13.8 | | | (prox) cm mm/m | | |Evaluation of chamber size and geometry is accomplished through the incorporation of | | |linear, volumetric, and indexed values | | | | | |Report electronically signed by: [id number] Stanton Gary MD (08/27/2018, 12:10:12 PM) | | |Fellow(s) participating in diagnosis: Gil Mitchell; | | | | | | | | | | | | Final | | + ----+ + + + | Procedure Note | + + | Interface, Cardiology Results - 08/27/2018 12:10 PM [facility] | | [facility] [address] [place] [address] | | [place], [place] [address] Pt Name: HENRIQUE OSPINA | | VAISHALI Study Date/Time 08/27/2018 / 10:24:15 AMMRN: [id number] Most | | recent prior:Acc #: [id number] No. previous echos: 0DOB: 1970 48 years | | Heart Rate: 79 bpmHeight: 68.0 in Blood Pressure: 118/84 | | mm/HgWeight: 250.0 lb Gender: FBSA: 2.25 m | | Order ID: [id number] Study Location: EDSonographer: Rose Jordanwilemrsabino | | RDCSReferring Provider: Daniel Floresalities Performed: 2D, Color flow, | | Spectral Doppler and Definity contrast.Study Quality: This was a technically difficult | | study, but image quality improved with echo contrast.Imaging Limitations: Patient size | | and body habitus. and there is prominent lung artifact seen.Exam Indication: | | EdemaHistory: 48-year-old female with history of congenital toxoplasmosis complicated by | | aqueductal stenosis causing hydrocephalus, for which she has STUNNER shunt, cerebral palsy, | | seizure disorder, who presents with 3 weeks of progressive subacute weakness now with | | inability to stand for transfers. Patient history has been obtained from the EHR | | Transthoracic Echocardiographic | | Report+ +Final Impressions: | | | | 1. Study | | quality limited by poor acoustic windows. 2. The left ventricular size is | | normal. 3. The LV function is normal. | | 4. Right ventricular size, thickness and function are normal. | | 5. No significant valvular abnormalities seen. | | 6. There are no prior exams available for comparison. | | | | + + Description of Findings: | | Cardiac Rhythm: Normal sinus rhythm.Left Ventricle: The left ventricular size is | | normal. Visually estimated left ventricular ejection fraction is 60 - 65%. There is no | | left ventricular hypertrophy. The LV diastolic filling pattern is normal. The ejection | | fraction is 60.5 % as measured by Chester's biplane method. The LV function is normal. | | Due to poor endocardial definition, ultrasound contrast was used (Definity).Atria: Left | | atrial size is normal. Normal right atrium.Right Ventricle: Right ventricular size, | | thickness and function are normal. TAPSE measures 1.9cm. The RV TDI s' velocity is | | 10.0cm/sec. Unable to calculate RVSP due to the nature of the TR Jet.Aortic Valve: The | | aortic valve is indeterminate in morphology. No indication of aortic valve | | regurgitation. No aortic stenosis.Mitral Valve: The mitral valve is structurally normal. | | No evidence of mitral valve stenosis. No evidence of mitral valve | | regurgitation.Tricuspid Valve: The tricuspid valve is structurally normal. Trace | | tricuspid regurgitation.Pulmonic Valve: The pulmonic valve is not well visualized. No | | indication of pulmonary valve regurgitation.Aorta: Visualized portions of the ascending | | aorta and aortic root appear normal.Venous: Inferior vena cava is normal with normal | | inspiratory collapse.Pericardium: No pericardial effusion is seen. Additional Findings: | | There are no prior exams.2D Measurements Doppler Measurements | | 2D NL Values Aortic MitralLVID(d) 4.57 (3.5-5.7cm) Max Joshua 1.27 | | Peak E 0.89 cm m/s m/sLVID(s) | | 3.22 Mean grad 3.0 Peak A 0.70 cm | | mmHg m/sIVS(d) 0.98 (0.6-1.1cm) LVOT Joshua 0.99 E/A Ratio 1.26 | | cm m/sLVPW(d) 0.77 (0.6-1.1cm) LVOT VTI 0.184 | | TDI (E/e') 0.1 cm mLA A/Ps 2D 3.00 (2.7-3.9cm) | | LVOT Diam 2.10 MV mn gd cm cmLA vol A/L 20.5 | | (16-34) LVOT SV 28.3 MR EROindex ml/m | | indexed ml/m | | LA vol MOD 43.4 (40-73ml) Tricuspid PulmonicBP ml TR | | Vmax PV Vmax 1.0LA vol MOD 19.3 (16-34) | | m/sindex ml/m | | RA Press 5 RVOT VTI 17.3LVEDV 45.12 | | mmHg cmindex ml/m | | Biplane EF 60.5 % Aorta: Index: | | Ao Sinus 3.00 (2.1-3.5cm) 13.3 cm | | mm/m | | Asc Ao 3.10 13.8 | | (prox) cm mm/m | | Evaluation of chamber size and geometry is accomplished through the incorporation of | | linear, volumetric, and indexed values Report electronically signed by: [id number] Hind | | Cookie WOODS (08/27/2018, 12:10:12 PM)Fellow(s) participating in diagnosis: Gil | | Paula; Final | | valve regurgitation. | |Aorta: Visualized portions of the ascending aorta and aortic root appear normal. | |Venous: Inferior vena cava is normal with normal inspiratory collapse. | |Pericardium: No pericardial effusion is seen. | | | |Additional Findings: There are no prior exams. | |2D Measurements Doppler Measurements | | | | 2D NL Values Aortic Mitral | |LVID(d) 4.57 (3.5-5.7cm) Max Joshua 1.27 Peak E 0.89 | | cm m/s m/s | |LVID(s) 3.22 Mean grad 3.0 Peak A 0.70 | | cm mmHg m/s | |IVS(d) 0.98 (0.6-1.1cm) LVOT Joshua 0.99 E/A Ratio 1.26 | | cm m/s | |LVPW(d) 0.77 (0.6-1.1cm) LVOT VTI 0.184 TDI (E/e') 0.1 | | cm m | |LA A/Ps 2D 3.00 (2.7-3.9cm) LVOT Diam 2.10 MV mn gd | | cm cm | |LA vol A/L 20.5 (16-34) LVOT SV 28.3 MR ERO | |index ml/m indexed ml/m | |LA vol MOD 43.4 (40-73ml) Tricuspid Pulmonic | |BP ml TR Vmax PV Vmax 1.0 | |LA vol MOD 19.3 (16-34) m/s | |index ml/m RA Press 5 RVOT VTI 17.3 | |LVEDV 45.12 mmHg cm | |index ml/m | |Biplane EF 60.5 % Aorta: Index: | | Ao Sinus 3.00 (2.1-3.5cm) 13.3 | | cm mm/m | | Asc Ao 3.10 13.8 | | (prox) cm mm/m | |Evaluation of chamber size and geometry is accomplished through the incorporation of | |linear, volumetric, and indexed values | | | |Report electronically signed by: [id number] Stanton Gary MD (08/27/2018, 12:10:12 PM) | |Fellow(s) participating in diagnosis: Gil Mitchell; | | | | | | | | Final | + + + + + + + | Performing | Address | City/State/Zipcode | Phone Number | | Organization | | | | + + + + + | [facility] | [address] | [place], [place] | | | CARDIOLOGY | [address] | [address] | | + + + + + 12 LEAD ECG (08/27/2018 9:28 AM PDT) + + + + + + | Component | Value | Ref Range | Performed | Pathologist | | | | | At | Signature | + + + + + + | VENTRICULAR | 70 | bpm | [facility] | | | RATE | | | OF | | | | | | CARDIOLOGY | | + + + + + + | ATRIAL RATE | 70 | ms | [facility] | | | | | | OF | | | | | | CARDIOLOGY | | + + + + + + | P-R | 207 | ms | [facility] | | | INTERVAL | | | OF | | | | | | CARDIOLOGY | | + + + + + + | P AXIS | 14 | deg | [facility] | | | | | | OF | | | | | | CARDIOLOGY | | + + + + + + | QRS | 96 | ms | [facility] | | | DURATION | | | OF | | | | | | CARDIOLOGY | | + + + + + + | QT | 416 | ms | [facility] | | | | | | OF | | | | | | CARDIOLOGY | | + + + + + + | QTC-BAZETT | 450 | ms | [facility] | | | | | | OF | | | | | | CARDIOLOGY | | + + + + + + | R AXIS | 20 | deg | [facility] | | | | | | OF | | | | | | CARDIOLOGY | | + + + + + + | T AXIS | 47 | deg | [facility] | | | | | | OF | | | | | | CARDIOLOGY | | + + + + + + | ECG | Sinus rhythm | | [facility] | | | IMPRESSION | | | OF | | | | | | CARDIOLOGY | | + + + + + + | ECG | Borderline prolonged DC | | [facility] | | | IMPRESSION | interval- BORDERLINE ECG | | OF | | | | - | | CARDIOLOGY | | + + + + + + | ECG | Electronically signed | | [facility] | | | IMPRESSION | by: NOAM WEBB | | OF | | | | 08-29-2018 22:32:36 | | CARDIOLOGY | | + + [...] + + + + + | [facility] | [phone] | [place], [place] | | | CARDIOLOGY | [address] | [address] | | + + + + + CBC AND AUTO DIFF (08/27/2018 8:18 AM PDT) + + + + + + | Component | Value | Ref Range | Performed | Pathologist | | | | | At | Signature | + + + + + + | WHITE CELL | 10.41 | 3.50 - 10.80 | [facility] | | | COUNT | | K/cu mm | LABORATORY | | | | | | SERVICES, | | | | | | CORE | | + + + + + + | RED CELL | 4.62 | 4.00 - 5.20 | [facility] | [...] + + + + | HEMATOCRIT | 43.5 | 36.0 - 46.0 % | [facility] | | | | | | LABORATORY | | | | | | SERVICES, | | | | | | CORE | | + + + + + + | MCV | 94.2 | 80.0 - 100.0 fL | [facility] | | | | | | LABORATORY | | | | | | SERVICES, | | | | | | CORE | | + + + + + + | MCHC | 33.6 | 32.0 - 36.0 | [facility] | [...] + + + + | NEUTROPHIL | 67.4 | 50.0 - 70.0 % | [facility] | | | % | | | LABORATORY | | | | | | SERVICES, | | | | | | CORE | | + + + + + + | LYMPHOCYTE | 22.5 | 18.0 - 42.0 % | [facility] | | | % | | | LABORATORY | | | | | | SERVICES, | | | | | | CORE | | + + + + + + | MONOCYTE % | 8.1 | 3.5 - 9.0 % | [facility] | | | | | | LABORATORY | | | | | | SERVICES, | | | | | | CORE | | + + + + + + | EOS % | 1.2 | 1.0 - 3.0 % | [facility] [...] + + + | IG% | 0.3Comment: Increased | 0.0 - 1.0 % | [...] + + + + | NEUTROPHIL | 7.03 | 1.80 - 7.70 | [facility] | | | # | | K/cu mm | LABORATORY | | | | | | SERVICES, | | | | | | CORE | | + + + + + + | LYMPHOCYTE | 2.34 | 1.00 - 4.80 | [facility] | | | # | | K/cu mm | LABORATORY | | | | | | SERVICES, | | | | | | CORE | | + + + + + + | MONOCYTE # | 0.84 | 0.10 - 0.90 | [facility] | | | | | K/cu mm | LABORATORY | | | | | | SERVICES, | | | | | | CORE | | + + + + + + | EOS # | 0.12 | 0.00 - 0.50 | [facility] | | | | | K/cu mm | LABORATORY | | | | | | SERVICES, | | | | | | CORE | | + + + + + + | BASO # | 0.05 | 0.00 - 0.10 | [facility] | | | | | K/cu mm | LABORATORY | | | | | | SERVICES, | | | | | | CORE | | + + + + + + | IG# | 0.03 | 0.00 - 0.10 | [...] Performed At | + + + | Increased immature granulocytes (IG) define a left shift. Immature | [facility] | | granulocytes (IG) are an automated count of metamyelocytes, myelocytes | LABORATORY | | and promyelocytes. Bands are not included in the IG count. Bands are | SERVICES, CORE | | included in the neutrophil count. | | + + + + + + + + | Performing | Address | City/State/Zipcode | Phone Number | | Organization | | | | + + + + + | [facility] | [address] | [place] [address] | | | SERVICES, CORE | [address] | | | + + + + + COMPLETE METABOLIC SET (NA,K,CL,CO2,BUN,CREAT,GLUC,CA,AST,ALT,BILI TOTAL,ALK PHOS,ALB,PROT TOTAL) (08/27/2018 8:18 AM PDT) + + + + + + | Component | Value | Ref Range | Performed | Pathologist | | | | | At | Signature | + + + + + + | GLUCOSE, | 83 | 70 - 99 mg/dL | [facility] [...] | | | LABORATORY | | | [place] | | | SERVICES, | | | [...] + + + + | CHLORIDE, | 111 [...] + + + + | CALCIUM, | 8.9 [...] + + + + | BILIRUBIN | 0.6 | 0.3 - 1.2 mg/dL | [facility] | | | TOTAL | | | LABORATORY | | | | | | SERVICES, | | | | | | CORE | | + + + + + + | TOTAL | 7.2 | 6.4 - 8.2 g/dL | [facility] [...] + + + + + + | ALK PHOS | 120 (H) | 42 - 98 U/L | [facility] | | | | | | LABORATORY | | | | | | SERVICES, | | | | | | CORE | | + + + + + + | AST(SGOT) | 26 | <=41 U/L | [facility] | | | | | | LABORATORY | | | | | | SERVICES, | | | | | | CORE | | + + + + + + | ALT (SGPT) | 38 | <=60 U/L | [facility] | | [...] + + + + + + | BILI T CMNT | No Hemo | | [facility] | | | | | | LABORATORY | | | | | | SERVICES, | | | | | | CORE | | + + + + + + | AST CMNT | [...] MDRD equation recommended by the National | [facility] | | Kidney Disease Education Program. Estimated [...] | | | paraplegics, or other muscle-wasting diseses | | + + + + + + + + | Performing | Address | City/State/Zipcode | Phone Number | | Organization | | | | + + + + + | [facility] | [address] | [place] [address] | | | SERVICES, CORE | [address] | | | + + + + + UA 10 DIP, POC (08/27/2018 1:41 AM PDT) + + + + + + | Component | Value | Ref Range | Performed | Pathologist | | | | | At | Signature | + + + + + + | COLOR (UA | Yellow | | [facility] - | | | DIP), POC | | | [facility] | | | | | | BOB POINT | | | | | | OF CARE | | | | | | TESTS | | + + + + + + | APPEARANCE | Clear | | [facility] - | | | (UA DIP), | | | [facility] | | | POC | | | BOB POINT | | | | | | OF CARE | | | | | | TESTS | | + + + + + + | LEUKOCYTES | Moderate (A) | Negative | [facility] - | | | (UA DIP), | | | [facility] | | | POC | | | [facility] | | | | | | OF CARE | | | | | | TESTS | | + + + + + + | NITRITES | Negative | Negative | [facility] - | | | (UA DIP), | | | [facility] | | | POC | | | [facility] | | | | | | OF CARE | | | | | | TESTS | | + + + + + + | UROBILINOGE | 0.2 | 0.2 - 1.0 | [facility] - | | | N (UA DIP), | | E.U./dL | [facility] | | | POC | | | [facility] | | | | | | OF CARE | | | | | | TESTS | | + + + + + + | PROTEIN (UA | Negative | Neg - Trace | [facility] - | | | DIP), POC | | mg/dL | [facility] | | | | | | [place], POINT | | | | | | OF CARE | | | | | | TESTS | | + + + + + + | PH (UA | 7.0 | 5.0 - 8.0 | [facility] - | | | DIP), POC | | | [facility] | | | | | | BOB, POINT | | | | | | OF CARE | | | | | | TESTS | | + + + + + + | BLOOD (UA | Trace-lysed (A) | Negative | [facility] - | | | DIP), POC | | | [facility] | | | | | | BOB, POINT | | | | | | OF CARE | | | | | | TESTS | | + + + + + + | SPECIFIC | 1.015 | 1.005 - 1.030 | [facility] - | | | GRAVITY (UA | | | [facility] | | | DIP), POC | | | BOB, POINT | | | | | | OF CARE | | | | | | TESTS | | + + + + + + | KETONES (UA | 15.0 (A) | Negative mg/dL | [facility] - | | | DIP), POC | | | [facility] | | | | | | [place], POINT | | | | | | OF CARE | | | | | | TESTS | | + + + + + + | BILIRUBIN | Negative | Negative | [facility] - | | | (UA DIP), | | | [facility] | | | POC | | | [place], POINT | | | | | | OF CARE | | | | | | TESTS | | + + + + + + | GLUCOSE (UA | Negative | Negative - | [facility] - | | | DIP), POC | | Trace mg/dL | [facility] | | | | | | H[place], POINT | | | | | | OF CARE | | | | | | TESTS | | + + + + + + + + | Specimen | + + | Urine - Urine | | (substance) | + + + + + + + | Performing | Address | City/State/Zipcode | Phone Number | | Organization | | | | + + + + + | [facility] | [address] | [place], [place] | | | BOB POINT OF CARE | [address] | [address] | | | TESTS | | | | + + + + + NT-PRO BNP (08/27/2018 1:31 AM PDT) + +-------+ + + + | Component | Value | Ref Range | Performed | Pathologist | | | | | At | Signature | + +-------+ + + + | NT-PRO BNP | 13 | <125 pg/mL | [facility] | | | | | [...] | + + + + + | [facility] | [address] | [place] [address] | | | SERVICES, CORE | [address] | | | + + + + + URINE, MICROSCOPIC EXAM (08/27/2018 1:30 AM PDT) + +---------+ + + + | Component | Value | Ref Range | Performed | Pathologist | | | | | At | Signature | + +---------+ + + + | RED CELLS | 2 | 0 - 3 /hpf | [facility] | | | | | | LABORATORY | | | | | | SERVICES, | | | | | | CORE | | + +---------+ + + + | WHITE CELLS | 65 (H) | 0 - 5 /hpf | [...] + + + | SQUAMOUS | Few | None, Few /hpf | [facility] | | | EPITHELIAL | | | LABORATORY | | | | | | SERVICES, | | | | | | CORE | | + +---------+ + + + | MUCOUS | None | None, Few /hpf | [facility] | | | | | | LABORATORY | | | | | | SERVICES, | | | | | | CORE | | + +---------+ + + + | NON-SQUAMOU | Few (A) | None /hpf | [...] + | TRIPLE P04 | None | None, Few /hpf | [facility] | | | CRYSTALS | | | LABORATORY | | | | | | SERVICES, | | | | | | CORE | | + +---------+ + + + | CALCIUM | None | None, Few /hpf | [facility] | | | OXALATE | | | LABORATORY | | | ITA | | | SERVICES, | | | | | | CORE | | + +---------+ + + + | URIC ACID | None | None, Few /hpf | [facility] | | | [facility] | | | LABORATORY | | | | | | SERVICES, | | | | | | CORE | | + +---------+ + + + | AMORPHOUS | None | None, Few /hpf | [facility] | | | CRYSTALS | | | LABORATORY | | | | | | SERVICES, | | | | | | CORE | | + +---------+ + + + + + | Specimen | + + | Urine - Catheter - | | straight | + + + + + + + | Performing | Address | City/State/Zipcode | Phone Number | | Organization | | | | + + + + + | [facility] | [address] | [place] [address] | | | SERVICES, CORE | [address] | | | + + + + + URINE SCREEN FOR CULTURE (08/27/2018 1:30 AM PDT) + + + + + + | Component | Value | Ref Range | Performed | Pathologist | | | | | At | Signature | + + + + + + | URINE | Sent for Culture (A) | Negative | [facility] | | | SCREEN FOR | | | LABORATORY | | | CULTURE | | | SERVICES, | | | | | | CORE | | + + + + + + + + | Specimen | + + | Urine - Catheter - | | straight | + + + + + | Narrative | Performed At | + + + | Culture Screen Positive, specimen sent for culture. | [facility] | | | LABORATORY | | | [address] | + + + + + + + + | Performing | Address | City/State/Zipcode | Phone Number | | Organization | | | | + + + + + | [facility] | [address] | [place] [address] | | | [address] | [address] | | | + + + + + URINE CULTURE WORKUP (08/27/2018 1:30 AM PDT) + + + + + + | Component | Value | Ref Range | Performed | Pathologist | | | | | At | Signature | + + + + + + | ORGANISM | Escherichia coli (A) | | [facility] | | | | | | [facility] | | | | | | [place] | | + + + + + + + + | Specimen | + + | Urine - Catheter - | | straight | + + + + + | Narrative | Performed At | + + + | Culture Report: 10,000 cfu/ml Escherichia coli Upon further | [facility] | | incubation multiple organisms are present indicating probable | [facility] | | contamination or colonization not related to infection. Further | [place] | | work-up of this culture may result in clinically misleading | | | information. Recollection is suggested if clinically indicated. | | + + + + + + + + | Performing | Address | City/State/Zipcode | Phone Number | | Organization | | | | + + + + + | [facility] | [id number] | [place] [address] | | | [facility] | | | | + + + + + CULTURE, URINE [facility] (08/27/2018 1:30 AM PDT) + + + + + [...] Specimen | + + | Urine - Catheter - | | straight | + + + + + + + | Performing | Address | City/State/Zipcode | Phone Number | | Organization | | | | + + + + + | [facility] | [address] | [place] [address] | | | SERVICES, CORE | [address] | | | + + + + + X-RAY SHUNT EVAL SKULL, CHEST AND ABD 2 VIEWS (08/27/2018 1:27 AM PDT) + + | Specimen | + + | | + + + + + | Narrative | Performed At | + + + | EXAM: Radiographic shunt series (AP and lateral radiographs of the | [facility] | | skull, AP and lateral radiographs of the chest, and AP and lateral | RADIOLOGY VOICE | | radiographs of the abdomen) HISTORY: Eval shunt COMPARISON: | RECOGNITION 2 | | Same day CT head and shunt eval 07/02/2016. FINDINGS: SKULL: A | | | right-sided ventriculoperitoneal shunt is present. Radiopaque | | | portions of the shunt tubing appear continuous in the head and neck. | | | CHEST: The shunt continues through the anterior chest wall without | | | evident discontinuity. ABDOMEN: The shunt terminates in the | | | pelvis. There is adequate shunt length in the peritoneal cavity. | | | No shunt discontinuity or kinking is seen. No abnormal mass effect | | | is identified in the abdomen to suggest presence of a pseudocyst. | | | IMPRESSION: No shunt discontinuity identified. I have | | | personally reviewed the images and, if necessary, edited the report. I | | | agree with the report as now presented. Final signature: Sohail La | | | MD Uvaldo 08/27/2018 10:51 AM Preliminary: Sandra Albarado MD | | | Dictation initiated: Sandra Albarado MD 08/27/2018 8:10 AM | | + + + + + | Procedure Note | + + | Service Account, Radiant Res In Interface - 08/27/2018 10:52 AM PDT EXAM: | | Radiographic shunt series (AP and lateral radiographs of the skull, AP and lateral | | radiographs of the chest, and AP and lateral radiographs of the abdomen) HISTORY: Eval | | shunt COMPARISON: Same day CT head and shunt eval 07/02/2016. FINDINGS: SKULL: A | | right-sided ventriculoperitoneal shunt is present. Radiopaque portions of the shunt | | tubing appear continuous in the head and neck. CHEST: The shunt continues through the | | anterior chest wall without evident discontinuity. ABDOMEN: The shunt terminates in the | | pelvis. There is adequate shunt length in the peritoneal cavity. No shunt | | discontinuity or kinking is seen. No abnormal mass effect is identified in the abdomen | | to suggest presence of a pseudocyst. IMPRESSION: No shunt discontinuity identified. I | | have personally reviewed the images and, if necessary, edited the report. I agree with | | the report as now presented. Final signature: Sohail Bailon MD 08/27/2018 10:51 AM | | Preliminary: Sandra Albarado MD Dictation initiated: Sandra Albarado MD 08/27/2018 8:10 | | AM | |IMPRESSION: | | | |No shunt discontinuity identified. | | | |I have personally reviewed the images and, if necessary, edited the report. I agree with th e report as now presented. | | | |Final signature: Sohail Bailon MD 08/27/2018 10:51 AM | |Preliminary: Sandra Albarado MD | |Dictation initiated: Sandra Albarado MD 08/27/2018 8:10 AM | + + + +---------+ + + | Performing | Address | City/State/Zipcode | Phone Number | | Organization | | | | + +---------+ + + | [facility] | | | | | VOICE RECOGNITION 2 | | | | + +---------+ + + CT HEAD WO CONTRAST (08/27/2018 12:58 AM PDT) + + | Specimen | + + | | + + + + + | Narrative | Performed At | + + + | EXAM: CT HEAD WITHOUT CONTRAST HISTORY: generalized weakness, | [facility] | | eval shunt COMPARISON: 07/09/2018 TECHNIQUE: CT of the head | RADIOLOGY VOICE | | without intravenous contrast. FINDINGS: BRAIN: Redemonstrated | RECOGNITION 2 | | right posterior approach ventriculostomy catheter in unchanged | | | position. Unchanged cerebral hemisphere thinning. The ventricles are | | | stable in morphology and, when accounting for differences in | | | technique, not significantly changed from prior with the superior | | | lateral ventricles measuring up to 11.5 cm in diameter. No acute | | | intracranial abnormality. No evidence of hemorrhage, mass, or | | | territorial infarction. . The basal cisterns are patent. SOFT | | | TISSUES: Unremarkable. SKULL AND SKULL BASE: No fractures or | | | destructive lesions. Mastoids and middle ears are unremarkable. | | | FACE/ORBITS: Visualized portions are unremarkable. PARANASAL SINUSES: | | | Visualized portions are unremarkable. IMPRESSION: Stable | | | ventriculomegaly when compared to CT on 07/09/2018. No acute | | | intracranial abnormality. Availability of results was communicated | | | to the ED tip banding machine operator on 08/27/2018 1:07 AM by Armando Ferris MD. I | | | have personally reviewed the images and, if necessary, edited the | | | report. I agree with the report as now presented. Final | | | signature: Praveen Salgado MD 08/27/2018 7:57 AM Preliminary: Armando | | | MD [place] Dictation initiated: Armando Ferris MD | | | 08/27/2018 1:03 AM | | + + + + + | Procedure Note | + + | Service Account, Ruth Kunstadter – [employer] Res In Interface - 08/27/2018 7:58 AM PDT EXAM: CT HEAD | | WITHOUT CONTRAST HISTORY: generalized weakness, eval shunt COMPARISON: 07/09/2018 | | TECHNIQUE: CT of the head without intravenous contrast. FINDINGS: BRAIN: Redemonstrated | | right posterior approach ventriculostomy catheter in unchanged position. Unchanged | | cerebral hemisphere thinning. The ventricles are stable in morphology and, when | | accounting for differences in technique, not significantly changed from prior with the | | superior lateral ventricles measuring up to 11.5 cm in diameter. No acute intracranial | | abnormality. No evidence of hemorrhage, mass, or territorial infarction. . The basal | | cisterns are patent. SOFT TISSUES: Unremarkable.SKULL AND SKULL BASE: No fractures or | | destructive lesions. Mastoids and middle ears are unremarkable.FACE/ORBITS: Visualized | | portions are unremarkable.PARANASAL SINUSES: Visualized portions are unremarkable. | | IMPRESSION: Stable ventriculomegaly when compared to CT on 07/09/2018. No acute | | intracranial abnormality. Availability of results was communicated to the ED tip banding machine operator on | | 08/27/2018 1:07 AM by Armando Ferris MD. I have personally reviewed the images and, if | | necessary, edited the report. I agree with the report as now presented. Final | | signature: Praveen Salgado MD 08/27/2018 7:57 AM Preliminary: Armando Ferris MD | | Dictation initiated: Armando Ferris MD 08/27/2018 1:03 AM | | | |IMPRESSION: | | | |Stable ventriculomegaly when compared to CT on 07/09/2018. No acute intracranial abnormality . | | | |Availability of results was communicated to the ED tip banding machine operator on 08/27/2018 1:07 AM by Armando Ferris MD. | | | |I have personally reviewed the images and, if necessary, edited the report. I agree with th e report as now presented. | | | |Final signature: Praveen Salgado MD 08/27/2018 7:57 AM | |Preliminary: Armando Ferris MD | |Dictation initiated: Armando Ferris MD 08/27/2018 1:03 AM | + + + +---------+ + + | Performing | Address | City/State/Zipcode | Phone Number | | Organization | | | | + +---------+ + + | [facility] | | | | | VOICE RECOGNITION 2 | | | | + +---------+ + + US DUPLEX LOWER EXTREMITY VENOUS LEFT (08/26/2018 9:37 PM PDT) + + | Specimen | + + | | + + + + + | Narrative | Performed At | + + + | EXAM: US LOWER EXTREMITY WITH DUPLEX DOPPLER UNILATERAL. | [facility] | | HISTORY: LLE swelling generalized weakness over the last 3 weeks, | RADIOLOGY VOICE | | acutely worse over the last 3 days. Pt w/ hx of CP, sz disorder, | RECOGNITION 2 | | SDH, and hydrocephalus COMPARISON: None available TECHNIQUE: | | | Ultrasound with grayscale and duplex Doppler was performed of the | | | lower extremity veins. FINDINGS: Examination is limited | | | given patient characteristics and lower extremity swelling. The | | | common femoral, femoral and popliteal veins demonstrate a normal | | | response to augmentation and compression maneuvers. Color and | | | spectral Doppler flow is identified in these vessels with no evidence | | | of intraluminal thrombus. The calf/peroneal and posterior tibial | | | veins are also patent. IMPRESSION: No evidence of DVT | | | although examination is limited given patient scanning characteristics | | | and lower extremity swelling. These results were discussed with | | | Ronda Arndt MD on 08/26/2018 9:44 PM by Nabil Mason MD. I have | | | personally reviewed the images and, if necessary, edited the report. I | | | agree with the report as now presented. Final signature: Linda La | | | MD Grace 08/27/2018 9:05 AM Preliminary: Nabil Mason MD | | | Dictation initiated: Nabil Mason MD 08/26/2018 9:42 PM | | + + + + + | Procedure Note | + + | Service Account, Radiant Res In Interface - 08/27/2018 9:06 AM PDT EXAM: US LOWER | | EXTREMITY WITH DUPLEX DOPPLER UNILATERAL. HISTORY: LLE swelling generalized weakness | | over the last 3 weeks, acutely worse over the last 3 days. Pt w/ hx of CP, sz disorder, | | SDH, and hydrocephalus COMPARISON: None available TECHNIQUE: Ultrasound with grayscale | | and duplex Doppler was performed of the lower extremity veins. FINDINGS: Examination | | is limited given patient characteristics and lower extremity swelling. The common | | femoral, femoral and popliteal veins demonstrate a normal response to augmentation and | | compression maneuvers. Color and spectral Doppler flow is identified in these vessels | | with no evidence of intraluminal thrombus. The calf/peroneal and posterior tibial veins | | are also patent. IMPRESSION: No evidence of DVT although examination is limited given | | patient scanning characteristics and lower extremity swelling. These results were | | discussed with Ronda Arndt MD on 08/26/2018 9:44 PM by Nabil Mason MD. I have personally | | reviewed the images and, if necessary, edited the report. I agree with the report as | | now presented. Final signature: Linda Edwards MD 08/27/2018 9:05 AM Preliminary: | | Nabil Mason MD Dictation initiated: Nabil Mason MD 08/26/2018 9:42 PM | |IMPRESSION: | | | |No evidence of DVT although examination is limited given patient scanning characteristics a nd lower extremity swelling. | | | |These results were discussed with Ronda Arndt MD on 08/26/2018 9:44 PM by Nabil Mason MD. | | | |I have personally reviewed the images and, if necessary, edited the report. I agree with th e report as now presented. | | | |Final signature: Linda Edwards MD 08/27/2018 9:05 AM | |Preliminary: Nabil Mason MD | |Dictation initiated: Nabil Mason MD 08/26/2018 9:42 PM | + + + +---------+ + + | Performing | Address | City/State/Zipcode | Phone Number | | Organization | | | | + +---------+ + + | [facility] | | | | | VOICE RECOGNITION 2 | | | | + +---------+ + + BG-LAC,POC ISTAT (08/26/2018 6:25 PM PDT) + +-------+ + + + | Component | Value | Ref Range | Performed | Pathologist | | | | | At | Signature | + +-------+ + + + | TOTAL CO2 | 25 | 23 - 29 mmol/L | [facility] - | | | VEDA, POC | | | [place] | | | | | | BOB POINT | | | | | | OF CARE | | | | | | TESTS | | + +-------+ + + + | PH VENOUS, | 7.39 | 7.35 - 7.45 | [facility] - | | | POC | | | [place] | | | | | | [facility] | | | | | | OF CARE | | | | | | TESTS | | + +-------+ + + + | PCO2 | 39 | 35 - 50 mmHg | [facility] - | | | VENOUS, POC | | | [place] | | | | | | BOB POINT | | | | | | OF CARE | | | | | | TESTS | | + +-------+ + + + | HCO3 | 24 | 22 - 28 mmol/L | [facility] - | | | VENOUS, POC | | | [place] | | | | | | BOB POINT | | | | | | OF CARE | | | | | | TESTS | | + +-------+ + + + | PO2 VENOUS, | <41 | 30 - 55 mmHg | [facility] - | | | POC | | | [place] | | | | | | [place] | | | | | | OF CARE | | | | | | TESTS | | + +-------+ + + + | O2 SAT | 68 | 95 - 98 % | [facility] - | | | VENOUS, POC | | | [place] | | | | | | [facility] | | | | | | OF CARE | | | | | | TESTS | | + +-------+ + + + | LACTATE | 1.5 | 0.5 - 2.0 | [facility] - | | | VENOUS, POC | | mmol/L | [place] | | | | | | BOB POINT | | | | | | OF CARE | | | | | | TESTS | | + +-------+ + + + | PAT TEMP | 98.0 | | [facility] - | | | VENOUS,POC | | | [place] | | | | | | BOB POINT | | | | | | OF CARE | | | | | | TESTS | | + +-------+ + + + | BASE EXCESS | -1.0 | -2 - 3 mmol/L | [facility] - | | | VEDA, POC | | | [place] | | | | | | H[place], POINT | | [...] | [facility] | [address] | [place], [place] | | | [place] ROJAS | [facility] | [address] | | | TESTS | | | | + + + + + RAINBOW HOLD TUBE - RED TOP (08/26/2018 6:09 PM PDT) + + | Specimen | + + | Blood - Blood | | (substance) | + + + + + + + | Performing | Address | City/State/Zipcode | Phone Number | | Organization | | | | + + + + + | [facility] | [address] | [place] [address] | | | SERVICES, CORE | [address] | | | + + + + + RAINBOW HOLD TUBE - BLUE TOP (08/26/2018 6:09 PM PDT) + + | Specimen | + + | Blood - Blood | | (substance) | + + + + + + + | Performing | Address | City/State/Zipcode | Phone Number | | Organization | | | | + + + + + | [facility] | [address] | [place] [address] | | | SERVICES, CORE | [address] | | | + + + + + CBC AND AUTO DIFF (08/26/2018 6:09 PM PDT) + + + + + + | Component | Value | Ref Range | Performed | Pathologist | | | | | At | Signature | + + + + + + | WHITE CELL | 14.03 (H) | 3.50 - 10.80 | [facility] | | | COUNT | | K/cu mm | LABORATORY | | | | | | SERVICES, | | | | | | CORE | | + + + + + + | RED CELL | 5.42 (H) | 4.00 - 5.20 | [facility] | | | COUNT | | M/cu mm | LABORATORY | | | | | | SERVICES, | | | | | | CORE | | + + + + + + | HEMOGLOBIN | 17.2 (H) | 12.0 - 16.0 | [facility] | | | | | g/dL | LABORATORY | | | | | | SERVICES, | | | | | | CORE | | + + + + + + | HEMATOCRIT | 50.8 (H) | 36.0 - 46.0 % | [...] + + | MCHC | 33.9 | 32.0 - 36.0 | [facility] | | | | | g/dL | LABORATORY | | | | | | SERVICES, | | | | | | CORE | | + + + + + + | RDW SD | 45.4 | 35.1 - 46.3 fL | [facility] | | | | | | LABORATORY | | | | | | SERVICES, | | | | | | CORE | | + + + + + + | PLATELET | 365 | 150 - 400 K/cu | [facility] [...] + + + + | NEUTROPHIL | 70.5 (H) | 50.0 - 70.0 % | [facility] | | | % | | | LABORATORY | | | | | | SERVICES, | | | | | | CORE | | + + + + + + | LYMPHOCYTE | 20.2 | 18.0 - 42.0 % | [facility] | | | % | | | LABORATORY | | | | | | SERVICES, | | | | | | CORE | | + + + + + + | MONOCYTE % | 8.0 | 3.5 - 9.0 % | [facility] | | | | | | LABORATORY | | | | | | SERVICES, | | | | | | CORE | | + + + + + + | EOS % | 0.5 (L) | 1.0 - 3.0 % | [...] + + + | IG% | 0.3Comment: Increased | 0.0 - 1.0 % | [...] + + + + | NEUTROPHIL | 9.89 (H) | 1.80 - 7.70 | [facility] | | | # | | K/cu mm | LABORATORY | | | | | | SERVICES, | | | | | | CORE | | + + + + + + | LYMPHOCYTE | 2.84 | 1.00 - 4.80 | [facility] | | | # | | K/cu mm | LABORATORY | | | | | | SERVICES, | | | | | | CORE | | + + + + + + | MONOCYTE # | 1.12 (H) | 0.10 - 0.90 | [facility] | | | | | K/cu mm | LABORATORY | | | | | | SERVICES, | | | | | | CORE | | + + + + + + | EOS # | 0.07 | 0.00 - 0.50 | [facility] | | | | | K/cu mm | LABORATORY | | | | | | SERVICES, | | | | | | CORE | | + + + + + + | BASO # | 0.07 | 0.00 - 0.10 | [facility] | | | | | K/cu mm | LABORATORY | | | | | | SERVICES, | | | | | | CORE | | + + + + + + | IG# | 0.04 | 0.00 - 0.10 | [facility] | [...] Performed At | + + + | Increased immature granulocytes (IG) define a left shift. Immature | [facility] | | granulocytes (IG) are an automated count of metamyelocytes, myelocytes | LABORATORY | | and promyelocytes. Bands are not included in the IG count. Bands are | SERVICES, CORE | | included in the neutrophil count. | | + + + + + + + + | Performing | Address | City/State/Zipcode | Phone Number | | Organization | | | | + + + + + | [facility] | [address] | [place] [address] | | | SERVICES, CORE | [address] | | | + + + + + BLOOD BANK HOLD TUBE - DON T PROCESS (08/26/2018 6:09 PM PDT) + + + + + [...] + | [facility] | [address] | [place] [address] | | | SERVICES, | [address] | | | | TRANSFUSION MEDICINE | | | | + + + + + COMPLETE METABOLIC SET (NA,K,CL,CO2,BUN,CREAT,GLUC,CA,AST,ALT,BILI TOTAL,ALK PHOS,ALB,PROT TOTAL) (08/26/2018 6:09 PM PDT) + +---------+ + + + | Component | Value | Ref Range | Performed | Pathologist | | | | | At | Signature | + +---------+ + + + | GLUCOSE, | 119 (H) | 70 - 99 mg/dL | [facility] [...] +---------+ + + + | CREATININE | 0.78 | 0.60 - 1.10 | [facility] | | | PLASMA | | mg/dL | LABORATORY | | | (LAB) | | | SERVICES, | | | | | | CORE | | + +---------+ + + + | EGFR | >60 | >60 mL/min | [facility] | | | - | | | LABORATORY | | | [place] | | | SERVICES, | | | [...] +---------+ + + + | CALCIUM, | 10.2 | 8.6 - 10.2 | [facility] | [...] +---------+ + + + | BILIRUBIN | 0.5 | 0.3 - 1.2 mg/dL | [facility] | | | TOTAL | | | LABORATORY | | | | | | SERVICES, | | | | | | CORE | | + +---------+ + + + | TOTAL | 9.0 (H) | 6.4 - 8.2 g/dL | [facility] | | | PROTEIN, | | | LABORATORY | | | PLASMA | | | SERVICES, | | | (LAB) | | | CORE | | + +---------+ + + + | ALBUMIN, | 4.2 | 3.5 - 4.7 g/dL | [facility] | | | PLASMA | | | LABORATORY | | | (LAB) | | | SERVICES, | | | | | | CORE | | + +---------+ + + + | ALK PHOS | 147 (H) | 42 - 98 U/L | [...] + + + | ALT (SGPT) | 45 | <=60 U/L | [facility] | | [...] +---------+ + + + | ANION | 7 | 4 - 11 mmol/L [...] MDRD equation recommended by the National | [facility] | | Kidney Disease Education Program. Estimated [...] | | | paraplegics, or other muscle-wasting diseses | | + + + + + + + + | Performing | Address | City/State/Zipcode | Phone Number | | Organization | | | | + + + + + | [facility] | [address] | [place] [address] | | | SERVICES, R[place] | [address] | | | + + + + + documented in this encounter Visit Diagnoses + + | Diagnosis | + + | Declining functional status - Primary Debility, unspecified | + + | Generalized weakness Other malaise and fatigue | + + | Acute cystitis without hematuria Acute cystitis | + + documented in this encounter Administered Medications + +--------+ +-------+------+------+ | Medication Order | MAR | Action | Dose | Rate | Site | | | Action | Date | | | | + +--------+ +-------+------+------+ | baclofen (LIORESAL) tablet 10 | Given | 08/30/19 | 10 mg | | | | mg 10 mg, oral, EVERY MORNING, | | 19 7:53 | | | | | First dose on [facility] 08/27/18 at | | AM PDT | | | | | 0900, Until Discontinued | | | | | | + +--------+ +-------+------+------+ +-------+ +-------+---+---+ | Given | 08/29/19 | 10 mg | | | | | 19 8:58 | | | | | | AM PDT | | | | +-------+ +-------+---+---+ | Given | 08/28/19 | 10 mg | | | | | 19 10:00 | | | | | | AM PDT | | | | +-------+ +-------+---+---+ +---+---+ | | | +---+---+ + +-------+ +--------+---+---+ | cephALEXin (KEFLEX) capsule 500 | Given | 08/28/19 | 500 mg | | | | mg 500 mg, oral, ONCE, 1 dose, | | 19 2:54 | | | | | [facility] 08/27/18 at 0315 | | AM PDT | | | | + +-------+ +--------+---+---+ +---+---+ | | | +---+---+ + +-------+ +--------+---+---+ | cholecalciferol (Vitamin D3) | Given | 08/30/19 | 4,000 | | | | (VITAMIN D-3) capsule 4,000 Units | | 19 7:53 | Units | | | | 4,000 Units, oral, DAILY, First | | AM PDT | | | | | dose on [facility] 08/27/18 at 0900, | | | | | | | Until Discontinued | | | | | | + +-------+ +--------+---+---+ +-------+ +--------+---+---+ | Given | 08/29/19 | 4,000 | | | | | 19 8:58 | Units | | | | | AM PDT | | | | +-------+ +--------+---+---+ | Given | 08/28/19 | 4,000 | | | | | 19 10:00 | Units | | | | | AM PDT | | | | +-------+ +--------+---+---+ +---+---+ | | | +---+---+ + +---------+ + +---+---+ | lactated ringers IV 1,000 mL, | New Bag | 08/27/19 | 1,000 mL | | | | intravenous, ONCE, 1 dose, Wed | | 19 7:55 | | | | | 08/26/18 at 2030 | | PM PDT | | | | + +---------+ + +---+---+ +---+---+ | | | +---+---+ + +---------+ + +---+---+ | lactated ringers IV 1,000 mL, | New Bag | 08/27/19 | 1,000 mL | | | | intravenous, ONCE, 1 dose, Wed | | 19 10:59 | | | | | 08/26/18 at 2330 | | PM PDT | | | | + +---------+ + +---+---+ +---+---+ | | | +---+---+ + +---------+ + +---+---+ | lactated ringers IV 1,000 mL, | New Bag | 08/28/19 | 1,000 mL | | | | intravenous, ONCE, 1 dose, [facility] | | 19 2:54 | | | | | 08/27/18 at 0000 | | AM PDT | | | | + +---------+ + +---+---+ +---+---+ | | | +---+---+ + +-------+ +--------+---+---+ | lamoTRIgine (LAMICTAL) tablet | Given | 08/30/19 | 100 mg | | | | 100 mg 100 mg, oral, TWICE | | 19 7:53 | | | | | DAILY, First dose on [facility] 08/27/18 | | AM PDT | | | | | at 0900, Until Discontinued | | | | | | + +-------+ +--------+---+---+ +-------+ +--------+---+---+ | Given | 08/29/19 | 100 mg | | | | | 19 9:56 | | | | | | PM PDT | | | | +-------+ +--------+---+---+ | Given | 08/29/19 | 100 mg | | | | | 19 8:58 | | | | | | AM PDT | | | | +-------+ +--------+---+---+ +---+---+ | | | +---+---+ + +-------+ +------+---+---+ | LORazepam (ATIVAN) injection 1 | Given | 08/27/19 | 1 mg | | | | mg 1 mg, intravenous, ONCE, 1 | | 19 10:45 | | | | | dose, [facility] 08/26/18 at 2300 | | PM PDT | | | | + +-------+ +------+---+---+ +---+---+ | | | +---+---+ + +-------+ + +---+---+ | multivitamin (THERA VITAMIN) 1 | Given | 08/30/19 | 1 tablet | | | | tablet 1 tablet, oral, DAILY, | | 19 7:53 | | | | | First dose on [facility] 08/27/18 at | | AM PDT | | | | | 0900, Until Discontinued | | | | | | + +-------+ + +---+---+ +-------+ + +---+---+ | Given | 08/29/19 | 1 tablet | | | | | 19 8:58 | | | | | | AM PDT | | | | +-------+ + +---+---+ | Given | 08/28/19 | 1 tablet | | | | | 19 9:59 | | | | | | AM PDT | | | | +-------+ + +---+---+ +---+---+ | | | +---+---+ + +-------+ +--------+---+---+ | nitrofurantoin | Given | 08/30/19 | 100 mg | | | | monohydrate/macrocrystal | | 19 7:53 | | | | | (MACROBID) capsule 100 mg 100 | | AM PDT | | | | | mg, oral, TWICE DAILY, First dose | | | | | | | on [facility] 08/27/18 at 0900, Until | | | | | | | Discontinued | | | | | | + +-------+ +--------+---+---+ +-------+ +--------+---+---+ | Given | 08/29/19 | 100 mg | | | | | 19 9:56 | | | | | | PM PDT | | | | +-------+ +--------+---+---+ | Given | 08/29/19 | 100 mg | | | | | 19 8:58 | | | | | | AM PDT | | | | +-------+ +--------+---+---+ +---+---+ | | | +---+---+ + +-------+ +--------+---+---+ | perflutren lipid microspheres | Given | 08/28/19 | 1.5 mL | | | | (DEFINITY) injection 1.5 mL 1.5 | | 19 10:30 | | | | | mL, intravenous, PROCEDURE ONCE, | | AM PDT | | | | | 1 dose, [facility] 08/27/18 at 1145 | | | | | | + +-------+ +--------+---+---+ +---+---+ | | | +---+---+ + +---------+ +--------+---+---+ | sodium chloride 0.9 % (NS) IV | New Bag | 08/30/19 | 500 mL | | | | infusion 500 mL, intravenous, | | 19 10:24 | | | | | ONCE, 1 dose, [facility] 08/29/18 at 1015 | | AM PDT | | | | + +---------+ +--------+---+---+ +---+---+ | | | +---+---+ documented in this encounter
--- OUTSIDE RECORDS SUMMARY | ~2019-10-25 | XMS | Encounter Summary ---
Demographics + + + | Address | [address] | | | [place] [address] | + + + | Home Phone [...] [place] | | | | | [address] | | + + + + + | Scott Nicole | ECON | Unknown | | + + + + + Care Team Providers + +------+ + | Care Hat Body Inspector Name | Role | Phone | [...] | | | | | hydrocephalu | [facility] | Ave | | | | | s (HCC) | [facility] | [place], [place] | | | | | Procedures | Rd | [address] | | | | | IN EST | [place], [place] | Phone: | | | | | PATIENT | [address] | [phone] | | | | | LEVEL V IN | Phone: | Fax: | | | | | REPROGRAMMIN | [phone] | [phone] | | | | | G,PROGRAMMAB | Fax: | | | | | | LE CSF SHUNT | [phone] | | +--------+--------+ + + + + [...] | | | [facility] for | [place], [place] | | | | | Health and Healing, | [address] | | | | | [facility] | [phone] | | | | | floor [place], [place] | | | | | | [address] | | | | | | [phone] | | | +--------+---------+ + + + [...] care. 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/5, the hand is curled with [...] Mercedes Gonzalez MD PGY-5 Neurological Surgery Pager [phone] documented in this enco unter Plan of Treatment +--------+---------+ + + + | Date | Type | Specialty | Care Team | Description | +--------+---------+ + + + | 11/24/ | Office | Neurological Surgery | Talya Delgado, | | | 2019 | Visit | | [address] | | | | | | [place], [place] | | | | | | [address] | | | | | | [phone] | | | | | | | | +--------+---------+ + + + documented as of this encounter Visit Diagnoses + + | Diagnosis | + + | Hydrocephalus (HCC) - Primary Obstructive hydrocephalus | + + documented in this encounter"
--- OUTSIDE RECORDS SUMMARY | ~2019-10-25 | XMS | Encounter Summary ---
Demographics + + + | Address | [address] | | | [place] [address] | + + + | Home Phone [...] Author + + + | Author | [facility] | + + + | Organization | [facility] | + + + | Address | Unknown | + + + | Phone | Unavailable | + + + Support + + + + + | Name | Relationship | Address | Phone | + + + + + | Malina Nicole | ECON | [phone] | | | | | [place] | | | | | [address] | | + + + + + | Scott Mcgarry ECON | Unknown | | + + + + + Care Team Providers + +------+ + | Care Lock Tender Chief Operator Name | Role | Phone | [...] | | | | | Procedures | [place], [place] | [place] | | | | | MRI BRAIN WO | [address] | [place], [place] | | | | | CONTRAST | Phone: | [address] | | | | | | [phone] | Phone: | | | | | | Fax: | [phone] | | | | | | [phone] | Fax: | | | | | | | [phone] | +--------+--------+ + + + + Reason [...] | | | | | hydrocephalu | [facility] | [address] | | | | | s (HCC) | Street | Physician's | | | | | Spastic | [place], | Pavilion, | | | | | hemiplegia | [place] [address] | 2nd floor | | | | | affecting | Phone: | [place], [place] | | | | | dominant | [phone] | [address] | | | | | side (HCC) | Fax: | Phone: | | | | | INS: | [phone] | [phone] | | | | | Medicare/DMA | | Fax: | | | | | P | | [phone] | +--------+ + + + + + [...] ventriculomegaly | | | | Physician's | [place], [place] | | | | | Pavilion, 2nd floor | [address] | | | | | [place], [place] | [phone] | | | | | [address] | | | | | | [phone] | | | +--------+---------+ + + + [...] the left side many years ago in [place] but she had sleeping and breathing complications [...] | | 2019 | Visit | | [address] | | | | | | [place], [place] | | | | | | [address] | | | | | | [phone] | | | | | | | [...] Procedure Note | + + | Ebony Torrze - 12/27/2011 11:06 AM PDT | + + documented in this encounter Visit Diagnoses + + | Diagnosis | + + | Spasticity Abnormal involuntary movements | + + | Cerebral ventriculomegaly Other conditions of brain | + + documented in this encounter"
--- OUTSIDE RECORDS SUMMARY | ~2019-10-25 | XMS | Encounter Summary ---
Demographics + + + | Address | [address] | | | [place] [address] | + + + | Home Phone | | + + + | Preferred Language | Unknown | + + + | Marital Status | Single | + + + | Uatsdin Affiliation | NRP | + + + [...] [place] | | | | | [address] | | + + + + + | Scott Mcgarry ECON | Unknown | | + + + + + Care Team Providers + +------+ + | Care Radio Installer Name | Role | Phone | + +------+ + | Patricia Stevens | PCP | | + +------+ + Reason for Visit + + + | Reason | Comments | + + + | Telephone follow-up | | + + + Encounter Details +--------+ + + + + | Date | Type | Department | Care Team | Description | +--------+ + + + + | 11/05/ | Telephone | Neurosurgery at | Nolvia Delgado, | Telephone follow-up | | 2015 | | [facility] [address] | MD [address] | | | | | [address] Center for | [place], [place] | | | | | Health and Healing, | [address] | | | | | [facility] | [phone] | | | | | floor [place], [place] | | | | | | [address] | | | | | | [phone] | | | +--------+ + + + [...] 2019 | Visit | | [address] | | | | | | [place], [place] | | | | | | [address] | | | | | | [phone] | | | | | | | | +--------+---------+ + + + documented as of this encounter Visit Diagnoses Not on filedocumented in this encounter"
--- OUTSIDE RECORDS SUMMARY | ~2019-10-25 | XMS | Encounter Summary ---
Demographics + + + | Address | [address] | | | [place] [address] | + + + | Home Phone | | + + + | Preferred Language | Unknown | + + + | Marital Status | Single | + + + | Jewish Affiliation | NRP | + + + [...] [place] | | | | | [address] | | + + + + + | Scott Nicole | ECON | Unknown | | + + + + + Care Team Providers + +------+ + | Care Visual Specialist Name | Role | Phone | [...] + + + + | 04/23/ | Anesthesia | 6A Intra Op 3181 | [place], | | | 2020 | Event | [facility]a | Gil Apple MD 0619 | | | | | [facility] | [facility] Sena | | | | | Hospital Admitting | Rd [facility] [place] | | | | | Desk Located on the | [address] | | | | | 9th floor | [phone] | | | | | [facility] [place] | | | | | | [address] | Milad Flores | | | | | Zeferino Jarquin MD [address] | | | | | | [place] | | | | | | [facility] [place] | | | | | | [address] | | | | | | [phone] | | | | | | | | +--------+ + + + + Anesthesia Record + + + + + | Procedure Name | Responsible | Anesthesia Start | Anesthesia Stop Time | | | Anesthesiologist | Time | | + + + + + | RIGHT | Gil L | 04/23/19 1206 | 04/23/19 1415 | | VENTRICULOPERTITONEA | MD Thomas | | | | L SHUNT VALVE | | | | | REVISION, (Right | | | | | Head) | | | | + + + + + +----+---+ + + | Da | T | Event | Comment | | te | i | | | | | m | | | | | e | | | +----+---+ + + | 02 | 1 | Pt. Check | Prior to anesthesia start, pt. Identified, examined, chart | | /0 | 1 | | reviewed, PARQ held, anesthetic plan made or approved by | | 7/ | 3 | | attending anesthesiologist. NPO status confirmed as appropriate | | 20 | 3 | | for procedure Preoperative evaluation: unchanged | | 20 | | | | +----+---+ + + | | 1 | | | | | 1 | | | | | 3 | | | | | 4 | | | +----+---+ + + | | 1 | An Start | | | | 2 | | | | | 0 | | | | | 6 | | | +----+---+ + + | | 1 | An Start | | | | 2 | Data | | | | 1 | | | | | 1 | | | +----+---+ + + | | 1 | Vitals | Monitors applied Vital signs checked Patient ready for anesthesia | | | 2 | Checked | | | | 1 | | | | | 6 | | | +----+---+ + + | | 1 | ETT | | | | 2 | | | | | 2 | | | | | 6 | | | +----+---+ + + | | 1 | Ready | | | | 2 | | | | | 3 | | | | | 0 | | | +----+---+ + + | | 1 | Abx | | | | 2 | Administere | | | | 4 | d | | | | 7 | | | +----+---+ + + | | 1 | Local | | | | 3 | Anesthetic | | | | 1 | by Surgeon | | | | 1 | | | +----+---+ + + | | 1 | Incision | | | | 3 | | | | | 1 | | | | | 2 | | | +----+---+ + + | | 1 | Surgery end | | | | 4 | | | | | 0 | | | | | 1 | | | +----+---+ + + | | 1 | An Extubate | Neuromuscular function Intact. Pharynx suctioned. Patient obeys | | | 4 | | commands. Adequate pulmonary mechanics. | | | 0 | | | | | 3 | | | +----+---+ + + | | 1 | an stop | | | | 4 | data | | | | 0 | | | | | 3 | | | +----+---+ + + | | 1 | PACU Rpt | | | | 4 | Given | | | | 1 | | | | | 5 | | | +----+---+ + + | | 1 | Anesthesia | | | | 4 | End | | | | 1 | | | | | 5 | | | +----+---+ + + | | 1 | Post-Op | | | | 4 | Page | | | | 3 | | | | | 0 | | | +----+---+ + + +------+ | Meds | +------+ + +---------+ | Name | Total | + +---------+ | fentaNYL | 150 mcg | + +---------+ | propofol | 300 mg | + +---------+ | rocuronium | 100 mg | + +---------+ | lidocaine 1% | 100 mg | + +---------+ | dexamethasone | 4 mg | + +---------+ | ceFAZolin (ANCEF) injection 2 g | 2 g | + +---------+ | PHENYLEPHrine | 200 mcg | + +---------+ | neostigmine vial | 5 mg | + +---------+ | glycopyrrolate | 0.8 mg | + +---------+ | ondansetron | 4 mg | + +---------+ | NS bolus | 800 mL | + +---------+ + + | Name | + + | O2 FR Avance (Total Liters) | + + | Air FR Avance (l/min) | + + | Insp Iso | + + | Et Iso | + + | Insp N2O % | + + + + | No blood administrations on file. | + + +--------+ + + + | Type | Details | Placement | Removal | +--------+ + + + | Incisi | 04/23/19; dr. mendietac; Right; | 04/23/19 0000 by | 04/23/191611 by | | on | head; 04/23/19; 1611 | Yu Ambriz RN | Madie Moctezuma RN | +--------+ + + + | Periph | 04/23/19; 919; Left; Dorsal; | 04/23/19919 by Dahila | 04/23/191611 by | | eral | Hand; 20 g; 04/23/19; 1612 | Dorinda Blanchard RN | Madie Moctezuma RN | | IV | | | | +--------+ + + + | ETT | 04/23/19; 1226 (created via | 04/23/19 1226 by | 04/23/19 1403 by | | | procedure documentation); | Milad Hassan | Milad Hassan | | | Milad Chairez MD; | MD Contreras | MD Contreras | | | Endotracheal Tube; 7.5; Oral; | | | | | Cuffed; 04/23/19; 1403 | | | +--------+ + + + [...] Tracy | | | | | | [place], [place] | | | | | | [address] | | | | | | [phone] | | | | | | | | +--------+---------+ + + + documented as of this encounter Procedures + +--------+ + + + | Procedure Name | Priori | Date/Time | Associated Diagnosis | Comments | | | ty | | | | + +--------+ + + + | ANE ETT | Routin | 04/23/2019 | | Results for this | | | e | 1:32 PM | | procedure are in the | | | | PST | | results section. | + +--------+ + + + documented in this encounter Results ETT (04/23/2019 1:32 PM PST) + + + | Narrative | Performed At | + + + | Milad Chairez MD 04/23/2019 1:34 PM AIRWAY | | | MANAGEMENT - ETT Time of Placement: 04/23/2019 12:26 PM Intubation | | | Reason: For surgical procedure Positioning: Supine Location | | | Performed:OR OXYGENATION Patient was preoxygenated Grade: Grade | | | 2 - Ventilated by mask with oral airway/adjuvant Induction:Routine | | | INTUBATION ATTEMPT 1 Blade Type: Bach Blade #: 2 | | | Intubation Adjuncts: w/ Stylet Laryngoscopic View: Grade II ETT | | | DETAILS ETT Type:Standard, Hi-Lo Cuffed Intubation Type: Oral Cuff | | | Status: Cuffed Size: 7.5 ETT secured with adhesive tape Depth at | | | Lip: 21 cm CONFIRMATION airway not difficult Number of | | | Attempts: 1 Atraumatic placement Positive for EtCO2:Waveform | | | capnography Breath Sounds: Bilateral and equal NARRATIVE | | | Attending was physically present for the critical portions of the | | | procedure as described in the procedure note Attending/Authorizing | | | Provider: Gil Guzman MD Performing Provider: Milad Jarquin | | | Mo Chairez MD Procedure Comments: Smooth IV induction, easy BMV | | | with OA. DL with bach 2, grade IIb view. Atraumatic intubation. | | | Soft gauze bite block placed between teeth | | + + + documented in this encounter Visit Diagnoses Not on filedocumented in this encounter Administered Medications + +--------+ +------+------+------+ | Medication Order | MAR | Action | Dose | Rate | Site | | | Action | Date | | | | + +--------+ +------+------+------+ | ceFAZolin (ANCEF) injection 2 g | Given | 04/23/19 | 2 g | | | | 2 g, intravenous, PREPROCEDURE | | 20 12:47 | | | | | ONCE, 1 dose, Starting 04/23/19 | | PM PST | | | | | at 0821, Until Fri04/23/19 at | | | | | | | 1247 | | | | | | + +--------+ +------+------+------+ +---+---+ | | | +---+---+ + +-------+ +------+---+---+ | dexamethasone (DECADRON) | Given | 04/23/19 | 4 mg | | | | injection intravenous, | | 20 12:40 | | | | | INTRAPROCEDURE PRN, Starting Fri | | PM PST | | | | | 04/23/19 at 1240, Until 04/23/19 | | | | | | | at 1415 | | | | | | + +-------+ +------+---+---+ +---+---+ | | | +---+---+ + +-------+ +--------+---+---+ | fentaNYL (SUBLIMAZE) injection | Given | 04/23/19 | 50 mcg | | | | INTRAPROCEDURE PRN, Starting Fri | | 20 1:51 | | | | | 04/23/19 at 1216, Until 04/23/19 | | PM PST | | | | | at 1415 | | | | | | + +-------+ +--------+---+---+ +-------+ +---------+---+---+ | Given | 04/23/19 | 100 mcg | | | | | 20 12:16 | | | | | | PM PST | | | | +-------+ +---------+---+---+ +---+---+ | | | +---+---+ + +-------+ +--------+---+---+ | glycopyrrolate (PF) (RJ) | Given | 04/23/19 | 0.4 mg | | | | injection soln INTRAPROCEDURE | | 20 1:46 | | | | | PRN, Starting Fri04/23/19 at 1346, | | PM PST | | | | | Until Fri04/23/19 at 1415 | | | | | | + +-------+ +--------+---+---+ +-------+ +--------+---+---+ | Given | 04/23/19 | 0.4 mg | | | | | 20 1:45 | | | | | | PM PST | | | | +-------+ +--------+---+---+ +---+---+ | | | +---+---+ + +-------+ +--------+---+---+ | lidocaine PF (XYLOCAINE MPF) 10 | Given | 04/23/19 | 100 mg | | | | mg/mL (1 %) injection | | 20 12:18 | | | | | INTRAPROCEDURE PRN, Starting Fri | | PM PST | | | | | 04/23/19 at 1218, Until 04/23/19 | | | | | | | at 1415 | | | | | | + +-------+ +--------+---+---+ +---+---+ | | | +---+---+ + +-------+ +--------+---+---+ | neostigmine (PROSTIGMIN) | Given | 04/23/19 | 2.5 mg | | | | intravenous, INTRAPROCEDURE PRN, | | 20 1:45 | | | | | Starting 04/23/19 at 1344, | | PM PST | | | | | Until 04/23/19 at 1415 | | | | | | + +-------+ +--------+---+---+ +-------+ +--------+---+---+ | Given | 04/23/19 | 2.5 mg | | | | | 20 1:44 | | | | | | PM PST | | | | +-------+ +--------+---+---+ +---+---+ | | | +---+---+ + +-------+ +------+---+---+ | ondansetron (ZOFRAN) injection | Given | 04/23/19 | 4 mg | | | | INTRAPROCEDURE PRN, Starting Fri | | 20 1:38 | | | | | 04/23/19 at 1338, Until Fri04/23/19 | | PM PST | | | | | at 1415 | | | | | | + +-------+ +------+---+---+ +---+---+ | | | +---+---+ + +-------+ +---------+---+---+ | PHENYLEPHrine 100 mcg/mL IV | Given | 04/23/19 | 200 mcg | | | | syringe INTRAPROCEDURE PRN, | | 20 12:59 | | | | | Starting 04/23/19 at 1259, | | PM PST | | | | | Until 04/23/19 at 1415 | | | | | | + +-------+ +---------+---+---+ +---+---+ | | | +---+---+ + +-------+ +-------+---+---+ | propofol (DIPRIVAN) injection | Given | 04/23/19 | 30 mg | | | | INTRAPROCEDURE PRN, Starting Fri | | 20 1:55 | | | | | 04/23/19 at 1218, Until 04/23/19 | | PM PST | | | | | at 1415 | | | | | | + +-------+ +-------+---+---+ +-------+ +-------+---+---+ | Given | 04/23/19 | 10 mg | | | | | 20 1:51 | | | | | | PM PST | | | | +-------+ +-------+---+---+ | Given | 04/23/19 | 20 mg | | | | | 20 1:49 | | | | | | PM PST | | | | +-------+ +-------+---+---+ +---+---+ | | | +---+---+ + +-------+ +-------+---+---+ | rocuronium injection | Given | 04/23/19 | 20 mg | | | | INTRAPROCEDURE PRN, Starting Fri | | 20 1:15 | | | | | 04/23/19 at 1218, Until 04/23/19 | | PM PST | | | | | at 1415 | | | | | | + +-------+ +-------+---+---+ +-------+ +-------+---+---+ | Given | 04/23/19 | 30 mg | | | | | 20 12:33 | | | | | | PM PST | | | | +-------+ +-------+---+---+ | Given | 04/23/19 | 50 mg | | | | | 20 12:18 | | | | | | PM PST | | | | +-------+ +-------+---+---+ +---+---+ | | | +---+---+ + + + +---+---+---+ | sodium chloride (NS) 0.9 % | given by | 04/23/19 | | | | | bolus INTRAPROCEDURE CONTINUOUS | | 20 2:10 | | | | | PRN, Starting 04/23/19 at 1206, | anesthes | PM PST | | | | | Until Fri04/23/19 at 1415 | iology | | | | | + + + +---+---+---+ + + +---+---+---+ | given by anesthesiology | 04/23/19 | | | | | | 20 1:39 | | | | | | PM PST | | | | + + +---+---+---+ | New Bag | 04/23/19 | | | | | | 20 12:06 | | | | | | PM PST | | | | + + +---+---+---+ +---+---+ | | | +---+---+ documented in this encounter"
--- OUTSIDE RECORDS SUMMARY | ~2019-10-25 | XMS | Encounter Summary ---
Demographics + + + | Address | [address] | | | [place] [address] | + + + | Home Phone [...] [place] | | | | | [address] | | + + + + + | Bill Corey | ECON | Unknown | | + + + + + Care Team Providers + +------+ + | Care Testing Shaking Shipping Name | Role | Phone | + +------+ + PCP | Unavailable | + +------+ + Reason for Referral Diagnostic Testing (Routine) +--------+--------+ + + + + | Status | Reason | Specialty | Diagnoses / | Referred By | Referred To | | | | | Procedures | Contact | Contact | +--------+--------+ + + + + | Closed | | Radiology | Diagnoses | Bernardo | [facility] | | | | | Obstructive | Kristen Duran, | [address] | | | | | | [place] [address] | [place] Sena | | | | | hydrocephalu | [address] | [address] [place] | | | | | s (HCC) | [place], [place] | Research | | | | | Procedures | [address] | Center | | | | | MRI BRAIN WO | Phone: | [place], [place] | | | | | [facility] | [phone] | [address] | | | | | [address] | Fax: | Phone: | | | | | [facility] | [phone] | [phone] | | | | | RITA | | Fax: | | | | | | | [phone] | +--------+--------+ + + + + Reason for Visit + + + | Reason | Comments | + + + | Treatment Planning | | + + + Encounter Details +--------+ + + + + | Date | Type | Department | Care Team | Description | +--------+ + + + + | 06/25/ | Telephone | Neurosurgery at | Chang, | Treatment Planning | | 2013 | | [facility] | REENA Hunter | | | | | and Healing [address] | | | | | [address] [facility] | [place], [place] | | | | | Health and Healing, | [address] | | | | | Building | [phone] | | | | | Floor [place], [place] | | | | | | [address] | | | | | | [phone] | | | +--------+ + + + [...] | | 2020 | Visit | | [address] | | | | | | [place], [place] | | | | | | [address] | | | | | | [phone] | | | | | | | [...] + + | Performing | Address | City[facility]State[facility] | Phone Number | | Organization | | | | + +---------+ + + | [facility] DEPARTMENT OF | | | | | RADIOLOGY | | | | + +---------+ + + documented in this encounter Visit Diagnoses + + | Diagnosis | + + | Obstructive hydrocephalus (HCC) - Primary Obstructive hydrocephalus | + + documented in this encounter"
--- OUTSIDE RECORDS SUMMARY | ~2019-10-25 | XMS | Encounter Summary ---
Demographics + + + | Address | [address] | | | [place] [address] | + + + | Home Phone [...] [place] | | | | | [address] | | + + + + + | Scott Mcgarry ECON | Unknown | | + + + + + Care Team Providers + +------+ + | Care Title I Instructional Assistant Name | Role | Phone | [...] | | | | | | [address] [place], [place] | | | | | | [address] | | | | | | [phone] | | | +--------+ + + + [...] | | 2019 | Visit | | [address] | | | | | | [place], [place] | | | | | | [address] | | | | | | [phone] | | | | | | | | +--------+---------+ + + + documented as of this encounter Visit Diagnoses Not on filedocumented in this encounter"
--- OUTSIDE RECORDS SUMMARY | ~2019-10-25 | XMS | Encounter Summary ---
Demographics + + + | Address | [address] | | | [place] [address] | + + + | Home Phone [...] + + + | Author | [facility] | + + + | Organization | [facility] | + + + | Address | Unknown | + + + | Phone | Unavailable | + + + Support + + + + + | Name | Relationship | Address | Phone | + + + + + | Malina Nicole | ECON | [address] | | | | | [place] | | | | | [address] | | + + + + + | Scott Mcgarry ECON | Unknown | | + + + + + Care Team Providers + +------+ + | Care Armored Machine Operator Name | Role | Phone [...] s (HCC) | [address] | [address] [place] | | | | | Procedures | [place], [place] | Research | | | | | MRI BRAIN WO | [address] | Center | | | | | CONTRAST | Phone: | [place], [place] | | | | | | [phone] | [address] | | | | | | Fax: | Phone: | | | | | | [phone] | [phone] | | | | | | | Fax: | | | | | | | [phone] | +--------+--------+ + + + + Encounter Details +--------+ + + + + | Date | Type | Department | Care Team | Description | +--------+ + + + + | 09/01/ | Telephone | Neurosurgery at | Nolvia Delgado, | | | 2014 | | [facility] [address] | MD [address] | | | | | Ave Center for | [place], [place] | | | | | Health and Healing, | [address] | | | | | [facility] , 8th | [phone] | | | | | floor [place], [place] | | | | | | [address] | | | | | | [phone] | | | +--------+ + + + [...] [address] | | | | | | [place], [place] | | | | | | [address] | | | | | | [phone] | | | | | | | | +--------+---------+ + + + + +---------+--------+ + + | Name | Type | Priori | Associated Diagnoses | Order Schedule | | | | ty | | | + +---------+--------+ + + | MRI BRAIN WO | Imaging | Routin | Congenital | Expected: | | CONTRAST | | e | hydrocephalus (HCC) | 09/01/2014, Expires: | | | | | | 10/02/2015 | + +---------+--------+ + + documented as of this encounter Visit Diagnoses + + | Diagnosis | + + | Congenital hydrocephalus (HCC) - Primary Congenital hydrocephalus | + + documented in this encounter"
--- OUTSIDE RECORDS SUMMARY | ~2019-10-25 | XMS | Clinical Summary ---
Demographics + + + | Address | [address] | | | [place] [address] | + + + | Home Phone [...] Author + + + | Author | NON REVENUE LOCATIONS | + + + | Organization | NON REVENUE LOCATIONS | + + + | Address | Unknown | + + + | Phone | Unavailable | + + + Support + + + + + | Name | Relationship | Address | Phone | + + + + + | Malina Nicole | ECON | [address] | | | | | [place] | | | | | [address] | | + + + + + | Bill Corey | ECON | Unknown | | + + + + + Care Team Providers + +------+ + | Care Sales Service Promoter Name | Role | Phone | + +------+ + | Gabe Baird DO | PCP | | + +------+ + Source Comments MIRIAM is fully live on both [facility] Ambulatory and [facility] InPatient.[facility] & [facility] Allergies No Known Allergies Medications + + + +---------+------+------+-------+ | Medication | Sig | Dispensed | Refills | Star | End | Statu | | | | | | t | Date | s | | | | | | Date | | | + + + +---------+------+------+-------+ | lamoTRIgine 100 mg | Take 100 mg by mouth | | 0 | | | Activ | | Oral tablet | two times daily. | | | | | e | + + + +---------+------+------+-------+ | acetaminophen 325 | Take 2 tablets by | | 0 | 06/0 | | Activ | | mg oral tablet | mouth every six | | | 8/20 | | e | | | hours as needed | | | 17 | | | | | (pain). Not to | | | | | | | | exceed 3250 mg of | | | | | | | | acetaminophen from | | | | | | | | all products per 24 | | | | | | | | hour period. | | | | | | + + + +---------+------+------+-------+ | multivitamin oral | Take 1 tablet by | | 0 | | | Activ | | tablet | mouth once daily. | | | | | e | + + + +---------+------+------+-------+ | baclofen 10 mg | Take 1 tablet by | 30 | 3 | 01/3 | | Activ | | oral tablet | mouth once daily. | tablet | | 04/05 | | e | | | | | | 20 | | | + + + +---------+------+------+-------+ Active Problems + + + | Problem | Noted Date | + + + | Declining functional status | 08/27/2018 | + + + | Generalized weakness | 08/27/2018 | + + + | Acute cystitis without hematuria | 08/27/2018 | + + + | Acute pain of left knee | 04/09/2017 | + + + | Acute on chronic intracranial subdural hematoma | 08/17/2016 | + + + + --+ | Overview: Patient had a known small chronic SDH (stable on CT | | 07/28/2016). On 08/17, noted to be larger (6cm) secondary to | | possible overdrainage from VPS. Strata Valve was increased to 2.5 | | Repeat imaging was stable. Last Assessment & Plan: S/p AIME | | Hole placement b/l on 09/20.NSICU Goals:Neurochecks Q1HSBP<160Na: | | Eunatremia, Fluid: EuvolemiaWill keep flat x24 hours (6PM on | | 09/21), with mobilization to sit upright for ADLs/nutrition. | |Will keep flat x24 hours (6PM on 09/21), with mobilization to sit upright for ADLs/nutrition. | + --+ + + + | Seizure disorder | 08/17/2016 | + + + + + | Overview: Seizure disorder (unclear characterization, unknown | | last sz). Has a Vagal nerve stimulator since 2000, which is | | functional. Concurrently on lamotrigine. Last Assessment & | | Plan: C/w lamotrigine 100 BID | + + + + + | Blindness and low vision | 08/17/2016 | + + + + + | Overview: Near sighted vision intactFar sighted legal | | blindness Last Assessment & Plan: Outpatient management, no | | active issues. | + + + + + | At risk for electrolyte imbalance | 08/17/2016 | + + + + + | Last Assessment & Plan: - electrolyte replacement protocol | + + + + + | At risk for constipation | 08/17/2016 | + + + + + | Last Assessment & Plan: - bowel regimen | + + + + + | At risk for deep venous thrombosis | 08/17/2016 | + + + + + | Last Assessment & Plan: SCDS only. No chemical prophylaxis in | | the acute post-operative period | + + + + + | Spasticity | 07/02/2016 | + + + + + | Overview: 2/2 cerebral palsy. Moderately well controlled with | | home baclofen. Has been discussing intrathecal baclofen pump | | trial with neurosurgery. Will re-evaluate pending improvement s/p | | SDH Drainage. Last Assessment & Plan: c/w Baclofen 5mg | | Daily (confirmed with her father- administrated in AM @ | | home)Uptitrate PRN in future. 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 Delgado and team. Currently | | adjusted to Strata 2.5 due to possible over-drainage issues | | leading to SDH. Last Assessment & Plan: No acute intervention | | needed. | + + Resolved Problems + + + + | Problem | Noted | Resolved | | | Date | Date | + + + + | Preop examination | 08/25/19 | | | | 14 | 5 | + + + + Encounters +--------+ + + + + | Date | Type | Specialty | Care Team | Description | +--------+ + + + + | 10/13/ | Office | Neurological Surgery | Nolvia Delgado, | Shunt malfunction, | | 2019 | Visit | | MD | cristianela (Primary Dx) | +--------+ + + + + | 10/13/ | Hospital | Radiology | Shawnee Terrazas | | | 2019 | Encounter | | REENA Wolf | | +--------+ + + + + | 10/13/ | Travel | | | | | 2020 | | | | | +--------+ + + + + | 10/11/ | Telephone | Neurological Surgery | Nolvia Delgado, | Care Coordination | | 2020 | | | MD | | +--------+ + + + + from Last 3 Months Family History + + +------+ + | Medical History | Relation | Name | Comments | + + +------+ + | None | Other | | | + + +------+ + + +------+--------+ + | Relation | Name | Status | Comments | + +------+--------+ + | Other | | | | + +------+--------+ + Social History + +-------+ +--------+------+ | [...] | | | + + + + Last Filed Vital Signs + + + [...] Weight | 113.4 kg (250 lb) | 05/06/2019 9:46 AM | | | | | PST | | + + + + + | Height | 170.2 cm (5' 7") | 05/06/2019 9:46 AM | | | | | PST | | + + + + + | Body Mass Index | 39.16 | 05/06/2019 9:46 AM | | | | | PST | | + + + + + Plan of Treatment +--------+---------+ + + + | Date | Type | Specialty | Care Team | Description | +--------+---------+ + + + | 11/24/ | Office | Neurological Surgery | Nolvia Delgado, | | | 2019 | Visit | | [address] | | | | | | [place], [place] | | | | | | [address] | | | | | | [phone] | | | | | | | | +--------+---------+ + + + + + + + + | Health Maintenance | Due Date | Last Done | Comments | + + + + + | Influenza (Flu) | | 01/05/2019 | | | vaccination (#1) | 0 | | | + + + + + | Pneumococcal | Aged Out | | No longer eligible | | vaccination | | | based on patient's | | | | | age to complete this | | | | | topic | + + + + + Implants + +------+--------+ +--------+--------+--------+ | Implanted | Type | Area | Manufacture | Device | Shelf | Model | | | | | r | | Expira | / | | | | | | Identi | tion | Serial | | | | | | fier | Date | / Lot | + +------+--------+ +--------+--------+--------+ | Evd CathImplanted: Qty: 1 on | | Left: | | | 10/18/ | [id number] | | 03/20/2012 by Carlos Baron, | | Head | | | 2013 | 0 / | | MD at [facility] INPATIENT REV LOC | | | | | | /[id number] | | | | | | | | 7 | + +------+--------+ +--------+--------+--------+ | Catheter Bactiseal Shunt Kit | | | HAYDEN & | | 08/14/ | [id number] | | - [id number]: Qty: 1 | | | HAYDEN | | 2017 | 2 / | | on 11/08/2015 by Nathaniel Ybarra | | | CODMAN | | | /[id number] | | DMD at [facility] INPATIENT REV | | | | | | D | | LOC | | | | | | | + +------+--------+ +--------+--------+--------+ | Valve Shunt Strata Ii Csf | | | [employer]IC | | 08/14/ | [id number] | | Small 30mm Full Port 2in - | | | SOFAMOR | | 2018 | / | | [id number]: Qty: 1 on | | | TANYA | | | /[id number] | | 11/08/2015 by Nathaniel Ybarra, | | | | | | 5 | | at [facility] INPATIENT REV LOC | | | | | | | + +------+--------+ +--------+--------+--------+ | Screw Bone 4mm 1.55mm 2.55mm | | Bilate | [employer] | | | 04.503 | | Matrixneuro | | ral: | | | | .104.0 | | Craniomaxillofacial Titanium | | Head | | | | 5 / / | | Self Drill Nonsterile - | | | | | | | | [id number]: Qty: 10 | | | | | | | | on 09/20/2016 by Ashish, | | | | | | | | Nata Wolf MD at [facility] | | | | | | | | INPATIENT REV LOC | | | | | | | + +------+--------+ +--------+--------+--------+ | Cover Aime Hole .5mm 17mm | | Left: | [employer] | | | 421.52 | | Craniomaxillofacial Titanium | | Head | | | | 7 / / | | Low Profile Nonsterile - | | | | | | | | [id number]: Qty: 1 on | | | | | | | | 09/20/2016 by Nolvia Delgado | | | | | | | | MD Azul at [facility] INPATIENT REV | | | | | | | | LOC | | | | | | | + +------+--------+ +--------+--------+--------+ | Cover Aime Hole .5mm 12mm | | Right: | [facility] [place] | | | 421.52 | | Craniomaxillofacial Titanium | | Head | | | | 5 / / | | Low Profile Nonsterile - | | | | | | | | [id number]: Qty: 2 on | | | | | | | | 09/20/2016 by Ashish, | | | | | | | | Nata Wolf MD at [facility] | | | | | | | | INPATIENT REV LOC | | | | | | | + +------+--------+ +--------+--------+--------+ | Codman Certas Plus | | | CODMAN | | 09/13/ | [id number] | | Programmable ValveImplanted: | | | | | 2023 | 0PL / | | Qty: 1 on 04/23/2019 by | | | | | | /[id number] | | Nolvia Delgado MD at [facility] | | | | | | 41 | | INPATIENT REV LOC | | | | | | | + +------+--------+ +--------+--------+--------+ | Clip Internal Angled Right | | | HAYDEN & | | 04/16/ | [id number] | | Tabs Anchoring Cranial | | | HAYDEN | | 2023 | / | | Sterile - [id number]: | | | CODMAN | | | [id number] | | Qty: 1 on 04/23/2019 by | | | | | | 6 | | Nolvia Delgado MD at [facility] | | | | | | | | INPATIENT REV LOC | | | | | | | + +------+--------+ +--------+--------+--------+ Procedures + +--------+ + + + | [...] | | + +--------+ + + + from Last [address] HEAD WO CONTRAST (10/14/2019 9:41 [...] | | | right parieto-occipital approach SUPERVISOR POWDERED SUGAR shunt, unchanged in position. | | | [...] Preliminary: Franklyn Marcelo MD Dictation initiated: Franklyn Mcgarry | | MD Davian 10/14/2019 9:35 AM | | + + + + + | Procedure Note | + + | Service Account, Exo Res In Interface - 10/14/2019 11:35 AM PDT EXAM: CT HEAD | | WITHOUT CONTRAST HISTORY: concern for shunt [id number] female with past medical | | history [...] of right | | parieto-occipital approach SUPERVISOR POWDERED SUGAR shunt, unchanged in position. Redemonstration of isodense [...] | | | + +---------+ + + from Last 3 Months Insurance + +--------+ +--------+ + +--------+ | Payer | Benefi | Subscriber | Effect | Phone | Address | Type | | | t Plan | ID | tonio | | | | | | / | | Dates | | | | | | Group | | | | | | + +--------+ +--------+ + +--------+ | MEDICARE | MEDICA | xxxxxxxxxxx | 07/16/19 | [phone] | [address] | Medica | | | RE A & | | 07-Pre | 1 | [phone] | [address] | | | [address] | | sent | | [place], [place] | | | | | | | | [address] | | + +--------+ +--------+ + +--------+ | CRAFT ARTIST MEDICAID | CRAFT ARTIST | xxxxxxxx | 03/17/19 | | | Medica | | | [place] | | 19-Pre | | | id | | | [place] | | sent | | | | + +--------+ +--------+ + +--------+ + +--------+ +--------+ + + | Guarantor Name | Accoun | Relation to | Date | Phone | Billing Address | | | t Type | Patient | of | | | | | | | | | | + +--------+ +--------+ + + | Rin Casas | Person | Self | [birth year] | [address] | | | al/Fam | | 1971 | [phone] | [place] [address] | | | briana | | | 2 (Home) | | + +--------+ +--------+ + + Advance Directives + + + + + | Code Status | Date | Date | Comments | | | Activated | Inactivated | | + + + + + | Full Code | 04/23/2019 | 04/24/2019 | | | | 8:21 AM | 2:51 AM | | + + + + + +---------+ + +---+ | | | | | +---------+ + +---+ | DNR/DNI | 08/27/2018 | 08/29/2018 | | | | 8:18 AM | 8:40 PM | | +---------+ + +---+ + + + +---+ | | | | | + + + +---+ | Full Code | 04/09/2017 | 04/10/2017 | | | | 10:01 PM | 1:13 PM | | + + + +---+ + + + +---+ | | | | | + + + +---+ | Full Code | 09/20/2016 | 09/24/2016 | | | | 7:10 PM | 10:09 PM | | + + + +---+ + + + +---+ | | | | | + + + +---+ | Full Code | 08/17/2016 | 08/22/2016 | | | | 3:40 PM | 5:51 PM | | + + + +---+
--- OUTSIDE RECORDS SUMMARY | ~2019-10-25 | XMS | Encounter Summary ---
Demographics + + + | Address | [address] | | | [place] [address] | + + + | Home Phone | | + + + | Preferred Language | Unknown | + + + | Marital Status | Single | + + + | Voodoo Affiliation | NRP | + + + [...] [place] | | | | | [address] | | + + + + + | Scott Mcgarry ECON | Unknown | | + + + + + Care Team Providers + +------+ + | Care Ground Support Equipment Fitter Name | Role | Phone | + +------+ + | Patricia Stevens | PCP | | + +------+ + Reason for Referral PROC - Inpatient Surgery (Routine) +--------+--------+ + + + + | [...] | | | | s (HCC) | [place] | [place] | | | | | Procedures | [address] | [address] | | | | | REQUEST TO | Phone: | Phone: | | | | | SURGERY | [phone] | [phone] | | | | | SUPERVISOR FILM PROCESSING | Fax: | Fax: | | | | | [place] | [phone] | [phone] | | | | | VENTRICULO-C | | | | | | | ISTERNOSTOMY | | | | | | | ,3RD | | | | | | | VENT,STEREO | | | +--------+--------+ + + + + Reason for Visit + + + | Reason | Comments | + + + | Return Patient | | + + + Encounter Details +--------+---------+ + + + | Date | Type | Department | Care Team | Description | +--------+---------+ + + + | 12/01/ | Office | Neurosurgery at | Nolvia Delgado, | Obstructive | | 2015 | Visit | [facility] [address] | MD [address] | hydrocephalus | | | | Ave [facility] for | [place], [place] | (Primary Dx) | | | | Health and Healing, | [address] | | | | | [facility] | [phone] | | | | | floor [place], [place] | | | | | | [address] | | | | | | [phone] | | | +--------+---------+ + + + [...] + + + | Blood Pressure | 118/79 | 12/01/2014 11:14 AM | | | | | PDT | | + + + + + | Pulse | 81 | 12/01/2014 11:14 AM | | | | | PDT | | + + + + + | Temperature | 36.4 C (97.6 F) | 12/01/2014 11:14 AM | | | | | [...] encounter Progress Notes Nolvia Delgado MD - 12/01/2014 1:14 PM PDTFormatting of this note might be different fro m the original. Rin returns today for follow up, had an MRI, continues to have progressively worse sympto ms. Filed Vitals 09/29/2014 10:44 AM 12/01/2014 11:14 AM BP: 129/87 118/79 Pulse: 80 81 Temp: 36.3 C (97.3 F) 36.4 C (97.6 F) TempSrc: Forehead Forehead PainSc: 0 - Zero 0 - Zero NO exam change since last visit. 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 AP: A 44 years old female s/p ETV, presents with a late failure of ETV due to scarring, recomme nd redo ETV. A PARQ session was held, additional questions with discussion were completed. documented in this en counter Plan of Treatment +--------+---------+ + + + | Date | Type | Specialty | Care Team | Description | +--------+---------+ + + + | 11/24/ | Office | Neurological Surgery | Nolvia Delgado, | | | 2019 | Visit | | [address] | | | | | | [place], [place] | | | | | | [address] | | | | | | [phone] | | | | | | | | +--------+---------+ + + + documented as of this encounter Visit Diagnoses + + | Diagnosis | + + | Obstructive hydrocephalus (HCC) - Primary Obstructive hydrocephalus | + + documented in this encounter"
--- OUTSIDE RECORDS SUMMARY | ~2019-10-25 | XMS | Encounter Summary ---
Demographics + + + | Address | [address] | | | [place] [address] | + + + | Home Phone [...] Author + + + | Author | [facility] | + + + | Organization | [facility] | + + + | Address | Unknown | + + + | Phone | Unavailable | + + + Support + + + + + | Name | Relationship | Address | Phone | + + + + + | Malina Nicole | ECON | [address] | | | | | [place] | | | | | [address] | | + + + + + | Scott Mcgarry ECON | Unknown | | + + + + + Care Team Providers + +------+ + | Care Landscaping And Groundskeeping Laborer Name | Role | Phone | [...] s (HCC) | [address] [place] | | | | | Procedures | [place], [place] | Research | | | | | MRI BRAIN WO | [address] | Center | | | | | CONTRAST | Phone: | [place], [place] | | | | | | [phone] | [address] | | | | | | Fax: | Phone: | | | | | | [phone] | [phone] | | | | | | | Fax: | | | | | | | [phone] | +--------+--------+ + + + + Encounter [...] | | | Ave [facility] for | [place], [place] | | | | | Health and Healing, | [address] | | | | | [facility] , 8th | [phone] | | | | | floor [place], [place] | | | | | | [address] | | | | | | [phone] | | | +--------+ + + + [...] | | 2020 | Visit | | [address] | | | | | | [place], [place] | | | | | | [address] | | | | | | [phone] | | | | | | | [...]
--- OUTSIDE RECORDS SUMMARY | ~2019-10-25 | XMS | Encounter Summary ---
Demographics + + + | Address | [address] | | | [place] [address] | + + + | Home Phone [...] [place] | | | | | [address] | | + + + + + | Scott Nicole | ECON | Unknown | | + + + + + Care Team Providers + +------+ + | Care Enterostomal Therapy Nurse Name | Role | Phone | + +------+ + | Gabe Baird DO | PCP | | + +------+ + Encounter Details +--------+--------+ + + + | Date | Type | Department | Care Team | Description | +--------+--------+ + + + | 09/18/ | Refill | Neurosurgery at | Nolvia Delgado, | | | 2019 | | [facility] [address] | MD [address] | | | | | Ave [facility] | [place], [place] | | | | | Health and Healing, | [address] | | | | | [facility] | [phone] | | | | | floor [place], [place] | | | | | | [address] | | | | | | [phone] | | | +--------+--------+ + + + [...] [address] | | | | | | [place], [place] | | | | | | [address] | | | | | | [phone] | | | | | | | | +--------+---------+ + + + documented as of this encounter Visit Diagnoses Not on filedocumented in this encounter"
--- OUTSIDE RECORDS SUMMARY | ~2019-10-25 | XMS | Encounter Summary ---
Demographics + + + | Address | [address] | | | [place] [address] | + + + | Home Phone [...] [place] | | | | | [address] | | + + + + + | Scott Nicole | ECON | Unknown | | + + + + + Care Team Providers + +------+ + | Care Sheep Killer Name | Role | Phone | + [...] Ave | | | | | Ave [facility] | [place], [place] | | | | | Health and Healing, | [address] | | | | | [facility] | [phone] | | | | | floor [place], [place] | | | | | | [address] | | | | | | [phone] | | | +--------+--------+ + + + [...] [address] | | | | | | [place], [place] | | | | | | [address] | | | | | | [phone] | | | | | | | | +--------+---------+ + + + documented as of this encounter Visit Diagnoses Not on filedocumented in this encounter"
--- OUTSIDE RECORDS SUMMARY | ~2019-10-25 | XMS | Encounter Summary ---
Demographics + + + | Address | [address] | | | [place] [address] | + + + | Home Phone [...] [place] | | | | | [address] | | + + + + + | Scott Mcgarry ECON | Unknown | | + + + + + Care Team Providers + +------+ + | Care Mascara Molder Name | Role | Phone | + [...] | | | | | Decreased | [place], [place] | Hospital, | | | | | sensation | [address] | 10th Floor | | | | | Procedures | Phone: | [place], [place] | | | | | CT SPINE | [phone] | [address] | | | | | TOTAL W | Fax: | Phone: | | | | | CONTRAST | [phone] | [phone] | | | | | | | Fax: | | | | | | | [phone] | +--------+--------+ + + + + Diagnostic [...] | | | | | Decreased | [facility], [place] | Hospital, | | | | | sensation | [address] | 10th Floor | | | | | Procedures | Phone: | [place], [place] | | | | | X-RAY | [phone] | [address] | | | | | MYELOGRAPHY | Fax: | Phone: | | | | | 2 [place] 3 | [phone] | [phone] | | | | | REGIONS | | Fax: | | | | | SPINAL CANAL | | [phone] | | | | | W/INJECTION | | | +--------+--------+ + + + + Encounter Details +--------+ + + + + | Date | Type | Department | Care Team | Description | +--------+ + + + + | 01/21/ | Tool Maintenance Technician | Neurosurgery [address] | Nolvia Delgado, | Right sided weakness | | 2011 | | [address] | MD [address] | (Primary Dx); | | | | Physician's | [place], [place] | Spasticity; | | | | Pavilion, 2nd floor | [address] | Decreased sensation | | | | [place], [place] | [phone] | | | | | [address] | | | | | | [phone] | | | +--------+ + + + [...] [address] | | | | | | [place], [place] | | | | | | [address] | | | | | | [phone] | | | | | | | [...] | | | | | | FINDINGS: Prenatal Genetic Counselor | | | | | | films: [...] | | + +---------+ + + | [facility] DEPARTMENT OF | | | | [...] | | + +---------+ + + | [facility] DEPARTMENT OF | | | | [...] | | | | | | FINDINGS: Prenatal Genetic Counselor | | | | | | films: [...]
--- OUTSIDE RECORDS SUMMARY | ~2019-10-25 | XMS | Encounter Summary ---
Demographics + + + | Address | [address] | | | [place] [address] | + + + | Home Phone [...] Author + + + | Author | [facility] | + + + | Organization | [facility] | + + + | Address | Unknown | + + + | Phone | Unavailable | + + + Support + + + + + | Name | Relationship | Address | Phone | + + + + + | Malina Nicole | ECON | [address] | | | | | [place] | | | | | [address] | | + + + + + | Scott Mcgarry ECON | Unknown | | + + + + + Care Team Providers + +------+ + | Care Cook Cold Meat Name | Role | Phone | + [...] | | | | | Procedures | [place], [place] | Research | | | | | MRI BRAIN WO | [address] | Center | | | | | CONTRAST | Phone: | [facility] [place] | | | | | | [phone] | [address] | | | | | | Fax: | Phone: | | | | | | [phone] | [phone] | | | | | | | Fax: | | | | | | | [phone] | +--------+--------+ + + + + Encounter Details +--------+ + + + + | Date | Type | Department | Care Team | Description | +--------+ + + + + | 07/15/ | Hospital | Diagnostic Imaging | | | | 2012 | Encounter | Services at [facility] | | | | | | [address] | | | | | | [place] | | | | | | Research Center | | | | | | [place], [place] | | | | | | [address] | | | | | | [phone] | | | +--------+ + + + [...] [address] | | | | | | [place], [place] | | | | | | [address] | | | | | | [phone] | | | | | | | [...]
--- OUTSIDE RECORDS SUMMARY | ~2019-10-25 | XMS | Encounter Summary ---
Demographics + + + | Address | [address] | | | [place] [address] | + + + | Home Phone [...] [place] | | | | | [address] | | + + + + + | Scott Mcgarry ECON | Unknown | | + + + + + Care Team Providers + +------+ + | Care Mainspring Torque Tester Name | Role | Phone | + [...] + + | 11/05/ | Hospital | [facility] [address] | [place], | | | 2016 - | Encounter | [address] | MD Cameron [address] | | | | | [id number] [facility] | [address] | | | 11/08/ | | H[facility] [place], | [place], [place] | | | 2016 | | [place] [address] | [address] | | | | | [phone] | [phone] | | | | | | | | | | | | Than, Nathaniel D, MD | | | | | | [address] | | | | | | [place], [place] | | | | | | [address] | | | | | | [phone] | | | | | | | [...] Nathaniel Ybarra MD PCP: REENA Gusman Service: [facility] Neurosurgery Diagnoses Principal Final Diagnosis: Hydrocephalus. [...] Discharge Good Follow Up Follow up at [facility], [facility], 8th Floor, [address] [place] [address]; . You will be contacted to make [...] 9:59 AM Discharging Attending: Nathaniel Ybarra MD [facility] [address] [address] [address] documented in t his encounter [...] ml Net 1415 ml Labs CULTURE, URINE [facility] Status: Final result Visible to patient: Not Released Next appt: None Normal Culture Mixed Patrica, Likely Contamination Multiple Organisms are present indicating probable contamination or colonization not relate d to infection. Further work-up of these organisms may result in misleading information due to low numbers and/or mixture of organisms present. Recollection is suggested if clinically indicated. Resulting Agency: [facility] CORE LAB Specimen Collected: 11/07/15 8:07 [...] clinic 2 weeks post op. REENA Hart-C [facility] [address] [address] [address] Pg [phone] Associated attestation - Nathaniel Ybarra MD - 11/09/2015 1:02 PM PDTI have personally perfor med a face to face diagnostic evaluation on this patient. I have reviewed and agree with the care plan. History and Exam by me shows: 45 yo F POD 1 s/p NECK BAND SETTER shunt. Pt states symptoms are improved. At neuro baseline. Imaging appropriate. D/C home today. Nathaniel Ybarra MD [facility] [address] [address] [address] Jason Pappas MD - 11/08/2015 1:07 PM [...] in bed Jason Pappas MD Neurosurgery PGY2 [id number] Jason Gonsales MD - 11/07/2015 8:08 PM [...] to be com pleted. Jeannine Pelayo PA-C [facility] [address] [address] [place] [phone] documented in th is encounter Plan of Treatment +--------+---------+ + + + | Date | Type | Specialty | Care Team | Description | +--------+---------+ + + + | 11/24/ | Office | Neurological Surgery | Nolvia Delgado, | | | 2019 | Visit | | [address] | | | | | | [place], [place] | | | | | | [address] | | | | | | [phone] | | | | | | | [...] | + +---------+ + + | [facility] DEPARTMENT OF | | | | [...] | + +---------+ + + | [facility] DEPARTMENT OF | | | | | RADIOLOGY | | | | + +---------+ + + PROCEDURE NOTE (11/08/2015 6:30 PM PDT)OPERATION RECORD (11/08/2015 1:20 PM PDT) + + | Transcriptions | + + | Nathaniel Ybarra MD - 11/08/2015 12:57 PM PDT Date of Service: 11/08/2015 Attending | | Surgeon: Nathaniel Ybarra MD [place](s): Ronald Alarcon MD, PhD | | Preoperative [...] was placed in a Kang horseshoe head batcher. Her | | cranial incision was planned 3 fingerbreadths above the inion and 3 fingerbreadths over | | to the right of midline. The cranial incision was semilunar in shape. Her abdominal | | incision was prepared 3 fingerbreadths below the rib cage. These incisions were shaved. | | [employer] navigation was used for stereotaxy. Her cranium was registered with the | | Dream[employer] system. The operative area was then prepped [...] catheter was passed with the assistance of [employer]. We | | intended to pass the [...] 11/08/2015 11:49:29DT: 11/08/2015 | | 12:57:35Job #: [id number]: Nolvia Delgado MD | + + PROCEDURE [...] Placement | | | of R occipital NECK BAND SETTER shunt 2. Programming of strata valve to [...] + + + + | [facility] | [address] | [place] [address] | | | SERVICES, CORE | PARK [...] | + + + + + | [facility] | [address] [facility] | [place] [address] | | | SERVICES, CORE | HAYDEE [...] Buckner | | | | | | AKT 11/07/2015 12:42 | | | | | [...] | + +---------+ + + | [facility] DEPARTMENT OF | | | | [...] | + + + + + | [facility] | [address] | [place] [address] | | | SERVICES, CORE | HAYDEE [...] | | | LABORATORY | | | BR[facility] | | | SERVICES, | | | [...] | + + + + + | [facility] | [address] | [place] [address] | | | SERVICES, CORE | HAYDEE [...] | + +---------+ + + | [facility] DEPARTMENT OF | | | | [...] + + + + | [facility] | [address] | [place] [address] | | | JUANA, RYNE | HAYDEE [...] | + + + + + | [facility] | [address] | [place] [address] | | | SERVICES, RYNE | HAYDEE [...] | + + + + + | [facility] | [address] | [place] [address] | | | SERVICES, CORE | HAYDEE [...] [facility] | [address] | [place] [address] | | | SERVICES, CORE | PARK [...] + + + + | [facility] | [address] | [place] [address] | | | SERVICES, | [address] [...] [facility] | [address] | [place] [address] | | | SERVICES, | [address] [...] | + + + + + | [facility] | [address] | [place] [address] | | | SERVICES, | [address] [...] | + + + + + | [facility] | [address] [facility] | [place] [address] | | | SERVICES, CORE | PARK [...] [facility] | [address] | [place] [address] | | | SERVICES, CORE | PARK [...] | | | LABORATORY | | | BRUNEIAN | | | SERVICES, | | | [...] + + + + | [facility] | [address] | [place] [address] | | | RYNE ARIAS | HAYDEE [...] | | | | at 0015, Until [facility] 11/09/15 at | | | | | [...]
--- OUTSIDE RECORDS SUMMARY | ~2019-10-25 | XMS | Encounter Summary ---
Demographics + + + | Address | [address] | | | [place] [address] | + + + | Home Phone [...] | Author | [facility] | + + + | Organization | [facility] | + + + | Address | Unknown | + + + | Phone | Unavailable | + + + Support + + + + + | Name | Relationship | Address | Phone | + + + + + | Malina Nicole | ECON | [address] | | | | | [place] | | | | | [address] | | + + + + + | Scott Nicole | ECON | Unknown | | + + + + + Care Team Providers + +------+ + | Care Can Carrier Name | Role | Phone | + [...] Description | +--------+---------+ + + + | 03/16/ | Office | Preoperative | Clarisse Garcia | Hydrocephalus | | 2011 | Visit | Medicine Clinic at | [facility], [facility] | (Primary Dx); | | | | [facility] 4th Floor Day | | Seizure ([facility]); | | | | Stay [address] | | Cerebral palsy | | | | [address] | | ([facility]); Other | | | | Mailcode: [id number] | | specified | | | | [facility] | | pre-operative | | | | [address], [place] | | examination | | | | [address] | | | | | | [phone] | | | +--------+---------+ + + + Anesthesia Record + + [...] | | | 7 | | reviewed, PARLaura held, anesthetic plan made or approved by [...] Left, Frontal | RN | | | Lynne | | | | | er | | | | +--------+ + + + | RETIRE | 03/20/12; 0630; 03/22/12; 050; | 03/20/12629 by | 03/22/12501 by | | D - | 20; [...] | 03/23/12; 0859; No; 18; Right; | 03/20/12 08 by | 03/23/12 0859 by | | D - | Hand | | Gladis Hunt RN | | Periph | | | | | eral | | | | | Line | | | | +--------+ + + + | RETIRE | 03/20/12; 837; Left:; parietal | 03/20/12 0838 by | 03/24/12 1135 by | | D - | region; 03/24/12; 113 | Bel Lorenzo RN | Jaimee Parker, | | Incisi | | | RN | | on | | | | [...] + + +---------+ + | Yes | 2 Standard drinks | 1.7 | | | | or equivalent | | | + + +---------+ + [...] + + + | Blood Pressure | 135/75 | 03/16/2012 8:36 AM | | | | | PST | | + + + + + | Pulse | 64 | 03/16/2012 8:36 AM | | | | | PST | | + + + + + | Temperature | 36 C (96.8 F) | 03/16/2012 8:36 AM | | | | | PST | | + + + + + | Respiratory Rate | 14 | 03/16/2012 8:36 AM | | | | | PST | | + + + + + | Oxygen Saturation | 99% | 03/16/2012 8:36 AM | | | | | PST | | + + + + + | Inhaled Oxygen | - | - | | | Concentration | | | | + + + + + | Weight | 94.8 kg (209 lb) | 03/16/2012 8:36 AM | | | | | PST | | + + + + + | Height | 175.3 cm (5' 9") | 03/16/2012 8:36 AM | neck 41 .5 cm | | | | PST | | + + + + + | Body Mass Index | 30.86 | 03/16/2012 8:36 AM | | | | | PST | | + + + + + documented in this encounter Patient Instructions Patient Instructions Clarisse Garcia FNP - 03/16/2012 8:57 AM PST PREOPERATIVE INSTRUCTIONS Empty stomach before surgery! On the day BEFORE your surgery, drink plenty of fluids and stay well hydrated Do not eat or drink ANYTHING after midnight the night before surgery, or 8 hours prior t o surgery. This includes water, coffee, candy, mints, gum. Medications Instructions TAKE the following medications with a sip of water on the morning of surgery: lamotrigine Unless otherwise directed by your surgeon, do not take any Aspirin, vitamin E or non-jamie roidal anti-inflammatory (NSAIDs i.e. Advil, Aleve, Ibuprofen) or herbal supplements 7-14 da ys prior to your surgery. These drugs may interfere with normal blood clotting and may cause excessive bleeding and bruising during or after the surgery. If you are taking Coumadin (warfarin), Plavix or any other blood thinners please let you r surgical team know as medication changes may be necessary. If you need a pain medication for general purposes, use Tylenol as directed. OK to take it even on the morning of surgery, if needed. If you are in doubt about any medications that you are taking, please contact our office . Skin preparation to help avoid surgical site infections On the morning of surgery, do not shave the area of skin where you will have surgery HIBICLENS GUIDE TO GENERAL SKIN CLEANSING AT HOME BEFORE SURGERY -- ONLY needed for p atients having surgical intervention below the neck! General Skin Cleansing Instructions: Hibiclens is not to be used on the head or face, keep out of the eyes, ears and mouth. Hibiclens is not to be used in the genital area. If this is the first time using Hibiclens, please perform an allergy test by placing 1-2 drops of soap on your forearm. Observe this area for 4-5 minutes. If you develop a rash, pl ease DO NOT use this product. Please inform the preop team on the morning of surgery so that this product is NOT used during your surgery. *See Hibiclens label for full product information and precautions. When you bathe or shower the night before your surgery: If you plan to wash your hair, do so with your regular shampoo. Then rinse hair and body thoroughly to remove any shampoo residue. Wash your face with your regular soap or water only. Thoroughly rinse your body with warm water from neck down. Then use Hibiclens as you would any other liquid soap. Apply directly to the skin and wa sh gently. Apply the minimum amount of Hibiclens necessary to cover the skin. Leave the Hib iclens on your skin for 1 minute, then rinse off. Rinse thoroughly with warm water. Towel dry with a clean towel. Dress in clean sleepwear and sleep on freshly laundered sheets. When using Hibiclens for a second day in a row (morning of surgery, as soon as you wake up) : Shower/bathe again using Hibiclens in the same method as described above and wear freshl y laundered clothes. Do not apply any lotions, deodorants, powders or perfumes to the body areas that have be en cleaned with Hibiclens. Preventing post op complications while you are [...] ur legs. Sometimes your doctor will order air compression stockings. Compressed air helps the circulation in your legs. Walking and moving will help stimulate normal circulation and deep breathing. After you r surgery, your nurse may ask you to sit, stand or walk. Other Important Guidelines Do not shave the surgical area Do not smoke, drink alcohol or use recreational drugs for 24 hours before your surgery Watch for any change in your health condition. Let your surgeon know right away if you do not feel well. Do not wear makeup, perfume, lotions, deodorant, [...] product bef ore your arrival at the hospital. Please remember to brush your teeth the night before and the morning of your procedure. Surgery Check in Locations Admitting [facility], [facility] Surgery Check in Time: The Preoperative Medicine Clinic is NOT in the position to give you accurate information regarding surgical check in time. We refer you back to your surgical office regarding this important information. Going Home Your surgical team will decide when you are medically ready to go home. If you stayed in the hospital after surgery, please arrange for your ride to come for yo u around 9AM on the day your doctor says you can go home. Check out time is 11AM. If you have questions or concerns after you go home, call your doctor s office. If it is after office hours, call the [facility] candy wrapping machine operator at [phone] and ask them to page documented in this encounter Progress Notes Primo Palma MA - 03/16/2012 9:14 AM PST Venipuncture performed in clinic, blood sample obtained from Left antecubital site Electron ically signed by Primo Palma MA at 03/16/2012 9:14 AM Clarisse Whalen FNP - 03/16/2012 9:06 AM PST PREOPERATIVE CONSULT NOTE Consulting Provider: SARAH HARDY Referring Physician: Dr Delgaod Primary Care Provider: REENA Ayala Reason for Consult: Preoperative evaluation and risk assessment Proposed Procedure/Date: stealth-guided endoscopic third ventriculostomy with EVD, 03/20/11 HISTORY OF PRESENT ILLNESS: Rin Casas is a 41 y.o. female here for preoperative evalu ation for above procedure. Pt has dx of mild congenital hydrocephalus not treated with CHILDR[employer]RARIAN shunt characterized by incre asing loss of coordination over the past 1.5 yrs including fine motor and decreased ability to walk. PMH significant for mild cerebral palsy and seizures She has no hx nor symptoms of CAD, CHF, CVA, CKD or DM (treated with insulin). Functional capacity is Low ROS: 12 system ROS Preoperative Patient Questionnaire was reviewed with the patient. Pert inent positives are noted in HPI and PMHX. Document will be scanned in MymCart. Current Medication List Name Sig LAMOTRIGINE 100 MG TABLET Take 100 mg by mouth two times daily. MULTIVITAMIN ORAL Take by mouth. VITAMIN B COMPLEX ORAL Take by mouth. No Known Allergies Past Medical History Diagnosis Date Epilepsy, partial Cerebral palsy Spastic quadriparesis H/O hydrocephalus S/P placement of VNS (vagus nerve stimulation) device 2000 Seizures Legally blind Past Surgical History Procedure Date Vns implant 2000 Family History No known anesthesia problems History Substance Use Topics Smoking status: Never Smoker Smokeless tobacco: Never Used Alcohol Use: 1.0 oz/week 2 drink(s) per week PHYSICAL EXAM: Last Vitals: BP 135/75 | Pulse 64 | Temp (Src) 36 C (96.8 F) (Oral) | RR 14 | Ht 1.753 m (5' 9") | Wt 94.802 kg (209 lb) | SpO2 99% | BMI 30.86 kg/(m^2) Body mass index is 30.86 k g/(m^2). [facility] ROS Last edited 03/16/12904 by SARAH Mark ROS Pulmonary: Within Defined Limits except as noted below no cough no shortness of breath no wheezing Pt. Has no asthma No dx of sleep apnea sleep apnea Neck circumference> 40 cm Pt at low risk of MARLYS Cardiovascular: Works out on exercyle daily Within Defined Limits except as noted below Functional Capacity: Moderate - chest pressure and syncope no CAD no CHF no pacemaker GI/Hepatic: Within Defined Limits except as noted below no GI Bleed no GERD No liver disease no hepatitis : Within Defined Limits except as noted below Endo: Within Defined Limits except as noted below Neurological: Declining coordination X 1.5 yrs related to hydrocephalus. Hx closed head injury several yrs ago and subsequent onset petit mal seizures, vagal nerve stimulator placed but has not needed to use magnet as seizures well controlled on lamotrigine. Mild cerebral palsy. Prior to loss of coordination was ambulatory. Legally blind, able to watch TV and read large print books. Within Defined limits except as noted below no seizures no HX CORTICOSTEROID no psychiatric problem no dementia MS: Limited ROM ankles related to CP. Within Defined Limits except as noted below no arthritis Heme/Onc: Within Defined Limits except as noted below Pt. has: no active bleeding no Bleeding diathesis / thrombotic bleeding Malignancy: no cancer, Location: Metastasis: Skin: Within Defined Limits except as noted below No open wounds or sores No hx MRSA/VRE/Active skin infection Physical Exam General: Patients general appearance: Healthy, Alert and No distress Head & Neck/Airway: Neck ROM: full Neck Circumference: 41.5 cm. TM Distance:> 6cm Dentition: dentition is normal Mallampati: II Mouth Opening: > = 3 cm C-Spine: normal Neck Anatomy: Normal Lung Exam: breath sounds normal Cardiac: No murmur, rubs or gallop Rhythm: regular Rate: normal Abdominal: General Findings: Deferred Musculoskeletal: Findings: tone normal Neuro/Psych: alert Findings: Normal gait and station, No tremor, Alert, oriented to person, place, time and Normal affect Integument: - lesion, rash and open wounds Color: pink Texture: Skin texture - normal Implants: Comments: VNS stimulator, reports on but not using magnet to control seizures (controlled on lamotrigine) LAB DATA REVIEWED/ORDERED CBC, BMP, T&S drawn, results pending MEDICAL DECISION MAKIN ACC/ AHA Perioperative Guidelines 1. Need for emergency noncardiac surgery? b. No -> Proceed to next step. 2. Active Cardiac Conditions? These conditions mandate further investigation and manageme nt. A. Acute NH within 7 days: no B. Unstable angina/Recent NH (7- 30 days): no C. Decompensated CHF: no D. Significant arrhythmia: None E. Severe valvular disease: NONE 3. Low risk surgery? b. No -> proceed with next step. 4. Good functional capacity? MET ASSESSMENT: 4. METS--light yard work (raking leaves, we eding, or pushing a power mower). 5. Assess Clinical Risk Factors? A. Ischemic heart disease: no B. Compensated / prior heart failure: no C. Diabetes mellitus (treated with insulin): no D. Renal insufficiency (Cr > 2): no E. Cerebrovascular disease: no Rate of cardiac , non fatal NH, non fatal cardiac arrest (RCRI) 0 risk factors - 0.4% 1 risk factors - 1%, 2 risk factors - 7%, 3 or >risk factors - 11% (may benefit from perioperative beta blockers) Risk Factor Recommendations: 0 risk factors- proceed with planned surgery Surgery Risk: Intermediate Patient-related risk: Estimated ASA class -- 2 ASSESSMENT and RECOMMENDATIONS: Surgical/anesthesia risk assessment: Rin Casas is a 41 y.o. female with diagnosis of hydrocephalus, scheduled for stealth-guided endoscopic third ventriculostomy with EVD. A ccording to ACC/AHA, this patient has no clinical risk factors and the recommendation is to proceed with planned surgery without additional cardiac testing. Medication management recommendations: The patient was advised to continue all usual med ications except as noted in Patient Instructions (After Visit Summary given to pt) Perioperative antibiotic prophylaxis: Standard (Consider IV Vanco one hr before procedu re in pts with Cephalosporin/PCN allergy and/or with hx of MRSA) Seizures, stable take lamotrigine as usual on am of surgery Bring magnet for VNS to hospital This patient is medically stable for surgery. Further testing/optimization is not needed. Thank you for the opportunity to contribute to this patient's care. SARAH HARDY [facility] [address] [facility] [address] [phone] signed by SARAH Mark at 03/16/2012 9:13 AM Sharon mented in this encounter Plan of Treatment +--------+---------+ + + + | Date | Type | Specialty | Care Team | Description | +--------+---------+ + + + | 11/24/ | Office | Neurological Surgery | Nolvia Delgado, | | | 2019 | Visit | | [address] | | | | | | [place], [place] | | | | | | [address] | | | | | | [phone] | | | | | | | [...] for this | | | e | 12:08 AM | | procedure are in the | | | | PST | | results section. | + +--------+ + + + | TYPE AND SCREEN | Routin | 03/16/2012 | Hydrocephalus | Results for this | | | e | 10:48 AM | Other specified | procedure are in the | | | | PST | pre-operative | results section. | | | | | examination | | + +--------+ + + + | AL COLLECTION VENOUS | Routin | 03/16/2012 | Other specified | | | BLOOD,VENIPUNCTURE | e | 9:14 AM | pre-operative | | | | | PST | examination | | + +--------+ + + + | CBC ONLY | Routin | 03/16/2012 | Hydrocephalus | Results for this | | | e | 9:06 AM | Other specified | procedure are in the | | | | PST | pre-operative | results section. | | | | | examination | | + +--------+ + + + | BASIC METABOLIC SET | Routin | 03/16/2012 | Hydrocephalus | Results for this | | (NA, K, CL, TCO2, | e | 9:06 AM | Seizure (HCC) Other | procedure are in the | | BUN, CR, GLU, CA) | | PST | specified | results section. | | | | | pre-operative | | | | | | examination | | + +--------+ + + + | CBC ONLY | Routin | 03/16/2012 | Hydrocephalus | Results for this | | | e | 9:06 AM | Other specified | procedure are in the | | | | PST | pre-operative | results section. | | | | | examination | | + +--------+ + + + | ANTIBODY SCREEN | Routin | 03/16/2012 | Hydrocephalus | Results for this | | | e | 9:06 AM | Other specified | procedure are in the | | | | PST | pre-operative | results section. | | | | | examination | | + +--------+ + + + | ABO & RH TYPE | Routin | 03/16/2012 | Hydrocephalus | Results for this | | | e | 9:06 AM | Other specified | procedure are in the | | | | PST | pre-operative | results section. | | | | | examination | | + +--------+ + + + documented in this encounter Results PROCEDURE NOTE (04/21/2015 12:08 AM PST) + + | Transcriptions | + + | Other, Faculty - 03/18/2012 1:36 PM PST | + + CBC (03/16/2012 9:06 AM PST) + +-------+ + + + | Component | Value | Ref Range | Performed | Pathologist | | | | | At | Signature | + +-------+ + + + | WHITE CELL | 10.3 | 4.4 - 11.0 K/cu | [facility] | | | COUNT | | mm | LABORATORY | | | | | | SERVICES, | | | | | | CORE | | + +-------+ + + + | RED CELL | 4.63 | 4.00 - 5.20 | [facility] | | | COUNT | | M/cu mm | LABORATORY | | | | | | SERVICES, | | | | | | CORE | | + +-------+ + + + | HEMOGLOBIN | 14.8 | 12.0 - 16.0 | [facility] | | | | | g/dL | LABORATORY | | | | | | SERVICES, | | | | | | CORE | | + +-------+ + + + | HEMATOCRIT | 43.6 | 36.0 - 46.0 % | [facility] | | | | | | LABORATORY | | | | | | SERVICES, | | | | | | CORE | | + +-------+ + + + | MCV | 94.2 | 80.0 - 96.0 fL | [facility] | | | | | | LABORATORY | | | | | | SERVICES, | | | | | | CORE | | + +-------+ + + + | MCHC | 33.9 | 33.4 - 35.5 | [facility] | | | | | g/dL | LABORATORY | | | | | | SERVICES, | | | | | | CORE | | + +-------+ + + + | RDW | 13.6 | 11.5 - 15.0 % | [facility] | | | | | | LABORATORY | | | | | | SERVICES, | | | | | | CORE | | + +-------+ + + + | PLATELET | 253 | 150 - 400 K/cu | [facility] [...] | + + + + + | [facility] | [address] | [place] [address] | | | SERVICES, CORE | [address] | | | + + + + + ANTIBODY SCREEN (03/16/2012 9:06 AM PST) + + + + + [...] [facility] | [address] | [place] [address] | | | SERVICES, | [address] | | | | TRANSFUSION MEDICINE | | | | + + + + + ABO & RH TYPE (03/16/2012 9:06 AM PST) + + + + + [...] + | [facility] | [address] | [place] [address] | | | SERVICES, | [address] | | | | TRANSFUSION MEDICINE | | | | + + + + + BASIC METABOLIC SET (NA, K, CL, TCO2, BUN, CR, GLU, CA) (03/16/2012 9:06 AM PST) + +---------+ + + + [...] +---------+ + + + | CREATININE | 0.87 | 0.60 - 1.10 | [facility] | | | PLASMA | | mg/dL | LABORATORY | | | (LAB) | | | SERVICES, | | | | | | CORE | | + +---------+ + + + | EGFR | >60 | mL/min | [facility] | | | - | | | LABORATORY | | | GREEK | | | SERVICES, | | | | | | CORE | | + +---------+ + + + | EGFR NON | >60 | mL/min | [facility] | | | -MONTY [...] | + + + + + | [facility] | [address] | [place] [address] | | | SERVICES, CORE | [address] | | | + + + + + documented in this encounter Visit Diagnoses + + | Diagnosis | + + | Hydrocephalus (HCC) - Primary Obstructive hydrocephalus | + + | Seizure (HCC) Other convulsions | + + | Cerebral palsy (HCC) Infantile cerebral palsy, unspecified | + + | Other specified pre-operative examination | + + documented in this encounter
--- OUTSIDE RECORDS SUMMARY | ~2019-10-25 | XMS | Encounter Summary ---
Demographics + + + | Address | [address] | | | [place] [address] | + + + | Home Phone | | + + + | Preferred Language | Unknown | + + + | Marital Status | Single | + + + | Mosque Affiliation | NRP | + + + [...] [place] | | | | | [address] | | + + + + + | Scott [place] | ECON | Unknown | + | + + + + + Care Team Providers + +------+ + | Care Nursing Services Manager Name | Role | Phone | + +------+ + | Gabe Baird | PCP | | + +------+ + Encounter Details +--------+--------+ + + + | Date | Type | Department | Care Team | Description | +--------+--------+ + + + | 04/23/ | Travel | | | | | [...] 2019 | Visit | | MD [address] | | | | | | [place], [place] | | | | | | [address] | | | | | | [phone] | | | | | | | | +--------+---------+ + + + documented as of this encounter Visit Diagnoses Not on filedocumented in this encounter"
--- OUTSIDE RECORDS SUMMARY | ~2019-10-25 | XMS | Encounter Summary ---
Demographics + + + | Address | [address] | | | [place] [address] | + + + | Home Phone [...] Author + + + | Author | [facility] | + + + | Organization | [facility] | + + + | Address | Unknown | + + + | Phone | Unavailable | + + + Support + + + + + | Name | Relationship | Address | Phone | + + + + + | Malina Nicole | ECON | [address] | | | | | [place] | | | | | [address] | | + + + + + | Scott Mcgarry ECON | Unknown | | + + + + + Care Team Providers + +------+ + | Care Plan Coordinator Name | Role | Phone | [...] | | | | | Procedures | [place], [place] | Research | | | | | MRI BRAIN [place] | [address] | Center | | | | | CONTRAST | Phone: | [place], [place] | | | | | | [phone] | [address] | | | | | | Fax: | Phone: | | | | | | [phone] | [phone] | | | | | | | Fax: | | | | | | | [phone] | +--------+--------+ + + + + Reason [...] Dx) | | | | Physician's | [place], [place] | | | | | [facility], 2nd floor | [address] | | | | | [place], [place] | [phone] | | | | | [address] | | | | | | [phone] | | | +--------+---------+ + + + [...] x 3, PERRL, Motor Delt Bicep Tricep Correspondence Review Clerk Intrinsic RUE 4+ 5 5 4 3 [...] plan REENA [facility] [address] [facility] Mailcode: [id number] [place] [address] documented in t his encounter [...] [place] | | | | | | [address] | | | | | | [phone] | | | | | | | [...]
--- OUTSIDE RECORDS SUMMARY | ~2019-10-25 | XMS | Encounter Summary ---
Demographics + + + | Address | [address] | | | [place] [address] | + + + | Home Phone [...] [place] | | | | | [address] | | + + + + + | Scott Nicole | ECON | Unknown | + | + + + + + Care Team Providers + +------+ + | Care Web Search Evaluator Name | Role | Phone | + [...] [address] | | | | | | [place], [place] | | | | | | [address] | | | | | | [phone] | | | | | | | | +--------+---------+ + + + documented as of this encounter Visit Diagnoses Not on filedocumented in this encounter"
--- OUTSIDE RECORDS SUMMARY | ~2019-10-25 | XMS | Encounter Summary ---
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 [place] | | chronic subdural | | | | [address] | | hematomas (dos: 7) | | | | [phone] | | | +--------+ + + + [...] [address] | | | | | | [place], [place] | | | | | | [address] | | | | | | [phone] | | | | | | | | +--------+---------+ + + + documented as of this encounter Visit Diagnoses Not on filedocumented in this encounter"
--- OUTSIDE RECORDS SUMMARY | ~2019-10-25 | XMS | Encounter Summary ---
Demographics + + + | Address | [address] | | | [place] [address] | + + + | Home Phone | | + + + | Preferred Language | Unknown | + + + | Marital Status | Single | + + + | Protestant Affiliation | NRP | + + + [...] [place] | | | | | [address] | | + + + + + | Scott Nicole | ECON | Unknown | | + + + + + Care Team Providers + +------+ + | Care Chicken Handler Name | Role | Phone | + [...] s ([facility]) | [place], [place] | | | | | | Procedures | [address] | | | | | | CT HEAD WO | Phone: | | | | | | CONTRAST | [phone] | | | | | | | Fax: | | | | | | | [phone] | | +--------+--------+ + + + + [...] s ([facility]) | [place], [place] | | | | | | Procedures | [address] | | | | | | CT HEAD WO | Phone: | | | | | | CONTRAST | [phone] | | | | | | | Fax: | | | | | | | [phone] | | +--------+--------+ + + + + [...] | | [facility] | [place], [place] | | | | | Health and Healing, | [address] | | | | | [address] | [phone] | | | | | Floor [place], [place] | | | | | | [address] | | | | | | [phone] | | | +--------+ + + + [...] Tracy | | | | | | [place], [place] | | | | | | [address] | | | | | | [phone] | | | | | | | [...] CT HEAD WITHOUT CONTRAST HISTORY: Interval surveillance EYE CARE PROFESSIONAL | [facility] | | shunt function COMPARISON: [...] Note | + + | Service Account, Feed.fm Res In Interface - 01/08/2018 12:18 PM PDT EXAM: CT HEAD | | WITHOUT CONTRAST HISTORY: Interval surveillance EYE CARE PROFESSIONAL shunt function COMPARISON: | | 08/28/2017 TECHNIQUE: [...]
--- OUTSIDE RECORDS SUMMARY | ~2019-10-25 | XMS | Encounter Summary ---
Demographics + + + | Address | [address] | | | [place] [address] | + + + | Home Phone [...] + + + | Author | [facility] | + + + | Organization | [facility] | + + + | Address | Unknown | + + + | Phone | Unavailable | + + + Support + + + + + | Name | Relationship | Address | Phone | + + + + + | Malina Nicole | ECON | [address] | | | | | [place] | | | | | [address] | | + + + + + | Scott Nicole | ECON | Unknown | | + + + + + Care Team Providers + +------+ + | Care Oxygen Therapist Name | Role | Phone | + [...] | | | | | Procedures | [address] | [address] | | | | | CONSULT TO | Phone: | Phone: | | | | | ORTHOPEDICS | [phone] | [phone] | | | | | AND | Fax: | Fax: | | | | | REHABILITATI | [phone] | [phone] | | | | | ON | [...] + + | 04/09/ | Emergency | [facility] Emergency | Pascual Gandhi, | | | 2018 - | | Department [address] | [address] | | | | | [address] | [address] | | | 04/10/ | | [facility] | [place], [place] | | | 2018 | | [place], [place] | [address] | | | | | [address] | [phone] | | | | | [phone] | | | | | | | Jonatan Sams FNP | | | | | | [address] | | | | | | [address] | | | | | | [place], [place] | | | | | | [address] | | | | | | [phone] | | | | | | | | | | | | Hussein Resendez, | | | | | | KASSIDY [address] | | | | | | [facility] [address] [facility] [address] | | | | | | [place], [place] | | | | | | [address] | | | | | | [phone] | | | | | | | | | | | | Angie Can, | | | | | | PA-C [address] | | | | | | [facility] [address] | | | | | | [place], [place] | | | | | | [address] | | | | | | [phone] | | | | | | | [...] a PMH of CP with Hydrocephalus s/p WARP KNITTER shunt c/b Se izure Disorder who presented [...] AM and took her back home to [place] as planned. Consults: None Pertinent Exam Findings [...] 0.64 0.60 - 1.10 mg/dL EGFR - TANZANIAN >60 >60 mL/min EGFR NON -TANZANIAN >60 >60 mL/min SODIUM, PLASMA (LAB) 135 [...] - 04/09/2017Thank you for coming to the [facility] Emergency Depa rtment. You were seen in [...] through Care Everywhere.Knee Pain or In jury (Eritrean)documented in this encounter Medications at Time of [...] Osvaldo Pritchett MD, PhD PGY-3 Resident Neurosurgery [id number] signed by Osvaldo Pritchett at 04/09/2017 6:29 PM PSTdocumented in this en counter Plan of Treatment +--------+---------+ + + + | Date | Type | Specialty | Care Team | Description | +--------+---------+ + + + | 11/24/ | Office | Neurological Surgery | Nolvia Delgado, | | | 2019 | Visit | | [address] | | | | | | [place], [place] | | | | | | [address] | | | | | | [phone] | | | | | | | [...] DEPT OF | [address] | [place], [place] | | | CARDIOLOGY | [address] | [address] | | + + + + + [...] + + + + | [facility] | [address] | [place] [address] | | | SERVICES, CORE | HAYDEE [...] | | | LABORATORY | | | TANZANIAN | | | SERVICES, | | | [...] + + + + | [facility] | [address] | [place] [address] | | | SERVICES, CORE | [address] | | | + + + + + ED INFORMATION EXCHANGE (04/09/2017 2:32 PM PST) + + | Specimen | + + | | + + + + + | Narrative | Performed At | + + + | [id number] This patient has registered at the | [facility] | | [facility] Emergency Department For more | MEDICAL | | information visit: | TECHNOLOGIES | | [email or web address] | | | [id number] ED Care Guidelines There are currently no ED Care Guidelines | | | in MADDIE for this patient. Please check your facility's medical | | | records system. Recent Emergency Department Visit Summary Admit | | | Date Facility City State Type Major Type Diagnoses or Chief Complaint | | | Apr 09, 2017 [facility] [place] | | | Emergency Emergency Mar 29, 2017 [facility] [place]. [place] | | | Emergency Emergency OTHER AND UNSPECIFIED OVREXRTN [place] | | | STRNOUS MOVE/PST Other assisted (current) drug therapy | | | Pain in left knee OTHER SPECIFIED POSTPROCEDURAL STATES | | | Sprain of unspecified site of left knee, initial encounter | | | Presence of cerebrospinal fluid drainage device Recent | | | Inpatient Visit Summary No recorded inpatient visits. E.D. Visit | | | Count (12 mo.) Facility Visits [facility] | | | [address] 4 Total 6 Note: Visits | [...] for | | | additional information. 2018 [facility] - | | | [place], [place] - | | + + + + + | Procedure Note | + + | Service Account, Rtf Results Inbound - 04/09/2017 2:34 PM PST Formatting of this | | note might be different from the original.MADDIE?NOTIFICATION?04/09/2017 14:31?VAISHALI, | | HENRIQUE Seth? patient has registered at the [facility] viblast | | [facility] For more information visit: | | [email or web address] ED Care | | GuidelinesThere are currently no ED Care Guidelines in MADDIE for this patient. Please | | check your facility's medical records system.Recent Emergency Department Visit | | SummaryAdmit Date Facility [facility] State Type Major Type Diagnoses or Chief Complaint Mar | | 2017 [facility] [place] Emergency Emergency Mar 29 | | 2017 [facility]. [place] Emergency Emergency OTHER AND UNSPECIFIED OVREXRTN | | [place] STRNOUS MOVE/PST Other terminal gauger supervisor (current) drug therapy Pain in left knee | | OTHER SPECIFIED POSTPROCEDURAL STATES Sprain of unspecified site of left knee, | | initial encounter Presence of cerebrospinal fluid drainage device Recent Inpatient | | Visit SummaryNo recorded inpatient visits. E.D. Visit Count (12 mo.)Facility Visits | | [facility] 2 [facility] 4 Total 6 Note: Visits | | [...] for additional information. ? | | 2018 [facility] - [place], [place] - | | | |Recent Inpatient Visit Summary | |No recorded inpatient visits. | | | |E.D. Visit Count (12 mo.) | |Facility Visits | |[facility] 2 | |[facility] 4 | |Total 6 | |Note: Visits [...] facilities for additional information. | |? 2018 [facility] - [place], [place] - [email or web address] | + + + + + + + | Performing | Address | City/State/Zipcode | Phone Number | | Organization | | | | + + + + + | [facility] | [address] | [place], [place] | [phone] | | TECHNOLOGIES | [address] | [address] | | + + + + + [...]
--- OUTSIDE RECORDS SUMMARY | ~2019-10-25 | XMS | Encounter Summary ---
Demographics + + + | Address | [address] | | | [place] [address] | + + + | Home Phone | | + + + | Preferred Language | Unknown | + + + | Marital Status | Single | + + + | Taoism Affiliation | NRP | + + + [...] [place] | | | | | [address] | | + + + + + | Scott Nicole | ECON | Unknown | | + + + + + Care Team Providers + +------+ + | Care Gas Mask Assembler Name | Role | Phone | + +------+ + | Gabe Baird DO | PCP | | + +------+ + Encounter Details +--------+ + + + + | Date | Type | Department | Care Team | Description | +--------+ + + + + | 01/15/ | Documentati | Neurosurgery at | Nolvia Delgado, | | | 2018 | on | [facility] [address] | MD [address] | | | | | Ave [place] for | [place], [place] | | | | | Health and Healing, | [address] | | | | | Building | [phone] | | | | | floor [place], [place] | | | | | | [address] | | | | | | [phone] | | | +--------+ + + + [...] | | 2019 | Visit | | [address] | | | | | | [place], [place] | | | | | | [address] | | | | | | [phone] | | | | | | | | +--------+---------+ + + + documented as of this encounter Visit Diagnoses Not on filedocumented in this encounter"
--- OUTSIDE RECORDS SUMMARY | ~2019-10-25 | XMS | Encounter Summary ---
Demographics + + + | Address | [address] | | | [place] [address] | + + + | Home Phone [...] [place] | | | | | [address] | | + + + + + | Scott Mcgarry ECON | Unknown | | + + + + + Care Team Providers + +------+ + | Care Table Top Tile Setter Name | Role | Phone | + [...] | | | | Acute on | [place], [place] | Health and | | | | | chronic | [address] | Healing, | | | | | intracranial | Phone: | Building [address], | | | | | subdural | [phone] | 3rd Floor | | | | | hematoma | Fax: | [place], [place] | | | | | (HCC) | [phone] | [address] | | | | | Procedures | | Phone: | | | | | CT HEAD WO | | [phone] | | | | | CONTRAST MI | | Fax: | | | | | CT | | [phone] | | | | | SCAN,HEAD/BR | [...] | | | | Acute on | [place], [place] | Health and | | | | | chronic | [address] | Healing, | | | | | intracranial | Phone: | Building 1, | | | | | subdural | [phone] | 3rd Floor | | | | | hematoma | Fax: | [place], [place] | | | | | (HCC) | [phone] | [address] | | | | | Procedures | | Phone: | | | | | CT HEAD WO | | [phone] | | | | | CONTRAST [place] | | Fax: | | | | | CT | | [phone] | | | | | SCAN,HEAD/BR | [...] + + + + | 12/26/ | Hospital | Radiology/Imaging | Bernardo, | | | 2017 | Encounter | Lab at [facility] [address] | REENA Hunter | | | | | [facility] [place] [facility] | [address] [facility] | | | | | Health and Healing, | [place], [place] | | | | | [address] | [address] | | | | | Floor [place], [place] | [phone] | | | | | [address] | | | | | | [phone] | | | +--------+ + + + [...] 2 tablets by | | 0 | 06/08/20 | | | mg oral tablet | [...] [address] | | | | | | [place], [place] | | | | | | [address] | | | | | | [phone] | | | | | | | | +--------+---------+ + + + documented as of this encounter Procedures + +--------+ + + + | Procedure Name | Priori | Date/Time | Associated Diagnosis | Comments | | | ty | | | | + +--------+ + + + | CT HEAD WO CONTRAST | Routin | 12/26/2016 | Hydrocephalus | Results for this | | | e | 2:19 PM | Acute on chronic | procedure [...] space, | | | this is likely event sales representative of small clots. Soft tissues: | [...] Service Account, Radiant Res In Interface - 12/26/2016 5:10 PM [...] in the subdural space, this is likely event sales representative of small | | clots.Soft tissues: [...]
--- OUTSIDE RECORDS SUMMARY | ~2019-10-25 | XMS | Encounter Summary ---
Demographics + + + | Address | [address] | | | [place] [address] | + + + | Home Phone [...] [place] | | | | | [address] | | + + + + + | Scott Nicole | ECON | Unknown | | + + + + + Care Team Providers + +------+ + | Care Labor Relations Supervisor Name | Role | Phone | + +------+ + | Gabe Baird DO | PCP | | + +------+ + Encounter Details +--------+ + + + + | Date | Type | Department | Care Team | Description | +--------+ + + + + | 08/26/ | Telephone | Neurosurgery at | Nolvia Delgado, | | | 2019 | | [facility] [address] | MD [address] | | | | | [place] [facility] | [place], [place] | | | | | Health and Healing, | [address] | | | | | [facility] | [phone] | | | | | floor [place], [place] | | | | | | [address] | | | | | | [phone] | | | +--------+ + + + [...] | | 2019 | Visit | | [address] | | | | | | [place], [place] | | | | | | [address] | | | | | | [phone] | | | | | | | | +--------+---------+ + + + documented as of this encounter Visit Diagnoses Not on filedocumented in this encounter"
--- OUTSIDE RECORDS SUMMARY | ~2019-10-25 | XMS | Encounter Summary ---
Demographics + + + | Address | [address] | | | [place] [address] | + + + | Home Phone [...] [place] | | | | | [address] | | + + + + + | Scott Nicole | ECON | Unknown | | + + + + + Care Team Providers + +------+ + | Care Flight Dynamicist Name | Role | Phone | + [...] Hunter | | | | | [place] [facility] | [address] | | | | | Health and Healing, | [place], [place] | | | | | [facility] | [address] | | | | | floor [place], [place] | [phone] | | | | | [address] | | | | | | [phone] | | | +--------+--------+ + + + [...] [address] | | | | | | [place], [place] | | | | | | [address] | | | | | | [phone] | | | | | | | | +--------+---------+ + + + documented as of this encounter Visit Diagnoses Not on filedocumented in this encounter"
--- OUTSIDE RECORDS SUMMARY | ~2019-10-25 | XMS | Encounter Summary ---
Demographics + + + | Address | [address] | | | [place] [address] | + + + | Home Phone [...] Author + + + | Author | [facility] | + + + | Organization | [facility] | + + + | Address | Unknown | + + + | Phone | Unavailable | + + + Support + + + + + | Name | Relationship | Address | Phone | + + + + + | Malina Nicole | ECON | [address] | | | | | [place] | | | | | [address] | | + + + + + | Scott Mcgarry ECON | Unknown | | + + + + + Care Team Providers + +------+ + | Care Fibreglass Lay Up Worker Name | Role | Phone | [...] + + | 07/02/ | Emergency | [facility] Emergency | Buddy العلي, | | | 2016 | | Department [address] | | | | | [address] | | | | | | [facility] | | | | | | [place], [place] | | | | | | [address] | | | | | | [phone] | | | +--------+ + + + [...] Take a daily multivitamin supplement. Take an wuqd-pya-owzgddc pain medicine, such as acetaminophen (Tylenol), ibuprofen [...] "Muscle Cramps: Care Instructions", log into your [employer] account at [email or web address]. You can enter I565 in the "[employer] Library" search box. Not on [employer] Review the [employer] section of your After Visit Summary for directions on ho w to sign up. Current as of: August 07, 2015 Content Version: [id number] needmade. Care instructions adapted under license by [facility] [employer]. If you have questions about a medical condition or this instr uction, always ask your healthcare professional. [employer]made disclaims any amy anty or liability for [...] [address] | | | | | | [place], [place] | | | | | | [address] | | | | | | [phone] | | | | | | | [...] | + + + + + | [facility] | [address] | [place] [address] | | | SERVICES, CORE | HAYDEE [...] + | [facility] - | [address] | [place] [address] | | | [place] | | | [...] [facility] | [address] | [place] [address] | | | SERVICES, CORE | HAYDEE [...] [facility] | [address] | [place] [address] | | | SERVICES, CORE | PARK [...] | [facility] | | | GRAVITY | Rousseau performed by | | LABORATORY | | [...] + + + + + | [facility] [employer] | [address] | [place] [address] | | | SERVICES, CORE | HAYDEE [...] | | FINDINGS: Brain: Right posterior approach RAILROAD FIRER shunt catheter | | | in unchanged [...] Indwelling | | | right posterior approach RAILROAD FIRER shunt catheter with stable marked lateral | [...] Note | + + | Service Account, [employer] In Interface - 07/02/2016 4:29 PM PDT EXAM: CT head | | without contrastHISTORY: Ventriculoperitoneal shunt with ataxiaCOMPARISON: Multiple | | previous exams, the most recent from 11/30/2015TECHNIQUE: CT of the head without | | contrast.FINDINGS:Brain: Right posterior approach RAILROAD FIRER shunt catheter in unchanged | | position. [...] Visualized portions are unremarkable.IMPRESSION:Indwelling right posterior approach RAILROAD FIRER | | shunt catheter with stable marked [...] | | | |Indwelling right posterior approach RAILROAD FIRER shunt catheter with stable marked lateral and [...] | + +---------+ + + | [facility] | | | | | VOICE [...] [facility] | [address] | [place] [address] | | | SERVICES, CORE | PARK [...] + + + + + | [facility] | [address] | [place] [address] | | | SERVICES, CORE | HAYDEE [...] [facility] | [address] | [place] [address] | | | RYNE ARIAS | HAYDEE [...] | | | LABORATORY | | | [place] | | | SERVICES, | | | [...] [facility] | [address] | [place] [address] | | | RYNE ARIAS | HAYDEE [...]
--- OUTSIDE RECORDS SUMMARY | ~2019-10-25 | XMS | Encounter Summary ---
Demographics + + + | Address | [address] | | | [place] [address] | + + + | Home Phone [...] [place] | | | | | [address] | | + + + + + | Scott Nicole | ECON | Unknown | | + + + + + Care Team Providers + +------+ + | Care Behavioral Sciences Instructor Name | Role | Phone | [...] Visit | Medicine Clinic at | J, BRAKE RELINER | (Primary Dx); | | | | [facility] 4th Floor Day | | [facility]iz[facility] ([facility]); | | | | Stay [address] | | Cerebral palsy | | | | [address] | | ([facility]); Other | | | | Mailcode: UHN65 | | specified | | | | [facility] | | pre-operative | | | | [address] [place], [place] | | examination | | | | [address] | | | | | | [phone] | | | +--------+---------+ + + + [...] your procedure. Surgery Check in Locations Admitting [facility] Surgery Check in Time: The Preoperative Medicine [...] it is after office hours, call the [facility] rim fire priming operator at [phone] and ask them to page documented in this encounter Progress Notes Primo Palma MA - 03/16/2012 9:14 AM PST Venipuncture performed in clinic, blood sample obtained from Left antecubital site Electron ically signed by Primo Palma MA at 03/16/2012 9:14 AM Clarisse Whalen FNP - 03/16/2012 9:06 AM PST PREOPERATIVE CONSULT NOTE Consulting Provider: SARAH HARDY Referring Physician: Dr Delgado Primary Care Provider: REENA Ayala Reason for Consult: Preoperative evaluation and risk assessment Proposed Procedure/Date: stealth-guided endoscopic third ventriculostomy with EVD, 03/20/11 HISTORY OF PRESENT ILLNESS: Rin Casas is a 41 y.o. female here for preoperative evalu ation for above procedure. Pt has dx of mild congenital hydrocephalus not treated with SLEEP SCIENTIST shunt characterized by incre asing loss of [...] and PMHX. Document will be scanned in [employer]. Current Medication List Name Sig LAMOTRIGINE 100 [...] Body mass index is 30.86 k g/(m^2). [facility] ROS Last edited 03/16/12904 by SARAH Mark [...] further investigation and manageme nt. A. Acute [place] within 7 days: no B. Unstable angina/Recent [place] (7- 30 days): no C. Decompensated CHF: [...] no Rate of cardiac , non fatal [place], non fatal cardiac arrest (RCRI) 0 risk [...] contribute to this patient's care. SARAH HARDY [facility] [address] [facility] [address] [phone] signed by SARAH Mark at 03/16/2012 9:13 [...] [address] | | | | | | [place], [place] | | | | | | [address] | | | | | | [phone] | | | | | | | [...] | + +--------+ + + + | [place] COLLECTION VENOUS | Routin | 03/16/2012 | [...] [facility] | [address] | [place] [address] | | | SERVICES, CORE | [address] [...] [facility] | [address] | [place] [address] | | | SERVICES, | [address] [...] [facility] | [address] | [place] [address] | | | SERVICES, | [address] [...] | | | LABORATORY | | | [facility] | | | SERVICES, | | | [...] | + + + + + | [facility] | [address] | [place] [address] | | | SERVICES, CORE | [address]AYDEE [...]
--- OUTSIDE RECORDS SUMMARY | ~2019-10-25 | XMS | Encounter Summary ---
Demographics + + + | Address | [address] | | | [place] [address] | + + + | Home Phone [...] [place] | | | | | [address] | | + + + + + | Scott Mcgarry ECON | Unknown | | + + + + + Care Team Providers + +------+ + | Care Security Delivery Specialist Name | Role | Phone | [...] | +--------+ + + + + | 11/07/ | Anesthesia | 6A Intra Op 3181 | Patrick Martin, | | | 2016 | Event | [address] | ,PhD [address] | | | | | [facility] | [address] | | | | | Hospital Admitting | [place], [place] | | | | | Desk Located on the | [address] | | | | | 9th floor | [phone] | | | | | [facility] [place] | | | | | | [address] | Hudson Ortiz CRNA | | | | | | [address] | | | | | | [address] [place], | | | | | | [place] [address] | | | | | | [phone] | | | | | | | | +--------+ + + + + Anesthesia Record + + + + + | Procedure Name | Responsible | Anesthesia Start | Anesthesia Stop Time | | | Anesthesiologist | Time | | + + + + + | RIGHT OCCIPITAL | Per Maryann Martin, | 11/08/15 0948 | 11/08/15 1200 | | VENTRICULOPERITONEAL | MD, | | | | SHUNT PLACEMENT | | | | | WITH STEALTH | | | | | (Right Head) | | | | + + + + + +----+---+ + + | Da | T | Event | Comment | | te | i | | | | | m | | | | | e | | | +----+---+ + + | 08 | 0 | Eq Check | Anesthesia machine checked Equipment verified | | /2 | 9 | | | | 4/ | 2 | | | | 20 | 3 | | | | 16 | | | | +----+---+ + + | | 0 | Pt. Check | Prior to anesthesia start, pt. Identified, examined, chart | | | 9 | | reviewed, PARQ held, anesthetic plan made or approved by | | | 3 | | attending anesthesiologist. NPO status confirmed as appropriate | | | 4 | | for procedure Preoperative evaluation: unchanged | +----+---+ + + | | 0 | An Start | | | | 9 | | | | | 4 | | | | | 8 | | | +----+---+ + + | | 0 | An Start | | | | 9 | Data | | | | 5 | | | | | 3 | | | +----+---+ + + | | 0 | Vitals | Monitors applied Vital signs checked Patient ready for anesthesia | | | 9 | Checked | | | | 5 | | | | | 8 | | | +----+---+ + + | | 1 | Std. Airway | | | | 0 | Mgt. | | | | 0 | | | | | 2 | | | +----+---+ + + | | 1 | Ready | | | | 0 | | | | | 0 | | | | | 6 | | | +----+---+ + + | | 1 | Abx | | | | 0 | Administere | | | | 1 | d | | | | 6 | | | +----+---+ + + | | 1 | Incision | | | | 0 | | | | | 5 | | | | | 3 | | | +----+---+ + + | | 1 | Surgery end | | | | 1 | | | | | 4 | | | | | 2 | | | +----+---+ + + | | 1 | Anesthesia | | | | 2 | End | | | | 0 | | | | | 0 | | | +----+---+ + + | | 1 | an stop | | | | 2 | data | | | | 0 | | | | | 0 | | | +----+---+ + + +------+ | Meds | +------+ + + + | Name | Total | + + + | fentaNYL | 150 mcg | + + + | lidocaine 2% | 60 mg | + + + | propofol | 300 mg | + + + | rocuronium | 50 mg | + + + | PHENYLEPHrine | 600 mcg | + + + | ePHEDrine | 10 mg | + + + | ceFAZolin | 2,000 mg | + + + | ondansetron | 4 mg | + + + | glycopyrrolate | 0.8 mg | + + + | neostigmine | 4 mg | + + + | LR | 900 mL | + + + + + | Name | + + | O2 FR Avance (Total Liters) | + + | N2O FR Avance (l/min) | + + | Air FR Avance (l/min) | + + | Insp Sevo | + + | Et Sevo | + + | Insp Iso | + + | Et Iso | + + | EtN2O % | + + | Insp N2O % [...] +--------+ + + + | Periph | 11/07/15; 1920; Left; Forearm; 22 | 11/07/15 192 by | 11/09/15 1030 by | | eral | g; Lidocaine; No; Positive; | Cindy Fu RN | Melly Barger | | IV | 11/09/15; 1030 | Zeferino Calvo RN | +--------+ + + + | Incisi | 11/08/15; (physican staff); | 11/08/15 0000 by | 09/20/161646 by | | on | Right; head; 09/20/16; 1646 | Adenike Barrow RN | Ronda Chiu RN | +--------+ + + + | Incisi | 11/08/15; (physican staff); | 11/08/15 0000 by | 09/20/161646 by | | on | abdomen; 09/20/16; 1646 | Adenike Barrow RN | Ronda Chiu RN | +--------+ + + + | Periph | 11/08/15; 1019; Diana [employer]; Left; | 11/08/15 1019 by | 11/09/15 1030 by | | eral | Hand; 18 g; Positive; 11/09/15; | Hudson Ortiz, [employer] | Melly Van | | IV | 1030 | | ART Calvo | +--------+ + + + documented in [...] | | 2019 | Visit | | [address] | | | | | | [place], [place] | | | | | | [address] | | | | | | [phone] | | | | | | | | +--------+---------+ + + + documented as of this encounter Visit Diagnoses Not on filedocumented in this encounter Administered Medications + +--------+ + +------+------+ | Medication Order | MAR | Action | Dose | Rate | Site | | | Action | Date | | | | + +--------+ + +------+------+ | ceFAZolin (ANCEF) injection | Given | 11/08/19 | 2,000 mg | | | | intravenous, INTRAPROCEDURE PRN, | | 16 10:16 | | | | | Starting Fri11/08/15 at 1016, | | AM PDT | | | | | Until Fri11/08/15 at 1200 | | | | | | + +--------+ + +------+------+ +---+---+ | | | +---+---+ + +-------+ +-------+---+---+ | ePHEDrine injection | Given | 11/08/19 | 10 mg | | | | intravenous, INTRAPROCEDURE PRN, | | 16 10:59 | | | | | Starting Fri11/08/15 at 1059, | | AM PDT | | | | | Until Fri11/08/15 at 1200 | | | | | | + +-------+ +-------+---+---+ +---+---+ | | | +---+---+ + +-------+ +--------+---+---+ | fentaNYL citrate (PF) | Given | 11/08/19 | 50 mcg | | | | (SUBLIMAZE) injection | | 16 11:41 | | | | | INTRAPROCEDURE PRN, Starting Wed | | AM PDT | | | | | 11/08/15 at 0959, Until Wed | | | | | | | 11/08/15 at 1200 | | | | | | + +-------+ +--------+---+---+ +-------+ +---------+---+---+ | Given | 11/08/19 | 100 mcg | | | | | 16 9:59 | | | | | | AM PDT | | | | +-------+ +---------+---+---+ +---+---+ | | | +---+---+ + +-------+ +--------+---+---+ | glycopyrrolate (RJ) | Given | 11/08/19 | 0.8 mg | | | | injection INTRAPROCEDURE PRN, | | 16 11:35 | | | | | Starting Fri11/08/15 at 1135, | | AM PDT | | | | | Until Fri11/08/15 at 1200 | | | | | | + +-------+ +--------+---+---+ +---+---+ | | | +---+---+ + + + +---+---+---+ | lactated ringers IV | given by | 11/08/19 | | | | | INTRAPROCEDURE CONTINUOUS PRN, | | 16 11:45 | | | | | Starting Fri11/08/15 at 0930, | anesthes | AM PDT | | | | | Until Fri11/08/15 at 1200 | iology | | | | | + + + +---+---+---+ +---------+ +---+---+---+ | New Bag | 11/08/19 | | | | | | 16 9:30 | | | | | | AM PDT | | | | +---------+ +---+---+---+ +---+---+ | | | +---+---+ + +-------+ +-------+---+---+ | lidocaine PF (XYLOCAINE MPF) 20 | Given | 11/08/19 | 60 mg | | | | mg/mL (2 %) injection | | 16 10:02 | | | | | INTRAPROCEDURE PRN, Starting Wed | | AM PDT | | | | | 11/08/15 at 1002, Until Wed | | | | | | | 11/08/15 at 1200 | | | | | | + +-------+ +-------+---+---+ +---+---+ | | | +---+---+ + +-------+ +------+---+---+ | neostigmine (PROSTIGMIN) | Given | 11/08/19 | 4 mg | | | | injection intravenous, | | 16 11:35 | | | | | INTRAPROCEDURE PRN, Starting Wed | | AM PDT | | | | | 11/08/15 at 1135, Until Wed | | | | | | | 11/08/15 at 1200 | | | | | | + +-------+ +------+---+---+ +---+---+ | | | +---+---+ + +-------+ +------+---+---+ | ondansetron (ZOFRAN) injection | Given | 11/08/19 | 4 mg | | | | INTRAPROCEDURE PRN, Starting Wed | | 16 11:35 | | | | | 11/08/15 at 1135, Until Wed | | AM PDT | | | | | 11/08/15 at 1200 | | | | | | + +-------+ +------+---+---+ +---+---+ | | | +---+---+ + +-------+ +---------+---+---+ | PHENYLEPHrine 100 mcg/mL IV | Given | 11/08/19 | 200 mcg | | | | syringe INTRAPROCEDURE PRN, | | 16 10:46 | | | | | Starting 11/08/15 at 1014, | | AM PDT | | | | | Until Wed /24/16 at 1200, blood | | | | | | | pressure | | | | | | + +-------+ +---------+---+---+ +-------+ +---------+---+---+ | Given | 11/08/19 | 200 mcg | | | | | 16 10:36 | | | | | | AM PDT | | | | +-------+ +---------+---+---+ | Given | 11/08/19 | 200 mcg | | | | | 16 10:14 | | | | | | AM PDT | | | | +-------+ +---------+---+---+ +---+---+ | | | +---+---+ + +-------+ +--------+---+---+ | propofol INTRAPROCEDURE PRN, | Given | 11/08/19 | 150 mg | | | | Starting Fri11/08/15 at 1002, | | 16 11:01 | | | | | Until Fri11/08/15 at 1200 | | AM PDT | | | | + +-------+ +--------+---+---+ +-------+ +--------+---+---+ | Given | 11/08/19 | 150 mg | | | | | 16 10:02 | | | | | | AM PDT | | | | +-------+ +--------+---+---+ +---+---+ | | | +---+---+ + +-------+ +-------+---+---+ | rocuronium (ZEMURON) injection | Given | 11/08/19 | 50 mg | | | | INTRAPROCEDURE PRN, Starting Wed | | 16 10:02 | | | | | 11/08/15 at 1002, Until Wed | | AM PDT | | | | | 11/08/15 at 1200, Neuromuscular | | | | | | | block | | | | | | + +-------+ +-------+---+---+ +---+---+ | | | +---+---+ documented in this encounter"
--- OUTSIDE RECORDS SUMMARY | ~2019-10-25 | XMS | Encounter Summary ---
Demographics + + + | Address | [address] | | | [place] [address] | + + + | Home Phone [...] + + + | Author | [facility] | + + + | Organization | [facility] | + + + | Address | Unknown | + + + | Phone | Unavailable | + + + Support + + + + + | Name | Relationship | Address | Phone | + + + + + | Malina Nicole | ECON | [address] | | | | | [place] | | | | | [address] | | + + + + + | Scott Mcgarry ECON | Unknown | | + + + + + Care Team Providers + +------+ + | Care Car Salter Name | Role | Phone | + [...] [id number] | | | | | | [facility] | | | | | | [place], [place] | | | | | | [address] | | | | | | [phone] | | | +--------+ + + + [...] | Office | Neurological Surgery | Nolvia Delgaod, | | | 2019 | Visit | | [address] | | | | | | [place], [place] | | | | | | [address] | | | | | | [phone] | | | | | | | | +--------+---------+ + + + documented as of this encounter Visit Diagnoses Not on filedocumented in this encounter"
--- OUTSIDE RECORDS SUMMARY | ~2019-10-25 | XMS | Encounter Summary ---
Demographics + + + | Address | [address] | | | [place] [address] | + + + | Home Phone [...] [place] | | | | | [address] | | + + + + + | Scott Mcgarry ECON | Unknown | | + + + + + Care Team Providers + +------+ + | Care Marine Service Station Attendant Name | Role | Phone | + +------+ + | Patricia Stevens | PCP | | + +------+ + Encounter Details +--------+ + + + + | Date | Type | Department | Care Team | Description | +--------+ + + + + | 09/13/ | Document-Sc | UNKNOWN DEPARTMENT | Unknown . | | | 2013 | anned | [address] [facility] | | | | | | [address] | | | | | | [place], [place] | | | | | | [address] | | | +--------+ + + + [...] | | 2019 | Visit | | [address] | | | | | | [place], [place] | | | | | | [address] | | | | | | [phone] | | | | | | | [...]
--- OUTSIDE RECORDS SUMMARY | ~2019-10-25 | XMS | Encounter Summary ---
Demographics + + + | Address | [address] | | | [place] [address] | + + + | Home Phone [...] [place] | | | | | [address] | | + + + + + | Scott Mcgarry ECON | Unknown | | + + + + + Care Team Providers + +------+ + | Care Tissue Recovery Technician Name | Role | Phone | [...] | | [address] | [address] | [address]AGE OF | | | | Rd [facility] | [place], [place] | SUBDURAL HEMATOMA | | | | Hospital Admitting | [address] | | | | | Desk Located on the | [phone] | | | | | 9th floor | | | | | | [place], [place] | | | | | | [address] | | | +--------+---------+ + + + [...] Nolvia Delgado MD PCP: REENA Gusman Service: [facility] Neurosurgery Diagnoses Principal Final Diagnosis: Bilateral chronic [...] surgical intervention. The patient was admitted to [facility] on 09/20/2016 and underwent Bilateral Aime Holes [...] The patient will follow up in the [facility] Neurosurgery clinic on 10/10/2016 with repeat Head [...] be on the 8th floor at the [facility] on the [facility] located at [address] [place] [address]. Please call [phone] if you have any questions or concerns before your appointment time. You will need to obtain a head CT prior to this appointment at 12:45pm on the 3rd floor at [facility]. PCP:REENA Gusman When: Please follow-up with your [...] 10:50 AM Discharging Attending: Nolvia Delgado MD [facility] 10G [address] [address] documented in this encounter Medications [...] in all 4 extremities Motor: Tri Bi Lineman Apprentice HF KF KE APF ADF Left 5 [...] today with OP PT Dimple Sage PA-C [facility] 10K [address] [facility] [address] Kristen Cazares PA - 09/23/2016 8:22 AM [...] - 1.10 mg/dL 0.55 (L) EGFR - [facility] Latest Ref Range: >60 mL/min >60 EGFR NON -[facility] Latest Ref Range: >60 mL/min >60 GLUCOSE, [...] with repeat Head CT prior. REENA Hart-Fiordaliza [facility] 10K [address] [address]/[place] [address] MEDICATIONS Current Facility-Administered Medications Medication acetaminophen (TYLENOL) [...] M.D., M.P.H. Neurological Surgery Resident PGY-1 Pager: [phone] Cindy Rangel ACN - 09/21/2016 4:20 PM PDT . Neuroscience Intensive Care Unit Team Progress Note NSICU ASSIGNED #[id number] ICU Admission Reason Most Recent Value ICU [...] Multiple EVD placements, now s/p R occipital SHELL SHOP SUPERVISOR shunt placement in October [address] [...] team members Provider Role Specialty Ipt Neurosurgery #[id number] Treatment Team Neurological Surgery Ipt Critical Care Nsicu #[id number] Treatment Team -- Patient Lines/Drains/Airways Status Active [...] Date of Service: 09/21/2016 Cindy Flores NP [facility] DEPARTMENT: ANE ICU NEURO Place of Service:- Inpatient CSN: [id number] Suggested Modifier: None Suggested CPT: TO TELESERVICES REPRESENTATIVE Cindy Flores NP Author:Cindy Flores NP [address] [id number] signed by DILMA Wade at 09/21/2016 4:28 PM PD Sujata Webster MD - 09/21/2016 12:21 PM PDTFormatting of this note might be different f rom the original. . Neuroscience Intensive Care Unit Attending Progress Note Attending Pager #[phone] ICU Admission Reason Most Recent Value ICU [...] team members Provider Role Specialty Ipt Neurosurgery #[id number] Treatment Team Neurological Surgery Ipt Critical Care Nsicu #75495 Treatment Team -- Code Status Code Status [...] on counseling and coordination of care.Seen with PA/GEODETIC ENGINEER Nathalie Sandra. Please s ee their note for details. I reviewed the documented findings, all data and the recent imagi ng available. 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 There have been no changes s chandni last seen by neurosurgery team. Proceed with planned operation. Patient is blind and c annot write. Consent obtained with [place] [address] Chief Resident Neurological Surgery documented in thi s encounter Plan of Treatment +--------+---------+ + + + | Date | Type | Specialty | Care Team | Description | +--------+---------+ + + + | 11/24/ | Office | Neurological Surgery | Danny Nolvia Liang, | | | 2019 | Visit | | [address] | | | | | | [place], [place] | | | | | | [address] | | | | | | [phone] | | | | | | | [...] 09/20/2016 | | Attending Surgeon:Nolvia Delgado MD Sheetmetal Patternmaker(s):Nata | | MD Ashish Preoperative Diagnoses: 1.Bilateral [...] | obtain meticulous hemostasis. Using a high-speed filler room attendant drill, 2 bur holes were | | [...] used to coagulate the skin edges. A filler room attendant drill was used to make these 2 [...] 09/23/2016 10:18:38DT: 09/23/2016 | | 13:02:59Job #: [id number] | |Nata Hinojosa MD | | | | | |Nolvia Delgado MD | |FAH/MODL | | | | | | /[id number] | + + CBC (HEMOGRAM) ONLY (09/23/2016 [...] [facility] | [address] | [place] [address] | | | SERVICES, CORE | HAYDEE [...] | | | LABORATORY | | | [facility] | | | SERVICES, | | | [...] | + + + + + | [employer] [facility] | [address] [facility] [address] | [place] [address] | | | SERVICES, RYNE | HAYDEE [...] | [facility] | [address] | [place] [address] | | | SERVICES, RYNE | PARK [...] [facility] | [address] | [place], [place] | | | BOB POINT OF CARE | [facility] | [address] | | | TESTS | | | [...] | 0.00 | 0.00 - 0.02 | [facility] | | | | | K/cu mm [...] | [facility] | [address] [facility] [address] | [place] [address] | | | SERVICES, CORE | PARK [...] | | | LABORATORY | | | [facility] | | | SERVICES, | | | [...] | + + + + + | [facility] | [address] | [place] [address] | | | SERVICES, CORE | PARK [...] | + + + + + | [facility] | [address] | [place] [address] | | | SERVICES, CORE | HAYDEE [...] [facility] | [address] | [place], [place] | | | [facility] | [address] | [address] | | | TESTS | | | [...] | + + + + + | [facility] | [address] | [place] [address] | | | SERVICES, CORE | HAYDEE [...] | | | LABORATORY | | | [facility] | | | SERVICES, | | | [...] [facility] | [address] | [place] [address] | | | SERVICES, CORE | PARK [...] | + + + + + | [facility] | [address] | [place] [address] | | | SERVICES, CORE | HAYDEE [...] Note | + + | Service Account, [employer] Res In Interface - 09/20/2016 8:06 PM [...] DALE | [address] | [place], [place] | | | [facility] | [address] | [address] | | | TESTS | | | [...] Luis F Hinojosa MD | | | [address] Chief Resident Neurosurgery | | + + [...] H[facility] | [address] | [place], [place] | | | [facility] | [address] | [address] | | | TESTS | | | [...]
--- OUTSIDE RECORDS SUMMARY | ~2019-10-25 | XMS | Encounter Summary ---
Demographics + + + | Address | [address] | | | [place] [address] | + + + | Home Phone | | + + + | Preferred Language | Unknown | + + + | Marital Status | Single | + + + | [employer] Affiliation | NRP | + + + [...] [place] | | | | | [address] | | + + + + + | Scott Nicole | ECON | Unknown | | + + + + + Care Team Providers + +------+ + | Care Share Holder Name | Role | Phone | + [...] | [address] | Gil Apple MD [address] | | | | | [facility] | [address] | | | | | Hospital Admitting | Rd [facility] [place] | | | | | Desk Located on the | [address] | | | | | 9th floor | [phone] | | | | | [facility] [place] | | | | | | [address] | Milad Flores | | | | | Zeferino Jarquin MD [address] | | | | | | [address] | | | | | | [facility] [place] | | | | | | [address] | | | | | | [phone] | | | | | | | [...] 04/23/19; 919; Left; Dorsal; | 04/23/19919 by Dahlia | 04/23/191611 by | | eral | [...] [address] | | | | | | [place], [place] | | | | | | [address] | | | | | | [phone] | | | | | | | [...]
--- OUTSIDE RECORDS SUMMARY | ~2019-10-25 | XMS | Encounter Summary ---
Demographics + + + | Address | [address] | | | [place] [address] | + + + | Home Phone [...] [place] | | | | | [address] | | + + + + + | Scott Nicole | ECON | Unknown | + | + + + + + Care Team Providers + +------+ + | Care Dietary Service Aide Name | Role | Phone | + [...] [address] | | | | | | [place], [place] | | | | | | [address] | | | | | | [phone] | | | | | | | | +--------+---------+ + + + documented as of this encounter Visit Diagnoses Not on filedocumented in this encounter"
--- OUTSIDE RECORDS SUMMARY | ~2019-10-25 | XMS | Encounter Summary ---
Demographics + + + | Address | [address] | | | [place] [address] | + + + | Home Phone [...] [place] | | | | | [address] | | + + + + + | Scott Nicole | ECON | Unknown | | + + + + + Care Team Providers + +------+ + | Care Nanoelectronics Engineer Name | Role | Phone | + [...] | | | | | | s ([facility]) | [place], [place] | | | | | | Procedures | [address] | | | | | | CT HEAD WO | Phone: | | | | | | CONTRAST | [phone] | | | | | | | Fax: | | | | | | | [phone] | | +--------+--------+ + + + + [...] | | | | | hydrocephalu | [facility] | Ave | | | | | s (HCC) | [facility] | [place], [place] | | | | | Procedures | Rd | [address] | | | | | [place] EST | [place], [place] | Phone: | | | | | PATIENT | [address] | [phone] | | | | | LEVEL V [place] | Phone: | Fax: | | | | | REPROGRAMMIN | [phone] | [phone] | | | | | G,PROGRAMMAB | Fax: | | | | | | LE CSF SHUNT | [phone] | | +--------+--------+ + + + + [...] | | | [facility] | [place], [place] | (Primary Dx) | | | | [facility] He[facility], | [address] | | | | | Building | [phone] | | | | | floor [place], [place] | | | | | | [address] | | | | | | [phone] | | | +--------+---------+ + + + [...] of acqueductal stenosis, s/p ETV x 3, TRAIN CONTROL TECHNICIAN shunt, subdural hematoma drainage due to overshunting. [...] or mass eff ect. ASSESSMENT AND PLAN: Rin Casas is a 47 y.o. female who [...] James. MD TALYA Sanz MD NEUROSURGERY AT [facility] [address] Mailcode: [place] [address] documented in this en counter Plan of Treatment +--------+---------+ + + + | Date | Type | Specialty | Care Team | Description | +--------+---------+ + + + | 11/24/ | Office | Neurological Surgery | Talya Delgado, | | | 2020 | Visit | | [address] | | | | | | [place], [place] | | | | | | [address] | | | | | | [phone] | | | | | | | | +--------+---------+ + + + documented as of this encounter Results CT HEAD WO CONTRAST (01/08/2018 12:02 PM PDT) + + | Specimen | + + | | + + + + + | Narrative | Performed At | + + + | EXAM: CT HEAD WITHOUT CONTRAST HISTORY: Interval surveillance TRAIN CONTROL TECHNICIAN | [facility] | | shunt function COMPARISON: [...] signature: Chiquis Hassan | | | MD Levi 01/08/2018 12:17 PM Preliminary: Chiquis Sims, | | | Dictation initiated: Chiquis Sims MD 01/08/2018 | | | 12:13 PM | | + + + + + | Procedure Note | + + | Service Account, Radiant Res In Interface - 01/08/2018 12:18 PM PDT EXAM: CT HEAD | | WITHOUT CONTRAST HISTORY: Interval surveillance TRAIN CONTROL TECHNICIAN shunt function COMPARISON: | | 08/28/2017 TECHNIQUE: [...]
--- OUTSIDE RECORDS SUMMARY | ~2019-10-25 | XMS | Encounter Summary ---
Demographics + + + | Address | [address] | | | [place] [address] | + + + | Home Phone [...] [place] | | | | | [address] | | + + + + + | Scott Nicole | ECON | Unknown | | + + + + + Care Team Providers + +------+ + | Care Nut Orchardist Name | Role | Phone | + [...] | | | | | | [place], [place] | | | | | | [address] | | | | | | [phone] | | | +--------+ + + + [...] Tracy | | | | | | [place], [place] | | | | | | [address] | | | | | | [phone] | | | | | | | | +--------+---------+ + + + documented as of this encounter Visit Diagnoses Not on filedocumented in this encounter"
--- OUTSIDE RECORDS SUMMARY | ~2019-10-25 | XMS | Encounter Summary ---
Demographics + + + | Address | [address] | | | [place] [address] | + + + | Home Phone [...] [place] | | | | | [address] | | + + + + + | Scott Mcgarry ECON | Unknown | | + + + + + Care Team Providers + +------+ + | Care Inside Contractor Sales Name | Role | Phone | + [...] 2012 | | SW Coco Sena | [address] | ENDOSCOPIC THIRD | | | | Boris [facility] Main | [place], [place] | VENTRICULOSTOMY WITH | | | | Hospital Admitting | [address] | EXTERNAL | | | | Desk Located on the | [phone] | VENTRICULAR DRAIN | | | | 9th floor | | | | | | [facility] [place] | | | | | | [address] | | | +--------+---------+ + + + [...] over the last several years, admitted to [facility] electively on 03/20/2012 for the proc edures [...] Discharge Stable Follow Up Follow up at [facility], [place] [facility], 8th Floor, [address], [place] [address] with Dr. Delgado on 04/15/12 at 09:00am. Future Appointments Date & Time Provider Department Dept Phone Center 04/15/2012 9:00 AM Nolvia Delgdao MD Neurosurgery [phone] Neurosurgery Warning Symptoms and Signs Please call the Neurosurgery clinic at [phone] with any questions Friday to Friday 8 A M - 4 PM. After hours, call [facility] at [phone] and ask to speak with the Neurosurgery resi dent radio division lieutenant if you have any of the following: [...] family assistance today 03/24/12 LIZBETH ONEAL PA-C [facility] [address] [facility] [address] Pg. [phone] MEDICATIONS Current Facility-Administered Medications Medication acetaminophen (aka [...] assistance tomorr ow 03/24/12 LIZBETH ONEAL PA-C [facility] [address] [address] [id number] Pg. [phone] MEDICATIONS Current Facility-Administered Medications Medication acetaminophen (aka [...] smith PA - 03/22/2012 12:44 PM PST [facility] Progress Note Team Pager: [phone] Attendin Patient name: Rin Casas Author: REENA BASS Date of Service: 03/22/2012 Intensive Care Attending: Rocky Salazar MD Attending Provider: Nolvai Delgado MD ICU day # 3 POD [...] abo ve assessment and plan. REENA BASS [facility] DEPARTMENT: [id number] ICU NEURO Place of Service:- Inpatient Date of Service: 03/22/2012 CSN: [id number] Suggested Modifier: None Suggested CPT: TO PROCESS CAMERA OPERATOR Estela Gaffney MD - 03/22/2012 5:22 AM [...] Estela Mauricio MS, MD Neurological Surgery, PGY-4 08589 Sujata Lakhani MD - 03/21/2012 9:48 PM PST [facility] Neuroscience ICU Attending A/C Tech Note Rin Casas is a 41 y.o. [...] management of this patient. SUJATA SABA MD [facility] DEPARTMENT: [id number] ICU NEURO Place of Service:- Inpatient Date of Service: 03/21/2012 CSN: [id number] Suggested Modifier: GC - Resident Involved Suggested CPT: TO CODER P Rocky Doss MD - 03/21/2012 9:22 AM PST 7NSICU ATTENDING RECORDS MANAGEMENT ASSISTANT DAILY PROGRESS NOTE Team Pager: [phone] Attendin Date:03/21/2012 Critical Care Attending Physician: ROCKY SALAZAR MD Referring Attending P charly: Nolvia Delgado MD I saw and evaluated the patient at the bedside together with Justino Tong (FLORAL DESIGNER SALESPERSON). Please see her note for details of [...] management of this patient. Rocky Salazar MD [facility] DEPARTMENT: [id number] ICU NEURO Place of Service:- Inpatient Date of Service: 03/21/2012 CSN: [id number] Suggested Modifier: None Suggested CPT: TO PROCESS CAMERA OPERATOR RELEVANT DATA: Last Vitals: BP 128/81 | [...] -- -- EOSPERC -- -- Caesar Mosqueda, FLORAL DESIGNER SALESPERSON - 03/21/2012 6:01 AM PST [facility] Progress Note Team Pager: [phone] Attendin Attending A/C Tech: Primary Service Attending: MD Nolvia Manning MD [...] 03/20/12699 - 03/21/1265803/21/12699 - 03/22/12 0659 Shift 1589-8825 3665-1710 7977-7911 Daily Total 0906-0229 4822-3337 3757-8045 Daily Total I N T A K E P.O. 340 240 580 I.V. 2019 920 692.4 3632.4 Shift Total 2019 1260 932.4 4212.4 O U T P U T Urine 325 131 035 5365 Urine 325 015 259 4304 Emesis 200 200 Emesis 200 200 Emesis 2 2 Drains 3 5 20 28 CSF Output (CSF Catheter Left;Frontal) 3 5 20 28 Other 5 5 Menstruation 1 1 EBL 5 5 Shift Total 333 208 566 7653 NET 1687 705 337.4 2729.4 Chemistries: Last [...] nervous system failure at t his time. [facility] DEPARTMENT: [id number] ICU NEURO Place of Service:- Inpatient Date of Service: 03/21/2012 CSN: [id number] Suggested Modifier: None Suggested CPT: TO PROCESS CAMERA OPERATOR This patient has been staffed with Dr. [...] - 03/20/2012 4:59 PM PST 7NSICU ATTENDING RECORDS MANAGEMENT ASSISTANT DAILY PROGRESS NOTE Team Pager: [phone] Attendin Date:03/20/2012 Critical Care Attending Physician: ROCKY SALAZAR MD Referring Attending P aylinsician: Nolvia Delgado MD I saw and evaluated the patient at the bedside together with Justino Tong (FLORAL DESIGNER SALESPERSON). Please see her note for details of the encounter. I reviewed the all data and the recent imaging available . I have discussed findings and plan of care with the primary team and the consultants [facility] ed. (Relevant data is listed at the [...] care and management of this patient . Rocyk Salazar MD [facility] DEPARTMENT: [id number] ICU NEURO Place of Service:- Inpatient Date of Service: 03/20/2012 CSN: [id number] Suggested Modifier: None Suggested CPT: TO PROCESS CAMERA OPERATOR RELEVANT DATA: Last Vitals: BP 113/66 | [...] -- MONOPERC -- BASOPERC -- EOS[facility]C [facility] - 03/20/2012 11:55 AM [facility] NEUROSURGERY POST OPERATIVE CHECK Author: PIA [...] FINDINGS: A&O to name, and hospital in [place]; believes it's 2011 (month unknown) Following commands, [...] Tracy | | | | | | [place], [place] | | | | | | [address] | | | | | | [phone] | | | | | | | [...] Nolvia Delgado M.D. | | | | Ticket Broker(s): Carlos Baron M.D. | | | | [...] | | AR / HS | | [id number] / [id number] / [id number] / | | | | | + [...] [facility] | [address] | [place] [address] | | | SERVICES, CORE | PARK [...] [facility] | [address] | [place] [address] | | | SERVICES, CORE | PARK [...] | + + + + + | [facility] | [address] | [place] [address] | | | SERVICES, CORE | HAYDEE [...] | + + + + + | [facility] | [address] | [place] [address] | | | SERVICES, CORE | HAYDEE [...] [facility] | [address] | [place] [address] | | | SERVICES, CORE | PARK [...] [facility] | [address] | [place] [address] | | | SERVICES, CORE | PARK [...] [facility] | [address] | [place] [address] | | | SERVICES, CORE | PARK [...] | + + + + + | [facility] | [address] | [place] [address] | | | SERVICES, CORE | HAYDEE [...] [facility] | [address] | [place] [address] | | | SERVICES, CORE | HAYDEE [...] | + + + + + | [facility] | [address] | [place] [address] | | | SERVICES, RYNE | HAYDEE [...] [facility] | [address] | [place], [place] | | | BOB POINT OF CARE | [facility] | [address] | | | TESTS | | | [...] [facility] | [address] | [place], [place] | | | BOB POINT OF CARE | [address] | [address] | | | TESTS | | | [...] + + + | [facility] | [address] | [place], [place] | | | KURT ROJAS OF A[place] | [address] | [address] | | | TESTS | | | [...] | + + + + + | [facility] | [address] | [place] [address] | | | SERVICES, CORE | HAYDEE [...] [facility] | [address] | [place] [address] | | | SERVICES, CORE | PARK [...] | + + + + + | [facility] | [address] | [place] [address] | | | [facility] | HAYDEE MACHUCA | | | + + + + + OPERATION RECORD (03/21/2012 1:59 PM PST) + + | Transcriptions | + + | Carlos Baron MD - 03/20/2012 11:00 PM PST | | Date: 03/20/2012 | | | | Attending Surgeon: Nolvia Delgado M.D. | | | | Ticket Broker(s): Carlos Baron M.D. | | | | [...] head was placed in a | | Grafton 3-pin headholder, and all pressure points were [...] The patient | | was removed from Grafton 3-pin headholder and extubated in the operating | | room. | | | | Counts: | | All sponge and needle counts were correct at the end of the case. | | | | | | Carlos Baron M.D. | | | | | | Nolvia Delgado M.D. | | | | DARNELL / WILMAR | | [id number] / [id number] / [id number] / | | | | | + [...] [facility] | [address] | [place], [place] | | | BOB POINT OF CARE | [facility] | [address] | | | TESTS | | | [...] [facility] | [address] | [place] [address] | | | SERVICES, CORE | PARK [...] | + + + + + | [facility] | [address] | [place] [address] | | | SERVICES, CORE | HAYDEE [...] [facility] | [address] | [place] [address] | | | SERVICES, CORE | HAYDEE [...] | | + +---------+ + + | [facility] DEPARTMENT OF | | | [...] [facility] | [address] | [place] [address] | | | SERVICES, CORE | PARK [...] [facility] | [address] | [place] [address] | | | SERVICES, CORE | PARK [...] | + + + + + | [facility] | [address] | [place] [address] | | | SERVICES, CORE | HAYDEE [...]
--- OUTSIDE RECORDS SUMMARY | ~2019-10-25 | XMS | Encounter Summary ---
Demographics + + + | Address | [address] | | | [place] [address] | + + + | Home Phone [...] [place] | | | | | [address] | | + + + + + | Scott Mcgarry ECON | Unknown | | + + + + + Care Team Providers + +------+ + | Care Marine Electronics Repairer Name | Role | Phone | [...] | hydrocephalu | [address] | [address] [place] | | | | | s (HCC) | [place], [place] | Research | | | | | Procedures | [address] | Center | | | | | MRI BRAIN WO | Phone: | [place], [place] | | | | | [address] CINE | [phone] | [address] | | | | | [address] | Fax: | Phone: | | | | | [facility] | [phone] | [phone] | | | | | RITA | | Fax: | | | | | | | [phone] | +--------+--------+ + + + + Encounter Details +--------+ + + + + | Date | Type | Department | Care Team | Description | +--------+ + + + + | 05/05/ | Party Host | Neurosurgery at | Chang, | Obstructive | | 2016 | | [facility] [address] | REENA Hunter | hydrocephalus | | | | [facility] for | [address] | (Primary Dx) | | | | Health and Healing, | [place], [place] | | | | | [facility] | [address] | | | | | floor [place], [place] | [phone] | | | | | [address] | | | | | | [phone] | | | +--------+ + + + [...] | | 2019 | Visit | | [address] | | | | | | [place], [place] | | | | | | [address] | | | | | | [phone] | | | | | | | [...] ESTELA | | | | | | MOGRAN 10/27/2015 9:56 | | | | | [...]
--- OUTSIDE RECORDS SUMMARY | ~2019-10-25 | XMS | Encounter Summary ---
Demographics + + + | Address | [address] | | | [place] [address] | + + + | Home Phone [...] [place] | | | | | [address] | | + + + + + | Scott Nicole | ECON | Unknown | | + + + + + Care Team Providers + +------+ + | Care Batch Still Operator Name | Role | Phone | [...] | | | | | PHYSICAL | [place], [place] | | | | | | THERAPY | [address] | | | | | | REFERRAL | Phone: | | | | | | | [phone] | | | | | | | Fax: | | | | | | | [phone] | | +--------+--------+ + + + + Diagnostic Testing (Routine) + +--------+ + + + + | Status | Reason | Specialty | Diagnoses / | Referred By | Referred To | | | | | Procedures | Contact | Contact | + +--------+ + + + + | New Request | | Radiology | Diagnoses | Yaghi, | Larue | | | | | Shunt | Jacky La MD | Health & | | | | | malfunction, | [address] | [employer] | | | | | sequela | [address] | [address] | | | | | Procedures | [address] | [address] | | | | | CT HEAD WO | [place], [place] | ROAD | | | | | CONTRAST | [address] | [place], [place] | | | | | | Phone: | [address] | | | | | | [phone] | Phone: | | | | | | Fax: | [phone] | | | | | | [phone] | | + +--------+ + + + [...] | | s (HCC) | Internal | [place], [place] | | | | | Procedures | Medicin | [address] | | | | | CO EST | [address] | Phone: | | | | | PATIENT | Goyo Hyman | [phone] | | | | | LEVEL V CO | Reji, | Fax: | | | | | REPROGRAMMIN | [place] [address] | [phone] | | | | | G,PROGRAMMAB | Phone: | | | | | | LE CSF SHUNT | [phone] | | | | | | | Fax: | | | | | | | [phone] | | + +--------+ + + + [...] | | | Ave Center for | [facility] [place] | | | | | Health and Healing, | [address] | | | | | | [phone] | | | | | floor [place], [place] | | | | | | [address] | | | | | | [phone] | | | +--------+---------+ + + + [...] PT Jacky Abebe MD Neurosurgery Resident Pager #[phone] Associated attestation - Nolvia Delgado MD - 10/17/2019 11:01 AM PD[facility] performed a history and physical examination of the patient and discussed her management with the resident. I reviewed the resident s note and agree with the documented findings and plan of care. Nolvia Delgado MD NEUROSURGERY AT [address] [facility], [address], [address]th [place] [address] documented in this encounter Plan of Treatment +--------+---------+ + + + | Date | Type | Specialty | Care Team | Description | +--------+---------+ + + + | 11/24/ | Office | Neurological Surgery | Nolvia Delgado, | | 2019 | Visit | | [address] | | | | | | [place], [place] | | | | | | [address] | | | | | | [phone] | | | | | | | [...]
--- OUTSIDE RECORDS SUMMARY | ~2019-10-25 | XMS | Encounter Summary ---
Demographics + + + | Address | [address] | | | [place] [address] | + + + | Home Phone [...] [place] | | | | | [address] | | + + + + + | Scott Nicole | ECON | Unknown | | + + + + + Care Team Providers + +------+ + | Care Pipe Line Gauger Name | Role | Phone | + [...] | | | | s ([facility]) | [address] | | | | | | Procedures | [place], [place] | | | | | | [place] | [address] | | | | | | CONTRAST | Phone: | | | | | | | [phone] | | | | | | | Fax: | | | | | | | [phone] | | +--------+--------+ + + + + [...] | | | | s ([facility]) | [address] | | | | | | Procedures | [place], [place] | | | | | | [place] | [address] | | | | | | CONTRAST | Phone: | | | | | | | [phone] | | | | | | | Fax: | | | | | | | [phone] | | +--------+--------+ + + + + [...] | | | | | [facility] [place] for | [place], [place] | | | | | Health and Healing, | [address] | | | | | [address] | [phone] | | | | | Floor [place], [place] | | | | | | [address] | | | | | | [phone] | | | +--------+ + + + [...] Tracy | | | | | | [place], [place] | | | | | | [address] | | | | | | [phone] | | | | | | | [...] Note | + -----+ | Service Account, Extole Res In Interface - 08/28/2017 10:31 AM [...]
--- OUTSIDE RECORDS SUMMARY | ~2019-10-25 | XMS | Encounter Summary ---
Demographics + + + | Address | [address] | | | [place] [address] | + + + | Home Phone [...] [place] | | | | | [address] | | + + + + + | Scott Nicole | ECON | Unknown | | + + + + + Care Team Providers + +------+ + | Care College Coach Name | Role | Phone | [...] Rossana | | | | | [facility] | [place], [place] | | | | | Health and Healing, | [address] | | | | | [facility] | [phone] | | | | | floor [place], [place] | | | | | | [address] | | | | | | [phone] | | | +--------+ + + + [...] | | 2019 | Visit | | [address] | | | | | | [place], [place] | | | | | | [address] | | | | | | [phone] | | | | | | | | +--------+---------+ + + + documented as of this encounter Visit Diagnoses Not on filedocumented in this encounter"
--- OUTSIDE RECORDS SUMMARY | ~2019-10-25 | XMS | Encounter Summary ---
Demographics + + + | Address | [address] | | | [place] [address] | + + + | Home Phone [...] [place] | | | | | [address] | | + + + + + | Scott Mcgarry ECON | Unknown | | + + + + + Care Team Providers + +------+ + | Care Retort Or Condenser Press Operator Name | Role | Phone [...] | | | | | Procedures | [place], [place] | Research | | | | | MRI BRAIN WO | [address] | Center | | | | | CONTRAST | Phone: | [place], [place] | | | | | | [phone] | [address] | | | | | | Fax: | Phone: | | | | | | [phone] | [phone] | | | | | | | Fax: | | | | | | | [phone] | +--------+--------+ + + + + Reason [...] | | | Ave Center for | [place], [place] | | | | | Health and Healing, | [address] | | | | | [facility] | [phone] | | | | | floor [place], [place] | | | | | | [address] | | | | | | [phone] | | | +--------+---------+ + + + [...] Tracy | | | | | | [place], [place] | | | | | | [address] | | | | | | [phone] | | | | | | | [...] | + +---------+ + + | [facility] DEPARTMENT OF | | | | | RADIOLOGY | | | | + +---------+ + + documented in this encounter Visit Diagnoses + + | Diagnosis | + + | Hydrocephalus (HCC) - Primary Obstructive hydrocephalus | + + documented in this encounter"
--- OUTSIDE RECORDS SUMMARY | ~2019-10-25 | XMS | Encounter Summary ---
Demographics + + + | Address | [address] | | | [place] [address] | + + + | Home Phone | | + + + | Preferred Language | Unknown | + + + | Marital Status | Single | + + + | Worship Affiliation | NRP | + + + [...] [place] | | | | | [address] | | + + + + + | Scott Mcgarry ECON | Unknown | | + + + + + Care Team Providers + +------+ + | Care Mold Design Engineer Name | Role | Phone | [...] SW | | | | | | ([facility]) | [address] | | | | | | Procedures | [place], [place] | | | | | | PHYSICAL | [address] | | | | | | THERAPY | Phone: | | | | | | REFERRAL | [phone] | | | | | | | Fax: | | | | | | | [phone] | | +--------+--------+ + + + + [...] + + | 09/20/ | Hospital | [facility] [address] | Nolvia Delgado, | | | 2017 - | Encounter | [address] | [address] | | | | | [id number] [facility] | [place], [place] | | | 09/24/ | | [facility], | [address] | | | 2016 | | [place] [facility] | [phone] | | | | | [phone] | | | +--------+ + + + [...] Nolvia Delgado MD PCP: REENA Gusman Service: [facility] Neurosurgery Diagnoses Principal Final Diagnosis: Bilateral chronic subdural hematomas Additional Diagnoses: Blindness History of toxoplasmosis History of recent VPS placement (Strata @ 2.5) Procedures Procedure Performed: 09/20/2016 1) Bilateral [place] Holes for evacuation of chronic subdural hematomas [...] surgical intervention. The patient was admitted to [facility] on 09/20/2016 and underwent Bilateral [place] Holes for evacuat ion of chronic subdural [...] The patient will follow up in the [facility] Neurosurgery clinic on 10/10/2016 with repeat Head [...] be on the 8th floor at the [facility] on the [facility] located at [address] [place] [address]. Please call [phone] if you have any questions or concerns before your appointment time. You will need to obtain a head CT prior to this appointment at 12:45pm on the 3rd floor at [facility]. PCP:REENA Gusman When: Please follow-up with [...] 10:50 AM Discharging Attending: Nolvia Delgado MD [address] [address] [place] [address] documented in this encounter Medications at Time [...] this AM. [facility]. -Large BM yesterday [...] in all 4 extremities Motor: Tri Bi Water Control Station Engineer HF KF KE APF ADF Left 5 [...] today with OP PT Dimple Sage PA-C [facility] [address] [address]/[facility] [place] [address] Kristen Cazares PA - 09/23/2016 8:22 AM [...] Delivery Device: None (room ai r) (09/23/16 0427) 24 Hour Vital Min/Max: Systolic (24hrs), Av [...] - 1.10 mg/dL 0.55 (L) EGFR - TURKMEN Latest Ref Range: >60 mL/min >60 EGFR NON -TURKMEN Latest Ref Range: >60 mL/min >60 GLUCOSE, [...] repeat Head CT prior. Kristen Chang PA-C [facility] 10K [address] [facility] [address]/[address] [place] [address] MEDICATIONS Current Facility-Administered Medications Medication acetaminophen (TYLENOL) [...] M.D., M.P.H. Neurological Surgery Resident PGY-1 Pager: [phone] Cindy Rangel [facility] - 09/21/2016 4:20 PM PDT . Neuroscience Intensive Care Unit Team Progress Note NSICU ASSIGNED #[id number] ICU Admission Reason Most Recent Value ICU [...] Multiple EVD placements, now s/p R occipital DRUM SEALER shunt placement in October [address] [...] team members Provider Role Specialty Ipt Neurosurgery #[id number] Treatment Team Neurological Surgery Ipt Critical Care Nsicu #[id number] Treatment Team -- Patient Lines/Drains/Airways Status Active [...] ICU NEURO Place of Service:- Inpatient CSN: [id number] Suggested Modifier: None Suggested CPT: TO SEWER PIPE OFFBEARER Cindy Flores NP Author:Cindy Flores NP [place] [address] [address] [place] [address] Sujata Webster MD - 09/21/2016 12:21 PM PDTFormatting of this note might be different f rom the original. . Neuroscience Intensive Care Unit Attending Progress Note Attending Pager #[phone] ICU Admission Reason Most Recent Value ICU [...] team members Provider Role Specialty Ipt Neurosurgery #[id number] Treatment Team Neurological Surgery Ipt Critical Care Nsicu #[id number] Treatment Team -- Code Status Code Status [...] on counseling and coordination of care.Seen with PA/COMPLIANCE ASSOCIATE Ms. Flores. Please s ee their note for details. I reviewed the documented findings, all data and the recent imagi ng available. Date of Service: 09/21/2016 [facility] DEPARTMENT: ANE ICU NEURO Place of Service:- Inpatient CSN: [id number] Suggested Modifier: GC - Resident Involved Suggested CPT: TO SEWER PIPE OFFBEARER Author:Sujata Saba MD [address] [address] [place] [address]Kftjlfcrgahyng signed by Sujata Saba MD at 09/21/2016 [...] transfer in PM Please page adult resident guncotton packer [phone] with questions Bebeto Sanders MD Neurological Surgery [...] Barclay MD Neurosurgery, PGY-2 On-call resident pager [phone] 6:17 PM 09/20/2016 Nata Golden M D - 09/20/2016 2:11 PM PDTHistory and Physical Update 09/20/2016 Patient's history and physical has been reviewed with patient. There have been no changes s chandni last seen by neurosurgery team. Proceed with planned operation. Patient is blind and c annot write. Consent obtained with [place] [id number] Chief Resident Neurological Surgery documented in thi s encounter Plan of Treatment +--------+---------+ + + + | Date | Type | Specialty | Care Team | Description | +--------+---------+ + + + | 11/24/ | Office | Neurological Surgery | Nolvia Delgado, | | | 2019 | Visit | | [address] | | | | | | [place], [place] | | | | | | [address] | | | | | | [phone] | | | | | | | [...] 09/20/2016 | | Attending Surgeon:Nolvia Delgado MD Muck Miner(s):Nata | | MD Ashish Preoperative Diagnoses: 1.Bilateral [...] | obtain meticulous hemostasis. Using a high-speed clinical pharmacologist drill, 2 bur holes were | | [...] used to coagulate the skin edges. A clinical pharmacologist drill was used to make these 2 [...] end x2.Nata Wolf | | [facility]: 09/23/2016 10:18:38DT: 09/23/2016 | | 13:02:59Job #: [id number] | |Nata Hinojosa MD | | | | | |Nolvia Delgado MD | |[facility]/MODL | | | | | | /[id number] | + + CBC (HEMOGRAM) ONLY (09/23/2016 [...] [facility] [place] | [address] | [place] [address] | | | SERVICES, RYNE | HAYDEE [...] | | | LABORATORY | | | TURKMEN | | | SERVICES, | | | [...] [facility] [place] | [address] | [place] [address] | | | SERVICES, CORE | HAYDEE [...] | + + + + + | [facility] | [address] | [place] [address] | | | SERVICES, CORE | PARK [...] (H) | 60 - 99 mg/dL | [facility] - | | | GLUCOSE, | | [...] HUNTER | [address] | [place], [place] | | | K[facility] RO[place] OF [place] | [facility] | [address] | | | TESTS | | | [...] [facility] [place] | [address] | [place] [address] | | | SERVICES, CORE | HAYDEE [...] | | | LABORATORY | | | TURKMEN | | | SERVICES, | | | [...] [facility] | [address] | [place] [address] | | | SERVICES, CORE | PARK [...] | + + + + + | [facility] | [address] | [place] [address] | | | JUANA, [facility] | [address] | | | + + + + + CAPILLARY BLOOD GLUCOSE (NO CHG), POC (09/21/2016 7:52 PM PDT) + +---------+ + + + | Component | Value | Ref Range | Performed | Pathologist | | | | | At | Signature | + +---------+ + + + | BLOOD | 117 (H) | 60 - 99 mg/dL | [facility] - | | | GLUCOSE, | | [...] HUNTER | [address] | [place], [place] | | | KURT ROJAS OF CARE | [address] | [address] | | | TESTS | | | [...] [facility] | [address] | [place] [address] | | | SERVICES, CORE | PARK [...] | | | LABORATORY | | | TURKMEN | | | SERVICES, | | | [...] [facility] | [address] | [place] [address] | | | SERVICES, CORE | [address] | | | + + + + + INR (09/21/2016 12:34 AM PDT) + +-------+ + + + | Component | Value | Ref Range | Performed | Pathologist | | | | | At | Signature | + +-------+ + + + | INR | 1.04 | 0.90 - 1.20 INR | [facility] | | | | | | LABORATORY [...] | + + + + + | [facility] | [address] | [place] [address] | | | SERVICES, RYNE | PARK [...] HUNTER | [address] | [place], [place] | | | KURT RO[place]AS OF [place] | [facility] | [address] | | | TESTS | | | [...] Luis F Hinojosa MD | | | [address] Chief Resident Neurosurgery | | + + [...] MIRIAM HUNTER | [address] | [place], [place] | | | BBO KEMP OF [facility] | [address] | [address] | | | TESTS | | | [...]
--- OUTSIDE RECORDS SUMMARY | ~2019-10-25 | XMS | Encounter Summary ---
Demographics + + + | Address | [address] | | | [place] [address] | + + + | Home Phone [...] [place] | | | | | [address] | | + + + + + | Scott Mcgarry ECON | Unknown | | + + + + + Care Team Providers + +------+ + | Care Hospital Educator Name | Role | Phone | + [...] | | | | | hydrocephalu | [address] | Ave | | | | | s ([facility]) | [facility] | [place], [place] | | | | | Procedures | Rd | [address] | | | | | CONSULT TO | [place] | Phone: | | | | | NEUROSURGERY | [address] | [phone] | | | | | [place] NEW | Phone: | Fax: | | | | | PATIENT | [phone] | [phone] | | | | | LEVEL V [place] | Fax: | | | | | | EST PATIENT | [phone] | | | | | | LEVEL [...] + +--------+ + + + + | Pending | | Spine | | Non-[facility] | Nathaniel Ybarra | | Review | | | | Epic Dept | MD Kian [address] | | | | | | [address] | | | | | | | [place], [place] | | | | | | | [address] | | | | | | | Phone: | | | | | | | [phone] | | | | | | | Fax: | | | | | | | [phone] | + +--------+ + + + + Encounter Details +--------+---------+ + + + | Date | Type | Department | Care Team | Description | +--------+---------+ + + + | 05/04/ | Office | Spine Center at | Nathaniel Ybarra MD | Obstructive | | 2017 | Visit | [facility] [address] | [address] | hydrocephalus | | | | Mailcode: Center | [facility] [place] | (Primary Dx) | | | | for Health and | [address] | | | | | Healing, Building [address] | [phone] | | | | | [place], [place] | | | | | | [address] | | | | | | [phone] | | | +--------+---------+ + + + [...] documented as of this encounter Progress Notes Ada Wiley MD,PhD - 07/18/2016 3:35 PM PDT NEUROSURGERY CLINIC HISTORY & PHYSICAL EXAMINATION Author: Ada Wiley MD,PhD Date: 07/18/2016 Attending Physician: Tate PCP: REENA Gusman HPI: Ms. Casas is a 46 y/o F with hx of toxoplasmosis, viral meningitis, aqueductal jamie nosis and shunted HCP (R occipital VPS, strata 1.0) who presented to the ED 2 weeks ago with complaint that her spasticity was worsening, preventing her from performing her ADL's as sh e usually did. At that time, her CT was dialed down from 2.0 to 1.0, and she was started on oral baclofen. She returns for 2 weeks follow up. Mom and Ms. Casas state that they have not iced an improvement in her symptoms. She is now more easily about to feed herself, and her a mbulation is better. Ms. Casas denies any symptoms including RAHMAN, N/V, changes in alertness. She has been very active. She has very poor vision at baseline. ALLERGIES: No Known Allergies Past Medical History: Diagnosis Date Blindness of both eyes, impairment level not further specified Cerebral palsy (HCC) Epilepsy, partial (HCC) H/O hydrocephalus Legally blind S/P placement of VNS (vagus nerve stimulation) device 2000 Seizures (HCC) Spastic quadriparesis (HCC) Past Surgical History Procedure Laterality Date Ankle surgery Ventriculostomy Implantation of vagal nerve stimulator 2000 Social History Substance Use Topics Smoking status: Never Smoker Smokeless tobacco: Never Used Alcohol use 0.0 - 1.8 oz/week 0 - 3 Cans of beer per week Comment: 3 glasses of beer per week Social History Narrative None on file PHYSICAL EXAM: There were no vitals taken for this visit. General Appearance: NAD, Cooperative NEUROLOGICAL EXAM: Awake, alert. Ox3, readily participates in exam, and answers questions appropriately. EOMI's grossly. Face grossly symmetric ROSA and AG, Right > Left hand clawed ASSESSMENT/PLAN: Ms. 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 Her shunt was turned down from 2.[address] today demonstrates stable ventricular size. There is a very small R SDH, without any compression or MLS. Clinically, she is doing very well, wit hout symptoms c/w increased ICP. Her spasticity seems improved, which may be more likely att ributed to the starting baclofen. We talked about the possibility of an intrathecal baclofen trial, leading to a baclofen pum p if she gains benefit. Mom and Ms. Casas are very interesting in pursuing this therapy. We will refer to Dr. Delgado's clinic for this. From a shunt standpoint, she only needs to foll ow up in Dr. Ybarra's clinic as needed Ada Wiley MD,PhD This case has been discussed with Dr. Ybarra, attending neurological surgeon, who is in agree ment with the assessment and plan as defined. Ada Wiley MD,PhD Ada Wiley MD,PhD Neurological Surgery, PGY-5 Associated attestation - Nathaniel Ybarra MD - 07/18/2016 3:44 PM PDT46 yo F s/p INSURANCE VERIFICATION REPRESENTATIVE shunt ambreen cement. Came to ER a couple weeks ago with worsening spasticity. Was started on baclofen and also had her shunt dialed down to 1.0. Today, states her spasticity has improved. Denies RAHMAN . On exam, A/O x 3, no drift, FC x 4. Head CT shows very skim SDH on the left. Will refer to Dr. Delgado for intrathecal baclofen trial. Can f/u with me for shunt on an as-needed basis. Nathaniel Ybarra MD [facility] AT [address] [address] documented in this encounter Plan of Treatment +--------+---------+ + + + | Date | Type | Specialty | Care Team | Description | +--------+---------+ + + + | 11/24/ | Office | Neurological Surgery | Nolvia Delgado, | | | 2019 | Visit | | [address] | | | | | | [place], [place] | | | | | | [address] | | | | | | [phone] | | | | | | | | +--------+---------+ + + + documented as of this encounter Visit Diagnoses + + | Diagnosis | + + | Obstructive hydrocephalus (HCC) - Primary Obstructive hydrocephalus | + + documented in this encounter"
--- OUTSIDE RECORDS SUMMARY | ~2019-10-25 | XMS | Encounter Summary ---
Demographics + + + | Address | [address] | | | [place] [address] | + + + | Home Phone [...] [place] | | | | | [address] | | + + + + + | Scott Mcgarry ECON | Unknown | | + + + + + Care Team Providers + +------+ + | Care Dye Box Operator Name | Role | Phone | [...] | | | | | THERAPY | [place], [place] | | | | | | REFERRAL | [address] | | +--------+--------+ + + + + [...] | | | | | CONTRAST | [place], [place] | | | | | | | [address] | | +--------+--------+ + + + + [...] Hydrocephalus | | 2016 | Visit | [facility] | H, PAElmerC | (Primary Dx) | | | | and Healing [address] | | | | | [address] [facility] for | | | | | | Health and Healing, | | | | | | Building , | | | | | | Floor [place], [place] | | | | | | [address] | | | | | | [phone] | | | +--------+---------+ + + + [...] no erythema or edema, dissolvable sutures Motor: Molder Floor Bicep Tricep Delt R 4+ 4+ 4+ [...] the report as now presented. Assesment: Rin Csaas is a 45 y.o. female s/p Stealth-guided [...] y will contact the clinic. NEUROSURGERY AT [place] [address] Mailcode: [place] [id number] documented in th is encounter Plan of Treatment +--------+---------+ + + + | Date | Type | Specialty | Care Team | Description | +--------+---------+ + + + | 11/24/ | Office | Neurological Surgery | Nolvia Delgado, | | | 2019 | Visit | | [address] | | | | | | [place], [place] | | | | | | [address] | | | | | | [phone] | | | | | | | [...]
--- OUTSIDE RECORDS SUMMARY | ~2019-10-25 | XMS | Encounter Summary ---
Demographics + + + | Address | [address] | | | [place] [address] | + + + | Home Phone [...] + + + | Author | [facility] | + + + | Organization | [facility] | + + + | Address | Unknown | + + + | Phone | Unavailable | + + + Support + + + + + | Name | Relationship | Address | Phone | + + + + + | Malina Nicole | ECON | [address] | | | | | [place] | | | | | [address] | | + + + + + | Scott Nicole | ECON | Unknown | | + + + + + Care Team Providers + +------+ + | Care Corporate Strategy Intern Name | Role | Phone | + [...] | | | | Acute on | [place], [place] | Health and | | | | | chronic | [address] | Healing, | | | | | intracranial | Phone: | Building 1, | | | | | subdural | [phone] | 3rd Floor | | | | | hematoma | Fax: | [place], [place] | | | | | (HCC) | [phone] | [address] | | | | | Procedures | | Phone: | | | | | CT HEAD WO | | [phone] | | | | | CONTRAST [place] | | Fax: | | | | | CT | | [phone] | | | | | SCAN,HEAD/BR | [...] | | | | | [address] [place] for | [address] | | | | | Health and Healing, | [place], [place] | | | | | [place] [address], unm hospital | [address] | | | | | Floor [place], [place] | [phone] | | | | | [address] | | | | | | [phone] | | | +--------+ + + + [...] | | 2020 | Visit | | [address] | | | | | | [place], [place] | | | | | | [address] | | | | | | [phone] | | | | | | | [...] Note | + + | Service Account, Lemon Res In Interface - 07/09/2018 12:52 PM [...]
--- OUTSIDE RECORDS SUMMARY | ~2019-10-25 | XMS | Encounter Summary ---
Demographics + + + | Address | [address] | | | [place] [address] | + + + | Home Phone [...] [place] | | | | | [address] | | + + + + + | Scott Mcgarry ECON | Unknown | | + + + + + Care Team Providers + +------+ + | Care Conduit Installer Name | Role | Phone | [...] Ras[place], | | | | Surgery | Congenital | Nolvia Liang MD | Nolvia Liang MD | | | | | hydrocephalu | [address] | [address] | | | | | s (HCC) | Ave | Ave | | | | | Procedures | [place], [place] | [place], [place] | | | | | REQUEST TO | [address] | [address] | | | | | SURGERY | Phone: | Phone: | | | | | MARKETING ANALYTICS MANAGER | [phone] | [phone] | | | | | [place] | Fax: | Fax: | | | | | VENTRICULO-C | [phone] | [phone] | | | | | ISTERNOSTOMY | | | | | | | ,3RD | | | | | | | VENT,STEREO | | | | | | | DC CREATE | | | | | | | SHUNT:VENTRI | [...] Description | +--------+---------+ + + + | 08/05/ | Office | Neurosurgery at | Raslan, Nolvia Liang, | Congenital | | 2013 | Visit | [facility] [address] | MD [address] | hydrocephalus (HCC) | | | | Ave Center for | [place], [place] | (Primary Dx) | | | | Health and Healing, | [address] | | | | | [facility] | [phone] | | | | | floor [place], [place] | | | | | | [address] | | | | | | [phone] | | | +--------+---------+ + + + [...] + + + | Blood Pressure | 133/87 | 08/05/2013 2:03 PM | | | | | PDT | | + + + + + | Pulse | 75 | 08/05/2013 2:03 PM | | | | | PDT | | + + + + + | Temperature | 36.4 C (97.6 F) | 08/05/2013 2:03 PM | | | | | PDT [...] encounter Progress Notes Nolvia Delgado MD - 08/05/2013 2:29 PM PDTFormatting of this note might be different fro m the original. September 15, redo ETSita Rin returns today with return of symptoms of spasticity and weakness. She had a recent MR Tyree. Filed Vitals 08/05/2013 2:03 PM BP: 133/87 Pulse: 75 Temp: 36.4 C (97.6 F) TempSrc: Forehead PainSc: 0 - Zero Neurological exam: Alert, oriented X 3, fluent speech, and good historian. Sensation to touch in face is present and symmetrical. Faces symmetrical. Hearing grossly i ntact. Tongue protrudes into midline. Palate elevates at midline. Good SCM and Trapezius mus jarad function bilaterally. Restring tremor. Extremity exam: Right [...] Left PF 5/5 Left EHL 5/5 Reflexes: Not tested Sensory exam in extremities: SILT in the bilat UE Pt in wheelchair, gait not tested MRI: Same size of large ventricles, no evidence of open hole at the floor of third ventricle sug gesting sealing the ETV. AP: A 43 years old female with acqueductal stenosis s/p ETV and initial improvement and recurre nce of symptoms three months later suggesting sealed ETV hole. Recommend redo RTV using flex ible scope. documented in this en counter Plan of Treatment +--------+---------+ + + + | Date | Type | Specialty | Care Team | Description | +--------+---------+ + + + | 11/24/ | Office | Neurological Surgery | Nolvia Delgado, | | | 2019 | Visit | | [address] | | | | | | [place], [place] | | | | | | [address] | | | | | | [phone] | | | | | | | | +--------+---------+ + + + + +------+--------+ + + | Name | Type | Priori | Associated Diagnoses | Order Schedule | | | | ty | | | + +------+--------+ + + | 12 LEAD ECG | ECG | Routin | Congenital | Expected: 08/10/2013 | | | | e | hydrocephalus ([facility]) | | + +------+--------+ + + documented as of this encounter Visit Diagnoses + + | Diagnosis | + + | Congenital hydrocephalus (HCC) - Primary Congenital hydrocephalus | + + documented in this encounter"
--- OUTSIDE RECORDS SUMMARY | ~2019-10-25 | XMS | Encounter Summary ---
Demographics + + + | Address | [address] | | | [place] [address] | + + + | Home Phone [...] [place] | | | | | [address] | | + + + + + | Scott Mcgarry ECON | Unknown | | + + + + + Care Team Providers + +------+ + | Care Meat Manager Name | Role | Phone | [...] | | Hydrocephalu | PA-C [address] | [facility] | | | | | s (HCC) | [facility] | [facility] | | | | | Procedures | [facility] | Hospital, | | | | | CT HEAD WO | Rd | 10th Floor | | | | | CONTRAST [place] | [facility], [place] | [place], [place] | | | | | [place] | [address] | [address] | | | | | SCAN,HEAD/BR | | Phone: | | | | | AIN,W/O | | [phone] | | | | | CONTRAST | | Fax: | | | | | MATL | | [phone] | +--------+--------+ + + + + Reason [...] | | | | | Hydrocephalu | PAElmerC [address] | [address] | | | | | s (HCC) | [facility] | [address] [facility] | | | | | Procedures | [facility] | Hospital, | | | | | CT HEAD WO | Rd | 10th Floor | | | | | CONTRAST [place] | [place], [place] | [place], [place] | | | | | [place] | [address] | [address] | | | | | SCAN,HEAD/BR | | Phone: | | | | | AIN,W/O | | [phone] | | | | | CONTRAST | | Fax: | | | | | MATL | | [phone] | +--------+--------+ + + + + Encounter Details +--------+ + + + + | Date | Type | Department | Care Team | Description | +--------+ + + + + | 07/18/ | Hospital | Diagnostic Imaging | Jeannine Hebert | | | 2016 | Encounter | Services at [facility] | H, SIMÓN | | | | | [address] | | | | | | [address] [facility] | | | | | | Hospital, 10th Floor | | | | | | [place], [place] | | | | | | [address] | | | | | | [phone] | | | +--------+ + + + [...] [address] | | | | | | [place], [place] | | | | | | [address] | | | | | | [phone] | | | | | | | | +--------+---------+ + + + documented as of this encounter Procedures + +--------+ + + + | Procedure Name | Priori | Date/Time | Associated Diagnosis | Comments | | | ty | | | | + +--------+ + + + | CT HEAD WO CONTRAST | Routin | 07/18/2016 | Hydrocephalus | Results for this | | | e | 12:09 PM | | procedure are in the [...] | + + | Service Account, Radha Res In Interface - 07/18/2016 12:22 PM [...]
--- OUTSIDE RECORDS SUMMARY | ~2019-10-25 | XMS | Encounter Summary ---
Demographics + + + | Address | [address] | | | [place] [address] | + + + | Home Phone | | + + + | Preferred Language | Unknown | + + + | Marital Status | Single | + + + | Church Affiliation | NRP | + + + [...] [place] | | | | | [address] | | + + + + + | Scott Nicole | ECON | Unknown | | + + + + + Care Team Providers + +------+ + | Care Preschool Teacher Name | Role | Phone | [...] floor | | | | | | [place], [place] | | | | | | [address] | | | +--------+ + + + [...] Tracy | | | | | | [place], [place] | | | | | | [address] | | | | | | [phone] | | | | | | | | +--------+---------+ + + + documented as of this encounter Visit Diagnoses Not on filedocumented in this encounter"
--- OUTSIDE RECORDS SUMMARY | ~2019-10-25 | XMS | Encounter Summary ---
Demographics + + + | Address | [address] | | | [place] [address] | + + + | Home Phone [...] [place] | | | | | [address] | | + + + + + | Scott Nicole | ECON | Unknown | | + + + + + Care Team Providers + +------+ + | Care Hopper Feeder Name | Role | Phone | + [...] | Event | Medicine Clinic at | [place], [place] | | | | | [facility] | [address] | | | | | [address] | | | | | | [facility] | | | | | | and Healing, | | | | | | Building [address] | | | | | | [place], [place] | | | | | | [address] | | | | | | [phone] | | | +--------+ + + + [...] Tracy | | | | | | [place], [place] | | | | | | [address] | | | | | | [phone] | | | | | | | | +--------+---------+ + + + documented as of this encounter Visit Diagnoses Not on filedocumented in this encounter"
--- OUTSIDE RECORDS SUMMARY | ~2019-10-25 | XMS | Encounter Summary ---
Demographics + + + | Address | [address] | | | [place] [address] | + + + | Home Phone [...] [place] | | | | | [address] | | + + + + + | Scott Mcgarry ECON | Unknown | | + + + + + Care Team Providers + +------+ + | Care Director Of Strategic Communications Name | Role | Phone | + [...] + + | 02/02/ | Hospital | [facility] [address] | Ciara Clement MD | | | 2011 | Encounter | [address] | [address] | | | | | [address] [place] [address] | [address] [place], | | | | | [place], [place] | [place] [address] | | | | | [address] | [phone] | | | | | [phone] | | | | | | | Aden Kumar MD | | | | | | [address] | | | | | | Jaida Escalante [place], | | | | | | [place] [address] | | | | | | [phone] | | | | | | | [...] Discharge Instructions Instructions Norma Romero RN - 02/03/2012[place] Care Instructions: CT/Myelogram Call your doctor if [...] otherwise by your doctor. Call or the [facility] paging drum operator at and ask for the Neuro Radiologist exceptional children's teacher if you have any of the following symptoms: Stiffness in neck Severe headache Backache Changes in your vision (sight) Weakness, pain or numbness in arms or legs Nausea or vomiting Problems urinating How to reach your doctor Call the hospital drum operator at . Ask for the Drafter Geophysical exceptional children's teacher. If you need to see a doctor, go to the Emergency room. If you have an emergency requiring immediate care, call 601. documented in this encounter Medications at Time [...] | | 2019 | Visit | | [address] | | | | | | [place], [place] | | | | | | [address] | | | | | | [phone] | | | | | | | [...] | | | | | | FINDINGS: Direct Service Provider | | | | | | films: [...] | | + +---------+ + + | [facility] DEPARTMENT OF | | | | [...] | | | | | | FINDINGS: Direct Service Provider | | | | | | films: [...]
--- OUTSIDE RECORDS SUMMARY | ~2019-10-25 | XMS | Encounter Summary ---
Demographics + + + | Address | [address] | | | [place] [address] | + + + | Home Phone [...] [place] | | | | | [address] | | + + + + + | Scott Nicole | ECON | Unknown | | + + + + + Care Team Providers + +------+ + | Care Gas Station Operator Name | Role | Phone | [...] Ave | | | | | Ave [place] for | [place], [place] | | | | | Health and Healing, | [address] | | | | | Building | [phone] | | | | | floor [place], [place] | | | | | | [address] | | | | | | [phone] | | | +--------+ + + + [...] | | 2019 | Visit | | [address] | | | | | | [place], [place] | | | | | | [address] | | | | | | [phone] | | | | | | | | +--------+---------+ + + + documented as of this encounter Visit Diagnoses Not on filedocumented in this encounter"
--- OUTSIDE RECORDS SUMMARY | ~2019-10-25 | XMS | Encounter Summary ---
Demographics + + + | Address | [address] | | | [place] [address] | + + + | Home Phone [...] [place] | | | | | [address] | | + + + + + | Scott Mcgarry ECON | Unknown | | + + + + + Care Team Providers + +------+ + | Care Donor Specialist Name | Role | Phone | [...] | | | | Acute on | [place], [place] | Health and | | | | | chronic | [address] | Healing, | | | | | intracranial | Phone: | Building 1, | | | | | subdural | [phone] | 3rd Floor | | | | | hematoma | Fax: | [place], [place] | | | | | (HCC) | [phone] | [address] | | | | | Procedures | | Phone: | | | | | CT HEAD WO | | [phone] | | | | | CONTRAST [place] | | Fax: | | | | | CT | | [phone] | | | | | SCAN,HEAD/BR | [...] | | | | Acute on | [place], [place] | Health and | | | | | chronic | [address] | Healing, | | | | | intracranial | Phone: | Building 1, | | | | | subdural | [phone] | 3rd Floor | | | | | hematoma | Fax: | [place], [place] | | | | | (HCC) | [phone] | [address] | | | | | Procedures | | Phone: | | | | | CT HEAD WO | | [phone] | | | | | CONTRAST [place] | | Fax: | | | | | CT | | [phone] | | | | | SCAN,HEAD/BR | [...] REENA Hunter | | | | | [facility] [place] [facility] | [address] [facility] | | | | | Health and Healing, | [place], [place] | | | | | [address] | [address] | | | | | Floor [place], [place] | [phone] | | | | | [address] | | | | | | [phone] | | | +--------+ + + + [...] 11/24/ | Office | Neurological Surgery | Novlia Delgado, | | | 2020 | Visit | | [address] | | | | | | [place], [place] | | | | | | [address] | | | | | | [phone] | | | | | | | [...] space, | | | this is likely customer retention representative of small clots. Soft tissues: | [...] in the subdural space, this is likely customer retention representative of small | | clots.Soft tissues: [...]
--- OUTSIDE RECORDS SUMMARY | ~2019-10-25 | XMS | Encounter Summary ---
Demographics + + + | Address | [address] | | | [place] [address] | + + + | Home Phone [...] [place] | | | | | [address] | | + + + + + | Scott Nicole | ECON | Unknown | | + + + + + Care Team Providers + +------+ + | Care Garage Door Service Technician Name | Role | Phone | [...] Ave | | | | | Ave [place] for | [place], [place] | | | | | Health and Healing, | [address] | | | | | [facility] | [phone] | | | | | floor [place], [place] | | | | | | [address] | | | | | | [phone] | | | +--------+--------+ + + + [...] Tracy | | | | | | [place], [place] | | | | | | [address] | | | | | | [phone] | | | | | | | | +--------+---------+ + + + documented as of this encounter Visit Diagnoses Not on filedocumented in this encounter"
--- OUTSIDE RECORDS SUMMARY | ~2019-10-25 | XMS | Encounter Summary ---
Demographics + + + | Address | [address] | | | [place] [address] | + + + | Home Phone [...] [place] | | | | | [address] | | + + + + + | Scott Mcgarry ECON | Unknown | | + + + + + Care Team Providers + +------+ + | Care Protective Officer Name | Role | Phone | [...] | | | | | subdural | [place], [place] | Health and | | | | | hematoma | [address] | Healing, | | | | | (HCC) | Phone: | Building 1, | | | | | Procedures | [phone] | 3rd Floor | | | | | CT HEAD WO | Fax: | [place], [place] | | | | | [place] | [phone] | [address] | | | | | CT | | Phone: | | | | | SCAN,HEAD/BR | | [phone] | | | | | AIN,W/O | | Fax: | | | | | CONTRAST | | [phone] | | | | | MATL | [...] | | | | | subdural | [place], [place] | Health and | | | | | hematoma | [address] | Healing, | | | | | (HCC) | Phone: | Building 1, | | | | | Procedures | [phone] | 3rd Floor | | | | | CT HEAD WO | Fax: | [place], [place] | | | | | [place] | [phone] | [address] | | | | | CT | | Phone: | | | | | SCAN,HEAD/BR | | [phone] | | | | | AIN,W/O | | Fax: | | | | | CONTRAST | | [phone] | | | | | MATL | [...] Healing, | | | | | | [facility] 1, 3rd | | | | | | Floor [place], [place] | | | | | | [address] | | | | | | [phone] | | | +--------+ + + + [...] | 2020 | Visit | | MD [address] | | | | | | [facility] [place] | | | | | | [address] | | | | | | [phone] | | | | | | | [...] Note | + + | Service Account, RadiAdjug Res In Interface - 10/10/2016 5:54 PM [...]
--- OUTSIDE RECORDS SUMMARY | ~2019-10-25 | XMS | Encounter Summary ---
Demographics + + + | Address | [address] | | | [place] [address] | + + + | Home Phone [...] [place] | | | | | [address] | | + + + + + | Scott Nicole | ECON | Unknown | + | + + + + + Care Team Providers + +------+ + | Care Drafting Layout Worker Name | Role | Phone | [...] Tracy | | | | | | [place], [place] | | | | | | [address] | | | | | | [phone] | | | | | | | | +--------+---------+ + + + documented as of this encounter Visit Diagnoses Not on filedocumented in this encounter"
--- OUTSIDE RECORDS SUMMARY | ~2019-10-25 | XMS | Encounter Summary ---
Demographics + + + | Address | [address] | | | [place] [address] | + + + | Home Phone [...] [place] | | | | | [address] | | + + + + + | Scott Mcgarry ECON | Unknown | | + + + + + Care Team Providers + +------+ + | Care Vending Machine Servicer Name | Role | Phone | + [...] OCCIPITAL | | 2016 | | [facility] | [address] | [address] | | | | Rd [facility] | [place], [place] | SHUNT PLACEMENT | | | | Hospital Admitting | [address] | WITH STEALTH | | | | Desk Located on the | [phone] | | | | | 9th floor | | | | | | [place], [place] | | | | | | [address] | | | +--------+---------+ + + + [...] Nathaniel Ybarra MD PCP: REENA Gusman Service: [facility] Neurosurgery Diagnoses Principal Final Diagnosis: Hydrocephalus. Additional [...] family on 11/09/2015, and the patient and/or [facility] briana members agree with this course of [...] Discharge Good Follow Up Follow up at [facility] Neurosurgery Clinic, [facility] for [facility]aling, 8th Floor, [address] [place] [address]; . You will be contacted to make [...] 9:59 AM Discharging Attending: Nathaniel Ybarra MD [facility] [address]K [address] [place] [address] documented in t his encounter Medications at [...] ml Net 1415 ml Labs CULTURE, URINE [facility] Status: Final result Visible to patient: Not Released Next appt: None Normal Culture Mixed Patrica, Likely Contamination Multiple Organisms are present indicating probable contamination or colonization not relate d to infection. Further work-up of these organisms may result in misleading information due to low numbers and/or mixture of organisms present. Recollection is suggested if clinically indicated. Resulting Agency: [facility] CORE LAB Specimen Collected: 11/07/15 8:07 AM [...] 2 weeks post op. Kristen Chang PA-C [facility] [address] [address]/[place] [address] Pg [id number] Associated attestation - Nathaniel Ybarra MD - 11/09/2015 1:02 PM PDTI have personally perfor med a face to face diagnostic evaluation on this patient. I have reviewed and agree with the care plan. History and Exam by me shows: 45 yo F POD 1 s/p NURSE ORTHOPEDIC shunt. Pt states symptoms are improved. At neuro baseline. Imaging appropriate. D/C home today. Nathaniel Ybarra MD [facility] [address] [address] [address] Jason Pappas MD - 11/08/2015 1:07 PM [...] in bed Jason Pappas MD Neurosurgery PGY2 [id number] Jason Gonsales MD - 11/07/2015 8:08 PM [...] to be com pleted. Jeannine Pelayo PA-C [place] [address] [address] [facility] [address] documented in th is encounter Plan of Treatment +--------+---------+ + + + | Date | Type | Specialty | Care Team | Description | +--------+---------+ + + + | 11/24/ | Office | Neurological Surgery | Nolvia Delgado, | | | 2019 | Visit | | [address] | | | | | | [place], [place] | | | | | | [address] | | | | | | [phone] | | | | | | | [...] Attending | | Surgeon: Nathaniel Ybarra MD Eap Consultant(s): Ronald Alarcon MD, PhD | | Preoperative [...] head was placed in a Kang horseshoe heading and priming tool setter. Her | | cranial incision was planned 3 fingerbreadths above the inion and 3 fingerbreadths over | | to the right of midline. The cranial incision was semilunar in shape. Her abdominal | | incision was prepared 3 fingerbreadths below the rib cage. These incisions were shaved. | | [employer] navigation was used for stereotaxy. Her cranium was registered with the | | [employer] system. The operative area was then prepped [...] 11/08/2015 11:49:29DT: 11/08/2015 | | 12:57:35Job #: [id number]: Nolvia Delgado MD | + + PROCEDURE [...] Placement | | | of R occipital NURSE ORTHOPEDIC shunt 2. Programming of strata valve to [...] [facility] | [address] | [place] [address] | | | SERVICES, CORE | PARK [...] | + + + + + | [facility] | [address] | [place] [address] | | | SERVICES, CORE | [address]AY[address]E [...] + + + + + | [facility] | [address] | [place] [address] | | | SERVICES, CORE | HAYDEE [...] | | | LABORATORY | | | [place] | | | SERVICES, | | | [...] | + + + + + | [facility] | [address] | [place] [address] | | | SERVICES, CORE | HAYDEE [...] | | + +---------+ + + | [facility] DEPARTMENT OF | | | | | [...] + + + + + | [facility] | [address] | [place] [address] | | | RYNE ARIAS | HAYDEE [...] | + + + + + | [facility] | [address] | [place] [address] | | | SERVICES, CORE | HAYDEE [...] + + + + + | [facility] | [address] [facility] | [place] [address] | | | SERVICES, CORE | PARK [...] [facility] | [address] | [place] [address] | | | SERVICES, CORE | PARK [...] | + + + + + | [facility] | [address] | [place] [address] | | | SERVICES, | [address] [...] [facility] | [address] | [place] [address] | | | SERVICES, | [address] [...] | + + + + + | [facility] | [address] | [place] [address] | | | SERVICES, | [address] [...] | + + + + + | [facility] | [address] | [place] [address] | | | SERVICES, CORE | PARK [...] [facility] | [address] | [place] [address] | | | SERVICES, CORE | PARK [...] | | | LABORATORY | | | [place] | | | SERVICES, | | | [...] | + + + + + | [facility] | [address] | [place] [address] | | | [address] | [address] | | | + + + + + documented in this encounter Visit Diagnoses + + | Diagnosis | + + | Obstructive hydrocephalus (HCC) Obstructive hydrocephalus | + + documented in this encounter
--- OUTSIDE RECORDS SUMMARY | ~2019-10-25 | XMS | Encounter Summary ---
Demographics + + + | Address | [address] | | | [place] [address] | + + + | Home Phone [...] [place] | | | | | [address] | | + + + + + | Scott Mcgarry ECON | Unknown | | + + + + + Care Team Providers + +------+ + | Care Assistant Professor Of Forestry Name | Role | Phone | + +------+ + | Patricia Stevens | PCP | | + +------+ + Reason for Visit + + + | Reason | Comments | + + + | Possible Shunt | | | Malfunction | | + + + Encounter Details +--------+ + + + + | Date | Type | Department | Care Team | Description | +--------+ + + + + | 01/16/ | Telephone | Neurosurgery at | Nathaniel Ybarra MD | Possible Shunt | | 2016 | | [facility] | [address] | [place] | | | | and Healing [address] | [place], [place] | | | | | [facility] | [address] | | | | | Health and Healing, | [phone] | | | | | [place] [address] [facility] | | | | | | Floor [place], [place] | | | | | | [address] | | | | | | [phone] | | | +--------+ + + + [...] [address] | | | | | | [place], [place] | | | | | | [address] | | | | | | [phone] | | | | | | | | +--------+---------+ + + + documented as of this encounter Visit Diagnoses Not on filedocumented in this encounter"
--- OUTSIDE RECORDS SUMMARY | ~2019-10-25 | XMS | Encounter Summary ---
Demographics + + + | Address | [address] | | | [place] [address] | + + + | Home Phone [...] [place] | | | | | [address] | | + + + + + | Scott Mcgarry ECON | Unknown | | + + + + + Care Team Providers + +------+ + | Care Truck Shop Mechanic Name | Role | Phone | + [...] Closed | | Neurological | Diagnoses | Jacobs, | Raslan, | | | | Surgery | Cerebral | Xenia J, | Nolvia Liang MD | | | | | ventriculome | [address] | [address] | | | | | beth | [address] | Ave | | | | | Procedures | [address] | [place], [place] | | | | | REQUEST TO | [place], [place] | [address] | | | | | SURGERY | [address] | Phone: | | | | | INJECTION MOLDING SUPERVISOR | | [phone] | | | | | [place] | | Fax: | | | | | VENTRICULO-C | | [phone] | | | | | ISTERNOSTOMY | [...] Description | +--------+---------+ + + + | 03/04/ | Office | Neurosurgery [address] | Nolvia Delgado, | Cerebral | | 2011 | Visit | [address] | MD [address] | ventriculomegaly | | | | Physician's | [place], [place] | (Primary Dx) | | | | [place], 2nd floor | [address] | | | | | [facility] [place] | [phone] | | | | | [address] | | | | | | [phone] | | | +--------+---------+ + + + [...] Temperature | 36.9 C (98.4 F) | 03/04/2012 7:54 AM | | | | | PST [...] Weight | 95.3 kg (210 lb) | 03/04/2012 7:54 AM | | | | | PST | | + + + + + | Height | - | - | | + + + + + | Body Mass Index | 36.05 | 02/03/2012 7:00 AM | | | | | PST | | + + + + + documented in this encounter Progress Notes Nolvia Delgado MD - 03/04/2012 11:08 AM CHANDUI personally interviewed the patient, performe d the pertinent parts of the physical examination and personally formulated the plan with th e resident. I agree with the residents documentation and have documented any additions or e xceptions. Xenia Mejias MD - 03/04/2012 9:12 AM CHANDURin Casas is a 41 yo F here for f/u after initial visit about 2 mon ths ago. 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 She presented 2 months ago for 2 yrs of p rogressive weakness, decreased sensation, and spasticity on the right. Parents and pt repor t that since last visit she s had worsening of her RUE weakness and numbness from elbow do wn and worsening of her RLE rigidity. She is having difficulty doing tasks like combing maría elena r, brushing teeth, and eating hamburgers. They also describe some tremor of the L hand. Vi watson is stable (at baseline she can read large print and watch TV). Exam: Neurological exam: Alert, oriented X 3, fluent [...] UE Pt in wheelchair, gait not tested MRI brain shows profound ventriculomegaly with basilar artery near the floor of the 3rd itz tricle but with small margin. Plan: We discussed our recommendation that we attempt ETV, with the chances that she may no t get better and/or may need future shunt. We also discussed risks of SDH and cortical mant le collapse. Pt and her mother are concerned about her worsening of symptoms, as we are. T zacharyy would like to proceed with surgery. Will enter pre-op orders and consult to [place]. Seen with Dr Delgado who agrees with above.Electronically signed by Xenia Jacobs MD at 11:09 AM PSTdocumented in this encounter Plan of Treatment +--------+---------+ + + + | Date | Type | Specialty | Care Team | Description | +--------+---------+ + + + | 11/24/ | Office | Neurological Surgery | Nolvia Delgado, | | | 2019 | Visit | | [address] | | | | | | [place], [place] | | | | | | [address] | | | | | | [phone] | | | | | | | | +--------+---------+ + + + documented as of this encounter Visit Diagnoses + + | Diagnosis | + + | Cerebral ventriculomegaly - Primary Other conditions of brain | + + documented in this encounter"
--- OUTSIDE RECORDS SUMMARY | ~2019-10-25 | XMS | Encounter Summary ---
Demographics + + + | Address | [address] | | | [place] [address] | + + + | Home Phone [...] [place] | | | | | [address] | | + + + + + | Scott Nicole | ECON | Unknown | + | + + + + + Care Team Providers + +------+ + | Care Rooming House Keeper Name | Role | Phone | + [...] Tracy | | | | | | [place], [place] | | | | | | [address] | | | | | | [phone] | | | | | | | | +--------+---------+ + + + documented as of this encounter Visit Diagnoses Not on filedocumented in this encounter"
--- OUTSIDE RECORDS SUMMARY | ~2019-10-25 | XMS | Encounter Summary ---
Demographics + + + | Address | [address] | | | [place] [address] | + + + | Home Phone | | + + + | Preferred Language | Unknown | + + + | Marital Status | Single | + + + | Jew Affiliation | NRP | + + + [...] [place] | | | | | [address] | | + + + + + | Scott Nicole | ECON | Unknown | | + + + + + Care Team Providers + +------+ + | Care Fiberglasser Name | Role | Phone | + [...] | Radiology | Diagnoses | [place], | [place] | | | | | Shunt | [place], | Health & | | | | | malfunction, | [place] [address] | [facility] | | | | | subsequent | [facility] | [address] [facility] | | | | | encounter | [address] | [place] | | | | | Hydrocephalu | [place], [place] | ROAD | | | | | s, | [address] | [place], [place] | | | | | unspecified | Phone: | [address] | | | | | type (HCC) | [phone] | Phone: | | | | | Procedures | Fax: | [phone] | | | | | CT HEAD WO | [phone] | | | | | | CONTRAST [...] | Radiology | Diagnoses | [place], | [place] | | | | | Shunt | [place], | Health & | | | | | malfunction, | REENA [address] | [employer] | | | | | subsequent | [address] [place] | [address] [facility] | | | | | encounter | [address] | [place] | | | | | Hydrocephalu | [place], [place] | ROAD | | | | | s, | [address] | [place], [place] | | | | | unspecified | Phone: | [address] | | | | | type (HCC) | [phone] | Phone: | | | | | Procedures | Fax: | [phone] | | | | | CT HEAD WO | [phone] | | | | | | CONTRAST [...] | | | | Park [facility] for | [address] | | | | | Health and Healing, | [place], [place] | | | | | Building 1, [facility] | [address] | | | | | Floor [place], [place] | [phone] | | | | | [address] | | | | | | [phone] | | | +--------+ + + + [...] Tracy | | | | | | [place], [place] | | | | | | [address] | | | | | | [phone] | | | | | | | [...] of | | | right parieto-occipital approach OPERATING ROOM SURGICAL TECHNOLOGIST shunt, unchanged in position. | | | [...] | WITHOUT CONTRAST HISTORY: concern for shunt [id number] female with past medical | | history [...] Redemonstration of right | | parieto-occipital approach OPERATING ROOM SURGICAL TECHNOLOGIST shunt, unchanged in position. Redemonstration of isodense [...]
--- OUTSIDE RECORDS SUMMARY | ~2019-10-25 | XMS | Encounter Summary ---
Demographics + + + | Address | [address] | | | [place] [address] | + + + | Home Phone [...] [place] | | | | | [address] | | + + + + + | Scott Nicole | ECON | Unknown | + | + + + + + Care Team Providers + +------+ + | Care Association Executive Name | Role | Phone | + [...] Tracy | | | | | | [place], [place] | | | | | | [address] | | | | | | [phone] | | | | | | | | +--------+---------+ + + + documented as of this encounter Visit Diagnoses Not on filedocumented in this encounter"
--- OUTSIDE RECORDS SUMMARY | ~2019-10-25 | XMS | Encounter Summary ---
Demographics + + + | Address | [address] | | | [place] [address] | + + + | Home Phone [...] [place] | | | | | [address] | | + + + + + | Scott Mcgarry ECON | Unknown | | + + + + + Care Team Providers + +------+ + | Care Rolling Mill Plugger Name | Role | Phone | + +------+ + | Patricia Stevens | PCP | | + +------+ + Reason for Referral Diagnostic Testing (Urgent) +--------+--------+ + + + [...] | | | | Procedures | [facility] | | | | | | CT HEAD WO | Rd | | | | | | CONTRAST | [place], [place] | | | | | | | [address] | | +--------+--------+ + + + + Reason for Visit Diagnostic Testing (Urgent) +--------+--------+ + + + [...] | | | | | CONTRAST | [place], [place] | | | | | | | [address] | | +--------+--------+ + + + + Encounter Details +--------+ + + + + | Date | Type | Department | Care Team | Description | +--------+ + + + + | 11/29/ | Hospital | Radiology/Imaging | | | | 2015 | Encounter | Lab at [facility] | | | | | | [facility] | | | | | | [facility], | | | | | | [address] | | | | | | [place], [place] | | | | | | [address] | | | | | | [phone] | | | +--------+ + + + [...] Tracy | | | | | | [place], [place] | | | | | | [address] | | | | | | [phone] | | | | | | | | +--------+---------+ + + + documented as of this encounter Procedures + +--------+ + + + | Procedure Name | Priori | Date/Time | Associated Diagnosis | Comments | | | ty | | | | + +--------+ + + + | CT HEAD WO CONTRAST | Routin | 11/30/2015 | Hydrocephalus | Results for this | | | e | 4:18 PM | | procedure are in the [...]
--- OUTSIDE RECORDS SUMMARY | ~2019-10-25 | XMS | Encounter Summary ---
Demographics + + + | Address | [address] [place] [address] | | | [place] [address] | + + + | Home Phone | | + + + | Preferred Language | Unknown | + + + | Marital Status | Single | + + + | Confucianism Affiliation | Unknown | + + + | Race | Unknown | + + + | Ethnic Group | Unknown | + + + Author + + + | Author | [facility] | | | and Arturoana | + + + | Organization | [facility] | | | and Arturoana [...] Team Providers + +------+ + | Care Securities Adviser Name | Role | Phone | + +------+ + PCP | Unavailable | + +------+ + Encounter Details +--------+ + + + + | Date | Type | Department | Care Team | Description | +--------+ + + + + | 08/20/ | Hospital | [facility] | Hugh Samuel, | | | 2011 | Encounter | [facility] | [address] | | | | | [address] | [address], | | | | | [place], [place] | [place] [address] | | | | | [address] | [phone] | | | | | [phone] | | | +--------+ + + + [...] on file | | + + + documented as of this encounter H&P Hugh Arguelles - 08/21/2011 7:04 AM PDTDATE: PREOPERATIVE HISTORY AND PHYSICAL DATE OF PROCEDURE: 08/21/2011 CHIEF COMPLAINT: VNS battery replacement. HISTORY OF PRESENT ILLNESS: Rin is a 41-year-old lady with a seizure disorder. She has be en success fully treated with a vagal nerve stimulator placed in [place] on 08/05/2003. Th e battery is running out and she needs a replacement. She has been sent over by Dr. Steven wood or this purpose. PAST HISTORY/REVIEW OF SYSTEMS: Seizure disorder, cerebral palsy. ALLERGIES: NO ALLERGIES TO MEDICATIONS. CURRENT MEDICATIONS 1. Lamotrigine. 2. Baclofen. PAST SURGICAL HISTORY: VNA implant, vagal nerve stimulator 2003, ankle surgery 1982. SOCIAL HISTORY: She uses alcohol. She is single. She lives in [place]. No tobacco. FAMILY HISTORY: Unremarkable. PHYSICAL EXAMINATION VITAL SIGNS: Vitals stable, afebrile. GENERAL: Well-developed, well-nourished female, examined with her mom, Malina, present. HEAD/NECK: The battery implant is over the left lateral pectoralis muscle near the axilla, a well-hea led incision, easily palpable. The head and neck exam is otherwise unremarkable. CHEST: Clear. HEART: Regular rate and rhythm. ABDOMEN: Benign. EXTREMITIES: Benign. NEUROLOGIC: Grossly intact. REVIEW OF RECORDS: I have an office note from Dr. Harris 01/02/2011 and 07/08/2011, which I have revie wed. IMPRESSION: VNS treatment for seizures with need for a battery replacement. RECOMMENDATION: This will be scheduled for outpatient surgery [facility] 08/20. She is agreeable and we will schedule. DICTATED BY: Hugh Samuel MD Otolaryngology JOB #: [id number] EXT JOB #:[id number] EDITED: 09/06/2011 08:10 cc: MD Patricia Coffey PA-C <Electronically Signed by Hugh Samuel MD> 09/09/11 1116 documented in this encounter Miscellaneous Notes Op Note - Hugh Samuel - 08/21/2011 7:04 AM PDTDATE: 08/21/2011 DATE OF SURGERY: 08/21/2011 PREOPERATIVE DIAGNOSIS: Intractable epilepsy with vagus nerve stimulator (VNS) generator failure. POSTOPERATIVE DIAGNOSIS: INTRACTABLE EPILEPSY WITH VAGUS NERVE STIMULATOR (VNS) GENERATOR FAILURE. PROCEDURE: Replacement of VNS generator. SURGEON: Hugh Samuel DO. ANESTHESIA: General orotracheal, Dr. Carlos Owens. PREOPERATIVE HISTORY: Rin is a 41-year-old lady with intractable epilepsy treated with a VNS syste m. This was placed 8 years ago. The battery has failed. She is [facility] ating room for [facility] ent. OPERATIVE PROCEDURE AND FINDINGS: After informed consent, the patient was taken to the oper ating room , placed in supine position where general orotracheal anesthesia was induced. Th e patient and procedu re were verified. Carlos of Retre[employer] was present as was the replaceme nt generator. Attempt at interro gation of the indwelling generator was unsuccessful. There was no response at all. The anterior left chest was sterilely prepped and draped. The generator was identified deep to the sk in. The incision was fairly lateral in the axilla. The new incision was slightly more medial encompas sing the medial aspect of the earlier. The incision was marked with a marking pen, and the incision w as injected with 1% lidocaine with epinephrine. An incisio n was made through skin and subcutaneous ti ssue down to the fibrous capsule of the generat or. A transverse incision was made in the fibrous caps ule and the generator was removed. I t was disconnected from the leads and passed off the table to Félix wood, the Retre[employer] technic terrell. He attempted to re-interrogate it, which completely failed. The wound w as copiously l avaged with saline. Hemostasis was verified and controlled with needlepoint cautery. Th e n ew generator was attached to the leads. Interrogation outside the patient was performed and was oleary ccessful. The new settings were programmed into the generator and the generator was then placed in th e existing fibrous pocket. The fibrous tissue was reapproximated with 4-0 interrupted Vicryl, subcu w ith 4-0 interrupted Vicryl, and the skin with rowena. Re-inte rrogation externally was successful. Al l systems were working properly. The wound was rins ed, washed. Neosporin ointment was applied and a d ressing. The patient was then awakened, extubated, transported to the recovery room in good condition . COMPLICATIONS: None. DRAINS: None. BLOOD LOSS: Minimal. SPECIMEN: The old generator was given to Felix Retrevo set up mold technician. DICTATED BY: Hugh Samuel MD Otolaryngology JOB #: [id number] EXT JOB #:[id number] <Electronicall y Signed by Hugh Samuel MD> 08/28/11 1312 documented in this encounter Plan of Treatment Not on filedocumented as of this encounter Visit Diagnoses Not on filedocumented in this encounter"
--- OUTSIDE RECORDS SUMMARY | ~2019-10-25 | XMS | Encounter Summary ---
Demographics + + + | Address | [address] | | | [place] [address] | + + + | Home Phone [...] [place] | | | | | [address] | | + + + + + | Scott Mcgarry ECON | Unknown | | + + + + + Care Team Providers + +------+ + | Care Food And Beverage Service Manager Name | Role | Phone | [...] | | | | | subdural | [place], [place] | Hospital, | | | | | hematoma | [address] | 10th Floor | | | | | (HCC) | Phone: | [place], [place] | | | | | Procedures | [phone] | [address] | | | | | CT HEAD WO | Fax: | Phone: | | | | | CONTRAST | [phone] | [phone] | | | | | | | Fax: | | | | | | | [phone] | +--------+--------+ + + + + Encounter Details +--------+ + + + + | Date | Type | Department | Care Team | Description | +--------+ + + + + | 10/11/ | [employer] | Neurosurgery at | Bernardo, | Acute on chronic | | 2017 | | [facility] [address] | [address] | intracranial | | | | [facility] for | [address] | subdural hematoma | | | | Health and Healing, | [place], [place] | ([facility]) (Primary Dx) | | | | Building | [address] | | | | | floor [place], [place] | [phone] | | | | | [address] | | | | | | [phone] | | | +--------+ + + + [...] | | 2019 | Visit | | [address] | | | | | | [place], [place] | | | | | | [address] | | | | | | [phone] | | | | | | | [...]
--- OUTSIDE RECORDS SUMMARY | ~2019-10-25 | XMS | Encounter Summary ---
Demographics + + + | Address | [address] | | | [place] [address] | + + + | Home Phone [...] [place] | | | | | [address] | | + + + + + | Scott Mcgarry ECON | Unknown | | + + + + + Care Team Providers + +------+ + | Care Actuarial Analyst Name | Role | Phone | [...] | | | | | Acquired | [place], [place] | | | | | | equinovarus | [address] | | | | | | deformity of | Phone: | | | | | | right foot | [phone] | | | | | | Procedures | Fax: | | | | | | PHYSICAL | [phone] | | | | | | THERAPY [...] | (Primary Dx); | | | | [facility] for | Ave [place], [place] | Acquired equinovarus | | | | Health and Healing, | [address] | deformity of right | | | | Building 1, 8th | [phone] | foot | | | | floor [facility] [place] | | | | | | [address] | | | | | | [phone] | | | +--------+---------+ + + + [...] as needed LIZBETH ALARCON PA-C NEUROSURGERY AT [facility] [address] Mailcode: [place] [address] documented in this e ncounter Plan of Treatment +--------+---------+ + + + | Date | Type | Specialty | Care Team | Description | +--------+---------+ + + + | 11/24/ | Office | Neurological Surgery | Danny Nolvia Liang, | | | 2019 | Visit | | [address] | | | | | | [place], [place] | | | | | | [address] | | | | | | [phone] | | | | | | | | +--------+---------+ + + + documented as of this encounter Visit Diagnoses + + | Diagnosis | + + | Hydrocephalus (HCC) - Primary Obstructive hydrocephalus | + + | Acquired equinovarus deformity of right foot | + + documented in this encounter"
--- OUTSIDE RECORDS SUMMARY | ~2019-10-25 | XMS | Encounter Summary ---
Demographics + + + | Address | [address] | | | [place] [address] | + + + | Home Phone [...] [place] | | | | | [address] | | + + + + + | Scott Mcgarry ECON | Unknown | | + + + + + Care Team Providers + +------+ + | Care Cosmetics And Toiletries Salesperson Name | Role | Phone | + +------+ + | Patricia Stevens | PCP | | + +------+ + Reason for Visit + + + | Reason | Comments | + + + | Return Patient | Pt states no concerns | + + + | Follow-up visit | | + + + | Ct Scan Result | | + + + Encounter Details +--------+---------+ + + + | Date | Type | Department | Care Team | Description | +--------+---------+ + + + | 12/26/ | Office | Neurosurgery at | Raslan, Nolvia M, | Hydrocephalus | | 2017 | Visit | [facility] [address] | MD [address] | (Primary Dx) | | | | Ave [facility] for | [place], [place] | | | | | Health and Healing, | [address] | | | | | [facility] | [phone] | | | | | floor [place], [place] | | | | | | [address] | | | | | | [phone] | | | +--------+---------+ + + + [...] Pressure | 127/86 | 12/26/2016 3:50 PM | | | | | PDT | | + + + + + | Pulse | 74 | 12/26/2016 3:50 PM | | | | | PDT | | + + + + + | Temperature | 36.3 C (97.4 F) | 12/26/2016 3:50 PM | | | | | PDT [...] kg (212 lb) | 12/26/2016 3:50 PM | | | | | PDT | | + + + + + | Height | - | - | | + + + + + | Body Mass Index | 33.2 | 09/20/2016 2:44 PM | | | | | PDT | | + + + + + documented in this encounter Progress Notes Nolvia Delgado MD - 12/26/2016 3:30 PM PDTFormatting of this note might be different fro m the original. Rin returns today for follow up, she had a CT, she continues to exhibit spasticity, but s he denies headache. Filed Vitals 10/10/2016 2:17 PM 10/31/2016 2:19 PM 12/26/2016 3:55 PM Weight: 95.3 kg (210 lb) 90.7 kg (200 lb) 96.2 kg (212 lb) BP: 105/68 118/80 127/86 Pulse: 71 65 74 Temp: 36.5 C (97.7 F) 36.1 C (97 F) 36.3 C (97.4 F) TempSrc: Forehead Forehead Forehead PainSc: 0 - Zero 0 - Zero 0 - Zero BMI: 33.2 kg/(m^2) No exam change since last visit. CT: Almost complete resolution of the subdural hematoma. AP: A 46 years old female with acqueductal stenosis, s/p ETV x 3, BUSINESS LIAISON OFFICER shunt, subdural hematoma d rainage due to overshunting. Will bring her back in 3 months , if CT is clean, will dial stu nt down to 2.0. docuisrael jorgensen in this encounter Plan of Treatment +--------+---------+ + + + | Date | Type | Specialty | Care Team | Description | +--------+---------+ + + + | 11/24/ | Office | Neurological Surgery | Nolvia Delgado, | | | 2019 | Visit | | [address] | | | | | | [place], [place] | | | | | | [address] | | | | | | [phone] | | | | | | | | +--------+---------+ + + + documented as of this encounter Visit Diagnoses + + | Diagnosis | + + | Hydrocephalus (HCC) - Primary Obstructive hydrocephalus | + + documented in this encounter"
--- OUTSIDE RECORDS SUMMARY | ~2019-10-25 | XMS | Encounter Summary ---
Demographics + + + | Address | [address] | | | [place] [address] | + + + | Home Phone [...] Author + + + | Author | [facility] | + + + | Organization | [facility] | + + + | Address | Unknown | + + + | Phone | Unavailable | + + + Support + + + + + | Name | Relationship | Address | Phone | + + + + + | Malina Nicole | ECON | [address] | | | | | [place] | | | | | [address] | | + + + + + | Scott Mcgarry ECON | Unknown | | + + + + + Care Team Providers + +------+ + | Care Game Engineer Name | Role | Phone | [...] | | | | | s ([facility]) | [facility] | [place], [place] | | | | | Procedures | Rd | [address] | | | | | CONSULT TO | [place], [place] | Phone: | | | | | NEUROSURGERY | [address] | [phone] | | | | | [place] NEW | Phone: | Fax: | | | | | PATIENT | [phone] | [phone] | | | | | LEVEL [place] | Fax: | | | | | | EST PATIENT | [phone] | | | | | | LEVEL [...] | | | | | | | [place], [place] | | | | | | | [address] | | | | | | | Phone: | | | | | | | [phone] | | | | | | | Fax: | | | | | | | [phone] | + +--------+ + + + + Encounter Details +--------+---------+ + + + | Date | Type | Department | Care Team | Description | +--------+---------+ + + + | 05/04/ | Office | Spine Center at | Nathaniel Ybarra MD | Obstructive | | 2017 | Visit | [facility] [address] | [address] | hydrocephalus | | | | Mailcode: Center | [facility] [place] | (Primary Dx) | | | | for Health and | [address] | | | | | Healing, Building [address] | [phone] | | | | | [place], [place] | | | | | | [address] | | | | | | [phone] | | | +--------+---------+ + + + [...] 07/18/2016 3:44 PM PDT46 yo F s/p NATURAL RESOURCE MANAGER shunt ambreen cement. Came to ER a [...] basis. Nathaniel Ybarra MD [facility] AT [address] [address] documented in this encounter Plan of Treatment +--------+---------+ + + + | Date | Type | Specialty | Care Team | Description | +--------+---------+ + + + | 11/24/ | Office | Neurological Surgery | Nolvia Delgado, | | | 2019 | Visit | | [address] | | | | | | [place], [place] | | | | | | [address] | | | | | | [phone] | | | | | | | | +--------+---------+ + + + documented as of this encounter Visit Diagnoses + + | Diagnosis | + + | Obstructive hydrocephalus (HCC) - Primary Obstructive hydrocephalus | + + documented in this encounter"
--- OUTSIDE RECORDS SUMMARY | ~2019-10-25 | XMS | Encounter Summary ---
Demographics + + + | Address | [address] | | | [place] [address] | + + + | Home Phone [...] [place] | | | | | [address] | | + + + + + | Scott Nicole | ECON | Unknown | | + + + + + Care Team Providers + +------+ + | Care Hydraulic Dredge Operator Name | Role | Phone | [...] | | | | | hydrocephalu | [facility] [place] | | | | | | s ([facility]) | [address] | | | | | | Procedures | Phone: | | | | | | CT HEAD WO | [phone] | | | | | | CONTRAST | Fax: | | | | | | | [phone] | | +--------+--------+ + + + + [...] | | | | | hydrocephalu | [place], [place] | | | | | | s ([facility]) | [address] | | | | | | Procedures | Phone: | | | | | | CT HEAD WO | [phone] | | | | | | CONTRAST | Fax: | | | | | | | [phone] | | +--------+--------+ + + + + [...] | | [facility] | [place], [place] | | | | | Health and Healing, | [address] | | | | | [address] | [phone] | | | | | Floor [place], [place] | | | | | | [address] | | | | | | [phone] | | | +--------+ + + + [...] | | 2019 | Visit | | [address] | | | | | | [place], [place] | | | | | | [address] | | | | | | [phone] | | | | | | | [...] RADIOLOGY VOICE | | aqueductal stenosis with DIRECTOR PROCESS IMPROVEMENT shunt, interval evaluation of SDH in | [...] | toxoplasmosis, complicated by aqueductal stenosis with DIRECTOR PROCESS IMPROVEMENT shunt, interval evaluation of | | SDH [...] lesions. Mastoids and middle ears are unremarkable. [place] holes in | | bilateral superior parietal [...]
--- OUTSIDE RECORDS SUMMARY | ~2019-10-25 | XMS | Encounter Summary ---
Demographics + + + | Address | [address] | | | [place] [address] | + + + | Home Phone [...] Author + + + | Author | [facility] | + + + | Organization | [facility] | + + + | Address | Unknown | + + + | Phone | Unavailable | + + + Support + + + + + | Name | Relationship | Address | Phone | + + + + + | Malina Nicole | ECON | [address] | | | | | [place] | | | | | [address] | | + + + + + | Scott Nicole | ECON | Unknown | | + + + + + Care Team Providers + +------+ + | Care Eyelet Maker Name | Role | Phone | + [...] | | unspecified | [address] | [place], [place] | | | | | Procedures | [place] | [address] | | | | | REQUEST TO | [address] | Phone: | | | | | SURGERY | Phone: | [phone] | | | | | BALLISTICS TEACHER | [phone] | Fax: | | | | | [place] | Fax: | [phone] | | | | | REPLACEMENT/ | [phone] | | | | | | REVISION,CSF | | | | | | | [place] | | | | | | | REPLACE/IRRI | | | | | | | [facility] | | | | | | | CATH [place] | | | | | | | [...] | | | | | hydrocephalu | [facility] | Ave | | | | | s ([facility]) | [facility] | [place], [place] | | | | | Procedures | Rd | [address] | | | | | [place] EST | [place], [place] | Phone: | | | | | PATIENT | [address] | [phone] | | | | | LEVEL [place] | Phone: | Fax: | | | | | REPROGRAMMIN | [phone] | [phone] | | | | | G,PROGRAMMAB | Fax: | | | | | | LE CSF SHUNT | [phone] | | +--------+--------+ + + + + [...] | | | Ave [facility] for | [place], [place] | ([facility]) (Primary Dx) | | | | Health and Healing, | [address] | | | | | [facility] | [phone] | | | | | [place], [place] | | | | | | [address] | | | | | | [phone] | | | +--------+---------+ + + + [...] touch IMAGIN08/27/18 CT ASSESSMENT AND PLAN: Rin Casas is a 48yo lady with history of [...] care. MD Nolvia Sanz MD NEUROSURGERY AT [facility] [address] Mailcode: [place] [address] documented in this encounter Plan of Treatment +--------+---------+ + + + | Date | Type | Specialty | Care Team | Description | +--------+---------+ + + + | 11/24/ | Office | Neurological Surgery | Nolvia Delgado, | | | 2019 | Visit | | [address] | | | | | | [place], [place] | | | | | | [address] | | | | | | [phone] | | | | | | | | +--------+---------+ + + + documented as of this encounter Visit Diagnoses + + | Diagnosis | + + | Hydrocephalus, unspecified type (HCC) - Primary | + + documented in this encounter
--- OUTSIDE RECORDS SUMMARY | ~2019-10-25 | XMS | Encounter Summary ---
Demographics + + + | Address | [address] | | | [place] [address] | + + + | Home Phone [...] [place] | | | | | [address] | | + + + + + | Scott Mcgarry ECON | Unknown | | + + + + + Care Team Providers + +------+ + | Care Hydrology Technician Name | Role | Phone | + +------+ + | Patricia Stevens | PCP | | + +------+ + Encounter Details +--------+ + + + + | Date | Type | Department | Care Team | Description | +--------+ + + + + | 08/24/ | Emergency Doctor | Neurosurgery at | Chang, | Bethanie | | 2013 | | [facility] [address] | [address] | (Primary Dx); Preop | | | | Ave [facility] for | [address] | examination | | | | Health and Healing, | [place], [place] | | | | | Building | [address] | | | | | floor [place], [place] | [phone] | | | | | [address] | | | | | | [phone] | | | +--------+ + + + [...] | | 2019 | Visit | | [address] | | | | | | [place], [place] | | | | | | [address] | | | | | | [phone] | | | | | | | [...]
--- OUTSIDE RECORDS SUMMARY | ~2019-10-25 | XMS | Encounter Summary ---
Demographics + + + | Address | [address] | | | [place] [address] | + + + | Home Phone [...] + + + | Author | [facility] | + + + | Organization | [facility] | + + + | Address | Unknown | + + + | Phone | Unavailable | + + + Support + + + + + | Name | Relationship | Address | Phone | + + + + + | Malina Nicole | ECON | [address] | | | | | [place] | | | | | [address] | | + + + + + | Scott Mcgarry ECON | Unknown | | + + + + + Care Team Providers + +------+ + | Care Technology Methodology Consultant Name | Role | Phone | [...] | | | | s (HCC) | [place], [place] | Research | | | | | Procedures | [address] | Center | | | | | MRI BRAIN WO | Phone: | [place], [place] | | | | | CONTRAST | [phone] | [address] | | | | | | Fax: | Phone: | | | | | | [phone] | [phone] | | | | | | | Fax: | | | | | | | [phone] | +--------+--------+ + + + + Reason [...] | hydrocephalu | [address] | | | | | s (HCC) | [facility] [place] | Research | | | | | Procedures | [address] | Center | | | | | MRI BRAIN WO | Phone: | [place], [place] | | | | | CONTRAST | [phone] | [address] | | | | | | Fax: | Phone: | | | | | | [phone] | [phone] | | | | | | | Fax: | | | | | | | [phone] | +--------+--------+ + + + + Encounter Details +--------+ + + + + | Date | Type | Department | Care Team | Description | +--------+ + + + + | 07/16/ | Hospital | Diagnostic Imaging | | | | 2012 | Encounter | Services at [facility] | | | | | | [address] | | | | | | [address] | | | | | | Research Center | | | | | | [facility] [place] | | | | | | [address] | | | | | | [phone] | | | +--------+ + + + [...] documented as of this encounter Progress Notes Shan, Faculty - 07/27/2012 12:03 PM PDTElectronically signed by Faculty Other at 12:03 PM PDTdocumented in this encounter Plan of Treatment +--------+---------+ + + + | Date | Type | Specialty | Care Team | Description | +--------+---------+ + + + | 11/24/ | Office | Neurological Surgery | Nolvia Delgado, | | | 2020 | Visit | | [address] | | | | | | [place], [place] | | | | | | [address] | | | | | | [phone] | | | | | | | [...] INSTRUCTIONS FOR MRI | | | | 07/16/2012 until | | | | | | 07/16/2012 | + +---------+--------+ + + documented as of this encounter Procedures + +--------+ + + + | Procedure Name | Priori | Date/Time | Associated Diagnosis | Comments | | | ty | | | | + +--------+ + + + | MRI BRAIN WO | Routin | 07/16/2012 | Obstructive | Results for this | | CONTRAST | e | 4:36 PM | hydrocephalus | procedure are in [...] + +---------+ + + | [facility] DEPARTMENT OF | | | | | RADIOLOGY | | | | + +---------+ + + documented in this encounter Visit Diagnoses + + | Diagnosis | + + | Obstructive hydrocephalus (HCC) Obstructive hydrocephalus | + + documented in this encounter"
--- OUTSIDE RECORDS SUMMARY | ~2019-10-25 | XMS | Encounter Summary ---
Demographics + + + | Address | [address] | | | [place] [address] | + + + | Home Phone [...] [place] | | | | | [address] | | + + + + + | Scott Mcgarry ECON | Unknown | | + + + + + Care Team Providers + +------+ + | Care Resistance Brazer Name | Role | Phone | + +------+ + | Patricia Stevens | PCP | | + +------+ + Encounter Details +--------+ + + + + | Date | Type | Department | Care Team | Description | +--------+ + + + + | 07/05/ | Document-Sc | UNKNOWN DEPARTMENT | Unknown . | | | 2016 | anned | [address] [facility] | | | | | | [address] | | | | | | [place], [place] | | | | | | [address] | | | +--------+ + + + [...] | | 2019 | Visit | | [address] | | | | | | [place], [place] | | | | | | [address] | | | | | | [phone] | | | | | | | | +--------+---------+ + + + documented as of this encounter Procedures + +--------+ + + + | Procedure Name | Priori | Date/Time | Associated Diagnosis | Comments | | | ty | | | | + +--------+ + + + | RADIOLOGY | | 07/06/2015 | | Results for this | | | | 12:00 AM | | procedure are in the | | | | PDT | | results section. | + +--------+ + + + documented in this encounter Results RADIOLOGY (07/06/2015 12:00 AM PDT) + + + | Narrative | Performed At | + + + | | | + + + documented in this encounter Visit Diagnoses Not on filedocumented in this encounter"
--- OUTSIDE RECORDS SUMMARY | ~2019-10-25 | XMS | Encounter Summary ---
Demographics + + + | Address | [address] | | | [place] [address] | + + + | Home Phone [...] [place] | | | | | [address] | | + + + + + | Scott Mcgarry ECON | Unknown | | + + + + + Care Team Providers + +------+ + | Care Department Store Door Greeter Name | Role | Phone | + [...] | | | | s (HCC) | [place], [place] | Research | | | | | Procedures | [address] | Center | | | | | MRI BRAIN WO | Phone: | [place], [place] | | | | | CONTRAST | [phone] | [address] | | | | | | Fax: | Phone: | | | | | | [phone] | [phone] | | | | | | | Fax: | | | | | | | [phone] | +--------+--------+ + + + + Reason [...] | | | | s (HCC) | [facility] [place] | Research | | | | | Procedures | [address] | Center | | | | | MRI BRAIN WO | Phone: | [place], [place] | | | | | CONTRAST | [phone] | [address] | | | | | | Fax: | Phone: | | | | | | [phone] | [phone] | | | | | | | Fax: | | | | | | | [phone] | +--------+--------+ + + + + Encounter Details +--------+ + + + + | Date | Type | Department | Care Team | Description | +--------+ + + + + | 07/16/ | Hospital | Diagnostic Imaging | | | | 2012 | Encounter | Services at [facility] | | | | | | [address] | | | | | | [address] | | | | | | Research Center | | | | | | [facility] [place] | | | | | | [address] | | | | | | [phone] | | | +--------+ + + + [...] [address] | | | | | | [place], [place] | | | | | | [address] | | | | | | [phone] | | | | | | | [...] | | + +---------+ + + | [facility] DEPARTMENT OF | | | | | RADIOLOGY | | | | + +---------+ + + documented in this encounter Visit Diagnoses + + | Diagnosis | + + | Obstructive hydrocephalus (HCC) Obstructive hydrocephalus | + + documented in this encounter"
--- OUTSIDE RECORDS SUMMARY | ~2019-10-25 | XMS | Encounter Summary ---
Demographics + + + | Address | [address] | | | [place] [address] | + + + | Home Phone [...] [place] | | | | | [address] | | + + + + + | Scott Nicole | ECON | Unknown | | + + + + + Care Team Providers + +------+ + | Care Casting Machine Set Up Operator Name | Role | Phone | [...] | | | | | hydrocephalu | [place], [place] | | | | | | s ([facility]) | [address] | | | | | | Procedures | Phone: | | | | | | CT HEAD WO | [phone] | | | | | | CONTRAST | Fax: | | | | | | | [phone] | | +--------+--------+ + + + + [...] | | | | | hydrocephalu | [facility] | Ave | | | | | s (HCC) | [facility] | [place], [place] | | | | | Procedures | Rd | [address] | | | | | SC EST | [place], [place] | Phone: | | | | | PATIENT | [address] | [phone] | | | | | LEVEL V SC | Phone: | Fax: | | | | | REPROGRAMMIN | [phone] | [phone] | | | | | G,PROGRAMMAB | Fax: | | | | | | LE CSF SHUNT | [phone] | | +--------+--------+ + + + + [...] | | | Ave Center for | [place], [place] | (Primary Dx) | | | | Health and Healing, | [address] | | | | | Building , | [phone] | | | | | floor [place], [place] | | | | | | [address] | | | | | | [phone] | | | +--------+---------+ + + + [...] James. MD Nolvia Sanz MD NEUROSURGERY AT [facility] [address] Mailcode: [place] [phone] documented in this en counter Plan of Treatment +--------+---------+ + + + | Date | Type | Specialty | Care Team | Description | +--------+---------+ + + + | 11/24/ | Office | Neurological Surgery | Nolvia Delgado, | | | 2019 | Visit | | [address] | | | | | | [place], [place] | | | | | | [address] | | | | | | [phone] | | | | | | | [...] RADIOLOGY VOICE | | aqueductal stenosis with SUPERVISOR SHUTTLE PREPARATION shunt, interval evaluation of SDH in | [...] lesions. Mastoids and middle ears are unremarkable. 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
--- OUTSIDE RECORDS SUMMARY | ~2019-10-25 | XMS | Encounter Summary ---
Demographics + + + | Address | [address] | | | [place] [address] | + + + | Home Phone [...] [place] | | | | | [address] | | + + + + + | Scott Mcgarry ECON | Unknown | | + + + + + Care Team Providers + +------+ + | Care Mat Worker Name | Role | Phone | [...] | | | | | hemorrhage, | [facility] | [place], [place] | | | | | unspecified | Rd | [address] | | | | | Procedures | [place], [place] | Phone: | | | | | REQUEST TO | [address] | [phone] | | | | | SURGERY | Phone: | Fax: | | | | | SAFE EXPERT | [phone] | [phone] | | | | | AR AIME HOLE | Fax: | | | | | | EVAC | [phone] | | | | | | SUBDUR/EXTRA [...] | | | | | subdural | [place], [place] | Health and | | | | | hematoma | [address] | Healing, | | | | | (HCC) | Phone: | Building [address], | | | | | Procedures | [phone] | 3rd Floor | | | | | CT HEAD WO | Fax: | [place], [place] | | | | | CONTRAST [place] | [phone] | [address] | | | | | CT | | Phone: | | | | | SCAN,HEAD/BR | | [phone] | | | | | AIN,W/O | | Fax: | | | | | CONTRAST | | [phone] | | | | | MATL | [...] | | | | | hydrocephalu | [facility] | [address] | | | | | s (HCC) | [facility] | [place], [place] | | | | | Procedures | Rd | [address] | | | | | CONSULT TO | [place], [place] | Phone: | | | | | NEUROSURGERY | [address] | [phone] | | | | | AR NEW | Phone: | Fax: | | | | | PATIENT | [phone] | [phone] | | | | | LEVEL V AR | Fax: | | | | | | EST PATIENT | [phone] | | | | | | LEVEL [...] | | | Ave Center for | [place], [place] | subdural hematoma | | | | Health and Healing, | [address] | ([facility]) (Primary Dx) | | | | Building | [phone] | | | | | floor [place], [place] | | | | | | [address] | | | | | | [phone] | | | +--------+---------+ + + + [...] care. MD Nolvia Sanz MD NEUROSURGERY AT [facility] [address] Mailcode: [place] [phone] Ada Gong MD,P hD - 09/12/2016 1:00 [...] Ave | | | | | | [place], [place] | | | | | | [address] | | | | | | [phone] | | | | | | | [...]
--- OUTSIDE RECORDS SUMMARY | ~2019-10-25 | XMS | Encounter Summary ---
Demographics + + + | Address | [address] | | | [place] [address] | + + + | Home Phone | | + + + | Preferred Language | Unknown | + + + | Marital Status | Single | + + + | Nondenominational Affiliation | NRP | + + + [...] [place] | | | | | [address] | | + + + + + | [place] Nicole | ECON | Unknown | | + + + + + Care Team Providers + +------+ + | Care Vegetable Specker Name | Role | Phone | + +------+ + | Gabe Baird DO | PCP | | + +------+ + Reason for Visit + + + | Reason | Comments | + + + | Postoperative visit | pt has been doing good since surgery. No headaches since | | | procedure | + + + Other (Routine) +--------+--------+ + + + + | [...] | | | | | unspecified | [address] | [place], [place] | | | | | Presence of | [place] | [address] | | | | | | [address] | Phone: | | | | | programmable | Phone: | [phone] | | | | | | [phone] | Fax: | | | | | ventriculope | Fax: | [phone] | | | | | ritoneal | [phone] | | | | | | shunt | | | | | | | Procedures | | | | | | | POSTOP VISIT | | | | | | | RI | | | | | | | REPLACEMENT/ | | | | | | | REVISION,CSF | | | | | | | SHUNT RI | | | | | | | REPLACE/IRRI | | | | | | | GATE VENTRIC | | | | | | | CATH RI | | | | | | | REMOVE & | | | | | | | REPLACE CSF | | | | | | | SHUNT RI | | | | | | | REPROGRAMMIN | | | | | | | G,PROGRAMMAB | | | | | | | LE CSF SHUNT | | | +--------+--------+ + + + + Encounter Details +--------+---------+ + + + | Date | Type | Department | Care Team | Description | +--------+---------+ + + + | 05/06/ | Office | Neurosurgery at | Cornelius Coello PA-C | Hydrocephalus, | | 2020 | Visit | [facility] [address] | [address] | unspecified type | | | | [facility] for | [facility] [address] | ([facility]) (Primary Dx) | | | | Health and Healing, | [place], [place] | | | | | Building | [address] | | | | | floor [place], [place] | [phone] | | | | | [address] | | | | | | [phone] | | | +--------+---------+ + + + [...] Temperature | 36.3 C (97.3 F) | 05/06/2019 9:46 AM | | | [...] documented as of this encounter Progress Notes Cornelius Ceollo PA-C - 05/06/2019 10:00 AM PST POST OP VISIT Subjective: Rin Casas presents to clinic today for a routine post-operative visit af ter undergoing Right Ventriculopertitoneal Shunt Valve Revision, - Right on 04/23/2019 d/t mal functioning VPS valve. Patient presents with parents. The patient reports no pain that is we ll controlled without medication(s). The patient/parents reports patient is doing the best s he has ever done post operatively. The patient/parents are very pleased with the outcome of the surgery. No other reported issues or concerns at this time. Social: Patient lives in [place], [place]. Patient has No occupation listed. Objective: Temp 36.3 C (97.3 F) (Forehead) | Ht 1.702 m (5' 7") | Wt 113.4 kg (250 lb) | BMI 39 .16 kg/m | BSA 2.32 m General: NAD Neuro: A+O x 3. 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 female s/p Right Ventriculopertitoneal Shunt Valve Revision, - Right by Dr. Delgado on 04/23/2019 d/t malfunctioning VPS valve. Patient is doing w ell post-operatively. At neuro baseline. Hardware: right occipital ventriculoperitoneal shunt valve with Certas at 4 (per op note). In clinic, valve located/identified, patient positioned appropriately/safely. Device confir med at setting of 4. Plan: No medications needed given no narcotic/pain med usage post-op. Offered well scan however family declined at this time. Last well scan in 06/2018. No driving while taking pain medications Do not soak incision for one month post-op Follow up with PCP as needed Follow up with Dr. Delgado as needed All patient/family questions were answered and they expressed understanding and agreement w [facility] plan. Cornelius Coello PA-C [facility] [address] [place] [address] [address] [facility] [address] Mailcode: [place] [phone] Pg. [phone] documented in this enc ounter Plan of Treatment +--------+---------+ + + + | Date | Type | Specialty | Care Team | Description | +--------+---------+ + + + | 11/24/ | Office | Neurological Surgery | DannyNolvia, | | | 2019 | Visit | | [address] | | | | | | [place], [place] | | | | | | [address] | | | | | | [phone] | | | | | | | | +--------+---------+ + + + documented as of this encounter Visit Diagnoses + + | Diagnosis | + + | Hydrocephalus, unspecified type (HCC) - Primary | + + documented in this encounter
--- OUTSIDE RECORDS SUMMARY | ~2019-10-25 | XMS | Encounter Summary ---
Demographics + + + | Address | [address] | | | [place] [address] | + + + | Home Phone [...] [place] | | | | | [address] | | + + + + + | Scott Nicole | ECON | Unknown | | + + + + + Care Team Providers + +------+ + | Care Draw Furnace Tender Name | Role | Phone | + +------+ + | Patricia Stevens | PCP | | + +------+ + Reason for Visit + + + | Reason | Comments | + + + | MRI Results | | + + + Encounter Details +--------+ + + + + | Date | Type | Department | Care Team | Description | +--------+ + + + + | 10/07/ | Telephone | Neurosurgery at | Nolvia Delgado, | MRI Results | | 2014 | | [facility] [address] | MD [address] | | | | | Ave Center for | [place], [place] | | | | | Health and [facility], | [address] | | | | | [facility] | [phone] | | | | | floor [place], [place] | | | | | | [address] | | | | | | [phone] | | | +--------+ + + + [...] [address] | | | | | | [place], [place] | | | | | | [address] | | | | | | [phone] | | | | | | | | +--------+---------+ + + + documented as of this encounter Visit Diagnoses Not on filedocumented in this encounter"
--- OUTSIDE RECORDS SUMMARY | ~2019-10-25 | XMS | Encounter Summary ---
Demographics + + + | Address | [address] | | | [place] [address] | + + + | Home Phone [...] [place] | | | | | [address] | | + + + + + | Scott Mcgarry ECON | Unknown | | + + + + + Care Team Providers + +------+ + | Care Press Clippings Cutter And Paster Name | Role | Phone | + [...] | | Hydrocephalu | PA-C [address] | [facility] | | | | | s (HCC) | [facility] | [facility] | | | | | Procedures | [facility] | Hospital, | | | | | CT HEAD WO | Rd | 10th Floor | | | | | CONTRAST [place] | [facility] [place] | [place], [place] | | | | | [place] | [address] | [address] | | | | | SCAN,HEAD/BR | | Phone: | | | | | AIN,W/O | | [phone] | | | | | CONTRAST | | Fax: | | | | | MATL | | [phone] | +--------+--------+ + + + + Reason [...] | Hydrocephalu | [address] | | | | | s (HCC) | [facility] | [address] [facility] | | | | | Procedures | [facility] | Hospital, | | | | | CT HEAD WO | Rd | 10th Floor | | | | | CONTRAST [place] | [place], [place] | [place], [place] | | | | | [place] | [address] | [address] | | | | | SCAN,HEAD/BR | | Phone: | | | | | AIN,W/O | | [phone] | | | | | CONTRAST | | Fax: | | | | | MATL | | [phone] | +--------+--------+ + + + + Encounter Details +--------+ + + + + | Date | Type | Department | Care Team | Description | +--------+ + + + + | 07/18/ | Hospital | Diagnostic Imaging | Jeannine Hebert | | | 2016 | Encounter | Services at [facility] | H, SIM[address]N | | | | | [address] | | | | | | [address] [facility] | | | | | | Hospital, 10th Floor | | | | | | [place], [place] | | | | | | [address] | | | | | | [phone] | | | +--------+ + + + [...] [address] | | | | | | [place], [place] | | | | | | [address] | | | | | | [phone] | | | | | | | [...]
--- OUTSIDE RECORDS SUMMARY | ~2019-10-25 | XMS | Encounter Summary ---
Demographics + + + | Address | [address] | | | [place] [address] | + + + | Home Phone | | + + + | Preferred Language | Unknown | + + + | Marital Status | Single | + + + | Scientologist Affiliation | NRP | + + + [...] [place] | | | | | [address] | | + + + + + | Scott Nicole | ECON | Unknown | | + + + + + Care Team Providers + +------+ + | Care Shipping And Receiving Material Handler Name | Role | Phone | [...] | [address] | [address] [address], | | | | | Mailcode: [address] | [place] [address] | | | | | [place], [place] | | | | | | [address] | | | | | | [phone] | | | +--------+ + + + [...] [address] | | | | | | [place], [place] | | | | | | [address] | | | | | | [phone] | | | | | | | | +--------+---------+ + + + documented as of this encounter Visit Diagnoses Not on filedocumented in this encounter"
--- OUTSIDE RECORDS SUMMARY | ~2019-10-25 | XMS | Encounter Summary ---
Demographics + + + | Address | [address] | | | [place] [address] | + + + | Home Phone [...] [place] | | | | | [address] | | + + + + + | Scott Mcgarry ECON | Unknown | | + + + + + Care Team Providers + +------+ + | Care Prep Person Name | Role | Phone | + [...] 2014 | | [address] Coco Sena | [address] | THIRD | | | | Rd [facility] | [place], [place] | VENTRICULOSTOMY | | | | Hospital Admitting | [address] | | | | | Desk Located on the | [phone] | | | | | 9th floor | | | | | | [place], [place] | | | | | | [address] | | | +--------+---------+ + + + [...] Nolvia Delgado MD PCP: REENA Gusman Service: [facility] Neurosurgery Diagnoses Principal Final Diagnosis: Recurrent hydrocephalus [...] x 2.The patien t was admitted to [facility], electively on 02/07/2015 for a Redo [...] Up Appointments: Follow Up Follow up at [facility] Neurosurgery Clinic, [facility] and [facility], 8th Floor, [address], [place] [address]; with Kristen Chang in 2 weeks for [...] 8:10 AM Discharging Attending: Nolvia Delgado MD [facility] 7C NSI [address] [id number] [address] documented in this en counter Discharge Instructions [...] time is exclusive of procedures. 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 , PhD [facility] DEPARTMENT: [id number] ICU NEURO Place of Service:- Inpatient Date of Service: 02/07 CSN: [id number] Suggested Modifier: Suggested CPT: TO MDS MANAGER RELEVANT DATA: Last Vitals: BP 123/59 | [...] 13.12* HB 15.1 HCT 45.8 PLT 302 [facility], Davina Luna MD - 02/07/2015 2:00 PM [facility] NEUROSURGERY POST OPERATIVE CHECK Author: Davina Gee [...] | | 2019 | Visit | | [address] | | | | | | [place], [place] | | | | | | [address] | | | | | | [phone] | | | | | | | [...] Nolvia Delgado MD - 02/07/2015 10:05 PM [facility] Date of Service: 02/07/2015 | | Attending Surgeon: Nolvia Delgado MD Master Pilot(s): Nata | | Maryann Hinojosa MD Preoperative [...] 02/07/2015 15:56:49DT: 02/07/2015 22:05:28Job #: | | [id number] was present for the critical portions of the procedure as described in | | the note for this encounter.Ricky Sanz MD[facility] 7C [id number] [facility] | | [id number], [place] [phone] | | | | | | | |Nata Hinojosa MD | | | | | |Nolvia Delgado MD | |FAH/MODL | | | | | | /[id number] | | | |I was present for the critical portions of the procedure as described in the note for this encounter. | | | |Nolvia Delgado MD | | | |Nolvia Delgado MD | |[facility] 7C NSI | |[address] | |[id number]/[id number] | |[place] [address] | |[phone] | + + CBC (HEMOGRAM) ONLY (02/08/2015 [...] [facility] | [address] | [place] [address] | | | SERVICES, RYNE | HAYDEE [...] + + + + + | [facility] | [address] | [place] [address] | | | SERVICES, CORE | HAYDEE [...] | | | LABORATORY | | | [address] | | | SERVICES, | | | [...] the MDRD equation recommended by the | [facility] | | National Kidney Disease Education Program. [...] | + + + + + | [facility] | [address] | [place] [address] | | | SERVICES, CORE | PARK [...] + + + + + | [facility] | [address] | [place] [address] | | | SERVICES, CORE | HAYDEE [...] [facility] | [address] | [place] [address] | | | SERVICES, CORE | PARK [...] + + + + + | [facility] | [address] | [place] [address] | | | SERVICES, CORE | HAYDEE [...] [facility] | [address] | [place] [address] | | | SERVICES, CORE | PARK [...] + + + + + | [facility] | [address] | [place] [address] | | | SERVICES, CORE | HAYDEE [...] + + | [facility] | [address] | [place] [address] | | | SERVICES, CORE | PARK [...] [facility] | [address] | [place] [address] | | | SERVICES, | [address] [...] | + + + + + | [facility] | [address] | [place] [address] | | | SERVICES, | [address] [...] valves (2.5 - 3.5) INR APTT | [facility], CORE | | Therapeutic Range: (75 - 120) sec | | | Heparin levels of 0.35 - 0.7 U/mL | | + + + + + + + + | Performing | Address | City/State/Zipcode | Phone Number | | Organization | | | | + + + + + | [facility] | [address] | [place] [address] | | | [facility], [facility] | [address] | | | + [...]
--- OUTSIDE RECORDS SUMMARY | ~2019-10-25 | XMS | Encounter Summary ---
Demographics + + + | Address | [address] | | | [place] [address] | + + + | Home Phone [...] [place] | | | | | [address] | | + + + + + | Scott Mcgarry ECON | Unknown | | + + + + + Care Team Providers + +------+ + | Care Entry Level Project Coordinator Name | Role | Phone | + +------+ + | Patricia Stevens | PCP | | + +------+ + Encounter Details +--------+ + + + + | Date | Type | Department | Care Team | Description | +--------+ + + + + | 06/27/ | Telephone | Neurosurgery at | Nolvia Delgado, | | | 2015 | | [facility] [address] | MD [address] | | | | | Ave [facility] | [place], [place] | | | | | Health and Healing, | [address] | | | | | Building 1, 8th | [phone] | | | | | floor [place], [place] | | | | | | [address] | | | | | | [phone] | | | +--------+ + + + [...] | | 2019 | Visit | | [address] | | | | | | [place], [place] | | | | | | [address] | | | | | | [phone] | | | | | | | | +--------+---------+ + + + documented as of this encounter Visit Diagnoses Not on filedocumented in this encounter"
--- OUTSIDE RECORDS SUMMARY | ~2019-10-25 | XMS | Encounter Summary ---
Demographics + + + | Address | [address] | | | [place] [address] | + + + | Home Phone | | + + + | Preferred Language | Unknown | + + + | Marital Status | Single | + + + | Roman Catholic Affiliation | NRP | + + [...] [place] | | | | | [address] | | + + + + + | Scott Nicole | ECON | Unknown | | + + + + + Care Team Providers + +------+ + | Care It Support Engineer Name | Role | Phone | [...] | | | [facility] | [place], [place] | discharge 09/24/16: | | | | Health and Healing, | [address] | Bilateral Alexandra Holes | | | | Building | [phone] | for evacuation of | | | | floor [facility] [place] | | chronic subdural | | | | [address] | | hematomas (dos: 7) | | | | [phone] | | | +--------+ + + + [...] [address] | | | | | | [place], [place] | | | | | | [address] | | | | | | [phone] | | | | | | | | +--------+---------+ + + + documented as of this encounter Visit Diagnoses Not on filedocumented in this encounter"
--- OUTSIDE RECORDS SUMMARY | ~2019-10-25 | XMS | Encounter Summary ---
Demographics + + + | Address | [address] | | | [place] [address] | + + + | Home Phone | | + + + | Preferred Language | Unknown | + + + | Marital Status | Single | + + + | Yazidism Affiliation | NRP | + + + [...] [place] | | | | | [address] | | + + + + + | Scott Nicole | ECON | Unknown | | + + + + + Care Team Providers + +------+ + | Care General Matcher Name | Role | Phone | + [...] | | | [facility] | [place], [place] | | | | | Health and [facility], | [address] | | | | | [facility] | [phone] | | | | | floor [place], [place] | | | | | | [address] | | | | | | [phone] | | | +--------+ + + + [...] [address] | | | | | | [place], [place] | | | | | | [address] | | | | | | [phone] | | | | | | | | +--------+---------+ + + + documented as of this encounter Visit Diagnoses Not on filedocumented in this encounter"
--- OUTSIDE RECORDS SUMMARY | ~2019-10-25 | XMS | Encounter Summary ---
Demographics + + + | Address | [address] | | | [place] [address] | + + + | Home Phone [...] [place] | | | | | [address] | | + + + + + | Scott Mcgarry ECON | Unknown | | + + + + + Care Team Providers + +------+ + | Care Scouring Train Operator Chief Name | Role | Phone | + [...] | | 2012 | Event | [facility] | Jennifer Santiago | | | | | Boris Shahid | | | | | | Hospital Admitting | | | | | | Desk Located on the | | | | | | 9th floor | | | | | | [place], [place] | | | | | | [address] | | | +--------+ + + + [...] D - | 1230; (EVD) Ventriculostomy; | Susys Honeycutt, | Reta Daniel RN | | [...] Tracy | | | | | | [place], [place] | | | | | | [address] | | | | | | [phone] | | | | | | | [...]
--- OUTSIDE RECORDS SUMMARY | ~2019-10-25 | XMS | Encounter Summary ---
Demographics + + + | Address | [address] | | | [place] [address] | + + + | Home Phone [...] [place] | | | | | [address] | | + + + + + | Scott Mcgarry ECON | Unknown | | + + + + + Care Team Providers + +------+ + | Care Garment Finisher Name | Role | Phone | + [...] | | | [facility] | [place], [place] | | | | | Health and Healing, | [address] | | | | | [facility] | [phone] | | | | | floor [place], [place] | | | | | | [address] | | | | | | [phone] | | | +--------+---------+ + + + [...] with acqueductal stenosis, s/p ETV x 3, BASKETBALL SCOUT shunt, subdural hematoma d rainage due to [...] Tracy | | | | | | [place], [place] | | | | | | [address] | | | | | | [phone] | | | | | | | | +--------+---------+ + + + documented as of this encounter Visit Diagnoses + + | Diagnosis | + + | Hydrocephalus (HCC) - Primary Obstructive hydrocephalus | + + documented in this encounter"
--- OUTSIDE RECORDS SUMMARY | ~2019-10-25 | XMS | Encounter Summary ---
Demographics + + + | Address | [address] | | | [place] [address] | + + + | Home Phone [...] [place] | | | | | [address] | | + + + + + | Scott Mcgarry ECON | Unknown | | + + + + + Care Team Providers + +------+ + | Care Asset Protection Detective Name | Role | Phone | + [...] | | Procedures | [place], [place] | [place], [place] | | | | | REQUEST TO | [address] | [address] | | | | | SURGERY | Phone: | Phone: | | | | | EVENT SPECIALIST FOOD DEMONSTRATOR | [phone] | [phone] | | | | | [place] | Fax: | Fax: | | | | | [facility] | [phone] | [phone] | | | | | ISTERNOSTOMY | | | | | | | ,3RD | | | | | | | VENT,STEREO | | | | | | | [place] CREATE | | | | | | [...] | | | [facility] | [place], [place] | (Primary Dx) | | | | Health and Healing, | [address] | | | | | [facility] | [phone] | | | | | floor [place], [place] | | | | | | [address] | | | | | | [phone] | | | +--------+---------+ + + + [...] Tracy | | | | | | [place], [place] | | | | | | [address] | | | | | | [phone] | | | | | | | | +--------+---------+ + + + + +------+--------+ + + | Name | Type | Priori | Associated Diagnoses | Order Schedule | | | | ty | | | + +------+--------+ + + | 12 LEAD ECG | ECG | Routin | Congenital | Expected: 08/10/2013 | | | | e | hydrocephalus ([facility]) | | + +------+--------+ + + documented as of this encounter Visit Diagnoses + + | Diagnosis | + + | Congenital hydrocephalus (HCC) - Primary Congenital hydrocephalus | + + documented in this encounter"
--- OUTSIDE RECORDS SUMMARY | ~2019-10-25 | XMS | Encounter Summary ---
Demographics + + + | Address | [address] | | | [place] [address] | + + + | Home Phone [...] [place] | | | | | [address] | | + + + + + | Scott Mcgarry ECON | Unknown | | + + + + + Care Team Providers + +------+ + | Care Supervisor Testing Name | Role | Phone | + [...] | | | | s (HCC) | [place], [place] | [place] | | | | | Procedures | [address] | [address] | | | | | REQUEST TO | Phone: | Phone: | | | | | SURGERY | [phone] | [phone] | | | | | CLASSIFICATION OFFICER | Fax: | Fax: | | | | | [place] | [phone] | [phone] | | | | | [facility] | [...] | | | [facility] | [place], [place] | (Primary Dx) | | | | Health and Healing, | [address] | | | | | [facility] | [phone] | | | | | floor [place], [place] | | | | | | [address] | | | | | | [phone] | | | +--------+---------+ + + + [...] [address] | | | | | | [place], [place] | | | | | | [address] | | | | | | [phone] | | | | | | | | +--------+---------+ + + + documented as of this encounter Visit Diagnoses + + | Diagnosis | + + | Obstructive hydrocephalus (HCC) - Primary Obstructive hydrocephalus | + + documented in this encounter"
--- OUTSIDE RECORDS SUMMARY | ~2019-10-25 | XMS | Encounter Summary ---
Demographics + + + | Address | [address] | | | [place] [address] | + + + | Home Phone [...] [place] | | | | | [address] | | + + + + + | Scott Mcgarry ECON | Unknown | | + + + + + Care Team Providers + +------+ + | Care Crude Oil Treater Name | Role | Phone | + [...] + + + + | 09/20/ | Anesthesia | 6A Intra Op 3181 | Cameron Almazan, | | | 2017 | Event | [address] | [address] | | | | | [facility] | [address] | | | | | Hospital Admitting | [place], [place] | | | | | Desk Located on the | [address] | | | | | 9th floor | [phone] | | | | | [place], [place] | | | | | | [address] | | | +--------+ + + + + Anesthesia Record + + + + + | Procedure Name | Responsible | Anesthesia Start | Anesthesia Stop Time | | | Anesthesiologist | Time | | + + + + + | BILATERAL ALICE HOLES | Cameron Almazan MD | 09/20/16 1513 | 09/20/16 6811 | | FOR DRAINAGE OF | | | | | SUBDURAL HEMATOMA | | | | | (Bilateral Head) | | | | + + + + + +----+---+ + + | Da | T | Event | Comment | | te | i | | | | | m | | | | | e | | | +----+---+ + + | 07 | 1 | Pt. Check | Prior to anesthesia start, pt. Identified, examined, chart | | /0 | 4 | | reviewed, PARLaura held, anesthetic plan made or approved by | | 7/ | 3 | | attending anesthesiologist. NPO status confirmed as appropriate | | 20 | 0 | | for procedure Preoperative evaluation: unchanged | | 17 | | | | +----+---+ + + | | 1 | Eq Check | Anesthesia machine checked Equipment verified | | | 4 | | | | | 5 | | | | | 3 | | | +----+---+ + + | | 1 | | | | | 4 | | | | | 5 | | | | | 4 | | | +----+---+ + + | | 1 | An Start | | | | 5 | | | | | 1 | | | | | 3 | | | +----+---+ + + | | 1 | An Start | | | | 5 | Data | | | | 1 | | | | | 7 | | | +----+---+ + + | | 1 | Vitals | Monitors applied Vital signs checked Patient ready for anesthesia | | | 5 | Checked | | | | 2 | | | | | 0 | | | +----+---+ + + | | 1 | ETT | | | | 5 | | | | | 3 | | | | | 0 | | | +----+---+ + + | | 1 | Abx | | | | 5 | Administere | | | | 5 | d | | | | 1 | | | +----+---+ + + | | 1 | Ready | | | | 6 | | | | | 0 | | | | | 4 | | | +----+---+ + + | | 1 | Timeout | | | | 6 | | | | | 1 | | | | | 1 | | | +----+---+ + + | | 1 | Incision | | | | 6 | | | | | 1 | | | | | 2 | | | +----+---+ + + | | 1 | ICU Handoff | nsicu signout given | | | 6 | Call | | | | 5 | | | | | 3 | | | +----+---+ + + | | 1 | Medication | Hydromorphone 2 mg Fentanyl 200 mcg | | | 7 | Handoff | | | | 2 | | | | | 1 | | | +----+---+ + + | | 1 | Surgery end | | | | 7 | | | | | 3 | | | | | 8 | | | +----+---+ + + | | 1 | An Extubate | Neuromuscular function Intact. Pharynx suctioned. Patient obeys | | | 7 | | commands. Adequate pulmonary mechanics. | | | 5 | | | | | 6 | | | +----+---+ + + | | 1 | an stop | | | | 7 | data | | | | 5 | | | | | 7 | | | +----+---+ + + | | 1 | PACU Rpt | | | | 8 | Given | | | | 0 | | | | | 1 | | | +----+---+ + + | | 1 | Anesthesia | | | | 8 | End | | | | 0 | | | | | 1 | | | +----+---+ + + +------+ | Meds | +------+ + + + | Name | Total | + + + | propofol | 220 mg | + + + | lidocaine 2% | 100 mg | + + + | fentaNYL | 300 mcg | + + + | midazolam | 2 mg | + + + | PHENYLEPHrine | 50 mcg | + + + | rocuronium | 50 mg | + + + | ceFAZolin | 2,000 mg | + + + | neostigmine | 3 mg | + + + | ondansetron | 4 mg | + + + | dexamethasone | 10 mg | + + + | glycopyrrolate | 0.8 mg | + + + | LR | 2,900 mL | + + + + + | Name | + + | O2 FR Avance (Total Liters) | + + | N2O FR Avance (l/min) | + + | Air FR Avance (l/min) | + + | Insp Vic | + + | Et Vic | + + | Insp Iso | + + | Et Iso | + + | EtN2O % | + + | Insp N2O % | + + + + | No blood administrations on file. | + + +--------+ + + + | Type | Details | Placement | Removal | +--------+ + + + | Incisi | 11/08/15; (ta staff); | 11/08/15 0000 by | 09/20/161646 by | | on | Right; head; 09/20/16; 1646 | Adenike Barrow RN | Ronda Chiu RN | +--------+ + + + | Incisi | 11/08/15; (physican staff); | 11/08/15 0000 by | 09/20/161646 by | | on | abdomen; 09/20/161646 | Adenike Barrow RN | Ronda Chiu RN | +--------+ + + + | Wound | 08/17/16; 1551; Yes; Right; | 08/17/161551 by | 08/26/181941 by | | | Anterior; leg; Abrasion; | Sirisha Peguero RN | Hafsa Mercado RN | | | 08/26/181941 | | | +--------+ + + + | Wound | 08/17/16; 1555; Left; calf; | 08/17/16 155 by | 08/26/181941 by | | | Abrasion; 08/26/181941 | Sirisha Peguero RN | Hafsa Mercado RN | +--------+ + + + | Periph | 09/20/16; 1438; md lashell; Left; | 09/20/16 1438 by | 09/23/16 1602 by | | eral | Anterior; Hand; 22 g; None; | Iron Magallanes RN | Kelsy Sin RN | | IV | Positive; 09/23/16; 1602 | | | +--------+ + + + | ETT | 09/20/16; 1530; Fiordaliza Grace; | 09/20/16 1530 by | 09/21/16 0844 by | | | Endotracheal Tube; ETCO2 color | Jean Grace MD | Nile Martell RN | | | change, Breath Sounds | | | | | bilaterally, Continous | | | | | Capnography; Cuffed; 09/21/16; | | | | | 0844 (Not present at start of | | | | | shift) | | | +--------+ + + + | Urethr | 09/20/16; 1545; Nasima Leonard, Nursing | 09/20/16 1545 by | 09/21/16 1630 by | | al | Student ; 2 (Sharon Chiu RN, E. | Cat Leonard | Nile Martell RN | | Lynne | Lashell WOODS); Temp-probe Benites; 16 | | | | er | Fr.; 10 mL; 09/21/16; 1630 | | | +--------+ + + + | Periph | 09/20/16; 1602; Lesly, Fiordaliza; Right; | 09/20/16 1602 by | 09/23/16 2100 by | | eral | Medial; Wrist; 18 g; Positive; | Jean Grace MD | Katherine Pritchett RN | | IV | 09/23/16; 2100; Catheter damage | | | +--------+ + + + | Incisi | 09/20/16; 161; Dr Swann; | 09/20/16 161 by | 08/26/181941 by | | on | Right; head- parietal; 08/26/18; | Jag Parker RN | Hafsa Mercado RN | | | 1941 | | | +--------+ + + + | Incisi | 09/20/16; 1622; Dr swann; | 09/20/161621 by | 08/26/181941 by | | on | Right; head- occipital; 08/26/18; | Jag Parker RN | Hafsa Mercado RN | | | 2 | | | +--------+ + + + | Incisi | 09/20/16; 1656; Crescencio Swann MD; | 09/20/161656 by | 08/26/181941 by | | on | Left; head- parietal; 08/26/18; | Cat Leonard | Hafsa Mercado RN | | | 1941 | | | +--------+ + + + | Incisi | 09/20/16; 1657; Crescencio Swann MD; | 09/20/161657 by | 08/26/181941 by | | on | Left; head- parietal; 08/26/18; | Cat Leonard | Hafsa Mercado RN | | | 1942 | | | +--------+ + + + [...] Tracy | | | | | | [place], [place] | | | | | | [address] | | | | | | [phone] | | | | | | | | +--------+---------+ + + + documented as of this encounter Procedures + +--------+ + + + | Procedure Name | Priori | Date/Time | Associated Diagnosis | Comments | | | ty | | | | + +--------+ + + + | ANE ETT | Routin | 09/20/2016 | | Results for this | | | e | 5:57 PM | | procedure are in the | | | | PDT | | results section. | + +--------+ + + + documented in this encounter Results ANE ETT (09/20/2016 5:57 PM PDT) + + + | Narrative | Performed At | + + + | Jean Grace MD 09/20/2016 4:44 PM Procedure Reason for | | | Intubation: For surgical procedure, Location Performed: [place] , Patient | | | was preoxygenated Mask Ventilation Grade 1 - Ventilated by mask | | | Intubation Atraumatic laryngoscopy: Atraumatic Laryngoscopy, | | | Intubation adjuncts: Ramp , Laryngoscopic view: Grade I, Fiberoptics | | | used: Glidescope , Number of Attempts: 4, Positive for EtCO2: Yes, | | | Breath sounds: Bilateral and equal Prior intubation attempts: | | | Blade type: Mp , Blade size: 4, Atraumatic Laryngoscopy: no | | | second Atraumatic Laryngoscopy, Intubation adjuncts: Ramp, , | | | Laryngoscopic view: Grade III, ETT ETT Size: 7 ETT secured | | | with: adhesive tape Depth at Lip: 24 Cm Airway leak: No | | | Narrative Attending physically present Performed by Resident | | | Grade III view with Mac 3 and Mac 4. Grade I view with glidescope but | | | difficulty passing ETT due to anterior airway. Significant clear | | | secretions, requiring suctioning a few times. Some minor bleeding seen | | | on final laryngoscopy. | | + + + documented in this encounter Visit Diagnoses Not on filedocumented in this encounter Administered Medications + +--------+ + +------+------+ | Medication Order | MAR | Action | Dose | Rate | Site | | | Action | Date | | | | + +--------+ + +------+------+ | ceFAZolin (ANCEF) injection | Given | 09/21/19 | 2,000 mg | | | | intravenous, INTRAPROCEDURE PRN, | | 17 3:51 | | | | | Starting Fri09/20/16 at 1551, | | PM PDT | | | | | Until Fri09/20/16 at 1757 | | | | | | + +--------+ + +------+------+ +---+---+ | | | +---+---+ + +-------+ +------+---+---+ | dexamethasone (DECADRON) | Given | 09/21/19 | 6 mg | | | | injection INTRAPROCEDURE PRN, | | 17 5:01 | | | | | Starting Fri09/20/16 at 1555, | | PM PDT | | | | | Until Fri09/20/16 at 1757 | | | | | | + +-------+ +------+---+---+ +-------+ +------+---+---+ | Given | 09/21/19 | 4 mg | | | | | 17 3:55 | | | | | | PM PDT | | | | +-------+ +------+---+---+ +---+---+ | | | +---+---+ + +-------+ +---------+---+---+ | fentaNYL citrate (PF) | Given | 09/21/19 | 100 mcg | | | | (SUBLIMAZE) injection | | 17 4:13 | | | | | INTRAPROCEDURE PRN, Starting Fri | | PM PDT | | | | | 09/20/16 at 1524, Until Fri09/20/16 | | | | | | | at 1757 | | | | | | + +-------+ +---------+---+---+ +-------+ +---------+---+---+ | Given | 09/21/19 | 200 mcg | | | | | 17 3:24 | | | | | | PM PDT | | | | +-------+ +---------+---+---+ +---+---+ | | | +---+---+ + +-------+ +--------+---+---+ | glycopyrrolate (ROBINUL) | Given | 09/21/19 | 0.6 mg | | | | injection INTRAPROCEDURE PRN, | | 17 5:15 | | | | | Starting 09/20/16 at 1616, | | PM PDT | | | | | Until Fri09/20/16 at 1757 | | | | | | + +-------+ +--------+---+---+ +-------+ +--------+---+---+ | Given | 09/21/19 | 0.2 mg | | | | | 17 4:16 | | | | | | PM PDT | | | | +-------+ +--------+---+---+ +---+---+ | | | +---+---+ + + + +---+---+---+ | lactated Ringers IV | given by | 09/21/19 | | | | | INTRAPROCEDURE CONTINUOUS PRN, | | 17 5:47 | | | | | Starting Fri09/20/16 at 1500, | anesthes | PM PDT | | | | | Until Fri09/20/16 at 1757 | iology | | | | | + + + +---+---+---+ +---------+ +---+---+---+ | New Bag | 09/21/19 | | | | | | 17 4:30 | | | | | | PM PDT | | | | +---------+ +---+---+---+ | New Bag | 09/21/19 | | | | | | 17 3:51 | | | | | | PM PDT | | | | +---------+ +---+---+---+ +---+---+ | | | +---+---+ + +-------+ +--------+---+---+ | lidocaine (XYLOCAINE MPF) 2 % | Given | 09/21/19 | 100 mg | | | | (20 mg/mL) injection | | 17 3:24 | | | | | INTRAPROCEDURE PRN, Starting Fri | | PM PDT | | | | | 09/20/16 at 1524, Until 09/20/16 | | | | | | | at 1757 | | | | | | + +-------+ +--------+---+---+ +---+---+ | | | +---+---+ + +-------+ +------+---+---+ | midazolam (VERSED) injection | Given | 09/21/19 | 2 mg | | | | INTRAPROCEDURE PRN, Starting Fri | | 17 3:17 | | | | | 09/20/16 at 1517, Until Fri09/20/16 | | PM PDT | | | | | at 1757 | | | | | | + +-------+ +------+---+---+ +---+---+ | | | +---+---+ + +-------+ +------+---+---+ | neostigmine (PROSTIGMIN) | Given | 09/21/19 | 3 mg | | | | injection intravenous, | | 17 5:15 | | | | | INTRAPROCEDURE PRN, Starting Fri | | PM PDT | | | | | 09/20/16 at 1715, Until Fri09/20/16 | | | | | | | at 1757 | | | | | | + +-------+ +------+---+---+ +---+---+ | | | +---+---+ + +-------+ +------+---+---+ | ondansetron (ZOFRAN) injection | Given | 09/21/19 | 4 mg | | | | intravenous, INTRAPROCEDURE PRN, | | 17 5:05 | | | | | Starting Fri09/20/16 at 1705, | | PM PDT | | | | | Until Fri09/20/16 at 1757 | | | | | | + +-------+ +------+---+---+ +---+---+ | | | +---+---+ + +-------+ +--------+---+---+ | PHENYLEPHrine 100 mcg/mL IV | Given | 09/21/19 | 50 mcg | | | | syringe INTRAPROCEDURE PRN, | | 17 3:25 | | | | | Starting Fri09/20/16 at 1525, | | PM PDT | | | | | Until Fri09/20/16 at 1757 | | | | | | + +-------+ +--------+---+---+ +---+---+ | | | +---+---+ + +-------+ +-------+---+---+ | propofol INTRAPROCEDURE PRN, | Given | 09/21/19 | 50 mg | | | | Starting Fri09/20/16 at 1524, | | 17 5:32 | | | | | Until Fri09/20/16 at 1757 | | PM PDT | | | | + +-------+ +-------+---+---+ +-------+ +-------+---+---+ | Given | 09/21/19 | 40 mg | | | | | 17 5:16 | | | | | | PM PDT | | | | +-------+ +-------+---+---+ | Given | 09/21/19 | 30 mg | | | | | 17 5:12 | | | | | | PM PDT | | | | +-------+ +-------+---+---+ +---+---+ | | | +---+---+ + +-------+ +-------+---+---+ | rocuronium (ZEMURON) injection | Given | 09/21/19 | 50 mg | | | | INTRAPROCEDURE PRN, Starting Fri | | 17 3:25 | | | | | 09/20/16 at 1525, Until Fri09/20/16 | | PM PDT | | | | | at 1757 | | | | | | + +-------+ +-------+---+---+ +---+---+ | | | +---+---+ documented in this encounter"
--- OUTSIDE RECORDS SUMMARY | ~2019-10-25 | XMS | Encounter Summary ---
Demographics + + + | Address | [address] | | | [place] [address] | + + + | Home Phone [...] [place] | | | | | [address] | | + + + + + | Scott Nicole | ECON | Unknown | | + + + + + Care Team Providers + +------+ + | Care Design Sales Consultant Name | Role | Phone | + +------+ + | Patricia Bowers | PCP | | + +------+ + Encounter Details +--------+ + + + + | Date | Type | Department | Care Team | Description | +--------+ + + + + | 06/26/ | Hospital | Radiology/Imaging | | | | 2012 | Encounter | Lab at [facility] [address] [facility], | | | | | | [facility] [address], 3rd | | | | | | Floor [place], [place] | | | | | | [address] | | | | | | [phone] | | | +--------+ + + + [...] [place] | | | | | | [place], [place] | | | | | | [address] | | | | | | [phone] | | | | | | | | +--------+---------+ + + + documented as of this encounter Procedures + +--------+ + + + | Procedure Name | Priori | Date/Time | Associated Diagnosis | Comments | | | ty | | | | + +--------+ + + + | X-RAY ANKLE 3 VIEWS | Routin | 06/26/2012 | Ankle pain | Results for this | | RIGHT | e | 11:48 AM | | procedure are in the | | | | PDT | | results section. | + +--------+ + + + documented in this encounter Results X-RAY ANKLE 3 VIEWS [...] | | | | | | JOSIAH MARY, | | | | | | MDAuthor: [...] Diagnosis | + + | Ankle pain Pain in joint, ankle and foot | + + documented in this encounter"
--- OUTSIDE RECORDS SUMMARY | ~2019-10-25 | XMS | Encounter Summary ---
Demographics + + + | Address | [address] | | | [place] [address] | + + + | Home Phone [...] + + + | Author | [facility] | + + + | Organization | [facility] | + + + | Address | Unknown | + + + | Phone | Unavailable | + + + Support + + + + + | Name | Relationship | Address | Phone | + + + + + | Malina Nicole | ECON | [address] | | | | | [place] | | | | | [address] | | + + + + + | Scott Nicole | ECON | Unknown | | + + + + + Care Team Providers + +------+ + | Care Injection Molding Technician Name | Role | Phone | + +------+ + | Patricia [place] | PCP | | + +------+ + Reason for Visit + + + | Reason | Comments | + + + | Post-discharge | s/p admission 11/24/15 -02/08/15: Redo left endoscopic third | | follow-up | ventriculostomy (02/07/15) | + + + Encounter Details +--------+ + + + + | Date | Type | Department | Care Team | Description | +--------+ + + + + | 02/14/ | Telephone | Neurosurgery at | Nolvia Delgado, | Post-discharge | | 2014 | | [facility] [address] | [address] | follow-up (s/p | | | | [facility] | [place], [place] | admission 02/07/15 | | | | [facility] Healing, | [address] | -02/08/15: Redo left | | | | | [phone] | endoscopic third | | | | floor [place], [place] | | ventriculostomy | | | | [address] | | (02/07/15)) | | | | [phone] | | | +--------+ + + + [...] Tracy | | | | | | [place], [place] | | | | | | [address] | | | | | | [phone] | | | | | | | | +--------+---------+ + + + documented as of this encounter Visit Diagnoses Not on filedocumented in this encounter"
--- OUTSIDE RECORDS SUMMARY | ~2019-10-25 | XMS | Encounter Summary ---
Demographics + + + | Address | [address] | | | [place] [address] | + + + | Home Phone [...] [place] | | | | | [address] | | + + + + + | Scott Mcgarry ECON | Unknown | | + + + + + Care Team Providers + +------+ + | Care Supervisor Color Paste Mixing Name | Role | Phone | + [...] + | Closed | | Radiology | Procedures | [place], | Rad Ct Scan | | | | | CT HEAD WO | Carlos Humphries MD | [facility] [address] | | | | | CONTRAST | [address] | [address] | | | | | | Leighton Sena | Haydee Escalante [facility] | | | | | | Rd | [facility], | | | | | | [place], [place] | 10th Floor | | | | | | [address] | [place], [place] | | | | | | Phone: | [address] | | | | | | [phone] | Phone: | | | | | | Fax: | [phone] | | | | | | [phone] | Fax: | | | | | | | [phone] | +--------+--------+ + + + + Diagnostic Testing (Routine) +--------+--------+ + + + + | Status | Reason | Specialty | Diagnoses / | Referred By | Referred To | | | | | Procedures | Contact | Contact | +--------+--------+ + + + + | Closed | | Radiology | Procedures | [place], | Rad Ct Scan | | | | | CT HEAD WO | Pia Jarquin MD | [facility] [address] | | | | | CONTRAST | [address] | [address] | | | | | | [address] | [address] [facility] | | | | | | [address] | Hospital, | | | | | | [place], [place] | 10th Floor | | | | | | [address] | [place], [place] | | | | | | Phone: | [address] | | | | | | [phone] | Phone: | | | | | | Fax: | [phone] | | | | | | [phone] | Fax: | | | | | | | [phone] | +--------+--------+ + + + + Reason [...] + + + + | 03/20/ | Hospital | [facility] [address] | Nolvia Delgado, | | | 2012 - | Encounter | [address] | [address] | | | | | [id number] [facility] | [place], [place] | | | 03/24/ | | [facility], | [address] | | | 2012 | | [place] [address] | [phone] | | | | | [phone] | | | +--------+ + + + [...] over the last several years, admitted to [facility] electively on 03/20/2012 for the proc edures [...] rehabilitation team with recommendation for home with antonio harmon upon discharge. While on the hospital floor, [...] Discharge Stable Follow Up Follow up at [facility], [facility], 8th Floor, [address] [place], [place] [address] with Dr. Delgado on 04/15/12 at 09:00am. Future Appointments Date & Time Provider Department Dept Phone Center 04/15/2012 9:00 AM Nolvia Delgado MD Neurosurgery [phone] Neurosurgery Warning Symptoms and Signs Please call the Neurosurgery clinic at [phone] with any questions Friday to Friday 8 A M - 4 PM. After hours, call [facility] at [phone] and ask to speak with the Neurosurgery resi dent cotton tier if you have any of the following: [...] O2 Delivery Device: None (room air) (03/24/12 0329) 24 Hour Vital Min/Max: Systolic (24hrs), Av [...] 3 results): Recent Labs Basename 03/24/12 0316 03/23/12 2043 03/23/12 1530 03/23/12 0804 03/22/12 0249 NA 130* [...] family assistance today 03/24/12 LIZBETH ONEAL PA-C [facility] [address] [address]/[place] [address] [address] [phone] MEDICATIONS Current Facility-Administered Medications Medication acetaminophen (aka [...] results) Recent Labs Basename 03/23/12 0804 03/22/12 02403/21/12 0157 WBC 14.2* 15.0* 17.3* HB 13.7 12.7 12.8 HCT 40.5 36.8 37.9 PLT 253 248 248 NEUTROPERC -- -- -- BANDPCT -- -- -- LYMPHPERC -- -- -- MONOPERC -- -- -- BASOPERC -- -- -- EOSPERC -- -- -- Chemistries: Last 72 Hours (or 3 results): Recent Labs Basename 03/23/12 1019 03/23/12 0804 03/23/12 0803 03/22/12 02403/21/12 0157 NA 128* 126* -- 133* -- [...] assistance tomorr ow 03/24/12 LIZBETH ONEAL PA-C [address] [address]/[place] [address] [address] [phone] MEDICATIONS Current Facility-Administered Medications Medication acetaminophen (aka [...] with the primary team and the consultants [facility] ed. Rocky Salazar MD horr all, REENA Hamilton - 03/22/2012 12:44 PM PST [facility] Neuroscience ICU Progress Note Team Pager: [phone] Attendin Patient name: Rin Casas Author: REENA [...] IV Fluids: CPIV's Recent Labs Basename 03/22/12 24803/21/1215603/20/12 1053 NA 133* 135* 143 K 3.7 [...] of Bead: >30 degrees Recent Labs Basename 03/22/1224803/21/1215603/20/12 1053 WBC 15.0* 17.3* 10.6 HB 12.7 [...] Salazar, attending physician, who agrees with the [facility] assessment and plan. REENA BASS [facility] DEPARTMENT: [id number] ICU NEURO Place of Service:- Inpatient Date of Service: 03/22/2012 CSN: [id number] Suggested Modifier: None Suggested CPT: TO HARD ROCK MINER BLASTING Estela Gaffney MD - 03/22/2012 5:22 AM [...] Estela Mauricio MS, MD Neurological Surgery, PGY-4 20 Sujata Lakhani MD - 03/21/2012 9:48 PM PST NSICU Neuroscience ICU Attending Director Machine Note Rin Casas is a 41 y.o. female admitted 03/20/2012 5:22 AM.I have seen and evaluated Ca chary Casas with AMMONIA WORKER Leslie Lester, and reviewed the chart, lab and [...] management of this patient. SUJATA SABA MD [facility] DEPARTMENT: [id number] ICU NEURO Place of Service:- Inpatient Date of Service: 03/21/2012 CSN: [id number] Suggested Modifier: GC - Resident Involved Suggested CPT: TO CODER P M Rocky Perez MD - 03/21/2012 9:22 AM PST 7NSICU ATTENDING DOBBY LOOM FIXER DAILY PROGRESS NOTE Team Pager: [phone] Attendin Date:03/21/2012 Critical Care Attending Physician: ROCKY SALAZAR MD Referring Attending Yandel parks: Nolvia Delgado MD I saw and evaluated the patient at the bedside together with Justino Tong (AMMONIA WORKER). Please see her note for details of [...] management of this patient. Rocky Salazar MD [facility] DEPARTMENT: [id number] ICU NEURO Place of Service:- Inpatient Date of Service: 03/21/2012 CSN: [id number] Suggested Modifier: None Suggested CPT: TO HARD ROCK MINER BLASTING RELEVANT DATA: Last Vitals: BP 128/81 | [...] BASOPERC -- -- EOSPERC -- -- Caesar Mosqueda AMMONIA WORKER - 03/21/2012 6:01 AM PST 7NSICU Neuroscience ICU Progress Note Team Pager: [phone] Attendin Attending Director Machine: Primary Service Attending: MD Nolvia Manning MD HD # 2 POD# 1 Procedure: 3rd ventriculostomy, EVD placement ICU day # 2 HPI: Rin Casas is a 41 y.o. Female with a h/o congenital hydrocephalus, CP, seizures admitted 03/20/2012 to NSICU s/p 3rd ventriculostomy and EVD placement for [...] Intake/Output Summary (Last 24 hours) at 03/21/12 06 Last data filed at 03/21/12 0500 Gross [...] 94 kg (207 lb 3.7 oz) (03/20/12 0604) Today s weight: Not on file. Date 03/20/12699 - 03/21/1265803/21/12699 - 03/22/12658 Shift 0481-3652 4328-3288 7126-5496 Daily Total 6740-2001 1656-9728 2642-7527 Daily Total I N T A K E P.O. 340 240 580 I.V. 2019 920 692.4 3632.4 Shift Total 2019 1260 932.4 4212.4 O U T P U T Urine 325 475 657 5738 Urine 325 922 233 7811 Emesis 200 200 Emesis 200 200 Emesis 2 2 Drains 3 5 20 28 CSF Output (CSF Catheter Left;Frontal) 3 5 20 28 Other 5 5 Menstruation 1 1 EBL 5 5 Shift Total 333 148 052 7021 NET 1687 705 337.4 2729.4 Chemistries: Last 72 Hours (or 3 results): Recent Labs Basename 03/21/12 02203/21/1215603/20/12 1053 NA -- 135* 143 K -- 3.8 3.9 CL -- 107 111* BICARB -- 20* 21 BUN -- 8 8 CR -- 0.59* 0.76 GLU 131* 108* 109* CA -- 8.3* 8.1* MG -- 1.9 -- PO4 -- 1.6* -- CBC with diff last 72 hours (or 3 results) Recent Labs Basename 03/21/12 01503/20/12 1053 WBC 17.3* 10.6 HB 12.8 13.8 [...] nervous system failure at t his time. [facility] DEPARTMENT: [id number] ICU NEURO Place of Service:- Inpatient Date of Service: 03/21/2012 CSN: [id number] Suggested Modifier: None Suggested CPT: TO HARD ROCK MINER BLASTING This patient has been staffed with Dr. Rocky Salazar, attending physician, who agrees with sonya above assessment and plan. CHI Greenberg NP olvia Delgado MD - 03/21/2012 5:00 AM PST NEUROSURGERY [...] and have documented any additions or exceptions. arsmatt, Rocky Liang MD - 03/20/2012 4:59 PM PST 7NSICU ATTENDING DOBBY LOOM FIXER DAILY PROGRESS NOTE Team Pager: [phone] Attendin Date:03/20/2012 Critical Care Attending Physician: ROCKY SALAZAR MD Referring Attending P sician: Nolvia Delgado MD I saw and evaluated the patient at the bedside together with Justino Tong (AMMONIA WORKER). Please see her note for details of the encounter. I reviewed the all data and the recent imaging available . I have discussed findings and plan of care with the primary team and the consultants invol ed. (Relevant data is listed at the [...] of this patient . Rocky Salazar MD [facility] DEPARTMENT: [id number] ICU NEURO Place of Service:- Inpatient Date of Service: 03/20/2012 CSN: [id number] Suggested Modifier: None Suggested CPT: TO HARD ROCK MINER BLASTING RELEVANT DATA: Last Vitals: BP 113/66 | [...] -- MONOPERC -- BASOPERC -- [facility]PERC -- [facility] - 03/20/2012 11:55 AM [facility] NEUROSURGERY POST OPERATIVE CHECK Author: PIA KELLY [...] FINDINGS: A&O to name, and hospital in [place]; believes it's 2011 (month unknown) Following commands, [...] Tracy | | | | | | [place], [place] | | | | | | [address] | | | | | | [phone] | | | | | | | [...] Nolvia Delgado M.D. | | | | Event Management Consultant(s): Carlos Baron M.D. | | | | [...] | | AR / HS | | [id number] / [id number] / [id number] / | | | | | + [...] | + + + + + | [facility] | [address] | [place] [address] | | | SERVICES, CORE | HAYDEE [...] | + + + + + | [facility] | [address] | [place] [address] | | | SERVICES, CORE | HAYDEE [...] [facility] | [address] | [place] [address] | | | SERVICES, CORE | HAYDEE [...] [facility] | [address] | [place] [address] | | | SERVICES, CORE | HAYDEE [...] [facility] | [address] | [place] [address] | | | SERVICES, CORE | PARK [...] and volume. | LABORATORY | | | RYNE ARIAS | + + + + + + + + | Performing | Address | City/State/Zipcode | Phone Number | | Organization | | | | + + + + + | [facility] | [address] | [place] [address] | | | SERVICES, RYNE | HAYDEE [...] Hr. fluid restriction: >850 mOm/kg H20 | RYNE ARIAS | + + + + + + + + | Performing | Address | City/State/Zipcode | Phone Number | | Organization | | | | + + + + + | [facility] | [address] | [place] [address] | | | RYNE ARIAS | HAYDEE [...] | [facility] | [address] [facility] | [place] [address] | | | SERVICES, CORE | PARK [...] | + + + + + | [facility] | [address] | [place] [address] | | | SERVICES, CORE | PARK [...] test result. | LABORATORY | | | SERVICES, CORE | + + + + + + + + | Performing | Address | City/State/Zipcode | Phone Number | | Organization | | | | + + + + + | [facility] | [address] | [place] [address] | | | SERVICES, CORE | HAYDEE [...] + + + | [facility] | [address] | [place], [place] | | | BOB POINT OF CARE | [address] | [address] | | | TESTS | | | | + + + + + CAPILLARY BLOOD GLUCOSE (SHARRON BECKG)ALICIA (03/23/2012 6:13 AM PST) + +-------+ + [...] [facility] | [address] | [place], [place] | | | BOB POINT OF CARE | [address] | [address] | | | TESTS | | | [...] | + + + + + | [facility] | [address] | [place], [place] | | | [facility] | [address] | [address] | | | TESTS | | | [...] | + + + + + | [facility] | [address] | [place] [address] | | | SERVICES, CORE | [address] | | | + + + + + MAGNESIUM, PLASMA (03/22/2012 2:49 AM PST) + +---------+ + + + | Component | Value | Ref Range | Performed | Pathologist | | | | | At | Signature | + +---------+ + + + | MAGNESIUM,P | 1.6 (L) | 1.8 - 2.5 mg/dL | [facility] | | | [facility] | | | LABORAT[facility] | | | [...] | + + + + + | [facility] | [address] | [place] [address] | | | SERVICES, RYNE | HAYDEE [...] [facility] | [address] | [place] [address] | | | SERVICES, CORE | [address] | | | + + + + + OPERATION RECORD (03/21/2012 1:59 PM PST) + + | Transcriptions | + + | Carlos Baron MD - 03/20/2012 11:00 PM PST | | Date: 03/20/2012 | | | | Attending Surgeon: Nolvia Delgado M.D. | | | | Event Management Consultant(s): Carlos Baron M.D. | | | | [...] head was placed in a | | [employer] 3-pin headholder, and all pressure points were [...] The patient | | was removed from [employer] 3-pin headholder and extubated in the operating | | room. | | | | Counts: | | All sponge and needle counts were correct at the end of the case. | | | | | | Carlos Baron M.D. | | | | | | Nolvia Delgado M.D. | | | | DARNELL / WILMAR | | [id number] / [id number] / [id number] / | | | | | + [...] [facility] | [address] | [place], [place] | | | [facility]T [facility] OF [facility] | [facility] | [address] | | | TESTS | | | [...] + | [facility] | [address] | [place] [address] | | | SERVICES, RYNE | [address] | | | + + + + + MAGNESIUM, PLASMA (03/21/2012 1:57 AM PST) + +-------+ + + + | Component | Value | Ref Range | Performed | Pathologist | | | | | At | Signature | + +-------+ + + + | MAGNESIUM,P | 1.9 | 1.8 - 2.5 mg/dL | [facility] [...] [facility] | [address] | [place] [address] | | | SERVICES, CORE | PARK [...] | + + + + + | [facility] | [address] | [place] [address] | | | SERVICES, CORE | HAYDEE [...] | | | | | ronny / Davis | | | | | | Jolene 03/20/2012 | | | | | | 16:07 PM Pending final | | | | | | approval / BERTA | | | | | | NAZIA 03/20/2012 | | | | | | 13:57 PM Preliminary / | | | | | | BERTA NAZIA | | | | | | 03/20/2012 [...] | + + + + + | [facility] | [address] | [place] [address] | | | SERVICES, CORE | HAYDEE [...] + | [facility] | [address] | [place] [address] | | | SERVICES, CORE | PARK [...] [facility] | [address] | [place] [address] | | | SERVICES, RYNE | [address] [...] | | | | | | Davis Fernández, | | | | | | ThomasAuthor: [...] | | | | | ronny / Davis | | | | | [...] | | + +--------+ + +------+------+ | calcium carbonate chewable (aka | Given | 03/23/19 | 200 mg | | | | TUMS) tablet 200 mg elemental | | 13 9:35 | elementa | | | | 200 mg elemental (500 mg total | | PM PST | l | | | | salt), oral, THREE TIMES DAILY | | | | | | | NEEDED, Starting Fri03/23/12 at | | | | | | | 2121, Until Fri03/24/12 at 1849, | | | | | | | dyspepsia | | | | | | + +--------+ + +------+------+ +---+---+ | | | +---+---+ + +---------+ +-----+--------+---+ | ceFAZolin in NaCl 0.45% (aka | New Bag | 03/21/19 | 2 g | mL/hr | | | ANCEF) IV (ADD-[place]) 2 g 2 g, | | 13 3:46 | | | | | intravenous, EVERY 8 HOURS, 3 | | AM PST | | | | | doses, First dose on Fri03/20/12 | | | | | | | at 1200, Last dose on Fri03/21/12 | | | | | | | at 0400 | | | | | | + +---------+ +-----+--------+---+ +---------+ +-----+--------+---+ | New Bag | 03/20/19 | 2 g | mL/hr | | | | 13 7:58 | | | | | | PM PST | | | | +---------+ +-----+--------+---+ | New Bag | 03/20/19 | 2 g | mL/hr | | | | 13 2:18 | | | | | | PM PST | | | | +---------+ +-----+--------+---+ +---+---+ | | | +---+---+ + +---------+ +------+--------+---+ | dexamethasone (aka DECADRON) | New Bag | 03/20/19 | 8 mg | mL/hr | | | injection 8 mg 8 mg, | | 13 10:48 | | | | | intravenous, POSTPROCEDURE PRN, 1 | | AM PST | | | | | dose, Starting Fri03/20/12 at | | | | | | | 0845, Until Fri03/20/12 at 1048, | | | | | | | nausea/vomiting | | | | | | + +---------+ +------+--------+---+ + +---+ | | | + +---+ | dexamethasone (aka DECADRON) | | | injection 1 dose, Starting Fri | | | 03/20/12 at 1042, Until 03/20/12 | | | at 1048 | | + +---+ | | | + +---+ + +-------+ +--------+---+---+ | lamoTRIgine (aka LAMICTAL) | Given | 03/24/19 | 100 mg | | | | tablet 100 mg 100 mg, oral, | | 13 8:34 | | | | | TWICE DAILY, First dose on Fri | | AM PST | | | | | 03/20/12 at 1215, Until | | | | | | | Discontinued | | | | | | + +-------+ +--------+---+---+ + + +--------+---+---+ | Given | 03/23/19 | 100 mg | | | | | 13 8:57 | | | | | | PM PST | | | | + + +--------+---+---+ | See OB TraceVue | 03/23/19 | 100 mg | | | | | 13 8:19 | | | | | | AM PST | | | | + + +--------+---+---+ +---+---+ | | | +---+---+ + +---------+ +-----+--------+---+ | magnesium sulfate IV (premade) | New Bag | 03/21/19 | 1 g | mL/hr | | | 1 g 1 g, intravenous, ONCE, 1 | | 13 3:46 | | | | | dose, 03/21/12 at 0415 | | AM PST | | | | + +---------+ +-----+--------+---+ +---+---+ | | | +---+---+ + +---------+ +-----+--------+---+ | magnesium sulfate IV 2 g 2 g, | New Bag | 03/22/19 | 2 g | mL/hr | | | intravenous, ONCE, 1 dose, Sun | | 13 2:50 | | | | | 03/22/12 at 1515 | | PM PST | | | | + +---------+ +-----+--------+---+ +---+---+ | | | +---+---+ + +-------+ +---------+---+---+ | meperidine (aka DEMEROL) | Given | 03/20/19 | 12.5 mg | | | | injection 25 mg 25 mg, | | 13 11:13 | | | | | intravenous, POSTPROCEDURE PRN, | | AM PST | | | | | Starting 03/20/12 at 0845, | | | | | | | Until 03/20/12 at 1131, | | | | | | | shivering | | | | | | + +-------+ +---------+---+---+ + +---+ | | | + +---+ | meperidine (aka DEMEROL) | | | injection 1 dose, Starting Fri | | | 03/20/12 at 1037, Until 03/20/12 | | | at 1113 | | + +---+ | | | + +---+ + +---------+ +-------+--------+---+ | metoclopramide HCl (karma PEREZ) | New Bag | 03/21/19 | 10 mg | mL/hr | | | injection 5-10 mg 5-10 mg, | | 13 3:46 | | | | | intravenous, EVERY 4 HOURS | | AM PST | | | | | NEEDED, Starting Fri03/20/12 at | | | | | | | 1145, Until Fri03/24/12 at 1849, | | | | | | | nausea/vomiting | | | | | | + +---------+ +-------+--------+---+ +---------+ +-------+--------+---+ | New Bag | 03/20/19 | 10 mg | mL/hr | | | | 13 11:55 | | | | | | AM PST | | | | +---------+ +-------+--------+---+ +---+---+ | | | +---+---+ + +---------+ + + +---+ | NaCl 0.9 % IV 10 mL/hr, | New Bag | 03/20/19 | 10 mL/hr | 10 mL/hr | | | intravenous, PROCEDURE | | 13 6:30 | | | | | CONTINUOUS, Starting Fri03/20/12 | | AM PST | | | | | at 0600, Until 03/20/12 at 1131 | | | | | | + +---------+ + + +---+ +---+---+ | | | +---+---+ + + + +---+ +---+ | NaCl 0.9%-KCl 20 mEq/L IV | Rate/Dos | 03/21/19 | | 50 mL/hr | | | infusion intravenous, | e Change | 13 7:00 | | | | | CONTINUOUS, Starting Fri03/20/12 | | AM PST | | | | | at 1200, Until 03/22/12 at | | | | | | | 1156, at 100 mL/hr | | | | | | + + + +---+ +---+ +---------+ +---+-------+---+ | New Bag | 03/20/19 | | 100 | | | | 13 11:45 | | mL/hr | | | | PM PST | | | | +---------+ +---+-------+---+ | New Bag | 03/20/19 | | 100 | | | | 13 11:56 | | mL/hr | | | | AM PST | | | | +---------+ +---+-------+---+ +---+---+ | | | +---+---+ + +---------+ +------+--------+---+ | ondansetron (karma PARMAR) | New Bag | 03/20/19 | 4 mg | mL/hr | | | injection 4 mg 4 mg, | | 13 10:48 | | | | | intravenous, ONCE, 1 dose, Fri | | AM PST | | | | | 03/20/12 at 1100 | | | | | | + +---------+ +------+--------+---+ +---+---+ | | | +---+---+ + +---------+ +------+--------+---+ | ondansetron (aka ZOFRAN) | New Bag | 03/21/19 | 4 mg | mL/hr | | | injection 4 mg 4 mg, | | 13 8:43 | | | | | intravenous, EVERY 8 HOURS, 3 | | AM PST | | | | | doses, First dose on Fri03/20/12 | | | | | | | at 1600, Last dose on Fri03/21/12 | | | | | | | at 0800 | | | | | | + +---------+ +------+--------+---+ +---------+ +------+--------+---+ | | 03/20/19 | 4 mg | mL/hr | | | | 13 4:00 | | | | | | PM PST | | | | +---------+ +------+--------+---+ +---+---+ | | | +---+---+ + +---------+ +------+--------+---+ | ondansetron (aka ZOFRAN) | New Bag | 03/20/19 | 4 mg | mL/hr | | | injection 4 mg 4 mg, | | 13 11:45 | | | | | intravenous, EVERY 8 HOURS | | PM PST | | | | | NEEDED, Starting 03/21/12 at | | | | | | | 0000, Until 03/22/12 at 2359, | | | | | | | nausea/vomiting | | | | | | + +---------+ +------+--------+---+ + +---+ | | | + +---+ | ondansetron (aka GHULAM) | | | injection 1 dose, Starting Fri | | | 03/20/12 at 1042, Until 03/20/12 | | | at 1048 | | + +---+ | | | + +---+ + +-------+ +------+---+---+ | polyethylene glycol (aka | Given | 03/23/19 | 17 g | | | | MIRALAX) powder 17 g 17 g, oral, | | 13 8:21 | | | | | DAILY NEEDED, Starting Fri | | AM PST | | | | | 03/20/12 at 1145, Until 03/24/12 | | | | | | | at 1849, constipation, No BM in | | | | | | | past 3 days | | | | | | + +-------+ +------+---+---+ +---+---+ | | | +---+---+ + +-------+ +--------+---+---+ | potassium chloride (aka | Given | 03/22/19 | 20 mEq | | | | KAOCHLOR) liquid 10-40 mEq 10-40 | | 13 5:05 | | | | | mEq, oral, NEEDED, Starting | | AM PST | | | | | 03/21/12 at 1140, Until Sun | | | | | | | 03/22/12 at 1156, hypokalemia per | | | | | | | protocol | | | | | | + +-------+ +--------+---+---+ +-------+ +--------+---+---+ | Given | 03/21/19 | 20 mEq | | | | | 13 12:08 | | | | | | PM PST | | | | +-------+ +--------+---+---+ +---+---+ | | | +---+---+ + +-------+ + +---+---+ | senna-merrickusate (karma Seth) | Given | 03/24/19 | 1 tablet | | | | 8.6-50 mg 1 Tab 1 tablet, oral, | | 13 8:34 | | | | | TWICE DAILY, First dose on Fri | | AM PST | | | | | 03/20/12 at 1215, Until | | | | | | | Discontinued | | | | | | + +-------+ + +---+---+ + + + +---+---+ | Given | 03/23/19 | 1 tablet | | | | | 13 8:57 | | | | | | PM PST | | | | + + + +---+---+ | See OB TraceVue | 03/23/19 | 1 tablet | | | | | 13 8:19 | | | | | | AM PST | | | | + + + +---+---+ +---+---+ | | | +---+---+ + +-------+ +-----+---+---+ | sodium chloride tablet 3 g 3 | Given | 03/24/19 | 3 g | | | | g, oral, THREE TIMES DAILY WITH | | 13 8:34 | | | | | MEALS, First dose (after last | | AM PST | | | | | modification) on 03/23/12 at | | | | | | | 1700, Until Discontinued | | | | | | + +-------+ +-----+---+---+ +-------+ +-----+---+---+ | Given | 03/23/19 | 3 g | | | | | 13 5:18 | | | | | | PM PST | | | | +-------+ +-----+---+---+ +---+---+ | | | +---+---+ + +---------+ +---------+--------+---+ | sodium phosphate IV 15 mmol 15 | New Bag | 03/21/19 | 15 mmol | mL/hr | | | mmol, intravenous, ONCE, 1 dose, | | 13 5:17 | | | | | 03/21/12 at 0415 | | AM PST | | | | + +---------+ +---------+--------+---+ +---+---+ | | | +---+---+ + +---------+ +---------+--------+---+ | sodium phosphate IV 30 mmol 30 | New Bag | 03/22/19 | 30 mmol | mL/hr | | | mmol, intravenous, ONCE, 1 dose, | | 13 3:06 | | | | | 03/22/12 at 1515 | | PM PST | | | | + +---------+ +---------+--------+---+ +---+---+ | | | +---+---+ documented in this encounter
--- OUTSIDE RECORDS SUMMARY | ~2019-10-25 | XMS | Encounter Summary ---
Demographics + + + | Address | [address] | | | [place] [address] | + + + | Home Phone [...] [place] | | | | | [address] | | + + + + + | Scott Mcgarry ECON | Unknown | | + + + + + Care Team Providers + +------+ + | Care Formulation Scientist Name | Role | Phone | + [...] 2013 | | [address] | [address] | ENDOSCOPIC THIRD | | | | [facility] | [place], [place] | VENTRICULOSTOMY, | | | | Hospital Admitting | [address] | | | | | Desk Located on the | [phone] | | | | | 9th floor | | | | | | [facility] [place] | | | | | | [address] | | | +--------+---------+ + + + [...] Nolvia Delgado MD PCP: REENA Patricia Service: [facility] Neurosurgery Diagnoses Principal Final Diagnosis: Hydrocephalus [...] the patient was followed closely by the [facility] providers, resident providers, and medical/nursing staff. [...] 1:42 PM Discharging Attending: Nolvia Delgado MD [facility] [address]C [address]SI [address] 7c/ohs8[place] [address] documented in this en counter Discharge Instructions Instructions Malou Ch RN - 09/15/2013Patient Education Materials: Craniotomy post-o p instructions, AVS Additional Instructions: none Discharge Nurse: MALOU CH Date: 09/15/2013 Discharge Time: 14:20 PM AttachmentsThe following attachments cannot be sent through Care Everywhere.CRANIOTOMY : PO ST-OP (UZBEK)documented in this encounter Medications at Time of [...] - 09/15/2013 10:11 AM PDT 7NSU ATTENDING ASSEMBLER RADIO AND ELECTRICAL DAILY PROGRESS NOTE Team Pager: [phone] Attendin Date:09/15/2013 Critical Care Attending Physician: UBALDO NEWMAN MD Referring Atte nying Physician: Nolvia Delgado MD I saw and [...] management of this patient . MD, PhD [facility] DEPARTMENT: [id number] ICU NEURO Place of Service:- Inpatient Date of Service: 09/15 CSN: [id number] Suggested Modifier: GC - Resident Involved Suggested CPT: TO LAP MACHINE OPERATOR RELEVANT DATA: Last Vitals: BP 137/75 | [...] Newman. Note Author: DAVINA PIZARRO MD Pager [phone] iDavin anderson MD,MP H - 09/14/2013 9:16 [...] Tracy | | | | | | [place], [place] | | | | | | [address] | | | | | | [phone] | | | | | | | [...] | | 09/14/2013ttending Surgeon: Nolvia Delgado MD Geophysical Computer(s): Mehrdad | | MD Tito, PhD Preoperative [...] 09/14/2013 | | 20:56:59DT: 09/14/2013 21:33:07Job #: [id number] | + + CBC (HEMOGRAM) ONLY (09/15/2013 [...] [facility] | [address] | [place] [address] | | | SERVICES, CORE | PARK [...] | | | LABORATORY | | | [facility] | | | SERVICES, | | | [...] + | [facility] | [address] | [place] [address] | | | SERVICES, CORE | HAYDEE [...] + | [facility] | [address] | [place] [address] | | | SERVICES, | [address] [...] [facility] | [address] | [place] [address] | | | SERVICES, | [address] [...]
--- OUTSIDE RECORDS SUMMARY | ~2019-10-25 | XMS | Encounter Summary ---
Demographics + + + | Address | [address] | | | [place] [address] | + + + | Home Phone [...] Author + + + | Author | [facility] | + + + | Organization | [facility] | + + + | Address | Unknown | + + + | Phone | Unavailable | + + + Support + + + + + | Name | Relationship | Address | Phone | + + + + + | Malina Nicole | ECON | [address] | | | | | [place] | | | | | [address] | | + + + + + | Scott Mcgarry ECON | Unknown | | + + + + + Care Team Providers + +------+ + | Care Outsole Cementer Name | Role | Phone | + [...] | | | | s (HCC) | [place], [place] | Research | | | | | Procedures | [address] | Center | | | | | MRI BRAIN WO | Phone: | [place], [place] | | | | | AND CINE | [phone] | [address] | | | | | 3RD | Fax: | Phone: | | | | | VENTRICULOST | [phone] | [phone] | | | | | RITA | | Fax: | | | | | | | [phone] | +--------+--------+ + + + + Encounter Details +--------+ + + + + | Date | Type | Department | Care Team | Description | +--------+ + + + + | 10/25/ | Hospital | Diagnostic Imaging | | | | 2016 | Encounter | Services at [facility] | | | | | | [address] | | | | | | [place] | | | | | | Research Center | | | | | | [facility] [place] | | | | | | [address] | | | | | | [phone] | | | +--------+ + + + [...] Tracy | | | | | | [place], [place] | | | | | | [address] | | | | | | [phone] | | | | | | | [...] | | + +---------+ + + | [facility] OF | | | | | RADIOLOGY | | | | + +---------+ + + documented in this encounter Visit Diagnoses + + | Diagnosis | + + | Obstructive hydrocephalus (HCC) Obstructive hydrocephalus | + + documented in this encounter"
--- OUTSIDE RECORDS SUMMARY | ~2019-10-25 | XMS | Encounter Summary ---
Demographics + + + | Address | [address] | | | [place] [address] | + + + | Home Phone [...] [place] | | | | | [address] | | + + + + + | Scott Mcgarry ECON | Unknown | | + + + + + Care Team Providers + +------+ + | Care Batter Depositor Name | Role | Phone | + [...] | s (HCC) | Ave [address] | | | | | Procedures | [place], [place] | Research | | | | | MRI BRAIN WO | [address] | Center | | | | | CONTRAST | Phone: | [place], [place] | | | | | | [phone] | [address] | | | | | | Fax: | Phone: | | | | | | [phone] | [phone] | | | | | | | Fax: | | | | | | | [phone] | +--------+--------+ + + + + Reason [...] | | | | | Procedures | [place], [place] | Research | | | | | MRI BRAIN WO | [address] | Center | | | | | CONTRAST | Phone: | [place], [place] | | | | | | [phone] | [address] | | | | | | Fax: | Phone: | | | | | | [phone] | [phone] | | | | | | | Fax: | | | | | | | [phone] | +--------+--------+ + + + + Encounter Details +--------+ + + + + | Date | Type | Department | Care Team | Description | +--------+ + + + + | 09/29/ | Hospital | Diagnostic Imaging | | | | 2014 | Encounter | Services at [facility] | | | | | | [address] | | | | | | [place] | | | | | | Research [place] | | | | | | [place], [place] | | | | | | [address] | | | | | | [phone] | | | +--------+ + + + [...] Tracy | | | | | | [place], [place] | | | | | | [address] | | | | | | [phone] | | | | | | | [...]
--- OUTSIDE RECORDS SUMMARY | ~2019-10-25 | XMS | Encounter Summary ---
Demographics + + + | Address | [address] | | | [place] [address] | + + + | Home Phone [...] Author | [facility] | + + + | Organization | [facility] | + + + | Address | Unknown | + + + | Phone | Unavailable | + + + Support + + + + + | Name | Relationship | Address | Phone | + + + + + | Malina Nicole | ECON | [address] | | | | | [place] | | | | | [address] | | + + + + + | Bill Corey | ECON | Unknown | | + + + + + Care Team Providers + +------+ + | Care Pest Control Service Technician Name | Role | Phone [...] | | | | | [address] [place], | | | | | | [place] [address] | | | +--------+ + + + [...] | | 2020 | Visit | | [address] | | | | | | [place], [place] | | | | | | [address] | | | | | | [phone] | | | | | | | | +--------+---------+ + + + documented as of this encounter Visit Diagnoses Not on filedocumented in this encounter"
--- OUTSIDE RECORDS SUMMARY | ~2019-10-25 | XMS | Encounter Summary ---
Demographics + + + | Address | [address] | | | [place] [address] | + + + | Home Phone [...] [place] | | | | | [address] | | + + + + + | Sctot Mcgarry ECON | Unknown | | + + + + + Care Team Providers + +------+ + | Care Computer Mechanic Name | Role | Phone | [...] [id number] | | | | | | [facility] | | | | | | [address] [place], [place] | | | | | | [address] | | | | | | [phone] | | | +--------+ + + + [...] perfume, lotions or powder. Remove any nail sinhala from at least one fingernail. Do not [...] your procedure. Surgery Check in Locations Admitting [facility] Surgery Check in Time: Someone from your surgeon's office or [facility] will provide you with information regarding [...] it is after office hours, call the [facility] pug mill operator helper at [phone] and ask them to page your doc tor. documented in this encounter Plan of Treatment +--------+---------+ + + + | Date | Type | Specialty | Care Team | Description | +--------+---------+ + + + | 11/24/ | Office | Neurological Surgery | Nolvia Delgado, | | | 2019 | Visit | | [address] | | | | | | [place], [place] | | | | | | [address] | | | | | | [phone] | | | | | | | | +--------+---------+ + + + documented as of this encounter Visit Diagnoses Not on filedocumented in this encounter"
--- OUTSIDE RECORDS SUMMARY | ~2019-10-25 | XMS | Encounter Summary ---
Demographics + + + | Address | [address] | | | [place] [address] | + + + | Home Phone | | + + + | Preferred Language | Unknown | + + + | Marital Status | Single | + + + | Yarsani Affiliation | NRP | + + + [...] [place] | | | | | [address] | | + + + + + | Scott Nicole | ECON | Unknown | | + + + + + Care Team Providers + +------+ + | Care Staff Radiographer Name | Role | Phone | + [...] | | | Right foot | | [place], [place] | | | | | Procedures | | [address] | | | | | CONSULT TO | | Phone: | | | | | ORTHOPEDICS | | [phone] | | | | | AND | | Fax: | | | | | REHABILITATI | | [phone] | | | | | ON | [...] | | | for Health and | [place], [place] | ankle deformity | | | | Healing [address] | [address] | | | | | [address] for | [phone] | | | | | Health and Healing, | | | | | | Building | | | | | | Floor [place], [place] | | | | | | [address] | | | | | | [phone] | | | +--------+---------+ + + + [...] have seen doctors near her hometown a [facility]. I will put in a consult [...] Tracy | | | | | | [place], [place] | | | | | | [address] | | | | | | [phone] | | | | | | | [...]
--- OUTSIDE RECORDS SUMMARY | ~2019-10-25 | XMS | Encounter Summary ---
Demographics + + + | Address | [address] | | | [place] [address] | + + + | Home Phone [...] [place] | | | | | [address] | | + + + + + | Scott Mcgarry ECON | Unknown | | + + + + + Care Team Providers + +------+ + | Care Health Services Administrator Name | Role | Phone | + +------+ + | Patricia Stevens | PCP | | + +------+ + Encounter Details +--------+ + + + + | Date | Type | Department | Care Team | Description | +--------+ + + + + | 07/05/ | Document-Sc | UNKNOWN DEPARTMENT | Unknown . | | | 2016 | anned | [address] [facility] | | | | | | [address] | | | | | | [place], [place] | | | | | | [address] | | | +--------+ + + + [...] | | 2019 | Visit | | [address] | | | | | | [place], [place] | | | | | | [address] | | | | | | [phone] | | | | | | | [...]
--- OUTSIDE RECORDS SUMMARY | ~2019-10-25 | XMS | Encounter Summary ---
Demographics + + + | Address | [address] | | | [place] [address] | + + + | Home Phone [...] [place] | | | | | [address] | | + + + + + | Scott Mcgarry ECON | Unknown | | + + + + + Care Team Providers + +------+ + | Care Custom Bike Builder Name | Role | Phone | + [...] | | | | | subdural | [place], [place] | Health and | | | | | hematoma | [address] | Healing, | | | | | (HCC) | Phone: | Building 1, | | | | | Procedures | [phone] | 3rd Floor | | | | | CT HEAD WO | Fax: | [place], [place] | | | | | CONTRAST [place] | [phone] | [address] | | | | | CT | | Phone: | | | | | SCAN,HEAD/BR | | [phone] | | | | | AIN,W/O | | Fax: | | | | | CONTRAST | | [phone] | | | | | MATL | | | +--------+--------+ + + + + Encounter Details +--------+ + + + + | Date | Type | Department | Care Team | Description | +--------+ + + + + | 09/23/ | Centrifuge Separator Operator | Neurosurgery at | [place], | Acute on chronic | | 2017 | | [facility] [address] | REENA Hunter | intracranial | | | | Ave Center for | [address] | subdural hematoma | | | | Health and Healing, | [place], [place] | ([facility]) (Primary Dx) | | | | Building | [address] | | | | | floor [place], [place] | [phone] | | | | | [address] | | | | | | [phone] | | | +--------+ + + + [...] Tracy | | | | | | [place], [place] | | | | | | [address] | | | | | | [phone] | | | | | | | [...]
--- OUTSIDE RECORDS SUMMARY | ~2019-10-25 | XMS | Encounter Summary ---
Demographics + + + | Address | [address] | | | [place] [address] | + + + | Home Phone [...] [place] | | | | | [address] | | + + + + + | Scott Mcgarry ECON | Unknown | | + + + + + Care Team Providers + +------+ + | Care Loan Processor Name | Role | Phone | + [...] Closed | | Radiology | Procedures | [place], | Rad Ct Scan | | | | | CT HEAD WO | Carlos Humphries MD | [facility] [address] | | | | | CONTRAST | [address] | | | | | | [address] | [address]dee Escalante [facility] | | | | | | Rd | [facility], | | | | | | [place], [place] | 10th Floor | | | | | | [address] | [place], [place] | | | | | | Phone: | [address] | | | | | | [phone] | Phone: | | | | | | Fax: | [phone] | | | | | | [phone] | Fax: | | | | | | | [phone] | +--------+--------+ + + + + Diagnostic [...] Floor | | | | | | [address] | [place], [place] | | | | | | Phone: | [address] | | | | | | [phone] | Phone: | | | | | | Fax: | [phone] | | | | | | [phone] | Fax: | | | | | | | [phone] | +--------+--------+ + + + + Reason [...] + + | 03/20/ | Hospital | [facility] [address] | Nolvia Delgado, | | | 2012 - | Encounter | [address] | [address] | | | | | [id number] [facility] | [place], [place] | | | 03/24/ | | [facility], | [address] | | | 2012 | | [place] [address] | [phone] | | | | | [phone] | | | +--------+ + + + [...] over the last several years, admitted to [facility] electively on 03/20/2012 for the proc [...] Discharge Stable Follow Up Follow up at [facility] Spine Clinic, [place] [facility], 8th Floor, [address] [place], [place] [address] with Dr. Delgado on 04/15/12 at 09:00am. Future Appointments Date & Time Provider Department Dept Phone Center 04/15/2012 9:00 AM Nolvia Delgado MD Neurosurgery [phone] Neurosurgery Warning Symptoms and Signs Please call the Neurosurgery clinic at [phone] with any questions Friday to Friday 8 A M - 4 PM. After hours, call [facility] at [phone] and ask to speak with the Neurosurgery resi dent blocking machine operator second if you have any of the following: [...] family assistance today 03/24/12 LIZBETH ONEAL PA-C [facility] [address]K [address] [address] [address] Pg. [phone] MEDICATIONS Current Facility-Administered Medications Medication acetaminophen (aka [...] assistance tomorr ow 03/24/12 LIZBETH ONEAL PA-C [address] [address]/[place] [address] Pg. [phone] MEDICATIONS Current Facility-Administered Medications Medication acetaminophen (aka [...] with the primary team and the consultants [facility] ed. Rocky Salazar MD horr all, REENA Hamilton - 03/22/2012 12:44 PM PST [facility] Neuroscience ICU Progress Note Team Pager: [phone] Attendin Patient name: Rin Casas Author: REENA [...] Salazar, attending physician, who agrees with the [facility] assessment and plan. REENA BASS [facility] DEPARTMENT: [id number] ICU NEURO Place of Service:- Inpatient Date of Service: 03/22/2012 CSN: [id number] Suggested Modifier: None Suggested CPT: TO ANALYTICAL DATA SCIENTIST Estela Gaffney MD - 03/22/2012 5:22 AM [...] Estela Mauricio MS, MD Neurological Surgery, PGY-4 97 Sujata Lakhani MD - 03/21/2012 9:48 PM PST NSICU Neuroscience ICU Attending Clinical Information Systems Director Note Rin Casas is a 41 y.o. female admitted 03/20/2012 5:22 AM.I have seen and evaluated Ca chary Casas with LEAD INVESTIGATOR Leslie Lester, and reviewed the chart, lab [...] management of this patient. SUJATA SABA MD [facility] DEPARTMENT: [id number] ICU NEURO Place of Service:- Inpatient Date of Service: 03/21/2012 CSN: [id number] Suggested Modifier: GC - Resident Involved Suggested CPT: TO CODER P M Rocky Perez MD - 03/21/2012 9:22 AM PST 7NSICU ATTENDING SURVEILLANCE OPERATOR DAILY PROGRESS NOTE Team Pager: [phone] Attendin Date:03/21/2012 Critical Care Attending Physician: ROCKY SALAZAR MD Referring Attending [place]andel parks: Nolvia Delgado MD I saw and evaluated the patient at the bedside together with Justino Tong (LEAD INVESTIGATOR). Please see her note for details of [...] management of this patient. Rocky Salazar MD [facility] DEPARTMENT: [id number] ICU NEURO Place of Service:- Inpatient Date of Service: 03/21/2012 CSN: [id number] Suggested Modifier: None Suggested CPT: TO ANALYTICAL DATA SCIENTIST RELEVANT DATA: Last Vitals: BP 128/81 | [...] -- -- EOSPERC -- -- Caesar Mosqueda LEAD INVESTIGATOR - 03/21/2012 6:01 AM PST 7NSICU Neuroscience ICU Progress Note Team Pager: [phone] Attendin Attending Clinical Information Systems Director: Primary Service Attending: MD Nolvia Manning MD [...] Date 03/20/12699 - 03/21/1265803/21/12699 - 03/22/12658 Shift 3737-0015 0825-5348 3642-5260 Daily Total 8230-9886 4585-7144 2086-8009 Daily Total I N T A K E [address]O. [address] 240 580 I.V. 2019 920 692.4 3632.4 Shift Total 2019 1260 932.4 4212.4 O U T P U T Urine 325 253 138 6300 Urine 325 425 408 3519 Emesis 200 200 Emesis 200 200 Emesis 2 2 Drains 3 5 20 28 CSF Output (CSF Catheter Left;Frontal) 3 5 20 28 Other 5 5 Menstruation 1 1 EBL 5 5 Shift Total 333 473 944 0514 NET 1687 705 337.4 2729.4 Chemistries: Last [...] nervous system failure at t his time. [facility] DEPARTMENT: [id number] ICU NEURO Place of Service:- Inpatient Date of Service: 03/21/2012 CSN: [id number] Suggested Modifier: None Suggested CPT: TO ANALYTICAL DATA SCIENTIST This patient has been staffed with Dr. [...] - 03/20/2012 4:59 PM PST 7NSICU ATTENDING SURVEILLANCE OPERATOR DAILY PROGRESS NOTE Team Pager: [phone] Attendin Date:03/20/2012 Critical Care Attending Physician: ROCKY SALAZAR MD Referring Attending P sician: Nolvia Delgado MD I saw and evaluated the patient at the bedside together with Justino Tong (LEAD INVESTIGATOR). Please see her note for details of [...] of this patient . Rocky Salazar MD [facility] DEPARTMENT: [id number] ICU NEURO Place of Service:- Inpatient Date of Service: 03/20/2012 CSN: [id number] Suggested Modifier: None Suggested CPT: TO ANALYTICAL DATA SCIENTIST RELEVANT DATA: Last Vitals: BP 113/66 | [...] -- MONOPERC -- BASOPERC -- EOSPERC -- [facility] MD - 03/20/2012 11:55 AM [facility] POST OPERATIVE CHECK Author: PIA KELLY [...] FINDINGS: A&O to name, and hospital in [place]; believes it's 2011 (month unknown) Following commands, [...] Tracy | | | | | | [place], [place] | | | | | | [address] | | | | | | [phone] | | | | | | | [...] Nolvia Delgado M.D. | | | | Salon Manager(s): Carlos Baron M.D. | | | | [...] | | [place] / HS | | [id number] / [id number] / [id number] / | | | | | + [...] | + + + + + | [facility] | [address] | [place] [address] | | | SERVICES, CORE | HAYDEE [...] | + + + + + | [facility] | [address] | [place] [address] | | | SERVICES, CORE | HAYDEE [...] [facility] | [address] | [place] [address] | | | SERVICES, CORE | HAYDEE [...] [facility] | [address] | [place] [address] | | | SERVICES, CORE | HAYDEE [...] [facility] | [address] | [place] [address] | | | SERVICES, CORE | PARK [...] | + + + + + | [facility] | [address] | [place] [address] | | | SERVICES, RYNE | HAYDEE [...] fluid restriction: >850 mOm/kg H20 | RYNE ARAIS | + + + + + + + + | Performing | Address | City/State/Zipcode | Phone Number | | Organization | | | | + + + + + | [facility] | [address] | [place] [address] | | | RYNE ARIAS | HAYDEE [...] + + | [facility] | [address] [facility] | [place] [address] | | | SERVICES, CORE | PARK [...] | + + + + + | [facility] | [address] | [place] [address] | | | SERVICES, CORE | PARK [...] | + + + + + | [facility] | [address] | [place] [address] | | | SERVICES, CORE | HAYDEE [...] + + + | [facility] | [address] | [place], [place] | | | BOB POINT OF CARE | [address] | [address] | | | TESTS | | | [...] [facility] | [address] | [place], [place] | | | BOB POINT OF CARE | [address] | [address] | | | TESTS | | | [...] [facility] | [address] | [place], [place] | | | [facility] | [address] | [address] | | | TESTS | | | [...] | + + + + + | [facility] | [address] | [place] [address] | | | SERVICES, CORE | PARK [...] | + + + + + | [facility] | [address] | [place] [address] | | | SERVICES, RYNE | HAYDEE [...] [facility] | [address] | [place] [address] | | | SERVICES, CORE | [address] | | | + + + + + OPERATION RECORD (03/21/2012 1:59 PM PST) + + | Transcriptions | + + | Carlos Baron MD - 03/20/2012 11:00 PM PST | | Date: 03/20/2012 | | | | Attending Surgeon: Nolvia Delgado M.D. | | | | Salon Manager(s): Carlos Baron M.D. | | | | [...] head was placed in a | | [place] 3-pin headholder, and all pressure points were [...] The patient | | was removed from [place] 3-pin headholder and extubated in the operating | | room. | | | | Counts: | | All sponge and needle counts were correct at the end of the case. | | | | | | Carlos Baron M.D. | | | | | | Nolvia Delgado M.D. | | | | DARNELL / WILMAR | | [id number] / [id number] / [id number] / | | | | | + [...] [facility]ALE | [address] | [place], [place] | | | [facility] | [facility] | [address] | | | TESTS | | | [...] [facility] | [address] | [place] [address] | | | SERVICES, RYNE | HAYDEE [...] [facility] | [address] | [place] [address] | | | SERVICES, CORE | PARK [...] | + + + + + | [facility] | [address] | [place] [address] | | | SERVICES, CORE | HAYDEE [...] | + + + + + | [facility] | [address] | [place] [address] | | | SERVICES, CORE | HAYDEE [...] [facility] | [address] | [place] [address] | | | SERVICES, CORE | PARK [...] [facility] | [address] | [place] [address] | | | SERVICES, RYNE | HAYDEE [...] | mL/hr | | | ANCEF) IV (ADD-Gowrie) 2 g 2 g, | | 13 [...]
--- OUTSIDE RECORDS SUMMARY | ~2019-10-25 | XMS | Encounter Summary ---
Demographics + + + | Address | [address] | | | [place] [address] | + + + | Home Phone [...] [place] | | | | | [address] | | + + + + + | Scott Mcgarry ECON | Unknown | | + + + + + Care Team Providers + +------+ + | Care Credit Collection Associate Name | Role | Phone | + [...] | | | [facility] [place], [place] | | | | | [facility], | [address] | | | | | [facility] | [phone] | | | | | floor [place], [place] | | | | | | [address] | | | | | | [phone] | | | +--------+ + + + [...] Tracy | | | | | | [place], [place] | | | | | | [address] | | | | | | [phone] | | | | | | | | +--------+---------+ + + + documented as of this encounter Visit Diagnoses Not on filedocumented in this encounter"
--- OUTSIDE RECORDS SUMMARY | ~2019-10-25 | XMS | Encounter Summary ---
Demographics + + + | Address | [address] | | | [place] [address] | + + + | Home Phone [...] [place] | | | | | [address] | | + + + + + | Scott Nicole | ECON | Unknown | | + + + + + Care Team Providers + +------+ + | Care Business Analyst Consultant Name | Role | Phone | [...] Manzanares | | | | | | janna ([facility]) | Jaida Escalante | | | | | | Procedures | [place], [place] | | | | | | [place] | [address] | | | | | | CONTRAST | Phone: | | | | | | | [phone] | | | | | | | Fax: | | | | | | | [phone] | | +--------+--------+ + + + + Reason for Visit + + + | Reason | Comments | + + + | Follow-up visit | | + + + Office Visit - E/M Services (Routine) +--------+--------+ + + + + | Status | Reason | Specialty | Diagnoses / | Referred By | Referred To | | | | | Procedures | Contact | Contact | +--------+--------+ + + + + | Closed | | Neurological | Diagnoses | Wiley, | Danny, | | | | Surgery | Obstructive | Ada Apple, | Talya Liang MD | | | | | | ,PhD [address] | [address] | | | | | hydrocephalu | [address] | [address] | | | | | s (HCC) | [facility] | [place], [place] | | | | | Procedures | Rd | [address] | | | | | [place] EST | [place], [place] | Phone: | | | | | PATIENT | [address] | [phone] | | | | | LEVEL V [place] | Phone: | Fax: | | | | | REPROGRAMMIN | [phone] | [phone] | | | | | G,PROGRAMMAB | Fax: | | | | | | LE CSF SHUNT | [phone] | | +--------+--------+ + + + + Encounter Details +--------+---------+ + + + | Date | Type | Department | Care Team | Description | +--------+---------+ + + + | 05/29/ | Office | Neurosurgery at | Talya Delgado, | Obstructive | | 2018 | Visit | [facility] [address] | MD [address] | hydrocephalus | | | | Ave [place] for | [place], [place] | (Primary Dx) | | | | Health and Healing, | [address] | | | | | Building | [phone] | | | | | floor [place], [place] | | | | | | [address] | | | | | | [phone] | | | +--------+---------+ + + + [...] + + + | Blood Pressure | 102/76 | 05/29/2017 1:13 PM | | | | | PDT | | + + + + + | Pulse | - | - | | + + + + + | Temperature | 35.8 C (96.4 F) | 05/29/2017 1:13 PM | | | | | PDT [...] + + + + | Weight | 93.9 kg (207 lb) | 05/29/2017 1:13 PM | | | | | PDT | | + + + + + | Height | - | - | | + + + + + | Body Mass Index | 32.42 | 09/20/2016 2:44 PM | | | | | PDT | | + + + + + documented in this encounter Progress Notes Talya Delgado MD - 05/29/2017 1:30 PM PDTI performed a history and physical examination of the patient and discussed her management with the resident. I reviewed the resident s note and agree with the documented findings and plan of care. MD TALYA Sanz MD NEUROSURGERY AT [facility] [address] Mailcode: [address] [place] [address] Nata Golden MD - 05/29/2017 1:30 PM PDTNEUROSURGERY CLINIC FOLLOW UP NOTE Attending Physician:Talya Delgado MD Reason for Visit: folow up for shunt check Interval Update: 46 y.o. female with history of acqueductal stenosis, s/p ETV x 3, BINDER SELECTOR shunt , subdural hematoma drainage due to overshunting. She underwent bilateral aime holes on 09/20. She is seen for a 3 month check up for a shunt check. She was recently in the ED for a knee injury on Apr 09 and obtained a head CT. She is here to review that and check on her shunt status. Family and nurse reports that she has had some increasing difficulty with controlling her b owel and bladder, and also more trouble with transfers. While she does have a left knee inj ury (for which she is awaiting an orthopedics consult), she has had more trouble with transf ers even prior the knee injury. She denies any headaches. Family is also concerned because last year she stopped being able to feed herself. Vitals: Wt 93.9 kg (207 lb) | BMI 32.42 kg/(m^2) Imaging: CT head shows slight decrease in size of left sided subdural. Exam: Awake, alert, oriented x 3, Follow commands PERRL, difficulty with rightward gaze, mild decrease in upward gaze, but able to cross hori zontal Tongue midline, Face symmetric, Left knee swelling Follows simple commands x 4 Right hand contractures Incisions are well healed; scalp is noted to be very thin. Assessment and Plan: 46 y.o. female with aqueductal stenosis s/p ETV and subsequent shunt and right subdural sec ondary to overdrainage. Current Setting is at 2.5. While she is having more difficulty wit h transfers and bowel and bladder, it is unclear if this is related to her hydrocephalus, al though definitely possible. Will change shunt valve to 2. - Strata valve set to 2.0 in clinic today. - Follow up in [address] head without contrast. This patient was seen and discussed with , attending physician, who agrees with as [place]essment [place] [address] PGY-7 Neurological Surgery documented in thi s encounter Plan of Treatment +--------+---------+ + + + | Date | Type | Specialty | Care Team | Description | +--------+---------+ + + + | 11/24/ | Office | Neurological Surgery | Christiano Delgadokumar Azul, | | | 2020 | Visit | | [address] | | | | | | [place], [place] | | | | | | [address] | | | | | | [phone] | | | | | | | [...] Note | + -----+ | Service Account, [employer] Res In Interface - 08/28/2017 10:31 AM [...]
--- OUTSIDE RECORDS SUMMARY | ~2019-10-25 | XMS | Encounter Summary ---
Demographics + + + | Address | [address] | | | [place] [address] | + + + | Home Phone [...] [place] | | | | | [address] | | + + + + + | Scott Mcgarry ECON | Unknown | | + + + + + Care Team Providers + +------+ + | Care Deck Mechanic Name | Role | Phone | + +------+ + | Patricia Stevens | PCP | | + +------+ + Encounter Details +--------+ + + + + | Date | Type | Department | Care Team | Description | +--------+ + + + + | 09/14/ | Hospital | Radiology/Imaging | | | | 2013 | Encounter | Lab at [facility] [address] | | | | | [address] [facility] | | | | | | Health and Healing, | | | | | | [facility] | | | | | | Floor [place], [place] | | | | | | [address] | | | | | | [phone] | | | +--------+ + + + [...] [address] | | | | | | [place], [place] | | | | | | [address] | | | | | | [phone] | | | | | | | [...]
--- OUTSIDE RECORDS SUMMARY | ~2019-10-25 | XMS | Encounter Summary ---
Demographics + + + | Address | [address] | | | [place] [address] | + + + | Home Phone [...] [place] | | | | | [address] | | + + + + + | Scott Nicole | ECON | Unknown | | + + + + + Care Team Providers + +------+ + | Care Search Marketing Analyst Name | Role | Phone | [...] | | | | | | janna ([facility]) | Jaida Escalante | | | | | | Procedures | [place], [place] | | | | | | [place] | [address] | | | | | | CONTRAST | Phone: | | | | | | | [phone] | | | | | | | Fax: | | | | | | | [phone] | | +--------+--------+ + + + + [...] | | | | s (HCC) | [facility] | [place], [place] | | | | | Procedures | Rd | [address] | | | | | [place] EST | [place], [place] | Phone: | | | | | PATIENT | [address] | [phone] | | | | | LEVEL V [place] | Phone: | Fax: | | | | | REPROGRAMMIN | [phone] | [phone] | | | | | G,PROGRAMMAB | Fax: | | | | | | LE CSF SHUNT | [phone] | | +--------+--------+ + + + + Encounter Details +--------+---------+ + + + | Date | Type | Department | Care Team | Description | +--------+---------+ + + + | 05/29/ | Office | Neurosurgery at | Talya Delgado, | Obstructive | | 2018 | Visit | [facility] [address] | MD [address] | hydrocephalus | | | | Ave [place] for | [place], [place] | (Primary Dx) | | | | Health and Healing, | [address] | | | | | Building | [phone] | | | | | floor [place], [place] | | | | | | [address] | | | | | | [phone] | | | +--------+---------+ + + + [...] care. MD TALYA Sanz MD NEUROSURGERY AT [facility] [address] Mailcode: [address] [place] [address] Nata Golden MD - 05/29/2017 1:30 PM PDTNEUROSURGERY CLINIC FOLLOW UP NOTE Attending Physician:Talya Delgado MD Reason for Visit: folow up for shunt check Interval Update: 46 y.o. female with history of acqueductal stenosis, s/p ETV x 3, JIG GRINDER shunt , subdural hematoma drainage due to [...] sessment [place] [address] PGY-7 Neurological Surgery documented in thi s encounter Plan of Treatment +--------+---------+ + + + | Date | Type | Specialty | Care Team | Description | +--------+---------+ + + + | 11/24/ | Office | Neurological Surgery | Christiano Delgadokumar Azul, | | | 2020 | Visit | | [address] | | | | | | [place], [place] | | | | | | [address] | | | | | | [phone] | | | | | | | [...] Note | + -----+ | Service Account, [employer] Res In Interface - 08/28/2017 10:31 AM [...]
--- OUTSIDE RECORDS SUMMARY | ~2019-10-25 | XMS | Encounter Summary ---
Demographics + + + | Address | [address] | | | [place] [address] | + + + | Home Phone [...] [place] | | | | | [address] | | + + + + + | Scott Mcgarry ECON | Unknown | | + + + + + Care Team Providers + +------+ + | Care Bookkeeping Machine Operator Name | Role | Phone [...] | | | | | s | [place], [place] | [place], [place] | | | | | Procedures | [address] | [address] | | | | | REQUEST TO | Phone: | Phone: | | | | | SURGERY | [phone] | [phone] | | | | | SCRAPPER | Fax: | Fax: | | | | | [facility] CREATE | [phone] | [phone] | | | | | SHUNT:VENTRI | [...] | | | Ave Center for | [place], [place] | | | | | Health and Healing, | [address] | | | | | [facility] | [phone] | | | | | floor [place], [place] | | | | | | [address] | | | | | | [phone] | | | +--------+---------+ + + + [...] that we are forced to use the PEDIATRIC SPORTS MEDICINE SPECIALIST shunt option. I would like to perform a right frontal PEDIATRIC SPORTS MEDICINE SPECIALIST shunt using programmable valve set to higher [...] | | 2019 | Visit | | [address] | | | | | | [place], [place] | | | | | | [address] | | | | | | [phone] | | | | | | | | +--------+---------+ + + + documented as of this encounter Visit Diagnoses + + | Diagnosis | + + | Hydrocephalus (HCC) - Primary Obstructive hydrocephalus | + + documented in this encounter
--- OUTSIDE RECORDS SUMMARY | ~2019-10-25 | XMS | Encounter Summary ---
Demographics + + + | Address | [address] | | | [place] [address] | + + + | Home Phone [...] [place] | | | | | [address] | | + + + + + | Scott Mcgarry ECON | Unknown | | + + + + + Care Team Providers + +------+ + | Care Manager Intel Name | Role | Phone | + [...] Possible Shunt | | 2016 | | [facility] | [address] | [place] | | | | and Healing [address] | [place], [place] | | | | | [facility] | [address] | | | | | Health and Healing, | [phone] | | | | | [place] [address] [facility] | | | | | | Floor [place], [place] | | | | | | [address] | | | | | | [phone] | | | +--------+ + + + [...] Tracy | | | | | | [place], [place] | | | | | | [address] | | | | | | [phone] | | | | | | | | +--------+---------+ + + + documented as of this encounter Visit Diagnoses Not on filedocumented in this encounter"
--- OUTSIDE RECORDS SUMMARY | ~2019-10-25 | XMS | Encounter Summary ---
Demographics + + + | Address | [address] | | | [place] [address] | + + + | Home Phone [...] [place] | | | | | [address] | | + + + + + | Scott Mcgarry ECON | Unknown | | + + + + + Care Team Providers + +------+ + | Care C.O.D. Clerk Name | Role | Phone | [...] [place] | | | | | Boris [facility] | [address] | | | | | Hospital Admitting | [place], [place] | | | | | Desk Located on the | [address] | | | | | 9th floor | [phone] | | | | | [place], [place] | | | | | | [address] | | | +--------+ + + + + Anesthesia Record + + + + + | Procedure Name | Responsible | Anesthesia Start | Anesthesia Stop Time | | | Anesthesiologist | Time | | + + + + + | BILATERAL ALICE HOLES | Cameron Almazan MD | 09/20/16 1513 | 09/20/16 3631 | | FOR DRAINAGE OF | | [...] [address] | | | | | | [place], [place] | | | | | | [address] | | | | | | [phone] | | | | | | | [...]
--- OUTSIDE RECORDS SUMMARY | ~2019-10-25 | XMS | Encounter Summary ---
Demographics + + + | Address | [address] | | | [place] [address] | + + + | Home Phone [...] [place] | | | | | [address] | | + + + + + | Scott Nicole | ECON | Unknown | | + + + + + Care Team Providers + +------+ + | Care Behavioral Health Therapist Name | Role | Phone | [...] | | unspecified | [address] | [place], [place] | | | | | Presence of | [place], [place] | [address] | | | | | | [address] | Phone: | | | | | programmable | Phone: | [phone] | | | | | | [phone] | Fax: | | | | | ventriculope | Fax: | [phone] | | | | | ritoneal | [phone] | | | | | | shunt | | | | | | | Procedures | | | | | | | POSTOP VISIT | | | | | | | HI | | | | | | | REPLACEMENT/ | | | | | | | REVISION,CSF | | | | | | | SHUNT HI | | | | | | | REPLACE/IRRI | | | | | | | GATE VENTRIC | | | | | | | CATH HI | | | | | | | REMOVE & | | | | | | | REPLACE CSF | | | | | | | SHUNT HI | | | | | | | [...] | unspecified type | | | | [facility] for | [facility] [address] | ([facility]) (Primary Dx) | | | | Health and Healing, | [place], [place] | | | | | Building | [address] | | | | | floor [place], [place] | [phone] | | | | | [address] | | | | | | [phone] | | | +--------+---------+ + + + [...] as of this encounter Progress Notes Cornelius Coello PA-C - 05/06/2019 10:00 AM PST POST [...] at this time. Social: Patient lives in [place], [place]. Patient has No occupation listed. 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 [...] expressed understanding and agreement w [facility] plan. Cornelius Coello PA-C [facility] [address] [place] [address] [address] [facility] [address] Mailcode: [place] [address] Pg. [id number] documented in this enc ounter Plan of Treatment +--------+---------+ + + + | Date | Type | Specialty | Care Team | Description | +--------+---------+ + + + | 11/24/ | Office | Neurological Surgery | DannyNolvia, | | | 2019 | Visit | | [address] | | | | | | [place], [place] | | | | | | [address] | | | | | | [phone] | | | | | | | | +--------+---------+ + + + documented as of this encounter Visit Diagnoses + + | Diagnosis | + + | Hydrocephalus, unspecified type (HCC) - Primary | + + documented in this encounter
--- OUTSIDE RECORDS SUMMARY | ~2019-10-25 | XMS | Encounter Summary ---
Demographics + + + | Address | [address] | | | [place] [address] | + + + | Home Phone [...] [place] | | | | | [address] | | + + + + + | Scott Mcgarry ECON | Unknown | | + + + + + Care Team Providers + +------+ + | Care Pan Greaser Name | Role | Phone | + [...] | | Hydrocephalu | [address] | [facility] | | | | | s (HCC) | [facility] | [address] [facility] | | | | | Procedures | [facility] | Hospital, | | | | | CT HEAD WO | Rd | 10th Floor | | | | | CONTRAST FL | [place], [place] | [place], [place] | | | | | CT | [address] | [address] | | | | | SCAN,HEAD/BR | | Phone: | | | | | AIN,W/O | | [phone] | | | | | CONTRAST | | Fax: | | | | | MATL | | [phone] | +--------+--------+ + + + + Encounter Details +--------+ + + + + | Date | Type | Department | Care Team | Description | +--------+ + + + + | 07/03/ | Insert Cutter | Neurosurgery at | Jeannine Hebert | Hydrocephalus | | 2017 | | [place] for [facility] | [facility]N | (Primary Dx) | | | | and Healing [address] | | | | | [address] [facility] for | | | | | | Health and Healing, | | | | | | Building | | | | | | Floor [place], [place] | | | | | | [address] | | | | | | [phone] | | | +--------+ + + + [...] | | 2019 | Visit | | [address] | | | | | | [place], [place] | | | | | | [address] | | | | | | [phone] | | | | | | | [...]
--- OUTSIDE RECORDS SUMMARY | ~2019-10-25 | XMS | Encounter Summary ---
Demographics + + + | Address | [address] | | | [place] [address] | + + + | Home Phone [...] [place] | | | | | [address] | | + + + + + | Scott Mcgarry ECON | Unknown | | + + + + + Care Team Providers + +------+ + | Care Fiberglass Finisher Name | Role | Phone | [...] | | | | Acute on | [place], [place] | Health and | | | | | chronic | [address] | Healing, | | | | | intracranial | Phone: | Building 1, | | | | | subdural | [phone] | 3rd Floor | | | | | hematoma | Fax: | [place], [place] | | | | | (HCC) | [phone] | [address] | | | | | Procedures | | Phone: | | | | | CT HEAD WO | | [phone] | | | | | CONTRAST [place] | | Fax: | | | | | CT | | [phone] | | | | | SCAN,HEAD/BR | [...] | | | | Acute on | [place], [place] | | | | | | chronic | [address] | | | | | | intracranial | Phone: | | | | | | subdural | [phone] | | | | | | hematoma | Fax: | | | | | | (HCC) | [phone] | | | | | | Seizure [...] | | | Health and Healing, | [facility] [place] | intracranial | | | | | [address] | subdural hematoma | | | | floor [place], [place] | [phone] | ([facility]); Seizure | | | | [address] | | disorder (HCC) | | | | [phone] | | | +--------+---------+ + + + [...] this plan. Kristen Chang PA-C NEUROSURGERY AT [facility] [address] Mailcode: [place] [address] documented in t his encounter Plan of Treatment +--------+---------+ + + + | Date | Type | Specialty | Care Team | Description | +--------+---------+ + + + | 11/24/ | Office | Neurological Surgery | Nolvia Delgado, | | | 2019 | Visit | | [address] | | | | | | [place], [place] | | | | | | [address] | | | | | | [phone] | | | | | | | [...] space, | | | this is likely guest service representative of small clots. Soft tissues: | [...] Note | + + | Service Account, [employer] Res In Interface - 12/26/2016 5:10 PM [...] in the subdural space, this is likely guest service representative of small | | clots.Soft tissues: [...]
--- OUTSIDE RECORDS SUMMARY | ~2019-10-25 | XMS | Encounter Summary ---
Demographics + + + | Address | [address] | | | [place] [address] | + + + | Home Phone [...] [place] | | | | | [address] | | + + + + + | Scott Mcgarry ECON | Unknown | | + + + + + Care Team Providers + +------+ + | Care Computer Applications Instructor Name | Role | Phone | [...] Congenital | Kristen E, | [address] | | | | | hydrocephalu | [place] [address] | [address] | | | | | s (HCC) | [address] | [address] [place] | | | | | Procedures | [place], [place] | Research | | | | | MRI [place] | [address] | Center | | | | | CONTRAST | Phone: | [place], [place] | | | | | | [phone] | [address] | | | | | | Fax: | Phone: | | | | | | [phone] | [phone] | | | | | | | Fax: | | | | | | | [phone] | +--------+--------+ + + + + Encounter [...] | | | | | | Floor [place], [place] | | | | | | [address] | | | | | | [phone] | | | +--------+ + + + [...] [place] | | | | | | [address] | | | | | | [phone] | | | | | | | | +--------+---------+ + + + documented as of this encounter Visit Diagnoses + + | Diagnosis | + + | Congenital hydrocephalus (HCC) Congenital hydrocephalus | + + documented in this encounter"
--- OUTSIDE RECORDS SUMMARY | ~2019-10-25 | XMS | Encounter Summary ---
Demographics + + + | Address | [address] | | | [place] [address] | + + + | Home Phone [...] [place] | | | | | [address] | | + + + + + | Scott Mcgarry ECON | Unknown | | + + + + + Care Team Providers + +------+ + | Care Java Technical Architect Name | Role | Phone | + [...] | | | | | | Boris [facility] | | | | | | Hospital Admitting | | | | | | Desk Located on the | | | | | | 9th floor | | | | | | [place], [place] | | | | | | [address] | | | +--------+ + + + [...] [address] | | | | | | [place], [place] | | | | | | [address] | | | | | | [phone] | | | | | | | [...]
--- OUTSIDE RECORDS SUMMARY | ~2019-10-25 | XMS | Encounter Summary ---
Demographics + + + | Address | [address] | | | [place] [address] | + + + | Home Phone [...] [place] | | | | | [address] | | + + + + + | Scott Mcgarry ECON | Unknown | | + + + + + Care Team Providers + +------+ + | Care Detective Private Eye Name | Role | Phone | + [...] | | Procedures | [address] | [place], [place] | | | | | REQUEST TO | [place], [place] | [address] | | | | | SURGERY | [address] | Phone: | | | | | DATABASE CONSULTANT | | [phone] | | | | | [place] | | Fax: | | | | | [facility]EN[facility] | | [phone] | | | | | ISTERNOSTOMY | [...] ventriculomegaly | | | | Physician's | [place], [place] | (Primary Dx) | | | | Andressa, 2nd floor | [address] | | | | | [facility] [place] | [phone] | | | | | [address] | | | | | | [phone] | | | +--------+---------+ + + + [...] [address] | | | | | | [place], [place] | | | | | | [address] | | | | | | [phone] | | | | | | | | +--------+---------+ + + + documented as of this encounter Visit Diagnoses + + | Diagnosis | + + | Cerebral ventriculomegaly - Primary Other conditions of brain | + + documented in this encounter"
--- OUTSIDE RECORDS SUMMARY | ~2019-10-25 | XMS | Encounter Summary ---
Demographics + + + | Address | [address] | | | [place] [address] | + + + | Home Phone [...] [place] | | | | | [address] | | + + + + + | Scott Mcgarry ECON | Unknown | | + + + + + Care Team Providers + +------+ + | Care Operator Command Support Systems Name | Role | Phone | + [...] | | | Health and Healing, | [place], [place] | | | | | [facility] | [address] | | | | | floor [place], [place] | [phone] | | | | | [address] | | | | | | [phone] | | | +--------+---------+ + + + [...] this plan. Kristen Chang PA-C NEUROSURGERY AT [facility] [address] Mailcode: [place] [address] documented in t his encounter Plan of Treatment +--------+---------+ + + + | Date | Type | Specialty | Care Team | Description | +--------+---------+ + + + | 11/24/ | Office | Neurological Surgery | Nolvia Delgado, | | | 2019 | Visit | | [address] | | | | | | [place], [place] | | | | | | [address] | | | | | | [phone] | | | | | | | | +--------+---------+ + + + documented as of this encounter Visit Diagnoses + + | Diagnosis | + + | SDH (subdural hematoma) (HCC) - Primary Subdural hemorrhage | + + documented in this encounter"
--- OUTSIDE RECORDS SUMMARY | ~2019-10-25 | XMS | Encounter Summary ---
Demographics + + + | Address | [address] | | | [place] [address] | + + + | Home Phone [...] [place] | | | | | [address] | | + + + + + | Scott Nicole | ECON | Unknown | | + + + + + Care Team Providers + +------+ + | Care Infant And Toddler Teacher Name | Role | Phone | + +------+ + | Gabe aBird DO | PCP | | + +------+ [...] | | | | | | Loop [place], [place] | | | | | | [address] | | | | | | [phone] | | | +--------+ + + + [...] [address] | | | | | | [place], [place] | | | | | | [address] | | | | | | [phone] | | | | | | | | +--------+---------+ + + + documented as of this encounter Visit Diagnoses Not on filedocumented in this encounter"
--- OUTSIDE RECORDS SUMMARY | ~2019-10-25 | XMS | Encounter Summary ---
Demographics + + + | Address | [address] | | | [place] [address] | + + + | Home Phone [...] [place] | | | | | [address] | | + + + + + | Scott Nicole | ECON | Unknown | | + + + + + Care Team Providers + +------+ + | Care Mathematics Academic Chair Name | Role | Phone | + +------+ + | Patricia Stevens | PCP | | + +------+ + Reason for Visit + + + | Reason | Comments | + + + | Weakness | | + + + | Other | BRA[address] FREIGHT Shunt issue | + + + Encounter Details +--------+ + + + + | Date | Type | Department | Care Team | Description | +--------+ + + + + | 07/29/ | Emergency | [facility] Emergency | | | | 2016 | | Department [address] | | | | | | [facility] | | | | | | [facility] | | | | | | [place], [place] | | | | | | [address] | | | | | | [phone] | | | +--------+ + + + [...] Tracy | | | | | | [place], [place] | | | | | | [address] | | | | | | [phone] | | | | | | | | +--------+---------+ + + + documented as of this encounter Visit Diagnoses Not on filedocumented in this encounter"
--- OUTSIDE RECORDS SUMMARY | ~2019-10-25 | XMS | Encounter Summary ---
Demographics + + + | Address | [address] | | | [place] [address] | + + + | Home Phone [...] [place] | | | | | [address] | | + + + + + | Scott Nicole | ECON | Unknown | | + + + + + Care Team Providers + +------+ + | Care Surgical Supplies Sterilizer Name | Role | Phone | + [...] | | | | | THERAPY | [place], [place] | | | | | | REFERRAL | [address] | | | | | | | Phone: | | | | | | | [phone] | | | | | | | Fax: | | | | | | | [phone] | | +--------+--------+ + + + + [...] | | | | | THERAPY | [place], [place] | | | | | | REFERRAL | [address] | | | | | | | Phone: | | | | | | | [phone] | | | | | | | Fax: | | | | | | | [phone] | | +--------+--------+ + + + + [...] [address] | | | | | [place], [place] | [address] [place], | | | 08/29/ | | [address] | [place] [address] | | | 2019 | | [phone] | [phone] | | | | | | | | | | | | Juliana Arias, | | | | | | [address] | | | | | | [address] | | | | | | [place], [place] | | | | | | [address] | | | | | | [phone] | | | | | | | | | | | | Perri Butterfield MD | | | | | | [address] | | | | | | [facility], | | | | | | [place] [address] | | | | | | [phone] | | | | | | | | | | | | Bernard King, | | | | | | Daniel Baltazar MD,[facility] [address] | | | | | | [address] | | | | | | Rd [place], [place] | | | | | | [address] | | | | | | [phone] | | | | | | | [...] ifferent from the original. 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 Hospital Course by Problem (with follow-up plan/instructions): #UTI, uncomplicated, due to E coli #Weakness, acute #Leukocytosis Patient was brought to [facility] by her parents for acute worsening of chronic weakness with rel ated decline in mobility (at baseline, can stand to pivot to wheelchair with assist, and goe s on frequent outings with parents and caregiver). There was initial concern for possible INFORMATION LEAD S malfunction or infection but evaluation by [...] None Other Studies: EKG 03/2017: NSR, nl NE, QTc 440, LVH Discharge Medications: Medication List [...] BERTRAND Specialty: Internal Medicine Contact information [facility] Internal Medicin [address] [facility] [id number] Contact information for after-discharge [facility] . Service: Home Health Services Contact information [address] [place], [facility] [address] [facility] [address] Condition at Discharge: Good Discharge Destination: Home with HHRN/PT/OT Outstanding Studies Requiring Follow-Up: None Recommendations for Follow-Up: Follow up with PCP within 1-2 weeks Code Status: Do Not Resuscitate/Do Not Intubate POLST Completed: no Daniel King MD, MPH Credit And Collections Representativegum mixer Clinical Hospitalist Service [facility] [place] I spent 43 minutes in coordination of [...] evidence of cholecystitis. EKG 03/2017: NSR, nl NE, QTc 440, LVH Current Medications: acetaminophen (TYLENOL) [...] oral, BID Assessment and Plan Henrique Casas ([id number]) is a 48 y.o. 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 INFORMATION LEAD shunt series completed on presentation, NSG who [...] prior to dc. Daniel King MD MPH Credit And Collections Representative Clinical Hospitalist Service Department of Medicine [facility] Pager [phone] I spent 40 minutes in the care [...] formerly able to transfer from bed to [facility], go to park in chair, etc but now prefers to stay in bed x pas week. Has had syncope in [facility] of unclear etiology, last a few years [...] effusion, clear lungs EKG 03/2017: NSR, nl NE, QTc 440, LVH Current Medications: No current [...] 2 days). Assessment and Plan Henrique Casas ([id number]) is a 48 y.o. 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 Daniel King MD MPH Credit And Collections Representative Clinical Hospitalist Service Department of Medicine [facility] Pager [phone] documente d in this encounter Plan of Treatment +--------+---------+ + + + | Date | Type | Specialty | Care Team | Description | +--------+---------+ + + + | 11/24/ | Office | Neurological Surgery | MickyNolvia benavides, | | | 2019 | Visit | | [address] | | | | | | [place], [place] | | | | | | [address] | | | | | | [phone] | | | | | | | [...] | | | LABORATORY | | | [place] CITIZEN | | | SERVICES, | | | [...] MDRD equation recommended by the National | [facility] | | Kidney Disease Education Program. Estimated [...] + + + | [facility] | [address] | [place] [address] | | | SERVICES, CORE | PARK [...] DEPT OF | [address] | [place], [place] | | | CARDIOLOGY | [address] | [address] | | + + + + + [...] | | | LABORATORY | | | [place] CITIZEN | | | SERVICES, | | | [...] MDRD equation recommended by the National | [facility] | | Kidney Disease Education Program. Estimated GFR Interpretive | LABORATORY | | Information: <60 mL/min/1.73 sq m Chronic Kidney | SERVICES, [facility] | | Disease <15 mL/min/1.73 sq m [...] | + + + + + | [facility] LABORATORY | [address] | [place] [address] | | | JUANA, RYNE | HAYDEE [...] [place] LAB[facility]ATORY | [address] | [place] [address] | | | SERVICES, CORE | PARK [...] | + + + + + | [facility] LAB[facility] | [address] | [place] [address] | | | SERVICES, CORE | PARK [...] of results was communicated to the ED wrecker operator on | | | 08/27/2018 7:43 PM by Naibl Mason MD. I have personally reviewed the [...] was | | communicated to the ED wrecker operator on 08/27/2018 7:43 PM by Nabil [...] of results was communicated to the ED wrecker operator on 08/27/2018 7:43 PM by Nabil [...] Performed At | + ----+ + | [facility] | [facility] DEPT OF | | [facility] Adult Echocardiography Laboratory [address] | CARDIOLOGY | | [place], [place] [address] Ph: | | | Pt Name: HENRIQUE CASAS | | | Study Date/Time 08/27/2018 / 10:24:15 AMMRN: [id number] | | | Most recent prior:Acc #: [id number] No. | | | previous echos: 0DOB: 1970 48 years Heart Rate: | | | 79 bpmHeight: 68.0 in Blood Pressure: | | | 118/84 mm/HgWeight: 250.0 lb Gender: | | | FBSA: 2.25 m | | | Order ID: [id number] Study | | | Location: EDSonographer: Rose Tyler [facility]erring Provider: Daniel Baltazar | | | Bernard [...] stenosis causing hydrocephalus, for which she has INFORMATION LEAD shunt, cerebral | | | palsy, seizure [...] Report | | | electronically signed by: [id number] Stanton Gary MD (08/27/2018, | | | [...] | | | |Report electronically signed by: [id number] Stanton Gayr MD (08/27/2018, 12:10:12 PM) | | |Fellow(s) participating in diagnosis: Gil Mitchell; | | | | | | | | | | | | Final | | + ----+ + + + | Procedure Note | + + | Interface, Cardiology Results - 08/27/2018 12:10 PM [facility] | | [facility] Echocardiography Laboratory [address] [place] [address] | | [place], [place] [address] Pt Name: HENRIQUE OSPINA | | VAISHALI Study Date/Time 08/27/2018 / 10:24:15 AMMRN: [id number] Most | | recent prior:Acc #: [id number] No. previous echos: 0DOB: 1970 48 years | | Heart Rate: 79 bpmHeight: 68.0 in Blood Pressure: 118/84 | | mm/HgWeight: 250.0 lb Gender: FBSA: 2.25 m | | Order ID: [id number] Study Location: EDSonographer: Rose Jordanwilmersabino | | RDCSReferring Provider: Daniel Floresalities Performed: [...] stenosis causing hydrocephalus, for which she has INFORMATION LEAD shunt, cerebral palsy, | | seizure disorder, [...] and indexed values Report electronically signed by: [id number] Hind | | Cookie WOODS (08/27/2018, 12:10:12 [...] | | | |Report electronically signed by: [id number] Stanton Gary MD (08/27/2018, 12:10:12 PM) | |Fellow(s) participating in diagnosis: Gil Mitchell; | | | | | | | | Final | + + + + + + + | Performing | Address | City/State/Zipcode | Phone Number | | Organization | | | | + + + + + | [facility] | [address] | [place], [place] | | | CARDIOLOGY | [address] | [address] | | + + + + + [...] + + | ECG | Borderline prolonged NE | | [facility] | | | [...] PAGANT OF | [address] | [place], [place] | | | CARDIOLOGY | [address] | [address] | | + + + + + [...] [facility] | [address] | [place] [address] | | | SERVICES, CORE | HAYDEE [...] | | | LABORATORY | | | [place] CITIZEN | | | SERVICES, | | | [...] MDRD equation recommended by the National | [facility] | | Kidney Disease Education Program. Estimated [...] | + + + + + | [facility] LAB[facility] | [address] | [place] [address] | | | SERVICES, CORE | HAYDEE [...] DALE | [address] | [place], [place] | | | BOB POINT OF CARE | [address] | [address] | | | TESTS | | | [...] + + + | [facility] | [address] | [place] [address] | | | SERVICES, CORE | PARK [...] [facility] | [address] | [place] [address] | | | SERVICES, CORE | PARK [...] [facility] | [address] | [place] [address] | | | RYNE ARI[address] | HAYDEE [...] + | [facility] - | [address] | [place] [address] | | | [facility] | | | | + + + [...] + + + | [facility] | [address] | [place] [address] | | | SERVICES, CORE | HAYDEE [...] (AP and lateral radiographs of the | [facility] | | skull, AP and lateral radiographs [...] Albarado MD | | | Dictation initiated: Sadnra Albarado MD 08/27/2018 8:10 AM | | [...] communicated | | | to the ED wrecker operator on 08/27/2018 1:07 AM by Armando [...] Note | + + | Service Account, [employer] / [email or web address] Res In Interface - 08/27/2018 7:58 AM [...] of results was communicated to the ED wrecker operator on | | 08/27/2018 1:07 AM [...] of results was communicated to the ED wrecker operator on 08/27/2018 1:07 AM by Armando [...] Arndt MD on 08/26/2018 9:44 PM by Nbail Mason MD. | | | |I have [...] HUNTER | [address] | [place], [place] | | | ELISABET ROJAS | [facility] | [address] | | | TESTS | | | [...] | + + + + + | [employer] [facility] | [address] | [place] [address] | | | SERVICES, CORE | HAYDEE [...] [facility] | [address] | [place] [address] | | | SERVICES, CORE | PARK [...] | + + + + + | [employer] [facility] | [address] | [place] [address] | | | SERVICES, CORE | HAYDEE [...] [facility] | [address] | [place] [address] | | | SERVICES, | [address] [...] | | | LABORATORY | | | [place] CITIZEN | | | SERVICES, | | | [...] MDRD equation recommended by the National | [facility] | | Kidney Disease Education Program. Estimated [...] [facility] | [address] | [place] [address] | | | SERVICES, RYNE | HAYDEE [...] 19 2:54 | | | | | [facility] 08/27/18 at 0315 | | AM [...] | | | DAILY, First dose on [facility] 08/27/18 | | AM PDT | [...] 10:45 | | | | | dose, [facility] 08/26/18 at 2300 | | PM PDT | | | | + +-------+ +------+---+---+ +---+---+ | | | +---+---+ + +-------+ + +---+---+ | multivitamin (THERA VITAMIN) 1 | Given | 08/30/19 | 1 tablet | | | | tablet 1 tablet, oral, DAILY, | | 19 7:53 | | | | | First dose on [facility] 08/27/18 at | | AM PDT [...] | | | | | 1 dose, [facility] 08/27/18 at 1145 | | | | | | + +-------+ +--------+---+---+ +---+---+ | | | +---+---+ + +---------+ +--------+---+---+ | sodium chloride 0.9 % (NS) IV | New Bag | 08/30/19 | 500 mL | | | | infusion 500 mL, intravenous, | | 19 10:24 | | | | | ONCE, 1 dose, [facility] 08/29/18 at 1015 | | AM PDT | | | | + +---------+ +--------+---+---+ +---+---+ | | | +---+---+ documented in this encounter
--- OUTSIDE RECORDS SUMMARY | ~2019-10-25 | XMS | Encounter Summary ---
Demographics + + + | Address | [address] | | | [place] [address] | + + + | Home Phone [...] [address] | | | | | [place] | | | | | [address] | | + + + + + | Scott Mcgarry ECON | Unknown | | + + + + + Care Team Providers + +------+ + | Care Sheet Heater Helper Name | Role | Phone | [...] Ave | | | | | Ave [facility] | [place], [place] | | | | | Health and Healing, | [address] | | | | | Building [address]th | [phone] | | | | | floor [place], [place] | | | | | | [address] | | | | | | [phone] | | | +--------+ + + + [...] [address] | | | | | | [place], [place] | | | | | | [address] | | | | | | [phone] | | | | | | | | +--------+---------+ + + + documented as of this encounter Visit Diagnoses Not on filedocumented in this encounter"
--- OUTSIDE RECORDS SUMMARY | ~2019-10-25 | XMS | Encounter Summary ---
Demographics + + + | Address | [address] | | | [place] [address] | + + + | Home Phone [...] [place] | | | | | [address] | | + + + + + | Scott Nicole | ECON | Unknown | | + + + + + Care Team Providers + +------+ + | Care It Audit Manager Name | Role | Phone | + +------+ + | Patricia Bowers | PCP | | + +------+ + Encounter Details +--------+ + + + + | Date | Type | Department | Care Team | Description | +--------+ + + + + | 06/26/ | Hospital | Radiology/Imaging | | | | 2012 | Encounter | Lab at [facility] [address] | | | | | [address] [facility] for | | | | | | Health and Healing, | | | | | | [facility] 1, 3rd | | | | | | Floor [place], [place] | | | | | | [address] | | | | | | [phone] | | | +--------+ + + + [...] [address] | | | | | | [place], [place] | | | | | | [address] | | | | | | [phone] | | | | | | | [...]
--- OUTSIDE RECORDS SUMMARY | ~2019-10-25 | XMS | Encounter Summary ---
Demographics + + + | Address | [address] | | | [place] [address] | + + + | Home Phone [...] [place] | | | | | [address] | | + + + + + | Scott Mcgarry ECON | Unknown | | + + + + + Care Team Providers + +------+ + | Care Seismograph Helper Name | Role | Phone | [...] | Event | [address] | ,PhD [address] | | | | | [facility] | [address] | | | | | Hospital Admitting | [place], [place] | | | | | Desk Located on the | [address] | | | | | 9th floor | [phone] | | | | | [facility] [place] | | | | | | [address] | Hudson Ortiz CRNA | | | | | | [address] | | | | | | [place]ida Esc[place]ante [place], | | | | | | [place] [address] | | | | | | [phone] | | | | | | | [...] + | Periph | 11/08/15; 1019; Diana POWDER LOADER; Left; | 11/08/15 1019 by | 11/09/15 1030 by | | eral | Hand; 18 g; Positive; 11/09/15; | Hudson Ortiz, POWDER LOADER | Melly Van | | IV | [...] Tracy | | | | | | [place], [place] | | | | | | [address] | | | | | | [phone] | | | | | | | [...]
--- OUTSIDE RECORDS SUMMARY | ~2019-10-25 | XMS | Clinical Summary ---
Demographics + + + | Address | [address] | | | [place] [address] | + + + | Home Phone [...] [place] | | | | | [address] | | + + + + + | Bill Corey | ECON | Unknown | | + + + + + Care Team Providers + +------+ + | Care Lieutenant Ballistics Name | Role | Phone | + +------+ + | Gabe Baird DO | PCP | | + +------+ + Source Comments MIRIAM is fully live on both [facility] Ambulatory and [facility] InPatient.[facility] Allergies No Known Allergies Medications + + [...] Multiple EVD placements, now s/p R occipital DEWAXER shunt | | placement in October 2015 [...] Tracy | | | | | | [place], [place] | | | | | | [address] | | | | | | [phone] | | | | | | | [...] | 0 / | | MD at [facility] INPATIENT REV LOC | | | | | | /[id number] | | | | | | | | 7 | + +------+--------+ +--------+--------+--------+ | Catheter Bactiseal Shunt Kit | | | [place] & | | 08/14/ | [id number] | | - [id number]: Qty: 1 | | | [place] | | 2017 | 2 / | | on 11/08/2015 by Nathaniel Ybarra | | | CODMAN | | | /CVHCP | | DMD at [facility] INPATIENT REV | | | | | | D | | LOC | | | | | | | + +------+--------+ +--------+--------+--------+ | Valve Shunt Strata Ii Csf | | | [employer] | | 08/14/ | [id number] | | Small 30mm Full Port 2in - | | | SOFAMOR | | 2018 | / | | [id number]: Qty: 1 on | | | TANYA | | | /[id number] | | 11/08/2015 by Nathaniel Ybarra, | | | | | | 5 | | at [facility] INPATIENT REV LOC | | | | [...] | | | | | | | [id number]: Qty: 10 | | | | | | | | on 09/20/2016 by Ashish, | | | | | | | | Nata Wolf MD at [facility] | | | | | | | [...] | | | | | | | [id number]: Qty: 1 on | | | | | | | | 09/20/2016 by Nolvia Delgado | | | | | | | | MD Azul at [facility] INPATIENT REV | | | | | | | | LOC | | | | | | | + +------+--------+ +--------+--------+--------+ | Cover Aime Hole .5mm 12mm | | Right: | [facility] | | | [id number] | | Craniomaxillofacial Titanium | | Head | | | | 5 / / | | Low Profile Nonsterile - | | | | | | | | [id number]: Qty: 2 on | | | | | | | | 09/20/2016 by Ashish, | | | | | | | | Nata Wolf MD at [facility] | | | | | | | | INPATIENT REV LOC | | | | | | | + +------+--------+ +--------+--------+--------+ | [employer]man Cert[employer] Plus | | | CODMAN | | 09/13/ | [id number] | | Programmable ValveImplanted: | | | | | 2023 | 0PL / | | Qty: 1 on 04/23/2019 by | | | | | | /[id number] | | Nolvia Delgado MD at [facility] | | | | | | 41 | | INPATIENT REV LOC | | | | | | | + +------+--------+ +--------+--------+--------+ | Clip Internal Angled Right | | | [place] & | | 04/16/ | [id number] | | Tabs Anchoring Cranial | | | [place] | | 2023 | / | | Sterile - [id number]: | | | CODMAN | | | /[id number] | | Qty: 1 on 04/23/2019 by | | | | | | 6 | | Nolvia Delgado MD at [facility] | | | | | | | [...] of | | | right parieto-occipital approach DEWAXER shunt, unchanged in position. | | | [...] Note | + + | Service Account, [employer] Res In Interface - 10/14/2019 11:35 AM PDT EXAM: CT HEAD | | WITHOUT CONTRAST HISTORY: concern for shunt [id number] female with past medical | | history [...] Redemonstration of right | | parieto-occipital approach DEWAXER shunt, unchanged in position. Redemonstration of isodense [...] | B | | sent | | [place], [place] | | | | | | | | [address] | | + +--------+ +--------+ + +--------+ | GENERAL ASSEMBLER INSTALLER MEDICAID | GENERAL ASSEMBLER INSTALLER | xxxxxxxx | 03/17/19 | | | [...] | 1971 | [phone] | [place] [address] | | | briana | | | [...]
--- OUTSIDE RECORDS SUMMARY | ~2019-10-25 | XMS | Encounter Summary ---
Demographics + + + | Address | [address] | | | [place] [address] | + + + | Home Phone | | + + + | Preferred Language | Unknown | + + + | Marital Status | Single | + + + | Mu-Ism Affiliation | NRP | + + + [...] [place] | | | | | [address] | | + + + + + | Scott Mcgarry ECON | Unknown | | + + + + + Care Team Providers + +------+ + | Care Distribution Accounting Clerk Name | Role | Phone | [...] | | | | Procedures | [address] | | | | | | CT HEAD WO | Rd | | | | | | CONTRAST | [place], [place] | | | | | | | [address] | | +--------+--------+ + + + + [...] | | | | | CONTRAST | [place], [place] | | | | | | | [address] | | +--------+--------+ + + + + Encounter Details +--------+ + + + + | Date | Type | Department | Care Team | Description | +--------+ + + + + | 11/29/ | Hospital | Radiology/Imaging | | | | 2015 | Encounter | Lab at [facility] | | | | | [address] [facility] for | | | | | | Health and Healing, | | | | | | [address] | | | | | | [place], [place] | | | | | | [address] | | | | | | [phone] | | | +--------+ + + + [...] Tracy | | | | | | [place], [place] | | | | | | [address] | | | | | | [phone] | | | | | | | [...]
--- OUTSIDE RECORDS SUMMARY | ~2019-10-25 | XMS | Encounter Summary ---
Demographics + + + | Address | [address] | | | [place] [address] | + + + | Home Phone [...] [place] | | | | | [address] | | + + + + + | Scott Nicole | ECON | Unknown | | + + + + + Care Team Providers + +------+ + | Care Planning Official Name | Role | Phone | [...] | | | [facility] for | [place], [place] | admission 02/07/15 | | | | Health and Healing, | [address] | -02/08/15: Redo left | | | | | [phone] | endoscopic third | | | | floor [place], [place] | | ventriculostomy | | | | [address] | | (02/07/15)) | | | | [phone] | | | +--------+ + + + [...] | | | | | | [place], [place] | | | | | | [address] | | | | | | [phone] | | | | | | | | +--------+---------+ + + + documented as of this encounter Visit Diagnoses Not on filedocumented in this encounter"
--- OUTSIDE RECORDS SUMMARY | ~2019-10-25 | XMS | Encounter Summary ---
Demographics + + + | Address | [address] | | | [place] [address] | + + + | Home Phone [...] [place] | | | | | [address] | | + + + + + | Bill Corey | ECON | Unknown | | + + + + + Care Team Providers + +------+ + | Care Coating Engineer Name | Role | Phone | [...] | hydrocephalu | [address] [place] | | | | | s (HCC) | [place], [place] | Research | | | | | Procedures | [address] | Center | | | | | MRI BRAIN WO | Phone: | [place], [place] | | | | | [facility] | [phone] | [address] | | | | | [address]RD | Fax: | Phone: | | | | | [facility] | [phone] | [phone] | | | | | [facility] | | Fax: | | | | | | | [phone] | +--------+[phone]+ + + + + Reason [...] Treatment Planning | | 2013 | | [facility] | [facility] | | | | | and Healing [address] | | | | | [address] [facility] | [place], [place] | | | | | Health [facility] Healing, | [address] | | | | | Building | [phone] | | | | | Floor [place], [place] | | | | | | [address] | | | | | | [phone] | | | +--------+ + + + [...] [place] | | | | | | [place], [place] | | | | | | [address] | | | | | | [phone] | | | | | | | [...] + + | Performing | Address | City/State[facility] | Phone Number | | Organization | | | | + +---------+ + + | [facility] DEPARTMENT OF | | | | | RADIOLOGY | | | | + +---------+ + + documented in this encounter Visit Diagnoses + + | Diagnosis | + + | Obstructive hydrocephalus (HCC) - Primary Obstructive hydrocephalus | + + documented in this encounter"
[~2019-10-25 06:59] MED LIST changes: +NORCO 5-325 TA1 EACH PO
== END 2019-10-25 13:20 | disposition home or self-care (01) ==
LOC: ED 06:59
DX: N93.9 Abnormal uterine and vaginal bleeding, unspecified (principal); G80.9 Cerebral palsy, unspecified
CPT/HCPCS: 70450; 80053; 85025; 99284-25

== ENCOUNTER 2020-02-03 19:42 | Emergency (ER) | payer MEDICARE, OTHER ==
[~2020-02-03] VITALS: Ht 170.2 cm; Wt 99.8 kg
[2020-02-03] MEDS ORDERED: NYSTATIN15 GM TOP (21:53)
== END 2020-02-03 22:10 | disposition home or self-care (01) ==
LOC: ED 19:42
DX: N93.9 Abnormal uterine and vaginal bleeding, unspecified (principal); L30.8 Other specified dermatitis; Z79.899 Other long term (current) drug therapy
CPT/HCPCS: 51701; 81001; 99284

== ENCOUNTER 2021-05-20 06:21 | Emergency (ER) | payer MEDICARE, OTHER ==
[~2021-05-20] VITALS: Ht 170.2 cm; Wt 90.9 kg
[~2021-05-20 06:21] MED LIST changes: +NYSTATIN15 GM TOP
[2021-05-20] MEDS ORDERED: BACLOFEN20 MG PO (06:35)
== END 2021-05-20 11:20 | disposition home or self-care (01) ==
LOC: ED 06:21
DX: N95.0 Postmenopausal bleeding (principal); K56.41 Fecal impaction; Z79.899 Other long term (current) drug therapy
CPT/HCPCS: 36415; 74177; 80048; 81001; 85025; 96375; 99284-25; J2270; J2405; J7030; Q9967